=== PATIENT | male | born 1945 | race Caucasian/White ===

== ENCOUNTER → 2016-10-19 | Day surgery (SDC) | payer OTHER ==
[2016-10-10 10:23] VITALS: Ht 180.3 cm; Wt 79.5 kg
[~2016-10-19] VITALS: Ht 180.3 cm; Wt 79.5 kg
[~2016-10-19] MED LIST: AMLO10TA4 PO; ASPEC81 PO; CARV12.52 PO; CHOL1000 PO; FERR1TAB23 PO; FURO20TA PO; GLC/500 PO; HYDR100T12 PO; LACTATED RINGER'S 1000ML 1,000 ML IV ONE; LIDOCAINE HCL 2% 2 ML VIAL (20MG/ML) ONE; PROPOFOL IV EMULSION 10 MG/ML 20 ML VIAL IV ONE; SIMV10TA2 PO; VALA1TAB2 PO
--- NOTE | 2016-10-19 08:53 | Endo History and Physical ---
History & Physical Date of Service: Oct 19, 2016. Chief Complaint: HX OF POLYPS Referring Physician: DR HERNANDEZ History of Present Illness Patient with a history of colonic polyps for surveillance colonoscopy today. He has no specific complaints.. Past Medical History Diabetes, High Cholesterol, Kidney Disease, Depression Past Surgical History Hx Cardiac Surgery: No Hx Internal Defibrillator: No Hx Pacemaker: No Hx Abdominal Surgery: No Hx of Implantable Prosthesis: No Hx Post-Op Nausea and Vomiting: No Hx Cancer Surgery: No Hx Thoracic Surgery: No Hx Orthopedic: No Hx Urinary Tract Surgery: No Family History None Social History Smoking Status: Former Smoker Hx Substance Use: No Hx Alcohol Use: Yes (OCCASIONAL) Allergies Coded Allergies: Sitagliptin (Verified Allergy, Unknown, LIGHTHEADEDNESS AND PAINS IN UPPER STOMACH, 10/19/16) Current Medications Reported Home Medications Medications Dose Route/Sig Max Daily Dose Days Date Category Dose Instructions Iron (Ferrous Sulfate) 325 Mg Tab 2 Tabs PO QAM 10/10/16 Reported Vitamin D3 (Cholecalciferol) 1,000 Unit Tab 1 Tab PO QAM 10/10/16 Reported Norvasc (Amlodipine Besylate) 10 Mg Tab 10 Mg PO QAM 10/10/16 Reported Apresoline (Hydralazine Hcl) 100 Mg Tab 100 Mg PO TID 10/10/16 Reported Glucophage (Metformin Hcl) 500 Mg Tab 2 Tabs PO BID 10/10/16 Reported Lasix (Furosemide) 20 Mg Tab 20 Mg PO QAM 03/24/12 Reported Coreg (Carvedilol) 12.5 Mg Tab 12.5 Mg PO BID 03/24/12 Reported TAKE THIS MEDICATION WITH FOOD. Valtrex (Valacyclovir Hcl) 1 Gm Tab 2,000 Mg PO Q12HR PRN/UD 11/07/11 Reported TAKE THIS MEDICATION NEEDED FOR COLD SORES FOR ONE DAY. Zocor (Simvastatin) 10 Mg Tab 10 Mg PO HS 11/07/11 Reported Ecotrin Or Generic * (Aspirin) 81 Mg Ectab 81 Mg PO QAM 07/15/06 Reported Vital Signs Weight (Kilograms): 79.55 Height (Feet): 5 Height (Inches): 11 Date Time Temp Pulse Resp B/P (MAP) Pulse Ox O2 Delivery O2 Flow Rate FiO2 10/19/16 08:39 36.6 92 20 180/89 (119) 98 Room Air Physical Exam General Appearance: no apparent distress Respiratory/Chest: Auscultation: breath sounds normal Cardiovascular: Heart Auscultation: RRR, murmur Abdomen: Inspection & Palpation: soft Assessment and Plan Colonoscopy for evaluation of colonic polyps. We discussed the risks and benefits to include bleeding, infection, perforation and missed polyps.
--- NOTE | 2016-10-19 09:28 | GI REPORT ---
Procedure Date: 10/19/2016 9:01 AM Procedure: Colonoscopy Indications: High risk colon cancer surveillance: Personal history of colonic polyps Medicines: Monitored Anesthesia Care Complications: No immediate complications. Estimated blood loss: Minimal. Estimated Blood Loss: Estimated blood loss was minimal. Procedure: Pre-Anesthesia Assessment: - Prior to the procedure, a History and Physical was performed, and patient medications, allergies and sensitivities were reviewed. The patient's tolerance of previous anesthesia was reviewed. - The risks and benefits of the procedure and the sedation options and risks were discussed with the patient. All questions were answered and informed consent was obtained. - Patient identification and proposed procedure were verified prior to the procedure by the physician, the nurse and the flight readiness technician. The procedure was verified in the procedure room. - Pre-procedure physical examination revealed no contraindications to sedation. - ASA Grade Assessment: III - A patient with severe systemic disease. - After reviewing the risks and benefits, the patient was deemed in satisfactory condition to undergo the procedure. - The anesthesia plan was to use monitored anesthesia care (MAC). - Immediately prior to administration of medications, the patient was re-assessed for adequacy to receive sedatives. - The heart rate, respiratory rate, oxygen saturations, blood pressure, adequacy of pulmonary ventilation, and response to care were monitored throughout the procedure. - The physical status of the patient was re-assessed after the procedure. After I obtained informed consent, the scope was passed under direct vision. Throughout the procedure, the patient's blood pressure, pulse, and oxygen saturations were monitored continuously. The On-site loaner was introduced through the anus and advanced to the cecum, identified by appendiceal orifice and ileocecal valve. The colonoscopy was performed without difficulty. The patient tolerated the procedure well. The quality of the bowel preparation was good. Findings: The perianal and digital rectal examinations were normal. Pertinent negatives include normal sphincter tone. The terminal ileum appeared normal. A 6 mm polyp was found in the descending colon. The polyp was sessile. The polyp was removed with a cold snare. Resection and retrieval were complete. Estimated blood loss was minimal. Many medium-mouthed diverticula were found in the sigmoid colon, in the descending colon and in the ascending colon. Internal hemorrhoids were found during retroflexion. The hemorrhoids were mild. The exam was otherwise without abnormality. Impression: - The examined portion of the ileum was normal. - One 6 mm polyp in the descending colon, removed with a cold snare. Resected and retrieved. - Mild diverticulosis in the sigmoid colon, in the descending colon and in the ascending colon. - Internal hemorrhoids. - The examination was otherwise normal. Recommendation: - Discharge patient to home (ambulatory). - Advance diet as tolerated today. - Await pathology results. - Repeat colonoscopy in 5 years for surveillance based on pathology results. - Return to GI office PRN. Essence Bagley D.O. Essence Bagley, 10/19/2016 9:27:22 AM This report has been signed electronically. Note Initiated On: 10/19/2016 9:01 AM I attest to the content of the Intraoperative Record and orders documented therein, exceptions below
--- NOTE | 2016-10-19 09:28 | Discharge Instructions ---
Endoscopy Patient Instructions Date / Procedure(s) Performed Oct 19, 2016. Colonoscopy Allergy Information Coded Allergies: Sitagliptin (Verified Allergy, Unknown, LIGHTHEADEDNESS AND PAINS IN UPPER STOMACH, 10/19/16) Discharge Date / Findings Oct 19, 2016. Internal hemorrhoids Diverticulosis 1 colon polyp Medication Instructions Stopped Medication(s): ASA ,FE 1/2 DOSE OF METFORMIN Reported Home Medications Medications Dose Route/Sig Max Daily Dose Days Date Category Dose Instructions Iron (Ferrous Sulfate) 325 Mg Tab 2 Tabs PO QAM 10/10/16 Reported Vitamin D3 (Cholecalciferol) 1,000 Unit Tab 1 Tab PO QAM 10/10/16 Reported Norvasc (Amlodipine Besylate) 10 Mg Tab 10 Mg PO QAM 10/10/16 Reported Apresoline (Hydralazine Hcl) 100 Mg Tab 100 Mg PO TID 10/10/16 Reported Glucophage (Metformin Hcl) 500 Mg Tab 2 Tabs PO BID 10/10/16 Reported Lasix (Furosemide) 20 Mg Tab 20 Mg PO QAM 03/24/12 Reported Coreg (Carvedilol) 12.5 Mg Tab 12.5 Mg PO BID 03/24/12 Reported TAKE THIS MEDICATION WITH FOOD. Valtrex (Valacyclovir Hcl) 1 Gm Tab 2,000 Mg PO Q12HR PRN/UD 11/07/11 Reported TAKE THIS MEDICATION NEEDED FOR COLD SORES FOR ONE DAY. Zocor (Simvastatin) 10 Mg Tab 10 Mg PO HS 11/07/11 Reported Ecotrin Or Generic * (Aspirin) 81 Mg Ectab 81 Mg PO QAM 07/15/06 Reported Provider Instructions Activity Restrictions - No exercising or heavy lifting for 24 hours. - Do not drink alcohol the day of the procedure. - Do not drive a car or operate machinery until the day after the procedure. - Do not make any important decisions or sign important papers in 24 hours after the procedure. Following Day: - Return to full activity which may include returning to work/school. Diet Start your diet with liquids and light foods (jello, soup, juice, toast). Then eat your usual diet if not nauseated. Treatment For Common After Affects For mild abdominal pain, bloating, or excessive gas: - Rest - Eat lightly - Lie on right side Follow-Up Information Follow-up with DR HERNANDEZ as scheduled Await pathology results Repeat colonoscopy in 5 years Consider addition of a fiber supplement Anesthesia Information What You Should Know You have had a procedure that required some medicine to reduce anxiety and discomfort. This treatment is called moderate sedation. After receiving the treatment, you may be sleepy, but you will be able to breathe on your own. The effects of the treatment may last for several hours. Follow these instructions along with Activity/Diet recommendations noted above: * Do NOT do anything where dizziness or clumsiness would be dangerous. * Rest quietly at home today, then you can be up and about tomorrow. * Have a responsible person stay with you the rest of today. * You may have had an I.V. today. If so, you may take the dressing off later today. Recommendations Call your doctor if: * Trouble breathing * Continuous vomiting for more than 24 hours * Temperature above 101 degrees * Severe abdominal pain or bloating * Pain not relieved by pain medicine ordered * There is increased drainage or redness from any incision * A large amount of rectal bleeding greater than 2-3 tablespoons. (If you had a polyp/s removed or have hemorrhoids, a small amount of blood - from the rectum is to be expected.) * You have any unanswered questions or concerns. IN THE EVENT OF A SERIOUS EMERGENCY, GO TO THE NEAREST EMERGENCY ROOM Your discharge instructions were prepared by provider Essence Bagley. Patient Instructions Signature Page Galen Jack Patient (or Guardian) Signature/Date: I have read and understand the instructions given to me by my caregivers. Caregiver/RN/Doctor Signature/Date: The above-named patient and/or guardian has received patient instructions on this date. + Original Patient Signature Page (only) stays with chart. Please make copy for patient.
[2016-10-19 10:00] VITALS: BP 165/69; PULSE 73; O2SAT 98
--- NOTE | 2016-10-19 10:08 | Anesthesiology Progress Note ---
Anesthesia Post Op Note Date & Time Oct 19, 2016 at 10:08 Vital Signs Pain Intensity: 0 Vital Signs Past 12 Hours Date Time Temp Pulse Resp B/P (MAP) Pulse Ox O2 Delivery O2 Flow Rate FiO2 10/19/16 10:00 73 20 165/69 (101) 98 Room Air 10/19/16 09:39 16 170/70 (103) 98 Room Air 10/19/16 09:24 59 16 125/57 (79) 98 Room Air 10/19/16 08:39 36.6 92 20 180/89 (119) 98 Room Air Notes Mental Status: alert / awake / arousable, participated in evaluation Pt Amnestic to Procedure: Yes Nausea / Vomiting: adequately controlled Pain: adequately controlled Airway Patency, RR, SpO2: stable & adequate BP & HR: stable & adequate Hydration State: stable & adequate Anesthetic Complications: no major complications apparent
== END | disposition home or self-care (01) ==
LOC: C.GI 07:41
PROVIDERS: ATTEND Internal Medicine Gastroenterology
DX: Z12.11 Encounter for screening for malignant neoplasm of colon (principal); Z86.010 Personal history of colon polyps; D12.4 Benign neoplasm of descending colon; K64.8 Other hemorrhoids; E11.9 Type 2 diabetes mellitus without complications; K57.30 Diverticulosis of large intestine without perforation or abscess without bleeding; E78.00 Pure hypercholesterolemia, unspecified; F32.9 Major depressive disorder, single episode, unspecified; Z87.891 Personal history of nicotine dependence; Z79.82 Long term (current) use of aspirin

== ENCOUNTER 2018-07-13 08:51 | Inpatient (IN) ==
--- NOTE | 2018-07-13 09:53 | Emergency Department Note ---
Entered by Oli Perez acting as a scribe for History of Present Illness General Chief complaint: Leg Weakness, Bilateral Stated complaint: LOST FEELING IN BOTH LEGS AND HANDS ARE GOING NUMB Time Seen by Provider: 07/13/18 09:29 Source: patient Mode of arrival: ambulatory History of Present Illness Provider complaint: Leg Weakness Onset (ago): day(s) 2 Location: lower extremity Radiation: back (lower back ) Pain Consistency: + constant Quality: + other (Leg Weakness,) Associated symptoms: + headaches; no chest pain and no shortness of breath Patient is a 72 year old male who presents himself to the ER with complaint of leg weakness beginning three days ago. Patient was working on modifying his jeep. He was leaning over the baxter of the vehicle when he tripped over a foot stool which was on the ground. Patient states he did not his head on the impact of the fall. After the incident patient went about his regular day and woke up the next morning and had leg weakness. He rates his pain consistency as constant. Patient states the pain does radiate to his lower back as well. Patent states he is diabetic and takes regular aspirin. He denies chest pain and shortness of breath. Home Medications Home Medications Medication Instructions Recorded Confirmed Type amlodipine [Norvasc] 10 mg PO QAM 11/27/17 07/13/18 History aspirin [Aspirin Low Dose] 81 mg PO QAM 11/27/17 07/13/18 History atorvastatin [Lipitor] 20 mg PO DAILY 11/27/17 07/13/18 History carvedilol [Coreg] 12.5 mg PO BID 11/27/17 07/13/18 History cholecalciferol (vitamin D3) 3,000 unit PO QAM 11/27/17 07/13/18 History [Vitamin D3] ferrous sulfate 325 mg PO BID 11/27/17 07/13/18 History hydralazine 100 mg PO TID 11/27/17 07/13/18 History paroxetine HCl [Paxil] 20 mg PO DAILY 11/27/17 07/13/18 History torsemide 10 mg PO DAILY 07/13/18 07/13/18 History Allergies Allergy/AdvReac Type Severity Reaction Status Date / Time sitagliptin Allergy Unknown LIGHTHEADEDNESS Verified 11/27/17 17:46 AND PAINS IN UPPER STOMACH Past Med/Surg History Medical History Diabetes mellitus, type II (Chronic) Chronic renal failure, stage 4 (severe) (Chronic) HTN (hypertension) (Chronic) Depression (Chronic) Hyperlipidemia (Chronic) ANI (acute kidney injury) (Resolved) Anemia (Chronic) Hgb 6.8 on admission s/p 2 units PRBCs 11/2017 Anxiety (Chronic) Surgical History History of esophagogastroduodenoscopy (EGD) (Chronic) 11/28/2017: esophagitis, +H Pylori. Performed at [facility] History of cataract surgery (Chronic) S/P colonoscopy (Chronic) Social History Preferred Language: Upper Sorbian Communication Ability: Effective [employer] Required: No Beliefs That Will Affect Care: None Current Living Situation: Alone Other Information That Helps Us Care for You: No Feels Safe at Home: Yes Safety Concerns: Feels Safe At This Time Smoking Status: Former smoker Cigarettes Per Day: 2004 Do You Dip or Chew Tobacco: No Second Hand Exposure: No Tobacco Cessation Education Requested by Patient: No Hx Alcohol Use: Yes Alcohol type: beer Alcohol Intake Frequency Comment: 3-4 beers a week Hx Substance Use: No Review of Systems See HPI for pertinent positives & negatives. and A total of 10 systems reviewed and were otherwise negative Physical Exam Vital Signs Vital Signs - 24 hr 07/13/18 08:57 07/13/18 09:14 07/13/18 10:58 Temperature 36.3 C L Temperature Source Oral Sepsis Recent Fever Within 48 Hours No Sepsis Action Taken by Nursing No Action Required Pulse Rate 87 Pulse Rate [Left Finger] 79 Pulse Rate [Right Brachial] Pulse Rhythm [Left Finger] Pulse Strength [Left Finger] Respiratory Rate 20 20 Respiratory Effort / Characteristics Respiratory Depth Respiratory Pattern Blood Pressure 169/73 H Blood Pressure [Left Arm] 173/88 H Blood Pressure [Right Arm] Blood Pressure Mean 105 Blood Pressure Mean [Left Arm] 116 Blood Pressure Mean [Right Arm] Blood Pressure Position Sitting Blood Pressure Position [Left Arm] Blood Pressure Position [Right Arm] Pulse Oximetry 100 100 98 Oxygen Delivery Method Room Air Room Air Room Air 07/13/18 12:40 07/13/18 13:54 07/13/18 14:06 Temperature Temperature Source Sepsis Recent Fever Within 48 Hours Sepsis Action Taken by Nursing Pulse Rate 75 Pulse Rate [Left Finger] 75 75 Pulse Rate [Right Brachial] Pulse Rhythm [Left Finger] Pulse Strength [Left Finger] Respiratory Rate 16 18 18 Respiratory Effort / Characteristics Respiratory Depth Respiratory Pattern Blood Pressure 155/73 H Blood Pressure [Left Arm] 167/82 H 155/73 H Blood Pressure [Right Arm] Blood Pressure Mean Blood Pressure Mean [Left Arm] 110 100 Blood Pressure Mean [Right Arm] Blood Pressure Position Blood Pressure Position [Left Arm] Blood Pressure Position [Right Arm] Pulse Oximetry 99 100 100 Oxygen Delivery Method Room Air Room Air Room Air 07/13/18 14:45 07/13/18 17:17 Temperature 37.4 C 36.3 C L Temperature Source Oral Oral Sepsis Recent Fever Within 48 Hours Sepsis Action Taken by Nursing Pulse Rate Pulse Rate [Left Finger] 74 Pulse Rate [Right Brachial] 77 Pulse Rhythm [Left Finger] Regular Pulse Strength [Left Finger] Normal Respiratory Rate 18 20 Respiratory Effort / Characteristics Non-Labored Spontaneous Respiratory Depth Normal Respiratory Pattern Regular Blood Pressure Blood Pressure [Left Arm] 158/74 H Blood Pressure [Right Arm] 168/67 H Blood Pressure Mean Blood Pressure Mean [Left Arm] 102 Blood Pressure Mean [Right Arm] 100 Blood Pressure Position Blood Pressure Position [Left Arm] Lying Blood Pressure Position [Right Arm] Semi-fowlers Pulse Oximetry 98 96 Oxygen Delivery Method Room Air Room Air General: Non-ill appearing 72 year old male in no acute distress. HEENT: Normal cephalic atraumatic. Pupils are equal round and reactive to light. Extraocular movements are intact. Oropharynx is pink with moist mucous membranes. No swelling of the mouth lips or tongue. Neck: Supple with a midline trachea. No meningeal signs or stiffness, no JVD or bruits. No Stridor. Chest: Clear to auscultation bilaterally. No wheezes or rhonchi. No increased work of breathing. Heart: regular rate and rhythm. Abdomen: Soft nontender, nondistended without rebound guarding or rigidity. Bruise left lower ribs/left upper abdomen Extremities: No cyanosis clubbing or edema. No calf tenderness or asymmetry Spine/Back. Non tender to palpation. No CVA tenderness Skin: Good turgor without rashes. Neurologic exam: Cranial nerves two through 12 are intact. Motor and sensation are intact and symmetrical throughout. 2+ lower extremities reflexes Course 0931: Past medical records reviewed. The patient was evaluated in room B10. A complete history and physical examination was performed. 1045: The patient is feeling better and will do an ambulatory trial. Patient wants to go home. 1135: I spoke with Autumn Chun PA-C regarding the patients case. Dr. Jolly will admit the patient under his care. Patient has verbalized agreement to this treatment plan. Consultations Consultation #1: Autumn Chun PA-C Time: 11:35 Administered Medications Hydralazine HCl (Apresoline) 100 mg PO TID [place] Stop: 08/12/18 14:41 Last Admin: 07/13/18 15:20 Dose: 100 mg Documented by: [id number] Sodium Chloride (Nss 1000ml) 1,000 mls @ 80 mls/hr IV .[id number] [place] Stop: 07/14/18 15:41 Last Admin: 07/13/18 15:21 Dose: 80 mls/hr Documented by: [id number] Lorazepam (Ativan) 0.5 mg PO 1500 [place] Stop: 07/13/18 23:59 Last Admin: 07/13/18 15:20 Dose: 0.5 mg Documented by: [id number] Discontinued Medications Insulin Human Regular 3 units/ (Syringe) 0.03 mls @ 0.0033 mls/min SC NOW STA Stop: 07/13/18 10:56 Last Admin: 07/13/18 11:03 Dose: 0.0033 mls/min Documented by: [id number] Cosigned by: [id number] Insulin Human Regular (Novolin R U-100 Per Unit) Confirm Administered Dose 3 units .ROUTE .STK-MED ONE Stop: 07/13/18 11:01 Last Admin: 07/13/18 11:03 Dose: Not Given Documented by: [id number] Medical Decision Making Differential Diagnosis Traumatic injuries, musculoskeletal, spinal injury, cardiac disease, infection, electrolyte or metabolic abnormality. Medical Records Attestation: I reviewed the patient's medical records. Home Medications Current Medication List: was personally reviewed by me Laboratory Data Attestation: I reviewed the patient's lab results. Result diagrams: 07/13/18 09:13 07/13/18 09:13 Lab Results 07/13/18 07/13/18 07/13/18 Range/Units 09:13 09:13 09:13 WBC 10.24 (4.8-10.8) K/uL RBC 3.76 L (4.7-6.1) M/uL Hgb 11.2 L (14.0-18.0) g/dL Hct 33.0 L (42-52) % MCV 87.8 (80-100) fL MCH 29.8 (25-34) pg MCHC 33.9 (32-36) g/dL RDW Std Deviation 41.6 (36.4-46.3) fL RDW Coeff of Juma 12.8 (11.5-14.5) % Plt Count 208 (130-400) K/uL MPV 10.9 H (7.4-10.4) fL Immature Gran % (Auto) 0.8 % Neut % (Auto) 80.1 % Lymph % (Auto) 11.3 % [place] % (Auto) 7.2 % Eos % (Auto) 0.4 % Baso % (Auto) 0.2 % Immature Gran # (Auto) 0.08 H (0.00-0.02) K/uL Neut # (Auto) 8.20 H (1.4-6.5) K/uL Lymph # (Auto) 1.16 L (1.2-3.4) K/uL [place] # (Auto) 0.74 H (0.11-0.59) K/uL Eos # (Auto) 0.04 (0-0.5) K/uL Baso # (Auto) 0.02 (0-0.2) K/uL Sodium 135 L (136-145) mmol/L Potassium 3.8 (3.5-5.1) mmol/L Chloride 104 (98-107) mmol/L Carbon Dioxide 20 L (21-32) mmol/L Anion Gap 11.0 (3-11) BUN 55 H (7-18) mg/dl Creatinine 2.85 H (0.6-1.4) mg/dl Est Cr Clr Drug Dosing 24.6 ml/min Est GFR ( Amer) 24.3 Est GFR (Non-Af Amer) 21.0 BUN/Creatinine Ratio 19.3 (10-20) Glucose 324 H* (70-99) mg/dl POC Glucose (70-99) Calcium 9.1 (8.5-10.1) mg/dl Total Bilirubin 0.4 (0.2-1) mg/dl AST 20 (15-37) U/L ALT 21 (12-78) U/L Alkaline Phosphatase 164 H (45-117) U/L Troponin I < 0.015 Cancelled (0-0.045) ng/ml Total Protein 8.8 H (6.4-8.2) gm/dl Albumin 3.8 (3.4-5.0) gm/dl Globulin 5.0 H (2.5-4.0) gm/dl Albumin/Globulin Ratio 0.8 L (0.9-2) Beta-Hydroxybutyric Acd 2.22 (0.2-2.81) mg/dl TSH 1.440 (0.300-4.500) uIu/ml Urine Color Urine Appearance (Clear) Urine pH (4.5-7.5) Ur Specific [place] (1.000-1.030) Urine Protein (Negative) Urine Glucose (UA) (Negative) Urine Ketones (Negative) Urine Blood (Negative) Urine Nitrite (Negative) Urine Bilirubin (Negative) Urine Urobilinogen (Negative) Ur Leukocyte Esterase (Negative) Urine WBC (Auto) (0-5) /hpf Urine RBC (Auto) (0-4) /hpf U Hyaline Cast (Auto) (0-5) /lpf U Epithel Cells (Auto) (0-5) /lpf Urine Bacteria (Auto) (Negative) 07/13/18 07/13/18 07/13/18 Range/Units 09:55 13:15 17:02 WBC (4.8-10.8) K/uL RBC (4.7-6.1) M/uL Hgb (14.0-18.0) g/dL Hct (42-52) % MCV (80-100) fL MCH (25-34) pg MCHC (32-36) g/dL RDW Std Deviation (36.4-46.3) fL RDW Coeff of Juma (11.5-14.5) % Plt Count (130-400) K/uL MPV (7.4-10.4) fL Immature Gran % (Auto) % Neut % (Auto) % Lymph % (Auto) % [place] % (Auto) % Eos % (Auto) % Baso % (Auto) % Immature Gran # (Auto) (0.00-0.02) K/uL Neut # (Auto) (1.4-6.5) K/uL Lymph # (Auto) (1.2-3.4) K/uL [place] # (Auto) (0.11-0.59) K/uL Eos # (Auto) (0-0.5) K/uL Baso # (Auto) (0-0.2) K/uL Sodium (136-145) mmol/L Potassium (3.5-5.1) mmol/L Chloride (98-107) mmol/L Carbon Dioxide (21-32) mmol/L Anion Gap (3-11) BUN (7-18) mg/dl Creatinine (0.6-1.4) mg/dl Est Cr Clr Drug Dosing ml/min Est GFR ( Amer) Est GFR (Non-Af Amer) BUN/Creatinine Ratio (10-20) Glucose (70-99) mg/dl POC Glucose 192 H 246 H (70-99) Calcium (8.5-10.1) mg/dl Total Bilirubin (0.2-1) mg/dl AST (15-37) U/L ALT (12-78) U/L Alkaline Phosphatase (45-117) U/L Troponin I (0-0.045) ng/ml Total Protein (6.4-8.2) gm/dl Albumin (3.4-5.0) gm/dl Globulin (2.5-4.0) gm/dl Albumin/Globulin Ratio (0.9-2) Beta-Hydroxybutyric Acd (0.2-2.81) mg/dl TSH (0.300-4.500) uIu/ml Urine Color Yellow Urine Appearance Clear (Clear) Urine pH 6.5 (4.5-7.5) Ur Specific [place] 1.013 (1.000-1.030) Urine Protein 2+ H (Negative) Urine Glucose (UA) 1+ H (Negative) Urine Ketones Negative (Negative) Urine Blood Negative (Negative) Urine Nitrite Negative (Negative) Urine Bilirubin Negative (Negative) Urine Urobilinogen Negative (Negative) Ur Leukocyte Esterase Negative (Negative) Urine WBC (Auto) 0 (0-5) /hpf Urine RBC (Auto) 0-4 (0-4) /hpf U Hyaline Cast (Auto) 0 (0-5) /lpf U Epithel Cells (Auto) 0-5 (0-5) /lpf Urine Bacteria (Auto) Negative (Negative) Imaging Data Attestation: I personally reviewed and interpreted this imaging study as follows: Radiologist's Impression: Radiology results as stated below per my review and the radiologist's interpretation: CT lumbar spine wo con HISTORY: 72 years-old Male eval for trauma, leg weakness acute low back pain status post fall with left leg weakness COMPARISON: CT abdomen and pelvis of same day TECHNIQUE: Multiple axial CT images of the lumbar spine were obtained without the use of IV contrast. A dose lowering technique was used consistent with the principals of ALARA. FINDINGS: Demineralized appearance of the bones. Severe disc space narrowing with posterior disc osteophyte complex formations noted at-L4 and L4-L5. Severe facet arthropathy at these levels is also noted along with posterior annular disc bulging. No acute fracture or subluxation identified. Remote left L5 pars defe ct. No spondylolisthesis. Image sacrum and iliac bones appear intact. Moderate degenerative changes of the SI joints. L1-L2: No significant central canal or foraminal narrowing. L2-L3: Spondylitic spurring with posterior annular disc bulge and moderate facet arthrosis with ligamentum flavum thickening. Mild central canal stenosis without significant foraminal narrowing. L3-L4: Posterior disc osteophyte complex formation with severe facet arthrosis and ligamentum flavum thickening. Findings cause moderate central canal with moderate left and mild to moderate right foraminal narrowing. L4-L5: Posterior disc osteophyte complex formation with severe facet arthrosis and ligamentum flavum thickening. Moderate central canal stenosis with mild to moderate right and moderate left foraminal narrowing. L5-S1: Circumferential annular disc bulge with severe facet arthrosis and ligamentum flavum thickening. No significant central canal or left foraminal narrowing. Mild right foraminal stenosis. No aortic aneurysm or adenopathy. Paraspinal tissues are unremarkable. IMPRESSION: 1. No acute fracture or subluxation of the lumbar spine. 2. Multilevel degenerative changes as above. The above report was generated using voice recognition software. It may contain grammatical, syntax or spelling errors. Electronically signed by: John Vitale M.D. 07/13/2018 10:19 AM Dictated: 07/13/18 1013 Transcribed: 07/13/[address] head/brain wo con CLINICAL HISTORY: 72 years-old Male with weakness. Acute weakness with recent fall TECHNIQUE: Multiple axial CT images of the head were obtained without contrast. A dose lowering technique was utilized adhering to the principles of ALARA. COMPARISON: None available. FINDINGS: No acute intracranial hemorrhage, midline shift, intracranial mass, hydrocephalus, territorial ischemia or abnormal extra-axial collection. Age- related involutional changes with ex vacuo ventriculomegaly. Scattered white matter hypodensities are suggestive of chronic microvascular ischemic changes. Cerebral vascular calcifications noted. The calvarium is intact. The paranasal sinuses, mastoid air cells, and middle ear cavities are clear. IMPRESSION: No acute intracranial abnormality. The above report was generated using voice recognition software. It may contain grammatical, syntax or spelling errors. Electronically signed by: John Vitale M.D. 07/13/2018 10:07 AM Dictated: 07/13/18 1005 Transcribed: 07/13/[address] WITHOUT CONTRAST CT DOSE: 1305.70 mGy.cm HISTORY: Acute left upper quadrant and left rib pain status post recent fall eval for trauma, Hit luq. hx of renal insuf TECHNIQUE: Multiaxial CT images of the abdomen and pelvis were performed without contrast. A dose lowering technique was utilized adhering to the principles of ALARA. COMPARISON STUDY: CT lumbar spine of same day FINDINGS: There is mild subsegmental bibasilar atelectasis. There is no pneumatosis or pneumoperitoneum. Moderate cardiomegaly with coronary arterial calcifications. Scattered calcified granulomata about the liver and spleen. 7 mm cystic focus about the pancreatic neck on image 140 series 5 indeterminate and may reflect a sidebranch IPMN. Mild generalized pancreatic atrophy. No pancreatic ductal dilation. Moderate thickening of the right adrenal gland. 1.7 cm left adrenal adenoma. Mild nonspecific bilateral perinephric stranding. Linear nonobstructing calculus of the interpolar right kidney. There is no ureteral calculi or obstructive uropathy. Mild prostamegaly. Urinary bladder is mildly distended. Small fat filled right inguinal hernia. Now prosthesis with left inferior hemipelvis pump device. Calcifications noted about the abdominal aorta. There is no adenopathy. Mild wall thickening about the distal esophagus. Moderate sized duodenal diverticulum. The study is mildly motion degraded. No bowel obstruction. Extensive colonic diverticulosis. Wall thickening throughout the sigmoid colon is likely secondary to chronic hypertrophy of the muscularis. Normal-appearing appendix. No ascites or mesenteric inflammation. Soft tissues are unremarkable. No retroperitoneal hematoma. Degenerative changes of the spine, pelvis and hips. No acute displaced rib fracture identified. Please IMPRESSION: 1. No acute intra-abdominal or intrapelvic abnormality identified. 2. No acute fracture. 3. Nonobstructing right nephrolithiasis. 4. Prior granulomatous disease. 5. Left adrenal adenoma. 6. Extensive colonic diverticulosis. Wall thickening of the sigmoid colon is likely secondary to hypertrophy of the muscularis propria secondary to chronic diverticular disease. 7. Additional findings as above. Electronically signed by: John Vitale M.D. 07/13/2018 10:31 AM Dictated: 07/13/18 1021 Transcribed: 07/13/18 1021 XR chest 1V portable HISTORY: 72 years-old Male weakness acute weakness COMPARISON: CT abdomen and pelvis of same day, chest radiograph 11/28/2017 TECHNIQUE: Portable AP view of the chest FINDINGS: Cardiomediastinal and hilar silhouettes are within normal limits. Calcification of the thoracic aortic arch. There is no pneumothorax, pleural effusion, focal airspace consolidation or overt pulmonary edema. Degenerative changes of the shoulders and spine. IMPRESSION: No acute process. The above report was generated using voice recognition software. It may contain grammatical, syntax or spelling errors. Electronically signed by: John Vitale M.D. 07/13/2018 10:32 AM Dictated: 07/13/18 1031 Transcribed: 07/13/18 1031 ECG Data Attestation: I personally reviewed and interpreted this ECG as follows: Indication: other (Leg Weakness) Rate (beats per minute): 88 Rhythm: normal sinus Findings: + left axis deviation; no other (No ischemic change ) Comparison ECG Date: from (November) Change: the following changes noted (PVCs are now absent ) Blood Pressure Blood Pressure Findings: Elevated blood pressure Blood Pressure Disposition: further management by hospitalist [facility] Narrative This patient comes in as described above. He is complaining of weakness in both of his legs and may be his arms. On exam, he has a normal neurologic exam. he feels particularly weak and has pain in his left lower back when he moves or tries to get up. He has normal reflexes. He did fall on Saturday and had some minor trauma where he hit his left upper abdomen/lower chest. He has had no chest pain or shortness of breath. He does have a history of diabetes and renal failure. IV access established. EKG was obtained in multiple blood testing was obtained. I also ordered CAT scans without contrast given his severe chronic renal failure. His EKG does not suggest acute coronary syndrome or arrhythmia. His blood sugar was elevated in 300s. He is mildly acidotic but has no ketones. He was given insulin 3 units subcu to bring this down. He has no evidence to suggest DKA at this point. I do not think is likely causing his symptoms. CAT scan of his head as well as back and abdomen were unremarkable for any acute findings. He does have a lot of degenerative changes and some spinal stenosis and spine and it is possible that it is causing these. I did get him up and have him walk. he does have a hard time walking. he can walk with a walker but seems very weak and this is new for him. I am concerned about sending him home from a safety issue and also want to make sure is nothing else going on he may need further work-up including possible MRIs. I have counseled the hospitalist to see him in the ER for these measures. Impression & Plan Weakness, Hyperglycemia, Diabetes mellitus, type II, Contusion of rib on left side, Ambulatory dysfunction Discharge Plan Visit Data *Final* Discharge Date/Time: 07/13/18 14:06 Chief Complaint: Leg Weakness, Bilateral Stated Complaint: LOST FEELING IN BOTH LEGS AND HANDS ARE GOING NUMB ED Provider: José Miguel Miller Discharge Problem: Weakness, Hyperglycemia, Diabetes mellitus, type II, Contusion of rib on left side, Ambulatory dysfunction Patient Disposition: Admitted As Inpatient Discharge Instructions Interventions: ED Discharge Assessment Last Done: 07/13/18 14:06 The vikkiibe's documentation has been prepared under my direction and personally reviewed by me in its entirety. I confirm that the note above accurately reflects all work, treatment, procedures, and medical decision making performed by me.
--- NOTE | 2018-07-13 10:08 | CT Scan Report ---
CT head/brain wo con CLINICAL HISTORY: 72 years-old Male with weakness. Acute weakness with recent fall TECHNIQUE: Multiple axial CT images of the head were obtained without contrast. A dose lowering tech nique was utilized adhering to the principles of ALARA. COMPARISON: None available. FINDINGS: No acute intracranial hemorrhage, midline shift, intracranial mass, hydrocephalus, territorial ischem ia or abnormal extra-axial collection. Age-related involutional changes with ex vacuo ventriculomegal y. Scattered white matter hypodensities are suggestive of chronic microvascular ischemic changes. Cer ebral vascular calcifications noted. The calvarium is intact. The paranasal sinuses, mastoid air cells, and middle ear cavities are clear . IMPRESSION: No acute intracranial abnormality. The above report was generated using voice recognition software. It may contain grammatical, syntax o r spelling errors. Electronically signed by: John Vitale M.D. 07/13/2018 10:07 AM
[2018-07-13 10:09] LABS: Basophils # (auto) 0.02 K/uL (0-0.2); Basophils % (auto) 0.2 %; Eosinophils # (auto) 0.04 K/uL (0-0.5); Eosinophils % (auto) 0.4 %; Hemoglobin 11.2 g/dL (14.0-18.0); Immature Granulocytes # (auto) 0.08 K/uL (0.00-0.02); Immature Granulocytes % (auto) 0.8 %; Lymphocytes # (auto) 1.16 K/uL (1.2-3.4); Lymphocytes % (auto) 11.3 %; Mean Corpuscular Hgb Conc 33.9 g/dL (32-36); Mean Corpuscular Volume 87.8 fL (80-100); Mean Platelet Volume 10.9 fL (7.4-10.4); Monocytes # (auto) 0.74 K/uL (0.11-0.59); Monocytes % (auto) 7.2 %; Neutrophils % (auto) 80.1 %; Platelet Count 208 K/uL (130-400); RDW Coefficient of Variation 12.8 % (11.5-14.5); RDW Standard Deviation 41.6 fL (36.4-46.3); Red Blood Count 3.76 M/uL (4.7-6.1); White Blood Count 10.24 K/uL (4.8-10.8)
[2018-07-13 10:13] LABS: Appearance Urine Clear (Clear); Bacteria Urine Automated Negative (Negative); Bilirubin Urine Negative (Negative); Blood Urine Negative (Negative); Cast Urine Automated 0 /lpf (0-5); Color Urine Yellow; Epithelial Cell Urine Auto 0-5 /lpf (0-5); Glucose Urine UA 1+ (Negative); Ketones Urine Negative (Negative); Leukocyte Esterase Urine Negative (Negative); Nitrite Urine Negative (Negative); Protein Urine 2+ (Negative); RBC Urine Automated 0-4 /hpf (0-4); Specific Gravity Urine 1.013 (1.000-1.030); Urobilinogen Urine Negative (Negative); WBC Urine Automated 0 /hpf (0-5); pH Urine 6.5 (4.5-7.5)
[2018-07-13 10:21] LABS: Alanine Aminotransferase 21 U/L (12-78); Albumin Level 3.8 gm/dl (3.4-5.0); Aspartate Aminotransferase 20 U/L (15-37); BUN Creatinine Ratio 19.3 (10-20); Blood Urea Nitrogen 55 mg/dl (7-18); Calcium 9.1 mg/dl (8.5-10.1); Carbon Dioxide 20 mmol/L (21-32); Chloride 104 mmol/L (98-107); Creatinine Clr Calc Pharmacy 24.6 ml/min; Est GFR (African American) 24.3; Glucose 324 mg/dl (70-99); Potassium 3.8 mmol/L (3.5-5.1); Sodium 135 mmol/L (136-145)
--- NOTE | 2018-07-13 10:21 | CT Scan Report ---
CT lumbar spine wo con HISTORY: 72 years-old Male eval for trauma, leg weakness acute low back pain status post fall with l eft leg weakness COMPARISON: CT abdomen and pelvis of same day TECHNIQUE: Multiple axial CT images of the lumbar spine were obtained without the use of IV contrast. A dose lowering technique was used consistent with the principals of EBER. FINDINGS: Demineralized appearance of the bones. Severe disc space narrowing with posterior disc osteophyte com plex formations noted at-L4 and L4-L5. Severe facet arthropathy at these levels is also noted along w ith posterior annular disc bulging. No acute fracture or subluxation identified. Remote left L5 pars defect. No spondylolisthesis. Image sacrum and iliac bones appear intact. Moderate degenerative rasheed es of the SI joints. L1-L2: No significant central canal or foraminal narrowing. L2-L3: Spondylitic spurring with posterior annular disc bulge and moderate facet arthrosis with ligam entum flavum thickening. Mild central canal stenosis without significant foraminal narrowing. L3-L4: Posterior disc osteophyte complex formation with severe facet arthrosis and ligamentum flavum thickening. Findings cause moderate central canal with moderate left and mild to moderate right vicky inal narrowing. L4-L5: Posterior disc osteophyte complex formation with severe facet arthrosis and ligamentum flavum thickening. Moderate central canal stenosis with mild to moderate right and moderate left foraminal n arrowing. L5-S1: Circumferential annular disc bulge with severe facet arthrosis and ligamentum flavum thickenin g. No significant central canal or left foraminal narrowing. Mild right foraminal stenosis. No aortic aneurysm or adenopathy. Paraspinal tissues are unremarkable. IMPRESSION: 1. No acute fracture or subluxation of the lumbar spine. 2. Multilevel degenerative changes as above. The above report was generated using voice recognition software. It may contain grammatical, syntax o r spelling errors. Electronically signed by: John Vitale M.D. 07/13/2018 10:19 AM
[2018-07-13 10:24] LABS: Albumin Globulin Ratio 0.8 (0.9-2); Alkaline Phosphatase 164 U/L (45-117); Bilirubin,Total 0.4 mg/dl (0.2-1); Total Protein 8.8 gm/dl (6.4-8.2); Troponin I < 0.015 ng/ml (0-0.045)
[2018-07-13 10:31] LABS: Beta-Hydroxybutyrate 2.22 mg/dl (0.2-2.81)
--- NOTE | 2018-07-13 10:32 | CT Scan Report ---
ABDOMEN AND PELVIS CT WITHOUT CONTRAST CT DOSE: 1305.70 mGy.cm HISTORY: Acute left upper quadrant and left rib pain status post recent fall eval for trauma, Hit neena q. hx of renal insuf TECHNIQUE: Multiaxial CT images of the abdomen and pelvis were performed without contrast. A dose lo wering technique was utilized adhering to the principles of ALARA. COMPARISON STUDY: CT lumbar spine of same day FINDINGS: There is mild subsegmental bibasilar atelectasis. There is no pneumatosis or pneumoperitoneum. Modera te cardiomegaly with coronary arterial calcifications. Scattered calcified granulomata about the liver and spleen. 7 mm cystic focus about the pancreatic ne ck on image 140 series 5 indeterminate and may reflect a sidebranch IPMN. Mild generalized pancreatic atrophy. No pancreatic ductal dilation. Moderate thickening of the right adrenal gland. 1.7 cm left adrenal adenoma. Mild nonspecific bilateral perinephric stranding. Linear nonobstructing calculus of the interpolar right kidney. There is no ureteral calculi or obstructive uropathy. Mild prostamegaly. Urinary bladder is mildly distended. Small fat filled right inguinal hernia. Now prosthesis with lef t inferior hemipelvis pump device. Calcifications noted about the abdominal aorta. There is no adenop athy. Mild wall thickening about the distal esophagus. Moderate sized duodenal diverticulum. The study is m ildly motion degraded. No bowel obstruction. Extensive colonic diverticulosis. Wall thickening throug hout the sigmoid colon is likely secondary to chronic hypertrophy of the muscularis. Normal-appearing appendix. No ascites or mesenteric inflammation. Soft tissues are unremarkable. No retroperitoneal h ematoma. Degenerative changes of the spine, pelvis and hips. No acute displaced rib fracture identifi ed. Please IMPRESSION: 1. No acute intra-abdominal or intrapelvic abnormality identified. 2. No acute fracture. 3. Nonobstructing right nephrolithiasis. 4. Prior granulomatous disease. 5. Left adrenal adenoma. 6. Extensive colonic diverticulosis. Wall thickening of the sigmoid colon is likely secondary to hype rtrophy of the muscularis propria secondary to chronic diverticular disease. 7. Additional findings as above. Electronically signed by: John Vitale M.D. 07/13/2018 10:31 AM
--- NOTE | 2018-07-13 10:34 | XRay Report ---
XR chest 1V portable HISTORY: 72 years-old Male weakness acute weakness COMPARISON: CT abdomen and pelvis of same day, chest radiograph 11/28/2017 TECHNIQUE: Portable AP view of the chest FINDINGS: Cardiomediastinal and hilar silhouettes are within normal limits. Calcification of the thoracic aorti c arch. There is no pneumothorax, pleural effusion, focal airspace consolidation or overt pulmonary e demetris. Degenerative changes of the shoulders and spine. IMPRESSION: No acute process. The above report was generated using voice recognition software. It may contain grammatical, syntax o r spelling errors. Electronically signed by: John Vitale M.D. 07/13/2018 10:32 AM
[2018-07-13] MEDS ORDERED: INSULIN HUMAN REGULAR PER UNIT 3 UNITS in SYRINGE 0 ML SC STA (10:55)
[2018-07-13] MEDS ORDERED: NovoLIN-R INSULIN PER UNIT CHARGE ONE (11:00)
--- NOTE | 2018-07-13 12:42 | History & Physical Report ---
Date of Service July 13, 2018 Assessment & Plan (1) Weakness: Pt presented with c/o bilateral leg weakness with walking x 2 days. Had missed a step on step stool 3 days ago and hit anterior left ribs on car and slight "twinge sensation" to left lower back. Denies THAKKAR, dizziness, neck pain, In ER pt afebrile, vitals stable. No leukocytosis, Hgb: 11.2 (baseline 9-10), glucose: 324, Na corrected at 139, no other significant electrolyte abnormality.TSH: 1.4, negative troponin. UA unremarkable for infection CT Head: No acute intracranial abnormality. CT Lumbar spine: No acute fracture or subluxation of the lumbar spine. Multilevel degenerative changes CXR: No acute process. DDX: dehydration, hyperglycemia, lumbar etiology, stroke -gentle IVF -MRI brain to r/o stroke -MRI lumbar spine to r/o spine etiology causing LE weakness -PT/OT eval -CBC, BMP in am (2) Hyperglycemia: (3) Diabetes mellitus, type II: A1c: 6.5 on 05/14/18 Pt not on any diabetes medications Glucose: 324, beta-hydroxybutyric acid: 2.2 -Was given 3 units insulin R in ER -Repeat glucose: 192 -monitor BSGs -Novolog sliding scale (4) HTN (hypertension): Stable -continue amlodipine, carvedilol, hydralazine -will hold torsemide and re-evaluate tomorrow (5) Hyperlipidemia: -continue atorvastatin (6) Chronic renal failure, stage 4 (severe): Cr: 2.85. Baseline Cr 2.8 -monitor renal functions -avoid nephrotoxic agents when possible (7) Depression: -continue paroxetine (8) Anemia: Chronic anemia. Hgb: 11.2. Baseline Hgb: 9-10. Denies melena, hematochezia -monitor H&H -continue ferrous sulfate DVT Prophylaxis -Heparin SQ Full Code as per discussion with pt Follows with Dr Fiona Novoa for routine care Pt was seen with Dr Holley. See addendum History of Present Illness Chief Complaint: weakness Primary Care Provider: Brooklyn Carpenter MD, PhD Pt is 72 y/o M with PMH HTN, HLD, DM II, CKD IV, h/o hyperkalemia with LUCHO/ARB use presented to ER with complaint of weakness x 2 days. Patient states yesterday woke up and try to get out of bed and noticed bilateral leg weakness and difficulty standing and walking secondary to leg weakness. He states this morning when he woke up his bilateral arms felt a little weak however that resolved after getting up out of bed. Patient states 2 days ago was working on his jeep and standing on step stool and stepped off and missed a step patient states hit his left ribs on the car frame. States he has a small bruise to his ribs however not having any rib or chest or abdominal pain. Patient states when he did this he felt like he "tweaked" his left lower back. States throughout the day did not have any back pain, and since his family noticed pulling sensation to left lower back with raising of his left leg however denies significant pain. Patient denies any pain to legs. He reports chronic numbness/tingling sensation to bilateral feet which he thinks might be a little increased. Denies any other leg paresthesias. Denies history of back problems or injury in past. Denies any loss of control of bowel or bladder, saddle p aresthesias. He reports that he has been eating and drinking normally. Has not checked his blood sugars for the past couple of days usually checks couple times a week and reports fasting BSG of 120-130. Patient is not currently on any diabetes medications. States for the past 1 to 2 months has had some postnasal drip and occasional cough. He denies any increased cough, wheezing, SOB. Denies fever/chills, diaphoresis, N/V/D/C, THAKKAR, dizziness, syncope, vision changes, neck pain, CP, SOB, orthopnea, palpitations, sore throat, choking, otalgia, abdominal pain, extremity edema, rashes, urinary symptoms, melena, hematochezia. Denies any other injury or trauma. Allergies Allergy/AdvReac Type Severity Reaction Status Date / Time sitagliptin Allergy Unknown LIGHTHEADEDNESS Verified 11/27/17 17:46 AND PAINS IN UPPER STOMACH Home Medications Home Medications Medication Instructions Recorded Confirmed Type amlodipine [Norvasc] 10 mg PO QAM 11/27/17 07/13/18 History aspirin [Aspirin Low Dose] 81 mg PO QAM 11/27/17 07/13/18 History atorvastatin [Lipitor] 20 mg PO DAILY 11/27/17 07/13/18 History carvedilol [Coreg] 12.5 mg PO BID 11/27/17 07/13/18 History cholecalciferol (vitamin D3) 3,000 unit PO QAM 11/27/17 07/13/18 History [Vitamin D3] ferrous sulfate 325 mg PO BID 11/27/17 07/13/18 History hydralazine 100 mg PO TID 11/27/17 07/13/18 History paroxetine HCl [Paxil] 20 mg PO DAILY 11/27/17 07/13/18 History torsemide 10 mg PO DAILY 07/13/18 07/13/18 History Past Med/Surg History Medical History Diabetes mellitus, type II (Chronic) Chronic renal failure, stage 4 (severe) (Chronic) HTN (hypertension) (Chronic) Depression (Chronic) Hyperlipidemia (Chronic) ANI (acute kidney injury) (Resolved) Anemia (Chronic) Hgb 6.8 on admission s/p 2 units PRBCs 11/2017 Anxiety (Chronic) Surgical History History of esophagogastroduodenoscopy (EGD) (Chronic) 11/28/2017: esophagitis, +H Pylori. Performed at [facility] History of cataract surgery (Chronic) S/P colonoscopy (Chronic) Social History Preferred Language: E[place] Communication Ability: Effective Poultry Breeder Required: No Beliefs That Will Affect Care: None Current Living Situation: Alone Other Information That Helps Us Care for You: No Feels Safe at Home: Yes Safety Concerns: Feels Safe At This Time Smoking Status: Former smoker Cigarettes Per Day: 2004 Do You Dip or Chew Tobacco: No Second Hand Exposure: No Tobacco Cessation Education Requested by Patient: No Hx Alcohol Use: Yes Alcohol type: beer Alcohol Intake Frequency Comment: 3-4 beers a week Hx Substance Use: No Review of Systems Review of Systems: All systems reviewed & are unremarkable except as noted in HPI & below Physical Exam Physical Exam: General: no distress, WDWN Head: normocephalic, atraumatic Eyes: PERRL, EOM's intact, conjunctiva non-injected, anicteric ENT: normal inspection external ears, nose, mucous membranes moist Neck: supple, trachea midline, non-tender Lungs: clear, no respiratory distress, no wheezing/rhonchi/rales CV: RRR, no murmur, no pretibial edema; left anterior lower ribs with ecchymosis without any tenderness to palpation Abd: normal BS, soft, non-tender Back: no spinous process tenderness to palpation, no paraspinous tenderness to palpation, ROM back intact without tenderness. Left straight leg raise to 45 degrees with reported mild tenderness to lower back, Right straight leg raise to 45 degrees negative. Ext: no cyanosis, no calf tenderness, distal pulses intact, brisk capillary refill, sensation to light touch intact. strength 5/5 throughout upper and lower extremities with testing while pt supine in bed Neuro: A&O x 3, no focal deficits noted, normal affect Skin: warm, dry Results & Data Vital Signs (Past 12 Hours) Vital Signs Temp Pulse Pulse Resp BP BP Pulse Ox 07/13/18 10:58 79 20 173/88 H 98 07/13/18 09:14 100 07/13/18 08:57 36.3 C L 87 20 169/73 H 100 Laboratory Results Short CBC 07/13/18 Range/Units 09:13 WBC 10.24 (4.8-10.8) K/uL Hgb 11.2 L (14.0-18.0) g/dL Hct 33.0 L (42-52) % Plt Count 208 (130-400) K/uL BMP 07/13/18 09:13 Sodium 135 L Potassium 3.8 Chloride 104 Carbon Dioxide 20 L BUN 55 H Creatinine 2.85 H Glucose 324 H* Calcium 9.1 Cardiac Enzymes 07/13/18 07/13/18 Range/Units 09:13 09:13 Troponin I < 0.015 Cancelled (0-0.045) ng/ml Liver Function 07/13/18 Range/Units 09:13 Total Bilirubin 0.4 (0.2-1) mg/dl AST 20 (15-37) U/L ALT 21 (12-78) U/L Alkaline Phosphatase 164 H (45-117) U/L Albumin 3.8 (3.4-5.0) gm/dl Urine 07/13/18 Range/Units 09:55 Urine Color Yellow Urine Appearance Clear (Clear) Urine pH 6.5 (4.5-7.5) Ur Specific [place] 1.013 (1.000-1.030) Urine Protein 2+ H (Negative) Urine Glucose (UA) 1+ H (Negative) Diagnostic Findings CXR: IMPRESSION: No acute process. CT HEAD: IMPRESSION: No acute intracranial abnormality. CT LUMBAR SPINE: IMPRESSION: 1. No acute fracture or subluxation of the lumbar spine. 2. Multilevel degenerative changes as above. CT ABD/PELVIS: IMPRESSION: 1. No acute intra-abdominal or intrapelvic abnormality identified. 2. No acute fracture. 3. Nonobstructing right nephrolithiasis. 4. Prior granulomatous disease. 5. Left adrenal adenoma. 6. Extensive colonic diverticulosis. Wall thickening of the sigmoid colon is likely secondary to hypertrophy of the muscularis propria secondary to chronic diverticular disease. 7. Additional findings as above Supervising Physician Co-Signing Physician Notes Patient is a 72-year-old male with history of diabetes, CKD 4 and other problems presents with history of bilateral lower extremity weakness, difficulty ambulation secondary to weakness. Reports chronic numbness and tingling in feet which is slightly worse in since 2 days. Denies any head trauma, loss of consciousness, change in vision, speech problems, dizziness, bowel and bladder incontinence, vertigo. Please review HPI for complete details of presentation. CT head showed no acute abnormality. Lumbar CT showed no acute fracture or subluxation of the lumbar spine. Showed multilevel degenerative changes. He was also noted to have elevated blood sugar levels. Currently he is not on any diabetic medications. Previously on metformin which was discontinued years ago secondary to CKD. TSH is normal. On exam patient is moderately built and nourished, no apparent distress, lungs are clear to auscultation, S1-S2, no murmur, abdomen soft nontender, mild left lower extremity weakness noted. No other gross focal neurological deficits noted. No pedal edema. Patient will need further work-up for lower extremity weakness. Plan to get MRI head, spine. Continue aspirin and statin. Check vitamin B12 levels. PT OT ordered. Consider Neurology/Orthopedics based on MRI findings. Gentle IV fluids. Control blood sugar levels with insulin sliding scale. DD: To rule out stroke, lumbar disc disease/spinal stenosis, neuropathy. Monitor renal function. May need to be started on oral diabetic medications upon discharge. I personally reviewed the record. Patient is interviewed and examined at bedside. Patient's care is coordinated with Autumn Chun PA-C. Please refer to the documentation above for details of patient's presentation and for discussion of other issues.
[2018-07-13] MEDS ORDERED: DEXTROSE 50% 50 ML SYRINGE IV PRN (14:42)
[2018-07-13] MEDS ORDERED: ACETAMINOPHEN 325 MG TAB PO PRN (14:42)
[2018-07-13] MEDS ORDERED: CARBOHYDRATES FOR HYPOGLYCEMIA PO PRN (14:42)
[2018-07-13] MEDS ORDERED: GLUCAGON FOR INJ 1 MG VIAL SQ PRN (14:42)
[2018-07-13] MEDS ORDERED: GLUCOSE 10 TABS/TUBE PO PRN (14:42)
[2018-07-13] MEDS ORDERED: GLUCOSE 40% GEL 15 GM TUBE PO PRN (14:42)
[2018-07-13] MEDS ORDERED: LORazepam 0.5 MG TAB PO SCH (15:00)
[2018-07-13] MEDS: HydrALAZINE TAB 50 MG TAB PO SCH ×2 (15:20→20:02)
[2018-07-13] MEDS: SODIUM CHLORIDE 0.9% 1000ML 1,000 ML IV SCH (15:21)
--- NOTE | 2018-07-13 16:28 | Magnetic Resonance Report ---
MR brain wo con HISTORY: 72 years-old Male bilateral leg weakness acute bilateral leg weakness COMPARISON: CT head of same day TECHNIQUE: Multiplanar multisequence MRI of the brain was obtained without the use of IV contrast. FINDINGS: Large [id number] it disaster recovery manager localizer images demonstrate no gross extracranial abnormality. There is no restricted diffusion to suggest acute or subacute infarction. Midline structures including the corpu s callosum, brainstem, optic chiasm, pituitary and pineal glands appear unremarkable in sagittal T1 s eries. No cerebellar tonsillar herniation. Degenerative changes are noted about the imaged cervical s pine. There is no acute intracranial hemorrhage, midline shift, abnormal extra-axial collections, hydroceph alus or intracranial mass identified. Study is mildly motion degraded. Age-related involutional rasheed es. Mild to moderate patchy white matter T2/FLAIR hyperintensities are noted suggestive of chronic mi crovascular ischemic changes. Major flow voids at the level of the skull base appear patent. Mastoid air cells are clear. Mild mucosal thickening of the paranasal sinuses. Prior bilateral cataract repai r. Skull and soft tissues are within normal limits. IMPRESSION: 1. No acute intracranial abnormality. 2. Age-related involutional changes with mild to moderate chronic microvascular ischemic disease. The above report was generated using voice recognition software. It may contain grammatical, syntax o r spelling errors. Electronically signed by: John Vitale M.D. 07/13/2018 4:26 PM
--- NOTE | 2018-07-13 16:57 | Magnetic Resonance Report ---
MR lumbar spine wo con CLINICAL HISTORY: 72 years-old Male with bilateral leg weakness. Acute bilateral leg weakness COMPARISON: CT lumbar spine of same day TECHNIQUE: Multiplanar, multi sequence MRI of the lumbar spine was performed without intravenous cont rast. FINDINGS: Large [id number] gill tender localizer images demonstrate no gross extraspinal abnormality. No aortic an eurysm or adenopathy. Conus medullaris terminates at T12-L1. Signal within the imaged thoracic spinal cord is unremarkable. Cauda equina also appear to be within normal limits. Study is mildly motion de graded. There is moderate marrow edema at the inferior endplate L1 posteriorly with an acute appearin g Schmorl's node. Bone marrow signal is otherwise unremarkable. Moderate soft tissue edema tracks arteimo ng the left neuroforamen at L1-L2. 4 mm synovial cyst noted on the right posterior to the L5-S1 facet s. No acute fracture or subluxation. Moderate disc space narrowing with spondylitic spurring and posterior annular disc bulge with moderat e facet arthrosis at T10-T11 this results in mild to moderate central canal stenosis with mild left f oraminal narrowing as seen on the sagittal images alone. T12-L1: Moderate disc space narrowing with spondylitic spurring, posterior annular disc bulge with m oderate facet arthrosis. No central canal or foraminal narrowing. L1-L2: Moderate disc space narrowing with spondylitic spurring, circumferential annular disc bulge, ligamentum flavum thickening with severe facet arthrosis. No significant central canal or foraminal n arrowing. L2-L3: Moderate disc space narrowing with posterior annular disc bulge, spondylitic spurring, ligame ntum flavum thickening and severe facet arthrosis with small bilateral facet effusions. Mild central canal stenosis without foraminal narrowing. L3-L4: Severe disc space narrowing with circumferential annular disc bulge, spondylitic spurring, ad vanced facet arthrosis with small right facet effusion and ligamentum flavum thickening. Small automotive center manager ior annular fissure. Moderate central canal stenosis with mild to moderate right and moderate left fo raminal narrowing. L4-L5: Severe disc space narrowing with circumferential annular disc bulge, spondylitic spurring, li gamentum flavum thickening, right greater than left and advanced facet arthrosis. Small posterior savage ular fissure. Severe lateral recess narrowing bilaterally. Findings cause moderate to severe central canal stenosis with moderate to severe right and moderate left foraminal narrowing. L5-S1: Mild disc space narrowing with 2 mm anterolisthesis L5 on S1, likely degenerative. Mild spond ylitic spurring with circumferential annular disc bulge, severe facet arthrosis with ligamentum flavu m thickening. 3 mm synovial cyst is noted adjacent to the right ligamentum flavum. Central canal is p atent. Mild right foraminal stenosis. The left foramen is patent. IMPRESSION: 1. Moderate bone marrow edema about the left posterior lateral aspect of the L1 vertebral body associ ated with acute appearing Schmorl's node. Moderate soft tissue edema tracks along the left neuroforam en. No acute compression deformity. 2. At L3-L4 there is moderate central canal, mild to moderate right and moderate left foraminal narro wing. 3. At L4-L5 there is moderate to severe central canal with moderate to severe right and moderate left foraminal narrowing. 4. Additional findings as above. The above report was generated using voice recognition software. It may contain grammatical, syntax o r spelling errors. Electronically signed by: John Vitale M.D. 07/13/2018 4:56 PM
[2018-07-13] MEDS: INSULIN ASPART 100 UNITS/ML 3 ML PEN SC SCH ×2 (17:13→20:00)
[2018-07-13] MEDS ORDERED: PHARMACY GLYCEMIC MGMT CONSULT PRN (18:12)
[2018-07-13] MEDS: DEXAMETHASONE SOD PHOSPHATE 4 MG in SYRINGE 0 ML IV SCH (18:32)
--- NOTE | 2018-07-13 19:10 | Pharmacy Report ---
Pharmacy Glycemic Short Note 2 - Date of Service July 13, 2018 - Glycemic Short BSG Results (Last 24 hours): 07/13/18 07/13/18 07/13/18 09:13 13:15 17:02 Glucose 324 H* POC Glucose 192 H 246 H OUTPATIENT ANTIDIABETIC REGIMEN: * No diabetic meds ASSESSMENT: * Ordered DXM 4mg IV q8h x 4 doses starting 07/12/18 1800. * Ordered A1c for 07/14 AM PLAN FOR INPATIENT GLYCEMIC CONTROL: * Basal insulin * Lantus 20 units SQ x 1 now, pharmacy glycemic service to reassess 07/14 AM * Bolus insulin * NovoLog per scale ACHS & 0000/0400 * Goal Range: Low 120 mg/dL - High 160 mg/dL * "Tightened" Correction Factor: 20 mg/dL/unit * "Added" Nutritional / Prandial insulin per carb ratio of 1 unit per 8 grams CHO consumed * Please note that the plan above was derived based on current level of insulin resistance and hospital stress. These recommendations are appropriate for inpatient admission only. Plan of care upon discharge will need to be reassessed to avoid potential outpatient hypo/hyperglycemia.
[2018-07-13] MEDS ORDERED: INSULIN GLARGINE SOLOSTAR 100 UNITS/ML 3 ML PEN SC ONE (19:30)
[2018-07-13] MEDS: FERROUS SULFATE 325 MG TAB PO SCH (20:02)
[2018-07-13] MEDS: CARVEDILOL 12.5 MG TAB PO SCH (20:05)
[2018-07-14] MEDS: INSULIN ASPART 100 UNITS/ML 3 ML PEN SC SCH ×6 (00:21→20:52)
[2018-07-14] MEDS: DEXAMETHASONE SOD PHOSPHATE 4 MG in SYRINGE 0 ML IV SCH ×3 (03:10→18:09)
[2018-07-14] MEDS: SODIUM CHLORIDE 0.9% 1000ML 1,000 ML IV SCH (04:50)
[2018-07-14 06:37] LABS: Hematocrit (blood only) 31.4 % (42-52); Hemoglobin 10.8 g/dL (14.0-18.0); Mean Corpuscular Hgb Conc 34.4 g/dL (32-36); Mean Corpuscular Volume 88.2 fL (80-100); Mean Platelet Volume 10.5 fL (7.4-10.4); Platelet Count 197 K/uL (130-400); RDW Coefficient of Variation 12.9 % (11.5-14.5); RDW Standard Deviation 41.7 fL (36.4-46.3); Red Blood Count 3.56 M/uL (4.7-6.1); White Blood Count 11.98 K/uL (4.8-10.8)
[2018-07-14 07:06] LABS: Est GFR (African American) 23.6; Est GFR (Non-African American) 20.3
[2018-07-14 07:10] LABS: Estimated Average Glucose 154 mg/dl
[2018-07-14] MEDS: CHOLECALCIFEROL 1,000 UNITS TAB PO SCH (08:27)
[2018-07-14] MEDS: AMLODIPINE BESYLATE 5 MG TAB PO SCH (08:27)
[2018-07-14] MEDS: CARVEDILOL 12.5 MG TAB PO SCH ×2 (08:27→20:49)
[2018-07-14] MEDS: ATORVASTATIN 20 MG TAB PO SCH (08:27)
[2018-07-14] MEDS: PARoxetine HCl 20 MG TAB PO SCH (08:28)
[2018-07-14] MEDS: ASPIRIN 81 MG ECTAB PO SCH (08:28)
[2018-07-14] MEDS: HydrALAZINE TAB 50 MG TAB PO SCH ×3 (08:28→20:50)
[2018-07-14] MEDS: FERROUS SULFATE 325 MG TAB PO SCH ×2 (08:28→20:49)
[2018-07-14] MEDS ORDERED: NovoLIN-N (NPH) PER UNIT CHARGE SQ STA (09:13)
--- NOTE | 2018-07-14 14:33 | Neurology Consultation ---
Date of Consultation July 14, 2018 Assessment & Plan (1) Ambulatory dysfunction: 1. lower extremities weakness L>R -more proximal weakness bilaterally 2. left >right UE weakness- not related to MRI 3. orthopedic- consulted for input 4. labs- sed rate, CRP, CK, aldolase, spep 5. LP - if labs are unrevealing 6. LE sensory loss bilaterally further recommendations to follow Supervising Physician Co-Signing Physician Notes I have seen and discussed above patient with Dr Vadim Phillips. Patient was seen and examined this afternoon. No family at bedside. Patient provided the histry. He reports acute onset weakness which he noted Saturday morning when he woke. He reports difficulty walking and hard time holding arms above his head. He denies pain or numbness. He denies speech difficulty or diplopia. Denies SOB. He denies any significant trauma. Denies back pain. He reports paresthesias in his feet which are chronic. He has a history of diabetes which he states is controlled with diet. HA1c 7. On examine he is awake and alert. Comprehension intact. He is able to sit up right on bed. EOMI. Face symmetric. tongue midline. Absent ankle and knee jerks. Right biceps reflex is 2+. Absent on the left or attenuated. He is unable to lift both arm above his head and his signficiant shoulder abduction weakness, 3- /5. In both legs he has hip flexion weakness with difficulty against gravity 3/5 right, 3-/5 on the left. He also had bilateral knree extension and ankle dorsiflexion weakness. Position sense is impaired in his feet. He has no sensory neglect in the legs and intact to light touch. CK is Normal which would suggest against an inflammatory myopathy. CRP and ESR mildly elevated. Proximal weakness can bee seen in early stages of GBS and in motor neuropathies for amyloidosis or porphria. Man in a barrel syndrome can be caused by bilateral watershed infracts. MRI brain reviewed and negative for acute ischemic stroke. A central cervical spinal cord lesion can produce similar pattern of weakness but there is usually loss of pain and temperature. Recommend we obtain an MRI of the cervical spine. ordered. Will check for anti-acetylcholine receptor antibody and Lyme. Ordered. Recommend IR consult for LP for evaluation of elevated CSF protein. History of Present Illness Reason for Consultation: b/l lower ext weakness, L>R Requesting Physician: Xander Holley MD Attending Physician: Xander Holley MD History of Present Illness Galen is a 72 year old male with PMH - HTN, HLD, DM II, CKD IV, h/o hyperkalemia with LUCHO/ARB use presented to ER with complaint of weakness x 2 days. He woke up and try to get out of bed and noticed bilateral leg weakness and difficulty standing and walking secondary to leg weakness and then had some arm weakness. 2 days prior he was working on his jeep and standing on step stool and stepped off and missed a step and hit his left ribs on the car frame. he is not having any rib or chest or abdominal pain. He thinks he "tweaked" his left lower back. He had chronic numbness/tingling sensation to bilateral feet which he thinks might be a little increased. He reports that he has been eating and drinking normally no medication changes. He also states he has some chronic neck pain which he thinks is worse than prior to the leg weakness. denies CP, SOB, abdominal pain, vision change, N, V, fever chills night sweats, increase one sided numbness tingling, +left sided weakness, neck pain, lower back pain Allergies Allergy/AdvReac Type Severity Reaction Status Date / Time sitagliptin Allergy Unknown LIGHTHEADEDNESS Verified 11/27/17 17:46 AND PAINS IN UPPER STOMACH Home Medications Home Medications Medication Instructions Recorded Confirmed Type amlodipine [Norvasc] 10 mg PO QAM 11/27/17 07/13/18 History aspirin [Aspirin Low Dose] 81 mg PO QAM 11/27/17 07/13/18 History atorvastatin [Lipitor] 20 mg PO DAILY 11/27/17 07/13/18 History carvedilol [Coreg] 12.5 mg PO BID 11/27/17 07/13/18 History cholecalciferol (vitamin D3) 3,000 unit PO QAM 11/27/17 07/13/18 History [Vitamin D3] ferrous sulfate 325 mg PO BID 11/27/17 07/13/18 History hydralazine 100 mg PO TID 11/27/17 07/13/18 History paroxetine HCl [Paxil] 20 mg PO DAILY 11/27/17 07/13/18 History torsemide 10 mg PO DAILY 07/13/18 07/13/18 History Patient History Medical History Diabetes mellitus, type II (Chronic) Chronic renal failure, stage 4 (severe) (Chronic) HTN (hypertension) (Chronic) Depression (Chronic) Hyperlipidemia (Chronic) ANI (acute kidney injury) (Resolved) Anemia (Chronic) Hgb 6.8 on admission s/p 2 units PRBCs 11/2017 Anxiety (Chronic) Surgical History History of esophagogastroduodenoscopy (EGD) (Chronic) 11/28/2017: esophagitis, +H Pylori. Performed at [facility] History of cataract surgery (Chronic) S/P colonoscopy (Chronic) Social History Preferred Language: Italian Communication Ability: Effective Trial Paralegal Required: No Beliefs That Will Affect Care: None Current Living Situation: Alone Other Information That Helps Us Care for You: No Feels Safe at Home: Yes Safety Concerns: Feels Safe At This Time Smoking Status: Former smoker Cigarettes Per Day: 2004 Do You Dip or Chew Tobacco: No Second Hand Exposure: No Tobacco Cessation Education Requested by Patient: No Hx Alcohol Use: Yes Alcohol type: beer Alcohol Intake Frequency Comment: 3-4 beers a week Hx Substance Use: No Physical Exam Physical Exam: Physical Exam: Constitutional: appearance over nourished, healthy and normal Ears, Nose, Mouth and Throat: mucous membranes moist, no injection and skin normal, eyes normal Cardiovascular: normal S-1 and S-2 and regular rate and rhythm Respiratory: clear to auscultation (CTA) and no rales, rhonchi or wheeze Musculoskeletal: no peripheral edema and good distal pulses Skin: some areas of ecchymosis bilaterally LE Eyes: extraocular muscles intact (EOMI) and pupils equal, round and reactive to light (PERRL) NEUROLOGIC EXAMINATION: Mental status: Alert and interactive Oriented [facility], 2019, lives alone Oriented to person Speech fluent with no evidence of aphasia Cranial Nerves smile eye brow raise tongue midline Reflexes: Deep tendon reflexes were symmetrical decreased bilaterally no up going toes Sensory: decrease sensation to vibration to upper calf bilaterally Coordination: finger to nose bilaterally no bi pass, amezquita to heel dysmetric left Gait/Stance: Posture normal sitting up in bed Motor: Negative for pronator drift of out stretched arms with eyes closed. 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/5, left biceps triceps hand inhalation therapy aides teacher deltoids 3/5, hip flex right 3/5, plantar flex ext 5/5, left hip flex 3/5 plantar flex ext 3/5 Results & Data Vital Signs (Past 12 Hours) Vital Signs Temp Pulse Resp BP Pulse Ox 07/14/18 14:03 84 157/87 H 07/14/18 11:04 99 07/14/18 07:19 36.4 C L 92 H 16 165/83 H 97 Laboratory Results Abnormal lab results 07/13/18 07/13/18 07/14/18 Range/Units 17:02 19:42 00:09 WBC (4.8-10.8) K/uL RBC (4.7-6.1) M/uL Hgb (14.0-18.0) g/dL Hct (42-52) % MPV (7.4-10.4) fL BUN (7-18) mg/dl Creatinine (0.6-1.4) mg/dl Glucose (70-99) mg/dl POC Glucose 246 H 277 H 162 H (70-99) Hemoglobin A1c (4.5-5.6) % Vitamin B12 (211-911) pg/ml 07/14/18 07/14/18 07/14/18 Range/Units 04:24 05:41 05:41 WBC 11.98 H (4.8-10.8) K/uL RBC 3.56 L (4.7-6.1) M/uL Hgb 10.8 L (14.0-18.0) g/dL Hct 31.4 L (42-52) % MPV 10.5 H (7.4-10.4) fL BUN 58 H (7-18) mg/dl Creatinine 2.92 H (0.6-1.4) mg/dl Glucose 194 H (70-99) mg/dl POC Glucose 195 H (70-99) Hemoglobin A1c (4.5-5.6) % Vitamin B12 (211-911) pg/ml 07/14/18 07/14/18 07/14/18 Range/Units 05:41 05:41 07:29 WBC (4.8-10.8) K/uL RBC (4.7-6.1) M/uL Hgb (14.0-18.0) g/dL Hct (42-52) % MPV (7.4-10.4) fL BUN (7-18) mg/dl Creatinine (0.6-1.4) mg/dl Glucose (70-99) mg/dl POC Glucose 199 H (70-99) Hemoglobin A1c 7.0 H (4.5-5.6) % Vitamin B12 1798 H (211-911) pg/ml 07/14/18 Range/Units 11:36 WBC (4.8-10.8) K/uL RBC (4.7-6.1) M/uL Hgb (14.0-18.0) g/dL Hct (42-52) % MPV (7.4-10.4) fL BUN (7-18) mg/dl Creatinine (0.6-1.4) mg/dl Glucose (70-99) mg/dl POC Glucose 179 H (70-99) Hemoglobin A1c (4.5-5.6) % Vitamin B12 (211-911) pg/ml Diagnostic Findings CT head- No acute intracranial abnormality. L spine CT - Demineralized appearance of the bones. Severe disc space narrowing with posterior disc osteophyte complex formations noted at-L4 and L4-L5. Severe facet arthropathy at these levels is also noted along with posterior annular disc bulging. No acute fracture or subluxation identified. Remote left L5 pars defect. No spondylolisthesis. Image sacrum and iliac bones appear intact. Moderate degenerative changes of the SI joints. L1-L2: No significant central canal or foraminal narrowing. L2-L3: Spondylitic spurring with posterior annular disc bulge and moderate facet arthrosis with ligamentum flavum thickening. Mild central canal stenosis without significant foraminal narrowing. L3-L4: Posterior disc osteophyte complex formation with severe facet arthrosis and ligamentum flavum thickening. Findings cause moderate central canal with moderate left and mild to moderate right foraminal narrowing. L4-L5: Posterior disc osteophyte complex formation with severe facet arthrosis and ligamentum flavum thickening. Moderate central canal stenosis with mild to moderate right and moderate left foraminal narrowing. L5-S1: Circumferential annular disc bulge with severe facet arthrosis and ligamentum flavum thickening. No significant central canal or left foraminal narrowing. Mild right foraminal stenosis. No aortic aneurysm or adenopathy. Paraspinal tissues are unremarkable. MRI brain- No acute intracranial abnormality. Age-related involutional changes with mild to moderate chronic microvascular ischemic disease. MRI lumbar spine-Moderate bone marrow edema about the left posterior lateral aspect of the L1 vertebral body associated with acute appearing Schmorl's node. Moderate soft tissue edema tracks along the left neuroforamen. No acute compre ssion deformity. At L3-L4 there is moderate central canal, mild to moderate right and moderate left foraminal narrowing. At L4-L5 there is moderate to severe central canal with moderate to severe right and moderate left foraminal narrowing.
--- NOTE | 2018-07-14 16:37 | Hospitalist Progress Note ---
Date of Service July 14, 2018 Assessment & Plan (1) Weakness: B/L LE weakness Ambulatory Dysfunction TSH: Normal Vitamin B 12:1798 --MRI Brain: No acute intracranial abnormality. --Lumbar MRI:Moderate bone marrow edema about the left posterior lateral aspect of the L1 vertebral body associated with acute appearing Schmorl's node. Moderate soft tissue edema tracks along the left neuroforamen. No acute compression deformity. L3-L4 there is moderate central canal, mild to moderate right and moderate left foraminal narrowing. L4-L5 there is moderate to severe central canal with moderate to severe right and moderate left foraminal narrowing. --ESR, CRP, CK, aldolase, SPEP pending May need L.P if blood work negative as per Neurology Appreciate Orthopedics Input Received IV Decadron for moderate bone marrow edema Appreciate Neurology Input PT/OT Leukocytosis Likely due to Decadron Monitor Dehydration Received IV fluids (2) Hyperglycemia: (3) Diabetes mellitus, type II: A1c: 6.5 on 05/14/18 Pt not on any diabetes medications Glucose: 324, beta-hydroxybutyric acid: 2.2 on presentation Previously on Metformin--DCed due to CKD Monitor BGs BGs elevated due to Decadron Continue Novolog sliding scale (4) HTN (hypertension): Stable continue amlodipine, carvedilol, hydralazine Resume torsemide as able (5) Hyperlipidemia: continue atorvastatin (6) Chronic renal failure, stage 4 (severe): Baseline Cr 2.8 monitor renal functions Avoid nephrotoxic agents when possible (7) Depression: continue paroxetine (8) Anemia: Chronic anemia Baseline Hgb: 9-10. Denies bleeding issues Monitor H&H Continue ferrous sulfate DVT Px: Heparin SQ Code Status: Full Code Disposition: Follows with Dr Fiona Novoa for routine care Subjective Patient is seen and examined at bedside Continues to have B/L LE weakness and balance issues with ambulation Discussed with Ortho PA today Plan to involve Neurology for Input Denies Chest Pain, Sob, Dizziness Offers no other complaints Review of Systems Review of Systems: All systems reviewed & are unremarkable except as noted in HPI & below Physical Exam Physical Exam: Physical Exam: Vitals signs as noted above General Appearance:Moderately built and nourished, no apparent distress Head: normocephalic, Atraumatic Eyes: normal inspection, EOMI Neck: supple, Trachea midline Respiratory/Chest: Normal breath sounds, CTA Cardiovascular: S1, S2, No murmur Abdomen/GI:Soft, Non tender, Bowel sounds present Extremities/Musculoskelatal:normal inspection, B/L LE weakness L> R, decreased sensation Neurologic/Psych:AAOX3, grossly no focal neurological deficits Skin: normal color, warm Results & Data Vital Signs (Past 12 Hours) Vital Signs Temp Pulse Resp BP Pulse Ox 07/14/18 14:03 84 157/87 H 07/14/18 11:04 99 07/14/18 07:19 36.4 C L 92 H 16 165/83 H 97 Laboratory Results Short CBC 07/14/18 Range/Units 05:41 WBC 11.98 H (4.8-10.8) K/uL Hgb 10.8 L (14.0-18.0) g/dL Hct 31.4 L (42-52) % Plt Count 197 (130-400) K/uL BMP 07/14/18 05:41 Sodium 136 Potassium 4.0 Chloride 106 Carbon Dioxide 22 BUN 58 H Creatinine 2.92 H Glucose 194 H Calcium 9.0 (1) Diabetes mellitus, type II Diabetes mellitus complication status: without complication Diabetes mellitus rat exterminator insulin use: unspecified rat exterminator insulin use status Qualified Code(s): E11.9 - Type 2 diabetes mellitus without complications
[2018-07-14 16:54] LABS: C Reactive Protein 0.37 mg/dl (0-0.29)
[2018-07-14 17:42] LABS: INR 1.1 (0.9-1.1); Prothrombin Time 11.2 Seconds (9.0-12.0)
[2018-07-14] MEDS ORDERED: INSULIN HUMAN NPH SC ONE ×2 (18:30)
[2018-07-14] MEDS: HEPARIN SOD 5,000 UNIT/0.5 ML VIAL SQ SCH (20:51)
[2018-07-14 22:26] LABS: Lyme Ab IgG w/WB Rflx Negative (Negative); Lyme Ab IgM w/WB Rflx Negative (Negative)
--- OUTSIDE RECORDS SUMMARY | 2018-07-14 22:42 | External Medical Summary | Continuity of Care Document ---
:1945 Author Name César Campo Address Unavailable Unavailable , Care Team Providers Name Role Phone Kamlesh Pierce M.D. Unavailable [email or web address], [email or web address] Unavailable Unavailable Problems Active medical history not documented Allergies and Adverse Reactions Allergy history not documented Medications Medications not documented Procedures Procedures not documented Immunizations Immunizations not documented Plan of Treatment Planned Observations Planned Goals not documented Results No Known Results Results not documented
[2018-07-15 06:25] LABS: BUN Creatinine Ratio 23.6 (10-20); Calcium 8.9 mg/dl (8.5-10.1); Creatinine Clr Calc Pharmacy 24.7 ml/min; Est GFR (African American) 24.4; Potassium 4.2 mmol/L (3.5-5.1)
--- NOTE | 2018-07-15 06:47 | Magnetic Resonance Report ---
MRI OF THE CERVICAL SPINE WITHOUT CONTRAST CLINICAL HISTORY: proximal upper and lower weakness COMPARISON: None. TECHNIQUE: Utilizing a 1.5 Ira magnet and dedicated coil, multiplanar, multiecho imaging of the ce rvical spine was performed without IV contrast. FINDINGS: There is straightening of the normal cervical lordosis. Vertebral body heights are maintained. Cervic al cord signal and caliber are normal. There is no intracanalicular mass or fluid collection. Paraver tebral soft tissues are unremarkable. There is no marrow replacement. Multilevel disc space narrowing is noted as well as facet arthrosis. C2-C3: The central canal and neural foramen are patent. C3-C4: Posterior disc osteophyte complex contacts the ventral aspect of the cord and effaces the lesa tral thecal sac. There is no cord signal abnormality. There is moderate right and severe left neural foraminal stenosis due to facet arthrosis and uncovertebral hypertrophy. C4-C5: Disc space narrowing is noted with posterior disc osteophyte complex that contacts the ventra l cord. There is severe bilateral neural foraminal stenosis due to facet arthrosis and uncovertebral hypertrophy. C5-C6: There is minimal posterior disc osteophyte complex. This slightly effaces the ventral thecal sac. Moderate to severe bilateral neural foraminal stenosis is noted. C6-C7: Posterior disc osteophyte complex results in minimal central canal narrowing. There is modera te right and severe left neural foraminal stenosis. C7-T1: Central canal and neural foramen are patent. IMPRESSION: 1. Normal cervical cord signal and caliber. 2. Multilevel degenerative disc disease with posterior disc osteophyte complexes that contact the lesa tral aspect of the cord with mild to moderate multilevel central canal stenosis. 3. Severe multilevel neural foraminal stenosis, as detailed above. Electronically signed by: Oumar Gann M.D. 07/15/2018 6:46 AM
[2018-07-15] MEDS: HydrALAZINE TAB 50 MG TAB PO SCH ×3 (07:49→20:54)
[2018-07-15] MEDS: CARVEDILOL 12.5 MG TAB PO SCH ×2 (07:49→20:53)
[2018-07-15] MEDS: FERROUS SULFATE 325 MG TAB PO SCH ×2 (07:49→20:54)
[2018-07-15] MEDS: CHOLECALCIFEROL 1,000 UNITS TAB PO SCH (07:49)
[2018-07-15] MEDS: ASPIRIN 81 MG ECTAB PO SCH (07:49)
[2018-07-15] MEDS: AMLODIPINE BESYLATE 5 MG TAB PO SCH (07:49)
[2018-07-15] MEDS: HEPARIN SOD 5,000 UNIT/0.5 ML VIAL SQ SCH ×2 (07:50→20:53)
[2018-07-15] MEDS: ATORVASTATIN 20 MG TAB PO SCH (07:50)
[2018-07-15] MEDS: PARoxetine HCl 20 MG TAB PO SCH (07:50)
[2018-07-15] MEDS: INSULIN ASPART 100 UNITS/ML 3 ML PEN SC SCH ×4 (08:23→20:55)
[2018-07-15] MEDS ORDERED: INSULIN HUMAN NPH SC ONE ×2 (08:30→17:00)
--- NOTE | 2018-07-15 13:05 | Pharmacy Report ---
Pharmacy Glycemic Short Note 2 - Date of Service July 15, 2018 - Glycemic Short BSG Results (Last 24 hours): 07/14/18 07/14/18 07/15/18 16:33 20:11 05:20 Glucose 116 H POC Glucose 248 H 255 H 07/15/18 07/15/18 07:35 11:37 Glucose POC Glucose 136 H 129 H OUTPATIENT ANTIDIABETIC REGIMEN: * No diabetic meds ASSESSMENT: * BSGs over the previous 24hrs have yielded hyperglycemia at times, likely steroid induced. [phone]/dL. He required 61 units of insulin yesterday. Basal heavy. He is now ordered a diet. PLAN FOR INPATIENT GLYCEMIC CONTROL: * NPH 15 units given this AM, NPH scale for dinner: BSGs <120mg/dL hold NPH, BSGs >/=120mg/dL give 15 units. I anticipate the DXM's metabolic effects on BSGs will start to taper this evening. * Bolus insulin ACHS * Goal Range: Low 120 mg/dL - High 160 mg/dL * Correction Factor: 20 mg/dL/unit * Nutritional / Prandial insulin per carb ratio of 1 unit per 8 grams CHO consumed * Please note that the plan above was derived based on current level of insulin resistance and hospital stress. These recommendations are appropriate for inpatient admission only. Plan of care upon discharge will need to be reassessed to avoid potential outpatient hypo/hyperglycemia.
--- NOTE | 2018-07-15 16:21 | Orthopedic Consultation ---
Date of Consultation July 15, 2018 Assessment & Plan (1) Ambulatory dysfunction: At this time he is obtained for review a cervical thoracic and lumbar MRI. I reviewed the scans personally. While he certainly has spondylosis consistent with a active 72-year-old male I do not appreciate any significant cord compression or lumbar nerve root compression that would account for his symptom complex. Strongly recommend he continue with his neurology work-up. Do not see anything surgical at this time. Present on Admission?: Yes History of Present Illness Reason for Consultation: Bilateral leg pain Attending Physician: Xanedr Holley MD History of Present Illness This is a 72-year-old male who presents the emergency room a few days ago with significant onset of weakness involving his bilateral lower extremities and his upper extremities. He denies any specific trauma fall or event. He has no history of similar complaints. He describes weakness with raising his arms over his head which apparently he was quite comfortable doing several days prior. He has marked complaints with weakness in his quadriceps. He has significant difficulty getting out of the chair. Again he states this is entirely a new finding for the patient. He denies any clear radicular complaints and denies any loss of bowel or bladder function. He does have known peripheral neuropathy but describes no increase in symptoms. Allergies Allergy/AdvReac Type Severity Reaction Status Date / Time sitagliptin Allergy Unknown LIGHTHEADEDNESS Verified 11/27/17 17:46 AND PAINS IN UPPER STOMACH Home Medications Home Medications Medication Instructions Recorded Confirmed Type amlodipine [Norvasc] 10 mg PO QAM 11/27/17 07/13/18 History aspirin [Aspirin Low Dose] 81 mg PO QAM 11/27/17 07/13/18 History atorvastatin [Lipitor] 20 mg PO DAILY 11/27/17 07/13/18 History carvedilol [Coreg] 12.5 mg PO BID 11/27/17 07/13/18 History cholecalciferol (vitamin D3) 3,000 unit PO QAM 11/27/17 07/13/18 History [Vitamin D3] ferrous sulfate 325 mg PO BID 11/27/17 07/13/18 History hydralazine 100 mg PO TID 11/27/17 07/13/18 History paroxetine HCl [Paxil] 20 mg PO DAILY 11/27/17 07/13/18 History torsemide 10 mg PO DAILY 07/13/18 07/13/18 History Patient History Medical History Diabetes mellitus, type II (Chronic) Chronic renal failure, stage 4 (severe) (Chronic) HTN (hypertension) (Chronic) Depression (Chronic) Hyperlipidemia (Chronic) ANI (acute kidney injury) (Resolved) Anemia (Chronic) Hgb 6.8 on admission s/p 2 units PRBCs 11/2017 Anxiety (Chronic) Surgical History History of esophagogastroduodenoscopy (EGD) (Chronic) 11/28/2017: esophagitis, +H Pylori. 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 He does appear comfortable. He is weak wrapper stemmer hand bilateral upper extremities no Emmanuel sign. He is unable to raise his arms above neutral position. He is unable to get out of his chair secondary to significant quadricep weakness. He does have reasonable plantar flexion dorsiflexion bilaterally. Tendon reflexes are within normal limits. Sensory appears to be symmetric and intact. Results & Data Vital Signs (Past 12 Hours) Vital Signs Temp Pulse Resp BP Pulse Ox 07/15/18 07:04 36.5 C 84 20 155/74 H 97
--- NOTE | 2018-07-15 16:23 | Magnetic Resonance Report ---
MR thoracic spine wo con HISTORY: Pain. Weakness. lower extremity weakness TECHNIQUE: Multiplanar multisequence MRI of the thoracic spine was performed without the use of contr ast. COMPARISON: None. FINDINGS: Considerable degenerative disc change throughout the entire thoracic region. Signal characteristics o f the thoracic cord are unremarkable. No evidence for compression deformity. Moderate reactive bone marrow endplate edematous change on a d egenerative basis. Mild broad-based disc bulges T1-T6. No major compromise of the neural foramina or spinal canal. Focal right posterior osteophyte T7-T8. Mild impact anterior thoracic cord. Moderate narrowing right neuro foramina. Mild posterior disc bulges and posterior osteophyte complexes throughout the remainder the thoracic region. No evidence for a significant component of spinal or high-grade foraminal stenosis. IMPRESSION: 1. Severe degenerative disc change throughout the entire thoracic region. 2. Multilevel bulging disc and posterior osteophyte complexes creating only minimal impact upon the a nterior thoracic cord and neural foramina. 3. No evidence for significant component of spinal or foraminal stenotic change. The above report was generated using voice recognition software. It may contain grammatical, syntax or spelling errors. Electronically signed by: Gennaro Lam M.D. 07/15/2018 4:22 PM
--- NOTE | 2018-07-15 17:03 | Neurology Consultation ---
Date of Consultation July 15, 2018 Assessment & Plan (1) Ambulatory dysfunction: 1. lower extremities weakness L>R -more proximal weakness bilaterally 2. left >right UE weakness- not related to MRI 3. orthopedic- consulted for input no orthopedic needs at this time 4. labs- sed rate, CRP, CK, aldolase, spep- pending 5. LP - order for tomorrow am with protein, glucose, gram stain, cell count, culture- opening and closing pressures 6. LE sensory loss bilaterally Supervising Physician Co-Signing Physician Notes I have seen and discussed above patient with Dr Vadim Phillips. Patient seen and examined. Agree with Ana Wilcox As noted below. PAtient son at bedside. Admitted for acute onset upper and lower extremity weakness. This is new. Denies recent illness or diarrhea. MRI cervical spine was negative for cord compression or myelopathy. He has CKD and DM. Denies pain or new numbness or paresthesias. CK normal. He is has significant proximal symmetric weakness on examine. Reflexes absent in lower extremities. Needs LP for evaluation of possible GBS. IR LP ordered for evaluation of CSF protein and cell count. Appreciate help. History of Present Illness Attending Physician: Xander Holley MD Allergies Allergy/AdvReac Type Severity Reaction Status Date / Time sitagliptin Allergy Unknown LIGHTHEADEDNESS Verified 11/27/17 17:46 AND PAINS IN UPPER STOMACH Home Medications Home Medications Medication Instructions Recorded Confirmed Type amlodipine [Norvasc] 10 mg PO QAM 11/27/17 07/13/18 History aspirin [Aspirin Low Dose] 81 mg PO QAM 11/27/17 07/13/18 History atorvastatin [Lipitor] 20 mg PO DAILY 11/27/17 07/13/18 History carvedilol [Coreg] 12.5 mg PO BID 11/27/17 07/13/18 History cholecalciferol (vitamin D3) 3,000 unit PO QAM 11/27/17 07/13/18 History [Vitamin D3] ferrous sulfate 325 mg PO BID 11/27/17 07/13/18 History hydralazine 100 mg PO TID 11/27/17 07/13/18 History paroxetine HCl [Paxil] 20 mg PO DAILY 11/27/17 07/13/18 History torsemide 10 mg PO DAILY 07/13/18 07/13/18 History Patient History Medical History Diabetes mellitus, type II (Chronic) Chronic renal failure, stage 4 (severe) (Chronic) HTN (hypertension) (Chronic) Depression (Chronic) Hyperlipidemia (Chronic) ANI (acute kidney injury) (Resolved) Anemia (Chronic) Hgb 6.8 on admission s/p 2 units PRBCs 11/2017 Anxiety (Chronic) Surgical History History of esophagogastroduodenoscopy (EGD) (Chronic) 11/28/2017: esophagitis, +H Pylori. 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 Beliefs That Will Affect Care: None Current Living Situation: Alone Other Information That Helps Us Care for You: No Feels Safe at Home: Yes Safety Concerns: Feels Safe At This Time Smoking Status: Former smoker Cigarettes Per Day: 2004 Do You Dip or Chew Tobacco: No Second Hand Exposure: No Tobacco Cessation Education Requested by Patient: No Hx Alcohol Use: Yes Alcohol type: beer Alcohol Intake Frequency Comment: 3-4 beers a week Hx Substance Use: No Physical Exam Physical Exam: Gen: alert NAD lungs course breath sounds CV RRR UE biceps triceps deltoids 3/5 bilaterally slightly decreased in HOME, hip flex 3/5, plantar flex ext 5/5 reflexes decreased throughout sensation loss bilaterally LE with GT proprioception absent Results & Data Vital Signs (Past 12 Hours) Vital Signs Temp Pulse Resp BP Pulse Ox 07/15/18 07:04 36.5 C 84 20 155/74 H 97 Laboratory Results Abnormal lab results 07/14/18 07/14/18 07/15/18 Range/Units 05:41 20:11 05:20 ESR 43 H (0-14) mm/hr Carbon Dioxide 20 L (21-32) mmol/L BUN 67 H (7-18) mg/dl Creatinine 2.84 H (0.6-1.4) mg/dl BUN/Creatinine Ratio 23.6 H (10-20) Glucose 116 H (70-99) mg/dl POC Glucose 255 H (70-99) 07/15/18 07/15/18 07/15/18 Range/Units 07:35 11:37 16:45 ESR (0-14) mm/hr Carbon Dioxide (21-32) mmol/L BUN (7-18) mg/dl Creatinine (0.6-1.4) mg/dl BUN/Creatinine Ratio (10-20) Glucose (70-99) mg/dl POC Glucose 136 H 129 H 171 H (70-99) Diagnostic Findings MRI t spine Severe degenerative disc change throughout the entire thoracic region. Multilevel bulging disc and posterior osteophyte complexes creating only minimal impact upon the anterior thoracic cord and neural foramina. MRI c spine- Normal cervical cord signal and caliber. Multilevel degenerative disc disease with posterior disc osteophyte complexes that contact the ventral aspect of the cord with mild to moderate multilevel central canal stenosis. Severe multilevel neural foraminal stenosis, as detailed above.
--- NOTE | 2018-07-15 17:45 | Hospitalist Progress Note ---
Date of Service July 15, 2018 Assessment & Plan (1) Weakness: B/L LE weakness Ambulatory Dysfunction TSH: Normal Vitamin B 12:1798 --MRI Brain: No acute intracranial abnormality. --Lumbar MRI:Moderate bone marrow edema about the left posterior lateral aspect of the L1 vertebral body associated with acute appearing Schmorl's node. Moderate soft tissue edema tracks along the left neuroforamen. No acute compression deformity. L3-L4 there is moderate central canal, mild to moderate right and moderate left foraminal narrowing. L4-L5 there is moderate to severe central canal with moderate to severe right and moderate left foraminal narrowing. --Neck MRI:Normal cervical cord signal and caliber. Multilevel degenerative disc disease with posterior disc osteophyte complexes that contact the ventral aspect of the cord with mild to moderate multilevel central canal stenosis. Severe multilevel neural foraminal stenosis, as detailed above. --Throracic MRI: Severe degenerative disc change throughout the entire thoracic region. Multilevel bulging disc and posterior osteophyte complexes creating only minimal impact upon the anterior thoracic cord and neural foramina. No evidence for significant component of spinal or foraminal stenotic change. --Imaging studies not contributory to symptoms --ESR: 43 CRP:0.37 CK:178 Aldolase:pending SPEP: pending TSH:1.4 Lyme Screen: negative LIA:pending --Lumbar Puncture ordered --Appreciate Neurology/Orthopedics Input Received IV Decadron--No improvement --PT/OT Leukocytosis Likely due to Decadron Monitor Dehydration Received IV fluids (2) Hyperglycemia: (3) Diabetes mellitus, type II: A1c: 6.5 on 05/14/18 Pt not on any diabetes medications Glucose: 324, beta-hydroxybutyric acid: 2.2 on presentation Previously on Metformin--DCed due to CKD Monitor BGs BGs elevated due to Decadron Continue Novolog sliding scale (4) HTN (hypertension): Stable continue amlodipine, carvedilol, hydralazine Resume torsemide as able (5) Hyperlipidemia: continue atorvastatin (6) Chronic renal failure, stage 4 (severe): Baseline Cr 2.8 monitor renal functions Avoid nephrotoxic agents when possible (7) Depression: continue paroxetine (8) Anemia: Chronic anemia Baseline Hgb: 9-10. Denies bleeding issues Monitor H&H Continue ferrous sulfate DVT Px: Heparin SQ Code Status: Full Code Disposition: Follows with Dr Fiona Novoa for routine care Subjective Patient is seen and examined at bedside No change in B/L LE weakness and balance issues with ambulation Appreciate Ortho and Neuro Input Planned for L.P for further eval Offers no other complaints Review of Systems Review of Systems: All systems reviewed & are unremarkable except as noted in HPI & below Physical Exam Physical Exam: Physical Exam: Vitals signs as noted above General Appearance:Moderately built and nourished, no apparent distress Head: normocephalic, Atraumatic Eyes: normal inspection, EOMI Neck: supple, Trachea midline Respiratory/Chest: Normal breath sounds, CTA Cardiovascular: S1, S2, No murmur Abdomen/GI:Soft, Non tender, Bowel sounds present Extremities/Musculoskelatal:normal inspection, B/L LE weakness L> R, decreased sensation Neurologic/Psych:AAOX3, grossly no focal neurological deficits Skin: normal color, warm Results & Data Vital Signs (Past 12 Hours) Vital Signs Temp Pulse Resp BP Pulse Ox 07/15/18 07:04 36.5 C 84 20 155/74 H 97 Laboratory Results [facility] 07/15/18 05:20 Sodium 137 Potassium 4.2 Chloride 107 Carbon Dioxide 20 L BUN 67 H Creatinine 2.84 H Glucose 116 H Calcium 8.9 (1) Diabetes mellitus, type II Diabetes mellitus complication status: without complication Diabetes mellitus snf insulin use: unspecified snf insulin use status Qualified Code(s): E11.9 - Type 2 diabetes mellitus without complications
[2018-07-16 05:47] LABS: Hematocrit (blood only) 32.6 % (42-52); Hemoglobin 11.5 g/dL (14.0-18.0); Mean Corpuscular Hgb Conc 35.3 g/dL (32-36); Mean Corpuscular Volume 86.9 fL (80-100); Mean Platelet Volume 10.1 fL (7.4-10.4); Platelet Count 195 K/uL (130-400); Red Blood Count 3.75 M/uL (4.7-6.1); White Blood Count 22.23 K/uL (4.8-10.8)
[2018-07-16 06:22] LABS: BUN Creatinine Ratio 26.6 (10-20); Calcium 8.3 mg/dl (8.5-10.1); Creatinine Clr Calc Pharmacy 23.5 ml/min; Est GFR (Non-African American) 19.9; Potassium 3.9 mmol/L (3.5-5.1)
[2018-07-16] MEDS: HEPARIN SOD 5,000 UNIT/0.5 ML VIAL SQ SCH (07:46)
[2018-07-16] MEDS ORDERED: POLYETHYLENE (MIRALAX) 17 GM PACK PO SCH (07:50)
[2018-07-16] MEDS: PARoxetine HCl 20 MG TAB PO SCH (08:01)
[2018-07-16] MEDS: CHOLECALCIFEROL 1,000 UNITS TAB PO SCH (08:01)
[2018-07-16] MEDS: AMLODIPINE BESYLATE 5 MG TAB PO SCH (08:01)
[2018-07-16] MEDS: ATORVASTATIN 20 MG TAB PO SCH (08:01)
[2018-07-16] MEDS: FERROUS SULFATE 325 MG TAB PO SCH (08:01)
[2018-07-16] MEDS: CARVEDILOL 12.5 MG TAB PO SCH (08:02)
[2018-07-16] MEDS: HydrALAZINE TAB 50 MG TAB PO SCH ×2 (08:02→14:20)
[2018-07-16] MEDS: INSULIN ASPART 100 UNITS/ML 3 ML PEN SC SCH ×3 (08:03→18:22)
[2018-07-16] MEDS: INSULIN HUMAN NPH SC SCH ×2 (09:21→18:18)
--- NOTE | 2018-07-16 14:08 | Fluoroscopy Report ---
FLUOROSCOPIC GUIDED LUMBAR PUNCTURE CLINICAL HISTORY: New onset extremity weakness. PROCEDURE: The risks, benefits, and alternatives to the procedure is discussed with the patient who v oiced understanding. Written informed consent was obtained. The patient was placed prone on the fluor oscopy table. The lower back was prepped and draped in the usual sterile fashion. 1% lidocaine was us ed for local anesthesia. A 20-gauge spinal needle was inserted into the L2-L3 interlaminar space, and approximately 10 cc of clear colorless cerebrospinal fluid was removed. Opening and closing pressure s were performed. 2 spot images were saved. The patient tolerated the procedure well. There were no i mmediate complications. The patient was then transported to medical floor for further observation. Fluoroscopy time: 1.3 minutes Opening pressures: 10 cm of water Closing pressures: 8 cm of water IMPRESSION: Fluoroscopic guided lumbar puncture with removal of approximately 10 cc of cerebrospinal fluid. There were no immediate complications. Electronically signed by: Jon Noyola M.D. 07/16/2018 2:07 PM
[2018-07-16 14:19] LABS: CSF Chemistry Tube # 1
[2018-07-16 14:23] LABS: Appearance CSF Clear; CSF Count Tube # 3; CSF Xanthrochromic No xanthochromia; Color CSF Colorless; Red Blood Cell CSF (A) 1 /uL (0-); Red Blood Cell CSF (B) 0 /uL (0-); White Blood Cell CSF (A) 1 /uL (0-5); White Blood Cell CSF (B) 1 /uL (0-5)
[2018-07-16 14:27] LABS: CSF Glucose 91 mg/dl (40-70); Total Protein CSF 72.4 mg/dl (15-45)
--- NOTE | 2018-07-16 14:44 | Neurology Progress Note ---
Date of Service July 16, 2018 Assessment & Plan (1) Ambulatory dysfunction: 1. lower extremities weakness L>R -more proximal weakness bilaterally 2. left >right UE weakness- not related to MRI 3. orthopedic- consulted for input no orthopedic needs at this time 4. labs- sed rate, CRP, CK, aldolase, spep- pending 5. LP - order for tomorrow am with protein, glucose, gram stain, cell count, culture- opening and closing pressures 6. LE sensory loss bilaterally 7. flat for 2-4 hours further evaluation tomorrow Supervising Physician Co-Signing Physician Notes I have seen and discussed above patient with Dr Zeus Phillips. Patient was seen and examined. Had LP today. CSF protein elevated at 73. Csf glucose elevated, although he is diabetic and serum glucose has been elevated. 1 WBC. He reports minimal to no improvement in weakness. Remains areflexic in the lower extremities. On examine he has proximal and distal weakness (proximal>distal) in all 4 extremities; L>R. 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 Recommend transfer to [facility] for further evaluation and treatment. Case discuss with Dr. Richards at [facility] in [place], [place]. Patient argeed to plan of care. Godwin Aaron is a 72 year old male with PMH - HTN, HLD, DM II, CKD IV, h/o hyperkalemia with LUCHO/ARB use presented to ER with complaint of weakness x 2 days. He woke up and try to get out of bed and noticed bilateral leg weakness and difficulty standing and walking secondary to leg weakness and then had some arm weakness. 2 days prior he was working on his jeep and standing on step stool and stepped off and missed a step and hit his left ribs on the car frame. he is not having any rib or chest or abdominal pain. He thinks he "tweaked" his left lower back. He had chronic numbness/tingling sensation to bilateral feet which he thinks might be a little increased. He reports that he has been eating and drinking normally no medication changes. He also states he has some chronic neck pain which he thinks is worse than prior to the leg weakness. He had the LP today and is flat. He states he feels good no new complaints. 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 4/5, deltoids 3/5, hip flex 3+/5, plantar flex ext 5/5 neuro smile eye brow raise symmetric reflexes decreased throughout Results & Data Vital Signs (Past 12 Hours) Vital Signs Temp Pulse Resp BP Pulse Ox 07/16/18 07:29 36.5 C 81 16 153/66 H 95 Laboratory Results Abnormal lab results 07/15/18 07/15/18 07/16/18 Range/Units 16:45 19:53 05:17 WBC (4.8-10.8) K/uL RBC (4.7-6.1) M/uL Hgb (14.0-18.0) g/dL Hct (42-52) % Sodium 135 L (136-145) mmol/L BUN 79 H (7-18) mg/dl Creatinine 2.98 H (0.6-1.4) mg/dl BUN/Creatinine Ratio 26.6 H (10-20) Glucose 111 H (70-99) mg/dl POC Glucose 171 H 108 H (70-99) Calcium 8.3 L (8.5-10.1) mg/dl CSF Glucose (40-70) mg/dl CSF Total Protein (15-45) mg/dl 07/16/18 07/16/18 07/16/18 Range/Units 05:17 07:41 11:55 WBC 22.23 H (4.8-10.8) K/uL RBC 3.75 L (4.7-6.1) M/uL Hgb 11.5 L (14.0-18.0) g/dL Hct 32.6 L (42-52) % Sodium (136-145) mmol/L BUN (7-18) mg/dl Creatinine (0.6-1.4) mg/dl BUN/Creatinine Ratio (10-20) Glucose (70-99) mg/dl POC Glucose 136 H 181 H (70-99) Calcium (8.5-10.1) mg/dl CSF Glucose (40-70) mg/dl CSF Total Protein (15-45) mg/dl 07/16/18 Range/Units 13:55 WBC (4.8-10.8) K/uL RBC (4.7-6.1) M/uL Hgb (14.0-18.0) g/dL Hct (42-52) % Sodium (136-145) mmol/L BUN (7-18) mg/dl Creatinine (0.6-1.4) mg/dl BUN/Creatinine Ratio (10-20) Glucose (70-99) mg/dl POC Glucose (70-99) Calcium (8.5-10.1) mg/dl CSF Glucose 91 H (40-70) mg/dl CSF Total Protein 72.4 H (15-45) mg/dl Diagnostic Findings LP-Fluoroscopic guided lumbar puncture with removal of approximately 10 cc of cerebrospinal fluid. There were no immediate complications. opening pressure 10 closing pressure 8
--- NOTE | 2018-07-16 14:54 | Pharmacy Report ---
Pharmacy Glycemic Short Note 2 - Date of Service July 16, 2018 - Glycemic Short BSG Results (Last 24 hours): 07/15/18 07/15/18 07/16/18 16:45 19:53 05:17 Glucose 111 H POC Glucose 171 H 108 H 07/16/18 07/16/18 07:41 11:55 Glucose POC Glucose 136 H 181 H OUTPATIENT ANTIDIABETIC REGIMEN: * No diabetic meds ASSESSMENT: * BSGs over the previous 24hrs were much improved. It appears steroid effect is tapering off, thus I will back off of NPH significantly. He required 43 units of insulin yesterday. He is ordered a diet. Will continue with current novolog coverage, but this may need to be loosened going forward. I did lower goal range. PLAN FOR INPATIENT GLYCEMIC CONTROL: * NPH 5 units SQ BID with meals * Bolus insulin ACHS * Goal Range: Low 110 mg/dL - High 140 mg/dL * Correction Factor: 20 mg/dL/unit * Nutritional / Prandial insulin per carb ratio of 1 unit per 8 grams CHO consumed * Please note that the plan above was derived based on current level of insulin resistance and hospital stress. These recommendations are appropriate for inpatient admission only. Plan of care upon discharge will need to be reassessed to avoid potential outpatient hypo/hyperglycemia.
--- NOTE | 2018-07-16 16:07 | Hospitalist Progress Note ---
Date of Service July 16, 2018 Assessment & Plan (1) Weakness: Presented with sudden onset of B/L LE weakness Leading to fall ambulatory Dysfunction - TSH: Normal Vitamin B 12:1798 --MRI Brain: No acute intracranial abnormality. --Lumbar MRI:Moderate bone marrow edema about the left posterior lateral aspect of the L1 vertebral body associated with acute appearing Schmorl's node. Moderate soft tissue edema tracks along the left neuroforamen. No acute compression deformity. L3-L4 there is moderate central canal, mild to moderate right and moderate left foraminal narrowing. L4-L5 there is moderate to severe central canal with moderate to severe right and moderate left foraminal narrowing. --Neck MRI:Normal cervical cord signal and caliber. Multilevel degenerative disc disease with posterior disc osteophyte complexes that contact the ventral aspect of the cord with mild to moderate multilevel central canal stenosis. Severe multilevel neural foraminal stenosis, as detailed above. --Throracic MRI: Severe degenerative disc change throughout the entire thoracic region. Multilevel bulging disc and posterior osteophyte complexes creating only minimal impact upon the anterior thoracic cord and neural foramina. No evidence for significant component of spinal or foraminal stenotic change. --Imaging studies not contributory to symptoms - Lyme Screen: negative LIA:pending - --Appreciate Neurology/Orthopedics Input -Lumbar puncture shows elevated protein level, elevated glucose, WBC 1 suggestive of Guillain-Patino syndrome Patient will need to be transferred to higher level of care, [facility] called IVIG versus plasmapheresis Patient is accepted to be transferred under neurology service Stable to be transferred via ground BLS (2) Hyperglycemia: Possible steroid-induced, given IV Decadron for possible radiculopathy, showed no improvement of lower extremity neurological symptoms/weakness (3) Diabetes mellitus, type II: A1c: 6.5 on 05/14/18 Pt not on any diabetes medications Glucose: 324, beta-hydroxybutyric acid: 2.2 on presentation Previously on Metformin--DCed due to CKD Monitor BGs BGs elevated due to Decadron Continue Novolog sliding scale (4) HTN (hypertension): Stable continue amlodipine, carvedilol, hydralazine Resume torsemide as able (5) Hyperlipidemia: continue atorvastatin (6) Chronic renal failure, stage 4 (severe): Creatinine at baseline, avoid NSAIDs, contrast studies (7) Depression: continue paroxetine (8) Anemia: Chronic anemia Baseline Hgb: 9-10. Continue ferrous sulfate DVT Px: SCD and teds, and avoid pharmacological anticoagulation, patient had lumbar puncture today 07/16/2018 Code Status: Full Code Disposition: Patient is being transferred to [facility] for further care accepting physician of Dr. Huy Richards neurology 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 Chu, Patient will need to be transferred to tertiary care for IVIG versus plasm apheresis Discussed with patient at bedside both by myself and neurology Dr. Chu, she is willing to be transferred to [facility] Contacted with on-call neurology at [facility] Dr. Richards patient is accepted under neurology service, will be Transferred today via ambulance/ground BLS Patient's son present at bedside, updated Physical Exam Constitutional: WD/WN, vitals as above no acute distress Eyes: PERRL, conjunctivae normal, anicteric sclerae ENMT: external ear and nose normal, oropharynx normal Neck: trachea midline, no thyromegaly Respiratory: normal respiratory effort, lungs clear to auscultation Cardiovascular: RRR, no murmur, no edema Gastrointestinal (Abdomen): normal bowel sounds, soft, nontender, no hepatosplenomegaly Musculoskeletal: Flaccid paralysis of bilateral lower extremity, and no reflex Skin: no rashes, warm and dry Neurologic: Flaccid paralysis of bilateral lower extremity with absence of reflex Psychiatric: A+Ox3, euthymic affect Results & Data Vital Signs (Past 12 Hours) Vital Signs Temp Pulse Resp BP Pulse Ox 07/16/18 15:31 36.3 C L 82 20 160/63 H 97 07/16/18 07:29 36.5 C 81 16 153/66 H 95 (1) Diabetes mellitus, type II Diabetes mellitus complication status: without complication 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
--- NOTE | 2018-07-16 17:04 | Discharge Summary ---
Date of Service July 16, 2018 Admission HPI Per Admitting Provider Pt is 72 y/o M with PMH HTN, HLD, DM II, CKD IV, h/o hyperkalemia with LUCHO/ARB use presented to ER with complaint of weakness x 2 days. Patient states yesterday woke up and try to get out of bed and noticed bilateral leg weakness and difficulty standing and walking secondary to leg weakness. He states this morning when he woke up his bilateral arms felt a little weak however that resolved after getting up out of bed. Patient states 2 days ago was working on his jeep and standing on step stool and stepped off and missed a step patient states hit his left ribs on the car frame. States he has a small bruise to his ribs however not having any rib or chest or abdominal pain. Patient states when he did this he felt like he "tweaked" his left lower back. States throughout the day did not have any back pain, and since his family noticed pulling sensation to left lower back with raising of his left leg however denies significant pain. Patient denies any pain to legs. He reports chronic numbness/tingling sensation to bilateral feet which he thinks might be a little increased. Denies any other leg paresthesias. Denies history of back problems or injury in past. Denies any loss of control of bowel or bladder, saddle paresthesias. He reports that he has been eating and drinking normally. Has not checked his blood sugars for the past couple of days usually checks couple times a week and reports fasting BSG of 120-130. Patient is not currently on any diabetes medications. States for the past 1 to 2 months has had some postnasal drip and occasional cough. He denies any increased cough, wheezing, SOB. Denies fever/chills, diaphoresis, N/V/D/C, THAKKAR, dizziness, syncope, vision changes, neck pain, CP, SOB, orthopnea, palpitations, sore throat, choking, otalgia, abdominal pain, extremity edema, rashes, urinary symptoms, melena, hematochezia. Denies any other injury or trauma. 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 Discharge Exam Constitutional WD/WN, vitals as above no acute distress Eyes PERRL, conjunctivae normal, anicteric sclerae ENMT external ear and nose normal, oropharynx normal Neck trachea midline, no thyromegaly Respiratory normal respiratory effort, lungs clear to auscultation Cardiovascular RRR, no murmur, no edema Gastrointestinal (Abdomen) normal bowel sounds, soft, nontender, no hepatosplenomegaly Skin no rashes, warm and dry Psychiatric A+Ox3, euthymic affect Discharge Data Allergies Allergy/AdvReac Type Severity Reaction Status Date / Time sitagliptin Allergy Unknown LIGHTHEADEDNESS Verified 11/27/17 17:46 AND PAINS IN UPPER STOMACH Consultations 07/13/18 11:37 ED Decision to Admit Stat 07/13/18 14:42 Consult Case Management - Discharge Planning Routine 07/14/18 07:30 Consult Orthopedic Surgery Routine 07/14/18 14:06 Consult Neurology Routine 07/16/18 16:18 Burn CD for patient Stat Ordered Studies 07/13/18 09:45 CT abd pelvis wo con Stat CT head/brain wo con Stat CT lumbar spine wo con Stat 07/13/18 14:42 MR brain wo con Routine MR lumbar spine wo con Routine 07/14/18 21:16 MR cervical spine wo con Routine 07/15/18 10:15 MR thoracic spine wo con Urgent 07/16/18 13:00 FL lumbar puncture diagnostic Routine Hospital Course (1) Weakness: Presented with sudden onset of B/L LE weakness Leading to fall ambulatory Dysfunction - TSH: Normal Vitamin B 12:1798 --MRI Brain: No acute intracranial abnormality. --Lumbar MRI:Moderate bone marrow edema about the left posterior lateral aspect of the L1 vertebral body associated with acute appearing Schmorl's node. Moderate soft tissue edema tracks along the left neuroforamen. No acute compression deformity. L3-L4 there is moderate central canal, mild to moderate right and moderate left foraminal narrowing. L4-L5 there is moderate to severe central canal with moderate to severe right and moderate left foraminal narrowing. --Neck MRI:Normal cervical cord signal and caliber. Multilevel degenerative disc disease with posterior disc osteophyte complexes that contact the ventral aspect of the cord with mild to moderate multilevel central canal stenosis. Severe multilevel neural foraminal stenosis, as detailed above. --Throracic MRI: Severe degenerative disc change throughout the entire thoracic region. Multilevel bulging disc and posterior osteophyte complexes creating only minimal impact upon the anterior thoracic cord and neural foramina. No evidence for significant component of spinal or foraminal stenotic change. --Imaging studies not contributory to symptoms - Lyme Screen: negative LIA:pending - --Appreciate Neurology/Orthopedics Input -Lumbar puncture shows elevated protein level, elevated glucose, WBC 1 suggestive of Guillain-Patino syndrome Patient will need to be transferred to higher level of care, [facility] called IVIG versus plasmapheresis Patient is accepted to be transferred under neurology service Stable to be transferred via ground BLS (2) Hyperglycemia: Possible steroid-induced, given IV Decadron for possible radiculopathy, showed no improvement of lower extremity neurological symptoms/weakness (3) Diabetes mellitus, type II: A1c: 6.5 on 05/14/18 Pt not on any diabetes medications Glucose: 324, beta-hydroxybutyric acid: 2.2 on presentation Previously on Metformin--DCed due to CKD Monitor BGs BGs elevated due to Decadron Continue Novolog sliding scale (4) HTN (hypertension): Stable continue amlodipine, carvedilol, hydralazine Resume torsemide as able (5) Hyperlipidemia: continue atorvastatin (6) Chronic renal failure, stage 4 (severe): Creatinine at baseline, avoid NSAIDs, contrast studies (7) Depression: continue paroxetine (8) Anemia: Chronic anemia Baseline Hgb: 9-10. Continue ferrous sulfate DVT Px: SCD and teds, and avoid pharmacological anticoagulation, patient had lumbar puncture today 07/16/2018 Code Status: Full Code Disposition: Patient is being transferred to [facility] for further care accepting physician of Dr. Melida Richards neurology [facility] Total Time Total Time Spent Total Time Spent (In Minutes): Approximately 45 minutes Total Time Includes: Examination of the Patient, Discharge Planning, Medication Reconciliation and Communication With Other Providers Discharge Plan Discharge Items Patient Disposition: Transfer Acute Care Hospital Reason For Visit: WEAKNESS Discharge Diagnosis: BILATERAL LOWER EXTREMITY WEAKNESS /GULLIAN BERRIE SYNDROME Discharge Goals: Decrease discomfort Activity: Resume your previous activity Non-emergency contact: Primary Care Provider Call non-emergency contact if: you have any medication questions Follow-up/Referrals: Fiona Novoa DO [Primary Care Provider] - Diet: Regular Addtl Provider Instructions: PT IS TRANSFERRED TO [facility] FOR POSSIBLE GBS -WILL REQUIRE IV IG VS PLASMAPHARESIS ACCEPTING PHYSICIAN DR MELIDA DARRYN -NEUROLOGY Prescriptions: Continued carvedilol [Coreg] 12.5 mg Tablet 12.5 mg PO BID RF: 0 amlodipine [Norvasc] 10 mg Tablet 10 mg PO QAM RF: 0 hydralazine 100 mg Tablet 100 mg PO TID RF: 0 ferrous sulfate 325 mg (65 mg iron) Tablet 325 mg PO BID RF: 0 cholecalciferol (vitamin D3) [Vitamin D3] 1,000 unit Tablet 3,000 unit PO QAM RF: 0 atorvastatin [Lipitor] 20 mg Tablet 20 mg PO DAILY RF: 0 paroxetine HCl [Paxil] 20 mg Tablet 20 mg PO DAILY RF: 0 Discontinued aspirin [Aspirin Low Dose] 81 mg Tablet,Delayed Release (Dr/Ec) 81 mg PO QAM RF: 0 torsemide 10 mg Tablet 10 mg PO DAILY RF: 0 Stand-Alone Forms: [facility] Discharge Orders: Discharge Order (Routine); Ordered 07/16/18 Ordered By: Cecilia Coleman Admission Data Admit Date/Time: 07/16/18 14:52 Attending Provider: Cecilia Coleman Admit Provider: Xander Holley Primary Care Provider: Fiona Novoa Other Providers: Xander Holley ; James Siddiqi ; Vadim Phillips Service: Medical
[2018-07-19 02:22] LABS: Anti Nuclear Antibody Screen NEGATIVE (NEGATIVE)
== END 2018-07-16 19:55 | disposition short-term general hospital (02) | DRG 95 ==
LOC: 4E 08:51 → ED 08:51 → SUATTDRO 12:47 → 4E 14:06

== ENCOUNTER 2018-07-24 16:00 | Inpatient (IN) ==
[2018-07-24 16:36] LABS: Hemoglobin 7.3 g/dL (14.0-18.0); Mean Corpuscular Hgb Conc 34.8 g/dL (32-36); Mean Corpuscular Volume 86.4 fL (80-100); Mean Platelet Volume 9.3 fL (7.4-10.4); Platelet Count 189 K/uL (130-400); RDW Coefficient of Variation 13.3 % (11.5-14.5); RDW Standard Deviation 42.7 fL (36.4-46.3); Red Blood Count 2.43 M/uL (4.7-6.1); White Blood Count 11.72 K/uL (4.8-10.8)
[2018-07-24 17:02] LABS: Basophils # (auto) 0.02 K/uL (0-0.2); Basophils % (auto) 0.2 %; Eosinophils # (auto) 0.08 K/uL (0-0.5); Eosinophils % (auto) 0.7 %; Immature Granulocytes # (auto) 0.11 K/uL (0.00-0.02); Immature Granulocytes % (auto) 0.9 %; Lymphocytes # (auto) 1.34 K/uL (1.2-3.4); Lymphocytes % (auto) 11.4 %; Monocytes % (auto) 9.4 %; Neutrophils # (auto) 9.07 K/uL (1.4-6.5); Neutrophils % (auto) 77.4 %; RBC Morphology Unremarkable
[2018-07-24 17:43] LABS: Albumin Globulin Ratio 0.9 (0.9-2); BUN Creatinine Ratio 33.5 (10-20); Bilirubin,Total 0.4 mg/dl (0.2-1); Calcium 8.2 mg/dl (8.5-10.1); Creatinine Clr Calc Pharmacy 20.5 ml/min; Est GFR (African American) 19.7; Globulin 3.4 gm/dl (2.5-4.0); Potassium 3.8 mmol/L (3.5-5.1); Total Protein 6.4 gm/dl (6.4-8.2)
[2018-07-24] MEDS ORDERED: SODIUM CHLORIDE 0.9% 250 ML IV PRN (17:58)
[2018-07-24] MEDS ORDERED: SODIUM CHLORIDE 0.9% 1000ML 1,000 ML IV STA (18:00)
[2018-07-24] MEDS ORDERED: FAMOTIDINE 20MG/5ML IV PUSH IV STA (18:00)
[2018-07-24 18:03] LABS: Beta-Hydroxybutyrate 1.71 mg/dl (0.2-2.81)
[2018-07-24] MEDS ORDERED: SODIUM CHLORIDE 0.9% 500 ML IV ONE (18:05)
[2018-07-24 18:17] LABS: Prothrombin Time 10.2 Seconds (9.0-12.0)
[2018-07-24 18:32] LABS: Magnesium 2.5 mg/dl (1.8-2.4); Phosphorus 4.1 mg/dl (2.5-4.9)
[2018-07-24 18:45] LABS: Appearance Urine Clear (Clear); Bacteria Urine Automated Negative (Negative); Bilirubin Urine Negative (Negative); Blood Urine Negative (Negative); Color Urine Yellow; Epithelial Cell Urine Auto 0-5 /lpf (0-5); Glucose Urine UA 3+ (Negative); Ketones Urine Negative (Negative); Leukocyte Esterase Urine Negative (Negative); Nitrite Urine Negative (Negative); Protein Urine 1+ (Negative); RBC Urine Automated 0-4 /hpf (0-4); Urobilinogen Urine Negative (Negative)
--- NOTE | 2018-07-24 18:54 | Emergency Department Note ---
Entered by Brenda Linder acting as a scribe for History of Present Illness General Chief complaint: Leg Weakness, Bilateral Stated complaint: UNKNOWN Time Seen by Provider: 07/24/18 16:54 Source: patient and family (Son) History of Present Illness Onset (ago): week(s) 1 Location: lower extremity Radiation: extremity (lower) Severity: similar to prior episodes Pain Consistency: + other (Persistent) Maximum Pain Intensity: 0 Quality: + other (Leg weakness) Relieved By: not by medication (Hydrocodone) Exacerbated By: + other (Hydrocodone) Associated symptoms: + weakness; no nausea/vomiting and no shortness of breath Treatments prior to arrival: other (Hydrocodone) The patient is a 73 year old male presenting to the Emergency Department complaining of persistent leg weakness starting 1 week ago. The patient reports that his legs are weak and he cannot walk any more than a few feet without a walker. He states that even with a walker, his legs have become too weak and that he has fallen. He explains that he has joint pain and lower back pain that radiates down to his legs. He notes that he has had trouble sleeping at night because of this pain. 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 The patient reports that while he was at [facility] he received an MRI and CT. He explains that he was supposed to receive a plasma transplant but did not end up receiving this plasma transplant. The patients son reports that the patient was supposed to be discharged to an inpatient rehabilitation center but that the patients insurance wouldnt pay for this so instead the patient had a in home physical therapist see him. He states that the patients in home physical therapist saw the patient and stated that the patient was too weak for physical therapy and needed to come to the hospital. The patients son notes that the patient recently saw his PCP who prescribed the patient Hydrocodone for his joint pain. He adds that the patient took Hydrocodone EMERGENCY DEPARTMENT PHYSICIAN that seemed to make the patient weaker. The patient denies shortness of breath, nausea, vomiting, cough and congestion. Home Medications Home Medications Medication Instructions Recorded Confirmed Type amlodipine [Norvasc] 10 mg PO QAM 11/27/17 07/24/18 History carvedilol [Coreg] 12.5 mg PO BID 11/27/17 07/24/18 History cholecalciferol (vitamin D3) 1,000 unit PO QAM 11/27/17 07/24/18 History [Vitamin D3] ferrous sulfate 325 mg PO BID 11/27/17 07/24/18 History hydralazine 100 mg PO TID 11/27/17 07/24/18 History paroxetine HCl [Paxil] 20 mg PO DAILY 11/27/17 07/24/18 History acetaminophen [Tylenol Extra 1,000 mg PO BID PRN 07/24/18 07/24/18 History Strength] aspirin [Aspir-81] 81 mg PO DAILY 07/24/18 07/24/18 History hydrocodone-acetaminophen [[place]] 1 tab PO Q6H PRN 07/24/18 07/24/18 History ranitidine HCl 150 mg PO BID 07/24/18 07/24/18 History torsemide 10 mg PO DAILY 07/24/18 07/24/18 History Allergies Allergy/AdvReac Type Severity Reaction Status Date / Time sitagliptin Allergy Unknown LIGHTHEADEDNESS Verified 07/24/18 18:43 AND PAINS IN UPPER STOMACH Past Med/Surg History Medical History Diabetes mellitus, type II (Chronic) Chronic renal failure, stage 4 (severe) (Chronic) HTN (hypertension) (Chronic) Depression (Chronic) Hyperlipidemia (Chronic) ANI (acute kidney injury) (Resolved) Anemia (Chronic) Hgb 6.8 on admission s/p 2 units PRBCs 11/2017 Anxiety (Chronic) Surgical History History of esophagogastroduodenoscopy (EGD) (Chronic) 11/28/2017: esophagitis, +H Pylori. Performed at [facility] History of cataract surgery (Chronic) S/P colonoscopy (Chronic) Family History Mother Breast cancer Diabetes Social History Preferred Language: Syriac Communication Ability: Effective Environmental Health Safety Engineer Required: No Beliefs That Will Affect Care: None Current Living Situation: Alone Other Information That Helps Us Care for You: No Feels Safe at Home: Yes Safety Concerns: Feels Safe At This Time Smoking Status: Former smoker Cigarettes Per Day: 2004 Do You Dip or Chew Tobacco: No Second Hand Exposure: No Tobacco Cessation Education Requested by Patient: No Hx Alcohol Use: Yes Alcohol type: beer Alcohol Intake Frequency Comment: 3-4 beers a week Hx Substance Use: No Review of Systems See HPI for pertinent positives & negatives. and A total of 10 systems reviewed and were otherwise negative Physical Exam Vital Signs Vital Signs - 24 hr 07/24/18 16:01 07/24/18 18:13 07/24/18 19:00 Temperature 36.6 C Temperature Source Oral Sepsis Recent Fever Within 48 Hours No Sepsis Action Taken by Nursing No Action Required Pulse Rate 97 H 90 87 Pulse Rate [Finger] Pulse Rate from SpO2 Sensor 87 89 Pulse Rhythm Regular Pulse Rhythm [Finger] Pulse Strength Normal Pulse Strength [Finger] Respiratory Rate 16 20 20 Respiratory Effort / Characteristics Non-Labored Respiratory Depth Normal Respiratory Pattern Regular Blood Pressure 101/55 L 160/69 H 160/73 H Blood Pressure [Left Arm] Blood Pressure [Right Arm] Blood Pressure Mean 70 99 102 Blood Pressure Mean [Left Arm] Blood Pressure Mean [Right Arm] Blood Pressure Position Sitting Blood Pressure Position [Left Arm] Pulse Oximetry 94 97 98 Pulse Oximetry [Left Index Finger] Oxygen Delivery Method Room Air Oxygen Delivery Method [Left Index Finger] 07/24/18 19:54 07/24/18 20:00 07/24/18 20:13 Temperature 36.4 C L 36.5 C 36.5 C Temperature Source Oral Oral Oral Sepsis Recent Fever Within 48 Hours Sepsis Action Taken by Nursing Pulse Rate 90 88 89 Pulse Rate [Finger] Pulse Rate from SpO2 Sensor Pulse Rhythm Regular Regular Regular Pulse Rhythm [Finger] Pulse Strength Normal Normal Normal Pulse Strength [Finger] Respiratory Rate 16 16 16 Respiratory Effort / Characteristics Non-Labored Respiratory Depth Normal Respiratory Pattern Regular Blood Pressure 168/80 H 163/76 H 143/104 H Blood Pressure [Left Arm] Blood Pressure [Right Arm] 161/80 H Blood Pressure Mean 109 105 117 Blood Pressure Mean [Left Arm] Blood Pressure Mean [Right Arm] 107 Blood Pressure Position Lying Lying Lying Blood Pressure Position [Left Arm] Pulse Oximetry 98 98 98 Pulse Oximetry [Left Index Finger] Oxygen Delivery Method Room Air Oxygen Delivery Method [Left Index Finger] 07/24/18 20:28 07/24/18 20:58 07/24/18 21:47 Temperature 36.5 C 36.6 C 36.5 C Temperature Source Oral Oral Oral Sepsis Recent Fever Within 48 Hours Sepsis Action Taken by Nursing Pulse Rate 88 87 Pulse Rate [Finger] 88 Pulse Rate from SpO2 Sensor Pulse Rhythm Pulse Rhythm [Finger] Regular Pulse Strength Pulse Strength [Finger] Normal Respiratory Rate 16 18 18 Respiratory Effort / Characteristics Non-Labored Respiratory Depth Normal Respiratory Pattern Blood Pressure 155/99 H 161/80 H Blood Pressure [Left Arm] 152/70 H Blood Pressure [Right Arm] Blood Pressure Mean 117 107 Blood Pressure Mean [Left Arm] 97 Blood Pressure Mean [Right Arm] Blood Pressure Position Blood Pressure Position [Left Arm] Lying Pulse Oximetry 98 97 100 Pulse Oximetry [Left Index Finger] 98 Oxygen Delivery Method Room Air Oxygen Delivery Method [Left Index Finger] Room Air 07/24/18 21:58 07/24/18 22:43 07/24/18 23:00 Temperature 36.4 C L 36.5 C 36.5 C Temperature Source Oral Oral Oral Sepsis Recent Fever Within 48 Hours Sepsis Action Taken by Nursing Pulse Rate 89 85 76 Pulse Rate [Finger] Pulse Rate from SpO2 Sensor Pulse Rhythm Regular Regular Regular Pulse Rhythm [Finger] Pulse Strength Normal Normal Pulse Strength [Finger] Respiratory Rate 16 18 18 Respiratory Effort / Characteristics Respiratory Depth Respiratory Pattern Blood Pressure 144/51 H 155/70 H 158/70 H Blood Pressure [Left Arm] Blood Pressure [Right Arm] Blood Pressure Mean 82 98 99 Blood Pressure Mean [Left Arm] Blood Pressure Mean [Right Arm] Blood Pressure Position Lying Lying Sitting Blood Pressure Position [Left Arm] Pulse Oximetry 98 100 100 Pulse Oximetry [Left Index Finger] Oxygen Delivery Method Oxygen Delivery Method [Left Index Finger] 07/24/18 23:15 07/24/18 23:30 07/25/18 00:00 Temperature Temperature Source Sepsis Recent Fever Within 48 Hours Sepsis Action Taken by Nursing Pulse Rate 75 78 Pulse Rate [Finger] Pulse Rate from SpO2 Sensor Pulse Rhythm Regular Regular Regular Pulse Rhythm [Finger] Pulse Strength Normal Normal Normal Pulse Strength [Finger] Respiratory Rate 16 18 16 Respiratory Effort / Characteristics Respiratory Depth Respiratory Pattern Blood Pressure 142/68 H 144/64 H 146/64 H Blood Pressure [Left Arm] Blood Pressure [Right Arm] Blood Pressure Mean 92 90 91 Blood Pressure Mean [Left Arm] Blood Pressure Mean [Right Arm] Blood Pressure Position Lying Lying Lying Blood Pressure Position [Left Arm] Pulse Oximetry 100 100 96 Pulse Oximetry [Left Index Finger] Oxygen Delivery Method Oxygen Delivery Method [Left Index Finger] 07/25/18 00:30 07/25/18 00:48 Temperature 36.5 C Temperature Source Oral Sepsis Recent Fever Within 48 Hours Sepsis Action Taken by Nursing Pulse Rate 78 80 Pulse Rate [Finger] Pulse Rate from SpO2 Sensor Pulse Rhythm Regular Regular Pulse Rhythm [Finger] Pulse Strength Normal Normal Pulse Strength [Finger] Respiratory Rate 18 18 Respiratory Effort / Characteristics Respiratory Depth Respiratory Pattern Blood Pressure 137/56 L 134/63 Blood Pressure [Left Arm] Blood Pressure [Right Arm] Blood Pressure Mean 83 86 Blood Pressure Mean [Left Arm] Blood Pressure Mean [Right Arm] Blood Pressure Position Lying Blood Pressure Position [Left Arm] Pulse Oximetry 93 95 Pulse Oximetry [Left Index Finger] Oxygen Delivery Method Oxygen Delivery Method [Left Index Finger] GENERAL: Awake, alert, pale appearing, no distress HENT: Normocephalic, atraumatic. TM's normal. Oropharynx with dry mucous membranes and otherwise unremarkable. EYES: PERRL. EOMI. Normal conjunctiva. Sclera non-icteric. NECK: Supple. No nuchal rigidity. FROM. No JVD or bruit. RESPIRATORY: CTA CARDIAC: RRR. No murmur. ABDOMEN: Soft, non distended. No tenderness to palpation. No rebound or guarding. No masses. RECTAL: Gross melena, guaiac positive. MUSCULOSKELETAL: Unremarkable. No edema. No discoloration NEURO: Cranial nerves 2-12 grossly intact. Normal sensorium. 5/5 strength BUE. No pronator drift. . 4/5 strength bilateral lower extremities. 1+ patellar reflexes. SKIN: No rash or jaundice noted. LYMPH: No adenopathy. Course 1654: EMR reviewed. The patient was admitted on 07/16/18 and discharged to [facility] for lower extremity weakness. The patient had a lumbar puncture at that time with an opening pressure of 10 and closing pressure of 8. The patient was diagnosed with Guillain-[place]erry [place]. 1793: The patient was evaluated in room B2, and a complete history and physical examination were performed. 1835: I discussed the patients case with Krista Garcia PA-C. Dr. Ervin Garcia hospitalist will evaluate the patient for further management. 1925: I discussed the patients case with Dr. Mueller at this time. Consultations Consultation #1: I discussed the patients case with Krista Garcia PA-C. Dr. Ervin Garcia hospitalist will evaluate the patient for further management. Time: 18:36 Administered Medications Acetaminophen (Tylenol) 650 mg PO Q4H PRN PRN Reason: Pain or Fever Stop: 08/23/18 21:46 Last Admin: 07/25/18 02:45 Dose: 650 mg Documented by: [id number] Carvedilol (Coreg) 12.5 mg PO BID [place] Stop: 08/23/18 20:59 Last Admin: 07/24/18 22:50 Dose: 12.5 mg Documented by: [id number] Hydralazine HCl (Apresoline) 100 mg PO TID [place] Stop: 08/23/18 20:59 Last Admin: 07/24/18 22:50 Dose: 100 mg Documented by: [id number] Pantoprazole Sodium 40 mg/ (Dextrose) 100 mls @ 20 mls/hr IV Q5H [place] Stop: 08/23/18 20:29 Last Admin: 07/25/18 02:42 Dose: 20 mls/hr Documented by: [id number] Infusion: 07/25/18 02:23 Dose: 20 mls/hr Documented by: [id number] Admin: 07/24/18 21:23 Dose: 20 mls/hr Documented by: [id number] Ranitidine HCl (Zantac) 150 mg PO BID [place] Stop: 08/23/18 20:59 Last Admin: 07/24/18 22:51 Dose: 150 mg Documented by: [id number] Discontinued Medications Famotidine (Pepcid 20mg Iv Push) 20 mg IV ONE STA Stop: 07/24/18 18:01 Last Admin: 07/24/18 18:14 Dose: 20 mg Documented by: [id number] Sodium Chloride (Nss) 500 mls @ 999 mls/hr IV .Q31M ONE Stop: 07/24/18 18:35 Last Infusion: 07/24/18 21:22 Dose: 0 mls/hr Documented by: [id number] Admin: 07/24/18 20:46 Dose: 999 mls/hr Documented by: [id number] Pantoprazole Sodium 80 mg/ (Dextrose) 120 mls @ 480 mls/hr IV NOW STA Stop: 07/24/18 20:31 Last Infusion: 07/24/18 21:22 Dose: 0 mls/hr Documented by: [id number] Admin: 07/24/18 20:55 Dose: 480 mls/hr Documented by: [id number] Insulin Aspart (Novolog Flexpen) 12 units SC NOW STA Stop: 07/24/18 20:55 Last Admin: 07/24/18 21:06 Dose: 12 units Documented by: [id number] Cosigned by: [id number] Medical Decision Making Differential Diagnosis Differential includes acute coronary syndrome, myocardial infarction, CVA, TIA, anemia, infection, pneumonia, UTI, pyelonephritis, poor nutrition, dehydration, electrolyte disturbance,hypoglycemia. Medical Records Attestation: I reviewed the patient's medical records. Home Medications Current Medication List: was personally reviewed by me Laboratory Data Attestation: I reviewed the patient's lab results. Result diagrams: 07/24/18 16:26 07/24/18 16:26 Lab Results 07/24/18 07/24/18 07/24/18 Range/Units 16:26 16:26 16:26 WBC 11.72 H (4.8-10.8) K/uL RBC 2.43 L (4.7-6.1) M/uL Hgb 7.3 L (14.0-18.0) g/dL Hct 21.0 L (42-52) % MCV 86.4 (80-100) fL MCH 30.0 (25-34) pg MCHC 34.8 (32-36) g/dL RDW Std Deviation 42.7 (36.4-46.3) fL RDW Coeff of Juma 13.3 (11.5-14.5) % Plt Count 189 (130-400) K/uL MPV 9.3 (7.4-10.4) fL Immature Gran % (Auto) 0.9 % Neut % (Auto) 77.4 % Lymph % (Auto) 11.4 % [place] % (Auto) 9.4 % Eos % (Auto) 0.7 % Baso % (Auto) 0.2 % Immature Gran # (Auto) 0.11 H (0.00-0.02) K/uL Neut # (Auto) 9.07 H (1.4-6.5) K/uL Lymph # (Auto) 1.34 (1.2-3.4) K/uL [place] # (Auto) 1.10 H (0.11-0.59) K/uL Eos # (Auto) 0.08 (0-0.5) K/uL Baso # (Auto) 0.02 (0-0.2) K/uL RBC Morphology Unremarkable PT (9.0-12.0) Seconds INR (0.9-1.1) Sodium 132 L (136-145) mmol/L Potassium 3.8 (3.5-5.1) mmol/L Chloride 100 (98-107) mmol/L Carbon Dioxide 20 L (21-32) mmol/L Anion Gap 13.0 H (3-11) BUN 113 H (7-18) mg/dl Creatinine 3.37 H (0.6-1.4) mg/dl Est Cr Clr Drug Dosing 20.5 ml/min Est GFR ( Amer) 19.7 Est GFR (Non-Af Amer) 17.0 BUN/Creatinine Ratio 33.5 H (10-20) Glucose 491 H* (70-99) mg/dl POC Glucose (70-99) Calcium 8.2 L (8.5-10.1) mg/dl Phosphorus (2.5-4.9) mg/dl Magnesium (1.8-2.4) mg/dl Total Bilirubin 0.4 (0.2-1) mg/dl AST 11 L (15-37) U/L ALT 25 (12-78) U/L Alkaline Phosphatase 123 H (45-117) U/L Total Creatine Kinase 92 Cancelled (39-308) U/L Total Protein 6.4 (6.4-8.2) gm/dl Albumin 3.0 L (3.4-5.0) gm/dl Globulin 3.4 (2.5-4.0) gm/dl Albumin/Globulin Ratio 0.9 (0.9-2) Beta-Hydroxybutyric Acd 1.71 (0.2-2.81) mg/dl TSH 1.050 (0.300-4.500) uIu/ml Urine Color Urine Appearance (Clear) Urine pH (4.5-7.5) Ur Specific [place] (1.000-1.030) Urine Protein (Negative) Urine Glucose (UA) (Negative) Urine Ketones (Negative) Urine Blood (Negative) Urine Nitrite (Negative) Urine Bilirubin (Negative) Urine Urobilinogen (Negative) Ur Leukocyte Esterase (Negative) Urine WBC (Auto) (0-5) /hpf Urine RBC (Auto) (0-4) /hpf U Hyaline Cast (Auto) (0-5) /lpf U Epithel Cells (Auto) (0-5) /lpf Urine Bacteria (Auto) (Negative) Blood Type Antibody Screen Crossmatch 07/24/18 07/24/18 07/24/18 Range/Units 16:26 17:51 17:51 WBC (4.8-10.8) K/uL RBC (4.7-6.1) M/uL Hgb (14.0-18.0) g/dL Hct (42-52) % MCV (80-100) fL MCH (25-34) pg MCHC (32-36) g/dL RDW Std Deviation (36.4-46.3) fL RDW Coeff of Juma (11.5-14.5) % Plt Count (130-400) K/uL MPV (7.4-10.4) fL Immature Gran % (Auto) % Neut % (Auto) % Lymph % (Auto) % [place] % (Auto) % Eos % (Auto) % Baso % (Auto) % Immature Gran # (Auto) (0.00-0.02) K/uL Neut # (Auto) (1.4-6.5) K/uL Lymph # (Auto) (1.2-3.4) K/uL [place] # (Auto) (0.11-0.59) K/uL Eos # (Auto) (0-0.5) K/uL Baso # (Auto) (0-0.2) K/uL RBC Morphology PT 10.2 (9.0-12.0) Seconds INR 1.0 (0.9-1.1) Sodium (136-145) mmol/L Potassium (3.5-5.1) mmol/L Chloride (98-107) mmol/L Carbon Dioxide (21-32) mmol/L Anion Gap (3-11) BUN (7-18) mg/dl Creatinine (0.6-1.4) mg/dl Est Cr Clr Drug Dosing ml/min Est GFR ( Amer) Est GFR (Non-Af Amer) BUN/Creatinine Ratio (10-20) Glucose (70-99) mg/dl POC Glucose (70-99) Calcium (8.5-10.1) mg/dl Phosphorus 4.1 (2.5-4.9) mg/dl Magnesium 2.5 H (1.8-2.4) mg/dl Total Bilirubin (0.2-1) mg/dl AST (15-37) U/L ALT (12-78) U/L Alkaline Phosphatase (45-117) U/L Total Creatine Kinase (39-308) U/L Total Protein (6.4-8.2) gm/dl Albumin (3.4-5.0) gm/dl Globulin (2.5-4.0) gm/dl Albumin/Globulin Ratio (0.9-2) Beta-Hydroxybutyric Acd (0.2-2.81) mg/dl TSH (0.300-4.500) uIu/ml Urine Color Urine Appearance (Clear) Urine pH (4.5-7.5) Ur Specific [place] (1.000-1.030) Urine Protein (Negative) Urine Glucose (UA) (Negative) Urine Ketones (Negative) Urine Blood (Negative) Urine Nitrite (Negative) Urine Bilirubin (Negative) Urine Urobilinogen (Negative) Ur Leukocyte Esterase (Negative) Urine WBC (Auto) (0-5) /hpf Urine RBC (Auto) (0-4) /hpf U Hyaline Cast (Auto) (0-5) /lpf U Epithel Cells (Auto) (0-5) /lpf Urine Bacteria (Auto) (Negative) Blood Type O Negative Antibody Screen NEGATIVE Crossmatch See Detail 07/24/18 07/24/18 07/24/18 Range/Units 18:00 20:53 22:42 WBC (4.8-10.8) K/uL RBC (4.7-6.1) M/uL Hgb (14.0-18.0) g/dL Hct (42-52) % MCV (80-100) fL MCH (25-34) pg MCHC (32-36) g/dL RDW Std Deviation (36.4-46.3) fL RDW Coeff of Juma (11.5-14.5) % Plt Count (130-400) K/uL MPV (7.4-10.4) fL Immature Gran % (Auto) % Neut % (Auto) % Lymph % (Auto) % [place] % (Auto) % Eos % (Auto) % Baso % (Auto) % Immature Gran # (Auto) (0.00-0.02) K/uL Neut # (Auto) (1.4-6.5) K/uL Lymph # (Auto) (1.2-3.4) K/uL [place] # (Auto) (0.11-0.59) K/uL Eos # (Auto) (0-0.5) K/uL Baso # (Auto) (0-0.2) K/uL RBC Morphology PT (9.0-12.0) Seconds INR (0.9-1.1) Sodium (136-145) mmol/L Potassium (3.5-5.1) mmol/L Chloride (98-107) mmol/L Carbon Dioxide (21-32) mmol/L Anion Gap (3-11) BUN (7-18) mg/dl Creatinine (0.6-1.4) mg/dl Est Cr Clr Drug Dosing ml/min Est GFR ( Amer) Est GFR (Non-Af Amer) BUN/Creatinine Ratio (10-20) Glucose (70-99) mg/dl POC Glucose 480 H* (70-99) Calcium (8.5-10.1) mg/dl Phosphorus (2.5-4.9) mg/dl Magnesium (1.8-2.4) mg/dl Total Bilirubin (0.2-1) mg/dl AST (15-37) U/L ALT (12-78) U/L Alkaline Phosphatase (45-117) U/L Total Creatine Kinase 100 (39-308) U/L Total Protein (6.4-8.2) gm/dl Albumin (3.4-5.0) gm/dl Globulin (2.5-4.0) gm/dl Albumin/Globulin Ratio (0.9-2) Beta-Hydroxybutyric Acd (0.2-2.81) mg/dl TSH (0.300-4.500) uIu/ml Urine Color Yellow Urine Appearance Clear (Clear) Urine pH 5.0 (4.5-7.5) Ur Specific [place] 1.020 (1.000-1.030) Urine Protein 1+ H (Negative) Urine Glucose (UA) 3+ H (Negative) Urine Ketones Negative (Negative) Urine Blood Negative (Negative) Urine Nitrite Negative (Negative) Urine Bilirubin Negative (Negative) Urine Urobilinogen Negative (Negative) Ur Leukocyte Esterase Negative (Negative) Urine WBC (Auto) 1-5 (0-5) /hpf Urine RBC (Auto) 0-4 (0-4) /hpf U Hyaline Cast (Auto) 1-5 (0-5) /lpf U Epithel Cells (Auto) 0-5 (0-5) /lpf Urine Bacteria (Auto) Negative (Negative) Blood Type Antibody Screen Crossmatch 07/25/18 Range/Units 00:14 WBC (4.8-10.8) K/uL RBC (4.7-6.1) M/uL Hgb (14.0-18.0) g/dL Hct (42-52) % MCV (80-100) fL MCH (25-34) pg MCHC (32-36) g/dL RDW Std Deviation (36.4-46.3) fL RDW Coeff of Juma (11.5-14.5) % Plt Count (130-400) K/uL MPV (7.4-10.4) fL Immature Gran % (Auto) % Neut % (Auto) % Lymph % (Auto) % [place] % (Auto) % Eos % (Auto) % Baso % (Auto) % Immature Gran # (Auto) (0.00-0.02) K/uL Neut # (Auto) (1.4-6.5) K/uL Lymph # (Auto) (1.2-3.4) K/uL [place] # (Auto) (0.11-0.59) K/uL Eos # (Auto) (0-0.5) K/uL Baso # (Auto) (0-0.2) K/uL RBC Morphology PT (9.0-12.0) Seconds INR (0.9-1.1) Sodium (136-145) mmol/L Potassium (3.5-5.1) mmol/L Chloride (98-107) mmol/L Carbon Dioxide (21-32) mmol/L Anion Gap (3-11) BUN (7-18) mg/dl Creatinine (0.6-1.4) mg/dl Est Cr Clr Drug Dosing ml/min Est GFR ( Amer) Est GFR (Non-Af Amer) BUN/Creatinine Ratio (10-20) Glucose (70-99) mg/dl POC Glucose 146 H (70-99) Calcium (8.5-10.1) mg/dl Phosphorus (2.5-4.9) mg/dl Magnesium (1.8-2.4) mg/dl Total Bilirubin (0.2-1) mg/dl AST (15-37) U/L ALT (12-78) U/L Alkaline Phosphatase (45-117) U/L Total Creatine Kinase (39-308) U/L Total Protein (6.4-8.2) gm/dl Albumin (3.4-5.0) gm/dl Globulin (2.5-4.0) gm/dl Albumin/Globulin Ratio (0.9-2) Beta-Hydroxybutyric Acd (0.2-2.81) mg/dl TSH (0.300-4.500) uIu/ml Urine Color Urine Appearance (Clear) Urine pH (4.5-7.5) Ur Specific [place] (1.000-1.030) Urine Protein (Negative) Urine Glucose (UA) (Negative) Urine Ketones (Negative) Urine Blood (Negative) Urine Nitrite (Negative) Urine Bilirubin (Negative) Urine Urobilinogen (Negative) Ur Leukocyte Esterase (Negative) Urine WBC (Auto) (0-5) /hpf Urine RBC (Auto) (0-4) /hpf U Hyaline Cast (Auto) (0-5) /lpf U Epithel Cells (Auto) (0-5) /lpf Urine Bacteria (Auto) (Negative) Blood Type Antibody Screen Crossmatch Imaging Data Radiologist's Impression: Radiology results as stated below per my review and the radiologist's interpretation: CT abd pelvis wo con CT DOSE: 363.54 mGy.cm HISTORY: melena, anemia TECHNIQUE: Multiaxial CT images of the abdomen and pelvis were performed without contrast. A dose lowering technique was utilized adhering to the principles of ALARA. COMPARISON STUDY: 07/13/2018 FINDINGS: Lung bases are grossly clear. Overall morphology of liver spleen and pancreas are unremarkable. Kidneys are negative for hydronephrosis. There is a 2 mm nonobstructing right renal cortical calcification. Bilateral adrenal hyperplastic change versus adenomas. No evidence for hydronephrosis. Nonobstructive bowel pattern. Chronic diverticulosis of the sigmoid. No evidence for acute diverticulitis. Rather significant distention of the bladder raising the possibility of bladder outlet obstruction. A penile infusion pump reservoir is identified in the left lower quadrant and is unchanged from the prior study. IMPRESSION: 1. Marked distention of the bladder raising the possibility of bladder outlet obstruction. 2. Otherwise no acute process of the abdomen or pelvis. 3. Chronic sigmoid diverticulosis. 4. Unchanging adrenal nodular/hypertrophic change. The above report was generated using voice recognition software. It may contain grammatical, syntax or spelling errors. Electronically signed by: Gennaro Lam M.D. 07/24/2018 9:50 PM ECG Data Attestation: I personally reviewed and interpreted this ECG as follows: Indication: weakness Rate (beats per minute): 91 Rhythm: normal sinus Findings: + other (Left anterior vesicular block.); no acute ischemic change Blood Pressure Blood Pressure Findings: Elevated blood pressure Blood Pressure Disposition: further management by hospitalist EMILEE Cheung The patient is a pleasant 73-year-old gentleman with a past medical history of CKD, hypertension who presents emergency department with persistent weakness after being admitted here on 07/16 subsequently transferred [facility] after lumbar puncture showed elevated protein with low WBC suggestive of Guyon Patino per hpi. Patient reports he continues to feel weak and unable to walk and so presents today. He reports he was not given plasmapheresis, the reason he was transferred. He is not quite sure what was done for him. Review of the [facility] medical record shows that neurology recommended 5 days of IVIG but we cannot confirm that this was provided particularly since the patient was only therefore 2-3 days. He does appear to have had EMG studies which showed evidence of peripheral neuropathy at the wrist and and elbow but did not show any evidence of myopathy but interprets that it is possible that may be too early to identify these given only 6 days of symptoms. It seems that it was suggested as well that the patient symptoms may be due to a myopathy from his st at[facility] so this was discontinued. On arrival the patient is fatigued appearing but no acute distress, afebrile with stable vital signs. He has 4/5 strength in bilateral lower extremities with 1+ patellar reflexes. No clonus. Normal tone. EKG unremarkable without evidence of acute ischemia. CXR negative. CBC 11.7, nonspecific. Hemoglobin is 7.3 which is down from 11 on 07/16. BUN is elevated at 113 increased from 70 on prior labs. Rectal exam demonstrates black stool is guaiac positive. Patient does report he takes iron but given his positive guaiac and his H/H decline findings are suggestive of upper GI bleed. Cr. 3.3 on higher end of patient's baseline range. Glucose 400s but without ketosis. Case was d/w Krista Chun, [facility] PAC, and Dr. Mueller, [facility] hospitalist who will evaluate the patient for admission. Of note, Dr. Mueller was further able to clarify patient's recent [place] hospitalization. Initial neurology note was done resident and did not clarify final recommendations of neurology team that they did not think the patient's presentation was c/w Guillian [place] given he has intact reflexes and so IVIg was deferred. Thus, reasonable to admit here for further management of likely upper GI bleed with symptomatic anemia. Patient ordered for 2 units PRBCs. Impression & Plan Upper GI bleed Critical Care Time I have personally spent greater than 75 minutes of critical care time in the direct management of this patient. This includes bedside care, interpretation of diagnostic studies, and testing, discussion with consultants, patient, and family members, and other required patient management activities. This 75 minutes is in excess of all separately billable procedures. Critical Care Time: Yes Total Critical Care Time: 75 Discharge Plan Visit Data *Final* Discharge Date/Time: 07/24/18 21:20 Chief Complaint: Leg Weakness, Bilateral Stated Complaint: UNKNOWN ED Provider: Mike Guerrero Discharge Problem: Upper GI bleed Patient Disposition: Admitted As Inpatient Discharge Instructions Interventions: ED Discharge Assessment Last Done: 07/24/18 21:20 The scribe's documentation has been prepared under my direction and personally reviewed by me in its entirety. I confirm that the note above accurately reflects all work, treatment, procedures, and medical decision making performed by me.
--- NOTE | 2018-07-24 20:04 | Communication Note ---
Date of Service: July 24, 2018 73 yo M presents to the ER with worsening leg weakness and difficulty walking. He was recently hospitalized at 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 A resident saw him and put a note in about a plan for IVIG, however, when the attending physician examined him, that was not the recommendation. 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 He was discharged on 07/18 and was still taking Lipitor until he presented for hospital follow-up to his PCP, who then stopped the lipitor. Although he reported doing well for a couple of days post- discharge, he then became acutely more weak. H/H has dropped 2-3 grams in this time, and clinical picture is consistent with a symptomatic anemia. I discussed the case with Dr. Sosa who is on for Neurology in [facility]. She recommended treating the anemia, and if no improvement, a repeat LP could be considered. If the CSF protein is the same (72) or lower, this would make GBS less likely. DO Ervin
[2018-07-24] MEDS ORDERED: PANTOprazole 80 MG in DEXTROSE 5% 100 ML IV STA (20:17)
--- NOTE | 2018-07-24 20:40 | History & Physical Report ---
Date of Service July 24, 2018 Assessment & Plan (1) Weakness: (2) Anemia: Patient presents with bilateral lower extremity weakness. Patient with history of recent hospitalization secondary to extremity weakness at [facility] on 07/13/[address] [facility] on 07/16 after concern for GBS. IVIG was not recommended during that hospitalization and EMG was not consistent with GBS and was thought secondary to statin-induced myopathy. It appears patient was discharged still on Lipitor, however PCP stopped Lipitor upon hospital follow-up. Today in ER patient afebrile, BP: 97, RR: 16, BP 105/55, 94% on room air. H/H: 7.3/21 (On 07/16/2018 was 11.5/32.6). CK: 92 DDX: Neurology related, symptomatic anemia -Possible GI bleed. Patient with noted dark stools and heme positive stool in ER -Transfuse PRBC -Monitor H&H -NPO -GI consult -Consider neurology consult (3) Hyperglycemia: (4) Diabetes mellitus, type II: Patient not currently on diabetes medications at home Glucose: 491. Beta hydroxybutyric acid: 1.7 in ER patient was given 12 units NovoLog SC A1c 7.0 on 07/14/2018 -NovoLog sliding scale per protocol with additional dose if needed at 00:00 and 04:00 -Monitor BSG's (5) HTN (hypertension): Stable -Hold torsemide and reevaluate tomorrow -Continue amlodipine, carvedilol, hydralazine -Monitor BP (6) Chronic renal failure, stage 4 (severe): Cr: 3.3. Recent baseline ~2.9 -Monitor renal functions -Avoid nephrotoxic agents when possible (7) Depression: -Continue paroxetine DVT Prophylaxis -SCDs with anemia Full Code as per discussion with pt Follows with Dr lucila Novoa for routine care Pt was seen with Dr Mueller. See addendum History of Present Illness Chief Complaint: Leg weakness Primary Care Provider: Lucila Novoa, DO Pt is 73 y/o M with PMH DM II, HTN, HLD, CKD IV, h/o hyperkalemia with LUCHO/ARB use presented to ER with c/o bilateral leg weakness. Patient with history of hospitalization at [facility] 07/13/2018-07/16/2018 for bilateral leg weakness. Had MRI Brain: No acute intracranial abnormality. Lumbar MRI:Moderate bone marrow edema about the left posterior lateral aspect of the L1 vertebral body associated with acute appearing Schmorl's node. Moderate soft tissue edema tracks along the left neuroforamen. No acute compression deformity. L3-L4 there is moderate central canal, mild to moderate right and moderate left foraminal narrowing. L4-L5 there is moderate to severe central canal with moderate to severe right and moderate left foraminal narrowing. Neck MRI:Normal cervical cord signal and caliber. Multilevel degenerative disc disease with posterior disc osteophyte complexes that contact the ventral aspect of the cord with mild to moderate multilevel central canal stenosis. Severe multilevel neural foraminal stenosis Throracic MRI: Severe degenerative disc change throughout the entire thoracic region. Multilevel bulging disc and posterior osteophyte complexes creating only minimal impact upon the anterior thoracic cord and neural foramina. No evidence for significant component of spinal or foraminal stenotic change. Had negative Lyme Screen. 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 During that hospitalization no IVIG was given. 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 Patient statin was placed on hold by PCP 07/22/2018. Patient states his been doing physical therapy at home as he did not qualify for inpatient rehab with his insurance. Patient reports he was doing okay and then over the past 2 days he started with tingling sensation to hip/thigh which radiates down both legs and is followed by leg weakness when he is ambulating. Patient states his been using a walker to ambulate and has had to falls yesterday and 2 falls today. Patient states they have been assisted falls and a family member has been there to help lower him to the ground. Denies hitting head, denies dizziness prior to falls. He reports he continues with numbness sensation to bilateral hands which has been unchanged. Denies any noted upper extremity weakness. Patient has not noticed any significant melena, he reports his stools are always a little dark secondary to iron supplement. Denies any epistaxis, hematuria, hematochezia. Pt states prior to onset of leg weakness on 07/13/18 he had a cough a week or two prior which had resolved. Denies fever/chills, diaphoresis, N/V/D/C, THAKKAR, dizziness, syncope, vision changes, neck pain, CP, SOB, orthopnea, palpitations, current cough, sore throat, choking, otalgia, rhinorrhea, abdominal pain, extremity edema, rashes, urinary symptoms. History EGD 11/2017: Distal esophagitis, mild erythematous mucosa without bleeding gastric antrum 2011 colonoscopy: Internal hemorrhoids, diverticulosis, 5 mm polyp sigmoid colon Allergies Allergy/AdvReac Type Severity Reaction Status Date / Time sitagliptin Allergy Unknown LIGHTHEADEDNESS Verified 07/24/18 18:43 AND PAINS IN UPPER STOMACH Home Medications Home Medications Medication Instructions Recorded Confirmed Type amlodipine [Norvasc] 10 mg PO QAM 11/27/17 07/24/18 History carvedilol [Coreg] 12.5 mg PO BID 11/27/17 07/24/18 History cholecalciferol (vitamin D3) 1,000 unit PO QAM 11/27/17 07/24/18 History [Vitamin D3] ferrous sulfate 325 mg PO BID 11/27/17 07/24/18 History hydralazine 100 mg PO TID 11/27/17 07/24/18 History paroxetine HCl [Paxil] 20 mg PO DAILY 11/27/17 07/24/18 History acetaminophen [Tylenol Extra 1,000 mg PO BID PRN 07/24/18 07/24/18 History Strength] aspirin [Aspir-81] 81 mg PO DAILY 07/24/18 07/24/18 History hydrocodone-acetaminophen [[place]one] 1 tab PO Q6H PRN 07/24/18 07/24/18 History ranitidine HCl 150 mg PO BID 07/24/18 07/24/18 History torsemide 10 mg PO DAILY 07/24/18 07/24/18 History Past Med/Surg History Medical History Diabetes mellitus, type II (Chronic) Chronic renal failure, stage 4 (severe) (Chronic) HTN (hypertension) (Chronic) Depression (Chronic) Hyperlipidemia (Chronic) ANI (acute kidney injury) (Resolved) Anemia (Chronic) Hgb 6.8 on admission s/p 2 units PRBCs 11/2017 Anxiety (Chronic) Surgical History History of esophagogastroduodenoscopy (EGD) (Chronic) 11/28/2017: esophagitis, +H Pylori. Performed at [facility] History of cataract surgery (Chronic) S/P colonoscopy (Chronic) Family History Mother Breast cancer Diabetes Social History Preferred Language: Pashto Communication Ability: Effective Side Panel Hanger Required: No Beliefs That Will Affect Care: None marital status: / Current Living Situation: Alone Other Information That Helps Us Care for You: No Feels Safe at Home: Yes Safety Concerns: Feels Safe At This Time Smoking Status: Former smoker Cigarettes Per Day: 2004 Do You Dip or Chew Tobacco: No Second Hand Exposure: No Tobacco Cessation Education Requested by Patient: No Hx Alcohol Use: Yes Alcohol type: beer Alcohol Intake Frequency Comment: 3-4 beers a week Hx Substance Use: No Review of Systems Review of Systems: All systems reviewed & are unremarkable except as noted in HPI & below Physical Exam Physical Exam: General: no distress, WDWN Head: normocephalic, atraumatic Eyes: PERRL, EOM's intact, conjunctiva non-injected, anicteric ENT: normal inspection external ears, nose, mucous membranes moist Neck: supple, trachea midline Lungs: clear, no respiratory distress, no wheezing/rhonchi/rales CV: RRR, no murmur, no JVD, no pretibial edema Chest: Left lower anterior ribs with green color ecchymosis without any tenderness to palpation Back: No tenderness to palpation Abd: normal BS, soft, non-tender Ext: no cyanosis, no calf tenderness; upper extremities with equal strength bilaterally; strength testing of lower extremities while patient supine in bed does not elicit one-sided weakness, hyporeflexic patellar reflex Neuro: A&O x 3, no other focal deficits noted, normal affect Skin: warm, dry, multiple ecchymosis noted to bilateral arms and legs Results & Data Vital Signs (Past 12 Hours) Vital Signs Temp Pulse Resp BP Pulse Ox 07/24/18 20:13 36.5 C 89 16 143/104 H 98 07/24/18 20:00 36.4 C L 88 14 163/76 H 97 07/24/18 19:54 36.4 C L 90 16 168/80 H 98 07/24/18 19:00 87 20 160/73 H 98 07/24/18 18:13 90 20 160/69 H 97 07/24/18 16:01 36.6 C 97 H 16 101/55 L 94 Laboratory Results Short CBC 07/24/18 07/24/18 07/24/18 Range/Units 16:26 16:26 16:26 WBC 11.72 H (4.8-10.8) K/uL Hgb 7.3 L (14.0-18.0) g/dL Hct 21.0 L (42-52) % Plt Count 189 (130-400) K/uL Glucose 491 H* (70-99) mg/dl POC Glucose (70-99) Alkaline Phosphatase 123 H (45-117) U/L Total Creatine Kinase 92 Cancelled (39-308) U/L 07/24/18 Range/Units 20:53 WBC (4.8-10.8) K/uL Hgb (14.0-18.0) g/dL Hct (42-52) % Plt Count (130-400) K/uL Glucose (70-99) mg/dl POC Glucose 480 H* (70-99) Alkaline Phosphatase (45-117) U/L Total Creatine Kinase (39-308) U/L BMP 07/24/18 16:26 Sodium 132 L Potassium 3.8 Chloride 100 Carbon Dioxide 20 L BUN 113 H Creatinine 3.37 H Glucose 491 H* Calcium 8.2 L Cardiac Enzymes 07/24/18 07/24/18 Range/Units 16:26 16:26 Total Creatine Kinase 92 Cancelled (39-308) U/L Liver Function 07/24/18 Range/Units 16:26 Total Bilirubin 0.4 (0.2-1) mg/dl AST 11 L (15-37) U/L ALT 25 (12-78) U/L Alkaline Phosphatase 123 H (45-117) U/L Albumin 3.0 L (3.4-5.0) gm/dl Urine 07/24/18 Range/Units 18:00 Urine Color Yellow Urine Appearance Clear (Clear) Urine pH 5.0 (4.5-7.5) Ur Specific [place] 1.020 (1.000-1.030) Urine Protein 1+ H (Negative) Urine Glucose (UA) 3+ H (Negative) Supervising Physician Co-Signing Physician Notes I have seen and examined the patient and have discussed the case with the provider above. I agree with the assessment and plan as stated. DO Ervin (1) Diabetes mellitus, type II Diabetes mellitus complication status: without complication Diabetes mellitus emt intermediate insulin use: unspecified emt intermediate insulin use status Qualified Code(s): E11.9 - Type 2 diabetes mellitus without complications
[2018-07-24] MEDS ORDERED: INSULIN ASPART 100 UNITS/ML 3 ML PEN SC STA (20:54)
[2018-07-24] MEDS: PANTOprazole 40 MG in DEXTROSE 5% 100 ML IV SCH (21:23)
[2018-07-24] MEDS ORDERED: GLUCOSE 10 TABS/TUBE PO PRN (21:47)
[2018-07-24] MEDS ORDERED: SODIUM CHLORIDE 0.9% 1000ML 1,000 ML IV SCH (21:47)
[2018-07-24] MEDS ORDERED: DEXTROSE 50% 50 ML SYRINGE IV PRN (21:47)
[2018-07-24] MEDS ORDERED: GLUCOSE 40% GEL 15 GM TUBE PO PRN (21:47)
[2018-07-24] MEDS ORDERED: GLUCAGON FOR INJ 1 MG VIAL SQ PRN (21:47)
[2018-07-24] MEDS ORDERED: CARBOHYDRATES FOR HYPOGLYCEMIA PO PRN (21:47)
[2018-07-24] MEDS ORDERED: ACETAMINOPHEN 325 MG TAB PO PRN (21:47)
--- NOTE | 2018-07-24 21:52 | CT Scan Report ---
CT abd pelvis wo con CT DOSE: 363.54 mGy.cm HISTORY: melena, anemia TECHNIQUE: Multiaxial CT images of the abdomen and pelvis were performed without contrast. A dose lo wering technique was utilized adhering to the principles of ALARA. COMPARISON STUDY: 07/13/2018 FINDINGS: Lung bases are grossly clear. Overall morphology of liver spleen and pancreas are unremarka ble. Kidneys are negative for hydronephrosis. There is a 2 mm nonobstructing right renal cortical calcific ation. Bilateral adrenal hyperplastic change versus adenomas. No evidence for hydronephrosis. Nonobstructive bowel pattern. Chronic diverticulosis of the sigmoid. No evidence for acute diverticul itis. Rather significant distention of the bladder raising the possibility of bladder outlet obstruction. A penile infusion pump reservoir is identified in the left lower quadrant and is unchanged from the pr ior study. IMPRESSION: 1. Marked distention of the bladder raising the possibility of bladder outlet obstruction. 2. Otherwise no acute process of the abdomen or pelvis. 3. Chronic sigmoid diverticulosis. 4. Unchanging adrenal nodular/hypertrophic change. The above report was generated using voice recognition software. It may contain grammatical, syntax or spelling errors. Electronically signed by: Gennaro Lam M.D. 07/24/2018 9:50 PM
[2018-07-24] MEDS: HydrALAZINE TAB 50 MG TAB PO SCH (22:50)
[2018-07-24] MEDS: CARVEDILOL 12.5 MG TAB PO SCH (22:50)
[2018-07-25] MEDS: PANTOprazole 40 MG in DEXTROSE 5% 100 ML IV SCH ×2 (02:42→07:42)
[2018-07-25 06:04] LABS: Hemoglobin 9.8 g/dL (14.0-18.0); Mean Corpuscular Hgb Conc 36.3 g/dL (32-36); Mean Corpuscular Volume 82.8 fL (80-100); Platelet Count 183 K/uL (130-400); RDW Coefficient of Variation 13.1 % (11.5-14.5); RDW Standard Deviation 39.8 fL (36.4-46.3); Red Blood Count 3.26 M/uL (4.7-6.1); White Blood Count 13.37 K/uL (4.8-10.8)
[2018-07-25 06:41] LABS: Calcium 8.4 mg/dl (8.5-10.1); Est GFR (African American) 25.1; Est GFR (Non-African American) 21.6; Potassium 3.5 mmol/L (3.5-5.1)
[2018-07-25] MEDS: INSULIN ASPART 100 UNITS/ML 3 ML PEN SC SCH ×4 (07:43→20:39)
[2018-07-25] MEDS: AMLODIPINE BESYLATE 5 MG TAB PO SCH (08:01)
[2018-07-25] MEDS: CARVEDILOL 12.5 MG TAB PO SCH ×2 (08:01→20:40)
[2018-07-25] MEDS: PARoxetine HCl 20 MG TAB PO SCH (08:02)
[2018-07-25] MEDS: HydrALAZINE TAB 50 MG TAB PO SCH ×3 (08:02→20:40)
[2018-07-25] MEDS: CHOLECALCIFEROL 1,000 UNITS TAB PO SCH (08:02)
[2018-07-25] MEDS: FERROUS SULFATE 325 MG TAB PO SCH ×2 (08:02→16:59)
[2018-07-25] MEDS ORDERED: HYDROCODONE/ACETAMOPHEN 5/325MG TAB PO ONE (11:04)
--- NOTE | 2018-07-25 12:30 | Gastrointestinal Consultation ---
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 Upon eval noted to have acute drop in his blood ct. He does have CKD, no other signs of gross bleeding, hematuria. Noted he did have worsening anemia, coffee ground emesis last November, and had EGD eval w findings of esophagitis and Hpylori infection that's treated. ED notes mentioned findings of melena and fecal occult positive study on rectal exam but RN and pt noted stools have been dark brown and hard, pellet like. He hasn't had any n/v, hematemesis or coffee ground emesis either. - Will defer repeat EGD - DC PPI gtt, continue Protonix 40mg IV BID - OK to start [place] diet, advance as tolerated - Will discuss w Dr. Rubio to consider repeat colonoscopy to r/o occult malignancy or source of LGIB since pt's last colonoscopy was done in 2016 (tubular adenoma polyp, diverticulosis). - Monitor H/H and transfuse prn - Consider obtaining repeat iron studies, FA, B12 levels for further anemia workup. Supervising Physician Co-Signing Physician Notes I have personally seen and examined the patient with BROOK Darden. Her note reflects my exam and findings. I agree with her impression and plan. No indication for repeat EGD at this time. Will arrange colonoscopy. Jose E Rubio M.D. History of Present Illness Reason for Consultation: Acute drop in Hgb Requesting Physician: Dr. Katie Hinson Attending Physician: Dr. Jose E Rubio. History of Present Illness Pt is a 73 y/o male w PMHx as noted below who presented to ED yesterday w progressive weakness. 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 Pt's son noted that pt was initially improving with home PT, but then within last few weeks, have been having progressive leg weakness and difficulty ambulating. Upon evaluation, labs notable for acute drop in his Hgb from baseline around 10 to 7. He was given 2U PRBC transfusion last night and Hgb up to 9.8 now. Pt has known CKD. He denies being on any anticoagulants at home. He also denies any open, bleeding wounds, RN notes no signs of hematomas. No hematuria. He has known hemorrhoids and has occasional hematochezia but none recently. Upon chart review pt did have have similar drop in Hgb back Nov 2017 and was having coffee ground emesis. At that time underwent EGD eval by Dr. Adams, found to have esophagitis and Hpylori infection. He was prescribed Hpylori treatment with PPI, Flagyl, Tetracycline and Bismuth and remembers completing them. He denies having any more coffee ground emesis symptoms. Stool have been hard to pass, "pellet like", dark brown. He's on narcotics and ferrous sulfate. Hi last colonoscopy was in 2017 - tubular adenoma polyps and diverticulosis. Allergies Allergy/AdvReac Type Severity Reaction Status Date / Time sitagliptin Allergy Unknown LIGHTHEADEDNESS Verified 07/24/18 18:43 AND PAINS IN UPPER STOMACH Home Medications Home Medications Medication Instructions Recorded Confirmed Type amlodipine [Norvasc] 10 mg PO QAM 11/27/17 07/24/18 History carvedilol [Coreg] 12.5 mg PO BID 11/27/17 07/24/18 History cholecalciferol (vitamin D3) 1,000 unit PO QAM 11/27/17 07/24/18 History [Vitamin D3] ferrous sulfate 325 mg PO BID 11/27/17 07/24/18 History hydralazine 100 mg PO TID 11/27/17 07/24/18 History paroxetine HCl [Paxil] 20 mg PO DAILY 11/27/17 07/24/18 History acetaminophen [Tylenol Extra 1,000 mg PO BID PRN 07/24/18 07/24/18 History Strength] aspirin [Aspir-81] 81 mg PO DAILY 07/24/18 07/24/18 History hydrocodone-acetaminophen [[place]] 1 tab PO Q6H PRN 07/24/18 07/24/18 History ranitidine HCl 150 mg PO BID 07/24/18 07/24/18 History torsemide 10 mg PO DAILY 07/24/18 07/24/18 History Patient History Medical History Diabetes mellitus, type II (Chronic) Chronic renal failure, stage 4 (severe) (Chronic) HTN (hypertension) (Chronic) Depression (Chronic) Hyperlipidemia (Chronic) ANI (acute kidney injury) (Resolved) Anemia (Chronic) Hgb 6.8 on admission s/p 2 units PRBCs 11/2017 Anxiety (Chronic) Surgical History History of esophagogastroduodenoscopy (EGD) (Chronic) 11/28/2017: esophagitis, +H Pylori. 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 Beliefs That Will Affect Care: None Current Living Situation: Alone Other Information That Helps Us Care for You: No Feels Safe at Home: Yes Safety Concerns: Feels Safe At This Time Smoking Status: Former smoker Cigarettes Per Day: 2004 Do You Dip or Chew Tobacco: No Second Hand Exposure: No Tobacco Cessation Education Requested by Patient: No Hx Alcohol Use: Yes Alcohol type: beer Alcohol Intake Frequency Comment: 3-4 beers a week Hx Substance Use: No Review of Systems Review of Systems: All systems reviewed & are unremarkable except as noted in HPI & below Physical Exam Constitutional: WD/WN, vitals as above well groomed, cooperative and comfortable Eyes: PERRL, conjunctivae normal, anicteric sclerae ENMT: external ear and nose normal, oropharynx normal Respiratory: normal respiratory effort, lungs clear to auscultation Cardiovascular: RRR, no murmur, no edema Gastrointestinal (Abdomen): normal bowel sounds, soft, nontender, no hepatosplenomegaly Skin: no rashes, warm and dry no jaundice Neurologic: Motor/Sensory: no asterixis Psychiatric: A+Ox3, euthymic affect Lymphatic: no lymphedema Results & Data Vital Signs (Past 12 Hours) Vital Signs Temp Pulse Pulse Resp BP BP Pulse Ox 07/25/18 11:11 36.5 C 88 20 136/67 99 07/25/18 07:37 36.5 C 95 H 20 155/79 H 98 07/25/18 06:20 87 07/25/18 02:39 36.4 C L 84 20 151/74 H 99 07/25/18 01:08 36.4 C L 80 20 134/63 99 07/25/18 00:48 36.5 C 80 18 134/63 95 07/25/18 00:30 78 18 137/56 L 93 Laboratory Results Laboratory Results - last 72 hr 07/24/18 07/24/18 07/24/18 16:26 16:26 16:26 WBC 11.72 H RBC 2.43 L Hgb 7.3 L Hct 21.0 L MCV 86.4 MCH 30.0 MCHC 34.8 RDW Std Deviation 42.7 RDW Coeff of Juma 13.3 Plt Count 189 MPV 9.3 Immature Gran % (Auto) 0.9 Neut % (Auto) 77.4 Lymph % (Auto) 11.4 [place] % (Auto) 9.4 Eos % (Auto) 0.7 Baso % (Auto) 0.2 Immature Gran # (Auto) 0.11 H Neut # (Auto) 9.07 H Lymph # (Auto) 1.34 [place] # (Auto) 1.10 H Eos # (Auto) 0.08 Baso # (Auto) 0.02 RBC Morphology Unremarkable PT INR Sodium 132 L Potassium 3.8 Chloride 100 Carbon Dioxide 20 L Anion Gap 13.0 H BUN 113 H Creatinine 3.37 H Est Cr Clr Drug Dosing 20.5 Est GFR ( Amer) 19.7 Est GFR (Non-Af Amer) 17.0 BUN/Creatinine Ratio 33.5 H Glucose 491 H* POC Glucose Calcium 8.2 L Phosphorus Magnesium Total Bilirubin 0.4 AST 11 L ALT 25 Alkaline Phosphatase 123 H Total Creatine Kinase 92 Cancelled Total Protein 6.4 Albumin 3.0 L Globulin 3.4 Albumin/Globulin Ratio 0.9 Beta-Hydroxybutyric Acd 1.71 TSH 1.050 Urine Color Urine Appearance Urine pH Ur Specific [place] Urine Protein Urine Glucose (UA) Urine Ketones Urine Blood Urine Nitrite Urine Bilirubin Urine Urobilinogen Ur Leukocyte Esterase Urine WBC (Auto) Urine RBC (Auto) U Hyaline Cast (Auto) U Epithel Cells (Auto) Urine Bacteria (Auto) Blood Type Antibody Screen Crossmatch 07/24/18 07/24/18 07/24/18 16:26 17:51 17:51 WBC RBC Hgb Hct MCV MCH MCHC RDW Std Deviation RDW Coeff of Juma Plt Count MPV Immature Gran % (Auto) Neut % (Auto) Lymph % (Auto) [place] % (Auto) Eos % (Auto) Baso % (Auto) Immature Gran # (Auto) Neut # (Auto) Lymph # (Auto) [place] # (Auto) Eos # (Auto) Baso # (Auto) RBC Morphology PT 10.2 INR 1.0 Sodium Potassium Chloride Carbon Dioxide Anion Gap BUN Creatinine Est Cr Clr Drug Dosing Est GFR ( Amer) Est GFR (Non-Af Amer) BUN/Creatinine Ratio Glucose POC Glucose Calcium Phosphorus 4.1 Magnesium 2.5 H Total Bilirubin AST ALT Alkaline Phosphatase Total Creatine Kinase Total Protein Albumin Globulin Albumin/Globulin Ratio Beta-Hydroxybutyric Acd TSH Urine Color Urine Appearance Urine pH Ur Specific [place] Urine Protein Urine Glucose (UA) Urine Ketones Urine Blood Urine Nitrite Urine Bilirubin Urine Urobilinogen Ur Leukocyte Esterase Urine WBC (Auto) Urine RBC (Auto) U Hyaline Cast (Auto) U Epithel Cells (Auto) Urine Bacteria (Auto) Blood Type O Negative Antibody Screen NEGATIVE Crossmatch See Detail 07/24/18 07/24/18 07/24/18 18:00 20:53 22:42 WBC RBC Hgb Hct MCV MCH MCHC RDW Std Deviation RDW Coeff of Juma Plt Count MPV Immature Gran % (Auto) Neut % (Auto) Lymph % (Auto) [place] % (Auto) Eos % (Auto) Baso % (Auto) Immature Gran # (Auto) Neut # (Auto) Lymph # (Auto) [place] # (Auto) Eos # (Auto) Baso # (Auto) RBC Morphology PT INR Sodium Potassium Chloride Carbon Dioxide Anion Gap BUN Creatinine Est Cr Clr Drug Dosing Est GFR ( Amer) Est GFR (Non-Af Amer) BUN/Creatinine Ratio Glucose POC Glucose 480 H* Calcium Phosphorus Magnesium Total Bilirubin AST ALT Alkaline Phosphatase Total Creatine Kinase 100 Total Protein Albumin Globulin Albumin/Globulin Ratio Beta-Hydroxybutyric Acd TSH Urine Color Yellow Urine Appearance Clear Urine pH 5.[address] [place] 1.020 Urine Protein 1+ H Urine Glucose (UA) 3+ H Urine Ketones Negative Urine Blood Negative Urine Nitrite Negative Urine Bilirubin Negative Urine Urobilinogen Negative Ur Leukocyte Esterase Negative Urine WBC (Auto) 1-5 Urine RBC (Auto) 0-4 U Hyaline Cast (Auto) 1-5 U Epithel Cells (Auto) 0-5 Urine Bacteria (Auto) Negative Blood Type Antibody Screen Crossmatch 07/25/18 07/25/18 07/25/18 00:14 05:41 05:41 WBC 13.37 H RBC 3.26 L Hgb 9.8 L Hct 27.0 L MCV 82.8 MCH 30.1 MCHC 36.3 H RDW Std Deviation 39.8 RDW Coeff of Juma 13.1 Plt Count 183 MPV 10.0 Immature Gran % (Auto) Neut % (Auto) Lymph % (Auto) [place] % (Auto) Eos % (Auto) Baso % (Auto) Immature Gran # (Auto) Neut # (Auto) Lymph # (Auto) [place] # (Auto) Eos # (Auto) Baso # (Auto) RBC Morphology PT INR Sodium 135 L Potassium 3.5 Chloride 105 Carbon Dioxide 21 Anion Gap 9.0 BUN 97 H Creatinine 2.76 H D Est Cr Clr Drug Dosing 25.0 Est GFR ( Amer) 25.1 Est GFR (Non-Af Amer) 21.6 BUN/Creatinine Ratio 35.0 H Glucose 226 H POC Glucose 146 H Calcium 8.4 L Phosphorus Magnesium Total Bilirubin AST ALT Alkaline Phosphatase Total Creatine Kinase Total Protein Albumin Globulin Albumin/Globulin Ratio Beta-Hydroxybutyric Acd TSH Urine Color Urine Appearance Urine pH Ur Specific [place] Urine Protein Urine Glucose (UA) Urine Ketones Urine Blood Urine Nitrite Urine Bilirubin Urine Urobilinogen Ur Leukocyte Esterase Urine WBC (Auto) Urine RBC (Auto) U Hyaline Cast (Auto) U Epithel Cells (Auto) Urine Bacteria (Auto) Blood Type Antibody Screen Crossmatch 07/25/18 07/25/18 07/25/18 06:18 07:16 11:08 WBC RBC Hgb Hct MCV MCH MCHC RDW Std Deviation RDW Coeff of Juma Plt Count MPV Immature Gran % (Auto) Neut % (Auto) Lymph % (Auto) [place] % (Auto) Eos % (Auto) Baso % (Auto) Immature Gran # (Auto) Neut # (Auto) Lymph # (Auto) [place] # (Auto) Eos # (Auto) Baso # (Auto) RBC Morphology PT INR Sodium Potassium Chloride Carbon Dioxide Anion Gap BUN Creatinine Est Cr Clr Drug Dosing Est GFR ( Amer) Est GFR (Non-Af Amer) BUN/Creatinine Ratio Glucose POC Glucose 250 H 249 H 271 H Calcium Phosphorus Magnesium Total Bilirubin AST ALT Alkaline Phosphatase Total Creatine Kinase Total Protein Albumin Globulin Albumin/Globulin Ratio Beta-Hydroxybutyric Acd TSH Urine Color Urine Appearance Urine pH Ur Specific [place] Urine Protein Urine Glucose (UA) Urine Ketones Urine Blood Urine Nitrite Urine Bilirubin Urine Urobilinogen Ur Leukocyte Esterase Urine WBC (Auto) Urine RBC (Auto) U Hyaline Cast (Auto) U Epithel Cells (Auto) Urine Bacteria (Auto) Blood Type Antibody Screen Crossmatch Diagnostic Findings CT abd/pelvis w/o contrast: 1. Marked distention of the bladder raising the possibility of bladder outlet obstruction. 2. Otherwise no acute process of the abdomen or pelvis. 3. Chronic sigmoid diverticulosis. 4. Unchanging adrenal nodular/hypertrophic change.
--- NOTE | 2018-07-25 15:09 | Hospitalist Progress Note ---
Date of Service July 25, 2018 Assessment & Plan (1) Weakness: BILATERAL LOWER EXTREMITY WEAKNESS Patient with history of recent hospitalization secondary to extremity weakness at [facility] on 07/13/[address] [facility] on 07/16 after concern for GBS. IVIG was not recommended during that hospitalization and EMG was not consistent with GBS and was thought secondary to possible statin-induced myopathy ?. It appears patient was discharged still on Lipitor, however PCP stopped Lipitor upon hospital follow-up. C/O Bilateral lower extremity weakness/arm weaknessepisodic as during last hospitalization -Continues to have bilateral lower extremity weakness especially when he tries to walk. No focal neurological deficits on exam. No associated symptoms/signs -Last admission few weeks ago-MRI brain, cervical spine MRI, lumbar spine MRI, CT head, CT abdomen/pelvis, renal ultrasound, chest x-ray was done. Did not reveal any acute abnormalities -Requiring assistance from 3 RNs to walk -Consulted neurology- discussed case with them. Will evaluate tomorrow. Will hold off on further testing (2) Anemia: ACUTE BLOOD LOSS ANEMIA Possibly generalized weakness. No focal deficits on neurological exam. Symptomatic anemia- S/P 2 units PRBCs for HB 7.3 on admission, now up to 9s with no overt signs of bleeding -Patient with noted dark stools and heme positive stool in ER -Discussed with GI---> Considering colonoscopy in AM (EGD in 12/04- Esophagitis, H pylori-rxed) -Monitor H & H -Full liquid per GI -S/P IV Protonix drip---> IV Protonix BID now - (3) Hyperglycemia: (4) Diabetes mellitus, type II: Patient not currently on diabetes medications at home Glucose: 491. Beta hydroxybutyric acid: 1.7 in ER patient was given 12 units NovoLog SC A1c 7.0 on 07/14/2018 -NovoLog sliding scale per protocol -Will start lantus 6 units daily and cover for blood sugar in 300s now -Monitor BSG's (5) HTN (hypertension): Stable -Held torsemide on admission- creatinine improved a bit. Continue to hold -Continue amlodipine, carvedilol, hydralazine -Monitor BP (6) Chronic renal failure, stage 4 (severe): Cr: 3.3. Recent baseline ~2.9 -Monitor renal functions -Avoid nephrotoxic agents when possible (7) Depression: -Continue paroxetine DVT Prophylaxis -SCDs with anemia Full Code as per discussion with pt DISPOSITION Medical mx in progress PT/OT ordered Follows with Dr lucila Novoa for routine care Subjective Patient is complaining of bilateral lower extremity weakness especially when he tries to walk. Does feel like his legs are numb and similarly with his arms as well. Denies any headaches, nausea, vomiting, fever, chill, shoulder, neck pain Required assistance from 3 nurses to walk to the bathroom Physical Exam Physical Exam: Constitutional WD/WN, vitals as above well groomed, cooperative and comfortable Eyes PERRL, conjunctivae normal, anicteric sclerae ENMT external ear and nose normal, oropharynx normal Respiratory normal respiratory effort, lungs clear to auscultation Cardiovascular RRR, no murmur, no edema Gastrointestinal (Abdomen) normal bowel sounds, soft, nontender, no hepatosplenomegaly Skin no rashes, warm and dry no jaundice Neurologic Cranial nerves intact, power5/5 all extremities, sensory normal Psychiatric AAOx3, euthymic affect Lymphatic no lymphedema Results & Data Vital Signs (Past 12 Hours) Vital Signs Temp Pulse Pulse Resp BP Pulse Ox 07/25/18 11:11 36.5 C 88 20 136/67 99 07/25/18 07:37 36.5 C 95 H 20 155/79 H 98 07/25/18 06:20 87 (1) Diabetes mellitus, type II Diabetes mellitus complication status: without complication Diabetes mellitus care home insulin use: unspecified long chain beamer insulin use status Qualified Code(s): E11.9 - Type 2 diabetes mellitus without complications
[2018-07-25] MEDS ORDERED: LANTUS PER UNIT CHARGE SQ STA (16:34)
[2018-07-25] MEDS ORDERED: INSULIN ASPART 100 UNITS/ML 3 ML PEN SC ONE (16:39)
[2018-07-25] MEDS: PANTOprazole 40 MG in SYRINGE 0 ML IV SCH (20:39)
[2018-07-26] MEDS: HYDROCODONE/ACETAMOPHEN 5/325MG TAB PO PRN ×2 (05:34→21:19)
[2018-07-26 06:49] LABS: Basophils # (auto) 0.02 K/uL (0-0.2); Basophils % (auto) 0.1 %; Eosinophils # (auto) 0.24 K/uL (0-0.5); Eosinophils % (auto) 1.8 %; Hematocrit (blood only) 28.4 % (42-52); Immature Granulocytes # (auto) 0.14 K/uL (0.00-0.02); Lymphocytes # (auto) 1.27 K/uL (1.2-3.4); Lymphocytes % (auto) 9.3 %; Mean Corpuscular Hgb Conc 35.2 g/dL (32-36); Monocytes # (auto) 1.18 K/uL (0.11-0.59); Monocytes % (auto) 8.6 %; Neutrophils # (auto) 10.84 K/uL (1.4-6.5); Neutrophils % (auto) 79.2 %; Platelet Count 196 K/uL (130-400); RDW Coefficient of Variation 13.5 % (11.5-14.5); RDW Standard Deviation 41.8 fL (36.4-46.3); Red Blood Count 3.34 M/uL (4.7-6.1); White Blood Count 13.69 K/uL (4.8-10.8)
[2018-07-26 07:21] LABS: BUN Creatinine Ratio 31.6 (10-20); Calcium 8.2 mg/dl (8.5-10.1); Creatinine Clr Calc Pharmacy 25.4 ml/min; Est GFR (African American) 26.6; Est GFR (Non-African American) 22.9; Potassium 3.5 mmol/L (3.5-5.1)
[2018-07-26 07:23] LABS: C Reactive Protein 0.36 mg/dl (0-0.29)
[2018-07-26] MEDS: FERROUS SULFATE 325 MG TAB PO SCH ×2 (08:06→17:06)
[2018-07-26] MEDS: AMLODIPINE BESYLATE 5 MG TAB PO SCH (08:07)
[2018-07-26] MEDS: CHOLECALCIFEROL 1,000 UNITS TAB PO SCH (08:07)
[2018-07-26] MEDS: HydrALAZINE TAB 50 MG TAB PO SCH ×3 (08:07→20:37)
[2018-07-26] MEDS: PARoxetine HCl 20 MG TAB PO SCH (08:07)
[2018-07-26] MEDS: CARVEDILOL 12.5 MG TAB PO SCH ×2 (08:08→20:36)
[2018-07-26] MEDS: PANTOprazole 40 MG in SYRINGE 0 ML IV SCH ×2 (08:08→20:37)
[2018-07-26] MEDS: INSULIN ASPART 100 UNITS/ML 3 ML PEN SC SCH ×4 (08:27→21:16)
[2018-07-26] MEDS ORDERED: INSULIN GLARGINE SOLOSTAR 100 UNITS/ML 3 ML PEN SC ONE (09:00)
--- NOTE | 2018-07-26 11:08 | Communication Note ---
Date of Service: July 26, 2018 I seen Mr. Jack today, discussed his case with Dr. Sheldon, reviewed his chart, his [place] stay and his prior [facility] assessment in ad dition to his laboratory studies on the current admission. 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 Statins were stopped during his [place] hospitalization he began to improve but upon return home did not stop his atorvastatin and then began to decline. His primary care physician appropriately stopped the medication but he continued to decline and presented to the emergency room with global weakness and a significant anemia of new onset likely due to GI blood loss On the day of admission he required 3 person assist for walking but is now back to using only a walker feels significantly better and in my opinion this probably reflects the effects of his transfusion At this point he needs GI to assist the source of his blood loss, ongoing physical therapy assessment and perhaps stay at [facility] for a week or so following his acute hospitalization. He obviously needs to stay off the statins and could be seen in our office by Ana Wilcox myself or Ana Wilcox and Dr. Phillips in about 6 weeks time Full consultation has been dictated and I will see him back tomorrow but will likely sign off his case if he continues to improve. Galen Brown MD
--- NOTE | 2018-07-26 11:18 | Hospitalist Progress Note ---
Date of Service July 26, 2018 Assessment & Plan (1) Weakness: Recent hospitalization for weakness of extremities, lower > upper. GBS considered. Transferred to [facility] for further evaluation. EMG did not suggest GBS. [place] to have statin myopathy. Apparently patient continued to take atorvastatin after DC from [facility]. Atorvastatin stopped several days ago. Anemia possible contributing factor. Motor strength continues to improve. (2) Ambulatory dysfunction: Apparent statin myopathy as discussed above. PT / OT. (3) HTN (hypertension): Diuretic held. Continue carvedilol, hydralazine, amlodipine. (4) Chronic renal failure, stage 4 (severe): CKD IV with baseline creatinine around 3 and estimated GFR in high teens - 20's. Creatinine today = 2.63. Follow. (5) Diabetes mellitus, type II: FBS today = 219. Continue insulin coverage. (6) Anemia: Hgb 7.3 day of admission. Reported dark stools; stool heme + in ED. Transfused with 2 units pRBC's. Hgb today = 10.0. GI consulted. No need for EGD at this time; empiric PPI recommended. Outpatient colonoscopy recommended. (7) DVT prophylaxis: No anticoagulants due to heme + stools. SCD's. Anticoagulate. (8) Discharge planning issues: May need skilled care or rehab. Family Medicine follow-up with Dr. Fiona Novoa. Subjective Recheck for weakness and other problems. Patient seen in their room around 1020. Feels better. Lower extremity weakness improved. Ambulating with walker, albeit with some difficulty. Review of Systems: Constitutional- no fever. Cardiac- no chest pain. Pulmonary- no cough or SOB. GI- no nausea, vomiting, diarrhea, melena, hematochezia. - no urinary symptoms. Otherwise, as noted above. Physical Exam Constitutional: no acute distress Respiratory: no respiratory distress Auscultation: lungs clear to auscultation bilaterally Cardiovascular: Rate/Rhythm: regular rate and regular rhythm Vessels: no JVD Extremities: no calf tenderness and no edema Gastrointestinal (Abdomen): normal bowel sounds, soft, nontender, no hepatosplenomegaly Skin: no rashes, warm and dry Neurologic: upper extremity strength 5/5 proximally and distally hip flexion 4/5 bilat plantar reflexes upgoing bilat Psychiatric: Orientation: alert and oriented x 3 Results & Data Vital Signs (Past 12 Hours) Vital Signs Temp Pulse Pulse Resp BP Pulse Ox 07/26/18 08:20 88 07/26/18 07:34 36.5 C 95 H 20 155/80 H 96 07/26/18 03:45 36.5 C 86 18 164/65 H 97 07/25/18 23:23 74 Laboratory Results Laboratory Results - last 24 hr 07/26/18 07/26/18 07/26/18 01:59 06:24 06:24 WBC 13.69 H RBC 3.34 L Hgb 10.0 L Hct 28.4 L MCV 85.0 MCH 29.9 MCHC 35.2 RDW Std Deviation 41.8 RDW Coeff of Juma 13.5 Plt Count 196 MPV 10.0 Immature Gran % (Auto) 1.0 Neut % (Auto) 79.2 Lymph % (Auto) 9.3 [place] % (Auto) 8.6 Eos % (Auto) 1.8 Baso % (Auto) 0.1 Immature Gran # (Auto) 0.14 H Neut # (Auto) 10.84 H Lymph # (Auto) 1.27 [place] # (Auto) 1.18 H Eos # (Auto) 0.24 Baso # (Auto) 0.02 ESR 26 H Sodium Potassium Chloride Carbon Dioxide Anion Gap BUN Creatinine Est Cr Clr Drug Dosing Est GFR ( Amer) Est GFR (Non-Af Amer) BUN/Creatinine Ratio Glucose POC Glucose 165 H Calcium C-Reactive Protein 07/26/18 07/26/18 07/26/18 06:24 07:19 11:30 WBC RBC Hgb Hct MCV MCH MCHC RDW Std Deviation RDW Coeff of Juma Plt Count MPV Immature Gran % (Auto) Neut % (Auto) Lymph % (Auto) [place] % (Auto) Eos % (Auto) Baso % (Auto) Immature Gran # (Auto) Neut # (Auto) Lymph # (Auto) [place] # (Auto) Eos # (Auto) Baso # (Auto) ESR Sodium 136 Potassium 3.5 Chloride 105 Carbon Dioxide 22 Anion Gap 9.0 BUN 83 H Creatinine 2.63 H Est Cr Clr Drug Dosing 25.4 Est GFR ( Amer) 26.6 Est GFR (Non-Af Amer) 22.9 BUN/Creatinine Ratio 31.6 H Glucose 203 H POC Glucose 219 H 216 H Calcium 8.2 L C-Reactive Protein 0.36 H 07/26/18 07/26/18 16:27 20:50 WBC RBC Hgb Hct MCV MCH MCHC RDW Std Deviation RDW Coeff of Juma Plt Count MPV Immature Gran % (Auto) Neut % (Auto) Lymph % (Auto) [place] % (Auto) Eos % (Auto) Baso % (Auto) Immature Gran # (Auto) Neut # (Auto) Lymph # (Auto) [place] # (Auto) Eos # (Auto) Baso # (Auto) ESR Sodium Potassium Chloride Carbon Dioxide Anion Gap BUN Creatinine Est Cr Clr Drug Dosing Est GFR ( Amer) Est GFR (Non-Af Amer) BUN/Creatinine Ratio Glucose POC Glucose 169 H 187 H Calcium C-Reactive Protein (1) Diabetes mellitus, type II Diabetes mellitus complication status: without complication Diabetes mellitus terminal block assembler insulin use: unspecified terminal block assembler insulin use status Qualified Code(s): E11.9 - Type 2 diabetes mellitus without complications
--- NOTE | 2018-07-26 14:35 | Consultation Report ---
DATE OF CONSULTATION: 07/26/[address] Katie Hinson and Dr. Galen Sheldon. HISTORY OF PRESENT ILLNESS: Mr. Jack is a 73-year-old patient of Dr. Fiona Novoa and presented to the hospital with recurrent episodes of weakness involving both lower extremities. The patient has been recently hospitalized in [facility] on 07/13 after a week's worth of weakness and primarily involving his legs and was assessed by Dr. Vadim Phillips and Ana Wilcox PA-C. It was felt that he possibly had an acute infectious polyradiculopathy superimposed upon his diabetic neuropathy and unfortunately an EMG could not be done here. 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 No clear cut myopathy, but an elevated CPK, which had not been present there on the laboratory studies. 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 After resuming the medication, he continued to decline and Dr. Novoa upon review of his story promptly stopped the medication several days ago, but he continued to get worse. He was brought to the Emergency Room for weakness and his anemia and noted some dark stools and heme-positive stools in the ER and was found to have a significant low hemoglobin and hematocrit. He is now feeling better. He has had a transfusion. His strength is returning. His CPK remains normal. Neurology is asked to take a look at him to see if we have any other suggestions. PAST MEDICAL HISTORY: Reveals some hypertension, diabetes type 2. His glucose on admission was somewhat elevated at 491. He has chronic stage IV renal disease. He has depression. He is currently on DVT prophylaxis. His medical history is pretty much as outlined above. MEDICATIONS AT HOME: Include amlodipine, carvedilol, cholecalciferol, ferrous sulfate, hydralazine, paroxetine, acetaminophen, aspirin, hydrocodone/acetaminophen for pain, ranitidine and torsemide and did include up until Dr. Novoa stopped the medication p.r.n. 20 mg of Lipitor. ALLERGIES: HE HAS ALLERGIES TO SITAGLIPTIN WHICH PRODUCED LIGHTHEADEDNESS AND PAINS IN HIS UPPER STOMACH. SOCIAL HISTORY: Reveals him to be , nonsmoker, minimal consumer of ethanol. PAST SURGICAL HISTORY: Reveals a history of an EGD, cataract surgery and colonoscopy. FAMILY HISTORY: Noncontributory other than his mother had diabetes. REVIEW OF SYSTEMS: Pretty unremarkable with the exception of the issues surrounding his current recent illness of lower extremity weakness involving also some proximal muscles of his upper arms, sparing his distal upper extremities, his diabetic neuropathy and is otherwise unremarkable in terms of revealing no significant new issues referable to head, eyes, ears, nose and throat, cardiovascular, pulmonary, gastrointestinal, genitourinary, musculoskeletal, dermatologic, or hematologic systems. PHYSICAL EXAMINATION: GENERAL: On exam yesterday, his general physical examination was pretty unremarkable. He looks a little pale. Indeed, his hemoglobin was down to 7.3 with a hematocrit of 21. Basic electrolytes, etc. were normal. HEENT: His cranial nerves were intact. Speech was clear. There are no other issues referable to his head, eyes, ears, nose and throat. There are no audible carotid bruits. LUNGS: Clear. HEART: Had a regular rhythm. ABDOMEN: Soft, nontender. There is no peripheral edema. Pulses were intact. NEUROLOGIC: Today, neurologically, again he is awake, alert, oriented in 3 spheres, a reasonable historian. I do not see any cranial neuropathy. He does not have any neck flexor weakness. There may be a little bit of proximal weakness in his arm. This is minimal. Distally, he has excellent strength and he really has good strength in the lower extremities as well even proximally involving the quads and the flexures. I did not test the gluteus, I did not stand him up, having no assistance in the room to do so. He claims, however, there was up walking with a walker, which is a significant improvement from yesterday. Reflexes are absent throughout. Toes are downgoing. No Emmanuel signs are seen and there is some pretty dense loss of sensation up to his knees to vibration, light touch, and temperature. ASSESSMENT AND PLAN: At this point, the diagnosis remains unclear, but certainly would not be inconsistent with a statin-induced myopathy. Antibodies to statins are pending at [facility], have not been back on the chart yet, but even if they were negative, but we would not exclude the diagnosis as these antibodies are often present in only 25% of people and in those cases are usually in those with severe acute necrotizing myopathy, which this man did not have clinically or by laboratory studies. His anemia certainly was playing a role in his recurrent weakness and may have been playing a role to some degree all along and this needs to be assessed. For now, however, neurology is recommending no further evaluation. Obviously, he needs to have his Lipitor held indefinitely and probably needs to be seen by GI to see if there is a source for the presumptive GI bleeding. I will drop by and look at him again tomorrow, but if he continues to improve neurologically, I do not think we need to see him on a regular basis and may not even need to see him in the office in followup other than perhaps in a 6-week interval. EDINSON
[2018-07-27 06:47] LABS: Hematocrit (blood only) 26.3 % (42-52); Hemoglobin 9.3 g/dL (14.0-18.0)
[2018-07-27 07:17] LABS: BUN Creatinine Ratio 28.6 (10-20); Calcium 8.4 mg/dl (8.5-10.1); Creatinine Clr Calc Pharmacy 26.8 ml/min; Est GFR (African American) 28.1; Est GFR (Non-African American) 24.3; Potassium 3.6 mmol/L (3.5-5.1)
[2018-07-27] MEDS: HYDROCODONE/ACETAMOPHEN 5/325MG TAB PO PRN (07:59)
[2018-07-27] MEDS: AMLODIPINE BESYLATE 5 MG TAB PO SCH (08:00)
[2018-07-27] MEDS: PARoxetine HCl 20 MG TAB PO SCH (08:00)
[2018-07-27] MEDS: CARVEDILOL 12.5 MG TAB PO SCH ×2 (08:00→20:42)
[2018-07-27] MEDS: CHOLECALCIFEROL 1,000 UNITS TAB PO SCH (08:00)
[2018-07-27] MEDS: HydrALAZINE TAB 50 MG TAB PO SCH ×3 (08:01→20:43)
[2018-07-27] MEDS: INSULIN ASPART 100 UNITS/ML 3 ML PEN SC SCH ×4 (08:01→20:45)
[2018-07-27] MEDS: FERROUS SULFATE 325 MG TAB PO SCH ×2 (08:01→17:01)
[2018-07-27] MEDS: PANTOprazole 40 MG in SYRINGE 0 ML IV SCH ×2 (09:26→20:42)
--- NOTE | 2018-07-27 10:40 | Communication Note ---
Date of Service: Kevin saw Mr. Jack today with his son and grandson at the bedside again reviewed his history, performing examination and agree that this man's improving in terms of his proximal and to some degree distal lower greater than upper extremity weakness he is able to stand with a little bit of push off from the chair but requires a walker for ambulation and much of this is due to residual proximal weakness in his gluteal group and to some degree of the thigh abductors and quadriceps He tells me that the onset of this illness was characterized by numbness in his fingers as well as his feet and that the weakness emerged over period of several days prior to his admission here back in June and then his transfer to [facility] the numbness persists but his strength in the upper extremities is nearly back to baseline and he had a lot of pre-existing paresthesias in his distal lower extremities due to his diabetic polyneuropathy. 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 He is improving. 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 Vadim Phillips MD who saw him initially during his acute illness prior to his transfer to [facility] in early July Ana Wilcox and I will take a look at him tomorrow and make further recommendations if necessary. Galen Brown MD
[2018-07-27] MEDS ORDERED: LAVAGE SOLUTION 4000ML PO SCH ×3 (17:00)
--- NOTE | 2018-07-27 19:45 | Hospitalist Progress Note ---
Date of Service July 27, 2018 Assessment & Plan (1) Anemia: Chronic anemia, requiring transfusions on 2 occasions in past. Hgb 7.3 day of admission. Reported dark stools at home; stool heme + in ED. Anemia could be due to combination of CKD + chronic GI blood loss. Transfused with 2 units pRBC's. Hgb today = 9.3. GI consulted. No need for EGD at this time; receiving PPI. Colonoscopy recommended. (2) Weakness: Recent hospitalization for weakness of extremities, lower > upper. GBS considered. MR imaging of brain and entire spine unrevealing (had extensive degenerative disease of spine, but no significant cord compromise). Transferred to [facility] for further evaluation. EMG did not suggest GBS. 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 Apparently patient continued to take atorvastatin after DC from [facility]. Atorvastatin stopped several days ago. Anemia possible contributing factor. Motor strength continues to improve. (3) Ambulatory dysfunction: Apparent statin myopathy as discussed above. PT / OT. (4) HTN (hypertension): Diuretic held. Continue carvedilol, hydralazine, amlodipine. (5) Chronic renal failure, stage 4 (severe): CKD IV with baseline creatinine around 3 and estimated GFR in high teens - 20's. Creatinine today = 2.51. Follow. (6) Diabetes mellitus, type II: FBS today = 167. Continue insulin coverage. (7) DVT prophylaxis: No anticoagulants due to heme + stools. SCD's. Anticoagulate. (8) Discharge planning issues: May need skilled care or rehab. Family Medicine follow-up with Dr. Fiona Novoa. Subjective Recheck for multiple problems. Patient seen in their room around 0950. Lower extremity weakness improved. Has not yet ambulated today. Review of Systems: Constitutional- no fever. Cardiac- no chest pain. Pulmonary- no cough or SOB. GI- no nausea, vomiting, diarrhea, melena, hematochezia. - no urinary symptoms. Otherwise, as noted above. Physical Exam Constitutional: no acute distress Respiratory: no respiratory distress Auscultation: lungs clear to auscultation bilaterally Cardiovascular: Rate/Rhythm: regular rate and regular rhythm Vessels: no JVD Extremities: no calf tenderness and no edema Gastrointestinal (Abdomen): normal bowel sounds, soft, nontender, no hepatosplenomegaly Musculoskeletal: Extremities: + abnormal strength (mild weakness of hip flexion bilat) Skin: no rashes, warm and dry Psychiatric: Orientation: alert and oriented x 3 Results & Data Vital Signs (Past 12 Hours) Vital Signs Temp Pulse Pulse Resp BP BP Pulse Ox 07/27/18 19:27 36.5 C 74 18 166/70 H 98 07/27/18 15:19 36.5 C 83 19 142/64 H 98 07/27/18 15:15 75 07/27/18 13:51 74 113/58 L 07/27/18 11:07 36.6 C 72 18 127/58 L 99 07/27/18 08:00 85 Laboratory Results Laboratory Results - last 24 hr 07/26/18 07/27/18 07/27/18 20:50 06:19 06:19 Hgb 9.3 L Hct 26.3 L Sodium 134 L Potassium 3.6 Chloride 102 Carbon Dioxide 20 L Anion Gap 12.0 H BUN 72 H Creatinine 2.51 H Est Cr Clr Drug Dosing 26.8 Est GFR ( Amer) 28.1 Est GFR (Non-Af Amer) 24.3 BUN/Creatinine Ratio 28.6 H Glucose 157 H POC Glucose 187 H Calcium 8.4 L 07/27/18 07/27/18 07/27/18 07:19 11:40 16:15 Hgb Hct Sodium Potassium Chloride Carbon Dioxide Anion Gap BUN Creatinine Est Cr Clr Drug Dosing Est GFR ( Amer) Est GFR (Non-Af Amer) BUN/Creatinine Ratio Glucose POC Glucose 167 H 200 H 222 H Calcium (1) Diabetes mellitus, type II Diabetes mellitus complication status: without complication 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
[2018-07-27] MEDS ORDERED: INSULIN GLARGINE SOLOSTAR 100 UNITS/ML 3 ML PEN SC SCH (21:00)
[2018-07-28] MEDS: HYDROCODONE/ACETAMOPHEN 5/325MG TAB PO PRN (04:38)
[2018-07-28 07:29] LABS: Hemoglobin 9.4 g/dL (14.0-18.0)
[2018-07-28] MEDS: HydrALAZINE TAB 50 MG TAB PO SCH ×3 (07:57→20:35)
[2018-07-28] MEDS: CARVEDILOL 12.5 MG TAB PO SCH ×2 (07:57→20:35)
[2018-07-28] MEDS: FERROUS SULFATE 325 MG TAB PO SCH ×2 (07:58→17:15)
[2018-07-28] MEDS: AMLODIPINE BESYLATE 5 MG TAB PO SCH (07:58)
[2018-07-28] MEDS: PANTOprazole 40 MG in SYRINGE 0 ML IV SCH ×2 (07:58→20:35)
[2018-07-28] MEDS: CHOLECALCIFEROL 1,000 UNITS TAB PO SCH (07:58)
[2018-07-28] MEDS: PARoxetine HCl 20 MG TAB PO SCH (07:58)
[2018-07-28 08:12] LABS: BUN Creatinine Ratio 22.9 (10-20); Calcium 8.6 mg/dl (8.5-10.1); Creatinine Clr Calc Pharmacy 26.8 ml/min; Est GFR (African American) 28.3; Est GFR (Non-African American) 24.4
[2018-07-28] MEDS: INSULIN ASPART 100 UNITS/ML 3 ML PEN SC SCH ×4 (08:30→20:32)
[2018-07-28] MEDS ORDERED: D5W AND 1/2NSS + 20MEQ KCL 20 MEQ/1,000 ML BAG IV SCH (08:30)
[2018-07-28 08:32] LABS: Folate (Folic Acid) 20.16 ng/ml (>5.38); Vitamin B12 > 2000 pg/ml (211-911)
[2018-07-28] MEDS: POTASSIUM CHLORIDE / WTR 10 MEQ/100 ML PLCT IV SCH ×2 (09:21→12:10)
[2018-07-28] MEDS ORDERED: PROPOFOL IV EMULSION 10 MG/ML 20 ML VIAL IV ONE ×2 (10:34→11:17)
[2018-07-28] MEDS ORDERED: LIDOCAINE HCL 2% 2 ML VIAL/AMP(20MG/ML) INFIL ONE (10:34)
--- NOTE | 2018-07-28 10:39 | Anesthesiology Consultation ---
Date of Service July 28, 2018 Assessment & Plan (1) Encounter for pre-operative examination: Chart Review Chart Review: Acceptable Risk for Surgery and Patient NOT seen in Pre Admission Testing Consults Requested none History Surgery Operation Date: 07/28/18 08:30 Proposed Procedures p Colonoscopy Dr Jordan Ortega Height/Weight Height: 5 ft 11 in Weight: 73.1 kg Allergies Allergy/AdvReac Type Severity Reaction Status Date / Time sitagliptin Allergy Unknown LIGHTHEADEDNESS Verified 07/28/18 10:29 AND PAINS IN UPPER STOMACH Medications Home Medications Medication Instructions Recorded Confirmed Last Taken amlodipine [Norvasc] 10 mg PO QAM 11/27/17 07/24/18 07/24/18 07:00 carvedilol [Coreg] 12.5 mg PO BID 11/27/17 07/24/18 07/24/18 07:00 cholecalciferol (vitamin D3) 1,000 unit PO QAM 11/27/17 07/24/18 07/24/18 07:00 [Vitamin D3] ferrous sulfate 325 mg PO BID 11/27/17 07/24/18 07/24/18 07:00 hydralazine 100 mg PO TID 11/27/17 07/24/18 07/24/18 12:00 paroxetine HCl [Paxil] 20 mg PO DAILY 11/27/17 07/24/18 07/24/18 07:00 acetaminophen [Tylenol Extra 1,000 mg PO BID PRN 07/24/18 07/24/18 Unknown Strength] aspirin [Aspir-81] 81 mg PO DAILY 07/24/18 07/24/18 07/24/18 07:00 hydrocodone-acetaminophen [[place]] 1 tab PO Q6H PRN 07/24/18 07/24/18 07/24/18 16:00 ranitidine HCl 150 mg PO BID 07/24/18 07/24/18 Unknown torsemide 10 mg PO DAILY 07/24/18 07/24/18 07/24/18 07:00 Active Medications Generic Name Dose Route Start Last Admin Trade Name Freq PRN Reason Stop Dose Admin Acetaminophen 650 mg 07/24/18 21:47 07/25/18 02:45 Tylenol PO 08/23/18 21:46 650 mg Q4H PRN Administration Pain or Fever Hydrocodone Bitart/Acetaminophen 1 tab 07/25/18 17:18 07/28/18 04:38 [place] 5/325 PO 08/08/18 17:17 1 tab Q6 PRN Administration moderate to severe Amlodipine Besylate 10 mg 07/25/18 09:00 07/28/18 07:58 Norvasc PO 08/24/18 08:59 10 mg QAM [place] Administration Carvedilol 12.5 mg 07/24/18 21:00 07/28/18 07:57 Coreg PO 08/23/18 20:59 12.5 mg BID [place] Administration Ferrous Sulfate 325 mg 07/25/18 08:00 07/28/18 07:58 Feosol PO 08/24/18 07:59 325 mg BIDM [place] Administration Hydralazine HCl 100 mg 07/24/18 21:00 07/28/18 07:57 Apresoline PO 08/23/18 20:59 100 mg TID [place] Administration Pantoprazole Sodium 40 mg/ 10 mls @ 5 mls/min 07/25/18 21:00 07/28/18 07:58 Syringe IV 08/24/18 20:59 5 mls/min BID@0900,2100 [place] Administration Potassium Chloride/Dextrose/Sod Cl 20 meq in 1,000 mls @ 125 mls/hr 07/28/18 08:30 07/28/18 10:02 D5w And 1/2nss + 20meq Kcl IV 08/27/18 08:29 0 mls/hr .Q8H PARIS Infusion Insulin Aspart 0 units 07/25/18 07:30 07/28/18 08:30 Novolog Flexpen SC 08/24/18 07:29 Not Given ACHS PAR[place] Insulin Glargine 0 - 12 units 07/27/18 21:00 07/27/18 20:45 Lantus Solostar Pen SC 08/26/18 20:59 8 units BID [place] Administration Paroxetine HCl 20 mg 07/25/18 09:00 07/28/18 07:58 Paxil PO 08/24/18 08:59 20 mg DAILY [place] Administration Polyethylene Glycol/Electrolytes 16 dose 07/27/18 17:00 07/27/18 18:08 Golytely PO 08/26/18 16:59 16 dose TODAY@1700 PAR[place] Administration Ranitidine HCl 150 mg 07/24/18 21:00 07/28/18 07:58 Zantac PO 08/23/18 20:59 150 mg BID [place] Administration Vitamin D 1,000 units 07/25/18 09:00 07/28/18 07:58 Vitamin D3 PO 08/24/18 08:59 1,000 units QAM [place] Administration NPO Date Last Intake of Fluids: 07/28/18 Time Last Intake of Fluids: 08:00 Last Intake of Fluids Comment: small sip with meds Date Last Intake of Solids: 07/27/18 Past Medical History Medical History Diabetes mellitus, type II (Chronic) Chronic renal failure, stage 4 (severe) (Chronic) HTN (hypertension) (Chronic) Depression (Chronic) Hyperlipidemia (Chronic) ANI (acute kidney injury) (Resolved) Anemia (Chronic) Hgb 6.8 on admission s/p 2 units PRBCs 11/2017 Hypokalemia Anxiety (Chronic) Past Family History Family History Mother Breast cancer Diabetes Past Surgical History Surgical History History of esophagogastroduodenoscopy (EGD) (Chronic) 11/28/2017: esophagitis, +H Pylori. Performed at [facility] History of cataract surgery (Chronic) S/P colonoscopy (Chronic) Social History Smoking Status: Former smoker Smoking cigarettes per day: 2004 Do You Dip or Chew Tobacco: No Hx Alcohol Use: Yes Alcohol type: beer alcohol intake frequency: a few times a month Hx Substance Use: No substance use type: does not use Physical Exam Vital Signs Last Vital Signs Temp 36.1 C L 07/28/18 10:27 Pulse 90 07/28/18 10:27 Resp 16 07/28/18 10:27 BP 168/76 H 07/28/18 10:27 Pulse Ox 99 07/28/18 10:27 Testing Laboratory Results 07/28/18 07:03 07/28/18 07:03 Blood Type O Negative 07/24/18 17:51 Antibody Screen NEGATIVE 07/24/18 17:51 PT 10.2 Seconds (9.0-12.0) 07/24/18 17:51 INR 1.0 (0.9-1.1) 07/24/18 17:51 Urine Color Yellow 07/24/18 18:00 Urine Appearance Clear (Clear) 07/24/18 18:00 Urine pH 5.0 (4.5-7.5) 07/24/18 18:00 Ur Specific [place] 1.020 (1.000-1.030) 07/24/18 18:00 Urine Protein 1+ (Negative) H 07/24/18 18:00 Urine Glucose (UA) 3+ (Negative) H 07/24/18 18:00 Urine Ketones Negative (Negative) 07/24/18 18:00 Urine Nitrite Negative (Negative) 07/24/18 18:00 Ur Leukocyte Esterase Negative (Negative) 07/24/18 18:00 Urine WBC (Auto) 1-5 /hpf (0-5) 07/24/18 18:00 Urine RBC (Auto) 0-4 /hpf (0-4) 07/24/18 18:00 U Hyaline Cast (Auto) 1-5 /lpf (0-5) 07/24/18 18:00 U Epithel Cells (Auto) 0-5 /lpf (0-5) 07/24/18 18:00 Urine Bacteria (Auto) Negative (Negative) 07/24/18 18:00 07/28/18 06:22 POC Glucose 147 H
--- NOTE | 2018-07-28 10:46 | Gastroenterology Progress Note ---
Date of Service July 28, 2018 Assessment & Plan (1) Anemia: No signs of GI bleeding presented with symptomatic anemia Plan for EGD given last one being performed in November, as well as colonoscopy today to evaluate possible source of occult bleeding. Subjective No complaints today, took prep without signs of bleeding. Physical Exam Physical Exam: Awake alert oriented x3 Heart is regular Lungs are clear Normal active soft nontender No peripheral edema Results & Data Vital Signs (Past 12 Hours) Vital Signs Temp Pulse Pulse Resp BP BP Pulse Ox 07/28/18 10:27 36.1 C L 90 16 168/76 H 99 07/28/18 07:34 91 H 07/28/18 07:25 37.2 C 90 20 138/63 99 07/28/18 03:58 36.5 C 89 20 143/63 H 99 07/27/18 23:50 36.4 C L 77 16 126/66 99
--- NOTE | 2018-07-28 11:27 | GI REPORT ---
Patient Name: Galen Jack Procedure Date: 07/28/2018 10:49 AM Date of : 1945 Admit Type: Inpatient Age: 73 Gender: Male Attending MD: Jose Ortega MD Procedure: Upper GI endoscopy Providers: Jose Ortega MD Referring MD: Fiona Novoa Indications: Iron deficiency anemia Medicines: Monitored Anesthesia Care Complications: No immediate complications. Estimated blood loss: None. Estimated Blood Loss: Estimated blood loss: none. Procedure: Pre-Anesthesia Assessment: - Pre-Anesthesia Assessment: - Prior to the procedure, a History and Physical was performed, and patient medications, allergies and sensitivities were reviewed. The patient's tolerance of previous anesthesia was reviewed. Please see [facility] for complete details. - The risks and benefits of the procedure and the sedation options and risks were discussed with the patient. All questions were answered and informed consent was obtained. - Patient identification and proposed procedure were verified prior to the procedure by the physician and the nurse. The procedure was verified in the pre-procedure area in the procedure room. After obtaining informed consent, the endoscope was passed carefully and meticuously under direct vision and only advanced when the lumen was clearly identified, C02 insuflation was utilized throughout the entirity of the procedure. Throughout the procedure, the patient's blood pressure, pulse, and oxygen saturations were monitored continuously. After obtaining informed consent, the endoscope was passed under direct vision. Throughout the procedure, the patient's blood pressure, pulse, and oxygen saturations were monitored continuously. The Endoscope was introduced through the mouth, and advanced to the second part of duodenum. The upper GI endoscopy was accomplished without difficulty. The patient tolerated the procedure well. Findings: The examined esophagus was normal. Localized moderate inflammation with hemorrhage characterized by adherent blood was found on the lesser curvature of the stomach. Biopsies were taken with a cold forceps for Helicobacter pylori testing. A single localized erosion without bleeding was found in the duodenal bulb. Impression: - Normal esophagus. - Chronic gastritis with hemorrhage. Biopsied. - Duodenal erosion without bleeding. Recommendation: - Await pathology results. - Return patient to [facility] for [facility] care. - Advance diet as tolerated. - Use Protonix (pantoprazole) 40 mg PO BID for 2 months. - Repeat upper endoscopy in 2 months to check healing. - Return to referring physician as previously scheduled. Jose Ortega MD 07/28/2018 11:26:30 AM This report has been signed electronically. Note Initiated On: 07/28/2018 10:49 AM Number of Addenda: 0 I attest to the content of the Intraoperative Record and orders documented therein, exceptions below {[id number]}
--- NOTE | 2018-07-28 11:30 | GI REPORT ---
Patient Name: Galen Jack Procedure Date: 07/28/2018 10:50 AM Date of : 1945 Admit Type: Inpatient Age: 73 Gender: Male Attending MD: Jose Ortega MD Procedure: Colonoscopy Providers: Jose Ortega MD Referring MD: Fiona Novoa Indications: Iron deficiency anemia Medicines: Monitored Anesthesia Care Complications: No immediate complications. Estimated blood loss: Minimal. Estimated Blood Loss: Estimated blood loss: none. Procedure: Pre-Anesthesia Assessment: - Pre-Anesthesia Assessment: - Prior to the procedure, a History and Physical was performed, and patient medications, allergies and sensitivities were reviewed. The patient's tolerance of previous anesthesia was reviewed. Please see [facility] for complete details. - The risks and benefits of the procedure and the sedation options and risks were discussed with the patient. All questions were answered and informed consent was obtained. - Patient identification and proposed procedure were verified prior to the procedure by the physician and the nurse. The procedure was verified in the pre-procedure area in the procedure room. After obtaining informed consent, the endoscope was passed carefully and meticuously under direct vision and only advanced when the lumen was clearly identified, C02 insuflation was utilized throughout the entirity of the procedure. Throughout the procedure, the patient's blood pressure, pulse, and oxygen saturations were monitored continuously. After I obtained informed consent, the scope was passed under direct vision. Throughout the procedure, the patient's blood pressure, pulse, and oxygen saturations were monitored continuously. The Colonoscope was introduced through the anus and advanced to the terminal ileum, with identification of the appendiceal orifice and IC valve. The colonoscopy was performed without difficulty. The patient tolerated the procedure well. The quality of the bowel preparation was fair. Findings: Multiple small-mouthed diverticula were found in the sigmoid colon. The terminal ileum appeared normal. Internal hemorrhoids were found during retroflexion. A 2 mm polyp was found in the ascending colon. The polyp was sessile. The polyp was removed with a jumbo cold forceps. Resection and retrieval were complete. A 5 mm polyp was found in the transverse colon. The polyp was sessile. The polyp was removed with a cold snare. Resection and retrieval were complete. Impression: - Preparation of the colon was fair. - Diverticulosis in the sigmoid colon. - The examined portion of the ileum was normal. - Internal hemorrhoids. - One 2 mm polyp in the ascending colon, removed with a jumbo cold forceps. Resected and retrieved. - One 5 mm polyp in the transverse colon, removed with a cold snare. Resected and retrieved. Recommendation: - Await pathology results. - [facility]. - Repeat colonoscopy in 1 year for surveillance and given prep - Return to referring physician as previously scheduled. - No signs of bleeding Jose Ortega MD 07/28/2018 11:29:26 AM This report has been signed electronically. Note Initiated On: 07/28/2018 10:50 AM Number of Addenda: 0 I attest to the content of the Intraoperative Record and orders documented therein, exceptions below {[id number]}
--- NOTE | 2018-07-28 12:00 | Anesthesiology Progress Note ---
Date of Service July 28, 2018 Anesthesia Post Procedure Vital Signs Vital Signs: Temp Pulse Pulse Resp BP BP Pulse Ox 07/28/18 11:50 78 18 155/73 H 95 07/28/18 11:35 79 18 143/77 H 94 07/28/18 11:20 69 16 106/52 L 99 07/28/18 10:27 36.1 C L 90 16 168/76 H 99 07/28/18 07:34 91 H 07/28/18 07:25 37.2 C 90 20 138/63 99 07/28/18 03:58 36.5 C 89 20 143/63 H 99 07/27/18 23:50 36.4 C L 77 16 126/66 99 07/27/18 19:27 36.5 C 74 18 166/70 H 98 07/27/18 15:19 36.5 C 83 19 142/64 H 98 07/27/18 15:15 75 07/27/18 13:51 74 113/58 L Pain Intensity Bilateral Leg: Pain Intensity: 2 Transfer of Care Handoff Completed per policy Notes Mental Status: alert / awake / arousable Patient Amnestic to Procedure: Yes Nausea / Vomiting: adequately controlled Pain: adequately controlled Airway Patency, RR, SpO2: stable & adequate BP & HR: stable & adequate Hydration State: stable & adequate Anesthetic Complications: no major complications apparent and Pt Satisfied with anesthetic care
--- NOTE | 2018-07-28 14:25 | Neurology Progress Note ---
Date of Service July 28, 2018 Assessment & Plan (1) Ambulatory dysfunction: 1. glucose control to help with further neuropathy changes 2. statin was stopped would not restart 3. needs PT/OT prior to return home 4. nursing visit to assess safety issues 5. GI intervention for hemaglobin issues neurology in 4-6 weeks for further evaluation of neuropathy/myopathy issues Ana Wilcox PAC schedule Supervising Physician Co-Signing Physician Notes I have seen and discussed above patient with Dr Galen Brown, neurology I saw Mr. 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 If this were [place] Patino syndrome he is on the road to improvement is beginning to ambulate with only the use of a walker, probably could get by with in-home rehabilitation although in my opinion an inpatient stay would be more appropriate and I would not use IVIG unless he would demonstrate a sudden relapse which is probably unlikely now at the 3-week interval following onset of symptoms We will check back with him tomorrow and will arrange for follow-up in an outpatient setting in about 4 to [address] Astudillo in the neuromuscular clinic depending on the schedule or with Ana Wilcox and Dr. Phillips or myself in the regular neurology clinic in [facility] Galen Brown MD Godwin Aaron is a 73 year old male with PMH DM II, HTN, HLD, CKD IV, h/o hyperkalemia with LUCHO/ARB use presented to ER with c/o bilateral leg weakness. He was seen at [facility] 07/13/2018-07/16/2018 for bilateral leg weakness. and was order MRI brain, C/T spine and L spine which showed some arthritic changes but no cause of the weakness. He was seen by neurology and was sent to [place] for possible GB. He had an EMG which was inconclusive due to his severe DM neuropathy. he has had 2 falls over which resulted in coming back to the hospital and was found to have decrease hemaglobin which required transfusion. He had an upper and lower GI today which found some polyps and diverticular in the colon and some areas of hemorrhage in the stomach. He states he thinks he is doing better. denies CP, SOB, abdominal pain, one sided weakness,numbness tingling, N, V. +numbness and tingling UE/LE, weakness with ambulation Physical Exam Physical Exam: Gen: alert NAD lungs CTA CV RRR UE- biceps/triceps hand director pharmacovigilance 4+/5, bilaterally, hip flex right 4/5, left 4+/5, patellar, plantar flex ext 4+/5 sensation decreased bilaterally to [place]quita vibration sensation loss bilaterally LE with GT proprioception absent Results & Data Vital Signs (Past 12 Hours) Vital Signs Temp Pulse Pulse Resp BP BP Pulse Ox 07/28/18 11:50 78 18 155/73 H 95 07/28/18 11:35 79 18 143/77 H 94 07/28/18 11:20 69 16 106/52 L 99 07/28/18 10:27 36.1 C L 90 16 168/76 H 99 07/28/18 07:34 91 H 07/28/18 07:25 37.2 C 90 20 138/63 99 07/28/18 03:58 36.5 C 89 20 143/63 H 99 Laboratory Results Abnormal lab results 07/27/18 07/27/18 07/28/18 Range/Units 16:15 20:40 06:22 Hgb (14.0-18.0) g/dL Hct (42-52) % Potassium (3.5-5.1) mmol/L Anion Gap (3-11) BUN (7-18) mg/dl Creatinine (0.6-1.4) mg/dl BUN/Creatinine Ratio (10-20) Glucose (70-99) mg/dl POC Glucose 222 H 173 H 147 H (70-99) Vitamin B12 (211-911) pg/ml 07/28/18 07/28/18 07/28/18 Range/Units 07:03 07:03 07:03 Hgb 9.4 L (14.0-18.0) g/dL Hct 26.0 L (42-52) % Potassium 3.0 L D (3.5-5.1) mmol/L Anion Gap 14.0 H (3-11) BUN 57 H (7-18) mg/dl Creatinine 2.50 H (0.6-1.4) mg/dl BUN/Creatinine Ratio 22.9 H (10-20) Glucose 133 H (70-99) mg/dl POC Glucose (70-99) Vitamin B12 > 2000 H (211-911) pg/ml 07/28/18 Range/Units 12:23 Hgb (14.0-18.0) g/dL Hct (42-52) % Potassium (3.5-5.1) mmol/L Anion Gap (3-11) BUN (7-18) mg/dl Creatinine (0.6-1.4) mg/dl BUN/Creatinine Ratio (10-20) Glucose (70-99) mg/dl POC Glucose 211 H (70-99) Vitamin B12 (211-911) pg/ml Diagnostic Findings no new imaging
--- NOTE | 2018-07-28 16:06 | Hospitalist Progress Note ---
Date of Service July 28, 2018 Assessment & Plan (1) Anemia: Chronic anemia, requiring transfusions on 2 occasions in past. Hgb 7.3 day of admission. Reported dark stools at home; stool heme + in ED. Anemia could be due to combination of CKD + chronic GI blood loss. Transfused with 2 units pRBC's. Hgb today = 9.4. GI consulted. EGD today- gastritis with hemorrhage, duodenal erosion. Colonoscopy today- diverticulosis, internal hemorrhoids, no active bleeding. B12, folate OK. Fe studies pending. (2) Gastritis and duodenitis: EGD today- gastritis with hemorrhage, duodenal erosion. Bx for H pylori pending. Hold ASA. Need to review use of other possible gastric irritants. PPI BID x 2 months. F/U per GI. (3) Weakness: Recent hospitalization for weakness of extremities, lower > upper. GBS considered. MR imaging of brain and entire spine unrevealing (had extensive degenerative disease of spine, but no significant cord compromise). Transferred to [facility] for further evaluation. EMG did not suggest GBS. [place] to possibly have statin myopathy (CPK in 700's). Apparently patient continued to take atorvastatin after DC from [facility]. Atorvastatin stopped several days ago. Anemia possible contributing factor. Motor strength continues to improve. (4) Ambulatory dysfunction: Apparent statin myopathy as discussed above. PT / OT. (5) HTN (hypertension): Diuretic held. Continue carvedilol, hydralazine, amlodipine. (6) Chronic renal failure, stage 4 (severe): CKD IV with baseline creatinine around 3 and estimated GFR in high teens - 20's. Creatinine today = 2.50. Follow. (7) Hypokalemia: Serum K today 3.0. Replace. Follow. (8) Diabetes mellitus, type II: FBS today = 167. Continue insulin coverage. (9) DVT prophylaxis: No anticoagulants due to heme + stools. SCD's. Anticoagulate. (10) Discharge planning issues: PT recommends skilled care or rehab, but patient prefers DC to home. Case Management assisting with discharge planning. Family Medicine follow-up with Dr. Fiona Novoa. Subjective Recheck for multiple problems. Patient seen in their room around 0840. Lower extremity weakness improved. No new complaints or concerns. Review of Systems: Constitutional- no fever. Cardiac- no chest pain. Pulmonary- no cough or SOB. GI- no nausea, vomiting, diarrhea, melena, hematochezia. - no urinary symptoms. Otherwise, as noted above. Physical Exam Constitutional: no acute distress Respiratory: no respiratory distress Auscultation: lungs clear to auscul tation bilaterally Cardiovascular: Rate/Rhythm: regular rate and regular rhythm Vessels: no JVD Extremities: no calf tenderness and no edema Gastrointestinal (Abdomen): normal bowel sounds, soft, nontender, no hepa tosplenomegaly Skin: no rashes, warm and dry Psychiatric: Orientation: alert and oriented x 3 Results & Data Vital Signs (Past 12 Hours) Vital Signs Temp Pulse Pulse Resp BP BP Pulse Ox 07/28/18 15:06 80 07/28/18 14:35 36.6 C 65 16 137/53 L 97 07/28/18 11:50 78 18 155/73 H 95 07/28/18 11:35 79 18 143/77 H 94 07/28/18 11:20 69 16 106/52 L 99 07/28/18 10:27 36.1 C L 90 16 168/76 H 99 07/28/18 07:34 91 H 07/28/18 07:25 37.2 C 90 20 138/63 99 Laboratory Results Laboratory Results - last 24 hr 07/27/18 07/27/18 07/28/18 16:15 20:40 06:22 Hgb Hct Sodium Potassium Chloride Carbon Dioxide Anion Gap BUN Creatinine Est Cr Clr Drug Dosing Est GFR ( Amer) Est GFR (Non-Af Amer) BUN/Creatinine Ratio Glucose POC Glucose 222 H 173 H 147 H Calcium Vitamin B12 Folate 07/28/18 07/28/18 07/28/18 07:03 07:03 07:03 Hgb 9.4 L Hct 26.0 L Sodium 137 Potassium 3.0 L D Chloride 101 Carbon Dioxide 22 Anion Gap 14.0 H BUN 57 H Creatinine 2.50 H Est Cr Clr Drug Dosing 26.8 Est GFR ( Amer) 28.3 Est GFR (Non-Af Amer) 24.4 BUN/Creatinine Ratio 22.9 H Glucose 133 H POC Glucose Calcium 8.6 Vitamin B12 > 2000 H Folate 20.16 07/28/18 12:23 Hgb Hct Sodium Potassium Chloride Carbon Dioxide Anion Gap BUN Creatinine Est Cr Clr Drug Dosing Est GFR ( Amer) Est GFR (Non-Af Amer) BUN/Creatinine Ratio Glucose POC Glucose 211 H Calcium Vitamin B12 Folate (1) Diabetes mellitus, type II Diabetes mellitus complication status: without complication Diabetes mellitus terminal operator insulin use: unspecified terminal operator insulin use status Qualified Code(s): E11.9 - Type 2 diabetes mellitus without complications
[2018-07-29] MEDS: HYDROCODONE/ACETAMOPHEN 5/325MG TAB PO PRN ×2 (02:59→18:18)
[2018-07-29 07:24] LABS: Hematocrit (blood only) 25.7 % (42-52); Hemoglobin 9.1 g/dL (14.0-18.0); Mean Corpuscular Hgb Conc 35.4 g/dL (32-36); Platelet Count 160 K/uL (130-400); RDW Coefficient of Variation 13.8 % (11.5-14.5); RDW Standard Deviation 42.3 fL (36.4-46.3); Red Blood Count 2.99 M/uL (4.7-6.1); White Blood Count 9.89 K/uL (4.8-10.8)
[2018-07-29] MEDS: CARVEDILOL 12.5 MG TAB PO SCH ×2 (07:38→20:34)
[2018-07-29] MEDS: HydrALAZINE TAB 50 MG TAB PO SCH ×3 (07:38→20:34)
[2018-07-29] MEDS: CHOLECALCIFEROL 1,000 UNITS TAB PO SCH (07:38)
[2018-07-29] MEDS: PARoxetine HCl 20 MG TAB PO SCH (07:39)
[2018-07-29] MEDS: FERROUS SULFATE 325 MG TAB PO SCH ×2 (07:39→18:13)
[2018-07-29] MEDS: AMLODIPINE BESYLATE 5 MG TAB PO SCH (07:39)
[2018-07-29] MEDS: INSULIN ASPART 100 UNITS/ML 3 ML PEN SC SCH ×4 (07:44→20:32)
[2018-07-29] MEDS: PANTOprazole 40 MG in SYRINGE 0 ML IV SCH ×2 (07:45→20:32)
[2018-07-29 07:57] LABS: BUN Creatinine Ratio 19.9 (10-20); Calcium 8.1 mg/dl (8.5-10.1); Creatinine Clr Calc Pharmacy 23.8 ml/min; Est GFR (African American) 24.7; Est GFR (Non-African American) 21.4; Potassium 3.4 mmol/L (3.5-5.1)
[2018-07-29 08:02] LABS: Ferritin 157.3 ng/ml (8-388)
[2018-07-29] MEDS: POTASSIUM CHLORIDE / WTR 10 MEQ/100 ML PLCT IV SCH ×2 (08:50→11:07)
[2018-07-29] MEDS ORDERED: IRON SUCROSE 100 MG in 0.9 % SODIUM CHLORIDE 100 ML IV SCH (09:00)
--- NOTE | 2018-07-29 15:36 | Neurology Progress Note ---
Date of Service July 29, 2018 Assessment & Plan (1) Ambulatory dysfunction: 1. glucose control to help with further neuropathy changes 2. statin was stopped would not restart 3. needs PT/OT prior to return home 4. nursing visit to assess safety issues 5. GI intervention for hemaglobin issues 6. H/H needs to be followed by PCP/hematology for further treatment 7. need to use walker at all time, optimal plan would be inpatient rehab but he does not want to go to rehab. will sign off for now will be available if needed. neurology in 4-6 weeks for further evaluation of neuropathy/myopathy issues Vadim Phillips, scheduled. Supervising Physician Co-Signing Physician Notes I have seen and discussed above patient with Dr Galen Brown, neurology I saw Mr. 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 He is improving. We will see him in the office For now we are going to sign off Galen Brown MD Godwin Aaron is a 73 year old male with PMH DM II, HTN, HLD, CKD IV, h/o hyperkalemia with LUCHO/ARB use presented to ER with c/o bilateral leg weakness. He was seen at [facility] 07/13/2018-07/16/2018 for bilateral leg weakness. and was order MRI brain, C/T spine and L spine which showed some arthritic changes but no cause of the weakness. He was seen by neurology and was sent to [facility] for possible GB. He had an EMG which was inconclusive due to his severe DM neuropathy. he has had 2 falls over which resulted in coming back to the hospital and was found to have decrease hemaglobin which required transfusion. He had an upper and lower GI today which found some polyps and diverticular in the colon and some areas of hemorrhage in the stomach. He states he thinks he is doing better. He plans to go home with physical therapy at home. denies CP, SOB, abdominal pain, one sided weakness,numbness tingling, N, V. +numbness and tingling UE/LE, weakness with ambulation Physical Exam Physical Exam: Gen: alert NAD lungs CTA CV RRR hand exercise rider, biceps triceps deltoids 4+/5 bilaterally hip flex 4+/5 left 4/5 right plantar flex ext 5/5 bilaterally Results & Data Vital Signs (Past 12 Hours) Vital Signs Temp Pulse Resp BP BP Pulse Ox 07/29/18 12:07 36.8 C 77 18 136/56 L 98 07/29/18 07:58 36.8 C 88 18 139/74 96 07/29/18 03:35 36.7 C 79 19 166/65 H 98
--- NOTE | 2018-07-29 20:33 | Hospitalist Progress Note ---
Date of Service July 29, 2018 Assessment & Plan (1) Anemia: Chronic anemia, requiring transfusions on 2 occasions in past. Hgb 7.3 day of admission. Reported dark stools at home; stool heme + in ED. Anemia could be due to combination of CKD + chronic GI blood loss. Transfused with 2 units pRBC's. Hgb today = 9.1. GI consulted. EGD 07/28- gastritis with hemorrhage, duodenal erosion. Colonoscopy 07/28- diverticulosis, polyps, internal hemorrhoids, no active bleeding. B12, folate OK. Fe and transferrin sat low. No oral iron because of gastritis / duodenal erosion. IV Fe sucrose today. (2) Gastritis and duodenitis: EGD today- gastritis with hemorrhage, duodenal erosion. Bx for H pylori negative. Hold ASA. Need to review use of other possible gastric irritants. PPI BID x 2 months. F/U per GI. (3) Colonic polyp: Colonoscopy 07/28/18. Found to have polyps in transverse and ascending colon. Path = tubular adenoma. F/U per GI. (4) Weakness: Recent hospitalization for weakness of extremities, lower > upper. GBS considered. MR imaging of brain and entire spine unrevealing (had extensive degenerative disease of spine, but no significant cord compromise). Transferred to [facility] for further evaluation. EMG did not suggest GBS. [place] to possibly have statin myopathy (CPK in 700's). Apparently patient continued to take atorvastatin after DC from [facility]. Atorvastatin stopped several days prior to admission. Anemia possible contributing factor. Motor strength continues to improve. (5) Ambulatory dysfunction: Apparent statin myopathy as discussed above. PT / OT. (6) HTN (hypertension): Diuretic held. Continue carvedilol, hydralazine, amlodipine. (7) Chronic renal failure, stage 4 (severe): CKD IV with baseline creatinine around 3 and estimated GFR in high teens - 20's. Creatinine today = 2.79. Follow. (8) Hypokalemia: Serum K as low as 3.0. K today = 3.4. Replace. Follow. (9) Diabetes mellitus, type II: FBS today = 182. Continue insulin coverage. (10) DVT prophylaxis: No anticoagulants due to heme + stools. SCD's. Anticoagulate. (11) Discharge planning issues: PT recommends skilled care or rehab, but patient prefers DC to home. Case Management assisting with discharge planning. Family Medicine follow-up with Dr. Fiona Novoa. Nephrology follow-up with Dr. Carpenter. Son SADE given update this morning by phone. Subjective Recheck for multiple problems. Patient seen in their room around 0950. No new problems during the night. No bowel movements yet today. Still weak and needs assistance. Has not yet ambulated today. Review of Systems: Constitutional- no fever. Cardiac- no chest pain. Pulmonary- no cough or SOB. GI- no nausea, vomiting, diarrhea, melena, hematochezia. - no urinary symptoms. Otherwise, as noted above. Physical Exam Constitutional: no acute distress Respiratory: no respiratory distress Auscultation: lungs clear to auscultation bilaterally Cardiovascular: Rate/Rhythm: regular rate and regular rhythm Vessels: no JVD Extremities: no calf tenderness and no edema Gastrointestinal (Abdomen): normal bowel sounds, soft, nontender, no hepatosplenomegaly Musculoskeletal: Extremities: + abnormal strength (mild weakness of hip flexion bilat) Skin: no rashes, warm and dry Psychiatric: Orientation: alert and oriented x 3 Results & Data Vital Signs (Past 12 Hours) Vital Signs Temp Pulse Pulse Resp BP BP Pulse Ox 07/29/18 19:16 36.7 C 79 18 142/60 H 99 07/29/18 15:42 36.5 C 78 21 148/63 H 98 07/29/18 15:28 75 07/29/18 12:07 36.8 C 77 18 136/56 L 98 Laboratory Results Laboratory Results - last 24 hr 07/28/18 07/29/18 07/29/18 20:30 07:12 07:12 WBC 9.89 RBC 2.99 L Hgb 9.1 L Hct 25.7 L MCV 86.0 MCH 30.4 MCHC 35.4 RDW Std Deviation 42.3 RDW Coeff of Juma 13.8 Plt Count 160 MPV 9.0 Sodium 139 Potassium 3.4 L Chloride 106 Carbon Dioxide 24 Anion Gap 9.0 BUN 56 H Creatinine 2.79 H Est Cr Clr Drug Dosing 23.8 Est GFR ( Amer) 24.7 Est GFR (Non-Af Amer) 21.4 BUN/Creatinine Ratio 19.9 Glucose 158 H POC Glucose 118 H Calcium 8.1 L Iron 29 L Transferrin 147 L Transferrin % Sat 14 L Ferritin 157.3 07/29/18 07/29/18 07/29/18 07:32 11:22 16:37 WBC RBC Hgb Hct MCV MCH MCHC RDW Std Deviation RDW Coeff of Juma Plt Count MPV Sodium Potassium Chloride Carbon Dioxide Anion Gap BUN Creatinine Est Cr Clr Drug Dosing Est GFR ( Amer) Est GFR (Non-Af Amer) BUN/Creatinine Ratio Glucose POC Glucose 182 H 278 H 130 H Calcium Iron Transferrin Transferrin % Sat Ferritin (1) Diabetes mellitus, type II Diabetes mellitus complication status: without complication Diabetes mellitus intermodal customer service insulin use: unspecified detention insulin use status Qualified Code(s): E11.9 - Type 2 diabetes mellitus without complications
[2018-07-30 07:15] LABS: Hematocrit (blood only) 26.2 % (42-52); Hemoglobin 9.1 g/dL (14.0-18.0); Mean Corpuscular Hgb Conc 34.7 g/dL (32-36); Mean Corpuscular Volume 86.8 fL (80-100); Mean Platelet Volume 9.3 fL (7.4-10.4); Platelet Count 173 K/uL (130-400); RDW Coefficient of Variation 13.9 % (11.5-14.5); RDW Standard Deviation 43.2 fL (36.4-46.3); Red Blood Count 3.02 M/uL (4.7-6.1); White Blood Count 9.96 K/uL (4.8-10.8)
[2018-07-30] MEDS: INSULIN ASPART 100 UNITS/ML 3 ML PEN SC SCH ×3 (07:48→16:49)
[2018-07-30] MEDS: HydrALAZINE TAB 50 MG TAB PO SCH ×2 (07:50→13:25)
[2018-07-30] MEDS: CARVEDILOL 12.5 MG TAB PO SCH (07:50)
[2018-07-30] MEDS: CHOLECALCIFEROL 1,000 UNITS TAB PO SCH (07:50)
[2018-07-30 07:51] LABS: BUN Creatinine Ratio 19.7 (10-20); Calcium 8.1 mg/dl (8.5-10.1); Creatinine Clr Calc Pharmacy 22.7 ml/min; Est GFR (African American) 24.7; Est GFR (Non-African American) 21.4; Potassium 3.3 mmol/L (3.5-5.1)
[2018-07-30] MEDS: PARoxetine HCl 20 MG TAB PO SCH (07:51)
[2018-07-30] MEDS: FERROUS SULFATE 325 MG TAB PO SCH ×2 (07:51→16:50)
[2018-07-30] MEDS: AMLODIPINE BESYLATE 5 MG TAB PO SCH (07:51)
[2018-07-30] MEDS: PANTOprazole 40 MG in SYRINGE 0 ML IV SCH (08:09)
[2018-07-30] MEDS ORDERED: IRON SUCROSE 200 MG in 0.9 % SODIUM CHLORIDE 100 ML IV SCH (09:00)
[2018-07-30] MEDS: POTASSIUM CHLORIDE / WTR 10 MEQ/100 ML PLCT IV SCH ×2 (10:02→12:08)
[2018-07-30] MEDS: HYDROCODONE/ACETAMOPHEN 5/325MG TAB PO PRN (10:04)
--- NOTE | 2018-07-30 16:35 | Hospitalist Progress Note ---
Date of Service July 30, 2018 Assessment & Plan (1) Anemia: Chronic anemia, requiring transfusions on 2 occasions in past. Hgb 7.3 day of admission. Reported dark stools at home; stool heme + in ED. Anemia could be due to combination of CKD + chronic GI blood loss. Transfused with 2 units pRBC's. Hgb today stable at 9.1. GI consulted. EGD 07/28- gastritis with hemorrhage, duodenal erosion. Colonoscopy 07/28- diverticulosis, polyps, internal hemorrhoids, no active bleeding. B12, folate OK. Fe and transferrin sat low. No oral iron at this time because of gastritis / duodenal erosion. Received IV Fe sucrose x 2 doses for total dose of 300 mg. Recheck H/H and Fe levels in clinic. (2) Gastritis and duodenitis: EGD today- gastritis with hemorrhage, duodenal erosion. Bx for H pylori negative. Hold ASA. Need to review use of other possible gastric irritants. PPI BID x 2 months. F/U per GI. (3) Colonic polyp: Colonoscopy 07/28/18. Found to have polyps in transverse and ascending colon. Path = tubular adenoma. F/U per GI. (4) Weakness: Recent hospitalization for weakness of extremities, lower > upper. GBS considered. MR imaging of brain and entire spine unrevealing (had extensive degenerative disease of spine, but no significant cord compromise). Transferred to [facility] for further evaluation. EMG did not suggest GBS. [place] to possibly have statin myopathy (CPK in 700's). Apparently patient continued to take atorvastatin after DC from [facility]. Atorvastatin stopped several days prior to admission. Anemia possible contributing factor. Motor strength continues to improve. (5) Ambulatory dysfunction: Apparent statin myopathy as discussed above. PT / OT. (6) HTN (hypertension): Diuretic held. Continue carvedilol, hydralazine, amlodipine. (7) Chronic renal failure, stage 4 (severe): CKD IV with baseline creatinine around 3 and estimated GFR in high teens - 20's. Creatinine today = 2.79. Follow. (8) Hypokalemia: Serum K as low as 3.0. K today = 3.3. Received 2 more doses of KCl this morning. Has history of CKD with hyperkalemia, so will not discharge on supplementation. Follow. (9) Diabetes mellitus, type II: DM type 2, managed with diet. Hgb A1C = 6.5 on 05/14/18. FBS today = 157. Received insulin coverage. Patient reluctant to start medications at this time, but may be warranted. Ongoing management as outpatient. (10) DVT prophylaxis: No anticoagulants due to heme + stools. SCD's. Anticoagulate. (11) Discharge planning issues: PT recommends skilled care or rehab, but patient prefers DC to home. Case Management assisting with discharge planning. Family Medicine follow-up with Dr. Fiona Novoa. Nephrology follow-up with Dr. Carpenter. Son SADE given update this afternoon by phone. Subjective Recheck for multiple problems. Patient seen in their room around 1430. Doing well. Ambulating with walker and assistance. Anxious to go home. Review of Systems: Constitutional- no fever. Cardiac- no chest pain. Pulmonary- no cough or SOB. GI- no nausea, vomiting, diarrhea, melena, hematochezia. - no urinary symptoms. Otherwise, as noted above. Physical Exam Constitutional: no acute distress Respiratory: no respiratory distress Auscultation: lungs clear to auscultation bilaterally Cardiovascular: Rate/Rhythm: regular rate and regular rhythm Vessels: no JVD Extremities: no calf tenderness and no edema Gastrointestinal (Abdomen): normal bowel sounds, soft, nontender, no hepatosplenomegaly Musculoskeletal: Extremities: + abnormal strength (mild weakness of hip flexion bilat) Skin: no rashes, warm and dry Psychiatric: Orientation: alert and oriented x 3 Results & Data Vital Signs (Past 12 Hours) Vital Signs Temp Pulse Resp BP BP Pulse Ox 07/30/18 14:55 36.4 C L 71 115/62 99 07/30/18 12:00 36.6 C 77 18 110/64 99 07/30/18 07:00 36.6 C 83 22 170/69 H 99 Laboratory Results Laboratory Results - last 24 hr 07/29/18 07/29/18 07/30/18 16:37 20:27 07:06 WBC 9.96 RBC 3.02 L Hgb 9.1 L Hct 26.2 L MCV 86.8 MCH 30.1 MCHC 34.7 RDW Std Deviation 43.2 RDW Coeff of Juma 13.9 Plt Count 173 MPV 9.3 Sodium Potassium Chloride Carbon Dioxide Anion Gap BUN Creatinine Est Cr Clr Drug Dosing Est GFR ( Amer) Est GFR (Non-Af Amer) BUN/Creatinine Ratio Glucose POC Glucose 130 H 164 H Calcium 07/30/18 07/30/18 07/30/18 07:06 07:26 11:25 WBC RBC Hgb Hct MCV MCH MCHC RDW Std Deviation RDW Coeff of Juma Plt Count MPV Sodium 136 Potassium 3.3 L Chloride 104 Carbon Dioxide 23 Anion Gap 9.0 BUN 55 H Creatinine 2.79 H Est Cr Clr Drug Dosing 22.7 Est GFR ( Amer) 24.7 Est GFR (Non-Af Amer) 21.4 BUN/Creatinine Ratio 19.7 Glucose 140 H POC Glucose 157 H 275 H Calcium 8.1 L 07/30/18 16:20 WBC RBC Hgb Hct MCV MCH MCHC RDW Std Deviation RDW Coeff of Juma Plt Count MPV Sodium Potassium Chloride Carbon Dioxide Anion Gap BUN Creatinine Est Cr Clr Drug Dosing Est GFR ( Amer) Est GFR (Non-Af Amer) BUN/Creatinine Ratio Glucose POC Glucose 154 H Calcium (1) Diabetes mellitus, type II Diabetes mellitus complication status: without complication Diabetes mellitus [facility] insulin use: unspecified [facility] insulin use status Qualified Code(s): E11.9 - Type 2 diabetes mellitus without complications
--- NOTE | 2018-07-30 17:17 | Discharge Summary ---
Date of Service Date of Admission: 07/24/18 Date of Discharge: 07/30/18 Admission HPI Per Admitting Provider Pt is 73 y/o M with PMH DM II, HTN, HLD, CKD IV, h/o hyperkalemia with LUCHO/ARB use presented to ER with c/o bilateral leg weakness. Patient with history of hospitalization at [facility] 07/13/2018-07/16/2018 for bilateral leg weakness. Had MRI Brain: No acute intracranial abnormality. Lumbar MRI:Moderate bone marrow edema about the left posterior lateral aspect of the L1 vertebral body associated with acute appearing Schmorl's node. Moderate soft tissue edema tracks along the left neuroforamen. No acute compression deformity. L3-L4 there is moderate central canal, mild to moderate right and moderate left foraminal narrowing. L4-L5 there is moderate to severe central canal with moderate to severe right and moderate left foraminal narrowing. Neck MRI:Normal cervical cord signal and caliber. Multilevel degenerative disc disease with posterior disc osteophyte complexes that contact the ventral aspect of the cord with mild to moderate multilevel central canal stenosis. Severe multilevel neural foraminal stenosis Throracic MRI: Severe degenerative disc change throughout the entire thoracic region. Multilevel bulging disc and posterior osteophyte complexes creating only minimal impact upon the anterior thoracic cord and neural foramina. No evidence for significant component of spinal or foraminal stenotic change. Had negative Lyme Screen. Patient was seen by neurology and on 07/16/2018 [place] [facility] [place]ill[place] syndrome and was discharged home on 07/18/2018. During that hospitalization no IVIG was given. 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 Patient statin was placed on hold by PCP 07/22/2018. Patient states his been doing physical therapy at home as he did not qualify for inpatient rehab with his insurance. Patient reports he was doing okay and then over the past 2 days he started with tingling sensation to hip/thigh which radiates down both legs and is followed by leg weakness when he is ambulating. Patient states his been using a walker to ambulate and has had to falls yesterday and 2 falls today. Patient states they have been assisted falls and a family member has been there to help lower him to the ground. Denies hitting head, denies dizziness prior to falls. He reports he continues with numbness sensation to bilateral hands which has been unchanged. Denies any noted upper extremity weakness. Patient has not noticed any significant melena, he reports his stools are always a little dark secondary to iron supplement. Denies any epistaxis, hematuria, hematochezia. Pt states prior to onset of leg weakness on 07/13/18 he had a cough a week or two prior which had resolved. Denies fever/chills, diaphoresis, N/V/D/C, THAKKAR, dizziness, syncope, vision changes, neck pain, CP, SOB, orthopnea, palpitations, current cough, sore throat, choking, otalgia, rhinorrhea, abdominal pain, extremity edema, rashes, urinary symptoms. History EGD 11/2017: Distal esophagitis, mild erythematous mucosa without bleeding gastric antrum 2011 colonoscopy: Internal hemorrhoids, diverticulosis, 5 mm polyp sigmoid colon Admission Exam Per Admitting Provider General: no distress, WDWN Head: normocephalic, atraumatic Eyes: PERRL, EOM's intact, conjunctiva non-injected, anicteric ENT: normal inspection external ears, nose, mucous membranes moist Neck: supple, trachea midline Lungs: clear, no respiratory distress, no wheezing/rhonchi/rales CV: RRR, no murmur, no JVD, no pretibial edema Chest: Left lower anterior ribs with green color ecchymosis without any tenderness to palpation Back: No tenderness to palpation Abd: normal BS, soft, non-tender Ext: no cyanosis, no calf tenderness; upper extremities with equal strength bilaterally; strength testing of lower extremities while patient supine in bed does not elicit one-sided weakness, hyporeflexic patellar reflex Neuro: A&O x 3, no other focal deficits noted, normal affect Skin: warm, dry, multiple ecchymosis noted to bilateral arms and legs Principal Diagnosis anemia- acute blood loss + chronic anemia secondary to CKD hemorrhagic gastritis + duodenitis colonic polyps- tubular adenomas lower extremity weakness / ambulatory dysfunction CKD IV DM type 2 with neuropathy Discharge Exam Constitutional no acute distress Respiratory no respiratory distress Auscultation: lungs clear to auscultation bilaterally Cardiovascular Rate/Rhythm: regular rate and regular rhythm Vessels: no JVD Extremities: no calf tenderness and no edema Gastrointestinal (Abdomen) normal bowel sounds, soft, nontender, no hepatosplenomegaly Musculoskeletal Extremities: + abnormal strength (mild weakness of hip flexion bilat) Skin no rashes, warm and dry Psychiatric Orientation: alert and oriented x 3 Discharge Data Allergies Allergy/AdvReac Type Severity Reaction Status Date / Time sitagliptin Allergy Unknown LIGHTHEADEDNESS Verified 07/28/18 10:29 AND PAINS IN UPPER STOMACH Consultations 07/24/18 18:03 ED Decision to Admit Stat 07/24/18 21:47 Consult Case Management - Discharge Planning Routine Consult Gastroenterology Routine 07/25/18 17:12 Consult Neurology Routine Procedures Performed Operation Date: 07/28/18 08:30 Actual Procedures p EGD Biopsy Cytology - Jose Ortega s Colonoscopy Polypectomy - Jose Ortega Ordered Studies 07/24/18 20:16 CT abd pelvis wo con Stat Hospital Course (1) Anemia: Chronic anemia, requiring transfusions on 2 occasions in past. Hgb 7.3 day of admission. Reported dark stools at home; stool heme + in ED. Anemia could be due to combination of CKD + chronic GI blood loss. Transfused with 2 units pRBC's. GI consulted. EGD 07/28- gastritis with hemorrhage, duodenal erosion. Colonoscopy 07/28- diverticulosis, polyps, internal hemorrhoids, no active bleeding. B12, folate OK. Fe and transferrin sat low. No oral iron at this time because of gastritis / duodenal erosion. Received IV Fe sucrose x 2 doses for total dose of 300 mg. Hgb day of discharge stable at 9.1. Recheck H/H and Fe levels in clinic. (2) Gastritis and duodenitis: EGD today- gastritis with hemorrhage, duodenal erosion. Bx for H pylori negative. Hold ASA. Need to review use of other possible gastric irritants. PPI BID x 2 months. F/U per GI. (3) Colonic polyp: Colonoscopy 07/28/18. Found to have polyps in transverse and ascending colon. Path = tubular adenoma. F/U per GI. (4) Weakness: Recent hospitalization for weakness of extremities, lower > upper. GBS considered. MR imaging of brain and entire spine unrevealing (had extensive degenerative disease of spine, but no significant cord compromise). Transferred to [facility] for further evaluation. EMG did not suggest GBS. [place] to possibly have statin myopathy (CPK in 700's). Apparently patient continued to take atorvastatin after DC from [facility]. Atorvastatin stopped several days prior to admission. Anemia possible contributing factor. Motor strength continues to improve. (5) Ambulatory dysfunction: Apparent statin myopathy as discussed above. PT / OT. (6) HTN (hypertension): Diuretic held. Continue carvedilol, hydralazine, amlodipine. (7) Chronic renal failure, stage 4 (severe): CKD IV with baseline creatinine around 3 and estimated GFR in high teens - 20's. Creatinine day of discharge was 2.79. Follow. (8) Hypokalemia: Serum K as low as 3.0. K day of discharge was 3.3. Received 2 more doses of KCl this morning. Has history of CKD with hyperkalemia, so will not discharge on supplementation. Follow. (9) Diabetes mellitus, type II: DM type 2, managed with diet. Hgb A1C = 6.5 on 05/14/18. Blood sugars fluctuated. Received insulin coverage. FBS day of discharge was 157. Patient reluctant to start medications at this time, but may be warranted. Ongoing management as outpatient. (10) DVT prophylaxis: No anticoagulants due to heme + stools. SCD's. Anticoagulate. (11) Discharge planning issues: PT recommends skilled care or rehab, but patient prefers DC to home. Case Management assisting with discharge planning. Family Medicine follow-up with Dr. Fiona Novoa. Nephrology follow-up with Dr. Carpenter. Total Time Total Time Spent Total Time Spent (In Minutes): 40 Discharge Plan Discharge Items Patient Disposition: Home - Home Health Services Reason For Visit: weakness Discharge Diagnosis: severe anemia gastritis (inflammation of stomach) Condition: Good Discharge Goals: Decrease discomfort and Improve function Activity: As commented below Activity Comment: be careful not to fall; use walker and assistance Non-emergency contact: Primary Care Provider and Hospitalist Call non-emergency contact if: you have any medication questions and your symptoms worsen Follow-up/Referrals: Brooklyn Carpenter MD, PhD [Physician] - Fiona Novoa DO [Primary Care Provider] - (08/05/2018 10:30 AM Fiona Novoa DO) Vadim Phillips DO [Physician] - (08/19/2018 2:20 PM Vadim Phillips DO) Diet: Carb Consistent or DM2 and Heart Healthy Addtl Provider Instructions: Be careful not to fall. Use walker and have someone help you when walking. You had bad inflammation in your stomach called gastritis. That is where you were losing the blood from. Gastroenterology Department will notify you about a repeat endoscopy. Take pantoprazole (Protonix) to control your stomach acid for 2 months, then resume ranitidine (Zantac). Hold aspirin for 3 more days, then resume. Do not take ferrous sulfate (iron pills) for 2 weeks. They can irritate your stomach. Do not use anti-inflammatory medications like ibuprofen (Advil or Motrin) or naproxen (Aleve). They can cause gastritis or ulcers. You had some polyps in your colon. Gastroenterology Department will notify you about a repeat colonoscopy. Watch your blood sugars and share results with Dr. Novoa. Seek medical attention if you have: * temperature above 101 * chest pain or trouble breathing * abdominal pain, nausea, vomiting * diarrhea, dark stools or bloody stools * any unanswered questions or concerns Call [phone] if symptoms are severe. Call if you have any questions or problems. My cell # is [phone]. You can also reach a [facility] hospitalist on duty at [facility] 24 hours a day by calling [phone]. Prescriptions: New pantoprazole 40 mg tablet,delayed release (DR/EC) 40 mg PO BID Qty: 60 RF: 1 Continued carvedilol [Coreg] 12.5 mg Tablet 12.5 mg PO BID RF: 0 amlodipine [Norvasc] 10 mg Tablet 10 mg PO QAM RF: 0 hydralazine 100 mg Tablet 100 mg PO TID RF: 0 ferrous sulfate 325 mg (65 mg iron) Tablet 325 mg PO BID RF: 0 cholecalciferol (vitamin D3) [Vitamin D3] 1,000 unit Tablet 1,000 unit PO QAM RF: 0 paroxetine HCl [Paxil] 20 mg Tablet 20 mg PO DAILY RF: 0 aspirin [Aspir-81] 81 mg Tablet,Delayed Release (Dr/Ec) 81 mg PO DAILY RF: 0 hydrocodone-acetaminophen [[place]] 5-325 mg Tablet 1 tab PO Q6H PRN (Reason: Pain) RF: 0 torsemide 10 mg Tablet 10 mg PO DAILY RF: 0 acetaminophen [Tylenol Extra Strength] 500 mg Tablet 1,000 mg PO BID PRN (Reason: Pain) RF: 0 Discontinued ranitidine HCl 150 mg Tablet 150 mg PO BID RF: 0 Stand-Alone Forms: [facility] Discharge Orders: Discharge Order (Routine); Ordered 07/30/18 Ordered By: Galen Sheldon Admission Data Admit Date/Time: 07/24/18 20:10 Attending Provider: Galen Sheldon Admit Provider: Heidi Mueller Primary Care Provider: Fiona Novoa Other Providers: Heidi Mueller ; Agnes Shaffer ; Marc Bernal ; Cassi Romano ; Jose Ortega ; Essence Bagley ; Araceli Rios ; Anna Marie Osullivan ; Rodrigo Orta ; Jose E Rubio ; Katherin Bansal ; Karma Castaneda ; Yana Lopes ; Svetlana Adams ; Keon Miller ; Ana Gonzales ; Katie Hinson Service: Telemetry Other Interventions: Discharge Summary Assessment (RN) Last Done: 07/30/18 17:13 DC Date/Time DO NOT enter until pt leaves facility: 07/30/18 17:33
== END 2018-07-30 17:33 | disposition home health service (06) | DRG 378 ==
LOC: ED 16:00 → SUATTDRO 20:10 → 2S 20:10

== ENCOUNTER 2020-09-12 15:20 | Inpatient (IN) ==
[2020-09-12 16:03] LABS: Basophils # (auto) 0.01 K/uL (0-0.2); Basophils % (auto) 0.1 %; Eosinophils # (auto) 0.02 K/uL (0-0.5); Eosinophils % (auto) 0.2 %; Hematocrit (blood only) 30.3 % (42-52); Hemoglobin 10.6 g/dL (14.0-18.0); Immature Granulocytes # (auto) 0.07 K/uL (0.00-0.02); Immature Granulocytes % (auto) 0.8 %; Lymphocytes # (auto) 1.04 K/uL (1.2-3.4); Lymphocytes % (auto) 11.4 %; Mean Corpuscular Hemoglobin 30.8 pg (25-34); Mean Corpuscular Volume 88.1 fL (80-100); Mean Platelet Volume 10.4 fL (7.4-10.4); Monocytes # (auto) 1.51 K/uL (0.11-0.59); Monocytes % (auto) 16.6 %; Neutrophils # (auto) 6.46 K/uL (1.4-6.5); Neutrophils % (auto) 70.9 %; Platelet Count 205 K/uL (130-400); RDW Coefficient of Variation 12.9 % (11.5-14.5); RDW Standard Deviation 41.4 fL (36.4-46.3); Red Blood Count 3.44 M/uL (4.7-6.1); White Blood Count 9.11 K/uL (4.8-10.8)
[2020-09-12 16:19] LABS: Albumin Level 3.9 gm/dl (3.4-5.0); BUN Creatinine Ratio 19.2 (10-20); Calcium 8.7 mg/dl (8.5-10.1); Creatinine Clr Calc Pharmacy 17.8 ml/min; Est GFR (African American) 17.1 ml/min; Est GFR (Non-African American) 14.8 ml/min; Magnesium 2.3 mg/dl (1.8-2.4); Potassium 4.1 mmol/L (3.5-5.1)
[2020-09-12 16:31] LABS: Bilirubin,Total 0.5 mg/dl (0.2-1); Phosphorus 4.4 mg/dl (2.5-4.9); Thyroid Stimulating Hormone 0.915 uIu/ml (0.300-4.500); Total Protein 7.9 gm/dl (6.4-8.2)
[2020-09-12] MEDS ORDERED: SODIUM CHLORIDE 0.9% 250 ML IV ONE (17:07)
--- NOTE | 2020-09-12 17:36 | CT Scan Report ---
ABDOMEN AND PELVIS CT WITHOUT CONTRAST CT DOSE: 324.20 mGy.cm HISTORY: elevated lipase, chronic kidney disease, recent n/v TECHNIQUE: Multiaxial CT images of the abdomen and pelvis were performed without contrast. A dose lo wering technique was utilized adhering to the principles of ALARA. COMPARISON STUDY: Abdomen and pelvis CT 07/24/2018. FINDINGS: Trace bilateral pleural effusions. No pneumoperitoneum. No pneumatosis. A few punctate calc ifications within the liver and spleen. Bilateral adrenal gland thickening, unchanged. This is likely chronic. The unenhanced pancreas and gallbladder are unremarkable. There are few punctate bilateral renal calculi. Chronic mild bilateral perinephric edema is again noted. No ureteral stones. No hydron ephrosis. The bladder is unremarkable. A penile implant is noted. No retroperitoneal lymphadenopathy. Moderate calcified plaque within the normal caliber abdominal aorta. No pelvic free fluid. Small fat -containing right inguinal hernia. No pelvic lymphadenopathy. There is suboptimal evaluation for mario l pathology due to the lack of intravenous and oral contrast. However, there is no definite bowel wal l thickening or obstruction. Colonic diverticulosis. No evidence for acute diverticulitis. Normal nicanor endix. There is a 3 cm diverticulum at the second portion of the duodenum. Questionable thickening at the sigmoid colon is likely due to muscular hypertrophy from the diverticulosis. IMPRESSION: 1. No definite bowel wall thickening or obstruction. 2. Colonic diverticulosis. No evidence for acute diverticulitis. 3. Normal appendix. 4. Bilateral nephrolithiasis. No ureteral stones. No hydronephrosis. 5. Additional stable findings as described above. ACT 112: Negative or not required by law. Electronically signed by: Pablo Brown M.D. 09/12/2020 5:35 PM
[2020-09-12] MEDS ORDERED: ACETAMINOPHEN 325 MG TAB PO PRN (17:46)
[2020-09-12] MEDS ORDERED: POLYETHYLENE (MIRALAX) 17 GM PACK PO PRN (17:46)
--- NOTE | 2020-09-12 17:58 | History & Physical Report ---
Date of Service September 12, 2020 Assessment & Plan (1) CKD (chronic kidney disease) stage 5, GFR less than 15 ml/min: (2) Hyponatremia: Pt presents with Na level 122 Sent in by nephrology for close monitoring and work-up urine sodium, urine osm - pending received 250 NS cc in ED follow BMP stat Nephrology consulted ?ANI, CKD stage V - plan for peritoneal dialysis, and on transplant list Follows w/ Dr. Carpenter (nephrology) current Cr 3.8 Cont. to monitor renal function Nausea/vomiting - now resolved - no abd. pain, no diarrhea - lipase 1100 - CT abdomen/ pelvis unremarkable - not likely pancreatitis as no abd. pain HTN - cont. home medications DM type 2 - currently on no medications - diet controlled Anemia - chronic anemia in setting of CKD - baseline Hgb ~10, now unchanged - Hgb earlier in August 9.9 per outpt - cont. to monitor DVT ppx: SCDs History of Present Illness Chief Complaint: Hyponatremia, ANI Primary Care Provider: Fiona Novoa DO Mr. Jack is a 75-year-old male with a history of hypertension, diabetes mellitus, diet-controlled, CKD stage V, who now presents with hyponatremia, possible ANI. Patient reports feeling nauseous and vomiting yesterday and day before yest erday. However no abdominal pain, diarrhea, fevers or chills. Says he often has nausea when he drinks a lot of water all at once. Reports that is what he was doing at home - that he drank a lot of water at once, and then became nauseated and vomited. He got his blood work done today, and was found to have low sodium of 124. 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 Carpenter sent him to the ED for further evaluation and close monitoring. Currently patient is sitting up in bed, and denies any concerning symptoms. Still denies any fevers, chills, chest pain, abdominal pain, nausea or vomiting, diarrhea. No headache or dizziness. Says that he overall feels well. In ED sodium was found to be 122, and also lipase elevated at 1100. CT scan of the abdomen pelvis obtained. Patient received 250 cc of normal saline. Allergies Allergy/AdvReac Type Severity Reaction Status Date / Time sitagliptin Allergy Intermediate LIGHTHEADEDNESS Verified 09/12/20 18:32 AND PAINS IN UPPER STOMACH Home Medications Medication Instructions Recorded Confirmed Type amlodipine [Norvasc] 10 mg PO QAM 11/27/17 09/12/20 History ferrous sulfate 325 mg PO UD 11/27/17 09/12/20 History hydralazine 100 mg PO TID 11/27/17 09/12/20 History aspirin [Aspir-81] 81 mg PO QAM 07/24/18 09/12/20 History cholecalciferol (vitamin D3) 1,000 unit PO BID 10/27/18 09/12/20 History [Vitamin D3] cyanocobalamin (vitamin B-12) 1,000 mcg PO QDL 10/27/18 09/12/20 History [Vitamin B-12] carvedilol [Coreg] 25 mg PO BID 06/01/20 09/12/20 History famotidine 20 mg PO Q OTHER DAY 06/01/20 09/12/20 History furosemide 40 mg PO DAILY 09/12/20 09/12/20 History Past Med/Surg History Medical History Anemia Anxiety Chronic kidney disease (CKD), stage V pt states he has not started dialysis yet but is starting to set things up for dialysis in the near future--follows with Dr. Brooklyn Redman with [facility] Colonic polyp Depression Diabetes mellitus, type II diet controlled--per pt taken off meds d/t severe kidney disease Gastric ulcer History of GI bleed History of Helicobacter pylori infection HTN (hypertension) Hyperlipidemia Hypokalemia Surgical History History of cataract surgery bilt History of esophagogastroduodenoscopy (EGD) (~11/03/18) S/P colonoscopy (~07/28/18) with polypectomy Family History Mother Diabetes Breast cancer Family history of diabetes mellitus Father Family history of diabetes mellitus Other No family history of adverse response to anesthesia Social History Smoking Status: Former smoker Tobacco Type: Cigarettes Cigarettes Per Day: 2004; Second Hand Exposure: No; Hx Alcohol Use: Yes Alcohol type: beer Alcohol Intake Frequency Comment: 3-4 beers a week Hx Substance Use: No Preferred Language: [place] Communication Ability: Effective Visual Impairment: No Limitations Newspaper Photographer Required: No Beliefs That Will Affect Care: None marital status: / Current Living Situation: Alone Feels Safe at Home: Yes Assistive Devices: Denture - Upper and Glasses Review of Systems Review of Systems: All systems reviewed & are unremarkable except as noted in HPI & below Constitutional: no fever and no chills Eyes: no problem reported Ear, Nose, Mouth, Throat: no problem reported Respiratory: no cough, no dyspnea and no problem reported Cardiovascular: no chest pain and no palpitations Gastrointestinal: no abdominal pain, no nausea and no vomiting Genitourinary: no problem reported Musculoskeletal: no problem reported Integumentary: no problem reported Neurologic: no problem reported Psychiatric: no problem reported Endocrine: no problem reported Hematologic / Lymphatic: no problem reported Allergy / Immunological: no problem reported Physical Exam Constitutional: WD/WN, vitals as above Eyes: PERRL, conjunctivae normal, anicteric sclerae ENMT: external ear and nose normal, oropharynx normal Neck: normal visual inspection Respiratory: normal respiratory effort, lungs clear to auscultation Cardiovascular: RRR, no murmur, no edema Chest (Breasts): Chest: normal inspection of chest Gastrointestinal (Abdomen): Inspection/Auscultation: abdomen normal to ins pection and normal bowel sounds; abdomen not distended Percussion/Palpation: abdomen soft; abdomen nontender, no guarding and abdomen not rigid Musculoskeletal: no cyanosis or clubbing, extremities motor strength 5/5 Head/Neck/Chest: normocephalic and head atraumatic Skin: no rashes, warm and dry Neurologic: PERRL, EOMI, accommodation nl, no face palsy, no dysarthria Psychiatric: A+Ox3, euthymic affect Genitourinary: no CVA tenderness Lymphatic: no lymphadenopathy Results & Data Results & Data ([facility]) Vital Signs (Past 12 Hours) Vital Signs Temp Pulse Resp BP Pulse Ox 09/12/20 16:30 25 H 09/12/20 16:29 68 21 142/77 H 97 09/12/20 16:02 60 16 09/12/20 15:39 36.7 C 66 20 141/62 H 96 Laboratory Results 09/12/20 09/12/20 09/12/20 Range/Units 16:17 15:50 15:50 WBC 9.11 (4.8-10.8) K/uL RBC 3.44 L (4.7-6.1) M/uL Hgb 10.6 L (14.0-18.0) g/dL Hct 30.3 L (42-52) % MCV 88.1 (80-100) fL MCH 30.8 (25-34) pg MCHC 35.0 (32-36) g/dL RDW Std Deviation 41.4 (36.4-46.3) fL RDW Coeff of Juma 12.9 (11.5-14.5) % Plt Count 205 (130-400) K/uL MPV 10.4 (7.4-10.4) fL Immature Gran % (Auto) 0.8 % Neut % (Auto) 70.9 % Lymph % (Auto) 11.4 % Price % (Auto) 16.6 % Eos % (Auto) 0.2 % Baso % (Auto) 0.1 % Neut # (Auto) 6.46 (1.4-6.5) K/uL Lymph # (Auto) 1.04 L (1.2-3.4) K/uL Price # (Auto) 1.51 H (0.11-0.59) K/uL Eos # (Auto) 0.02 (0-0.5) K/uL Baso # (Auto) 0.01 (0-0.2) K/uL Immature Gran # (Auto) 0.07 H (0.00-0.02) K/uL Sodium 122 L (136-145) mmol/L Potassium 4.1 (3.5-5.1) mmol/L Chloride 88 L (98-107) mmol/L Carbon Dioxide 24 (21-32) mmol/L Anion Gap 10.0 (3-11) BUN 72 H (7-18) mg/dl Creatinine 3.74 H (0.6-1.4) mg/dl Est Cr Clr Drug Dosing 17.8 ml/min Est GFR ( Amer) 17.1 ml/min Est GFR (Non-Af Amer) 14.8 ml/min BUN/Creatinine Ratio 19.2 (10-20) Glucose 152 H (70-99) mg/dl Osmolality 290 (280-300) mOsm/kg Calcium 8.7 (8.5-10.1) mg/dl Phosphorus 4.4 (2.5-4.9) mg/dl Magnesium 2.3 (1.8-2.4) mg/dl Total Bilirubin 0.5 (0.2-1) mg/dl AST 12 L (15-37) U/L ALT 20 (12-78) U/L Alkaline Phosphatase 115 (45-117) U/L Total Protein 7.9 (6.4-8.2) gm/dl Albumin 3.9 (3.4-5.0) gm/dl Globulin 4.0 (2.5-4.0) gm/dl Albumin/Globulin Ratio 1.0 (0.9-2) Lipase 1140 H (73-393) U/L TSH 0.915 (0.300-4.500) uIu/ml Diagnostic Findings CT Abdomen / pelvis w/o contrast IMPRESSION: 1. No definite bowel wall thickening or obstruction. 2. Colonic diverticulosis. No evidence for acute diverticulitis. 3. Normal appendix. 4. Bilateral nephrolithiasis. No ureteral stones. No hydronephrosis. 5. Additional stable findings as described above.
[2020-09-12 18:25] LABS: Appearance Urine Clear (Clear); Bacteria Urine Automated Negative (Negative); Bilirubin Urine Negative (Negative); Blood Urine Negative (Negative); Cast Urine Automated 0 /lpf (0-5); Color Urine Yellow; Epithelial Cell Urine Auto 0-5 /lpf (0-5); Glucose Urine UA Negative (Negative); Ketones Urine Negative (Negative); Leukocyte Esterase Urine Negative (Negative); Nitrite Urine Negative (Negative); Protein Urine 2+ (Negative); RBC Urine Automated 0-4 /hpf (0-4); Specific Gravity Urine 1.009 (1.000-1.030); Urobilinogen Urine Negative (Negative); WBC Urine Automated 0 /hpf (0-5)
[2020-09-12 19:13] LABS: BUN Creatinine Ratio 19.5 (10-20); Calcium 8.8 mg/dl (8.5-10.1); Creatinine Clr Calc Pharmacy 17.9 ml/min; Est GFR (African American) 17.2 ml/min; Est GFR (Non-African American) 14.8 ml/min; Potassium 3.9 mmol/L (3.5-5.1)
[2020-09-12] MEDS ORDERED: SODIUM BICARBONATE 650 MG TAB PO SCH (21:00)
[2020-09-12] MEDS: carvediloL 25 MG TAB PO SCH (21:06)
[2020-09-12] MEDS: CHOLECALCIFEROL 1,000 UNITS 25 MCG TAB PO SCH (21:06)
[2020-09-12] MEDS: hydrALAZINE TAB 50 MG TAB PO SCH (21:07)
[2020-09-12] MEDS: FAMOTIDINE 20 MG TAB PO SCH (21:08)
[2020-09-12] MEDS ORDERED: SODIUM CHLORIDE 0.9% 1000ML 500 ML IV SCH (21:30)
--- NOTE | 2020-09-12 21:30 | Emergency Department Note ---
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 Patient states for the past 2 days has been experiencing some nausea and vomiting. Denies significant abdominal pain. Stat es today the symptoms are resolved and he is feeling better. Patient denies any fatigue, memory issues, confusion, unsteadiness, or other issues. Patient states he is urinating well and did eat okay today. Patient states was called by his doctor after he discussed with him his symptoms and had blood work this morning and told to come in at his sodium was off. REVIEW OF SYSTEMS: A total of 10 review of systems was obtained and negative except as stated above in the HPI. PAST MEDICAL HISTORY: As noted above MEDICATIONS: Reviewed home medication list SOCIAL HISTORY: Former smoker, , occasional alcohol PHYSICAL EXAM: GENERAL: alert and oriented in no acute distress on stretcher Head: normocephalic and atraumatic EYES: No injection, discharge or icterus. NECK: Trachea midline. LUNGS: Airway patent. No retractions. Breath sounds clear with good air entry bilaterally. HEART: Regular rate and rhythm. No chest wall tenderness ABDOMEN: Soft and non-tender, without guarding or rebound. No hepatosplenomegaly or masses SKIN: Acyanotic, warm, dry, without rashes EXTREMITIES: Without swelling, tenderness or deformity NEUROLOGICAL: No focal deficits. No aphasia. No facial droop or slurred speech. Sensation to gross touch normal. Patient's laboratory studies and imaging reviewed. Differential includes Infection, dehydration, metabolic abnormality, hypo/hyperglycemia, electrolyte disturbance, anemia, hypoxia, cardiac sources, intracerebral event, toxicologic, neurologic, as well as other pathologies. IMPRESSION/MEDICAL DECISION MAKING: Patient presents with outside laboratory abnormalities 2 days of some nausea vomiting but now resolved today. Denies any abdominal pain. Denies any fever. History of CKD. Blood work repeated here does confirm actually slightly worsened hyponatremia of 122. Does not seem that significantly symptomatic however is a significant drop for him. Does have evidence of an acute kidney injury on top of his chronic kidney disease as well. Given a very small fluid bolus. Lipase is slightly elevated and did complete a CT abdomen pelvis without significant acute findings. Given his lack of pain in the CT less likely pancreatitis. Given the lab abnormalities however, discussed with the patient he was amenable to being admitted for further evaluation. The hospitalist was contacted. DIAGNOSIS: Hyponatremia, elevated lipase, ANI on CKD DISPOSITION: Hospitalist will evaluate Patient was agreeable with this plan. Past Med/Surg History Medical History Anemia Anxiety Chronic kidney disease (CKD), stage V pt states he has not started dialysis yet but is starting to set things up for dialysis in the near future--follows with Dr. Brooklyn Redman with [facility] Colonic polyp Depression Diabetes mellitus, type II diet controlled--per pt taken off meds d/t severe kidney disease Gastric ulcer History of GI bleed History of Helicobacter pylori infection HTN (hypertension) Hyperlipidemia Hypokalemia Surgical History History of cataract surgery bilt History of esophagogastroduodenoscopy (EGD) (~11/03/18) S/P colonoscopy (~07/28/18) with polypectomy Family History Mother Diabetes Breast cancer Family history of diabetes mellitus Father Family history of diabetes mellitus Other No family history of adverse response to anesthesia Social History Smoking Status: Former smoker Tobacco Type: Cigarettes Cigarettes Per Day: 2004; Second Hand Exposure: No; Hx Alcohol Use: Yes Alcohol type: beer Alcohol Intake Frequency Comment: 3-4 beers a week Hx Substance Use: No Preferred Language: Mongolian Communication Ability: Effective Visual Impairment: No Limitations Med Dir Required: No Beliefs That Will Affect Care: None marital status: / Current Living Situation: Alone Feels Safe at Home: Yes Assistive Devices: Denture - Upper and Glasses Allergies Allergies Allergy/AdvReac Type Severity Reaction Status Date / Time sitagliptin Allergy Intermediate LIGHTHEADEDNESS Verified 09/12/20 18:32 AND PAINS IN UPPER STOMACH Home Meds Home Medications Medication Instructions Recorded Confirmed amlodipine [Norvasc] 10 mg PO QAM 11/27/17 09/12/20 ferrous sulfate 325 mg PO DAILY 11/27/17 09/12/20 hydralazine 100 mg PO TID 11/27/17 09/12/20 aspirin [Aspir-81] 81 mg PO QAM 07/24/18 09/12/20 cholecalciferol (vitamin D3) 1,000 unit PO BID 10/27/18 09/12/20 [Vitamin D3] cyanocobalamin (vitamin B-12) 1,000 mcg PO QDL 10/27/18 09/12/20 [Vitamin B-12] carvedilol [Coreg] 25 mg PO BID 06/01/20 09/12/20 famotidine 20 mg PO Q OTHER DAY 06/01/20 09/12/20 furosemide 40 mg PO DAILY 09/12/20 09/12/20 sodium bicarbonate 1,300 mg PO BID 09/12/20 09/12/20 Results & Data (ED) Vital Signs Vital Signs - 24 hr 09/12/20 15:39 09/12/20 16:02 09/12/20 16:29 Temperature 36.7 C Temperature Source Oral Pulse Rate 66 60 68 Pulse Rate from SpO2 Sensor 67 Respiratory Rate 20 16 21 Respiratory Effort / Characteristics Non-Labored Spontaneous Respiratory Depth Normal Respiratory Pattern Regular Blood Pressure 141/62 H 142/77 H Blood Pressure Mean 88 98 Pulse Oximetry 96 97 Oxygen Delivery Method Room Air Sepsis Recent Fever Within 48 Hours No Sepsis New/Unexplained Change in Mental Status N/A Sepsis Action Taken by Nursing No Action Required 09/12/20 16:30 09/12/20 17:00 09/12/20 17:01 Temperature Temperature Source Pulse Rate 76 65 Pulse Rate from SpO2 Sensor 75 68 Respiratory Rate 25 H 21 19 Respiratory Effort / Characteristics Respiratory Depth Respiratory Pattern Blood Pressure 156/93 H Blood Pressure Mean 114 Pulse Oximetry 98 98 Oxygen Delivery Method Sepsis Recent Fever Within 48 Hours Sepsis New/Unexplained Change in Mental Status Sepsis Action Taken by Nursing 09/12/20 17:30 09/12/20 17:31 Temperature Temperature Source Pulse Rate 73 74 Pulse Rate from SpO2 Sensor 76 73 Respiratory Rate 16 18 Respiratory Effort / Characteristics Respiratory Depth Respiratory Pattern Blood Pressure 162/83 H Blood Pressure Mean 109 Pulse Oximetry 98 98 Oxygen Delivery Method Sepsis Recent Fever Within 48 Hours Sepsis New/Unexplained Change in Mental Status Sepsis Action Taken by Nursing Laboratory Data Result diagrams: 09/12/20 15:50 09/12/20 18:32 Lab Results 09/12/20 09/12/20 09/12/20 Range/Units 15:50 15:50 16:17 WBC 9.11 (4.8-10.8) K/uL RBC 3.44 L (4.7-6.1) M/uL Hgb 10.6 L (14.0-18.0) g/dL Hct 30.3 L (42-52) % MCV 88.1 (80-100) fL MCH 30.8 (25-34) pg MCHC 35.0 (32-36) g/dL RDW Std Deviation 41.4 (36.4-46.3) fL RDW Coeff of Juma 12.9 (11.5-14.5) % Plt Count 205 (130-400) K/uL MPV 10.4 (7.4-10.4) fL Immature Gran % (Auto) 0.8 % Neut % (Auto) 70.9 % Lymph % (Auto) 11.4 % [place] % (Auto) 16.6 % Eos % (Auto) 0.2 % Baso % (Auto) 0.1 % Neut # (Auto) 6.46 (1.4-6.5) K/uL Lymph # (Auto) 1.04 L (1.2-3.4) K/uL [place] # (Auto) 1.51 H (0.11-0.59) K/uL Eos # (Auto) 0.02 (0-0.5) K/uL Baso # (Auto) 0.01 (0-0.2) K/uL Immature Gran # (Auto) 0.07 H (0.00-0.02) K/uL Sodium 122 L (136-145) mmol/L Potassium 4.1 (3.5-5.1) mmol/L Chloride 88 L (98-107) mmol/L Carbon Dioxide 24 (21-32) mmol/L Anion Gap 10.0 (3-11) BUN 72 H (7-18) mg/dl Creatinine 3.74 H (0.6-1.4) mg/dl Est Cr Clr Drug Dosing 17.8 ml/min Est GFR ( Amer) 17.1 ml/min Est GFR (Non-Af Amer) 14.8 ml/min BUN/Creatinine Ratio 19.2 (10-20) Glucose 152 H (70-99) mg/dl Osmolality 290 (280-300) mOsm/kg Calcium 8.7 (8.5-10.1) mg/dl Phosphorus 4.4 (2.5-4.9) mg/dl Magnesium 2.3 (1.8-2.4) mg/dl Total Bilirubin 0.5 (0.2-1) mg/dl AST 12 L (15-37) U/L ALT 20 (12-78) U/L Alkaline Phosphatase 115 (45-117) U/L Total Protein 7.9 (6.4-8.2) gm/dl Albumin 3.9 (3.4-5.0) gm/dl Globulin 4.0 (2.5-4.0) gm/dl Albumin/Globulin Ratio 1.0 (0.9-2) Lipase 1140 H (73-393) U/L TSH 0.915 (0.300-4.500) uIu/ml COVID-19 Eval Order SARS-CoV-2 (PCR) (Negative) 09/12/20 09/12/20 Range/Units 17:37 17:37 WBC (4.8-10.8) K/uL RBC (4.7-6.1) M/uL Hgb (14.0-18.0) g/dL Hct (42-52) % MCV (80-100) fL MCH (25-34) pg MCHC (32-36) g/dL RDW Std Deviation (36.4-46.3) fL RDW Coeff of Juma (11.5-14.5) % Plt Count (130-400) K/uL MPV (7.4-10.4) fL Immature Gran % (Auto) % Neut % (Auto) % Lymph % (Auto) % [place] % (Auto) % Eos % (Auto) % Baso % (Auto) % Neut # (Auto) (1.4-6.5) K/uL Lymph # (Auto) (1.2-3.4) K/uL [place] # (Auto) (0.11-0.59) K/uL Eos # (Auto) (0-0.5) K/uL Baso # (Auto) (0-0.2) K/uL Immature Gran # (Auto) (0.00-0.02) K/uL Sodium (136-145) mmol/L Potassium (3.5-5.1) mmol/L Chloride (98-107) mmol/L Carbon Dioxide (21-32) mmol/L Anion Gap (3-11) BUN (7-18) mg/dl Creatinine (0.6-1.4) mg/dl Est Cr Clr Drug Dosing ml/min Est GFR ( Amer) ml/min Est GFR (Non-Af Amer) ml/min BUN/Creatinine Ratio (10-20) Glucose (70-99) mg/dl Osmolality (280-300) mOsm/kg Calcium (8.5-10.1) mg/dl Phosphorus (2.5-4.9) mg/dl Magnesium (1.8-2.4) mg/dl Total Bilirubin (0.2-1) mg/dl AST (15-37) U/L ALT (12-78) U/L Alkaline Phosphatase (45-117) U/L Total Protein (6.4-8.2) gm/dl Albumin (3.4-5.0) gm/dl Globulin (2.5-4.0) gm/dl Albumin/Globulin Ratio (0.9-2) Lipase (73-393) U/L TSH (0.300-4.500) uIu/ml COVID-19 Eval Order Covid19 at [facility] SARS-CoV-2 (PCR) NEGATIVE (Negative) Administered Medications Carvedilol (Carvedilol 25 Mg Tab) 25 mg PO BID [place] Stop: 10/12/20 20:59 Last Admin: 09/12/20 21:06 Dose: 25 mg Documented by: [id number] Famotidine (Famotidine 20 Mg Tab) 20 mg PO Q48H [place] Stop: 10/12/20 20:59 Last Admin: 09/12/20 21:08 Dose: 20 mg Documented by: [id number] Hydralazine HCl (Hydralazine Tab 50 Mg Tab) 100 mg PO TID [place] Stop: 10/12/20 20:59 Last Admin: 09/12/20 21:07 Dose: 100 mg Documented by: [id number] Sodium Bicarbonate (Sodium Bicarbonate 650 Mg Tab) 1,300 mg PO BID [place] Stop: 10/12/20 20:59 Last Admin: 09/12/20 21:08 Dose: 1,300 mg Documented by: [id number] Vitamin D (Cholecalciferol 1,000 Units 25 Mcg Tab) 1,000 units PO BID [place] Stop: 10/12/20 20:59 Last Admin: 09/12/20 21:06 Dose: 1,000 units Documented by: [id number] Discontinued Medications Sodium Chloride (Nss) 250 mls @ 999 mls/hr IV .Q16M ONE Stop: 09/12/20 17:22 Last Infusion: 09/12/20 17:47 Dose: 0 mls/hr Documented by: [id number] Admin: 09/12/20 17:28 Dose: 999 mls/hr Documented by: [id number] Imaging Data Radiologist's Impression: Abdomen/Pelvis CT 09/12/20 16:[address] WITHOUT CONTRAST CT DOSE: 324.20 mGy.cm HISTORY: elevated lipase, chronic kidney disease, recent n/v TECHNIQUE: Multiaxial CT images of the abdomen and pelvis were performed without contrast. A dose lowering technique was utilized adhering to the principles of ALARA. COMPARISON STUDY: Abdomen and pelvis CT 07/24/2018. FINDINGS: Trace bilateral pleural effusions. No pneumoperitoneum. No pneumatosis. A few punctate calcifications within the liver and spleen. Bilateral adrenal gland thickening, unchanged. This is likely chronic. The unenhanced pancreas and gallbladder are unremarkable. There are few punctate bilateral renal calculi. Chronic mild bilateral perinephric edema is again noted. No ureteral stones. No hydronephrosis. The bladder is unremarkable. A penile implant is noted. No retroperitoneal lymphadenopathy. Moderate calcified plaque within the normal caliber abdominal aorta. No pelvic free fluid. Small fat-containing right inguinal hernia. No pelvic lymphadenopathy. There is suboptimal evaluation for bowel pathology due to the lack of intravenous and oral contrast. However, there is no definite bowel wall thickening or obstruction. Colonic diverticulosis. No evidence for acute diverticulitis. Normal appendix. There is a 3 cm diverticulum at the second portion of the duodenum. Questionable thickening at the sigmoid colon is likely due to muscular hypertrophy from the diverticulosis. IMPRESSION: 1. No definite bowel wall thickening or obstruction. 2. Colonic diverticulosis. No evidence for acute diverticulitis. 3. Normal appendix. 4. Bilateral nephrolithiasis. No ureteral stones. No hydronephrosis. 5. Additional stable findings as described above. ACT 112: Negative or not required by law. Electronically signed by: Pablo Brown M.D. 09/12/2020 5:35 PM Discharge Plan Visit Data Chief Complaint: Abnormal Labs/Diagnostic Testing Stated Complaint: LOW SODIUM ED Provider: Mark Long Discharge Problem: Hyponatremia, Elevated lipase, Acute kidney injury superimposed on CKD Patient Disposition: Admitted As Inpatient Discharge Instructions Interventions: ED Discharge Assessment Last Done: 09/12/20 19:28
[2020-09-12] MEDS: ZOLPIDEM TARTRATE 5 MG TAB PO PRN (21:35)
[2020-09-13 04:49] LABS: Hematocrit (blood only) 27.4 % (42-52); Hemoglobin 9.6 g/dL (14.0-18.0); Mean Corpuscular Hemoglobin 30.2 pg (25-34); Mean Corpuscular Volume 86.2 fL (80-100); Mean Platelet Volume 10.7 fL (7.4-10.4); Platelet Count 181 K/uL (130-400); Red Blood Count 3.18 M/uL (4.7-6.1); White Blood Count 9.97 K/uL (4.8-10.8)
[2020-09-13 05:08] LABS: Calcium 8.1 mg/dl (8.5-10.1); Creatinine Clr Calc Pharmacy 18.6 ml/min; Est GFR (African American) 18.4 ml/min; Est GFR (Non-African American) 15.8 ml/min; Magnesium 2.2 mg/dl (1.8-2.4); Phosphorus 4.1 mg/dl (2.5-4.9); Potassium 3.5 mmol/L (3.5-5.1)
[2020-09-13] MEDS ORDERED: SODIUM CHLORIDE 0.9% 500 ML IV SCH (06:45)
[2020-09-13] MEDS: ASPIRIN 81 MG ECTAB PO SCH (07:35)
[2020-09-13] MEDS: FERROUS SULFATE 325 MG TAB PO SCH (07:35)
[2020-09-13] MEDS: amLODIPine BESYLATE 5 MG TAB PO SCH (07:35)
[2020-09-13] MEDS: carvediloL 25 MG TAB PO SCH ×2 (07:36→20:32)
[2020-09-13] MEDS: CHOLECALCIFEROL 1,000 UNITS 25 MCG TAB PO SCH ×2 (07:36→20:31)
[2020-09-13] MEDS: hydrALAZINE TAB 50 MG TAB PO SCH ×3 (07:36→20:32)
--- NOTE | 2020-09-13 07:40 | Hospitalist Progress Note ---
Date of Service September 13, 2020 Assessment & Plan (1) CKD (chronic kidney disease) stage 5, GFR less than 15 ml/min: (2) Hyponatremia: Pt presents with Na level 122 Sent in by nephrology for close monitoring and work-up urine sodium 39 , urine osm 285 received 250 NS cc in ED follow BMP stat na 122 Nephrology consulted Today (09/13) Na slightly improved 124 500cc of NS ordered by nephrology this AM Follow BMP Clinically pt continues to feel well ?ANI, CKD stage V - plan for peritoneal dialysis, and on transplant list Follows w/ Dr. Carpenter (nephrology) On admission Cr 3.7, now slightly improved 3.5/ BUN 70 Cont. to monitor renal function Nausea/vomiting - now resolved - no abd. pain, no diarrhea - lipase 1100 - CT abdomen/ pelvis unremarkable - not likely pancreatitis as no abd. pain HTN - cont. home medications DM type 2 - currently on no medications - diet controlled Anemia - chronic anemia in setting of CKD - baseline Hgb ~10, now unchanged - Hgb earlier in August 9.9 per outpt - cont. to monitor DVT ppx: SCDs Admission and Anticipated Discharge Date Admission Date: September 12, 2020 Subjective Patient seen in follow-up of hyponatremia Sodium somewhat improved today 124 500 cc of normal saline ordered by nephrology No acute events overnight Patient is lying in bed, no acute distress Denies any fevers, chills, chest pain, shortness of breath, abdominal pain, nausea, vomiting, dizziness, lightheadedness Reports eating good breakfast No abdominal pain after eating reported Review of Systems Review of Systems: All systems reviewed & are unremarkable except as noted in HPI & below Constitutional: no fever and no chills Respiratory: no cough and no dyspnea Cardiovascular: no chest pain and no palpitations Gastrointestinal: no abdominal pain, no nausea and no vomiting Physical Exam Constitutional: WD/WN, vitals as above Eyes: PERRL, conjunctivae normal, anicteric sclerae ENMT: external ear and nose normal, oropharynx normal Neck: normal visual inspection Respiratory: normal respiratory effort, lungs clear to auscultation Cardiovascular: RRR, no murmur, no edema Chest (Breasts): Chest: normal inspection of chest Gastrointestinal (Abdomen): Inspection/Auscultation: abdomen normal to inspection and normal bowel sounds; abdomen not distended Percussion/Palpation: abdomen soft; abdomen nontender, no guarding and abdomen not rigid Musculoskeletal: no cyanosis or clubbing, extremities motor strength 5/5 Head/Neck/Chest: normocephalic and head atraumatic Skin: no rashes, warm and dry Neurologic: PERRL, EOMI, accommodation nl, no face palsy, no dysarthria Psychiatric: A+Ox3, euthymic affect Genitourinary: no CVA tenderness Lymphatic: no lymphadenopathy Results & Data Results & Data ([facility]) Vital Signs (Past 12 Hours) Vital Signs Temp Pulse Pulse Pulse Resp BP Pulse Ox 09/13/20 07:01 36.7 C 67 19 164/69 H 97 09/13/20 03:09 36.5 C 59 L 18 152/63 H 98 09/13/20 02:23 72 09/12/20 22:51 36.6 C 69 18 159/62 H 96 09/12/20 20:04 75 09/12/20 19:49 36.3 C L 75 16 174/77 H 97 Laboratory Results 09/13/20 09/13/20 09/12/20 Range/Units 03:58 03:58 19:57 WBC 9.97 (4.8-10.8) K/uL RBC 3.18 L (4.7-6.1) M/uL Hgb 9.6 L (14.0-18.0) g/dL Hct 27.4 L (42-52) % MCV 86.2 (80-100) fL MCH 30.2 (25-34) pg MCHC 35.0 (32-36) g/dL RDW Std Deviation 41.0 (36.4-46.3) fL RDW Coeff of Juma 13.0 (11.5-14.5) % Plt Count 181 (130-400) K/uL MPV 10.7 H (7.4-10.4) fL Immature Gran % (Auto) % Neut % (Auto) % Lymph % (Auto) % Tripp % (Auto) % Eos % (Auto) % Baso % (Auto) % Neut # (Auto) (1.4-6.5) K/uL Lymph # (Auto) (1.2-3.4) K/uL Tripp # (Auto) (0.11-0.59) K/uL Eos # (Auto) (0-0.5) K/uL Baso # (Auto) (0-0.2) K/uL Immature Gran # (Auto) (0.00-0.02) K/uL Sodium 124 L (136-145) mmol/L Potassium 3.5 (3.5-5.1) mmol/L Chloride 93 L (98-107) mmol/L Carbon Dioxide 24 (21-32) mmol/L Anion Gap 7.0 (3-11) BUN 70 H (7-18) mg/dl Creatinine 3.53 H (0.6-1.4) mg/dl Est Cr Clr Drug Dosing 18.6 ml/min Est GFR ( Amer) 18.4 ml/min Est GFR (Non-Af Amer) 15.8 ml/min BUN/Creatinine Ratio 20.0 (10-20) Glucose 114 H (70-99) mg/dl POC Glucose 177 H (70-99) mg/dl Osmolality (280-300) mOsm/kg Calcium 8.1 L (8.5-10.1) mg/dl Phosphorus 4.1 (2.5-4.9) mg/dl Magnesium 2.2 (1.8-2.4) mg/dl Total Bilirubin (0.2-1) mg/dl AST (15-37) U/L ALT (12-78) U/L Alkaline Phosphatase (45-117) U/L Total Protein (6.4-8.2) gm/dl Albumin (3.4-5.0) gm/dl Globulin (2.5-4.0) gm/dl Albumin/Globulin Ratio (0.9-2) Lipase (73-393) U/L TSH (0.300-4.500) uIu/ml Urine Color Urine Appearance (Clear) Urine pH (4.5-7.5) Ur Specific Monroe (1.000-1.030) Urine Protein (Negative) Urine Glucose (UA) (Negative) Urine Ketones (Negative) Urine Blood (Negative) Urine Nitrite (Negative) Urine Bilirubin (Negative) Urine Urobilinogen (Negative) Ur Leukocyte Esterase (Negative) Urine WBC (Auto) (0-5) /hpf Urine RBC (Auto) (0-4) /hpf U Hyaline Cast (Auto) (0-5) /lpf U Epithel Cells (Auto) (0-5) /lpf Urine Bacteria (Auto) (Negative) Urine Osmolality (500-800) mOsm/kg Ur Random Sodium mmol/L COVID-19 Eval Order SARS-CoV-2 (PCR) (Negative) 09/12/20 09/12/20 09/12/20 Range/Units 18:32 18:15 18:15 WBC (4.8-10.8) K/uL RBC (4.7-6.1) M/uL Hgb (14.0-18.0) g/dL Hct (42-52) % MCV (80-100) fL MCH (25-34) pg MCHC (32-36) g/dL RDW Std Deviation (36.4-46.3) fL RDW Coeff of Juma (11.5-14.5) % Plt Count (130-400) K/uL MPV (7.4-10.4) fL Immature Gran % (Auto) % Neut % (Auto) % Lymph % (Auto) % Tripp % (Auto) % Eos % (Auto) % Baso % (Auto) % Neut # (Auto) (1.4-6.5) K/uL Lymph # (Auto) (1.2-3.4) K/uL Tripp # (Auto) (0.11-0.59) K/uL Eos # (Auto) (0-0.5) K/uL Baso # (Auto) (0-0.2) K/uL Immature Gran # (Auto) (0.00-0.02) K/uL Sodium 122 L (136-145) mmol/L Potassium 3.9 (3.5-5.1) mmol/L Chloride 89 L (98-107) mmol/L Carbon Dioxide 22 (21-32) mmol/L Anion Gap 11.0 (3-11) BUN 73 H (7-18) mg/dl Creatinine 3.73 H (0.6-1.4) mg/dl Est Cr Clr Drug Dosing 17.9 ml/min Est GFR ( Amer) 17.2 ml/min Est GFR (Non-Af Amer) 14.8 ml/min BUN/Creatinine Ratio 19.5 (10-20) Glucose 166 H (70-99) mg/dl POC Glucose (70-99) mg/dl Osmolality (280-300) mOsm/kg Calcium 8.8 (8.5-10.1) mg/dl Phosphorus (2.5-4.9) mg/dl Magnesium (1.8-2.4) mg/dl Total Bilirubin (0.2-1) mg/dl AST (15-37) U/L ALT (12-78) U/L Alkaline Phosphatase (45-117) U/L Total Protein (6.4-8.2) gm/dl Albumin (3.4-5.0) gm/dl Globulin (2.5-4.0) gm/dl Albumin/Globulin Ratio (0.9-2) Lipase (73-393) U/L TSH (0.300-4.500) uIu/ml Urine Color Urine Appearance (Clear) Urine pH (4.5-7.5) Ur Specific Monroe (1.000-1.030) Urine Protein (Negative) Urine Glucose (UA) (Negative) Urine Ketones (Negative) Urine Blood (Negative) Urine Nitrite (Negative) Urine Bilirubin (Negative) Urine Urobilinogen (Negative) Ur Leukocyte Esterase (Negative) Urine WBC (Auto) (0-5) /hpf Urine RBC (Auto) (0-4) /hpf U Hyaline Cast (Auto) (0-5) /lpf U Epithel Cells (Auto) (0-5) /lpf Urine Bacteria (Auto) (Negative) Urine Osmolality 285 L (500-800) mOsm/kg Ur Random Sodium 39 mmol/L COVID-19 Eval Order SARS-CoV-2 (PCR) (Negative) 09/12/20 09/12/20 09/12/20 Range/Units 18:15 17:37 17:37 WBC (4.8-10.8) K/uL RBC (4.7-6.1) M/uL Hgb (14.0-18.0) g/dL Hct (42-52) % MCV (80-100) fL MCH (25-34) pg MCHC (32-36) g/dL RDW Std Deviation (36.4-46.3) fL RDW Coeff of Juma (11.5-14.5) % Plt Count (130-400) K/uL MPV (7.4-10.4) fL Immature Gran % (Auto) % Neut % (Auto) % Lymph % (Auto) % Tripp % (Auto) % Eos % (Auto) % Baso % (Auto) % Neut # (Auto) (1.4-6.5) K/uL Lymph # (Auto) (1.2-3.4) K/uL Tripp # (Auto) (0.11-0.59) K/uL Eos # (Auto) (0-0.5) K/uL Baso # (Auto) (0-0.2) K/uL Immature Gran # (Auto) (0.00-0.02) K/uL Sodium (136-145) mmol/L Potassium (3.5-5.1) mmol/L Chloride (98-107) mmol/L Carbon Dioxide (21-32) mmol/L Anion Gap (3-11) BUN (7-18) mg/dl Creatinine (0.6-1.4) mg/dl Est Cr Clr Drug Dosing ml/min Est GFR ( Amer) ml/min Est GFR (Non-Af Amer) ml/min BUN/Creatinine Ratio (10-20) Glucose (70-99) mg/dl POC Glucose (70-99) mg/dl Osmolality (280-300) mOsm/kg Calcium (8.5-10.1) mg/dl Phosphorus (2.5-4.9) mg/dl Magnesium (1.8-2.4) mg/dl Total Bilirubin (0.2-1) mg/dl AST (15-37) U/L ALT (12-78) U/L Alkaline Phosphatase (45-117) U/L Total Protein (6.4-8.2) gm/dl Albumin (3.4-5.0) gm/dl Globulin (2.5-4.0) gm/dl Albumin/Globulin Ratio (0.9-2) Lipase (73-393) U/L TSH (0.300-4.500) uIu/ml Urine Color Yellow Urine Appearance Clear (Clear) Urine pH 5.0 (4.5-7.5) Ur Specific Monroe 1.009 (1.000-1.030) Urine Protein 2+ H (Negative) Urine Glucose (UA) Negative (Negative) Urine Ketones Negative (Negative) Urine Blood Negative (Negative) Urine Nitrite Negative (Negative) Urine Bilirubin Negative (Negative) Urine Urobilinogen Negative (Negative) Ur Leukocyte Esterase Negative (Negative) Urine WBC (Auto) 0 (0-5) /hpf Urine RBC (Auto) 0-4 (0-4) /hpf U Hyaline Cast (Auto) 0 (0-5) /lpf U Epithel Cells (Auto) 0-5 (0-5) /lpf Urine Bacteria (Auto) Negative (Negative) Urine Osmolality (500-800) mOsm/kg Ur Random Sodium mmol/L COVID-19 Eval Order Covid19 at [facility] SARS-CoV-2 (PCR) NEGATIVE (Negative) 09/12/20 09/12/20 09/12/20 Range/Units 16:17 15:50 15:50 WBC 9.11 (4.8-10.8) K/uL RBC 3.44 L (4.7-6.1) M/uL Hgb 10.6 L (14.0-18.0) g/dL Hct 30.3 L (42-52) % MCV 88.1 (80-100) fL MCH 30.8 (25-34) pg MCHC 35.0 (32-36) g/dL RDW Std Deviation 41.4 (36.4-46.3) fL RDW Coeff of Juma 12.9 (11.5-14.5) % Plt Count 205 (130-400) K/uL MPV 10.4 (7.4-10.4) fL Immature Gran % (Auto) 0.8 % Neut % (Auto) 70.9 % Lymph % (Auto) 11.4 % Tripp % (Auto) 16.6 % Eos % (Auto) 0.2 % Baso % (Auto) 0.1 % Neut # (Auto) 6.46 (1.4-6.5) K/uL Lymph # (Auto) 1.04 L (1.2-3.4) K/uL Tripp # (Auto) 1.51 H (0.11-0.59) K/uL Eos # (Auto) 0.02 (0-0.5) K/uL Baso # (Auto) 0.01 (0-0.2) K/uL Immature Gran # (Auto) 0.07 H (0.00-0.02) K/uL Sodium 122 L (136-145) mmol/L Potassium 4.1 (3.5-5.1) mmol/L Chloride 88 L (98-107) mmol/L Carbon Dioxide 24 (21-32) mmol/L Anion Gap 10.0 (3-11) BUN 72 H (7-18) mg/dl Creatinine 3.74 H (0.6-1.4) mg/dl Est Cr Clr Drug Dosing 17.8 ml/min Est GFR ( Amer) 17.1 ml/min Est GFR (Non-Af Amer) 14.8 ml/min BUN/Creatinine Ratio 19.2 (10-20) Glucose 152 H (70-99) mg/dl POC Glucose (70-99) mg/dl Osmolality 290 (280-300) mOsm/kg Calcium 8.7 (8.5-10.1) mg/dl Phosphorus 4.4 (2.5-4.9) mg/dl Magnesium 2.3 (1.8-2.4) mg/dl Total Bilirubin 0.5 (0.2-1) mg/dl AST 12 L (15-37) U/L ALT 20 (12-78) U/L Alkaline Phosphatase 115 (45-117) U/L Total Protein 7.9 (6.4-8.2) gm/dl Albumin 3.9 (3.4-5.0) gm/dl Globulin 4.0 (2.5-4.0) gm/dl Albumin/Globulin Ratio 1.0 (0.9-2) Lipase 1140 H (73-393) U/L TSH 0.915 (0.300-4.500) uIu/ml Urine Color Urine Appearance (Clear) Urine pH (4.5-7.5) Ur Specific Monroe (1.000-1.030) Urine Protein (Negative) Urine Glucose (UA) (Negative) Urine Ketones (Negative) Urine Blood (Negative) Urine Nitrite (Negative) Urine Bilirubin (Negative) Urine Urobilinogen (Negative) Ur Leukocyte Esterase (Negative) Urine WBC (Auto) (0-5) /hpf Urine RBC (Auto) (0-4) /hpf U Hyaline Cast (Auto) (0-5) /lpf U Epithel Cells (Auto) (0-5) /lpf Urine Bacteria (Auto) (Negative) Urine Osmolality (500-800) mOsm/kg Ur Random Sodium mmol/L COVID-19 Eval Order SARS-CoV-2 (PCR) (Negative) Medications Administered Current Inpatient Medications Acetaminophen (Acetaminophen 325 Mg Tab) 650 mg PO Q4H PRN PRN Reason: Pain or Fever Stop: 10/12/20 17:45 Amlodipine Besylate (Amlodipine Besylate 5 Mg Tab) 10 mg PO QAM PARIS Stop: 10/13/20 08:59 Last Admin: 09/13/20 07:35 Dose: 10 mg Documented by: Aspirin (Aspirin 81 Mg Ectab) 81 mg PO QAM PARIS Stop: 10/13/20 08:59 Last Admin: 09/13/20 07:35 Dose: 81 mg Documented by: Carvedilol (Carvedilol 25 Mg Tab) 25 mg PO BID PARIS Stop: 10/12/20 20:59 Last Admin: 09/13/20 07:36 Dose: 25 mg Documented by: Cyanocobalamin (Cyanocobalamin 500 Mcg Tablet (Vitamin B-12)) 1,000 mcg PO QDL PARIS Stop: 10/13/20 11:29 Famotidine (Famotidine 20 Mg Tab) 20 mg PO Q48H PARIS Stop: 10/12/20 20:59 Last Admin: 09/12/20 21:08 Dose: 20 mg Documented by: Ferrous Sulfate (Ferrous Sulfate 325 Mg Tab) 325 mg PO DAILY PARIS Stop: 10/13/20 08:59 Last Admin: 09/13/20 07:35 Dose: 325 mg Documented by: Hydralazine HCl (Hydralazine Tab 50 Mg Tab) 100 mg PO TID PARIS Stop: 10/12/20 20:59 Last Admin: 09/13/20 07:36 Dose: 100 mg Documented by: Sodium Chloride (Nss) 500 mls @ 125 mls/hr IV .Q4H PARIS Stop: 09/13/20 10:44 Last Admin: 09/13/20 07:33 Dose: 125 mls/hr Documented by: Polyethylene Glycol (Polyethylene (Miralax) 17 Gm Pack) 17 gm PO DAILY PRN PRN Reason: Constipation Stop: 10/12/20 17:45 Vitamin D (Cholecalciferol 1,000 Units 25 Mcg Tab) 1,000 units PO BID PARIS Stop: 10/12/20 20:59 Last Admin: 09/13/20 07:36 Dose: 1,000 units Documented by: Zolpidem Tartrate (Zolpidem Tartrate 5 Mg Tab) 5 mg PO HS PRN PRN Reason: Sleep Stop: 10/12/20 21:20 Last Admin: 09/12/20 21:35 Dose: 5 mg Documented by:
--- NOTE | 2020-09-13 10:50 | Nephrology Consultation ---
Date of Consultation September 13, 2020 Assessment & Plan (1) Hyponatremia: chronic isotonic hyponatremia, suspect serum osms elevated /inflated by CKD/uremia. no acute symptoms. his volume status is harder to assess that it looks > euvolemic v. hypovolemic, w/ response initially to small amount of saline; worsening as OP after I held lasix. pt denies dehydration sx/hx; denies recent uptick in fluid intake. -bmp at noon after 500 mL NS today -goal sNa is 128 this evening -maintain eukalemia - may be tricky to do in this advanced CKD pt Present on Admission?: Yes (2) CKD (chronic kidney disease) stage 5, GFR less than 15 ml/min: at OP baseline of high 3's to mid 4's; w/ acceptable volume status and mostly acceptable chemistries, no indication for urgent dialysis. he has a hx of hyperkalemia, metabolic acidosis, both OK for now. -daily bmp -avoid nephrotoxins such as nsaids, (unless life/limb saving) IV contrast -no kwesi/arb d/t hyperkalemia/metabolic acidosis ->agree w/ renal diet as he has trend to hyperkalemia and metabolic acidosis -added 1.5L FR so we have control of I/O -he took just a small sodium bicarb dose and labs normalized/ were near normal on presentation after recent OP labs with bic 17 > 24 w/ taking bicarb; likely to need to resume this Present on Admission?: Yes (3) Elevated lipase: asymptomatic so far; per primary service Present on Admission?: Yes (4) Anemia: acceptable for now; monitor daily; multifactorial from CKD, chronic disease Present on Admission?: Yes History of Present Illness Reason for Consultation: hyponatremia Requesting Physician: Dr Martell Attending Physician: Julián Martell MD History of Present Illness 75 y/o M whom I'm asked to see for hyponatremia after I sent him to ER yesterday for admission to manage same. His presenting sodium was 122 (up to 124 today), creatinine 3.7 > 3.5 today. PMH includesCKD 5not on dialysis from hypertension/DM/age with 700 mg of proteinuria, diabetes since his 40s with no retinopathy and currently diet controlled, longstanding htn since his 40-50's; hx of statin myopathy. His baseline creatinine is high 3's to mid 4's since September 2019. He plans to do peritoneal dialysis when need arises; has met Dr Sheriff in prelim. Has had a few admissions for GI issues, none recent: Admitted [facility] 11/27-11/30/18for hgb 6.8 w/ diarrheal illness, coffee ground emesis, melena.Also had ANI w/ peak creatinine 3.4 on presentation and 3.0 by 11/30 d/c. No obvious bleeding source found; advised d/t this to cont asa.Had tx w/H pylori abtx.Spring 2018 admitted 2X to [facility]: 17 June 2027 to July 16, 2018, second time July 24 to July 30, both times for bilateral leg weakness. Transferred to [facility] first admission with concern for statin induced myopathy. Patient inadvertently continued statin after discharge. Concern also that anemia contributed to leg weakness. Noted to have gastritis with hemorrhage in duodenal erosion on EGD. F/u EGD negative. Creatinine bumped to low 3's during admission; back to mind - high 2's by late August. He had 250 cc NS in ER yesterday w/ some improvement in serum sodium to 124. He had transient n/v over the weekend; no diarrhea or abd pain, no falls, no balance concerns or light headedness; denies working or extended time outside in summer heat, no edema, no sob or cough; no new/worrisome voiding issues, no decr eased po or worsening thirst. Allergies Allergy/AdvReac Type Severity Reaction Status Date / Time sitagliptin Allergy Intermediate LIGHTHEADEDNESS Verified 09/12/20 18:32 AND PAINS IN UPPER STOMACH Home Medications Medication Instructions Recorded Confirmed Type amlodipine [Norvasc] 10 mg PO QAM 11/27/17 09/12/20 History ferrous sulfate 325 mg PO DAILY 11/27/17 09/12/20 History hydralazine 100 mg PO TID 11/27/17 09/12/20 History aspirin [Aspir-81] 81 mg PO QAM 07/24/18 09/12/20 History cholecalciferol (vitamin D3) 1,000 unit PO BID 10/27/18 09/12/20 History [Vitamin D3] cyanocobalamin (vitamin B-12) 1,000 mcg PO QDL 10/27/18 09/12/20 History [Vitamin B-12] carvedilol [Coreg] 25 mg PO BID 06/01/20 09/12/20 History famotidine 20 mg PO Q OTHER DAY 06/01/20 09/12/20 History furosemide 40 mg PO DAILY 09/12/20 09/12/20 History sodium bicarbonate 1,300 mg PO BID 09/12/20 09/12/20 History Patient History Medical History Anemia Anxiety Chronic kidney disease (CKD), stage V peritoneal dialysis is planned; not on dialysis -- follows with Dr. Brooklyn Carpenter with [facility] Colonic polyp Depression Diabetes mellitus, type II diet controlled--per pt taken off meds d/t severe kidney disease Gastric ulcer History of GI bleed History of Helicobacter pylori infection HTN (hypertension) Hyperlipidemia Hypokalemia Surgical History History of cataract surgery bilt History of esophagogastroduodenoscopy (EGD) (~11/03/18) S/P colonoscopy (~07/28/18) with polypectomy Family History Mother Diabetes Breast cancer Family history of diabetes mellitus Father Family history of diabetes mellitus Other No family history of adverse response to anesthesia Social History Smoking Status: Former smoker Tobacco Type: Cigarettes Cigarettes Per Day: 2004; Second Hand Exposure: No; Do You Dip or Chew Tobacco: No; Hx Alcohol Use: No Hx Substance Use: No Preferred Language: Salvadorean Communication Ability: Effective Visual Impairment: No 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 How many Children do You have: 2 Other Information That Helps Us Care for You: No Feels Safe at Home: Yes Safety Concerns: Feels Safe At This Time Assistive Devices: Denture - Upper, Glasses and Hearing Aid - Left Review of Systems Review of Systems: All systems reviewed & are unremarkable except as noted in HPI & below Physical Exam Constitutional: well developed, well nourished, average body habitus and cooperative; no acute distress Eyes: EOM intact bilaterally ENMT: Ears: no external ear abnormality Nose: no external nose abnormality Mouth: + dry oral mucous membranes Neck: no nuchal rigidity Respiratory: normal respiratory effort Auscultation: lungs clear to au scultation bilaterally and + diminished lung sounds Cardiovascular: Rate/Rhythm: regular rate and regular rhythm Extremities: no edema Gastrointestinal (Abdomen): Inspection/Auscultation: normal bowel sounds Percussion/Palpation: abdomen soft; abdomen nontender and no guarding Musculoskeletal: Extremities: strength 5/5 throughout Skin: no rashes, warm and dry Neurologic: quintero, fluent speech, no tremor Psychiatric: A+Ox3, euthymic affect Speech: normal rate/rhythm/volume of speech Genitourinary: no alonzo Results & Data ([facility]) Vital Signs (Past 12 Hours) Vital Signs Temp Pulse Pulse Pulse Resp BP Pulse Ox 09/13/20 09:08 66 09/13/20 07:01 36.7 C 67 19 164/69 H 97 09/13/20 03:09 36.5 C 59 L 18 152/63 H 98 09/13/20 02:23 72 09/12/20 22:51 36.6 C 69 18 159/62 H 96 Laboratory Results 09/13/20 03:58 09/13/20 03:58 uOsm 285, Liz 39, sOsm 290 lipase 1140 TSH wnl clear yellow urine 2+ protein 1009, pH 5.[address] abd/pelvis non con FINDINGS: Trace bilateral pleural effusions. No pneumoperitoneum. No pneumatosis. A few punctate calcifications within the liver and spleen. Bi lateral adrenal gland thickening, unchanged. This is likely chronic. The unenhanced pancreas and gallbladder are unremarkable. There are few punctate bilateral renal calculi. Chronic mild bilateral perinephric edema is again noted. No ureteral stones. No hydronephrosis. The bladder is unremarkable. A penile implant is noted. No retroperitoneal lymphadenopathy. Moderate calcified plaque within the normal caliber abdominal aorta. No pelvic free fluid. Small fat-containing right inguinal hernia. No pelvic lymphadenopathy. There is suboptimal evaluation for bowel pathology due to the lack of intravenous and oral contrast. However, there is no definite bowel wall thickening or obstruction. Colonic diverticulosis. No evidence for acute diverticulitis. Normal appendix. There is a 3 cm diverticulum at the second portion of the duodenum. Questionable thickening at the sigmoid colon is likely due to muscular hypertrophy from the diverticulosis. IMPRESSION: 1. No definite bowel wall thickening or obstruction. 2. Colonic diverticulosis. No evidence for acute diverticulitis. 3. Normal appendix. 4. Bilateral nephrolithiasis. No ureteral stones. No hydronephrosis. 5. Additional stable findings as described above.
[2020-09-13] MEDS: CYANOCOBALAMIN 500 MCG TABLET (VITAMIN B-12) PO SCH (12:14)
[2020-09-13] MEDS: ZOLPIDEM TARTRATE 5 MG TAB PO PRN (20:33)
[2020-09-14 06:28] LABS: Hematocrit (blood only) 30.1 % (42-52); Hemoglobin 10.4 g/dL (14.0-18.0); Mean Corpuscular Hemoglobin 30.9 pg (25-34); Mean Corpuscular Hgb Conc 34.6 g/dL (32-36); Mean Corpuscular Volume 89.3 fL (80-100); Mean Platelet Volume 10.2 fL (7.4-10.4); Platelet Count 192 K/uL (130-400); RDW Coefficient of Variation 13.1 % (11.5-14.5); RDW Standard Deviation 42.9 fL (36.4-46.3); Red Blood Count 3.37 M/uL (4.7-6.1); White Blood Count 11.81 K/uL (4.8-10.8)
[2020-09-14 07:12] LABS: BUN Creatinine Ratio 18.8 (10-20); Calcium 8.6 mg/dl (8.5-10.1); Creatinine Clr Calc Pharmacy 16.6 ml/min; Est GFR (African American) 16.2 ml/min; Magnesium 2.3 mg/dl (1.8-2.4); Phosphorus 4.1 mg/dl (2.5-4.9); Potassium 4.3 mmol/L (3.5-5.1)
[2020-09-14] MEDS: FERROUS SULFATE 325 MG TAB PO SCH (08:38)
[2020-09-14] MEDS: CHOLECALCIFEROL 1,000 UNITS 25 MCG TAB PO SCH ×2 (08:38→20:50)
[2020-09-14] MEDS: amLODIPine BESYLATE 5 MG TAB PO SCH (08:39)
[2020-09-14] MEDS: ASPIRIN 81 MG ECTAB PO SCH (08:39)
[2020-09-14] MEDS: hydrALAZINE TAB 50 MG TAB PO SCH ×3 (08:39→21:58)
[2020-09-14] MEDS: carvediloL 25 MG TAB PO SCH ×2 (08:39→20:49)
--- NOTE | 2020-09-14 11:35 | Hospitalist Progress Note ---
Date of Service September 14, 2020 Assessment & Plan (1) CKD (chronic kidney disease) stage 5, GFR less than 15 ml/min: (2) Hyponatremia: Pt presents on admission with Na level 122 urine sodium 39 , urine osm 285 Sodium improved to 129 today Nephrology on board recommend fluid restriction to 1.5 L daily Continue monitor BMP Clinically improved CKD stage V Creatinine on admission 3.7, then worsening to 4.3 this afternoon Nephrology on board Plan to start on peritoneal dialysis soon Currently on transplant list Case discussed with nephrology will arrange follow-up with Dr. Sheriff for PD catheter placement d Continue monitor BMP Nausea/vomiting Possible related to low sodium CT abdomen/pelvis was unremarkable Denies any abdominal pain Resolved HTN - cont. home medications DM type 2 - currently on no medications - diet controlled Anemia Chronic anemia in worsening of CKD Baseline Hgb ~10, now unchanged -Stable DVT ppx: SCDs Admission and Anticipated Discharge Date Admission Date: September 12, 2020 Subjective Patient was seen and examined for follow-up of hyponatremia Lying in bed with no distress watching TV Patient said that he feels much better Denies any fevers, chills, chest pain, shortness of breath, abdominal pain, nausea, vomiting, dizziness, lightheadedness Review of Systems Review of Systems: All systems reviewed & are unremarkable except as noted in Subjective Physical Exam Physical Exam: General- No acute distress Head- atraumatic Eyes- PERRL, EOMI, ENT- oropharynx clear Neck- supple, no JVD Lungs- clear to auscultation Heart- regular rhythm; no murmur Abdomen- normal bowel sounds, soft, nontender Extremities- no calf tenderness Neuro- alert, oriented x 3; PERRL, EOMI; no facial palsy; no dysarthria Skin- warm & dry Results & Data Results & Data ([facility]) Vital Signs (Past 12 Hours) Vital Signs Temp Pulse Pulse Resp BP Pulse Ox 09/14/20 11:12 36.4 C L 60 19 152/56 H 99 09/14/20 08:00 64 09/14/20 07:54 36.5 C 64 18 164/71 H 96 09/14/20 03:05 36.6 C 69 18 160/65 H 95 09/14/20 00:16 59 L
[2020-09-14] MEDS: CYANOCOBALAMIN 500 MCG TABLET (VITAMIN B-12) PO SCH (12:37)
--- NOTE | 2020-09-14 17:46 | Nephrology Progress Note ---
Date of Service September 14, 2020 Assessment & Plan (1) Hyponatremia: chronic isotonic hyponatremia, suspect serum osms elevated /inflated by CKD/uremia. no acute symptoms. his volume status is harder to assess that it looks > euvolemic v. hypovolemic, w/ response initially to small amount of sa line; worsening as OP after I held lasix. pt denies dehydration sx/hx; denies recent uptick in fluid intake. -bmp recheck for 1800 ordered -goal sNa is 134 tomorrow am -maintain eukalemia - may be tricky to do in this advanced CKD pt but ok for now (2) CKD (chronic kidney disease) stage 5, GFR less than 15 ml/min: at OP baseline of high 3's to mid 4's; w/ acceptable volume status and mostly acceptable chemistries, no indication for urgent dialysis. he has a hx of hyperkalemia, metabolic acidosis, both OK for now. -daily bmp -avoid nephrotoxins such as nsaids, (unless life/limb saving) IV contrast -no kwesi/arb d/t hyperkalemia/metabolic acidosis ->agree w/ renal diet as he has trend to hyperkalemia and metabolic acidosis -added 1.5L FR so we have control of I/O -he took just a small sodium bicarb dose and labs normalized/ were near normal on presentation after recent OP labs with bic 17 > 24 w/ taking bicarb; likely to need to resume this at some point >>will need at d/c to get appt w/ dr aguilera to move along w/ PD cath placement (3) Elevated lipase: asymptomatic so far; per primary service (4) Anemia: acceptable for now; monitor daily; multifactorial from CKD, chronic disease Admission and Anticipated Discharge Date Admission Date: September 12, 2020 Subjective continues to feel well> no sob, no edema, no furthe rn/v, no reported balance is sues Review of Systems Review of Systems: All systems reviewed & are unremarkable except as noted in Subjective Physical Exam Constitutional: well developed, well nourished, average body habitus and cooperative; no acute distress Eyes: EOM intact bilaterally ENMT: Ears: no external ear abnormality Nose: no external nose abnormality Mouth: + dry oral mucous membranes Neck: no nuchal rigidity Respiratory: normal respiratory effort Auscultation: lungs clear to auscultation bilaterally and + diminished lung sounds Cardiovascular: Rate/Rhythm: regular rate and regular rhythm Extremities: no edema Gastrointestinal (Abdomen): Inspection/Auscultation: normal bowel sounds Percussion/Palpation: abdomen soft; abdomen nontender and no guarding Musculoskeletal: Extremities: strength 5/5 throughout Skin: no rashes, warm and dry Neurologic: quintero, fluent speech, no tremor Psychiatric: A+Ox3, euthymic affect Speech: normal rate/rhythm/volume of speech Results & Data ([facility]) Vital Signs (Past 12 Hours) Vital Signs Temp Pulse Pulse Resp BP Pulse Ox 09/14/20 15:13 36.4 C L 62 18 158/62 H 98 09/14/20 15:00 60 09/14/20 11:12 36.4 C L 60 19 152/56 H 99 09/14/20 08:00 64 09/14/20 07:54 36.5 C 64 18 164/71 H 96 Laboratory Results 09/14/20 06:11 09/14/20 06:11
[2020-09-14 19:09] LABS: BUN Creatinine Ratio 17.7 (10-20); Calcium 8.5 mg/dl (8.5-10.1); Creatinine Clr Calc Pharmacy 15.1 ml/min; Est GFR (African American) 14.5 ml/min; Est GFR (Non-African American) 12.5 ml/min
[2020-09-14] MEDS: FAMOTIDINE 20 MG TAB PO SCH (20:49)
[2020-09-14] MEDS: ZOLPIDEM TARTRATE 5 MG TAB PO PRN (20:52)
[2020-09-15 06:49] LABS: BUN Creatinine Ratio 20.3 (10-20); Calcium 8.4 mg/dl (8.5-10.1); Creatinine Clr Calc Pharmacy 17.2 ml/min; Est GFR (Non-African American) 14.6 ml/min; Potassium 3.8 mmol/L (3.5-5.1)
[2020-09-15] MEDS: amLODIPine BESYLATE 5 MG TAB PO SCH (08:42)
[2020-09-15] MEDS: hydrALAZINE TAB 50 MG TAB PO SCH ×2 (08:42→15:00)
[2020-09-15] MEDS: ASPIRIN 81 MG ECTAB PO SCH (08:42)
[2020-09-15] MEDS: FERROUS SULFATE 325 MG TAB PO SCH (08:42)
[2020-09-15] MEDS: carvediloL 25 MG TAB PO SCH (08:43)
[2020-09-15] MEDS: CHOLECALCIFEROL 1,000 UNITS 25 MCG TAB PO SCH (08:43)
--- NOTE | 2020-09-15 11:55 | Nephrology Progress Note ---
Date of Service September 15, 2020 Assessment & Plan (1) Hyponatremia: chronic isotonic hyponatremia, suspect serum osms elevated /inflated by CKD/uremia. no acute symptoms. his volume status is harder to assess that it looks > euvolemic v. hypovolemic, w/ response initially to small amount of cammy ine; worsening as OP after I held lasix. pt denies dehydration sx/hx; denies recent uptick in fluid intake. -sNa correcting appropriately but a bit slow >> recheck later today ordered; if lower /stable, may need some lasix -maintain eukalemia - may be tricky to do in this advanced CKD pt but ok for now (2) CKD (chronic kidney disease) stage 5, GFR less than 15 ml/min: at OP baseline of high 3's to mid 4's; w/ acceptable volume status and mostly acceptable chemistries, no indication for urgent dialysis but he is very close to needing it and will likely need to start next 4-6 wks. he has a hx of hyperkalemia, metabolic acidosis, both OK for now. -daily bmp -avoid nephrotoxins such as nsaids, (unless life/limb saving) IV contrast -no kwesi/arb d/t hyperkalemia/metabolic acidosis ->cont renal diet as he has trend to hyperkalemia and metabolic acidosis -added 1.5L FR so we have control of I/O -he took just a small sodium bicarb dose and labs normalized/ were near normal on presentation after recent OP labs with bic 17 > 24 w/ taking bicarb; likely to need to resume this at some point but not currently needed >>did discuss w/ Dr Sheriff who will be placing PD catheter >> will have Dr Sheriff evaluate pt today or tomorrow in house so we can hopefully have OR date before d/c for safe d/c; PD nurse aware as well Care coordinated w/ Maricarmen Krause (3) Elevated lipase: asymptomatic so far; per primary service (4) Anemia: acceptable for now; monitor daily; multifactorial from CKD, chronic disease Admission and Anticipated Discharge Date Admission Date: September 12, 2020 Subjective seen on rounds at 0750; feeling well; eating well; no edema or voiding concerns; no sob, no abd or musculoskeletal pain Review of Systems Review of Systems: All systems reviewed & are unremarkable except as noted in Subjective Physical Exam Constitutional: well developed, well nourished, average body habitus and cooperative; no acute distress Eyes: EOM intact bilaterally ENMT: Ears: no external ear abnormality Nose: no external nose abnormality Mouth: + dry oral mucous membranes Neck: no nuchal rigidity Respiratory: normal respiratory effort Auscultation: lungs clear to auscultation bilaterally and + diminished lung sounds Cardiovascular: Rate/Rhythm: regular rate and regular rhythm Extremities: no edema Gastrointestinal (Abdomen): Inspection/Auscultation: normal bowel sounds Percussion/Palpation: abdomen soft; abdomen nontender and no guarding Musculoskeletal: Extremities: strength 5/5 throughout Skin: no rashes, warm and dry Neurologic: quintero, no tremor Psychiatric: A+Ox3, euthymic affect Speech: normal rate/rhythm/volume of speech Results & Data ([facility]) Vital Signs (Past 12 Hours) Vital Signs Temp Pulse Pulse Resp BP Pulse Ox 09/15/20 11:45 37.0 C 62 20 135/58 L 93 09/15/20 10:32 62 09/15/20 07:33 37.1 C 66 18 152/65 H 96 09/15/20 03:24 37.0 C 82 18 130/70 98 09/15/20 01:33 63 Laboratory Results 09/14/20 06:11 09/15/20 05:48
[2020-09-15] MEDS: CYANOCOBALAMIN 500 MCG TABLET (VITAMIN B-12) PO SCH (12:08)
--- NOTE | 2020-09-15 15:10 | Consultation ---
Date of Consultation September 15, 2020 Assessment & Plan (1) Chronic renal failure, stage 4 (severe): Pt with worsening renal fxn and heading for dialysis in near future. [facility] has had some training for home peritoneal dialysis at the outpt HD unit in preparation for this. Will schedule pt for outpt CAPD catheter insertion in 1-2 weeks. Pt agreeable. Please call if needed. History of Present Illness Reason for Consultation: ESRD, need PD catheter Attending Physician: Rochelle Hernadez MD History of Present Illness 75 yo m with hx of CKD, DMII, HTN, hyperlipidemia, GI bleed, admitted with ANI superimposed on CKD, seen in consultation today for CAPD catheter insertion in order to start home PD in near future. Pt states feeling ok. Denies THAKKAR, fever, chest pain, SOB, abd pain, N/V, rest pain, claudication, other complaints. No hx of prior abd surgeries. Allergies Allergy/AdvReac Type Severity Reaction Status Date / Time sitagliptin Allergy Intermediate LIGHTHEADEDNESS Verified 09/12/20 18:32 AND PAINS IN UPPER STOMACH Home Medications Medication Instructions Recorded Confirmed Type amlodipine [Norvasc] 10 mg PO QAM 11/27/17 09/12/20 History ferrous sulfate 325 mg PO DAILY 11/27/17 09/12/20 History hydralazine 100 mg PO TID 11/27/17 09/12/20 History aspirin [Aspir-81] 81 mg PO QAM 07/24/18 09/12/20 History cholecalciferol (vitamin D3) 1,000 unit PO BID 10/27/18 09/12/20 History [Vitamin D3] cyanocobalamin (vitamin B-12) 1,000 mcg PO QDL 10/27/18 09/12/20 History [Vitamin B-12] carvedilol [Coreg] 25 mg PO BID 06/01/20 09/12/20 History famotidine 20 mg PO Q OTHER DAY 06/01/20 09/12/20 History furosemide 40 mg PO DAILY 09/12/20 09/12/20 History sodium bicarbonate 1,300 mg PO BID 09/12/20 09/12/20 History Patient History Medical History Anemia Anxiety Chronic kidney disease (CKD), stage V peritoneal dialysis is planned; not on dialysis -- follows with Dr. Brooklyn Carpenter with [facility] Nephrology Colonic polyp Depression Diabetes mellitus, type II diet controlled--per pt taken off meds d/t severe kidney disease Gastric ulcer History of GI bleed History of Helicobacter pylori infection HTN (hypertension) Hyperlipidemia Hypokalemia Surgical History History of cataract surgery bilt History of esophagogastroduodenoscopy (EGD) (~11/03/18) S/P colonoscopy (~07/28/18) with polypectomy Family History Mother Diabetes Breast cancer Family history of diabetes mellitus Father Family history of diabetes mellitus Other No family history of adverse response to anesthesia Social History Smoking Status: Former smoker Tobacco Type: Cigarettes Cigarettes Per Day: 2004; Second Hand Exposure: No; Do You Dip or Chew Tobacco: No; Hx Alcohol Use: No Hx Substance Use: No Preferred Language: Irish Communication Ability: Effective Visual Impairment: No Limitations Application Security Engineer Required: No Beliefs That Will Affect Care: None marital status: / Current Living Situation: Alone Current Living Situation Comment: Son Galen Corral lives next door. How many Children do You have: 2 Other Information That Helps Us Care for You: No Feels Safe at Home: Yes Safety Concerns: Feels Safe At This Time Assistive Devices: None Review of Systems Review of Systems: All systems reviewed & are unremarkable except as noted in HPI & below Physical Exam Constitutional: WD/WN, vitals as above healthy appearing, cooperative and comfortable; not in distress ENMT: Ears: no hearing impairment Neck: trachea midline Respiratory: normal respiratory effort, lungs clear to auscultation Auscultation: + diminished lung sounds Cardiovascular: Rate/Rhythm: regular rate and regular rhythm Vessels: femoral pulses present, posterior tibial pulses present, dorsalis pedis pulses present and radial pulses present; + abnormal peripheral pulses Extremities: normal capillary refill; no edema Gastrointestinal (Abdomen): normal bowel sounds, soft, nontender, no hepatosplenomegaly Inspection/Auscultation: no visible herniation and no abdominal surgical scar Musculoskeletal: no cyanosis or clubbing, extremities motor strength 5/5 Skin: no rashes, warm and dry Neurologic: moves all extremities and awake; no focal motor deficits and not confused Psychiatric: A+Ox3, euthymic affect Results & Data ([facility]) Vital Signs (Past 12 Hours) Vital Signs Temp Pulse Pulse Resp BP Pulse Ox 09/15/20 11:45 37.0 C 62 20 135/58 L 93 09/15/20 10:32 62 09/15/20 07:33 37.1 C 66 18 152/65 H 96 09/15/20 03:24 37.0 C 82 18 130/70 98
--- NOTE | 2020-09-15 15:40 | Hospitalist Progress Note ---
Date of Service September 15, 2020 Assessment & Plan (1) CKD (chronic kidney disease) stage 5, GFR less than 15 ml/min: (2) Hyponatremia: Pt presents on admission with Na level 122 urine sodium 39 , urine osm 285 Sodium improved to 131 today Nephrology on board and recommended fluid restriction to 1.5 L daily Will continue Lasix 40mg 3xweekly Check BMP on September 20 outpatient Follow up with nephrology CKD stage V Creatinine on admission 3.7, then worsening to 4.3 this afternoon Nephrology on board Plan to start on peritoneal dialysis soon Currently on transplant list Case discussed with nephrology will arrange follow-up with Dr. Sheriff for PD catheter placement vascular surgery saw pt today and will schedule outpatient for CAPD catheter insertion in 1-2 weeks. Nephrology recommended to continue Lasix on Sat/Sat/Saturday Nephrology was notify and agreed with the plan Continue monitor BMP outpatient Nausea/vomiting Possible related to low sodium CT abdomen/pelvis was unremarkable Denies any abdominal pain Resolved HTN Continue home medications DM type 2 - currently on no medications - diet controlled Anemia Chronic anemia in worsening of CKD Baseline Hgb ~10, now unchanged -Stable DVT ppx: SCDs Disposition Discharge home today Follow up with vascular surgery Admission and Anticipated Discharge Date Admission Date: September 12, 2020 Subjective Pt was see and examined for follow up of low sodium Lying in bed with no distress Pt said that she feels fine He is very anxious to go home today Denies ay chest pain, palpitation, dizziness and SOB Review of Systems Review of Systems: All systems reviewed & are unremarkable except as noted in Subjective Physical Exam Physical Exam: General- No acute distress Head- atraumatic Eyes- PERRL, EOMI, ENT- oropharynx clear Neck- supple, no JVD Lungs- clear to auscultation Heart- regular rhythm; no murmur Abdomen- normal bowel sounds, soft, nontender Extremities- no calf tenderness Neuro- alert, oriented x 3; PERRL, EOMI; no facial palsy; no dysarthria Skin- warm & dry Results & Data Results & Data ([facility]) Vital Signs (Past 12 Hours) Vital Signs Temp Pulse Pulse Resp BP Pulse Ox 09/15/20 11:45 37.0 C 62 20 135/58 L 93 09/15/20 10:32 62 09/15/20 07:33 37.1 C 66 18 152/65 H 96
--- NOTE | 2020-09-20 00:55 | Discharge Summary ---
Date of Service September 15, 2020 Admission HPI Per Admitting Provider Mr. Jack is a 75-year-old male with a history of hypertension, diabetes mellitus, diet-controlled, CKD stage V, who now presents with hyponatremia, possible ANI. Patient reports feeling nauseous and vomiting yesterday and day before yesterday. However no abdominal pain, diarrhea, fevers or chills. Says he often has nausea when he drinks a lot of water all at once. Reports that is what he was doing at home - that he drank a lot of water at once, and then became nauseated and vomited. He got his blood work done today, and was found to have low sodium of 124. 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 Carpenter sent him to the ED for further evaluation and close monitoring. Currently patient is sitting up in bed, and denies any concerning symptoms. Still denies any fevers, chills, chest pain, abdominal pain, nausea or vomiting, diarrhea. No headache or dizziness. Says that he overall feels well. In ED sodium was found to be 122, and also lipase elevated at 1100. CT scan of the abdomen pelvis obtained. Patient received 250 cc of normal saline. Admission Exam Per Admitting Provider Constitutional: WD/WN, vitals as above Eyes: PERRL, conjunctivae normal, anicteric sclerae ENMT: external ear and nose normal, oropharynx normal Neck: normal visual inspection Respiratory: normal respiratory effort, lungs clear to auscultation Cardiovascular: RRR, no murmur, no edema Chest (Breasts): normal inspection of chest Gastrointestinal: abdomen normal to inspection and normal bowel sounds; abdomen not distended, soft, nontender, no guarding and abdomen not rigid Musculoskeletal: no cyanosis or clubbing, extremities motor strength 5/5 Head/Neck/Chest: normocephalic and head atraumatic Skin: no rashes, warm and dry Neurologic: PERRL, EOMI, accommodation nl, no face palsy, no dysarthria Psychiatric: A+Ox3, euthymic affect Genitourinary: no CVA tenderness Lymphatic: no lymphadenopathy Principal Diagnosis CKD (chronic kidney disease) stage 5, GFR less than 15 ml/min: Hyponatremia Nausea/vomiting Hypertension Diabetes Anemia Discharge Exam General- No acute distress Head- atraumatic Eyes- PERRL, EOMI, ENT- oropharynx clear Neck- supple, no JVD Lungs- clear to auscultation Heart- regular rhythm; no murmur Abdomen- normal bowel sounds, soft, nontender Extremities- no calf tenderness Neuro- alert, oriented x 3; PERRL, EOMI; no facial palsy; no dysarthria Skin- warm & dry Discharge Data Allergies Allergy/AdvReac Type Severity Reaction Status Date / Time sitagliptin Allergy Intermediate LIGHTHEADEDNESS Verified 09/19/20 09:25 AND PAINS IN UPPER STOMACH Consultations 09/12/20 17:29 ED Decision to Admit Stat 09/12/20 17:46 Consult Nephrology Routine 09/15/20 12:40 Consult Vascular Surgery Routine Ordered Studies 09/12/20 16:36 CT abd pelvis wo con Stat ABDOMEN AND PELVIS CT WITHOUT CONTRAST CT DOSE: 324.20 mGy.cm HISTORY: elevated lipase, chronic kidney disease, recent n/v TECHNIQUE: Multiaxial CT images of the abdomen and pelvis were performed without contrast. A dose lowering technique was utilized adhering to the principles of ALARA. COMPARISON STUDY: Abdomen and pelvis CT 07/24/2018. FINDINGS: Trace bilateral pleural effusions. No pneumoperitoneum. No pneumatosis. A few punctate calcifications within the liver and spleen. Bilateral adrenal gland thickening, unchanged. This is likely chronic. The unenhanced pancreas and gallbladder are unremarkable. There are few punctate bilateral renal calculi. Chronic mild bilateral perinephric edema is again noted. No ureteral stones. No hydronephrosis. The bladder is unremarkable. A penile implant is noted. No retroperitoneal lymphadenopathy. Moderate calcified plaque within the normal caliber abdominal aorta. No pelvic free fluid. Small fat-containing right inguinal hernia. No pelvic lymphadenopathy. There is subo ptimal evaluation for bowel pathology due to the lack of intravenous and oral contrast. However, there is no definite bowel wall thickening or obstruction. Colonic diverticulosis. No evidence for acute diverticulitis. Normal appendix. There is a 3 cm diverticulum at the second portion of the duodenum. Questionable thickening at the sigmoid colon is likely due to muscular hypertrophy from the diverticulosis. IMPRESSION: 1. No definite bowel wall thickening or obstruction. 2. Colonic diverticulosis. No evidence for acute diverticulitis. 3. Normal appendix. 4. Bilateral nephrolithiasis. No ureteral stones. No hydronephrosis. 5. Additional stable findings as described above. ACT 112: Negative or not required by law. Electronically signed by: Pablo Brown M.D. 09/12/2020 5:35 PM Dictated: 09/12/201729Transcribed: 09/12/201729 Hospital Course (1) CKD (chronic kidney disease) stage 5, GFR less than 15 ml/min: (2) Hyponatremia: Pt presents on admission with Na level 122 urine sodium 39 , urine osm 285 Sodium improved to 131 today Nephrology on board and recommended fluid restriction to 1.5 L daily Will continue Lasix 40mg 3xweekly Check BMP on September 20 outpatient Follow up with nephrology CKD stage V Creatinine on admission 3.7, then worsening to 4.3 this afternoon Nephrology on board Plan to start on peritoneal dialysis soon Currently on transplant list Case discussed with nephrology will arrange follow-up with Dr. Sheriff for PD catheter placement vascular surgery saw pt today and will schedule outpatient for CAPD catheter insertion in 1-2 weeks. Nephrology recommended to continue Lasix on Sat/Sat/Saturday Nephrology was notify and agreed with the plan Continue monitor BMP outpatient Nausea/vomiting Possible related to low sodium CT abdomen/pelvis was unremarkable Denies any abdominal pain Resolved HTN Continue home medications DM type 2 - currently on no medications - diet controlled Anemia Chronic anemia in worsening of CKD Baseline Hgb ~10, now unchanged -Stable DVT ppx: SCDs Disposition Discharge home today Follow up with vascular surgery Total Time Total Time Spent Total Time Spent (In Minutes): 35 minutes Discharge Plan Discharge Items Patient Disposition: Home - Self-Care Reason For Visit: HYPONATREMIA Discharge Diagnosis: CKD (chronic kidney disease) stage 5, GFR less than 15 ml/min: Hyponatremia Nausea/vomiting Hypertension Diabetes Anemia Activity: Resume your previous activity Non-emergency contact: Primary Care Provider, Surgeon and Drywall Contractor Call non-emergency contact if: you have any medication questions Follow-up/Referrals: Fiona Novoa DO [Primary Care Provider] - Diet: Carb Consistent or DM2 and Dialysis Renal Addtl Attending Provider Instructions: Follow up up with your primary care provider Dr. Novoa within 1 week ( office will call for the appointment) Follow up with your nephrology Follow up with vascular surgery Dr. Sheriff for the dialysis catheter placement Check BMP on 09/20/20 to monitor your electrolytes Continue 1.5 Liter fluid restriction daily Continue to avoid agents that can damage your kidney Continue Lasix 40mg on Saturday/Saturday and Saturday only Pending Studies at Discharge: No Stand-Alone Forms: My [facility], Smoking Cessation Medications and DC Order Prescriptions: Continued cyanocobalamin (vitamin B-12) [Vitamin B-12] 1,000 mcg Tablet 1,000 mcg PO QDL RF: 0 cholecalciferol (vitamin D3) [Vitamin D3] 1,000 unit Capsule 1,000 unit PO BID RF: 0 amlodipine [Norvasc] 10 mg Tablet 10 mg PO QAM RF: 0 hydralazine 100 mg Tablet 100 mg PO TID RF: 0 ferrous sulfate 325 mg (65 mg iron) Tablet 325 mg PO DAILY RF: 0 aspirin [Aspir-81] 81 mg Tablet,Delayed Release (Dr/Ec) 81 mg PO QAM RF: 0 carvedilol [Coreg] 25 mg Tablet 25 mg PO BID RF: 0 famotidine 20 mg Tablet 20 mg PO Q OTHER DAY RF: 0 sodium bicarbonate 650 mg Tablet 1,300 mg PO BID RF: 0 Changed furosemide 40 mg tablet 40 mg PO 3XWK Qty: 0 RF: 0 Discharge Orders: Discharge Order (Routine); Ordered 09/15/20 Ordered By: Rochelle Sahu/Other Patient Handouts: Kidney Problems, Kidney Failure: Your Healthcare Team, Peritoneal Dialysis (PD) Admission Data Admit Date/Time: 09/12/20 17:46 Attending Provider: Rochelle Hernadez Admit Provider: Julián Martell Primary Care Provider: Fiona Novoa Other Providers: Julián Martell ; Brooklyn Carpenter ; Ky Sheriff Other Interventions: Discharge Summary Assessment (RN) Last Done: 09/15/20 16:02
== END 2020-09-15 16:38 | disposition home or self-care (01) | DRG 641 ==
LOC: ED 15:20 → 2S 17:46 → SUATTDRO 17:46 → 2S 19:28

== ENCOUNTER 2021-01-04 12:53 | Inpatient (IN) ==
[2021-01-04 14:30] LABS: Mean Corpuscular Hgb Conc 34.5 g/dL (32-36); Nucleated RBC # (auto) 0.05 K/uL (0-0); Nucleated RBC % (auto) 0.8 %
[2021-01-04 14:39] LABS: Alanine Aminotransferase 39 U/L (12-78); Albumin Level 1.9 gm/dl (3.4-5.0); Aspartate Aminotransferase 58 U/L (15-37); BUN Creatinine Ratio 13.2 (10-20); Blood Urea Nitrogen 58 mg/dl (7-18); Calcium 8.2 mg/dl (8.5-10.1); Carbon Dioxide 27 mmol/L (21-32); Chloride 93 mmol/L (98-107); Est GFR (African American) 14.1 ml/min; Est GFR (Non-African American) 12.2 ml/min; Glucose 266 mg/dl (70-99); Magnesium 2.3 mg/dl (1.8-2.4); Potassium 3.4 mmol/L (3.5-5.1); Sodium 130 mmol/L (136-145)
[2021-01-04 14:41] LABS: INR 1.1 (0.9-1.1); Partial Thromboplastin Ratio 1.1; Partial Thromboplastin Time 28.1 Seconds (21.0-31.0); Prothrombin Time 10.9 Seconds (9.0-12.0)
[2021-01-04 14:45] LABS: Hematocrit (blood only) 32.5 % (42-52); Hemoglobin 11.2 g/dL (14.0-18.0); Mean Corpuscular Hemoglobin 30.7 pg (25-34); RDW Standard Deviation 48.9 fL (36.4-46.3); Red Blood Count 3.65 M/uL (4.7-6.1); White Blood Count 7.15 K/uL (4.8-10.8)
[2021-01-04 15:07] LABS: Albumin Globulin Ratio 0.4 (0.9-2); Alkaline Phosphatase 260 U/L (45-117); Total Protein 6.9 gm/dl (6.4-8.2); Troponin I 0.094 ng/ml (0-0.045)
--- NOTE | 2021-01-04 15:20 | Emergency Department Note ---
History of Present Illness General Chief complaint: Confusion Stated complaint: Confusion Time Seen by Provider: 01/04/21 15:02 Source: patient and family (Son) History of Present Illness Provider complaint: Confusion Onset (ago): unknown Location: head Associated symptoms: + confusion; no chest pain, no cough, no headaches, no nausea/vomiting or no shortness of breath History is limited due to altered mental status. This patient was sent here for evaluation of altered mental status. He was reported to have frequent falls. He denies any complaints currently. He denies any headache, neck pain, chest pain, shortness of breath, vomiting, abdominal pain or cough. He does not know why he is here. No further history is obtainable from the patient and no family is currently available. I did leave a message with his son. His son later came to the emergency department. He stated that the patient has had mental decline since the summer of this year. He has been intermittently co nfused. Today he was going to dialysis and he fell to the ground but did not hit his head. He finished dialysis but afterwards he was found to be very confused and sent here from dialysis. He has had no fevers or injury to his head as far as his son notes. Home Medications Medication Instructions Recorded Confirmed Type cholecalciferol (vitamin D3) 25 2,000 unit PO QAM 10/27/18 01/04/21 History mcg (1,000 unit) capsule (Vitamin D3) cyanocobalamin (vitamin B-12) 1,000 mcg PO QAM 10/27/18 01/04/21 History 1,000 mcg tablet (Vitamin B-12) famotidine 20 mg tablet 20 mg PO Q2D 06/01/20 01/04/21 History aspirin 81 mg tablet,delayed 81 mg PO QAM 10/24/20 01/04/21 History release lorazepam 0.5 mg tablet (Ativan) 0.5 mg PO TID PRN #30 tab 11/10/20 01/04/21 Rx doxycycline hyclate 100 mg tablet 100 mg PO BID 10 Days #20 tab 01/03/21 01/04/21 Rx carvedilol 6.25 mg tablet 6.25 mg PO BID 01/04/21 01/04/21 History furosemide 40 mg tablet 40 mg PO Q2D 01/04/21 01/04/21 History Allergies Allergy/AdvReac Type Severity Reaction Status Date / Time [id number] Reductase Allergy Severe myopathy Verified 01/02/21 22:12 Inhibitor [Qrmhgdv-[id number]-Bpa Reductase Inhibitor] LUCHO Inhibitors Allergy Unknown as per Verified 01/02/21 22:12 [facility] sitagliptin AdvReac Intermediate Lightheadedness, Verified 01/02/21 22:12 upper abdominal pain Past Med/Surg History Medical History Anemia Chronic, Hgb baseline 9-10 range per chart review Anxiety Chronic kidney disease (CKD), stage V Depression Diabetes mellitus, type II Diet controlled, Hgba1c 6.2% on 09/21/20 Dialysis patient [facility] in [place]> goes approximately 4 days per week (days of week differ) Gastric ulcer hx HTN (hypertension) Hyperlipidemia Surgical History History of cataract surgery R/L History of esophagogastroduodenoscopy (EGD) History of peritoneal dialysis Insertion of CAPD catheter (09/23/20): Grade view 2, MAC #3, ETT 7.5 at [facility] History of tooth extraction S/P colonoscopy with polypectomy S/P dialysis catheter insertion Family History Mother Diabetes Breast cancer Family history of diabetes mellitus Father Family history of diabetes mellitus Other No family history of adverse response to anesthesia Social History Smoking Status: Never smoker Tobacco Type: Cigarettes Cigarettes Per Day: 2004; Second Hand Exposure: No; Hx Alcohol Use: No Hx Substance Use: No Preferred Language: Mongolian Communication Ability: Effective Visual Impairment: No Limitations 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 How many Children do You have: 2 Feels Safe at Home: Yes Assistive Devices: Glasses Review of Systems See HPI for pertinent positives & negatives. Unobtainable due to cognitive status Physical Exam Vital Signs Vital Signs - 24 hr 01/04/21 13:08 01/04/21 13:10 01/04/21 13:20 Temperature 36.6 C Temperature Source Oral Pulse Rate 74 76 77 Pulse Rate [Apical] 80 Pulse Rate from SpO2 Sensor 79 79 76 Pulse Rhythm Respiratory Rate 16 16 14 Blood Pressure 153/69 H Blood Pressure [Right Arm] Blood Pressure Mean 97 Blood Pressure Mean [Right Arm] Pulse Oximetry 99 99 98 Oxygen Delivery Method Sepsis Recent Fever Within 48 Hours No Sepsis New/Unexplained Change in Mental Status Yes Sepsis Action Taken by Nursing No Action Required 01/04/21 13:30 01/04/21 13:40 01/04/21 13:50 Temperature Temperature Source Pulse Rate 79 76 78 Pulse Rate [Apical] Pulse Rate from SpO2 Sensor 78 73 78 Pulse Rhythm Respiratory Rate 14 14 14 Blood Pressure 151/76 H Blood Pressure [Right Arm] Blood Pressure Mean 101 Blood Pressure Mean [Right Arm] Pulse Oximetry 98 97 98 Oxygen Delivery Method Room Air Sepsis Recent Fever Within 48 Hours Sepsis New/Unexplained Change in Mental Status Sepsis Action Taken by Nursing 01/04/21 14:00 01/04/21 14:10 01/04/21 14:20 Temperature Temperature Source Pulse Rate 74 79 83 Pulse Rate [Apical] Pulse Rate from SpO2 Sensor 74 80 79 Pulse Rhythm Respiratory Rate 14 14 16 Blood Pressure Blood Pressure [Right Arm] Blood Pressure Mean Blood Pressure Mean [Right Arm] Pulse Oximetry 97 97 98 Oxygen Delivery Method Sepsis Recent Fever Within 48 Hours Sepsis New/Unexplained Change in Mental Status Sepsis Action Taken by Nursing 01/04/21 14:30 01/04/21 15:19 01/04/21 17:00 Temperature 36.8 C Temperature Source Oral Pulse Rate 72 Pulse Rate [Apical] 77 74 Pulse Rate from SpO2 Sensor 76 Pulse Rhythm Irregular Respiratory Rate 14 18 18 Blood Pressure Blood Pressure [Right Arm] 143/64 H 147/95 H Blood Pressure Mean Blood Pressure Mean [Right Arm] 90 112 Pulse Oximetry 99 99 99 Oxygen Delivery Method Room Air Room Air Sepsis Recent Fever Within 48 Hours Sepsis New/Unexplained Change in Mental Status Sepsis Action Taken by Nursing Constitutional: Vital signs reviewed. Eyes: Pupils are equal round reactive to light. Conjunctiva are noninjected. ENT: Will not open his mouth. Neck supple without meningeal signs. Respiratory: Clear to auscultation bilaterally. Breath sounds are equal bilaterally. Cardiovascular: Regular rate and rhythm. No rubs or gallops. GI: Soft, nondistended and nontender. Bowel sounds are present. Musculoskeletal: No peripheral edema. No lower extremity tenderness. Integumentary: No cyanosis. or jaundice. Neurologic: The patient is awake and alert. He is oriented to place only. He knows he is in [facility]. He answers 1996 to all subsequent questions including name and date. Extraocular movements are intact. No facial droop. Motor is 5 out of 5 all extremities. Sensation is intact to light touch all extremities. Normal speech. No pronator drift. Psychiatric: Normal affect. Not anxious appearing. Course Administered Medications Carvedilol (Carvedilol 6.25 Mg Tab) 6.25 mg PO BID [place] Stop: 02/03/21 20:59 Last Admin: 01/04/21 21:34 Dose: 6.25 mg Documented by: [id number] Doxycycline Hyclate 100 mg/ (Dextrose) 110 mls @ 50 mls/hr IV Q12H [place] Stop: 01/18/21 20:01 Last Admin: 01/04/21 21:34 Dose: 50 mls/hr Documented by: [id number] Insulin Aspart (Insulin Aspart 100 Units/Ml 3 Ml Pen) 0 units SC ACHS [place] Stop: 02/03/21 20:59 Last Admin: 01/04/21 21:40 Dose: 4 units Documented by: [id number] Cosigned by: [id number] Insulin Glargine (Insulin Glargine Solostar 100 Units/Ml 3 Ml Pen) 0 - 10 units SC BID [place] Stop: 02/03/21 20:59 Last Admin: 01/04/21 21:41 Dose: 10 units Documented by: [id number] Cosigned by: [id number] Medical Decision Making Differential Diagnosis CVA, TIA, intracranial bleed, intracranial mass, metabolic derangement, encephalopathy, meningitis Medical Records Attestation: I reviewed the patient's medical records. I did perform a limited focused review of portions of the patient's old chart on the electronic medical record. The patient was seen here 2 days ago for 2- week history of flulike symptoms. He was diagnosed with anaplasmosis with a positive smear. He had transaminitis as well as thrombocytopenia due to the anaplasmosis. He is on doxycycline. Home Medications Current Medication List: was personally reviewed by me Laboratory Data Attestation: I reviewed the patient's lab results. Result diagrams: 01/04/21 21:25 01/04/21 14:24 Lab Results 01/04/21 01/04/21 01/04/21 Range/Units 14:24 14:24 14:24 WBC 7.15 (4.8-10.8) K/uL RBC 3.65 L (4.7-6.1) M/uL Hgb 11.2 L (14.0-18.0) g/dL Hct 32.5 L (42-52) % MCV 89.0 (80-100) fL MCH 30.7 (25-34) pg MCHC 34.5 (32-36) g/dL RDW Std Deviation 48.9 H (36.4-46.3) fL RDW Coeff of Juma 15.0 H (11.5-14.5) % Plt Count 86 L (130-400) K/uL Absolute Nucleated RBC 0.05 H (0-0) K/uL Nucleated RBC % (auto) 0.8 % Neutrophils % (Manual) 55.9 % Lymphocytes % (Manual) 7.2 % Reactive Lymphs % (Man) 32.4 % Monocytes % (Manual) 4.5 % Neutrophils # (Manual) 4.00 (1.4-6.5) K/uL Total Absolute Neuts 4.00 (1.4-6.5) K/uL Lymphocytes # (Manual) 0.51 L (1.2-3.4) K/uL Reactive Lymphs # 2.32 K/uL Total Abs Lymphocytes 2.83 (1.2-3.4) K/uL Monocytes # (Manual) 0.32 (0.11-0.59) K/uL Target Cells 1+ Tear Drop Cells 1+ PT 10.9 (9.0-12.0) Seconds INR 1.1 (0.9-1.1) APTT 28.1 (21.0-31.0) Seconds PTT Ratio 1.1 Sodium 130 L (136-145) mmol/L Potassium 3.4 L (3.5-5.1) mmol/L Chloride 93 L (98-107) mmol/L Carbon Dioxide 27 (21-32) mmol/L Anion Gap 10.0 (3-11) BUN 58 H (7-18) mg/dl Creatinine 4.39 H (0.6-1.4) mg/dl Est Cr Clr Drug Dosing Not Reportable Est GFR ( Amer) 14.1 ml/min Est GFR (Non-Af Amer) 12.2 ml/min BUN/Creatinine Ratio 13.2 (10-20) Glucose 266 H (70-99) mg/dl Calcium 8.2 L (8.5-10.1) mg/dl Magnesium 2.3 (1.8-2.4) mg/dl Total Bilirubin 1.0 D (0.2-1) mg/dl AST 58 H (15-37) U/L ALT 39 (12-78) U/L Alkaline Phosphatase 260 H (45-117) U/L Troponin I 0.094 H* (0-0.045) ng/ml Total Protein 6.9 (6.4-8.2) gm/dl Albumin 1.9 L (3.4-5.0) gm/dl Globulin 5.0 H (2.5-4.0) gm/dl Albumin/Globulin Ratio 0.4 L (0.9-2) TSH 1.230 (0.300-4.500) uIu/ml Lyme Disease IgG Ab (Negative) Lyme Disease IgM Ab (Negative) COVID-19 Eval Order SARS-CoV-2 (PCR) (Negative) 01/04/21 01/04/21 01/04/21 Range/Units 14:24 15:18 15:18 WBC (4.8-10.8) K/uL RBC (4.7-6.1) M/uL Hgb (14.0-18.0) g/dL Hct (42-52) % MCV (80-100) fL MCH (25-34) pg MCHC (32-36) g/dL RDW Std Deviation (36.4-46.3) fL RDW Coeff of Juma (11.5-14.5) % Plt Count (130-400) K/uL Absolute Nucleated RBC (0-0) K/uL Nucleated RBC % (auto) % Neutrophils % (Manual) % Lymphocytes % (Manual) % Reactive Lymphs % (Man) % Monocytes % (Manual) % Neutrophils # (Manual) (1.4-6.5) K/uL Total Absolute Neuts (1.4-6.5) K/uL Lymphocytes # (Manual) (1.2-3.4) K/uL Reactive Lymphs # K/uL Total Abs Lymphocytes (1.2-3.4) K/uL Monocytes # (Manual) (0.11-0.59) K/uL Target Cells Tear Drop Cells PT (9.0-12.0) Seconds INR (0.9-1.1) APTT (21.0-31.0) Seconds PTT Ratio Sodium (136-145) mmol/L Potassium (3.5-5.1) mmol/L Chloride (98-107) mmol/L Carbon Dioxide (21-32) mmol/L Anion Gap (3-11) BUN (7-18) mg/dl Creatinine (0.6-1.4) mg/dl Est Cr Clr Drug Dosing Est GFR ( Amer) ml/min Est GFR (Non-Af Amer) ml/min BUN/Creatinine Ratio (10-20) Glucose (70-99) mg/dl Calcium (8.5-10.1) mg/dl Magnesium (1.8-2.4) mg/dl Total Bilirubin (0.2-1) mg/dl AST (15-37) U/L ALT (12-78) U/L Alkaline Phosphatase (45-117) U/L Troponin I (0-0.045) ng/ml Total Protein (6.4-8.2) gm/dl Albumin (3.4-5.0) gm/dl Globulin (2.5-4.0) gm/dl Albumin/Globulin Ratio (0.9-2) TSH (0.300-4.500) uIu/ml Lyme Disease IgG Ab Negative (Negative) Lyme Disease IgM Ab Negative (Negative) COVID-19 Eval Order Covid19 at [facility] SARS-CoV-2 (PCR) NEGATIVE (Negative) Imaging Data Radiologist's Impression: Chest X-Ray 01/04/21 14:18 XR chest 1V portable CLINICAL HISTORY: confusion COMPARISON STUDY: Chest radiograph January 02, 2021. FINDINGS: Dual lumen right internal jugular catheter is in place. There is no pneumothorax. Interstitial thickening is noted. This was shown on prior exam. There is mild cardiomegaly. Suspected trace bilateral pleural effusions. IMPRESSION: Findings suggestive of mild pulmonary edema with trace bilateral pleural effusions. ACT 112: Negative or not required by law. Electronically signed by: Oumar Gann M.D. 01/04/2021 3:[address] 01/04/21 15:18 CT SCAN OF THE BRAIN WITHOUT IV CONTRAST CLINICAL HISTORY: Change in mental status. COMPARISON STUDY: CT of the brain dated 11/10/2020. TECHNIQUE: Unenhanced axial CT scan of the brain is performed from the vertex to the skull base. A dose lowering technique was utilized adhering to the principles of ALARA. CT DOSE: 823.94 mGycm FINDINGS: Brain parenchyma: There are age-related involutional changes noting mild subcortical and periventricular microangiopathic change. There is no hemorrhage, mass effect, or evidence of acute territorial ischemia by CT criteria. Eddy- white matter differentiation is preserved. No extra-axial fluid collection is seen. Ventricles, sulci, cisterns: Prominent secondary to involutional change. Intracranial vasculature: There is atherosclerotic calcification of the cavernous carotid and vertebral arteries. Calvarium: Unremarkable. Sinuses and mastoids: The visualized paranasal sinuses are clear. The mastoid air cells are well pneumatized. Orbits: The bony orbits are grossly intact. There are bilateral ocular lens implants. IMPRESSION: There is no hemorrhage, mass effect, or evidence of acute territorial ischemia by CT criteria. ACT 112: Negative or not required by law. Electronically signed by: Jon Noyola M.D. 01/04/2021 3:56 PM ECG Data Attestation: I personally reviewed and interpreted this ECG as follows: Indication: + altered mental status Rate (beats per minute): 76 Rhythm: + atrial fibrillation ECG Intervals/blocks: + Prolonged QT ECG Camas: + Left axis deviation ECG ST segments: no ST elevation Comparison ECG Date: from (January 02, 2021) Change: no significant change MDM Narrative I did evaluate the patient as noted above. I did obtain history from the patient who states that he has no complaints or pain. I also obtain history from his son who brought him in as he has had weakness and confusion. IV access was established. I did place an order for continuous cardiac monitoring. The monitor showed normal atrial fibrillation at a rate of 73 bpm. I did order and personally review the patient's 12-lead EKG as described above. He has atrial fibrillation without acute ischemia. I did order and personally reviewed the images of the patient's chest x-ray as described above. He has trace effusions and mild pulmonary edema. I did order a urine analysis. He does appear to have a UTI. I did order and review the patient's blood work as noted in the electronic medical record. CBC does not demonstrate leukocytosis. He is anemic with a hemoglobin of 11.2. Platelet count is low at 86. He was just diagnosed with anaplasmosis and is on doxycycline. Chemistries demonstrate a sodium of 130, potassium of 3.4 and chloride of 93. Creatinine is elevated at 4.39 consistent with end-stage renal disease. Glucose is 266. Troponin is slightly elevated 0.089. Covid testing is negative. I did order a CT of the head. I did review the images myself as well as the radiology report as described above. There is no evidence of acute intracranial findings. I did reassess the patient. He remains confused but with no complaints. He denies having any chest discomfort or shortness of breath. He will be hospitalized for further care and evaluation. I did discuss case with the hospitalist and case resolution specialist. Impression & Plan Acute alteration in mental status, Weakness, Anemia, Hyperglycemia, Anaplasmosis, Acute UTI Discharge Plan Visit Data Chief Complaint: Confusion Stated Complaint: Confusion ED Provider: Edmund Geller Discharge Problem: Acute alteration in mental status, Weakness, Anemia, Hyperglycemia, Anaplasmosis, Acute UTI Patient Disposition: Admitted As Inpatient Discharge Instructions Interventions: ED Discharge Assessment Last Done: 01/04/21 19:21
--- NOTE | 2021-01-04 15:35 | XRay Report ---
XR chest 1V portable CLINICAL HISTORY: confusion COMPARISON STUDY: Chest radiograph January 02, 2021. FINDINGS: Dual lumen right internal jugular catheter is in place. There is no pneumothorax. Interstit ial thickening is noted. This was shown on prior exam. There is mild cardiomegaly. Suspected trace bi lateral pleural effusions. IMPRESSION: Findings suggestive of mild pulmonary edema with trace bilateral pleural effusions. ACT 112: Negative or not required by law. Electronically signed by: Oumar Gann M.D. 01/04/2021 3:33 PM
[2021-01-04 15:36] LABS: Platelet Count 86 K/uL (130-400)
[2021-01-04 15:37] LABS: ALC (manual) 2.83 K/uL (1.2-3.4); Lymphocytes # (manual) 0.51 K/uL (1.2-3.4); Lymphocytes % (manual) 7.2 %; Monocytes # (manual) 0.32 K/uL (0.11-0.59); Monocytes % (manual) 4.5 %; Neutrophils % (manual) 55.9 %; Reactive Lymphocytes # (manual) 2.32 K/uL; Reactive Lymphocytes % (manual) 32.4 %; Target Cells 1+; Tear Drop Cells 1+
--- NOTE | 2021-01-04 15:57 | CT Scan Report ---
CT SCAN OF THE BRAIN WITHOUT IV CONTRAST CLINICAL HISTORY: Change in mental status. COMPARISON STUDY: CT of the brain dated 11/10/2020. TECHNIQUE: Unenhanced axial CT scan of the brain is performed from the vertex to the skull base. A do se lowering technique was utilized adhering to the principles of ALARA. CT DOSE: 823.94 mGycm FINDINGS: Brain parenchyma: There are age-related involutional changes noting mild subcortical and periventric ular microangiopathic change. There is no hemorrhage, mass effect, or evidence of acute territorial i schemia by CT criteria. Eddy-white matter differentiation is preserved. No extra-axial fluid collecti on is seen. Ventricles, sulci, cisterns: Prominent secondary to involutional change. Intracranial vasculature: There is atherosclerotic calcification of the cavernous carotid and vertebr al arteries. Calvarium: Unremarkable. Sinuses and mastoids: The visualized paranasal sinuses are clear. The mastoid air cells are well pneu matized. Orbits: The bony orbits are grossly intact. There are bilateral ocular lens implants. IMPRESSION: There is no hemorrhage, mass effect, or evidence of acute territorial ischemia by CT crit erkash. ACT 112: Negative or not required by law. Electronically signed by: Jon Noyola M.D. 01/04/2021 3:56 PM
[2021-01-04 16:01] LABS: Lyme Ab IgG w/WB Rflx Negative (Negative); Lyme Ab IgM w/WB Rflx Negative (Negative)
--- NOTE | 2021-01-04 18:08 | History & Physical Report ---
Date of Service January 04, 2021 Assessment & Plan (1) Anaplasmosis: Plan: Patient is 75-year-old male with PMH HTN, HLD, ESRD on HD on mon, sat, sat, diet-controlled DM II, depression, anxiety presented to ER with complaint of confusion, generalized weakness, chills, sweats Patient seen in ER 01/02/2021 and peripheral smear: Rare intracytoplasmic inclusions are seen which are consistent with anaplasmosis infection. There is no evidence of myelodysplasia. Patient was started on doxycycline Today in ER patient afebrile, vitals stable. H/H: (baseline Hgb ~10), PLT: 86 (was 192 on 11/10/2020), corrected sodium of 133 for glucose of 266, AST: 58, ALT: 39, alk phos: 260 (liver functions previously WNL), troponin: 0.09,Cr: 4.3. Negative COVID-19 PCR. CXR: Mild pulmonary edema, trace bilateral pleural effusions CT head: No acute intracranial abnormality Hold home oral doxycycline and change to IV doxycycline If no improvement consider ID consult (2) Metabolic encephalopathy: Plan: Increased confusion past several days. Likely secondary to underlying illness- anaplasmosis CT head: No acute intracranial abnormality No significant electrolyte abnormality Treat as above and monitor (3) Weakness: (4) Fall: Plan: Generalized weakness, likely secondary to underlying illness Fall precautions PT/OT Skin tear right elbow Right elbow x-ray: 1. No definite acute fracture or joint effusion of the right elbow. 2. 6 mm calcification which projects posterior to the olecranon. This is ind eterminate although could be related to the triceps and could be correlated with clinical evidence for triceps injury. Patient with full active range of motion currently Monitor, may need to consider Ortho consult if no improvement (5) Atrial fibrillation: Plan: EKG: Atrial fibrillation. HR in 70s-80s in ER. EKG from 01/02/2021 also noted atrial fibrillation, prior EKGs no atrial fibrillation [id number]: 4 Start IV heparin Lopressor as needed Echo Trend troponin Cardiology consult (6) Elevated troponin: Plan: Troponin: 0.09. Denies CP. EKG +afib Possible elevated secondary to atrial fibrillation Trend troponin Echo (7) Hyponatremia: Plan: corrected sodium of 133 for glucose of 266. Baseline sodium~132 Monitor BMP (8) CKD (chronic kidney disease) stage 5, GFR less than 15 ml/min: Plan: HD on Saturday schedule Had dialysis 01/04/2021 Nephrology consult (9) Diabetes mellitus, type II: Plan: A1c: 6.2 in 09/2020 Diet controlled at home Random glucose:266 Basal bolus insulin per protocol A1c in a.m. (10) HTN (hypertension): Plan: Reports patient had low BP and dizziness at dialysis and was tapered off hydralazine. Son reports his carvedilol was decreased from 25 mg to 6.25 mg twice daily. Continue carvedilol DVT Prophylaxis -On IV Heparin Full Code as per discussion with pt and pt's son, SADE Follows with Dr Fiona Novoa for routine care Pt was seen and care coordinated with Dr Hernadez. See addendum History of Present Illness Chief Complaint: confusion Primary Care Provider: Fiona Novoa DO Patient is 75-year-old male with PMH HTN, HLD, ESRD on HD on sat, sat, sat, diet-controlled DM II, depression, anxiety presented to ER with complaint of confusion. History obtained from chart review and patient's son, limited history obtained from patient secondary to confusion. Patient son reports for the past 2 weeks patient has had generalized weakness and fatigue. Had vomiting and diarrhea last week that has since resolved. Patient has needed to use an old walker recently as he has been unable to ambulate without assistance. Reports has been having dizziness with standing and has had several falls. No known tick bite. Reports patient had low BP and dizziness at dialysis and was tapered off hydralazine. Son reports his carvedilol was decreased from 25 mg to 6.25 mg twice daily. 4 to 5 days ago patient with chills and sweats. Patient seen in ER 01/02/2021 for weakness and fatigue. 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 There is no evidence of myelodysplasia. Patient son reports the past 2 days patient with increased weakness and lethargy. Patient son reports patient has been increasingly confused. today fell while going to dialysis and reports skin tear to right elbow. Patient denies headache, current dizziness, chest pain, shortness of breath, cough. He currently reports some tenderness to right elbow when he moves it or when it is touched. Patient is oriented to self and knows he is at hospital, otherwise is unable to tell why he is at hospital. Today in ER patient afebrile, vitals stable. H/H: (baseline Hgb ~10), PLT: 86 (was 192 on 11/10/2020), corrected sodium of 133 for glucose of 266, AST: 58, ALT: 39, alk phos: 260 (liver functions previously WNL), troponin: 0.09,Cr: 4.3. Negative COVID-19 PCR. CXR: Mild pulmonary edema, trace bilateral pleural effusions CT head: No acute intracranial abnormality Patient being admitted for further treatment and evaluation Allergies Allergy/AdvReac Type Severity Reaction Status Date / Time Yioeydu-ZBY-QvO Reductase Allergy Severe myopathy Verified 01/11/21 11:09 Inhibitor [Cdhtyns-Qgt-Jqt Reductase Inhibitor] LUCHO Inhibitors Allergy Unknown as per Verified 01/11/21 11:09 [facility] sitagliptin AdvReac Intermediate Lightheadedness, Verified 01/11/21 11:09 upper abdominal pain Home Medications Medication Instructions Recorded Confirmed Type cholecalciferol (vitamin D3) 25 2,000 unit PO QAM 10/27/18 01/04/21 History mcg (1,000 unit) capsule (Vitamin D3) cyanocobalamin (vitamin B-12) 1,000 mcg PO QAM 10/27/18 01/04/21 History 1,000 mcg tablet (Vitamin B-12) famotidine 20 mg tablet 20 mg PO Q2D 06/01/20 01/04/21 History lorazepam 0.5 mg tablet (Ativan) 0.5 mg PO TID PRN #30 tab 11/10/20 01/04/21 Rx carvedilol 6.25 mg tablet 6.25 mg PO BID 01/04/21 01/04/21 History furosemide 40 mg tablet 40 mg PO Q2D 01/04/21 01/04/21 History cephalexin 500 mg capsule 500 mg PO UD 4 Days #4 cap 01/15/21 Rx Past Med/Surg History Medical History (Updated 01/18/21 @ 00:09 by Background Amanda) Anemia Chronic, Hgb baseline 9-10 range per chart review Anxiety Chronic kidney disease (CKD), stage V Depression Diabetes mellitus, type II Diet controlled, Hgba1c 6.2% on 09/21/20 Dialysis patient [facility] in [place]> goes approximately 4 days per week (days of week differ) Gastric ulcer hx HTN (hypertension) Hyperlipidemia Retroperitoneal hematoma Surgical History History of cataract surgery R/L History of esophagogastroduodenoscopy (EGD) History of peritoneal dialysis Insertion of CAPD catheter (09/23/20): Grade view 2, MAC #3, ETT 7.5 at [facility] History of tooth extraction S/P colonoscopy with polypectomy S/P dialysis catheter insertion Family History Mother Diabetes Breast cancer Family history of diabetes mellitus Father Family history of diabetes mellitus Other No family history of adverse response to anesthesia Social History Smoking Status: Never smoker Tobacco Type: Cigarettes Cigarettes Per Day: 2004; Second Hand Exposure: No; Hx Alcohol Use: No Hx Substance Use: No Preferred Language: Khmer Communication Ability: Effective Visual Impairment: No Limitations Special Assemblies Supervisor Required: No Beliefs That Will Affect Care: None marital status: / Current Living Situation: Alone Current Living Situation Comment: Son Galen Corral lives next door. How many Children do You have: 2 Feels Safe at Home: Yes Assistive Devices: Hearing Aid - Left Review of Systems Review of Systems: Unobtainable due to cognitive status Physical Exam Physical Exam: General: no distress, WDWN Head: normocephalic, atraumatic Eyes: PERRL, EOM's intact, conjunctiva non-injected, anicteric ENT: normal inspection external ears, nose, mucous membranes moist Neck: supple, trachea midline Lungs: clear, no respiratory distress, no wheezing/rhonchi/rales CV: irregularly irregular, rate 76, trace pretibial edema Abd: normal BS, soft, non-tender Ext: no cyanosis, no calf tenderness; RUE: +right elbow with ecchymosis, non- tender to palpation, active flexion and extension and pronation supination intact, +skin tear posterior elbow/forearm, distal pulses intact; strong and equal resident care manager rn strength, Active ROM of bilateral upper extremities. Active flexion, extension of bilateral hips, knees, ankles. Neuro: A&O x 3, no focal deficits noted, normal affect Skin: warm, dry, +scattered ecchymosis Results & Data Results & Data ([facility]) Vital Signs (Past 12 Hours) Vital Signs Temp Pulse Pulse Resp BP BP Pulse Ox 01/04/21 17:00 74 18 147/95 H 99 01/04/21 15:19 36.8 C 77 18 143/64 H 99 01/04/21 14:30 72 14 99 01/04/21 14:20 83 16 98 01/04/21 14:10 79 14 97 01/04/21 14:00 74 14 97 01/04/21 13:50 78 14 98 01/04/21 13:40 76 14 97 01/04/21 13:30 79 14 151/76 H 98 01/04/21 13:20 36.6 C 77 80 14 153/69 H 98 01/04/21 13:10 76 16 99 01/04/21 13:08 74 16 99 Laboratory Results Short CBC 01/04/21 Range/Units 14:24 WBC 7.15 (4.8-10.8) K/uL Hgb 11.2 L (14.0-18.0) g/dL Hct 32.5 L (42-52) % Plt Count 86 L (130-400) K/uL BMP 01/04/21 14:24 Sodium 130 L Potassium 3.4 L Chloride 93 L Carbon Dioxide 27 BUN 58 H Creatinine 4.39 H Glucose 266 H Calcium 8.2 L Cardiac Enzymes 01/04/21 Range/Units 14:24 Troponin I 0.094 H* (0-0.045) ng/ml Liver Function 01/04/21 Range/Units 14:24 Total Bilirubin 1.0 D (0.2-1) mg/dl AST 58 H (15-37) U/L ALT 39 (12-78) U/L Alkaline Phosphatase 260 H (45-117) U/L Albumin 1.9 L (3.4-5.0) gm/dl Urine 01/04/21 Range/Units 18:54 Urine Color Yellow Urine Appearance Cloudy A (Clear) Urine pH 5.0 (4.5-7.5) Ur Specific Purchase 1.011 (1.000-1.030) Urine Protein Trace H (Negative) Urine Glucose (UA) 1+ H (Negative) Diagnostic Findings Chest X-Ray 01/04/21 14:18 XR chest 1V portable CLINICAL HISTORY: confusion COMPARISON STUDY: Chest radiograph January 02, 2021. FINDINGS: Dual lumen right internal jugular catheter is in place. There is no pneumothorax. Interstitial thickening is noted. This was shown on prior exam. There is mild cardiomegaly. Suspected trace bilateral pleural effusions. IMPRESSION: Findings suggestive of mild pulmonary edema with trace bilateral pleural effusions. ACT 112: Negative or not required by law. Electronically signed by: Oumar Gann M.D. 01/04/2021 3:[address] 01/04/21 15:18 CT SCAN OF THE BRAIN WITHOUT IV CONTRAST CLINICAL HISTORY: Change in mental status. COMPARISON STUDY: CT of the brain dated 11/10/2020. TECHNIQUE: Unenhanced axial CT scan of the brain is performed from the vertex to the skull base. A dose lowering technique was utilized adhering to the principles of ALARA. CT DOSE: 823.94 mGycm FINDINGS: Brain parenchyma: There are age-related involutional changes noting mild subcortical and periventricular microangiopathic change. There is no hemorrhage, mass effect, or evidence of acute territorial ischemia by CT criteria. Eddy- white matter differentiation is preserved. No extra-axial fluid collection is seen. Ventricles, sulci, cisterns: Prominent secondary to involutional change. Intracranial vasculature: There is atherosclerotic calcification of the cavernous carotid and vertebral arteries. Calvarium: Unremarkable. Sinuses and mastoids: The visualized paranasal sinuses are clear. The mastoid air cells are well pneumatized. Orbits: The bony orbits are grossly intact. There are bilateral ocular lens implants. IMPRESSION: There is no hemorrhage, mass effect, or evidence of acute territorial ischemia by CT criteria. ACT 112: Negative or not required by law. Electronically signed by: Jon Noyola M.D. 01/04/2021 3:56 PM Elbow X-Ray 01/04/21 18:06 XR elbow RT min 3V routine CLINICAL HISTORY: fall, right elbow pain COMPARISON: None FINDINGS: Alignment of the right elbow is anatomic. There is no acute fracture. There is no evidence for a right elbow joint effusion. 6 mm calcific density projects posterior to the olecranon. There is extensive vascular calcification. IMPRESSION: 1. No definite acute fracture or joint effusion of the right elbow. 2. 6 mm calcification which projects posterior to the olecranon. This is indete rminate although could be related to the triceps and could be correlated with clinical evidence for triceps injury. ACT 112: Negative or not required by law. Electronically signed by: Oumar Gann M.D. 01/04/2021 6:35 PM Code Status & VTE Plan VTE Prophylaxis Plan VTE Prophylaxis will be ordered: Yes Supervising Physician Co-Signing Physician Notes Pt was seen and examined. Agreed with Autumn VILLEGAS exam, assessment and plan. 75-year-old male with PMH HTN, HLD, ESRD on HD on mon, sat, sat, diet-controlled DM II, depression, anxiety presented to ER with complaint of confusion. History obtained from chart review and patient's son due to pt confusion. As per son, Pt has been feeling generalized weakness and fatigue. Patient seen in ER 01/02/2021 for weakness and fatigue. At that time had noted platelets of 73, had positive Anaplasma smear and was discharged on doxycycline. 01/02/21 peripheral smear: Rare intracytoplasmic inclusions are seen which are consistent with anaplasmosis infection. There is no evidence of myelodysplasia.Today in ER patient afebrile, vitals stable. H/H: 11/32 (baseline Hgb ~10), PLT: 86 (was 192 on 11/10/2020), corrected sodium of 133 for glucose of 266, AST: 58, ALT: 39, alk phos: 260 (l iver functions previously WNL), troponin: 0.09,Cr: 4.3. Negative COVID-19 PCR. CXR showed mild pulmonary edema, trace bilateral pleural effusions. CT head showed no acute intracranial abnormality. UA is abnormal, will start on Rocephin IV. Follow up blood cx and urine cx. PT/OT eval. Will consult nephrology for HD. Fall precaution. Will monitor closely. 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
--- NOTE | 2021-01-04 18:36 | XRay Report ---
XR elbow RT min 3V routine CLINICAL HISTORY: fall, right elbow pain COMPARISON: None FINDINGS: Alignment of the right elbow is anatomic. There is no acute fracture. There is no evidence for a right elbow joint effusion. 6 mm calcific density projects posterior to the olecranon. There i s extensive vascular calcification. IMPRESSION: 1. No definite acute fracture or joint effusion of the right elbow. 2. 6 mm calcification which projects posterior to the olecranon. This is indeterminate although could be related to the triceps and could be correlated with clinical evidence for triceps injury. ACT 112: Negative or not required by law. Electronically signed by: Oumar Gann M.D. 01/04/2021 6:35 PM
[2021-01-04 19:01] LABS: Appearance Urine Cloudy (Clear); Bacteria Urine Automated 4+ (Negative); Bilirubin Urine Negative (Negative); Blood Urine Negative (Negative); Color Urine Yellow; Glucose Urine UA 1+ (Negative); Ketones Urine Trace (Negative); Leukocyte Esterase Urine 1+ (Negative); Nitrite Urine Negative (Negative); Protein Urine Trace (Negative); Specific Gravity Urine 1.011 (1.000-1.030); Urobilinogen Urine Negative (Negative); WBC Urine Automated >30 /hpf (0-5)
[2021-01-04] MEDS ORDERED: POLYETHYLENE (MIRALAX) 17 GM PACK PO PRN (20:02)
[2021-01-04] MEDS ORDERED: CARBOHYDRATES FOR HYPOGLYCEMIA PO PRN (20:02)
[2021-01-04] MEDS ORDERED: GLUCOSE 10 TABS/TUBE PO PRN (20:02)
[2021-01-04] MEDS ORDERED: Heparin IV Adult Wt-Based Standard *NO* Bolus Protocol IV SCH (20:02)
[2021-01-04] MEDS ORDERED: GLUCAGON FOR INJ 1 MG VIAL SQ PRN (20:02)
[2021-01-04] MEDS ORDERED: METOPROLOL TARTRATE 1 MG/ML VIAL IV PRN (20:02)
[2021-01-04] MEDS ORDERED: ACETAMINOPHEN 325 MG TAB PO PRN (20:02)
[2021-01-04] MEDS ORDERED: GLUCOSE 40% GEL 15 GM TUBE PO PRN (20:02)
[2021-01-04] MEDS ORDERED: DEXTROSE 50% 50 ML SYRINGE IV PRN (20:02)
[2021-01-04] MEDS: carvediloL 6.25 MG TAB PO SCH (21:34)
[2021-01-04] MEDS: DOXYCYCLINE HYCLATE 100 MG in DEXTROSE 5% 100 ML IV SCH (21:34)
[2021-01-04 21:36] LABS: Basophils # (auto) 0.03 K/uL (0-0.2); Basophils % (auto) 0.4 %; Eosinophils # (auto) 0.03 K/uL (0-0.5); Eosinophils % (auto) 0.4 %; Hematocrit (blood only) 27.8 % (42-52); Hemoglobin 9.5 g/dL (14.0-18.0); Immature Granulocytes # (auto) 0.02 K/uL (0.00-0.02); Immature Granulocytes % (auto) 0.3 %; Lymphocytes # (auto) 3.19 K/uL (1.2-3.4); Lymphocytes % (auto) 46.6 %; Mean Corpuscular Hemoglobin 30.5 pg (25-34); Mean Corpuscular Volume 89.4 fL (80-100); Mean Platelet Volume 11.3 fL (7.4-10.4); Monocytes % (auto) 7.3 %; Neutrophils # (auto) 3.07 K/uL (1.4-6.5); Platelet Count 117 K/uL (130-400); RDW Coefficient of Variation 15.1 % (11.5-14.5); Red Blood Count 3.11 M/uL (4.7-6.1); White Blood Count 6.84 K/uL (4.8-10.8)
[2021-01-04] MEDS: INSULIN ASPART 100 UNITS/ML 3 ML PEN SC SCH (21:40)
[2021-01-04] MEDS: INSULIN GLARGINE SOLOSTAR 100 UNITS/ML 3 ML PEN SC SCH (21:41)
[2021-01-04 21:53] LABS: INR 1.2 (0.9-1.1); Partial Thromboplastin Ratio 1.2; Partial Thromboplastin Time 30.7 Seconds (21.0-31.0); Prothrombin Time 11.6 Seconds (9.0-12.0)
[2021-01-04 21:58] LABS: Mean Corpuscular Hgb Conc 34.2 g/dL (32-36)
[2021-01-04] MEDS: HEPARIN SODIUM/DEXTROSE 25,000 UNITS/500 ML BAG IV SCH (22:14)
[2021-01-04] MEDS: cefTRIAXone SODIUM 1,000 MG in DEXTROSE 5% 50 ML IV SCH (23:11)
[2021-01-05 06:35] LABS: Hematocrit (blood only) 28.2 % (42-52); Hemoglobin 9.9 g/dL (14.0-18.0); Mean Corpuscular Hemoglobin 30.8 pg (25-34); Mean Corpuscular Hgb Conc 35.1 g/dL (32-36); Mean Corpuscular Volume 87.9 fL (80-100); Mean Platelet Volume 11.4 fL (7.4-10.4); Platelet Count 136 K/uL (130-400); RDW Coefficient of Variation 14.9 % (11.5-14.5); RDW Standard Deviation 48.5 fL (36.4-46.3); Red Blood Count 3.21 M/uL (4.7-6.1); White Blood Count 8.01 K/uL (4.8-10.8)
[2021-01-05 06:54] LABS: Partial Thromboplastin Ratio 3.3
[2021-01-05 07:11] LABS: Estimated Average Glucose 197 mg/dl; Hemoglobin A1C 8.5 % (4.5-5.6)
[2021-01-05 07:24] LABS: Partial Thromboplastin Time 87.7 Seconds (21.0-31.0)
[2021-01-05 07:25] LABS: Albumin Globulin Ratio 0.4 (0.9-2); Albumin Level 1.7 gm/dl (3.4-5.0); Bilirubin,Total 0.7 mg/dl (0.2-1); Calcium 7.9 mg/dl (8.5-10.1); Creatinine Clr Calc Pharmacy 10.6 ml/min; Est GFR (African American) 11.7 ml/min; Est GFR (Non-African American) 10.1 ml/min; Globulin 4.3 gm/dl (2.5-4.0); Potassium 2.7 mmol/L (3.5-5.1)
[2021-01-05] MEDS: carvediloL 6.25 MG TAB PO SCH ×2 (07:39→20:29)
[2021-01-05] MEDS: FAMOTIDINE 20 MG TAB PO SCH (07:40)
[2021-01-05] MEDS: CHOLECALCIFEROL 1,000 UNITS 25 MCG TAB PO SCH (07:40)
[2021-01-05] MEDS: FUROSEMIDE 40 MG TAB PO SCH (07:40)
[2021-01-05] MEDS: CYANOCOBALAMIN 500 MCG TABLET (VITAMIN B-12) PO SCH (07:40)
[2021-01-05] MEDS: ASPIRIN 81 MG ECTAB PO SCH (07:40)
[2021-01-05] MEDS: DOXYCYCLINE HYCLATE 100 MG in DEXTROSE 5% 100 ML IV SCH ×2 (07:42→21:17)
[2021-01-05] MEDS ORDERED: INFLUENZA VACCINE HIGH DOSE PF 65+ 0.7 ML SYR IM ONE (08:00)
[2021-01-05] MEDS ORDERED: PNEUMOCOCCAL POLYSACCHARIDES 25 MCG/0.5 ML VIAL/SYR IM ONE (08:00)
[2021-01-05] MEDS: INSULIN GLARGINE SOLOSTAR 100 UNITS/ML 3 ML PEN SC SCH ×2 (08:41→20:32)
[2021-01-05] MEDS: INSULIN ASPART 100 UNITS/ML 3 ML PEN SC SCH ×4 (08:48→20:32)
[2021-01-05] MEDS ORDERED: POTASSIUM CHLORIDE CRTAB 20 MEQ TABCR PO STA (11:24)
--- NOTE | 2021-01-05 11:44 | Cardiology Consultation ---
Date of Consultation January 05, 2021 Assessment & Plan (1) Atrial fibrillation: (2) Acute alteration in mental status: (3) Acute UTI: (4) Elevated troponin: (5) Fall: (6) Thrombocytopenia: (7) Upper GI bleed: (8) Ambulatory dysfunction: (9) Diabetes mellitus, type II: (10) HTN (hypertension): (11) Hyperlipidemia: (12) Anemia: The patient is currently in rate controlled atrial fibrillation and is started on a heparin drip. At this point I am not quite sure what to make of long-term anticoagulation candidacy given his confusion. Rates are currently controlled and should be continued on his current dose of carvedilol. Decision on long-term anticoagulation will be made once the patient's mental status returns to baseline. Not a DOAC candidate given renal failure. History of Present Illness Reason for Consultation: new onset afib Requesting Physician: EDUARDO Attending Physician: Rochelle Hernadez MD History of Present Illness It was my pleasure to see Mr. Jack in cardiac consultation today January 05, 2021. He is currently very confused and unable to respond to my questions appropriately, history obtained through review of medical records. He was previously seen in our cardiology clinic by Dr. Beasley for prerenal transplant only. The patient presented to [facility] with reports of 2 weeks of generalized weakness and fatigue. He started developing vomiting and diarrhea. He is recently been having low blood pressures and dizziness on dialysis and his medications have been adjusted. Patient came into the ER on the for weakness and fatigue and was diagnosed with anaplasmosis and discharged home on antibiotics. There are no reports of any cardiac complaints of chest pain, shortness of breath, palpitations, lightheadedness, dizziness or syncope. Past medical history: 1. Class 4 chronic kidney disease, diabetic/hypertensive 2. Hypertension with moderately labile blood pressure 3. Hyperlipidemia with past statin induced myopathy 4. Type 2 diabetes mellitus since age 39 Allergies Allergy/AdvReac Type Severity Reaction Status Date / Time Wevdvko-CGA-PfL Reductase Allergy Severe myopathy Verified 01/02/21 22:12 Inhibitor [Zesstcg-Gzq-Uih Reductase Inhibitor] LUCHO Inhibitors Allergy Unknown as per Verified 01/02/21 22:12 [facility] sitagliptin AdvReac Intermediate Lightheadedness, Verified 01/02/21 22:12 upper abdominal pain Home Medications Medication Instructions Recorded Confirmed Type cholecalciferol (vitamin D3) 25 2,000 unit PO QAM 10/27/18 01/04/21 History mcg (1,000 unit) capsule (Vitamin D3) cyanocobalamin (vitamin B-12) 1,000 mcg PO QAM 10/27/18 01/04/21 History 1,000 mcg tablet (Vitamin B-12) famotidine 20 mg tablet 20 mg PO Q2D 06/01/20 01/04/21 History aspirin 81 mg tablet,delayed 81 mg PO QAM 10/24/20 01/04/21 History release lorazepam 0.5 mg tablet (Ativan) 0.5 mg PO TID PRN #30 tab 11/10/20 01/04/21 Rx doxycycline hyclate 100 mg tablet 100 mg PO BID 10 Days #20 tab 01/03/21 01/04/21 Rx carvedilol 6.25 mg tablet 6.25 mg PO BID 01/04/21 01/04/21 History furosemide 40 mg tablet 40 mg PO Q2D 01/04/21 01/04/21 History Patient History Medical History Anemia Chronic, Hgb baseline 9-10 range per chart review Anxiety Chronic kidney disease (CKD), stage V Depression Diabetes mellitus, type II Diet controlled, Hgba1c 6.2% on 09/21/20 Dialysis patient [facility] in [place]> goes approximately 4 days per week (days of week differ) Gastric ulcer hx HTN (hypertension) Hyperlipidemia Surgical History History of cataract surgery R/L History of esophagogastroduodenoscopy (EGD) History of peritoneal dialysis Insertion of CAPD catheter (09/23/20): Grade view 2, MAC #3, ETT 7.5 at [facility] History of tooth extraction S/P colonoscopy with polypectomy S/P dialysis catheter insertion Family History Mother Diabetes Breast cancer Family history of diabetes mellitus Father Family history of diabetes mellitus Other No family history of adverse response to anesthesia Social History Smoking Status: Never smoker Tobacco Type: Cigarettes Cigarettes Per Day: 2003; Second Hand Exposure: No; Hx Alcohol Use: No Hx Substance Use: No Preferred Language: Indian Communication Ability: Effective Visual Impairment: No Limitations 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 How many Children do You have: 2 Feels Safe at Home: Yes Assistive Devices: Glasses Physical Exam Physical Exam: General: Awake, alert but very confused.. No acute distress. HEENT: Normocephalic, atraumatic. Pupils equal, round and reactive to light and accommodation. Extraocular muscles are intact. Anicteric sclera. Moist mucous membranes. Neck: No JVD. No bruit. Cardiovascular: irregularly irregular, unable to appreciate murmur, rub or gallop. Pulmonary: Clear to auscultation bilaterally. No rales, rhonchi, or wheezing. Abdomen: Bowel sounds x 4, soft. No rebound, guarding or tenderness. No organomegaly. Extremities: No clubbing, cyanosis or edema. +2 pedal pulses bilaterally. Skin: Warm and dry. Results & Data ([facility]) Vital Signs (Past 12 Hours) Vital Signs Temp Pulse Pulse Resp BP BP Pulse Ox 01/05/21 11:07 36.5 C 88 16 150/63 H 97 01/05/21 07:14 36.6 C 72 18 151/73 H 95 01/05/21 04:08 36.3 C L 67 18 154/63 H 95 01/05/21 04:07 70 01/05/21 01:13 65 (1) Diabetes mellitus, type II Diabetes mellitus complication status: without complication Diabetes mellitus mcfp insulin use: unspecified mcfp insulin use status Qualified Code(s): E11.9 - Type 2 diabetes mellitus without complications (2) Anemia Anemia type: unspecified type Qualified Code(s): D64.9 - Anemia, unspecified
--- NOTE | 2021-01-05 13:18 | Electrocardiogram Report ---
Test Reason : Blood Pressure : / mmHG Vent. Rate : 076 BPM Atrial Rate : 394 BPM P-R Int : 000 ms QRS Dur : 106 ms QT Int : 400 ms P-R-T Axes : 000 -38 035 degrees QTc Int : 450 ms Atrial fibrillation Left axis deviation Septal infarct , age undetermined Abnormal ECG When compared with ECG of 02-JAN-2021 18:37, No significant change was found Confirmed by Jn Beckham ([id number]) on 01/05/2021 1:18:17 PM Referred By: Confirmed By:Jn Beckham
[2021-01-05 14:57] LABS: Partial Thromboplastin Ratio 1.6; Partial Thromboplastin Time 41.2 Seconds (21.0-31.0)
--- NOTE | 2021-01-05 15:08 | Electrocardiogram Report ---
Test Reason : Blood Pressure : / mmHG Vent. Rate : 069 BPM Atrial Rate : 089 BPM P-R Int : 000 ms QRS Dur : 106 ms QT Int : 478 ms P-R-T Axes : 000 -12 020 degrees QTc Int : 512 ms Atrial fibrillation Incomplete left bundle block Abnormal ECG When compared with ECG of 04-JAN-2021 14:26, (unconfirmed) No significant change was found Confirmed by Jn Beckham ([id number]) on 01/05/2021 3:08:06 PM Referred By: REFERRED SELF Confirmed By:Jn Beckham
--- NOTE | 2021-01-05 19:18 | Hospitalist Progress Note ---
Date of Service January 05, 2021 Assessment & Plan (1) Acute UTI: (2) Weakness: (3) Fall: Plan: Patient is 75-year-old male with PMH HTN, HLD, ESRD on HD on sat, sat, sat, diet-controlled DM II, depression, anxiety presented to ER with complaint of confusion, generalized weakness, chills, sweats Patient seen in ER 01/02/2021 and peripheral smear: Rare intracytoplasmic inclusions are seen which are consistent with anaplasmosis infection. There is no evidence of myelodysplasia. Patient was started on doxycycline Generalized weakness possible related to acute illness (UTI and Anaplasmosis) Urine cx grew gram negative bacilli Continue IV rocephin Blood cx pending Will follow urine sensitivity Continue PT/OT and fall precaution Skin tear right elbow Right elbow x-ray: 1. No definite acute fracture or joint effusion of the right elbow. 2. 6 mm calcification which projects posterior to the olecranon. This is indeterminate although could be related to the triceps and could be correlated with clinical evidence for triceps injury. No decrease range of motion currently Will add triple abx (4) Anaplasmosis: Plan: CXR: Mild pulmonary edema, trace bilateral pleural effusions CT head: No acute intracranial abnormality Continue doxycycline (5) Metabolic encephalopathy: Plan: Mostly due to acute illness (anaplasmosis and UTI) CT head showed no acute intracranial abnormality Urine cx positive for gram negative bacilli Continue monitor closely (6) Atrial fibrillation: Plan: EKG showed Atrial fibrillation on admission with rate control [id number]: 4 Continue IV heparin during hospital course Cardiology on board Does not seem to be good candidate for ferry terminal agent anticoagulant due to fall risks and confusion Will defer anticoagulant decision to Cardilogy Continue carvedilol 6.25mg BID (7) Elevated troponin: Plan: Troponin: 0.09. Denies CP. EKG +afib Possible elevated secondary to atrial fibrillation Trop trending down Echo showed no LV wall motion abnormality with EF 55-60% (8) Hyponatremia: Plan: corrected sodium of 133 for glucose of 266. Baseline sodium~132 Monitor BMP (9) CKD (chronic kidney disease) stage 5, GFR less than 15 ml/min: Plan: HD on Saturday schedule Had dialysis 01/04/2021 Nephrology consult (10) Diabetes mellitus, type II: Plan: Most recent Hba1c 8.5 Diet controlled at home Random glucose:266 Basal bolus insulin per protocol Continue monitor BS (11) HTN (hypertension): Plan: Reports patient had low BP and dizziness at dialysis and was tapered off hydralazine. Son reports his carvedilol was decreased from 25 mg to 6.25 mg twice daily. Continue carvedilol DVT Prophylaxis -On IV Heparin Full Code as per discussion with pt and pt's son, SADE Follows with Dr Fiona Novoa for routine care Admission and Anticipated Discharge Date Admission Date: January 04, 2021 Subjective Pt was seen and examined for follow up of confusion and weakness Sitting in chair with no acute distress Pt seems to be confused and very hard to hear He denies any complaint Review of Systems Review of Systems: All systems reviewed & are unremarkable except as noted in Subjective Physical Exam Physical Exam: General- No acute distress Head- atraumatic Eyes- PERRL, EOMI, ENT- oropharynx clear Neck- supple, no JVD Lungs- +decrease hearing function Heart- irregular rhythm; no murmur Abdomen- normal bowel sounds, soft, nontender Extremities- no calf tenderness Neuro- alert, PERRL, EOMI; no facial palsy; no dysarthria Skin- warm & dry, right elbow skin tear Results & Data Results & Data ([facility]) Vital Signs (Past 12 Hours) Vital Signs Temp Pulse Resp BP BP Pulse Ox 01/05/21 19:00 36.7 C 81 20 168/93 H 97 01/05/21 15:02 36.6 C 94 H 16 144/71 H 94 01/05/21 11:07 36.5 C 88 16 150/63 H 97 (1) Diabetes mellitus, type II Diabetes mellitus complication status: without complication Diabetes mellitus longterm insulin use: unspecified ferry terminal agent insulin use status Qualified Code(s): E11.9 - Type 2 diabetes mellitus without complications
[2021-01-05 21:51] LABS: Partial Thromboplastin Ratio 2.2
[2021-01-05] MEDS: cefTRIAXone SODIUM 1,000 MG in DEXTROSE 5% 50 ML IV SCH (22:03)
[2021-01-05 22:09] LABS: Partial Thromboplastin Time 56.8 Seconds (21.0-31.0)
[2021-01-05] MEDS: HEPARIN SODIUM/DEXTROSE 25,000 UNITS/500 ML BAG IV SCH (22:23)
[2021-01-06 06:46] LABS: Basophils # (auto) 0.02 K/uL (0-0.2); Basophils % (auto) 0.2 %; Eosinophils # (auto) 0.07 K/uL (0-0.5); Eosinophils % (auto) 0.7 %; Hematocrit (blood only) 28.5 % (42-52); Hemoglobin 9.9 g/dL (14.0-18.0); Immature Granulocytes # (auto) 0.03 K/uL (0.00-0.02); Immature Granulocytes % (auto) 0.3 %; Lymphocytes # (auto) 2.86 K/uL (1.2-3.4); Lymphocytes % (auto) 27.2 %; Mean Corpuscular Hemoglobin 30.6 pg (25-34); Mean Corpuscular Hgb Conc 34.7 g/dL (32-36); Mean Platelet Volume 11.8 fL (7.4-10.4); Monocytes # (auto) 0.74 K/uL (0.11-0.59); Neutrophils # (auto) 6.79 K/uL (1.4-6.5); Neutrophils % (auto) 64.6 %; Platelet Count 155 K/uL (130-400); RDW Standard Deviation 48.6 fL (36.4-46.3); Red Blood Count 3.24 M/uL (4.7-6.1); White Blood Count 10.51 K/uL (4.8-10.8)
[2021-01-06 07:00] LABS: Partial Thromboplastin Ratio 2.7
[2021-01-06 07:12] LABS: Partial Thromboplastin Time 70.3 Seconds (21.0-31.0)
[2021-01-06] MEDS: ASPIRIN 81 MG ECTAB PO SCH (08:05)
[2021-01-06] MEDS: INSULIN ASPART 100 UNITS/ML 3 ML PEN SC SCH ×4 (08:05→20:49)
[2021-01-06] MEDS: CYANOCOBALAMIN 500 MCG TABLET (VITAMIN B-12) PO SCH (08:06)
[2021-01-06] MEDS: CHOLECALCIFEROL 1,000 UNITS 25 MCG TAB PO SCH (08:06)
[2021-01-06] MEDS: DOXYCYCLINE HYCLATE 100 MG in DEXTROSE 5% 100 ML IV SCH ×2 (08:07→20:44)
[2021-01-06] MEDS: INSULIN GLARGINE SOLOSTAR 100 UNITS/ML 3 ML PEN SC SCH ×2 (08:07→20:49)
[2021-01-06 10:16] LABS: Albumin Globulin Ratio 0.4 (0.9-2); Albumin Level 1.8 gm/dl (3.4-5.0); BUN Creatinine Ratio 13.8 (10-20); Bilirubin,Total 0.8 mg/dl (0.2-1); Calcium 8.4 mg/dl (8.5-10.1); Creatinine Clr Calc Pharmacy 9.3 ml/min; Est GFR (African American) 9.9 ml/min; Est GFR (Non-African American) 8.5 ml/min; Globulin 4.6 gm/dl (2.5-4.0); Potassium 3.4 mmol/L (3.5-5.1); Total Protein 6.4 gm/dl (6.4-8.2)
[2021-01-06] MEDS: carvediloL 6.25 MG TAB PO SCH ×2 (11:01→20:40)
[2021-01-06] MEDS ORDERED: SODIUM CHLORIDE 0.9% 1000ML 1,000 ML IV PRN (11:05)
[2021-01-06] MEDS ORDERED: EPOETIN ALFA 10,000 UNITS/ML VIAL IV ONE (11:05)
--- NOTE | 2021-01-06 12:41 | Cardiology Progress Note ---
Date of Service January 06, 2021 Assessment & Plan (1) Atrial fibrillation: (2) Acute alteration in mental status: (3) Acute UTI: (4) Elevated troponin: (5) Fall: (6) Thrombocytopenia: (7) Upper GI bleed: (8) Ambulatory dysfunction: (9) Diabetes mellitus, type II: (10) HTN (hypertension): (11) Hyperlipidemia: (12) Anemia: Plan: The patient is currently in rate controlled atrial fibrillation and is started on a heparin drip. At this point I am not quite sure what to make of long-term anticoagulation candidacy given his confusion. Rates are currently controlled and should be continued on his current dose of carvedilol. Decision on long-term anticoagulation will be made once the patient's mental status returns to baseline. Not a DOAC candidate given renal failure. Admission and Anticipated Discharge Date Admission Date: January 04, 2021 Subjective Patient seen and examined, chart reviewed. Remains significantly confused. Telemetry reviewed: Rate controlled atrial fibrillation. Review of Systems Review of Systems: Unobtainable due to cognitive status Physical Exam Physical Exam: General: Awake, alert but very confused.. No acute distress. HEENT: Normocephalic, atraumatic. Pupils equal, round and reactive to light and accommodation. Extraocular muscles are intact. Anicteric sclera. Moist mucous membranes. Neck: No JVD. No bruit. Cardiovascular: irregularly irregular, unable to appreciate murmur, rub or gallop. Pulmonary: Clear to auscultation bilaterally. No rales, rhonchi, or wheezing. Abdomen: Bowel sounds x 4, soft. No rebound, guarding or tenderness. No organomegaly. Extremities: No clubbing, cyanosis or edema. +2 pedal pulses bilaterally. Skin: Warm and dry. Results & Data ([facility]) Vital Signs (Past 12 Hours) Vital Signs Temp Pulse Pulse Pulse Resp BP BP 01/06/21 12:00 84 153/70 H 01/06/21 11:47 75 152/76 H 01/06/21 11:40 36.5 C 71 01/06/21 11:24 36.5 C 75 18 148/69 H 01/06/21 07:32 75 01/06/21 07:18 36.8 C 72 18 125/95 01/06/21 03:00 36.4 C L 51 L 22 170/69 H 01/06/21 02:17 70 Pulse Ox 01/06/21 12:00 01/06/21 11:47 01/06/21 11:40 01/06/21 11:24 94 01/06/21 07:32 01/06/21 07:18 90 01/06/21 03:00 96 01/06/21 02:17 (1) Diabetes mellitus, type II Diabetes mellitus complication status: without complication Diabetes mellitus computer terminal operator insulin use: unspecified computer terminal operator insulin use status Qualified Code(s): E11.9 - Type 2 diabetes mellitus without complications (2) Anemia Anemia type: unspecified type Qualified Code(s): D64.9 - Anemia, unspecified
--- NOTE | 2021-01-06 13:10 | Consultation Report ---
NEPHROLOGY CONSULTATION NOTE DATE OF SERVICE: 01/06/2021 REASON FOR CONSULTATION: Dialysis patient admitted to the hospital. HISTORY OF PRESENT ILLNESS: The patient is a 75-year-old male with extensive medical problems includ ing end-stage renal disease, on hemodialysis Saturday, Saturday, Saturday, who presented to the hospital yesterday with complaints of confusion. It is worth noting that the patient is already confused at baseline. The patient's son reported that for the last few weeks, patient has had progressive weakne ss and fatigue as well as some vomiting and diarrhea last week that has since resolved. His last allyson lysis was on Saturday and had some low blood pressure. The patient was also seen in the [facility] on 01/02 for weakness and fatigue. At that time, he was noted to have a low platelet count and positive Anaplasma smear and was discharged on doxycycline. He is due for dialysis today. The patient is pleasantly confused and really unable to tell me any meaningful history. In fact, he was not even able to tell where he gets dialysis and who his kidney doctor is. ALLERGIES: LIST WAS REVIEWED IN DETAIL AND IS PER THE RECONCILIATION LIST. MEDICATIONS: Home medication list was reviewed and is as per the reconciliation list. PAST MEDICAL AND SURGICAL HISTORY: Anemia of chronic kidney disease stage V, ESRD, on dialysis , Saturday, Saturday through a dialysis catheter, type 2 diabetes, history of gastric ulcer, hyperten cony, hyperlipidemia, cataract surgery, peritoneal dialysis catheter placement and removal, colonosco py, dialysis catheter insertion. FAMILY HISTORY: Negative for renal disease or dialysis. SOCIAL HISTORY: Never smoked. No major alcohol. He is a . He lives alone. His son lives [facility] and he frequently checks on his father. REVIEW OF SYSTEMS: Unable to obtain due to his cognitive status. PHYSICAL EXAMINATION: GENERAL: Elderly white male who appears to be awake and alert, but is quite confused and was not abl e to give me any meaningful history of the patient. He did not even know where he gets his dialysis. VITAL SIGNS: Blood pressure is 153/70, pulse rate 84, temperature 36.5 degrees Celsius, 94% on room air. HEENT: Mucous membranes are moist. NECK: Supple. No jugular venous distention. CHEST: Bilaterally clear to auscultation. CARDIOVASCULAR: S1 and S2, regular. ABDOMEN: Soft, nontender. EXTREMITIES: Show no edema. SKIN: Shows no rashes. LABORATORY TEST: Shows anaplasmosis noted on the peripheral smear, which is new. BUN is 81, creatin ine is 5.89, potassium was quite low at 2.7 yesterday and 3.4 this morning, sodium 133. Albumin is v danita low at 1.8. WBC count 10.5, hemoglobin 9.9, platelet count 155, which is higher than a few days ago. ASSESSMENT AND PLAN: A 75-year-old male with end-stage renal disease, on hemodialysis Saturday, , Saturday as well as multiple other medical problems, admitted with worsening confusion. At this t dylan, he has diagnosis of atrial fibrillation and is currently followed by cardiology, also has anapla smosis, which is a new diagnosis and is getting doxycycline. I have been consulted for dialysis vinh hartman. End-stage renal disease: He will get dialysis today 3.5 hours. We will try to take about 2 kilos of f. His potassium has been low because of diarrhea and poor appetite for the last few days. We will d o him on a 3K bath. He is already on a heparin drip for atrial fibrillation, so we will not be givin g him any heparin with dialysis. Thank you very much for the consult. Job ID: [id number]
[2021-01-06 15:07] LABS: Partial Thromboplastin Ratio 2.9
[2021-01-06 15:18] LABS: Partial Thromboplastin Time 77.4 Seconds (21.0-31.0)
--- NOTE | 2021-01-06 20:54 | Hospitalist Progress Note ---
Date of Service January 06, 2021 Assessment & Plan (1) Acute UTI: (2) Weakness: (3) Fall: Plan: Patient is 75-year-old male with PMH HTN, HLD, ESRD on HD on sat, sat, sat, diet-controlled DM II, depression, anxiety presented to ER with complaint of confusion, generalized weakness, chills, sweats Patient seen in ER 01/02/2021 and peripheral smear: Rare intracytoplasmic inclusions are seen which are consistent with anaplasmosis infection. There is no evidence of myelodysplasia. Patient was started on doxycycline Generalized weakness possible related to acute illness (UTI and Anaplasmosis) Urine cx grew gram negative bacilli-Klebsiella pneumonia On IV rocephin, will transition to p.o. antibiotics once mental status improved Blood cx no growth Will follow urine sensitivity Continue PT/OT and fall precaution Skin tear right elbow Right elbow x-ray: 1. No definite acute fracture or joint effusion of the right elbow. 2. 6 mm calcification which projects posterior to the olecranon. This is indeterminate although could be related to the triceps and could be correlated with clinical evidence for triceps injury. No decrease range of motion currently Consult wound care nurse Will add triple abx (4) Anaplasmosis: Plan: CXR: Mild pulmonary edema, trace bilateral pleural effusions CT head: No acute intracranial abnormality Continue doxycycline (5) Metabolic encephalopathy: Plan: Mostly due to acute illness (anaplasmosis and UTI) CT head showed no acute intracranial abnormality Urine cx grew Klebsiella pneumonia Continue monitor closely (6) Atrial fibrillation: Plan: EKG showed Atrial fibrillation on admission with rate control [id number]: 4 Continue IV heparin during hospital course Cardiology on board Does not seem to be good candidate for intermediate designer anticoagulant due to fall risks and confusion Will defer anticoagulant decision to Cardilogy Continue carvedilol 6.25mg BID (7) Elevated troponin: Plan: Troponin: 0.09. Denies CP. EKG +afib Possible elevated secondary to atrial fibrillation Trop trending down Echo showed no LV wall motion abnormality with EF 55-60% (8) Hyponatremia: Plan: corrected sodium of 133 for glucose of 266. Baseline sodium~132 Monitor BMP (9) CKD (chronic kidney disease) stage 5, GFR less than 15 ml/min: Plan: HD on Saturday schedule Nephrology on board He had HD done today (10) Diabetes mellitus, type II: Plan: Most recent Hba1c 8.5 Diet controlled at home Random glucose:266 Basal bolus insulin per protocol Continue monitor BS (11) HTN (hypertension): Plan: Reports patient had low BP and dizziness at dialysis and was tapered off hydralazine. Son reports his carvedilol was decreased from 25 mg to 6.25 mg twice daily. Continue carvedilol DVT Prophylaxis -On IV Heparin Full Code as per discussion with pt and pt's son, SADE Follows with Dr Fiona Novoa for routine care Admission and Anticipated Discharge Date Admission Date: January 04, 2021 Subjective Pt was seen and examined for follow up of confusion and weakness Lying in bed confused with no acute distress He was playing with his block putting them together He denies any complaint Review of Systems Review of Systems: All systems reviewed & are unremarkable except as noted in Subjective Physical Exam Physical Exam: General- No acute distress, confused Head- atraumatic Eyes- PERRL, EOMI, ENT- oropharynx clear Neck- supple, no JVD Lungs- +decrease hearing function Heart- irregular rhythm; no murmur Abdomen- normal bowel sounds, soft, nontender Extremities- no calf tenderness Neuro- alert, PERRL, EOMI; no facial palsy; no dysarthria Skin- warm & dry, right elbow skin tear Results & Data Results & Data ([facility]) Vital Signs (Past 12 Hours) Vital Signs Temp Pulse Pulse Pulse Resp BP BP 01/06/21 19:00 36.9 C 78 19 165/78 H 01/06/21 15:59 36.8 C 93 H 16 171/64 H 01/06/21 15:25 36.3 C L 76 144/72 H 01/06/21 15:00 74 120/94 01/06/21 14:40 81 129/77 01/06/21 14:20 83 159/58 H 01/06/21 14:00 77 146/78 H 01/06/21 13:40 78 139/64 01/06/21 13:20 60 127/70 01/06/21 13:00 89 144/66 H 01/06/21 12:40 71 132/54 L 01/06/21 12:20 84 157/75 H 01/06/21 12:00 84 153/70 H 01/06/21 11:47 75 152/76 H 01/06/21 11:40 36.5 C 71 01/06/21 11:24 36.5 C 75 18 148/69 H Pulse Ox 01/06/21 19:00 92 01/06/21 15:59 92 01/06/21 15:25 01/06/21 15:00 01/06/21 14:40 01/06/21 14:20 01/06/21 14:00 01/06/21 13:40 01/06/21 13:20 01/06/21 13:00 01/06/21 12:40 01/06/21 12:20 01/06/21 12:00 01/06/21 11:47 01/06/21 11:40 01/06/21 11:24 94 (1) Diabetes mellitus, type II Diabetes mellitus complication status: without complication Diabetes mellitus correction insulin use: unspecified correction insulin use status Qualified Code(s): E11.9 - Type 2 diabetes mellitus without complications
[2021-01-06 21:43] LABS: Partial Thromboplastin Ratio 2.9
[2021-01-06 22:00] LABS: Partial Thromboplastin Time 77.1 Seconds (21.0-31.0)
[2021-01-06] MEDS: HEPARIN SODIUM/DEXTROSE 25,000 UNITS/500 ML BAG IV SCH (22:03)
[2021-01-06] MEDS: cefTRIAXone SODIUM 1,000 MG in DEXTROSE 5% 50 ML IV SCH (22:48)
[2021-01-06] MEDS ORDERED: NEOMYCIN/POLYMYX/BACITR OINT 15 GM TUBE EXT PRN (22:53)
[2021-01-07 04:59] LABS: Partial Thromboplastin Ratio 2.8
[2021-01-07 05:07] LABS: BUN Creatinine Ratio 9.4 (10-20); Calcium 7.8 mg/dl (8.5-10.1); Creatinine Clr Calc Pharmacy 14.4 ml/min; Est GFR (African American) 16.8 ml/min; Est GFR (Non-African American) 14.5 ml/min; Potassium 3.3 mmol/L (3.5-5.1)
[2021-01-07 05:08] LABS: Partial Thromboplastin Time 73.3 Seconds (21.0-31.0)
[2021-01-07] MEDS: INSULIN GLARGINE SOLOSTAR 100 UNITS/ML 3 ML PEN SC SCH ×2 (10:48→20:52)
[2021-01-07] MEDS: INSULIN ASPART 100 UNITS/ML 3 ML PEN SC SCH ×4 (10:49→20:51)
[2021-01-07] MEDS: HEPARIN SODIUM/DEXTROSE 25,000 UNITS/500 ML BAG IV SCH ×2 (10:50→20:00)
[2021-01-07] MEDS: CYANOCOBALAMIN 500 MCG TABLET (VITAMIN B-12) PO SCH (11:00)
[2021-01-07] MEDS: carvediloL 6.25 MG TAB PO SCH ×2 (11:00→20:03)
[2021-01-07] MEDS: CHOLECALCIFEROL 1,000 UNITS 25 MCG TAB PO SCH (11:01)
[2021-01-07] MEDS: ASPIRIN 81 MG ECTAB PO SCH (11:01)
[2021-01-07] MEDS: FAMOTIDINE 20 MG TAB PO SCH (11:02)
[2021-01-07] MEDS: FUROSEMIDE 40 MG TAB PO SCH (11:02)
[2021-01-07] MEDS: DOXYCYCLINE HYCLATE 100 MG in DEXTROSE 5% 100 ML IV SCH ×2 (11:36→20:50)
[2021-01-07 12:07] LABS: Partial Thromboplastin Ratio 1.9
[2021-01-07 12:17] LABS: Partial Thromboplastin Time 50.1 Seconds (21.0-31.0)
--- NOTE | 2021-01-07 13:32 | Cardiology Progress Note ---
Date of Service January 07, 2021 Assessment & Plan (1) Atrial fibrillation: (2) Acute alteration in mental status: (3) Acute UTI: (4) Elevated troponin: (5) Fall: (6) Thrombocytopenia: (7) Upper GI bleed: (8) Ambulatory dysfunction: (9) Diabetes mellitus, type II: (10) HTN (hypertension): (11) Hyperlipidemia: (12) Anemia: Plan: The patient is currently in rate controlled atrial fibrillation and is started on a heparin drip. At this point I am not quite sure what to make of long-term anticoagulation candidacy given his confusion. Rates are currently controlled and should be continued on his current dose of carvedilol. Decision on long-term anticoagulation will be made once the patient's mental status returns to baseline. The primary team will discuss anticoagulation candidacy with the patient's family today. Can be started on p.o. warfarin wit hout bridging with subcutaneous Lovenox. Not a DOAC candidate given renal failure. Admission and Anticipated Discharge Date Admission Date: January 04, 2021 Subjective Patient seen and examined, chart reviewed and case discussed with primary team. Patient remains significantly confused but no complaints reported. Telemetry reviewed: Atrial fibrillation rate controlled Review of Systems Review of Systems: Unobtainable due to cognitive status Physical Exam Physical Exam: General: Awake, alert but very confused.. No acute distress. HEENT: Normocephalic, atraumatic. Pupils equal, round and reactive to light and accommodation. Extraocular muscles are intact. Anicteric sclera. Moist mucous membranes. Neck: No JVD. No bruit. Cardiovascular: irregularly irregular, unable to appreciate murmur, rub or gallop. Pulmonary: Clear to auscultation bilaterally. No rales, rhonchi, or wheezing. Abdomen: Bowel sounds x 4, soft. No rebound, guarding or tenderness. No organomegaly. Extremities: No clubbing, cyanosis or edema. +2 pedal pulses bilaterally. Skin: Warm and dry. Results & Data ([facility]) Vital Signs (Past 12 Hours) Vital Signs Temp Pulse Pulse Resp BP Pulse Ox 01/07/21 11:48 36.0 C L 79 18 152/72 H 97 01/07/21 08:04 37.0 C 79 18 148/78 H 91 01/07/21 04:00 36.3 C L 65 18 164/61 H 95 (1) Diabetes mellitus, type II Diabetes mellitus complication status: without complication Diabetes mellitus long term care administrator insulin use: unspecified long term care administrator insulin use status Qualified Code(s): E11.9 - Type 2 diabetes mellitus without complications (2) Anemia Anemia type: unspecified type Qualified Code(s): D64.9 - Anemia, unspecified
--- NOTE | 2021-01-07 17:26 | Hospitalist Progress Note ---
Date of Service January 07, 2021 Assessment & Plan (1) Acute UTI: (2) Weakness: (3) Fall: Plan: Patient is 75-year-old male with PMH HTN, HLD, ESRD on HD on sat, sat, sat, diet-controlled DM II, depression, anxiety presented to ER with complaint of confusion, generalized weakness, chills, sweats Patient seen in ER 01/02/2021 and peripheral smear: Rare intracytoplasmic inclusions are seen which are consistent with anaplasmosis infection. There is no evidence of myelodysplasia. Patient was started on doxycycline Generalized weakness possible related to acute illness (UTI and Anaplasmosis) Urine cx grew gram negative bacilli-Klebsiella pneumonia On IV rocephin, will transition to p.o. antibiotics once mental status improved Blood cx no growth Continue PT/OT and fall precaution PT recommended 24hr supervision, SNF or rehab Daughter said that she just moved in with dad to live with him She said that someone will be with dad to watch over him case management will arrange for home health services Skin tear right elbow Right elbow x-ray: 1. No definite acute fracture or joint effusion of the right elbow. 2. 6 mm calcification which projects posterior to the olecranon. This is indeterminate although could be related to the triceps and could be correlated with clinical evidence for triceps injury. No decrease range of motion currently Consult wound care nurse Continue tripple ointment abx (4) Anaplasmosis: Plan: CXR: Mild pulmonary edema, trace bilateral pleural effusions CT head: No acute intracranial abnormality Continue doxycycline (5) Metabolic encephalopathy: Plan: Mostly due to acute illness (anaplasmosis and UTI) CT head showed no acute intracranial abnormality Urine cx grew Klebsiella pneumonia Continue monitor closely (6) Atrial fibrillation: Plan: EKG showed Atrial fibrillation on admission with rate control [id number]: 4 Continue IV heparin during hospital course Cardiology on board Does not seem to be good candidate for nursing home anticoagulant due to fall risks and confusion Continue carvedilol 6.25mg BID Case discussed with cardiology that recommended anticoagulant with Coumadin 5mg Can be started on p.o. warfarin without bridging with subcutaneous Lovenox on discharge Anticoagulant therapy discussed with daughter and agreed to continue anticoagulant at discharge Not a DOAC candidate given renal failure. She understands the complication by starting on Coumadin such as bleeding (Intracranial hemorrhage, hematuria, GI bleed and even ) Will need to follow up with the coumadin clinic (7) Elevated troponin: Plan: Troponin: 0.09. Denies CP. EKG +afib Possible elevated secondary to atrial fibrillation Trop trending down Echo showed no LV wall motion abnormality with EF 55-60% (8) Hyponatremia: Plan: corrected sodium of 133 for glucose of 266. Baseline sodium~132 Monitor BMP (9) CKD (chronic kidney disease) stage 5, GFR less than 15 ml/min: Plan: HD on Saturday schedule Nephrology on board Next HD schedule on Saturday (10) Diabetes mellitus, type II: Plan: Most recent Hba1c 8.5 Diet controlled at home Random glucose:266 Basal bolus insulin per protocol Continue monitor BS (11) HTN (hypertension): Plan: Reports patient had low BP and dizziness at dialysis and was tapered off hy dralazine. Son reports his carvedilol was decreased from 25 mg to 6.25 mg twice daily. 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 Review of Systems Review of Systems: All systems reviewed & are unremarkable except as noted in Subjective Physical Exam Physical Exam: General- No acute distress, confused Head- atraumatic Eyes- PERRL, EOMI, ENT- oropharynx clear Neck- supple, no JVD Lungs- +decrease hearing function Heart- irregular rhythm; no murmur Abdomen- normal bowel sounds, soft, nontender Extremities- no calf tenderness Neuro- alert, PERRL, EOMI; no facial palsy; no dysarthria Skin- warm & dry, right elbow skin tear Results & Data Results & Data ([facility]) Vital Signs (Past 12 Hours) Vital Signs Temp Pulse Resp BP Pulse Ox 01/07/21 15:37 36.8 C 73 18 149/69 H 96 01/07/21 11:48 36.0 C L 79 18 152/72 H 97 01/07/21 08:04 37.0 C 79 18 148/78 H 91 (1) Diabetes mellitus, type II Diabetes mellitus complication status: without complication Diabetes mellitus technician terminal and repeater insulin use: unspecified nursing home insulin use status Qualified Code(s): E11.9 - Type 2 diabetes mellitus without complications
[2021-01-07 18:40] LABS: INR 1.2 (0.9-1.1); Prothrombin Time 11.6 Seconds (9.0-12.0)
[2021-01-07] MEDS ORDERED: WARFARIN SOD 5 MG TAB PO ONE (19:00)
[2021-01-07] MEDS: cefTRIAXone SODIUM 1,000 MG in DEXTROSE 5% 50 ML IV SCH (20:02)
[2021-01-08 06:34] LABS: Basophils # (auto) 0.01 K/uL (0-0.2); Basophils % (auto) 0.2 %; Eosinophils # (auto) 0.11 K/uL (0-0.5); Eosinophils % (auto) 1.7 %; Hematocrit (blood only) 25.5 % (42-52); Hemoglobin 8.5 g/dL (14.0-18.0); Immature Granulocytes % (auto) 1.6 %; Lymphocytes # (auto) 1.93 K/uL (1.2-3.4); Mean Corpuscular Hemoglobin 30.1 pg (25-34); Mean Corpuscular Hgb Conc 33.3 g/dL (32-36); Mean Corpuscular Volume 90.4 fL (80-100); Mean Platelet Volume 11.2 fL (7.4-10.4); Monocytes # (auto) 0.98 K/uL (0.11-0.59); Monocytes % (auto) 15.2 %; Neutrophils # (auto) 3.31 K/uL (1.4-6.5); Neutrophils % (auto) 51.3 %; Platelet Count 205 K/uL (130-400); RDW Coefficient of Variation 15.6 % (11.5-14.5); RDW Standard Deviation 51.5 fL (36.4-46.3); Red Blood Count 2.82 M/uL (4.7-6.1); White Blood Count 6.44 K/uL (4.8-10.8)
[2021-01-08 06:55] LABS: INR 1.1 (0.9-1.1); Partial Thromboplastin Ratio 2.2; Prothrombin Time 11.5 Seconds (9.0-12.0)
[2021-01-08 07:07] LABS: Partial Thromboplastin Time 57.9 Seconds (21.0-31.0)
[2021-01-08] MEDS: carvediloL 6.25 MG TAB PO SCH ×2 (08:29→20:30)
[2021-01-08] MEDS: CHOLECALCIFEROL 1,000 UNITS 25 MCG TAB PO SCH (08:30)
[2021-01-08] MEDS: ASPIRIN 81 MG ECTAB PO SCH (08:30)
[2021-01-08] MEDS: CYANOCOBALAMIN 500 MCG TABLET (VITAMIN B-12) PO SCH (08:30)
[2021-01-08] MEDS: INSULIN ASPART 100 UNITS/ML 3 ML PEN SC SCH ×4 (08:33→20:31)
[2021-01-08] MEDS: INSULIN GLARGINE SOLOSTAR 100 UNITS/ML 3 ML PEN SC SCH ×2 (08:33→20:30)
[2021-01-08] MEDS: DOXYCYCLINE HYCLATE 100 MG in DEXTROSE 5% 100 ML IV SCH ×2 (09:06→20:29)
--- NOTE | 2021-01-08 11:19 | Cardiology Progress Note ---
Date of Service January 08, 2021 Assessment & Plan (1) Atrial fibrillation: (2) Acute alteration in mental status: (3) Acute UTI: (4) Elevated troponin: (5) Fall: (6) Thrombocytopenia: (7) Upper GI bleed: (8) Ambulatory dysfunction: (9) Diabetes mellitus, type II: (10) HTN (hypertension): (11) Hyperlipidemia: (12) Anemia: Plan: The patient is currently in rate controlled atrial fibrillation and is started on a heparin drip. At this point I am not quite sure what to make of long-term anticoagulation candidacy given his confusion. Rates are currently controlled and should be continued on his current dose of carvedilol. Dr. More discussed anticoagulation with the patient's sister and she would like to be started on Coumadin. Can be started on p.o. warfarin without bridging with subcutaneous Lovenox. Not a DOAC candidate given renal failure. Okay to discharge to home or off telemetry from a cardiac standpoint. Admission and Anticipated Discharge Date Admission Date: January 04, 2021 Subjective Patient seen and examined, chart reviewed. Less confused today and denies any cardiac complaints of chest pain, shortness of breath, palpitations, lightheadedness, dizziness or syncope. Telemetry reviewed: Atrial fibrillation, rate controlled with underlying left bundle branch block pattern Review of Systems Review of Systems: All systems reviewed & are unremarkable except as noted in HPI & below Physical Exam Physical Exam: General: Awake, alert but very confused.. No acute distress. HEENT: Normocephalic, atraumatic. Pupils equal, round and reactive to light and accommodation. Extraocular muscles are intact. Anicteric sclera. Moist mucous membranes. Neck: No JVD. No bruit. Cardiovascular: irregularly irregular, unable to appreciate murmur, rub or gallop. Pulmonary: Clear to auscultation bilaterally. No rales, rhonchi, or wheezing. Abdomen: Bowel sounds x 4, soft. No rebound, guarding or tenderness. No organomegaly. Extremities: No clubbing, cyanosis or edema. +2 pedal pulses bilaterally. Skin: Warm and dry. Results & Data ([facility]) Vital Signs (Past 12 Hours) Vital Signs Temp Pulse Pulse Resp BP Pulse Ox 01/08/21 06:42 36.7 C 67 18 155/62 H 10/24/21 04:00 36.6 C 68 18 164/82 H 95 (1) Diabetes mellitus, type II Diabetes mellitus complication status: without complication Diabetes mellitus usp insulin use: unspecified usp insulin use status Qualified Code(s): E11.9 - Type 2 diabetes mellitus without complications (2) Anemia Anemia type: unspecified type Qualified Code(s): D64.9 - Anemia, unspecified
[2021-01-08] MEDS: WARFARIN SOD 5 MG TAB PO SCH (17:40)
[2021-01-08] MEDS: HEPARIN SODIUM/DEXTROSE 25,000 UNITS/500 ML BAG IV SCH (19:42)
[2021-01-08 20:14] LABS: Hematocrit (blood only) 25.4 % (42-52); Hemoglobin 8.4 g/dL (14.0-18.0)
[2021-01-08] MEDS: cefTRIAXone SODIUM 1,000 MG in DEXTROSE 5% 50 ML IV SCH (20:29)
--- NOTE | 2021-01-08 23:25 | Hospitalist Progress Note ---
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 There is no evidence of myelodysplasia. Patient was started on doxycycline Generalized weakness possible related to acute illness (UTI and Anaplasmosis) Urine cx grew gram negative bacilli-Klebsiella pneumonia On IV rocephin, will transition to p.o. antibiotics once mental status improved Blood cx no growth Continue PT/OT and fall precaution PT recommended 24hr supervision, SNF or rehab Daughter said that she just moved in with dad to live with him She said that someone will be with dad to watch over him case management will arrange for home health services Skin tear right elbow Right elbow x-ray: 1. No definite acute fracture or joint effusion of the right elbow. 2. 6 mm calcification which projects posterior to the olecranon. This is indeterminate although could be related to the triceps and could be correlated with clinical evidence for triceps injury. No decrease range of motion currently Consult wound care nurse Continue tripple ointment abx (4) Anaplasmosis: Plan: CXR: Mild pulmonary edema, trace bilateral pleural effusions CT head: No acute intracranial abnormality Continue doxycycline (5) Metabolic encephalopathy: Plan: Mostly due to acute illness (anaplasmosis and UTI) CT head showed no acute intracranial abnormality Urine cx grew Klebsiella pneumonia Continue monitor closely (6) Atrial fibrillation: Plan: EKG showed Atrial fibrillation on admission with rate control [id number]: 4 Continue IV heparin during hospital course Cardiology on board Does not seem to be good candidate for snf anticoagulant due to fall risks and confusion Continue carvedilol 6.25mg BID Case discussed with cardiology that recommended anticoagulant with Coumadin 5mg Can be started on p.o. warfarin without bridging with subcutaneous Lovenox on discharge Anticoagulant therapy discussed with daughter and agreed to continue anticoagulant at discharge Not a DOAC candidate given renal failure. She understands the complication by starting on Coumadin such as bleeding (Intracranial hemorrhage, hematuria, GI bleed and even ) Will need to follow up with the coumadin clinic (7) Elevated troponin: Plan: Troponin: 0.09. Denies CP. EKG +afib Possible elevated secondary to atrial fibrillation Trop trending down Echo showed no LV wall motion abnormality with EF 55-60% (8) Hyponatremia: Plan: corrected sodium of 133 for glucose of 266. Baseline sodium~132 Monitor BMP (9) CKD (chronic kidney disease) stage 5, GFR less than 15 ml/min: Plan: HD on Saturday schedule Nephrology on board Next HD schedule on Saturday (10) Diabetes mellitus, type II: Plan: Most recent Hba1c 8.5 Diet controlled at home Random glucose:266 Basal bolus insulin per protocol Continue monitor BS (11) HTN (hypertension): Plan: Reports patient had low BP and dizziness at dialysis and was tapered off hy dralazine. Son reports his carvedilol was decreased from 25 mg to 6.25 mg twice daily. Continue carvedilol DVT Prophylaxis -On IV Heparin Full Code Disposition Follows with Dr Fiona Novoa for routine care Possible discharge with home health services in a.m. Admission and Anticipated Discharge Date Admission Date: January 04, 2021 Subjective Pt was seen and examined for follow up of confusion and weakness Lying in bed with no acute distress Patient is more awake and alert today His mental status is back to his baseline He was able to have normal conversation Spoke to daughter yesterday and she agreed to start on Coumadin Patient denies any chest pain, palpitation, dizziness, and shortness of breath. Review of Systems Review of Systems: All systems reviewed & are unremarkable except as noted in Subjective Physical Exam Physical Exam: General- No acute distress, confused Head- atraumatic Eyes- PERRL, EOMI, ENT- oropharynx clear Neck- supple, no JVD Lungs- +decrease hearing function Heart- irregular rhythm; no murmur Abdomen- normal bowel sounds, soft, nontender Extremities- no calf tenderness Neuro- alert, PERRL, EOMI; no facial palsy; no dysarthria Skin- warm & dry, right elbow skin tear Results & Data Results & Data ([facility]) Vital Signs (Past 12 Hours) Vital Signs Temp Pulse Resp BP Pulse Ox 01/08/21 23:04 36.8 C 70 18 173/67 H 96 01/08/21 19:05 36.6 C 62 18 165/64 H 96 01/08/21 16:26 36.4 C L 72 18 158/77 H 95 (1) Diabetes mellitus, type II Diabetes mellitus complication status: without complication Diabetes mellitus intermodal customer service insulin use: unspecified intermodal customer service insulin use status Qualified Code(s): E11.9 - Type 2 diabetes mellitus without complications
[2021-01-09 06:11] LABS: Hematocrit (blood only) 24.5 % (42-52); Hemoglobin 8.5 g/dL (14.0-18.0); Mean Corpuscular Hgb Conc 34.7 g/dL (32-36); Mean Corpuscular Volume 89.4 fL (80-100); Mean Platelet Volume 9.9 fL (7.4-10.4); Platelet Count 214 K/uL (130-400); RDW Coefficient of Variation 15.8 % (11.5-14.5); RDW Standard Deviation 50.3 fL (36.4-46.3); Red Blood Count 2.74 M/uL (4.7-6.1); White Blood Count 5.63 K/uL (4.8-10.8)
[2021-01-09 06:30] LABS: INR 1.2 (0.9-1.1); Partial Thromboplastin Ratio 2.2
[2021-01-09 06:39] LABS: Partial Thromboplastin Time 58.4 Seconds (21.0-31.0)
[2021-01-09 07:04] LABS: Calcium 8.1 mg/dl (8.5-10.1); Est GFR (African American) 9.5 ml/min; Est GFR (Non-African American) 8.2 ml/min; Potassium 3.5 mmol/L (3.5-5.1)
[2021-01-09] MEDS: CHOLECALCIFEROL 1,000 UNITS 25 MCG TAB PO SCH (09:04)
[2021-01-09] MEDS: ASPIRIN 81 MG ECTAB PO SCH (09:04)
[2021-01-09] MEDS: CYANOCOBALAMIN 500 MCG TABLET (VITAMIN B-12) PO SCH (09:05)
[2021-01-09] MEDS: FUROSEMIDE 40 MG TAB PO SCH (09:05)
[2021-01-09] MEDS: DOXYCYCLINE HYCLATE 100 MG in DEXTROSE 5% 100 ML IV SCH ×2 (09:05→21:41)
[2021-01-09] MEDS: carvediloL 6.25 MG TAB PO SCH ×2 (09:05→21:44)
[2021-01-09] MEDS: FAMOTIDINE 20 MG TAB PO SCH (09:06)
[2021-01-09] MEDS: INSULIN GLARGINE SOLOSTAR 100 UNITS/ML 3 ML PEN SC SCH ×2 (09:07→21:47)
[2021-01-09] MEDS: INSULIN ASPART 100 UNITS/ML 3 ML PEN SC SCH ×4 (09:10→21:39)
--- NOTE | 2021-01-09 09:50 | Cardiology Progress Note ---
Date of Service January 09, 2021 Assessment & Plan (1) Atrial fibrillation: (2) Acute alteration in mental status: (3) Acute UTI: (4) Elevated troponin: (5) Fall: (6) Thrombocytopenia: (7) Upper GI bleed: (8) Ambulatory dysfunction: (9) Diabetes mellitus, type II: (10) HTN (hypertension): (11) Hyperlipidemia: (12) Anemia: Plan: The patient continues to be in a rate controlled atrial fibrillation. Currently on IV heparin. To receive dialysis today. Otherwise stable and would continue current medications. Admission and Anticipated Discharge Date Admission Date: January 04, 2021 Subjective The patient is alert today and answering questions. No acute distress. Review of Systems Review of Systems: Review of Systems: See HPI for pertinent positives. All other 10 point review of systems are negative. Physical Exam Physical Exam: General: no acute distress and stated age Head: normocephalic, no masses, lesions, tenderness or abnormalities Eyes: conjunctiva are pink and non-injected, sclera clear Neck: supple, no adenopathy, no bruits, normal jugular venous pulse, no hepatojugular reflux Chest: normal shape and normal respiratory effort Lungs: clear to auscultation and percussion Cardiac Exam: - regular rate & rhythm, no murmurs gallops or rubs - normal S1, normal S2 Pulses: 2(+) throughout Abdomen: abdomen soft, non-tender, no abnormal masses and no hepatosplenomegaly Musculoskeletal: no gait disturbance, no joint inflammation, no deforming arthritis Extremities: no edema and no cyanosis Neuro: grossly normal exam Results & Data ([facility]) Vital Signs (Past 12 Hours) Vital Signs Temp Pulse Resp BP Pulse Ox 01/09/21 07:11 36.5 C 71 18 152/59 H 94 01/09/21 02:52 36.6 C 70 16 153/63 H 96 01/08/21 23:04 36.8 C 70 18 173/67 H 96 Laboratory Results Laboratory Results - last 24 hr 01/08/21 01/08/21 01/08/21 11:53 16:41 19:20 WBC RBC Hgb 8.4 L Hct 25.4 L MCV MCH MCHC RDW Std Deviation RDW Coeff of Juma Plt Count MPV PT INR APTT PTT Ratio Sodium Potassium Chloride Carbon Dioxide Anion Gap BUN Creatinine Est Cr Clr Drug Dosing Est GFR ( Amer) Est GFR (Non-Af Amer) BUN/Creatinine Ratio Glucose POC Glucose 132 H 201 H Calcium 01/08/21 01/09/21 01/09/21 19:58 05:54 05:54 WBC 5.63 RBC 2.74 L Hgb 8.5 L Hct 24.5 L MCV 89.4 MCH 31.0 MCHC 34.7 RDW Std Deviation 50.3 H RDW Coeff of Juma 15.8 H Plt Count 214 MPV 9.9 PT 12.0 INR 1.2 H APTT 58.4 H* PTT Ratio 2.2 Sodium Potassium Chloride Carbon Dioxide Anion Gap BUN Creatinine Est Cr Clr Drug Dosing Est GFR ( Amer) Est GFR (Non-Af Amer) BUN/Creatinine Ratio Glucose POC Glucose 85 Calcium 01/09/21 01/09/21 05:54 07:34 WBC RBC Hgb Hct MCV MCH MCHC RDW Std Deviation RDW Coeff of Juma Plt Count MPV PT INR APTT PTT Ratio Sodium 135 L Potassium 3.5 Chloride 97 L Carbon Dioxide 26 Anion Gap 12.0 H BUN 67 H Creatinine 6.09 H* Est Cr Clr Drug Dosing 9.0 Est GFR ( Amer) 9.5 Est GFR (Non-Af Amer) 8.2 BUN/Creatinine Ratio 11.0 Glucose 104 H POC Glucose 107 H Calcium 8.1 L Medications Administered Current Inpatient Medications Acetaminophen (Acetaminophen 325 Mg Tab) 650 mg PO Q4H PRN PRN Reason: Pain or Fever Stop: 02/03/21 20:01 Aspirin (Aspirin 81 Mg Ectab) [facility] [place] Stop: 02/04/21 08:59 Last Admin: 01/09/21 09:04 Dose: 81 mg Documented by: Carvedilol (Carvedilol 6.25 Mg Tab) 6.25 mg PO BID [facility] Stop: 02/03/21 20:59 Last Admin: 01/09/21 09:05 Dose: 6.25 mg Documented by: Cyanocobalamin (Cyanocobalamin 500 Mcg Tablet (Vitamin B-12)) 1,000 mcg PO QAM [facility] Stop: 02/04/21 08:59 Last Admin: 01/09/21 09:05 Dose: 1,000 mcg Documented by: Dextrose (Dextrose 50% 50 Ml Syringe) 25 - 50 ml IV UD PRN; Protocol PRN Reason: Hypoglycemia Protocol Stop: 02/03/21 20:01 Famotidine (Famotidine 20 Mg Tab) 20 mg PO Q48H [facility] Stop: 02/04/21 08:59 Last Admin: 01/09/21 09:06 Dose: 20 mg Documented by: Furosemide (Furosemide 40 Mg Tab) 40 mg PO Q48H [facility] Stop: 02/04/21 08:59 Last Admin: 01/09/21 09:05 Dose: 40 mg Documented by: Glucagon (Glucagon For Inj 1 Mg Vial) 1 mg SQ UD PRN; Protocol PRN Reason: Hypoglycemia Protocol Stop: 02/03/21 20:01 Glucose (Glucose 10 Tabs/Tube) 4 - 8 tabs PO UD PRN; Protocol PRN Reason: Hypoglycemia Protocol Stop: 02/03/21 20:01 Glucose (Glucose 40% Gel 15 Gm Tube) 15 - 30 gm PO UD PRN; Protocol PRN Reason: Hypoglycemia Protocol Stop: 02/03/21 20:01 Doxycycline Hyclate 100 mg/ (Dextrose) 110 mls @ 50 mls/hr IV Q12H [facility] Stop: 01/18/21 20:01 Last Admin: 01/09/21 09:05 Dose: 50 mls/hr Documented by: Heparin Sodium/Dextrose (Heparin Sodium/Dextrose) 25,000 units in 500 mls @ 17 mls/hr IV .Q24H [facility]; Protocol Stop: 02/03/21 20:01 Last Admin: 01/08/21 19:42 Dose: 850 units/hr, 17 mls/hr Documented by: Ceftriaxone Sodium 1,000 mg/ (Dextrose) 50 mls @ 100 mls/hr IV Q24H [facility]; Protocol Stop: 01/09/21 21:59 Last Infusion: 01/08/21 21:05 Dose: Infused Documented by: Insulin Aspart (Insulin Aspart 100 Units/Ml 3 Ml Pen) 0 units SC ACHS [facility] Stop: 02/03/21 20:59 Last Admin: 01/09/21 09:10 Dose: 3 units Documented by: Insulin Glargine (Insulin Glargine Solostar 100 Units/Ml 3 Ml Pen) 0 - 10 units SC BID [facility] Stop: 02/03/21 20:59 Last Admin: 01/09/21 09:07 Dose: Not Given Documented by: Metoprolol Tartrate (Metoprolol Tartrate 1 Mg/Ml Vial) 5 mg IV Q6 PRN PRN Reason: Tachycardia Stop: 02/03/21 20:01 Miscellaneous (Carbohydrates For Hypoglycemia ) 15 - 30 gm PO UD PRN PRN Reason: Hypoglycemia Protocol Stop: 02/03/21 20:01 Neomycin/Polymyxin/Bacitracin (Neomycin/Polymyx/Bacitr Oint 15 Gm Tube) 1 appln EXT BID PRN PRN Reason: right elbow skin tear Stop: 02/05/21 22:52 Polyethylene Glycol (Polyethylene (Miralax) 17 Gm Pack) 17 gm PO DAILY PRN PRN Reason: Constipation Stop: 02/03/21 20:01 Vitamin D (Cholecalciferol 1,000 Units 25 Mcg Tab) 2,000 units PO QAM [facility] Stop: 02/04/21 08:59 Last Admin: 01/09/21 09:04 Dose: 2,000 units Documented by: Warfarin Sodium (Warfarin Sod 5 Mg Tab) 5 mg PO DAILY@1600 [facility] Stop: 02/07/21 15:59 Last Admin: 01/08/21 17:40 Dose: 5 mg Documented by: (1) Diabetes mellitus, type II Diabetes mellitus complication status: without complication Diabetes mellitus senior care insulin use: unspecified terminal clerk insulin use status Qualified Code(s): E11.9 - Type 2 diabetes mellitus without complications (2) Anemia Anemia type: unspecified type Qualified Code(s): D64.9 - Anemia, unspecified
[2021-01-09] MEDS ORDERED: SODIUM CHLORIDE 0.9% 1000ML 1,000 ML IV PRN (10:51)
[2021-01-09] MEDS ORDERED: IRON SUCROSE 100 MG in SYRINGE 0 ML IV SCH (11:30)
[2021-01-09] MEDS ORDERED: EPOETIN ALFA 10,000 UNITS/ML VIAL IV SCH (11:30)
--- NOTE | 2021-01-09 12:34 | Hospitalist Progress Note ---
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 There is no evidence of myelodysplasia. Patient was started on doxycycline Generalized weakness possible related to acute illness (UTI and Anaplasmosis) Urine cx grew gram negative bacilli-Klebsiella pneumonia On IV rocephin, will transition to p.o. antibiotics once mental status improved Blood cx no growth Continue PT/OT and fall precaution PT recommended 24hr supervision, SNF or rehab Daughter said that she just moved in with dad to live with him She said that someone will be with dad to watch over him case management will arrange for home health services back to his baseline. Clinically stable Skin tear right elbow Right elbow x-ray: 1. No definite acute fracture or joint effusion of the right elbow. 2. 6 mm calcification which projects posterior to the olecranon. This is indeterminate although could be related to the triceps and could be correlated with clinical evidence for triceps injury. No decrease range of motion currently Consult wound care nurse Continue tripple ointment abx (4) Anaplasmosis: Plan: CXR: Mild pulmonary edema, trace bilateral pleural effusions CT head: No acute intracranial abnormality Continue doxycycline (5) Metabolic encephalopathy: Plan: Mostly due to acute illness (anaplasmosis and UTI) CT head showed no acute intracranial abnormality Urine cx grew Klebsiella pneumonia Continue monitor closely resolved (6) Atrial fibrillation: Plan: EKG showed Atrial fibrillation on admission with rate control [id number]: 4 Continue IV heparin during hospital course Cardiology on board Does not seem to be good candidate for prison anticoagulant due to fall risks and confusion Continue carvedilol 6.25mg BID Case discussed with cardiology that recommended anticoagulant with Coumadin 5mg Can be started on p.o. warfarin without bridging with subcutaneous Lovenox on discharge Anticoagulant therapy discussed with daughter and agreed to continue anticoagulant at discharge Not a DOAC candidate given renal failure. She understands the complication by starting on Coumadin such as bleeding (Intracranial hemorrhage, hematuria, GI bleed and even ) Will need to follow up with the coumadin clinic (7) Elevated troponin: Plan: Troponin: 0.09. Denies CP. EKG +afib Possible elevated secondary to atrial fibrillation Trop trending down Echo showed no LV wall motion abnormality with EF 55-60% (8) Hyponatremia: Plan: corrected sodium of 133 for glucose of 266. Baseline sodium~132 Monitor BMP (9) CKD (chronic kidney disease) stage 5, GFR less than 15 ml/min: Plan: HD on Saturday schedule Nephrology on board Next HD schedule for today (10) Diabetes mellitus, type II: Plan: Most recent Hba1c 8.5 Diet controlled at home Random glucose:266 Basal bolus insulin per protocol Continue monitor BS (11) HTN (hypertension): Plan: Reports patient had low BP and dizziness at dialysis and was tapered off hydralazine. Son reports his carvedilol was decreased from 25 mg to 6.25 mg twice daily. Continue carvedilol DVT Prophylaxis On IV Heparin Full Code Disposition Follows with Dr Fiona Novao for routine care Possible discharge with home health services today after HD Admission and Anticipated Discharge Date Admission Date: January 04, 2021 Subjective Pt was seen and examined for follow up of confusion and weakness Sitting in chair with no acute distress His mental status is back to his baseline He was able to have normal conversation He walked in the hallway with therapy and did well Spoke to son ED at bed side and provided with update Patient denies any chest pain, palpitation, dizziness, and shortness of breath. Review of Systems Review of Systems: All systems reviewed & are unremarkable except as noted in Subjective Physical Exam Physical Exam: General- No acute distress, confused Head- atraumatic Eyes- PERRL, EOMI, ENT- oropharynx clear Neck- supple, no JVD Lungs- +decrease hearing function Heart- irregular rhythm; no murmur Abdomen- normal bowel sounds, soft, nontender Extremities- no calf tenderness Neuro- alert, PERRL, EOMI; no facial palsy; no dysarthria Skin- warm & dry, right elbow skin tear Results & Data Results & Data ([facility]) Vital Signs (Past 12 Hours) Vital Signs Temp Pulse Resp BP Pulse Ox 01/09/21 11:53 36.3 C L 67 18 141/68 H 98 01/09/21 07:11 36.5 C 71 18 152/59 H 94 01/09/21 02:52 36.6 C 70 16 153/63 H 96 (1) Diabetes mellitus, type II Diabetes mellitus complication status: without complication Diabetes mellitus rat exterminator insulin use: unspecified prison insulin use status Qualified Code(s): E11.9 - Type 2 diabetes mellitus without complications
--- NOTE | 2021-01-09 16:44 | Dialysis Progress Note ---
Date of Service January 09, 2021 Assessment & Plan (1) ESRD (end stage renal disease) on dialysis: Plan: MWF in center HD as OP >> tolerating HD today with SBP maintained and goal UF up to 1.5L. 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 setting were discussed and plan to move ahead w/ coumadin Admission and Anticipated Discharge Date Admission Date: January 04, 2021 Subjective seen on dialysis; no c/o sob, uncontrolled pain in chest muscckel or abdomen, no bleeding, no edema or confusion; ambulated today w/ hospitalist Review of Systems Review of Systems: All systems reviewed & are unremarkable except as noted in Subjective Physical Exam Constitutional: well developed and well nourished Eyes: EOM intact bilaterally ENMT: Ears: no external ear abnormality Nose: no external nose abnormality Mouth: + dry oral mucous membranes Neck: no nuchal rigidity Respiratory: normal respiratory effort Auscultation: + diminished lung sounds Gastrointestinal (Abdomen): Inspection/Auscultation: normal bowel sounds Percussion/Palpation: abdomen soft; abdomen nontender Musculoskeletal: Extremities: strength 5/5 throughout Skin: no rashes, warm and dry Neurologic: quintero, fluent speech, no tremor Psychiatric: Orientation: alert and oriented x 3 Insight: + limited insight Judgement: + limited judgement Results & Data ([facility]) Vital Signs (Past 12 Hours) Vital Signs Temp Pulse Pulse Pulse Resp BP BP 01/09/21 15:20 66 148/79 H 01/09/21 15:00 59 L 115/64 01/09/21 14:40 77 127/71 01/09/21 14:20 64 138/65 01/09/21 14:00 66 140/69 01/09/21 13:40 71 144/71 H 01/09/21 13:20 54 L 137/71 01/09/21 13:00 60 152/59 H 01/09/21 12:40 71 164/69 H 01/09/21 12:35 36.5 C 61 71 01/09/21 11:53 36.3 C L 67 18 141/68 H 01/09/21 07:11 36.5 C 71 18 152/59 H Pulse Ox 01/09/21 15:20 01/09/21 15:00 01/09/21 14:40 01/09/21 14:20 01/09/21 14:00 01/09/21 13:40 01/09/21 13:20 01/09/21 13:00 01/09/21 12:40 01/09/21 12:35 01/09/21 11:53 98 01/09/21 07:11 94 Laboratory Results 01/09/21 05:54 01/09/21 05:54 (1) Anemia Anemia type: unspecified type Qualified Code(s): D64.9 - Anemia, unspecified
[2021-01-09] MEDS: WARFARIN SOD 5 MG TAB PO SCH (17:21)
[2021-01-10] MEDS: HEPARIN SODIUM/DEXTROSE 25,000 UNITS/500 ML BAG IV SCH (01:14)
[2021-01-10 05:55] LABS: Basophils # (auto) 0.02 K/uL (0-0.2); Basophils % (auto) 0.4 %; Eosinophils # (auto) 0.11 K/uL (0-0.5); Eosinophils % (auto) 2.1 %; Hematocrit (blood only) 27.7 % (42-52); Hemoglobin 9.2 g/dL (14.0-18.0); Immature Granulocytes # (auto) 0.24 K/uL (0.00-0.02); Immature Granulocytes % (auto) 4.5 %; Lymphocytes % (auto) 32.2 %; Mean Corpuscular Hemoglobin 30.6 pg (25-34); Mean Corpuscular Hgb Conc 33.2 g/dL (32-36); Mean Platelet Volume 9.5 fL (7.4-10.4); Monocytes # (auto) 1.09 K/uL (0.11-0.59); Monocytes % (auto) 20.6 %; Neutrophils # (auto) 2.12 K/uL (1.4-6.5); Neutrophils % (auto) 40.2 %; Platelet Count 239 K/uL (130-400); RDW Coefficient of Variation 16.3 % (11.5-14.5); RDW Standard Deviation 52.1 fL (36.4-46.3); Red Blood Count 3.01 M/uL (4.7-6.1); White Blood Count 5.28 K/uL (4.8-10.8)
[2021-01-10 06:17] LABS: INR 1.4 (0.9-1.1); Partial Thromboplastin Ratio 2.5; Prothrombin Time 14.2 Seconds (9.0-12.0)
[2021-01-10 06:24] LABS: Calcium 8.4 mg/dl (8.5-10.1); Creatinine Clr Calc Pharmacy 14.9 ml/min; Est GFR (African American) 17.5 ml/min; Est GFR (Non-African American) 15.1 ml/min; Potassium 3.8 mmol/L (3.5-5.1)
[2021-01-10 06:25] LABS: Partial Thromboplastin Time 65.1 Seconds (21.0-31.0)
[2021-01-10] MEDS: carvediloL 6.25 MG TAB PO SCH ×2 (09:04→22:13)
[2021-01-10] MEDS: CYANOCOBALAMIN 500 MCG TABLET (VITAMIN B-12) PO SCH (09:04)
[2021-01-10] MEDS: ASPIRIN 81 MG ECTAB PO SCH (09:04)
[2021-01-10] MEDS: INSULIN ASPART 100 UNITS/ML 3 ML PEN SC SCH ×4 (09:04→22:16)
[2021-01-10] MEDS: INSULIN GLARGINE SOLOSTAR 100 UNITS/ML 3 ML PEN SC SCH ×2 (09:05→22:16)
[2021-01-10] MEDS: CHOLECALCIFEROL 1,000 UNITS 25 MCG TAB PO SCH (09:06)
--- NOTE | 2021-01-10 09:27 | Hospitalist Progress Note ---
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 There is no evidence of myelodysplasia. Patient was started on doxycycline Generalized weakness possible related to acute illness (UTI and Anaplasmosis) Urine cx grew gram negative bacilli-Klebsiella pneumonia On IV rocephin, will transition to p.o. antibiotics once mental status improved Blood cx no growth Continue PT/OT and fall precaution Daughter said that she just moved in with dad to live with him She said that someone will be with dad to watch over him case management will arrange for home health services Ambulating around the hallway with therapy back to his baseline Clinically stable Plan to discharge home today Skin tear right elbow Right elbow x-ray: 1. No definite acute fracture or joint effusion of the right elbow. 2. 6 mm calcification which projects posterior to the olecranon. This is indeterminate although could be related to the triceps and could be correlated with clinical evidence for triceps injury. No decrease range of motion currently Consult wound care nurse Received triple ointment abx (4) Anaplasmosis: Plan: CXR: Mild pulmonary edema, trace bilateral pleural effusions CT head: No acute intracranial abnormality Continue doxycycline (5) Metabolic encephalopathy: Plan: Mostly due to acute illness (anaplasmosis and UTI) CT head showed no acute intracranial abnormality Urine cx grew Klebsiella pneumonia Continue monitor closely resolved (6) Atrial fibrillation: Plan: EKG showed Atrial fibrillation on admission with rate control [id number]: 4 Continue IV heparin during hospital course Cardiology on board Does not seem to be good candidate for [facility] anticoagulant due to fall risks and confusion Continue carvedilol 6.25mg BID Case discussed with cardiology that recommended anticoagulant with Coumadin 5mg Can be started on p.o. warfarin without bridging with subcutaneous Lovenox on discharge Anticoagulant therapy discussed with daughter and agreed to continue anticoagulant at discharge Not a DOAC candidate given renal failure. She understands the complication by starting on Coumadin such as bleeding (Intracranial hemorrhage, hematuria, GI bleed and even ) Will need to follow up with the coumadin clinic Case discussed again with Cardio today about discontinued Aspirin while taking Coumadin Dr. Shukla would like pt to stay in the hospital until his INR at goal or near therapeutic Called son over the phone to let him know that pt will stay in the hospital until INR at goal Aspirin will be discontinued on discharge (7) Elevated troponin: Plan: Troponin: 0.09. Denies CP. EKG +afib Possible elevated secondary to atrial fibrillation Trop trending down Echo showed no LV wall motion abnormality with EF 55-60% (8) Hyponatremia: Plan: corrected sodium of 133 for glucose of 266. Baseline sodium~132 Monitor BMP (9) CKD (chronic kidney disease) stage 5, GFR less than 15 ml/min: Plan: HD on Saturday schedule Nephrology on board Next HD schedule for tomorrow (10) Diabetes mellitus, type II: Plan: Most recent Hba1c 8.5 Pt was not on any diabetes med before admission Will continue lifestyles changes for now and check BS daily Lantus and Novolog sliding scale during the hospital course Continue monitor BS closely and bring your BS log at your next appointment with your provider Will defer to PCP to start on diabetes medication if BS log not at goal (11) HTN (hypertension): Plan: Reports patient had low BP and dizziness at dialysis and was tapered off hydralazine. Son reports his carvedilol was decreased from 25 mg to 6.25 mg twice daily. Continue carvedilol DVT Prophylaxis On IV Heparin Full Code Disposition Follows with Dr Fiona Novoa for routine care Possible discharge with home health services Follow up with the coag clinic Admission and Anticipated Discharge Date Admission Date: January 04, 2021 Subjective Pt was seen and examined for follow up of confusion and weakness Lying in bed with no acute distress He said that he feels fine Patient denies any chest pain, palpitation, dizziness, and shortness of breath. Review of Systems Review of Systems: All systems reviewed & are unremarkable except as noted in Subjective Physical Exam Physical Exam: General- No acute distress, confused Head- atraumatic Eyes- PERRL, EOMI, ENT- oropharynx clear Neck- supple, no JVD Lungs- +decrease hearing function Heart- irregular rhythm; no murmur Abdomen- normal bowel sounds, soft, nontender Extremities- no calf tenderness Neuro- alert, PERRL, EOMI; no facial palsy; no dysarthria Skin- warm & dry, right elbow skin tear Results & Data Results & Data ([facility]) Vital Signs (Past 12 Hours) Vital Signs Temp Pulse Pulse Resp BP Pulse Ox 01/10/21 07:00 36.5 C 62 20 174/64 H 97 01/10/21 03:25 36.8 C 73 20 172/74 H 97 01/10/21 00:00 69 01/09/21 23:07 36.8 C 71 20 161/76 H 93 (1) Diabetes mellitus, type II Diabetes mellitus complication status: without complication 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
--- NOTE | 2021-01-10 09:56 | Cardiology Progress Note ---
Date of Service January 10, 2021 Assessment & Plan (1) Atrial fibrillation: (2) Acute alteration in mental status: (3) Acute UTI: (4) Elevated troponin: (5) Fall: (6) Thrombocytopenia: (7) Upper GI bleed: (8) Ambulatory dysfunction: (9) Diabetes mellitus, type II: (10) HTN (hypertension): (11) Hyperlipidemia: (12) Anemia: Plan: The patient continues in a rate controlled atrial fibrillation. I would continue current treatment. Need to consider before transitioning him home whether or not long-term anticoagulation would be in his interest. Admission and Anticipated Discharge Date Admission Date: January 04, 2021 Subjective The patient is resting comfortably. Review of Systems Review of Systems: Not obtainable Physical Exam Physical Exam: General: no acute distress and stated age Head: normocephalic, no masses, lesions, tenderness or abnormalities Eyes: conjunctiva are pink and non-injected, sclera clear Neck: supple, no adenopathy, no bruits, normal jugular venous pulse, no hepatojugular reflux Chest: normal shape and normal respiratory effort Lungs: clear to auscultation and percussion Cardiac Exam: - regular rate & rhythm, no murmurs gallops or rubs - normal S1, normal S2 Pulses: 2(+) throughout Abdomen: abdomen soft, non-tender, no abnormal masses and no hepatosplenomegaly Musculoskeletal: no gait disturbance, no joint inflammation, no deforming arthritis Extremities: no edema and no cyanosis Neuro: grossly normal exam Results & Data ([facility]) Vital Signs (Past 12 Hours) Vital Signs Temp Pulse Pulse Resp BP Pulse Ox 01/10/21 07:00 36.5 C 65 62 20 174/64 H 97 01/10/21 03:25 36.8 C 73 20 172/74 H 97 01/10/21 00:00 69 01/09/21 23:07 36.8 C 71 20 161/76 H 93 Laboratory Results Laboratory Results - last 24 hr 01/09/21 01/09/21 01/09/21 11:41 16:53 20:20 WBC RBC Hgb Hct MCV MCH MCHC RDW Std Deviation RDW Coeff of Juma Plt Count MPV Immature Gran % (Auto) Neut % (Auto) Lymph % (Auto) [place] % (Auto) Eos % (Auto) Baso % (Auto) Neut # (Auto) Lymph # (Auto) [place] # (Auto) Eos # (Auto) Baso # (Auto) Immature Gran # (Auto) PT INR APTT PTT Ratio Sodium Potassium Chloride Carbon Dioxide Anion Gap BUN Creatinine Est Cr Clr Drug Dosing Est GFR ( Amer) Est GFR (Non-Af Amer) BUN/Creatinine Ratio Glucose POC Glucose 237 H 108 H 111 H Calcium 01/10/21 01/10/21 01/10/21 05:46 05:46 05:46 WBC 5.28 RBC 3.01 L Hgb 9.2 L Hct 27.7 L MCV 92.0 MCH 30.6 MCHC 33.2 RDW Std Deviation 52.1 H RDW Coeff of Juma 16.3 H Plt Count 239 MPV 9.5 Immature Gran % (Auto) 4.5 Neut % (Auto) 40.2 Lymph % (Auto) 32.2 [place] % (Auto) 20.6 Eos % (Auto) 2.1 Baso % (Auto) 0.4 Neut # (Auto) 2.12 Lymph # (Auto) 1.70 [place] # (Auto) 1.09 H Eos # (Auto) 0.11 Baso # (Auto) 0.02 Immature Gran # (Auto) 0.24 H PT 14.2 H INR 1.4 H APTT 65.1 H* PTT Ratio 2.5 Sodium 136 Potassium 3.8 Chloride 101 Carbon Dioxide 27 Anion Gap 9.0 BUN 33 H D Creatinine 3.68 H D Est Cr Clr Drug Dosing 14.9 Est GFR ( Amer) 17.5 Est GFR (Non-Af Amer) 15.1 BUN/Creatinine Ratio 9.0 L Glucose 101 H POC Glucose Calcium 8.4 L 01/10/21 07:14 WBC RBC Hgb Hct MCV MCH MCHC RDW Std Deviation RDW Coeff of Juma Plt Count MPV Immature Gran % (Auto) Neut % (Auto) Lymph % (Auto) [place] % (Auto) Eos % (Auto) Baso % (Auto) Neut # (Auto) Lymph # (Auto) [place] # (Auto) Eos # (Auto) Baso # (Auto) Immature Gran # (Auto) PT INR APTT PTT Ratio Sodium Potassium Chloride Carbon Dioxide Anion Gap BUN Creatinine Est Cr Clr Drug Dosing Est GFR ( Amer) Est GFR (Non-Af Amer) BUN/Creatinine Ratio Glucose POC Glucose 108 H Calcium Medications Administered Current Inpatient Medications Acetaminophen (Acetaminophen 325 Mg Tab) 650 mg PO Q4H PRN PRN Reason: Pain or Fever Stop: 02/03/21 20:01 Aspirin (Aspirin 81 Mg Ectab) 81 mg PO QAM [facility] Stop: 02/04/21 08:59 Last Admin: 01/10/21 09:04 Dose: 81 mg Documented by: Carvedilol (Carvedilol 6.25 Mg Tab) 6.25 mg PO BID [facility] Stop: 02/03/21 20:59 Last Admin: 01/10/21 09:04 Dose: 6.25 mg Documented by: Cyanocobalamin (Cyanocobalamin 500 Mcg Tablet (Vitamin B-12)) 1,000 mcg PO QAM [facility] Stop: 02/04/21 08:59 Last Admin: 01/10/21 09:04 Dose: 1,000 mcg Documented by: Dextrose (Dextrose 50% 50 Ml Syringe) 25 - 50 ml IV UD PRN; Protocol PRN Reason: Hypoglycemia Protocol Stop: 02/03/21 20:01 Famotidine (Famotidine 20 Mg Tab) 20 mg PO Q48H [facility] Stop: 02/04/21 08:59 Last Admin: 01/09/21 09:06 Dose: 20 mg Documented by: Furosemide (Furosemide 40 Mg Tab) 40 mg PO Q48H [place] Stop: 02/04/21 08:59 Last Admin: 01/09/21 09:05 Dose: 40 mg Documented by: Glucagon (Glucagon For Inj 1 Mg Vial) 1 mg SQ UD PRN; Protocol PRN Reason: Hypoglycemia Protocol Stop: 02/03/21 20:01 Glucose (Glucose 10 Tabs/Tube) 4 - 8 tabs PO UD PRN; Protocol PRN Reason: Hypoglycemia Protocol Stop: 02/03/21 20:01 Glucose (Glucose 40% Gel 15 Gm Tube) 15 - 30 gm PO UD PRN; Protocol PRN Reason: Hypoglycemia Protocol Stop: 02/03/21 20:01 Doxycycline Hyclate 100 mg/ (Dextrose) 110 mls @ 50 mls/hr IV Q12H [facility] Stop: 01/18/21 20:01 Last Infusion: 01/10/21 00:05 Dose: Infused Documented by: Heparin Sodium/Dextrose (Heparin Sodium/Dextrose) 25,000 units in 500 mls @ 17 mls/hr IV .Q24H [place]; Protocol Stop: 02/03/21 20:01 Last Titration: 01/10/21 06:26 Dose: 850 units/hr, 17 mls/hr Documented by: Insulin Aspart (Insulin Aspart 100 Units/Ml 3 Ml Pen) 0 units SC ACHS [facility] Stop: 02/03/21 20:59 Last Admin: 01/10/21 09:04 Dose: 3 units Documented by: Insulin Glargine (Insulin Glargine Solostar 100 Units/Ml 3 Ml Pen) 0 - 10 units SC BID [facility] Stop: 02/03/21 20:59 Last Admin: 01/10/21 09:05 Dose: Not Given Documented by: Metoprolol Tartrate (Metoprolol Tartrate 1 Mg/Ml Vial) 5 mg IV Q6 PRN PRN Reason: Tachycardia Stop: 02/03/21 20:01 Miscellaneous (Carbohydrates For Hypoglycemia ) 15 - 30 gm PO UD PRN PRN Reason: Hypoglycemia Protocol Stop: 02/03/21 20:01 Neomycin/Polymyxin/Bacitracin (Neomycin/Polymyx/Bacitr Oint 15 Gm Tube) 1 appln EXT BID PRN PRN Reason: right elbow skin tear Stop: 02/05/21 22:52 Polyethylene Glycol (Polyethylene (Miralax) 17 Gm Pack) 17 gm PO DAILY PRN PRN Reason: Constipation Stop: 02/03/21 20:01 Vitamin D (Cholecalciferol 1,000 Units 25 Mcg Tab) 2,000 units PO QAM [facility] Stop: 02/04/21 08:59 Last Admin: 01/10/21 09:06 Dose: 2,000 units Documented by: Warfarin Sodium (Warfarin Sod 5 Mg Tab) 5 mg PO DAILY@1600 [facility] Stop: 02/07/21 15:59 Last Admin: 01/09/21 17:21 Dose: 5 mg Documented by: (1) Diabetes mellitus, type II Diabetes mellitus complication status: without complication Diabetes mellitus manager intermediate insulin use: unspecified residential insulin use status Qualified Code(s): E11.9 - Type 2 diabetes mellitus without complications (2) Anemia Anemia type: unspecified type Qualified Code(s): D64.9 - Anemia, unspecified
[2021-01-10] MEDS: DOXYCYCLINE HYCLATE 100 MG in DEXTROSE 5% 100 ML IV SCH ×2 (12:05→22:13)
[2021-01-10] MEDS ORDERED: WARFARIN SOD 7.5 MG TAB PO SCH (17:15)
[2021-01-10] MEDS: WARFARIN SOD 5 MG TAB PO SCH (17:35)
[2021-01-10] MEDS ORDERED: traMADol HCL 50 MG TABLET PO STA (23:49)
--- NOTE | 2021-01-11 03:13 | Communication Note ---
Date of Service: January 11, 2021 Overnight developments 01/10/21 1150 PM Made aware by RN of patient back pain complaints not relieved by Tylenol. On and off back pain from sitting on dialysis chair for some time now as per patient account according to RN. Tramadol given for pain. 01/11/21 312 AM Notified by nurse charge rn of patient SBP 70s with dark brown emesis. IV Heparin stopped. Patient denies chest pain, S OB, abdominal pain. Back pain okay as per patient PPE SBP 90s Lethargic Pale Irregular No abdominal tenderness Gastric occult blood noted to be positive AP Hypotension secondary to UGI B IV Heparin anticoagulation for A. fib Encephalopathy secondary to above PCU transfer for closer monitoring Albumin (given congestion on last CXR, ESRD) Hold antihypertensives, IV heparin, Coumadin, aspirin IV PPI Stat CBC, Chem, coags, lactic acid Follow H&H, transfuse PRBC to maintain hemoglobin greater than 8 May need vitamin K to reverse coagulopathy CT head, CT abdomen pelvis once BP stable Re: AMS, GI bleed GI consult Re: UGI B Patient son (Galen Jack .) updated over the phone of developments. ADDENDUM : Hemoglobin noted to be 7.2 from 9.2 (01/10) INR noted to be 2 Notified by HISTORICAL SOCIETY DIRECTOR of lactic acid of 4.5 Transfuse PRBC to maintain hemoglobin greater than 8, vitamin K 1 dose now ICU transfer for closer monitoring and possible pressor Rx. Actively bleeding left retroperitoneal bleed measuring 25 cm as per [facility]. Case discussed with Dr. Radford ([facility] transfusion specialist) who recommends Kcentra to further reverse coagulopathy causing life-threatening bleed.
[2021-01-11] MEDS ORDERED: PROMETHAZINE HCL 12.5 MG in SODIUM CHLORIDE 0.9% 50 ML IV STA (03:23)
[2021-01-11] MEDS: ALBUMIN 25% 12.5 GM/50 ML VIAL IV SCH ×2 (03:35→04:09)
[2021-01-11] MEDS ORDERED: PANTOPRAZOLE BOLUS/DRIP 1 EA IV STA (03:37)
[2021-01-11] MEDS ORDERED: PROMETHAZINE HCL 6.25 MG in SODIUM CHLORIDE 0.9% 50 ML IV PRN (03:49)
[2021-01-11] MEDS: PANTOprazole 80 MG in DEXTROSE 5% 100 ML IV STA ×2 (04:14→04:44)
[2021-01-11 04:24] LABS: Basophils # (auto) 0.01 K/uL (0-0.2); Basophils % (auto) 0.1 %; Hematocrit (blood only) 21.5 % (42-52); Hemoglobin 7.2 g/dL (14.0-18.0); Immature Granulocytes # (auto) 0.39 K/uL (0.00-0.02); Immature Granulocytes % (auto) 3.9 %; Lymphocytes # (auto) 1.78 K/uL (1.2-3.4); Lymphocytes % (auto) 17.8 %; Mean Corpuscular Hemoglobin 31.6 pg (25-34); Mean Corpuscular Hgb Conc 33.5 g/dL (32-36); Mean Corpuscular Volume 94.3 fL (80-100); Mean Platelet Volume 10.1 fL (7.4-10.4); Monocytes # (auto) 0.77 K/uL (0.11-0.59); Monocytes % (auto) 7.7 %; Neutrophils # (auto) 7.05 K/uL (1.4-6.5); Neutrophils % (auto) 70.5 %; Platelet Count 240 K/uL (130-400); RDW Standard Deviation 56.4 fL (36.4-46.3); Red Blood Count 2.28 M/uL (4.7-6.1)
[2021-01-11] MEDS ORDERED: SODIUM CHLORIDE 0.9% 250 ML IV PRN ×2 (04:29→10:57)
[2021-01-11 04:47] LABS: Prothrombin Time 19.3 Seconds (9.0-12.0)
[2021-01-11] MEDS ORDERED: PHYTONADIONE 5 MG in SODIUM CHLORIDE 0.9% 50 ML IV ONE (04:52)
[2021-01-11 05:03] LABS: Albumin Globulin Ratio 0.5 (0.9-2); Albumin Level 2.1 gm/dl (3.4-5.0); BUN Creatinine Ratio 9.2 (10-20); Bilirubin,Total 0.7 mg/dl (0.2-1); Calcium 8.4 mg/dl (8.5-10.1); Creatinine Clr Calc Pharmacy 10.4 ml/min; Est GFR (African American) 11.4 ml/min; Est GFR (Non-African American) 9.8 ml/min; Globulin 4.6 gm/dl (2.5-4.0); Magnesium 1.9 mg/dl (1.8-2.4); Potassium 5.1 mmol/L (3.5-5.1); Total Protein 6.7 gm/dl (6.4-8.2)
[2021-01-11 05:19] LABS: Beta-Hydroxybutyrate 11.14 mg/dl (0.2-2.81)
[2021-01-11 05:25] LABS: Partial Thromboplastin Ratio 1.9; Partial Thromboplastin Time 49.3 Seconds (21.0-31.0)
[2021-01-11 05:27] LABS: RBC Morphology Unremarkable
[2021-01-11] MEDS ORDERED: GLUCAGON FOR INJ 1 MG VIAL SQ PRN (05:40)
[2021-01-11] MEDS ORDERED: DEXTROSE 50% 50 ML SYRINGE IV PRN (05:40)
[2021-01-11] MEDS ORDERED: GLUCOSE 10 TABS/TUBE PO PRN (05:40)
[2021-01-11] MEDS ORDERED: CARBOHYDRATES FOR HYPOGLYCEMIA PO PRN (05:40)
[2021-01-11] MEDS ORDERED: GLUCOSE 40% GEL 15 GM TUBE PO PRN (05:40)
[2021-01-11] MEDS ORDERED: ICU PROTOCOL FOR HYPERGLYCEMIA PRN (05:40)
[2021-01-11] MEDS: PANTOprazole 40 MG in DEXTROSE 5% 100 ML IV SCH ×4 (05:41→20:27)
[2021-01-11] MEDS ORDERED: PROTHROMBIN COMP CONC- KCENTRA 2,000 UNITS in SYRINGE 0 ML IV SCH (06:15)
[2021-01-11] MEDS ORDERED: ACETAMINOPHEN 1000 MG/100 ML IV IV ONE (06:27)
[2021-01-11] MEDS ORDERED: traMADol HCL 50 MG TABLET PO PRN (06:29)
[2021-01-11] MEDS ORDERED: fentaNYL citrate 100 MCG/2 ML VIAL IV PRN (06:29)
[2021-01-11] MEDS ORDERED: ACETAMINOPHEN 1000 MG/100 ML IV IV PRN (06:30)
--- NOTE | 2021-01-11 06:40 | XRay Report ---
XR chest 1V portable HISTORY: 75 years-old Male emesis acute nausea with vomiting COMPARISON: CT abdomen and pelvis of same day, Chest radiograph 01/04/2021 TECHNIQUE: Portable AP view of the chest FINDINGS: The cardiac silhouette is upper limits of normal in size. Right IJ dual-lumen hemodialysis catheter d istal tip projects over the expected location of the upper SVC. Atherosclerotic plaque of the thoraci c aorta. Pulmonary vascular congestion with small pleural effusions and minimal bibasilar atelectasis . No pneumothorax. Degenerative changes of the shoulders and spine. IMPRESSION: Pulmonary vascular congestion with small pleural effusions. ACT 112: Negative or not required by law. The above report was generated using voice recognition software. It may contain grammatical, syntax o r spelling errors. Electronically signed by: Billy Vitale M.D. 01/11/2021 6:39 AM
[2021-01-11] MEDS: INSULIN ASPART 100 UNITS/ML 3 ML PEN SC SCH ×5 (06:41→23:57)
--- NOTE | 2021-01-11 06:43 | CT Scan Report ---
CT OF THE HEAD WITHOUT CONTRAST CLINICAL HISTORY: Altered mental status. COMPARISON STUDY: Head CT January 04, 2021. MRI of the brain November 10, 2020. TECHNIQUE: Helical axial images of the head were obtained without IV contrast. Automated exposure con trol was utilized for the study. A dose lowering technique was utilized adhering to the principles o f ALARA. FINDINGS: No acute intracranial hemorrhage, midline shift or mass effect is present. The ventricular system is stable. The basal cisterns are patent. White matter hypodensity suggests small vessel disea se. No extra-axial collections are present. There are no findings to suggest acute dural sinus thromb osis or acute territorial infarct. No significant calvarial abnormalities are present. Visualized por tions of the sinuses and mastoid air cells are clear. IMPRESSION: No acute intracranial findings. ACT 112: Negative or not required by law. Electronically signed by: Oumar Gann M.D. 01/11/2021 6:42 AM
[2021-01-11] MEDS: LIDOCAINE 5% 1 PATCH TD SCH (07:12)
[2021-01-11] MEDS ORDERED: PHARMACY GLYCEMIC MGMT CONSULT PRN (07:54)
--- NOTE | 2021-01-11 08:04 | Gastrointestinal Consultation ---
Date of Consultation January 11, 2021 Assessment & Plan (1) Upper GI bleed: This is a 75 y/o male with multiple co-morbidities, admitted w/ UTI, anaplasmosis and metabolic encephalopathy, now h/o a-fib on IV heparin, and GI consulted for dark emesis and drop in HGB concerning for UGIB in the setting of large retroperitoneal hematoma on CT. HGB 9->7. He has ESRD at baseline, Na 131 and has hyperglycemia. He has gotten vit K and Kcentra and is also getting 1 unit pRBC now. HD stable. On exam he is pale, abd is soft. - We will plan for EGD today to assess for UGI source of dark emesis - Keep NPO - IV PPI - Trend H&H, pRBC transfusion as per primary team - IVF - Appreciate pullman conductor/primary mgmt of his co-morbidities including retroperitoneal hematoma - Please correct Na as able - Monitor and document GI output Thank you for allowing us to participate in the care of this patient. Please call with any acute changes, questions or concerns. Please see addendum below with additional recommendation from my supervising physician. Supervising Physician Co-Signing Physician Notes I saw and evaluated the patient. We are consulted for a question of coffee- ground emesis in the setting of worsening anemia. Of note the patient does have renal failure and was found to have a large retroperitoneal hematoma on CT scan. The patient reports having nausea vomiting fevers or chills today. Physical examination Elderly male, no obvious distress systolic ejection murmur heard No abdominal tenderness Impression: Patient with coffee-ground emesis, this is likely related to underlying gastritis, we are certainly happy to provide endoscopic evaluation for this. I suspect that the patient's worsening anemia is likely related to the retroperitoneal hematoma as opposed to a gastrointestinal bleed. History of Present Illness Reason for Consultation: UGIB Requesting Physician: Dr. Hernández Attending Physician: Zach Ruiz MD History of Present Illness This is a 75 y/o male with PMHx ESRD on dialysis, HTN, HLD, DM and others, admitted 01/02 w/ confusion, generalized weakness, chills, sweats, found to have UTI and anaplasmosis, metabolic encephalopathy. Has had a-fib and started on IV heparin. Overnight had back pain and dark brown emesis that was heme + CT w/ large retroperitoneal hematoma; was given Vit K and Kcentra. INR 2.0, PT 19.3. GI consulted for UGIB. Currently is getting 1 unit pRBC in the ICU; is awake and alert without complaints. HD stable not requiring pressors. HGB 9.2->7.2 overnight. He had formed brown stool yesterday; no melena, hematochezia. History of GIB in 2018 - coffee ground emesis and dark stool. EGD showed esophagitis with gastric biopsies positive for H pylori. He was treated with PPI plus antibiotics. F/u stool for H pylori antigen neg. In 2019 had acute anemia, subsequent EGD showed gastritis with adherent blood without H pylori and duodenal erosions, and colonoscopy with small adenomas. Repeat EGD 2019 unremarkable. Colonoscopy in 05/2020 w/ tics. Denies abd pain, n/v, abd cramping, CP, SOB, cough, fever, leg edema, syncope. He is oriented to person place and time; not clear on the details of his medical history. Allergies Allergy/AdvReac Type Severity Reaction Status Date / Time [id number] Reductase Allergy Severe myopathy Verified 01/11/21 11:09 Inhibitor [Hzasbcs-San-Brc Reductase Inhibitor] LUCHO Inhibitors Allergy Unknown as per Verified 01/11/21 11:09 [facility] sitagliptin AdvReac Intermediate Lightheadedness, Verified 01/11/21 11:09 upper abdominal pain Home Medications Medication Instructions Recorded Confirmed Type cholecalciferol (vitamin D3) 25 2,000 unit PO QAM 10/27/18 01/04/21 History mcg (1,000 unit) capsule (Vitamin D3) cyanocobalamin (vitamin B-12) 1,000 mcg PO QAM 10/27/18 01/04/21 History 1,000 mcg tablet (Vitamin B-12) famotidine 20 mg tablet 20 mg PO Q2D 06/01/20 01/04/21 History aspirin 81 mg tablet,delayed 81 mg PO QAM 10/24/20 01/04/21 History release lorazepam 0.5 mg tablet (Ativan) 0.5 mg PO TID PRN #30 tab 11/10/20 01/04/21 Rx doxycycline hyclate 100 mg tablet 100 mg PO BID 10 Days #20 tab 01/03/21 01/04/21 Rx carvedilol 6.25 mg tablet 6.25 mg PO BID 01/04/21 01/04/21 History furosemide 40 mg tablet 40 mg PO Q2D 01/04/21 01/04/21 History Patient History Medical History (Updated 01/11/21 @ 09:07 by Lizbeth Hernandez DO) Anemia Chronic, Hgb baseline 9-10 range per chart review Anxiety Chronic kidney disease (CKD), stage V Depression Diabetes mellitus, type II Diet controlled, Hgba1c 6.2% on 09/21/20 Dialysis patient [facility] in [place]> goes approximately 4 days per week (days of week differ) Gastric ulcer hx HTN (hypertension) Hyperlipidemia Retroperitoneal hematoma Surgical History History of cataract surgery R/L History of esophagogastroduodenoscopy (EGD) History of peritoneal dialysis Insertion of CAPD catheter (09/23/20): Grade view 2, MAC #3, ETT 7.5 at [facility] History of tooth extraction S/P colonoscopy with polypectomy S/P dialysis catheter insertion Family History Mother Diabetes Breast cancer Family history of diabetes mellitus Father Family history of diabetes mellitus Other No family history of adverse response to anesthesia Social History Smoking Status: Never smoker Tobacco Type: Cigarettes Cigarettes Per Day: 2004; Second Hand Exposure: No; Hx Alcohol Use: No Hx Substance Use: No Preferred Language: Estonian Communication Ability: Effective Visual Impairment: No Limitations Credit Or Loans Officer Required: No Beliefs That Will Affect Care: None marital status: / Current Living Situation: Alone Current Living Situation Comment: Marco Corral lives next door. How many Children do You have: 2 Feels Safe at Home: Yes Assistive Devices: Walker Review of Systems Review of Systems: All systems reviewed & are unremarkable except as noted in Subjective Physical Exam Constitutional: WD/WN, vitals as above pale Eyes: conjunctival pallor Respiratory: normal respiratory effort, lungs clear to auscultation Cardiovascular: RRR, no murmur, no edema Gastrointestinal (Abdomen): normal bowel sounds, soft, nontender, no hepatosplenomegaly Skin: no rashes, warm and dry Psychiatric: A+Ox3, euthymic affect Results & Data ([facility]) Vital Signs (Past 12 Hours) Vital Signs Temp Pulse Pulse Pulse Resp BP BP 01/11/21 07:05 35.6 C L 01/11/21 06:50 35.5 C L 71 17 133/66 01/11/21 06:48 35.5 C L 78 17 150/72 H 01/11/21 06:36 35.5 C L 85 17 124/63 01/11/21 06:31 36.4 C L 71 16 89/56 L 01/11/21 05:35 74 114/70 01/11/21 05:20 79 17 99/50 L 01/11/21 04:51 68 18 96/54 L 01/11/21 04:46 66 18 101/53 L 01/11/21 04:40 74 18 74/46 L 01/11/21 03:48 75 16 72/36 L 01/11/21 03:41 71 16 84/36 L 01/11/21 03:40 82/38 L 01/11/21 03:35 76 76/32 L 01/11/21 03:11 86/51 L 01/11/21 03:05 80 16 76/40 L 01/10/21 23:52 78 01/10/21 23:00 36.5 C 65 20 182/72 H Pulse Ox 01/11/21 07:05 01/11/21 06:50 100 01/11/21 06:48 96 01/11/21 06:36 100 01/11/21 06:31 100 01/11/21 05:35 100 01/11/21 05:20 100 01/11/21 04:51 100 01/11/21 04:46 98 01/11/21 04:40 98 01/11/21 03:48 97 01/11/21 03:41 99 01/11/21 03:40 01/11/21 03:35 01/11/21 03:11 01/11/21 03:05 98 01/10/21 23:52 01/10/21 23:00 98 Laboratory Results 01/11/21 01/11/21 01/11/21 Range/Units 06:39 06:36 05:40 WBC (4.8-10.8) K/uL RBC (4.7-6.1) M/uL Hgb (14.0-18.0) g/dL Hct (42-52) % MCV (80-100) fL MCH (25-34) pg MCHC (32-36) g/dL RDW Std Deviation (36.4-46.3) fL RDW Coeff of Juma (11.5-14.5) % Plt Count (130-400) K/uL MPV (7.4-10.4) fL Immature Gran % (Auto) % Neut % (Auto) % Lymph % (Auto) % Barry % (Auto) % Eos % (Auto) % Baso % (Auto) % Neut # (Auto) (1.4-6.5) K/uL Lymph # (Auto) (1.2-3.4) K/uL Barry # (Auto) (0.11-0.59) K/uL Eos # (Auto) (0-0.5) K/uL Baso # (Auto) (0-0.2) K/uL Immature Gran # (Auto) (0.00-0.02) K/uL RBC Morphology PT (9.0-12.0) Seconds INR (0.9-1.1) APTT PTT Ratio Sodium (136-145) mmol/L Potassium (3.5-5.1) mmol/L Chloride (98-107) mmol/L Carbon Dioxide (21-32) mmol/L Anion Gap (3-11) BUN (7-18) mg/dl Creatinine (0.6-1.4) mg/dl Est Cr Clr Drug Dosing ml/min Est GFR ( Amer) ml/min Est GFR (Non-Af Amer) ml/min BUN/Creatinine Ratio (10-20) Glucose (70-99) mg/dl POC Glucose 329 H* 333 H* (70-99) mg/dl Lactate (0.4-2.0) mmol/L Calcium (8.5-10.1) mg/dl Magnesium (1.8-2.4) mg/dl Total Bilirubin (0.2-1) mg/dl AST (15-37) U/L ALT (12-78) U/L Alkaline Phosphatase (45-117) U/L Total Protein (6.4-8.2) gm/dl Albumin (3.4-5.0) gm/dl Globulin (2.5-4.0) gm/dl Albumin/Globulin Ratio (0.9-2) Lipase (73-393) U/L Beta-Hydroxybutyric Acd (0.2-2.81) mg/dl Specimen Hemolysis Nasal Screen MRSA (PCR) Pending Blood Type Antibody Screen Crossmatch 01/11/21 01/11/21 01/11/21 Range/Units 04:03 04:03 04:03 WBC (4.8-10.8) K/uL RBC (4.7-6.1) M/uL Hgb (14.0-18.0) g/dL Hct (42-52) % MCV (80-100) fL MCH (25-34) pg MCHC (32-36) g/dL RDW Std Deviation (36.4-46.3) fL RDW Coeff of Juma (11.5-14.5) % Plt Count (130-400) K/uL MPV (7.4-10.4) fL Immature Gran % (Auto) % Neut % (Auto) % Lymph % (Auto) % Barry % (Auto) % Eos % (Auto) % Baso % (Auto) % Neut # (Auto) (1.4-6.5) K/uL Lymph # (Auto) (1.2-3.4) K/uL Barry # (Auto) (0.11-0.59) K/uL Eos # (Auto) (0-0.5) K/uL Baso # (Auto) (0-0.2) K/uL Immature Gran # (Auto) (0.00-0.02) K/uL RBC Morphology PT 19.3 H (9.0-12.0) Seconds INR 2.0 H (0.9-1.1) APTT 49.3 H* Cancelled PTT Ratio 1.9 Cancelled Sodium 131 L (136-145) mmol/L Potassium 5.1 D (3.5-5.1) mmol/L Chloride 94 L (98-107) mmol/L Carbon Dioxide 23 (21-32) mmol/L Anion Gap 14.0 H (3-11) BUN 48 H (7-18) mg/dl Creatinine 5.24 H* D (0.6-1.4) mg/dl Est Cr Clr Drug Dosing 10.4 ml/min Est GFR ( Amer) 11.4 ml/min Est GFR (Non-Af Amer) 9.8 ml/min BUN/Creatinine Ratio 9.2 L (10-20) Glucose 322 H* (70-99) mg/dl POC Glucose (70-99) mg/dl Lactate (0.4-2.0) mmol/L Calcium 8.4 L (8.5-10.1) mg/dl Magnesium 1.9 (1.8-2.4) mg/dl Total Bilirubin 0.7 (0.2-1) mg/dl AST 27 (15-37) U/L ALT 26 (12-78) U/L Alkaline Phosphatase 108 (45-117) U/L Total Protein 6.7 (6.4-8.2) gm/dl Albumin 2.1 L (3.4-5.0) gm/dl Globulin 4.6 H (2.5-4.0) gm/dl Albumin/Globulin Ratio 0.5 L (0.9-2) Lipase 235 (73-393) U/L Beta-Hydroxybutyric Acd 11.14 H (0.2-2.81) mg/dl Specimen Hemolysis Cancelled Nasal Screen MRSA (PCR) Blood Type Antibody Screen Crossmatch 01/11/21 01/11/21 01/11/21 Range/Units 04:03 04:03 04:00 WBC 10.00 (4.8-10.8) K/uL RBC 2.28 L (4.7-6.1) M/uL Hgb 7.2 L (14.0-18.0) g/dL Hct 21.5 L (42-52) % MCV 94.3 (80-100) fL MCH 31.6 (25-34) pg MCHC 33.5 (32-36) g/dL RDW Std Deviation 56.4 H (36.4-46.3) fL RDW Coeff of Juma 17.0 H (11.5-14.5) % Plt Count 240 (130-400) K/uL MPV 10.1 (7.4-10.4) fL Immature Gran % (Auto) 3.9 % Neut % (Auto) 70.5 % Lymph % (Auto) 17.8 % Barry % (Auto) 7.7 % Eos % (Auto) 0.0 % Baso % (Auto) 0.1 % Neut # (Auto) 7.05 H (1.4-6.5) K/uL Lymph # (Auto) 1.78 (1.2-3.4) K/uL Barry # (Auto) 0.77 H (0.11-0.59) K/uL Eos # (Auto) 0.00 (0-0.5) K/uL Baso # (Auto) 0.01 (0-0.2) K/uL Immature Gran # (Auto) 0.39 H (0.00-0.02) K/uL RBC Morphology Unremarkable PT (9.0-12.0) Seconds INR (0.9-1.1) APTT PTT Ratio Sodium (136-145) mmol/L Potassium (3.5-5.1) mmol/L Chloride (98-107) mmol/L Carbon Dioxide (21-32) mmol/L Anion Gap (3-11) BUN (7-18) mg/dl Creatinine (0.6-1.4) mg/dl Est Cr Clr Drug Dosing ml/min Est GFR ( Amer) ml/min Est GFR (Non-Af Amer) ml/min BUN/Creatinine Ratio (10-20) Glucose (70-99) mg/dl POC Glucose (70-99) mg/dl Lactate 4.5 H* (0.4-2.0) mmol/L Calcium (8.5-10.1) mg/dl Magnesium (1.8-2.4) mg/dl Total Bilirubin (0.2-1) mg/dl AST (15-37) U/L ALT (12-78) U/L Alkaline Phosphatase (45-117) U/L Total Protein (6.4-8.2) gm/dl Albumin (3.4-5.0) gm/dl Globulin (2.5-4.0) gm/dl Albumin/Globulin Ratio (0.9-2) Lipase (73-393) U/L Beta-Hydroxybutyric Acd (0.2-2.81) mg/dl Specimen Hemolysis Nasal Screen MRSA (PCR) Blood Type O Negative Antibody Screen NEGATIVE Crossmatch See Detail 01/11/21 01/11/21 01/10/21 Range/Units 03:40 03:39 20:04 WBC (4.8-10.8) K/uL RBC (4.7-6.1) M/uL Hgb (14.0-18.0) g/dL Hct (42-52) % MCV (80-100) fL MCH (25-34) pg MCHC (32-36) g/dL RDW Std Deviation (36.4-46.3) fL RDW Coeff of Juma (11.5-14.5) % Plt Count (130-400) K/uL MPV (7.4-10.4) fL Immature Gran % (Auto) % Neut % (Auto) % Lymph % (Auto) % Barry % (Auto) % Eos % (Auto) % Baso % (Auto) % Neut # (Auto) (1.4-6.5) K/uL Lymph # (Auto) (1.2-3.4) K/uL Barry # (Auto) (0.11-0.59) K/uL Eos # (Auto) (0-0.5) K/uL Baso # (Auto) (0-0.2) K/uL Immature Gran # (Auto) (0.00-0.02) K/uL RBC Morphology PT (9.0-12.0) Seconds INR (0.9-1.1) APTT PTT Ratio Sodium (136-145) mmol/L Potassium (3.5-5.1) mmol/L Chloride (98-107) mmol/L Carbon Dioxide (21-32) mmol/L Anion Gap (3-11) BUN (7-18) mg/dl Creatinine (0.6-1.4) mg/dl Est Cr Clr Drug Dosing ml/min Est GFR ( Amer) ml/min Est GFR (Non-Af Amer) ml/min BUN/Creatinine Ratio (10-20) Glucose (70-99) mg/dl POC Glucose 366 H* 328 H* 134 H (70-99) mg/dl Lactate (0.4-2.0) mmol/L Calcium (8.5-10.1) mg/dl Magnesium (1.8-2.4) mg/dl Total Bilirubin (0.2-1) mg/dl AST (15-37) U/L ALT (12-78) U/L Alkaline Phosphatase (45-117) U/L Total Protein (6.4-8.2) gm/dl Albumin (3.4-5.0) gm/dl Globulin (2.5-4.0) gm/dl Albumin/Globulin Ratio (0.9-2) Lipase (73-393) U/L Beta-Hydroxybutyric Acd (0.2-2.81) mg/dl Specimen Hemolysis Nasal Screen MRSA (PCR) Blood Type Antibody Screen Crossmatch 01/10/21 01/10/21 Range/Units 16:34 11:37 WBC (4.8-10.8) K/uL RBC (4.7-6.1) M/uL Hgb (14.0-18.0) g/dL Hct (42-52) % MCV (80-100) fL MCH (25-34) pg MCHC (32-36) g/dL RDW Std Deviation (36.4-46.3) fL RDW Coeff of Juma (11.5-14.5) % Plt Count (130-400) K/uL MPV (7.4-10.4) fL Immature Gran % (Auto) % Neut % (Auto) % Lymph % (Auto) % Barry % (Auto) % Eos % (Auto) % Baso % (Auto) % Neut # (Auto) (1.4-6.5) K/uL Lymph # (Auto) (1.2-3.4) K/uL Barry # (Auto) (0.11-0.59) K/uL Eos # (Auto) (0-0.5) K/uL Baso # (Auto) (0-0.2) K/uL Immature Gran # (Auto) (0.00-0.02) K/uL RBC Morphology PT (9.0-12.0) Seconds INR (0.9-1.1) APTT PTT Ratio Sodium (136-145) mmol/L Potassium (3.5-5.1) mmol/L Chloride (98-107) mmol/L Carbon Dioxide (21-32) mmol/L Anion Gap (3-11) BUN (7-18) mg/dl Creatinine (0.6-1.4) mg/dl Est Cr Clr Drug Dosing ml/min Est GFR ( Amer) ml/min Est GFR (Non-Af Amer) ml/min BUN/Creatinine Ratio (10-20) Glucose (70-99) mg/dl POC Glucose 138 H 138 H (70-99) mg/dl Lactate (0.4-2.0) mmol/L Calcium (8.5-10.1) mg/dl Magnesium (1.8-2.4) mg/dl Total Bilirubin (0.2-1) mg/dl AST (15-37) U/L ALT (12-78) U/L Alkaline Phosphatase (45-117) U/L Total Protein (6.4-8.2) gm/dl Albumin (3.4-5.0) gm/dl Globulin (2.5-4.0) gm/dl Albumin/Globulin Ratio (0.9-2) Lipase (73-393) U/L Beta-Hydroxybutyric Acd (0.2-2.81) mg/dl Specimen Hemolysis Nasal Screen MRSA (PCR) Blood Type Antibody Screen Crossmatch Diagnostic Findings CTAP: Small pleural effusions with dependent bibasilar groundglass and consolidative opacities suggestive of atelectasis. Study is limited secondary to upper extremity positioning and lack of contrast. No pneumatosis or pneumoperitoneum. Moderate cardiomegaly with small pericardial effusion. The unenhanced spleen, moderately atrophic pancreas, gallbladder and liver appear unremarkable. Scattered calcifications of the liver and spleen. Bilateral adrenal gland thickening suggestive of hyperplasia is unchanged. 3 mm calculus of the interpolar right kidney is unchanged. No ureteral calculi or hydronephrosis. Unremarkable left kidney. Mild urinary bladder wall thickening with penis pump. Mild prostamegaly. Small fat filled inguinal hernias. Atherosclerosis of the aorta without aneurysm. No adenopathy. Duodenal diverticulum. No bowel obstruction or bowel wall thickening. Moderate fecal retention of the rectum. Colonic diverticulosis without acute diverticulitis. Large acute retroperitoneal hematoma measures up to 8.0 x 11.8 x 25 cm in AP, transverse and cranial caudal dimensions extending from the level of L1 involving the psoas musculature and posterior pararenal space extending into the pelvis, iliacus and iliopsoas musculature. This displaces the adjacent descending colon. Hemorrhage tracks along the left pericolic gutter. No acute fracture. Degenerative changes of the spine, pelvis and hips. IMPRESSION: 1. Large acute left-sided retroperitoneal hematoma measures up to 25 cm in length and extends into the left hemipelvis, new from 01/02/2021. 2. No bowel obstruction or bowel wall thickening. 3. Colonic diverticulosis. 4. Urinary bladder wall thickening with perivesicular stranding. Correlate with urinalysis to exclude cystitis. 5. Nonobstructing right nephrolithiasis. 6. Small pleural effusions. 7. Additional findings as above. CXR: FINDINGS: The cardiac silhouette is upper limits of normal in size. Right IJ dual-lumen hemodialysis catheter distal tip projects over the expected location of the upper SVC. Atherosclerotic plaque of the thoracic aorta. Pulmonary vascular congestion with small pleural effusions and minimal bibasilar atelectasis. No pneumothorax. Degenerative changes of the shoulders and spine. IMPRESSION: Pulmonary vascular congestion with small pleural effusions.
--- NOTE | 2021-01-11 08:10 | CT Scan Report ---
ABDOMEN AND PELVIS CT WITHOUT CONTRAST CT DOSE: 1449.58 mGy.cm HISTORY: Acute back pain with nausea and vomiting. back pain, nv, gi bleed TECHNIQUE: Multiaxial CT images of the abdomen and pelvis were performed without contrast. A dose lo wering technique was utilized adhering to the principles of ALARA. COMPARISON STUDY: CT abdomen and pelvis 01/02/2021 FINDINGS: Small pleural effusions with dependent bibasilar groundglass and consolidative opacities suggestive o f atelectasis. Study is limited secondary to upper extremity positioning and lack of contrast. No pne umatosis or pneumoperitoneum. Moderate cardiomegaly with small pericardial effusion. The unenhanced spleen, moderately atrophic pancreas, gallbladder and liver appear unremarkable. Scatt ered calcifications of the liver and spleen. Bilateral adrenal gland thickening suggestive of hyperpl yasmany is unchanged. 3 mm calculus of the interpolar right kidney is unchanged. No ureteral calculi or hydronephrosis. Unremarkable left kidney. Mild urinary bladder wall thickening with penis pump. Mild prostamegaly. Small fat filled inguinal hernias. Atherosclerosis of the aorta without aneurysm. No ad enopathy. Duodenal diverticulum. No bowel obstruction or bowel wall thickening. Moderate fecal retention of the rectum. Colonic diverticulosis without acute diverticulitis. Large acute retroperitoneal hematoma me asures up to 8.0 x 11.8 x 25 cm in AP, transverse and cranial caudal dimensions extending from the le gerardo of L1 involving the psoas musculature and posterior pararenal space extending into the pelvis, il iacus and iliopsoas musculature. This displaces the adjacent descending colon. Hemorrhage tracks brent g the left pericolic gutter. No acute fracture. Degenerative changes of the spine, pelvis and hips. IMPRESSION: 1. Large acute left-sided retroperitoneal hematoma measures up to 25 cm in length and extends into th e left hemipelvis, new from 01/02/2021. 2. No bowel obstruction or bowel wall thickening. 3. Colonic diverticulosis. 4. Urinary bladder wall thickening with perivesicular stranding. Correlate with urinalysis to exclude cystitis. 5. Nonobstructing right nephrolithiasis. 6. Small pleural effusions. 7. Additional findings as above. ACT 112: Negative or not required by law. The above report was generated using voice recognition software. It may contain grammatical, syntax o r spelling errors. Electronically signed by: Billy Vitale M.D. 01/11/2021 8:09 AM
--- NOTE | 2021-01-11 08:49 | Critical Care Consultation ---
Date of Consultation January 11, 2021 Assessment & Plan (1) Retroperitoneal hematoma: Reason critically ill: 75yo male transferred to ICU 01/11/21 due to large left retroperitoneal hematoma and upper GI bleed requiring close hemodynamic monitoring. NEURO: CAM-ICU negative. CARDIAC/VASCULAR: Afib - Continue carvedilol for rate control. IV heparin discontinued. Anticoagulation stopped. Patient remains hemodynamically stable. Cardiology is also consulted; patient not a candidate for long-term anticoagulation at this point. Maintain MAPs > 65 mmHg. Fortunately, he has not required pressor support. RESPIRATORY: Small bilateral pleural effusions on imaging. No acute concerns or respiratory distress. Will continue to monitor. GI/NUTRITION: Retroperitoneal hematoma -- acute anemia secondary to retroperitoneal bleed/hematoma. Hgb dropped from 9.2 to 7.2. Received 1 unit PRBCs and Hgb now 7.0. Second unit of PRBCs ordered. Will also obtain CTA abd/pelvis to evaluate bleed. May need to consider transfer to tertiary care for IR. Upper GI bleed -- GI also consulted. Is taking patient for EGD; NPO in preparation for this procedure. Pantoprazole IV. RENAL/LYTES: CKD on HD Saturday, Saturday, Saturday -- plan for HD today. Nephrology on board. Cr elevated at 5.24 Electrolyte replacement per ICU protocol. GENITOURINARY: No acute concerns. Monitor Is/Os. ENDO: Hx of DM, not on any medication at home, most recent HgbA1c 8.5% (on 01/05/21). Currently in DKA -- BG 322, beta-hydroxybutyric acid 11.14. Will start insulin drip. ICU hyperglycemic protocol. HEME: Acute anemia (see GI/retroperitoneal hematoma above). Continue hemodynamic monitoring. ID: Anaplasmosis and UTI tx per primary team. Urine cx + for klebsiella pneumoniae. Continue doxycycline. Lines/IV Access: PIV DVT Prophylaxis: SCDs -- not a candidate for anticoagulation given bleed (2) Acute UTI: (3) Anaplasmosis: (4) Metabolic encephalopathy: (5) Weakness: (6) CKD (chronic kidney disease) stage 5, GFR less than 15 ml/min: Supervising Physician Co-Signing Physician Notes Patient seen and examined with resident physician. I agree with physical exam. I agree with her assessment and plan aside for any additions/exceptions noted: Patient with a retroperitoneal hematoma likely secondary to a spontaneous bleed. Patient was on heparin and Coumadin. Received Kcentra with reversal of INR. Hemodynamically stable. We will continue to trend hemoglobin. No bleeding noted on EGD. Discussed with the hospitalist. I recommended abdominal CTA. No active extravasation noted on the abdominal CT. Imaging of the retroperitoneal hematoma stable. Patient is rate controlled from an atrial fibrillation standpoint. We will hold on further anticoagulation at this time. SCDs for DVT prophylaxis. Insulin drip initiated due to hyperglycemia. Patient chronically on hemodialysis due to end-stage renal disease. Patient can likely transfer to the floor under PCU status in the next 12 to 24 hours. History of Present Illness Attending Physician: Zach Ruiz MD History of Present Illness Mr. Jack is 75-year-old male with PMH HTN, HLD, ESRD (on HD M/W/), diet- controlled DM II, depression, and anxiety who was admitted to [facility] on 01/04/21 for acute weakness and confusion secondary to acute illnesses including anaplasmosis and UTI. Was treated with IV doxycycline. Was also found to have a- fib for which he was started on IV Heparin-Coumadin bridge. According to record review, it appears that patient was doing well and was back to baseline with potential plans for discharge. However, last night, patient noted acute worsening of left low back pain. SBPs dropped to the 70s-90s and he also developed dark brown emesis that was heme positive. Stat abd CT revealed an acute 25cm retroperitoneal hematoma. Hgb dropped from 9.2 to 7.2. IV heparin discontinued around 0300. Was given Vitamin K and Kcentra. He was transferred to the ICU for close hemodynamic monitoring. Since arrival to the ICU, he has done well. Has been HD stable and has not required pressor support. Is currently receiving 1 unit PRBCs. Case discussed with surgery who recommends conservative management at this time and continued monitoring. GI consulted and plans to take patient for EGD today. Patient tells me today that he has had progressively worsening low back pain for "a while" which he has attributed to sitting in the dialysis chairs while receiving dialysis. The pain last night felt the same as this progressive pain but was much worse. Patient does report melena for the past 1-2 weeks but he is unable to report how many abnormal stools he has had while in the hospital. States that low back pain is currently much better than last night, but there is some residual pain. He denies chills, SOB, cough, CP, abdominal pain, nausea, headache, lightheadedness, or dizziness. Allergies Allergy/AdvReac Type Severity Reaction Status Date / Time Mlyukrz-PEW-NwZ Reductase Allergy Severe myopathy Verified 01/11/21 11:09 Inhibitor [Xwggvvs-Oaf-Qkt Reductase Inhibitor] LUCHO Inhibitors Allergy Unknown as per Verified 01/11/21 11:09 [facility] sitagliptin AdvReac Intermediate Lightheadedness, Verified 01/11/21 11:09 upper abdominal pain Home Medications Medication Instructions Recorded Confirmed Type cholecalciferol (vitamin D3) 25 2,000 unit PO QAM 10/27/18 01/04/21 History mcg (1,000 unit) capsule (Vitamin D3) cyanocobalamin (vitamin B-12) 1,000 mcg PO QAM 10/27/18 01/04/21 History 1,000 mcg tablet (Vitamin B-12) famotidine 20 mg tablet 20 mg PO Q2D 06/01/20 01/04/21 History aspirin 81 mg tablet,delayed 81 mg PO QAM 10/24/20 01/04/21 History release lorazepam 0.5 mg tablet (Ativan) 0.5 mg PO TID PRN #30 tab 11/10/20 01/04/21 Rx doxycycline hyclate 100 mg tablet 100 mg PO BID 10 Days #20 tab 01/03/21 01/04/21 Rx carvedilol 6.25 mg tablet 6.25 mg PO BID 01/04/21 01/04/21 History furosemide 40 mg tablet 40 mg PO Q2D 01/04/21 01/04/21 History Patient History Medical History (Updated 01/11/21 @ 09:07 by Lizbeth Hernandez DO) Anemia Chronic, Hgb baseline 9-10 range per chart review Anxiety Chronic kidney disease (CKD), stage V Depression Diabetes mellitus, type II Diet controlled, Hgba1c 6.2% on 09/21/20 Dialysis patient [facility] in [place]> goes approximately 4 days per week (days of week differ) Gastric ulcer hx HTN (hypertension) Hyperlipidemia Retroperitoneal hematoma Surgical History History of cataract surgery R/L History of esophagogastroduodenoscopy (EGD) History of peritoneal dialysis Insertion of CAPD catheter (09/23/20): Grade view 2, MAC #3, ETT 7.5 at [facility] History of tooth extraction S/P colonoscopy with polypectomy S/P dialysis catheter insertion Family History Mother Diabetes Breast cancer Family history of diabetes mellitus Father Family history of diabetes mellitus Other No family history of adverse response to anesthesia Social History Smoking Status: Never smoker Tobacco Type: Cigarettes Cigarettes Per Day: 2004; Second Hand Exposure: No; Hx Alcohol Use: No Hx Substance Use: No Preferred Language: Nepalese Communication Ability: Effective Visual Impairment: No Limitations 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 How many Children do You have: 2 Feels Safe at Home: Yes Assistive Devices: Walker Review of Systems Review of Systems: All systems reviewed & are unremarkable except as noted in HPI & below Physical Exam Physical Exam: GENERAL: Pleasant elderly gentleman in no acute distress. Vital signs reviewed as above. Alert. Responds to verbal stimuli. EYES: EOMI. Anicteric sclerae. HENT: Moist mucous membranes. NECK: No JVD. RESPIRATORY: Clear to auscultation bilaterally. No wheezing, rales, or rhonchi. CARDIOVASCULAR: Regular rate. Irregularly irregular rhythm. No murmurs. ABDOMEN: Soft, non-tender and non-distended. No palpable masses. Normal bowel sounds. EXTREMITIES: No edema. Non-tender. SKIN: Warm, dry. + pallor. NEUROLOGIC: A/O x3. No focal neurological deficits. PSYCHIATRIC: Cooperative. Appropriate mood and affect. Results & Data Results & Data ([facility]) Vital Signs (Past 12 Hours) Vital Signs Temp Pulse Pulse Pulse Resp BP BP 01/11/21 07:05 35.6 C L 01/11/21 06:50 35.5 C L 71 17 133/66 01/11/21 06:48 35.5 C L 78 17 150/72 H 01/11/21 06:36 35.5 C L 85 17 124/63 01/11/21 06:31 36.4 C L 71 16 89/56 L 01/11/21 05:35 74 114/70 01/11/21 05:20 79 17 99/50 L 01/11/21 04:51 68 18 96/54 L 01/11/21 04:46 66 18 101/53 L 01/11/21 04:40 74 18 74/46 L 01/11/21 03:48 75 16 72/36 L 01/11/21 03:41 71 16 84/36 L 01/11/21 03:40 82/38 L 01/11/21 03:35 76 76/32 L 01/11/21 03:11 86/51 L 01/11/21 03:05 80 16 76/40 L 01/10/21 23:52 78 01/10/21 23:00 36.5 C 65 20 182/72 H Pulse Ox 01/11/21 07:05 01/11/21 06:50 100 01/11/21 06:48 96 01/11/21 06:36 100 01/11/21 06:31 100 01/11/21 05:35 100 01/11/21 05:20 100 01/11/21 04:51 100 01/11/21 04:46 98 01/11/21 04:40 98 01/11/21 03:48 97 01/11/21 03:41 99 01/11/21 03:40 01/11/21 03:35 01/11/21 03:11 01/11/21 03:05 98 01/10/21 23:52 01/10/21 23:00 98 Laboratory Results 01/11/21 01/11/21 01/11/21 Range/Units 06:39 06:36 05:40 WBC (4.8-10.8) K/uL RBC (4.7-6.1) M/uL Hgb (14.0-18.0) g/dL Hct (42-52) % MCV (80-100) fL MCH (25-34) pg MCHC (32-36) g/dL RDW Std Deviation (36.4-46.3) fL RDW Coeff of Juma (11.5-14.5) % Plt Count (130-400) K/uL MPV (7.4-10.4) fL Immature Gran % (Auto) % Neut % (Auto) % Lymph % (Auto) % Conway % (Auto) % Eos % (Auto) % Baso % (Auto) % Neut # (Auto) (1.4-6.5) K/uL Lymph # (Auto) (1.2-3.4) K/uL Conway # (Auto) (0.11-0.59) K/uL Eos # (Auto) (0-0.5) K/uL Baso # (Auto) (0-0.2) K/uL Immature Gran # (Auto) (0.00-0.02) K/uL RBC Morphology PT (9.0-12.0) Seconds INR (0.9-1.1) APTT PTT Ratio Sodium (136-145) mmol/L Potassium (3.5-5.1) mmol/L Chloride (98-107) mmol/L Carbon Dioxide (21-32) mmol/L Anion Gap (3-11) BUN (7-18) mg/dl Creatinine (0.6-1.4) mg/dl Est Cr Clr Drug Dosing ml/min Est GFR ( Amer) ml/min Est GFR (Non-Af Amer) ml/min BUN/Creatinine Ratio (10-20) Glucose (70-99) mg/dl POC Glucose 329 H* 333 H* (70-99) mg/dl Lactate (0.4-2.0) mmol/L Calcium (8.5-10.1) mg/dl Magnesium (1.8-2.4) mg/dl Total Bilirubin (0.2-1) mg/dl AST (15-37) U/L ALT (12-78) U/L Alkaline Phosphatase (45-117) U/L Total Protein (6.4-8.2) gm/dl Albumin (3.4-5.0) gm/dl Globulin (2.5-4.0) gm/dl Albumin/Globulin Ratio (0.9-2) Lipase (73-393) U/L Beta-Hydroxybutyric Acd (0.2-2.81) mg/dl Specimen Hemolysis Nasal Screen MRSA (PCR) Negative (Negative) Blood Type Antibody Screen Crossmatch 01/11/21 01/11/21 01/11/21 Range/Units 04:03 04:03 04:03 WBC (4.8-10.8) K/uL RBC (4.7-6.1) M/uL Hgb (14.0-18.0) g/dL Hct (42-52) % MCV (80-100) fL MCH (25-34) pg MCHC (32-36) g/dL RDW Std Deviation (36.4-46.3) fL RDW Coeff of Juma (11.5-14.5) % Plt Count (130-400) K/uL MPV (7.4-10.4) fL Immature Gran % (Auto) % Neut % (Auto) % Lymph % (Auto) % Conway % (Auto) % Eos % (Auto) % Baso % (Auto) % Neut # (Auto) (1.4-6.5) K/uL Lymph # (Auto) (1.2-3.4) K/uL Conway # (Auto) (0.11-0.59) K/uL Eos # (Auto) (0-0.5) K/uL Baso # (Auto) (0-0.2) K/uL Immature Gran # (Auto) (0.00-0.02) K/uL RBC Morphology PT 19.3 H (9.0-12.0) Seconds INR 2.0 H (0.9-1.1) APTT 49.3 H* Cancelled PTT Ratio 1.9 Cancelled Sodium 131 L (136-145) mmol/L Potassium 5.1 D (3.5-5.1) mmol/L Chloride 94 L (98-107) mmol/L Carbon Dioxide 23 (21-32) mmol/L Anion Gap 14.0 H (3-11) BUN 48 H (7-18) mg/dl Creatinine 5.24 H* D (0.6-1.4) mg/dl Est Cr Clr Drug Dosing 10.4 ml/min Est GFR ( Amer) 11.4 ml/min Est GFR (Non-Af Amer) 9.8 ml/min BUN/Creatinine Ratio 9.2 L (10-20) Glucose 322 H* (70-99) mg/dl POC Glucose (70-99) mg/dl Lactate (0.4-2.0) mmol/L Calcium 8.4 L (8.5-10.1) mg/dl Magnesium 1.9 (1.8-2.4) mg/dl Total Bilirubin 0.7 (0.2-1) mg/dl AST 27 (15-37) U/L ALT 26 (12-78) U/L Alkaline Phosphatase 108 (45-117) U/L Total Protein 6.7 (6.4-8.2) gm/dl Albumin 2.1 L (3.4-5.0) gm/dl Globulin 4.6 H (2.5-4.0) gm/dl Albumin/Globulin Ratio 0.5 L (0.9-2) Lipase 235 (73-393) U/L Beta-Hydroxybutyric Acd 11.14 H (0.2-2.81) mg/dl Specimen Hemolysis Cancelled Nasal Screen MRSA (PCR) (Negative) Blood Type Antibody Screen Crossmatch 01/11/21 01/11/21 01/11/21 Range/Units 04:03 04:03 04:00 WBC 10.00 (4.8-10.8) K/uL RBC 2.28 L (4.7-6.1) M/uL Hgb 7.2 L (14.0-18.0) g/dL Hct 21.5 L (42-52) % MCV 94.3 (80-100) fL MCH 31.6 (25-34) pg MCHC 33.5 (32-36) g/dL RDW Std Deviation 56.4 H (36.4-46.3) fL RDW Coeff of Juma 17.0 H (11.5-14.5) % Plt Count 240 (130-400) K/uL MPV 10.1 (7.4-10.4) fL Immature Gran % (Auto) 3.9 % Neut % (Auto) 70.5 % Lymph % (Auto) 17.8 % Conway % (Auto) 7.7 % Eos % (Auto) 0.0 % Baso % (Auto) 0.1 % Neut # (Auto) 7.05 H (1.4-6.5) K/uL Lymph # (Auto) 1.78 (1.2-3.4) K/uL Conway # (Auto) 0.77 H (0.11-0.59) K/uL Eos # (Auto) 0.00 (0-0.5) K/uL Baso # (Auto) 0.01 (0-0.2) K/uL Immature Gran # (Auto) 0.39 H (0.00-0.02) K/uL RBC Morphology Unremarkable PT (9.0-12.0) Seconds INR (0.9-1.1) APTT PTT Ratio Sodium (136-145) mmol/L Potassium (3.5-5.1) mmol/L Chloride (98-107) mmol/L Carbon Dioxide (21-32) mmol/L Anion Gap (3-11) BUN (7-18) mg/dl Creatinine (0.6-1.4) mg/dl Est Cr Clr Drug Dosing ml/min Est GFR ( Amer) ml/min Est GFR (Non-Af Amer) ml/min BUN/Creatinine Ratio (10-20) Glucose (70-99) mg/dl POC Glucose (70-99) mg/dl Lactate 4.5 H* (0.4-2.0) mmol/L Calcium (8.5-10.1) mg/dl Magnesium (1.8-2.4) mg/dl Total Bilirubin (0.2-1) mg/dl AST (15-37) U/L ALT (12-78) U/L Alkaline Phosphatase (45-117) U/L Total Protein (6.4-8.2) gm/dl Albumin (3.4-5.0) gm/dl Globulin (2.5-4.0) gm/dl Albumin/Globulin Ratio (0.9-2) Lipase (73-393) U/L Beta-Hydroxybutyric Acd (0.2-2.81) mg/dl Specimen Hemolysis Nasal Screen MRSA (PCR) (Negative) Blood Type O Negative Antibody Screen NEGATIVE Crossmatch See Detail 01/11/21 01/11/21 01/10/21 Range/Units 03:40 03:39 20:04 WBC (4.8-10.8) K/uL RBC (4.7-6.1) M/uL Hgb (14.0-18.0) g/dL Hct (42-52) % MCV (80-100) fL MCH (25-34) pg MCHC (32-36) g/dL RDW Std Deviation (36.4-46.3) fL RDW Coeff of Juma (11.5-14.5) % Plt Count (130-400) K/uL MPV (7.4-10.4) fL Immature Gran % (Auto) % Neut % (Auto) % Lymph % (Auto) % Conway % (Auto) % Eos % (Auto) % Baso % (Auto) % Neut # (Auto) (1.4-6.5) K/uL Lymph # (Auto) (1.2-3.4) K/uL Conway # (Auto) (0.11-0.59) K/uL Eos # (Auto) (0-0.5) K/uL Baso # (Auto) (0-0.2) K/uL Immature Gran # (Auto) (0.00-0.02) K/uL RBC Morphology PT (9.0-12.0) Seconds INR (0.9-1.1) APTT PTT Ratio Sodium (136-145) mmol/L Potassium (3.5-5.1) mmol/L Chloride (98-107) mmol/L Carbon Dioxide (21-32) mmol/L Anion Gap (3-11) BUN (7-18) mg/dl Creatinine (0.6-1.4) mg/dl Est Cr Clr Drug Dosing ml/min Est GFR ( Amer) ml/min Est GFR (Non-Af Amer) ml/min BUN/Creatinine Ratio (10-20) Glucose (70-99) mg/dl POC Glucose 366 H* 328 H* 134 H (70-99) mg/dl Lactate (0.4-2.0) mmol/L Calcium (8.5-10.1) mg/dl Magnesium (1.8-2.4) mg/dl Total Bilirubin (0.2-1) mg/dl AST (15-37) U/L ALT (12-78) U/L Alkaline Phosphatase (45-117) U/L Total Protein (6.4-8.2) gm/dl Albumin (3.4-5.0) gm/dl Globulin (2.5-4.0) gm/dl Albumin/Globulin Ratio (0.9-2) Lipase (73-393) U/L Beta-Hydroxybutyric Acd (0.2-2.81) mg/dl Specimen Hemolysis Nasal Screen MRSA (PCR) (Negative) Blood Type Antibody Screen Crossmatch 01/10/21 01/10/21 Range/Units 16:34 11:37 WBC (4.8-10.8) K/uL RBC (4.7-6.1) M/uL Hgb (14.0-18.0) g/dL Hct (42-52) % MCV (80-100) fL MCH (25-34) pg MCHC (32-36) g/dL RDW Std Deviation (36.4-46.3) fL RDW Coeff of Juma (11.5-14.5) % Plt Count (130-400) K/uL MPV (7.4-10.4) fL Immature Gran % (Auto) % Neut % (Auto) % Lymph % (Auto) % Conway % (Auto) % Eos % (Auto) % Baso % (Auto) % Neut # (Auto) (1.4-6.5) K/uL Lymph # (Auto) (1.2-3.4) K/uL Conway # (Auto) (0.11-0.59) K/uL Eos # (Auto) (0-0.5) K/uL Baso # (Auto) (0-0.2) K/uL Immature Gran # (Auto) (0.00-0.02) K/uL RBC Morphology PT (9.0-12.0) Seconds INR (0.9-1.1) APTT PTT Ratio Sodium (136-145) mmol/L Potassium (3.5-5.1) mmol/L Chloride (98-107) mmol/L Carbon Dioxide (21-32) mmol/L Anion Gap (3-11) BUN (7-18) mg/dl Creatinine (0.6-1.4) mg/dl Est Cr Clr Drug Dosing ml/min Est GFR ( Amer) ml/min Est GFR (Non-Af Amer) ml/min BUN/Creatinine Ratio (10-20) Glucose (70-99) mg/dl POC Glucose 138 H 138 H (70-99) mg/dl Lactate (0.4-2.0) mmol/L Calcium (8.5-10.1) mg/dl Magnesium (1.8-2.4) mg/dl Total Bilirubin (0.2-1) mg/dl AST (15-37) U/L ALT (12-78) U/L Alkaline Phosphatase (45-117) U/L Total Protein (6.4-8.2) gm/dl Albumin (3.4-5.0) gm/dl Globulin (2.5-4.0) gm/dl Albumin/Globulin Ratio (0.9-2) Lipase (73-393) U/L Beta-Hydroxybutyric Acd (0.2-2.81) mg/dl Specimen Hemolysis Nasal Screen MRSA (PCR) (Negative) Blood Type Antibody Screen Crossmatch Diagnostic Findings ABDOMEN AND PELVIS CT WITHOUT CONTRAST 01/11/2021 CT DOSE: 1449.58 mGy.cm HISTORY: Acute back pain with nausea and vomiting. back pain, nv, gi bleed TECHNIQUE: Multiaxial CT images of the abdomen and pelvis were performed without contrast. A dose lowering technique was utilized adhering to the principles of ALARA. COMPARISON STUDY: CT abdomen and pelvis 01/02/2021 FINDINGS: Small pleural effusions with dependent bibasilar groundglass and consolidative opacities suggestive of atelectasis. Study is limited secondary to upper extremity positioning and lack of contrast. No pneumatosis or pneumoperitoneum. Moderate cardiomegaly with small pericardial effusion. The unenhanced spleen, moderately atrophic pancreas, gallbladder and liver appear unremarkable. Scattered calcifications of the liver and spleen. Bilateral adrenal gland thickening suggestive of hyperplasia is unchanged. 3 mm calculus of the interpolar right kidney is unchanged. No ureteral calculi or hydronephrosis. Unremarkable left kidney. Mild urinary bladder wall thickening with penis pump. Mild prostamegaly. Small fat filled inguinal hernias. Atherosclerosis of the aorta without aneurysm. No adenopathy. Duodenal diverticulum. No bowel obstruction or bowel wall thickening. Moderate fecal retention of the rectum. Colonic diverticulosis without acute diverticulitis. Large acute retroperitoneal hematoma measures up to 8.0 x 11.8 x 25 cm in AP, transverse and cranial caudal dimensions extending from the level of L1 involving the psoas musculature and posterior pararenal space extending into the pelvis, iliacus and iliopsoas musculature. This displaces the adjacent descending colon. Hemorrhage tracks along the left pericolic gutter. No acute fracture. Degenerative changes of the spine, pelvis and hips. IMPRESSION: 1. Large acute left-sided retroperitoneal hematoma measures up to 25 cm in length and extends into the left hemipelvis, new from 01/02/2021. 2. No bowel obstruction or bowel wall thickening. 3. Colonic diverticulosis. 4. Urinary bladder wall thickening with perivesicular stranding. Correlate with urinalysis to exclude cystitis. 5. Nonobstructing right nephrolithiasis. 6. Small pleural effusions. 7. Additional findings as above. CT OF THE HEAD WITHOUT CONTRAST 01/11/2021 CLINICAL HISTORY: Altered mental status. COMPARISON STUDY: Head CT January 04, 2021. MRI of the brain November 10, 2020. TECHNIQUE: Helical axial images of the head were obtained without IV contrast. Automated exposure control was utilized for the study. A dose lowering tech nique was utilized adhering to the principles of ALARA. FINDINGS: No acute intracranial hemorrhage, midline shift or mass effect is present. The ventricular system is stable. The basal cisterns are patent. White matter hypodensity suggests small vessel disease. No extra-axial collections are present. There are no findings to suggest acute dural sinus thrombosis or acute territorial infarct. No significant calvarial abnormalities are present. Visualized portions of the sinuses and mastoid air cells are clear. IMPRESSION: No acute intracranial findings. XR chest 1V portable HISTORY: 75 years-old Male emesis acute nausea with vomiting COMPARISON: CT abdomen and pelvis of same day, Chest radiograph 01/04/2021 TECHNIQUE: Portable AP view of the chest FINDINGS: The cardiac silhouette is upper limits of normal in size. Right IJ dual-lumen hemodialysis catheter distal tip projects over the expected location of the upper SVC. Atherosclerotic plaque of the thoracic aorta. Pulmonary vascular congestion with small pleural effusions and minimal bibasilar atelectasis. No pneumothorax. Degenerative changes of the shoulders and spine. IMPRESSION: Pulmonary vascular congestion with small pleural effusions. Resident Activity Tracking Resident Involvement: Resident Care Provided Care Provided: Adult Hospital Medicine
[2021-01-11] MEDS ORDERED: INSULIN GLARGINE SOLOSTAR 100 UNITS/ML 3 ML PEN SC SCH (09:00)
--- NOTE | 2021-01-11 09:06 | Cardiology Progress Note ---
Date of Service January 11, 2021 Assessment & Plan (1) Atrial fibrillation: (2) Acute alteration in mental status: (3) Acute UTI: (4) Elevated troponin: (5) Fall: (6) Thrombocytopenia: (7) Upper GI bleed: (8) Ambulatory dysfunction: (9) Diabetes mellitus, type II: (10) HTN (hypertension): (11) Hyperlipidemia: (12) Anemia: Plan: Last night the patient was transferred to the ICU due to hypotension from a retroperitoneal bleed. Patient received 1 unit of packed red blood cells. Anticoagulation has been stopped. The patient is currently hemodynamically stable. The patient is definitely not a candidate for long-term anticoagulation at this point. Admission and Anticipated Discharge Date Admission Date: January 04, 2021 Subjective The patient is resting comfortably. Transferred to the ICU due to hypotension from a retro-peritoneal bleed Review of Systems Review of Systems: Not obtainable Physical Exam Physical Exam: General: no acute distress and stated age Head: normocephalic, no masses, lesions, tenderness or abnormalities Eyes: conjunctiva are pink and non-injected, sclera clear Neck: supple, no adenopathy, no bruits, normal jugular venous pulse, no hepatojugular reflux Chest: normal shape and normal respiratory effort Lungs: clear to auscultation and percussion Cardiac Exam: - regular rate & rhythm, no murmurs gallops or rubs - normal S1, normal S2 Pulses: 2(+) throughout Abdomen: abdomen soft, non-tender, no abnormal masses and no hepatosplenomegaly Musculoskeletal: no gait disturbance, no joint inflammation, no deforming arthritis Extremities: no edema and no cyanosis Neuro: grossly normal exam Results & Data ([facility]) Vital Signs (Past 12 Hours) Vital Signs Temp Pulse Pulse Pulse Resp BP BP 01/11/21 07:05 35.6 C L 01/11/21 07:00 73 01/11/21 06:50 35.5 C L 71 17 133/66 01/11/21 06:48 35.5 C L 78 17 150/72 H 01/11/21 06:36 35.5 C L 85 17 124/63 01/11/21 06:31 36.4 C L 71 16 89/56 L 01/11/21 05:35 74 114/70 01/11/21 05:20 79 17 99/50 L 01/11/21 04:51 68 18 96/54 L 01/11/21 04:46 66 18 101/53 L 01/11/21 04:40 74 18 74/46 L 01/11/21 03:48 75 16 72/36 L 01/11/21 03:41 71 16 84/36 L 01/11/21 03:40 82/38 L 01/11/21 03:35 76 76/32 L 01/11/21 03:11 86/51 L 01/11/21 03:05 80 16 76/40 L 01/10/21 23:52 78 01/10/21 23:00 36.5 C 65 20 182/72 H Pulse Ox 01/11/21 07:05 01/11/21 07:00 01/11/21 06:50 100 01/11/21 06:48 96 01/11/21 06:36 100 01/11/21 06:31 100 01/11/21 05:35 100 01/11/21 05:20 100 01/11/21 04:51 100 01/11/21 04:46 98 01/11/21 04:40 98 01/11/21 03:48 97 01/11/21 03:41 99 01/11/21 03:40 01/11/21 03:35 01/11/21 03:11 01/11/21 03:05 98 01/10/21 23:52 01/10/21 23:00 98 (1) Diabetes mellitus, type II Diabetes mellitus complication status: without complication 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
[2021-01-11] MEDS: DOXYCYCLINE HYCLATE 100 MG in DEXTROSE 5% 100 ML IV SCH ×2 (09:37→22:00)
[2021-01-11 10:02] LABS: INR 1.3 (0.9-1.1)
[2021-01-11] MEDS ORDERED: INSULIN PROTOCOL GOAL RANGE ONE (10:17)
[2021-01-11] MEDS ORDERED: STAT IV Infusion **Titration per Protocol STA (10:17)
[2021-01-11] MEDS ORDERED: INSULIN REGULAR 250 UNITS in SODIUM CHLORIDE 0.9% 247.5 ML IV SCH (10:45)
[2021-01-11 10:46] LABS: Hematocrit (blood only) 20.7 % (42-52)
--- NOTE | 2021-01-11 11:14 | Anesthesiology Consultation ---
Date of Service January 11, 2021 Assessment & Plan Chart Review Chart Review: Acceptable Risk for Surgery Consults Requested none History Surgery Operation Date: 01/11/21 16:15 Proposed Procedures p Esophagogastroduodenoscopy Dr Kevyn Bagley, Height/Weight Height: 5 ft 5 in Weight: 68.4 kg Allergies Allergy/AdvReac Type Severity Reaction Status Date / Time Sovkjcp-RBA-FpD Reductase Allergy Severe myopathy Verified 01/11/21 11:09 Inhibitor [Oxezjxr-Ysw-Xbz Reductase Inhibitor] LUCHO Inhibitors Allergy Unknown as per Verified 01/11/21 11:09 [facility] sitagliptin AdvReac Intermediate Lightheadedness, Verified 01/11/21 11:09 upper abdominal pain Medications Home Medications Medication Instructions Recorded Confirmed Last Taken cholecalciferol (vitamin D3) 25 2,000 unit PO QAM 10/27/18 01/04/21 11/21/20 06:30 mcg (1,000 unit) capsule (Vitamin D3) cyanocobalamin (vitamin B-12) 1,000 mcg PO QAM 10/27/18 01/04/21 11/21/20 06:30 1,000 mcg tablet (Vitamin B-12) famotidine 20 mg tablet 20 mg PO Q2D 06/01/20 01/04/21 11/21/20 06:30 aspirin 81 mg tablet,delayed 81 mg PO QAM 10/24/20 01/04/21 11/21/20 06:30 release lorazepam 0.5 mg tablet (Ativan) 0.5 mg PO TID PRN #30 tab 11/10/20 01/04/21 Unknown doxycycline hyclate 100 mg tablet 100 mg PO BID 10 Days #20 tab 01/03/21 01/04/21 Unknown carvedilol 6.25 mg tablet 6.25 mg PO BID 01/04/21 01/04/21 Unknown furosemide 40 mg tablet 40 mg PO Q2D 01/04/21 01/04/21 Unknown Active Medications Generic Name Dose Route Start Last Admin Trade Name Freq PRN Reason Stop Dose Admin Acetaminophen 650 mg 01/04/21 20:02 01/10/21 22:12 Acetaminophen 325 Mg Tab PO 02/03/21 20:01 650 mg Q4H PRN Administration Pain or Fever Aspirin 81 mg 01/05/21 09:00 01/10/21 09:04 Aspirin 81 Mg Ectab PO 02/04/21 08:59 81 mg QAM [place] Administration Carvedilol 6.25 mg 01/04/21 21:00 01/10/21 22:13 Carvedilol 6.25 Mg Tab PO 02/03/21 20:59 6.25 mg BID PAR[place] Administration Cyanocobalamin 1,000 mcg 01/05/21 09:00 01/10/21 09:04 Cyanocobalamin 500 Mcg Tablet (Vitamin B-12) PO 02/04/21 08:59 1,000 mcg QAM [place] Administration Fentanyl Citrate 12.5 mcg 01/11/21 06:29 01/11/21 06:37 Fentanyl Citrate 100 Mcg/2 Ml Vial IV 01/25/21 06:28 12.5 mcg Q1H PRN Administration pain not relieved by po meds Furosemide 40 mg 01/05/21 09:00 01/09/21 09:05 Furosemide 40 Mg Tab PO 02/04/21 08:59 40 mg Q48H PARIS Administration Doxycycline Hyclate 100 mg/ 110 mls @ 50 mls/hr 01/04/21 21:00 01/11/21 09:37 Dextrose IV 01/18/21 20:01 50 mls/hr Q12H [place] Administration Pantoprazole Sodium 40 mg/ 100 mls @ 20 mls/hr 01/11/21 04:30 01/11/21 09:28 Dextrose IV 02/10/21 04:29 8 mg/hr Q5H PARIS 20 mls/hr Administration 8 MG/HR Insulin Human Regular 250 250 mls @ 2.6 mls/hr 01/11/21 10:45 01/11/21 10:41 units/ Sodium Chloride IV 02/10/21 10:44 2.6 units/hr .Q24H PARIS 2.6 mls/hr Administration Protocol 2.6 UNITS/HR Insulin Aspart 0 units 01/11/21 06:00 01/11/21 06:41 Insulin Aspart 100 Units/Ml 3 Ml Pen SC 02/10/21 05:59 6 units Q6 PARIS Administration Insulin Aspart 0 units 01/11/21 11:30 01/11/21 10:42 Insulin Aspart 100 Units/Ml 3 Ml Pen SC 02/10/21 11:29 Not Given ACHS PARIS Lidocaine 1 patch 01/11/21 06:30 01/11/21 07:12 Lidocaine 5% 1 Patch TD 02/10/21 06:29 1 patch QAM [place] Administration Vitamin D 2,000 units 01/05/21 09:00 01/10/21 09:06 Cholecalciferol 1,000 Units 25 Mcg Tab PO 02/04/21 08:59 2,000 units QAM [place] Administration NPO Date Last Intake of Fluids: 01/11/21 Time Last Intake of Fluids: 04:00 Date Last Intake of Solids: 01/10/21 Time Last Intake of Solids: 18:00 Past Medical History Medical History (Updated 01/11/21 @ 09:07 by Lizbeth Hernandez DO) Anemia Chronic, Hgb baseline 9-10 range per chart review Anxiety Chronic kidney disease (CKD), stage V Depression Diabetes mellitus, type II Diet controlled, Hgba1c 6.2% on 09/21/20 Dialysis patient [facility] in [facility]> goes approximately 4 days per week (days of week differ) Gastric ulcer hx HTN (hypertension) Hyperlipidemia Retroperitoneal hematoma Past Family History Family History Mother Diabetes Breast cancer Family history of diabetes mellitus Father Family history of diabetes mellitus Other No family history of adverse response to anesthesia Past Surgical History Surgical History History of cataract surgery R/L History of esophagogastroduodenoscopy (EGD) History of peritoneal dialysis Insertion of CAPD catheter (09/23/20): Grade view 2, MAC #3, ETT 7.5 at [facility] History of tooth extraction S/P colonoscopy with polypectomy S/P dialysis catheter insertion Social History Smoking Status: Never smoker tobacco type: cigarettes Smoking cigarettes per day: 2003 Hx Alcohol Use: No Alcohol type: beer alcohol intake frequency: holidays/special occasions only Hx Substance Use: No substance use type: does not use Last Used Substance: Days (ago) Physical Exam Vital Signs Last Vital Signs Temp 36.3 C L 01/11/21 11:10 Pulse 78 01/11/21 11:10 Resp 18 01/11/21 11:10 BP 143/65 H 01/11/21 11:10 Pulse Ox 100 01/11/21 11:10 Testing Laboratory Results 01/11/21 09:37 01/11/21 04:03 PT 13.0 Seconds (9.0-12.0) H 01/11/21 09:37 INR 1.3 (0.9-1.1) H 01/11/21 09:37 APTT 49.3 Seconds (21.0-31.0) H* 01/11/21 04:03 APTT Cancelled 01/11/21 04:03 Hemoglobin A1c 8.5 % (4.5-5.6) H 01/05/21 06:24 Urine Color Yellow 01/04/21 18:54 Urine Appearance Cloudy (Clear) A 01/04/21 18:54 Urine pH 5.0 (4.5-7.5) 01/04/21 18:54 Ur Specific [place] 1.011 (1.000-1.030) 01/04/21 18:54 Urine Protein Trace (Negative) H 01/04/21 18:54 Urine Glucose (UA) 1+ (Negative) H 01/04/21 18:54 Urine Ketones Trace (Negative) H 01/04/21 18:54 Urine Nitrite Negative (Negative) 01/04/21 18:54 Ur Leukocyte Esterase 1+ (Negative) H 01/04/21 18:54 Urine WBC (Auto) >30 /hpf (0-5) H 01/04/21 18:54 Urine RBC (Auto) 5-10 /hpf (0-4) H 01/04/21 18:54 U Hyaline Cast (Auto) 1-5 /lpf (0-5) 01/04/21 18:54 U Epithel Cells (Auto) 5-10 /lpf (0-5) H 01/04/21 18:54 Urine Bacteria (Auto) 4+ (Negative) H 01/04/21 18:54 Blood Type O Negative 01/11/21 04:03 Antibody Screen NEGATIVE 01/11/21 04:03 01/04/21 18:46 Aerobic Blood Culture - Final Blood No growth in Aerobic bottle after 5 days. Anaerobic Blood Culture - Final No growth in Anaerobic bottle after 5 days. 01/04/21 18:46 Aerobic Blood Culture - Final Blood No growth in Aerobic bottle after 5 days. Anaerobic Blood Culture - Final No growth in Anaerobic bottle after 5 days. 01/04/21 18:54 Urine Culture - Final Urine,Clean Catch Klebsiella pneumoniae 01/11/21 01/11/2121 10:37 06:39 06:36 POC Glucose 253 H 329 H* 333 H* 01/11/21 01/11/21 03:40 03:39 POC Glucose 366 H* 328 H*
[2021-01-11] MEDS ORDERED: LIDOCAINE 2% 2 ML VIAL/AMP(20MG/ML) INFIL ONE (11:26)
[2021-01-11] MEDS ORDERED: PHENYLEPHRINE 100MCG/ML 5ML SYR ONE (11:26)
[2021-01-11] MEDS ORDERED: PROPOFOL IV EMULSION 10 MG/ML 20 ML VIAL IV ONE (11:26)
--- NOTE | 2021-01-11 11:30 | Communication Note ---
Date of Service: January 11, 2021 Patient underwent upper endoscopy for evaluation of coffee-ground emesis witnessed this morning. The examination was notable for a small hiatal hernia and an otherwise normal upper endoscopy. Given the patient's CT scan the most likely source of the anemia is related to the large retroperitoneal hemorrhage. Please call with any questions or concerns GI to sign off
--- NOTE | 2021-01-11 11:30 | GI REPORT ---
Patient Name: Galen Jack Procedure Date: 01/11/2021 11:08 AM Date of : 1945 Admit Type: Inpatient Age: 75 Gender: Male Attending MD: Essence Bagley DO Procedure: Upper GI endoscopy Providers: Essence Bagley DO Referring MD: Zach Ruiz Indications: Coffee-ground emesis Medicines: Monitored Anesthesia Care Complications: No immediate complications. Estimated blood loss: Minimal. Estimated Blood Loss: Estimated blood loss was minimal. Procedure: Pre-Anesthesia Assessment: - Prior to the procedure, a History and Physical was performed, and patient medications, allergies and sensitivities were reviewed. The patient's tolerance of previous anesthesia was reviewed. - The risks and benefits of the procedure and the sedation options and risks were discussed with the patient. All questions were answered and informed consent was obtained. - Patient identification and proposed procedure were verified prior to the procedure by the physician, the nurse and the investor relations associate. The procedure was verified in the procedure room. - Pre-procedure physical examination revealed no contraindications to sedation. - ASA Grade Assessment: IV - A patient with severe systemic disease that is a constant threat to life. - After reviewing the risks and benefits, the patient was deemed in satisfactory condition to undergo the procedure. - The anesthesia plan was to use monitored anesthesia care (MAC). - Immediately prior to administration of medications, the patient was re-assessed for adequacy to receive sedatives. - The heart rate, respiratory rate, oxygen saturations, blood pressure, adequacy of pulmonary ventilation, and response to care were monitored throughout the procedure. - The physical status of the patient was re-assessed after the procedure. After obtaining informed consent, the endoscope was passed under direct vision. Throughout the procedure, the patient's blood pressure, pulse, and oxygen saturations were monitored continuously. The Endoscope was introduced through the mouth, and advanced to the third part of duodenum. The upper GI endoscopy was accomplished without difficulty. The patient tolerated the procedure well. Findings: The examined esophagus was normal. A small hiatal hernia was found. The proximal extent of the gastric folds (end of tubular esophagus) was 38 cm from the incisors. The hiatal narrowing was 40 cm from the incisors. The Z-line was 38 cm from the incisors. A small amount of food (residue) was found in the gastric body. The examined duodenum was normal. There is no endoscopic evidence of bleeding in the entire examined stomach. Impression: - Normal esophagus. - Small hiatal hernia. - A small amount of food (residue) in the stomach. - Normal examined duodenum. - No specimens collected. Recommendation: - [facility]. - No evidence of bleeding in the upper digestive tract seen today. - Anemia likely related to the patient's retroperitoneal hemorrhage - Please call with any questions or concerns, gastroenterology to sign off Essence Bagley D.O. Essence Bagley, 01/11/2021 11:29:47 AM This report has been signed electronically. Note Initiated On: 01/11/2021 11:08 AM Number of Addenda: 0 I attest to the content of the Intraoperative Record and orders documented therein, exceptions below {[id number]}
--- NOTE | 2021-01-11 11:38 | Anesthesiology Progress Note ---
Date of Service January 11, 2021 Anesthesia Post Procedure Vital Signs Vital Signs: Temp Pulse Pulse Pulse Resp BP BP 01/11/21 11:29 78 16 102/66 01/11/21 11:10 36.3 C L 78 78 18 143/65 H 01/11/21 10:50 36.6 C 76 13 01/11/21 09:22 36.2 C L 84 16 156/72 H 01/11/21 07:33 36.5 C 71 14 147/58 H 01/11/21 07:05 35.6 C L 01/11/21 07:03 35.5 C L 80 16 147/65 H 01/11/21 07:00 73 01/11/21 06:50 35.5 C L 71 17 133/66 01/11/21 06:48 35.5 C L 78 17 150/72 H 01/11/21 06:36 35.5 C L 85 17 124/63 01/11/21 06:31 36.4 C L 71 16 89/56 L 01/11/21 05:35 74 114/70 01/11/21 05:20 79 17 99/50 L 01/11/21 04:51 68 18 96/54 L 01/11/21 04:46 66 18 101/53 L 01/11/21 04:40 74 18 74/46 L 01/11/21 03:48 75 16 72/36 L 01/11/21 03:41 71 16 84/36 L 01/11/21 03:40 82/38 L 01/11/21 03:35 76 76/32 L 01/11/21 03:11 86/51 L 01/11/21 03:05 80 16 76/40 L 01/10/21 23:52 78 01/10/21 23:00 36.5 C 65 20 182/72 H 01/10/21 18:42 36.4 C L 72 20 178/74 H 01/10/21 16:40 166/62 H 01/10/21 16:06 36.4 C L 64 18 181/65 H 01/10/21 12:04 36.6 C 70 20 165/73 H BP Pulse Ox 01/11/21 11:29 97 01/11/21 11:10 100 01/11/21 10:50 121/64 99 01/11/21 09:22 95 01/11/21 07:33 100 01/11/21 07:05 01/11/21 07:03 100 01/11/21 07:00 01/11/21 06:50 100 01/11/21 06:48 96 01/11/21 06:36 100 01/11/21 06:31 100 01/11/21 05:35 100 01/11/21 05:20 100 01/11/21 04:51 100 01/11/21 04:46 98 01/11/21 04:40 98 01/11/21 03:48 97 01/11/21 03:41 99 01/11/21 03:40 01/11/21 03:35 01/11/21 03:11 01/11/21 03:05 98 01/10/21 23:52 01/10/21 23:00 98 01/10/21 18:42 98 01/10/21 16:40 01/10/21 16:06 98 01/10/21 12:04 99 Transfer of Care Handoff Completed per policy Notes Mental Status: alert / awake / arousable and participated in evaluation Patient Amnestic to Procedure: Yes Nausea / Vomiting: adequately controlled Pain: adequately controlled Airway Patency, RR, SpO2: stable & adequate BP & HR: stable & adequate Hydration State: stable & adequate Anesthetic Complications: no major complications apparent
[2021-01-11] MEDS ORDERED: OPTIRAY 320 125ml IV ONE (12:27)
--- NOTE | 2021-01-11 12:51 | CT Scan Report ---
CT angio abd pelvis wo/w con HISTORY: 75 years-old Male retroperitoneal hematoma follow-up study in a patient with large retroper itoneal hematoma COMPARISON: CT abdomen and pelvis obtained same day at 5:06 AM TECHNIQUE: CTA of the abdomen and pelvis was obtained both with and without the use of 120 mL Optiray 320. All measurements were obtained according to NASCET criteria. 3-D coronal and sagittal MIPS were obtained from the axial data set and were submitted for review. A dose lowering technique was used c onsistent with the principals billy VELÁZQUEZ. FINDINGS: CT ABDOMEN/PELVIS: Small pleural effusions with dependent bibasilar groundglass and consolidative opacities suggestive o f atelectasis. No pneumatosis or pneumoperitoneum. Moderate cardiomegaly with small pericardial effus ion. The spleen, moderately atrophic pancreas, gallbladder and liver appear unremarkable. Scattered calcif ications of the liver and spleen. Bilateral adrenal gland thickening suggestive of hyperplasia is unc hanged. 3 mm calculus of the interpolar right kidney is unchanged. No ureteral calculi or hydronephro sis. Unremarkable left kidney. Mild urinary bladder wall thickening with penis pump. Mild prostamegal y. Small fat filled inguinal hernias. Atherosclerosis of the aorta without aneurysm. No adenopathy. Duodenal diverticulum. No bowel obstruction or bowel wall thickening. Moderate fecal retention of the rectum. A rectal lead has been placed in the interval. Colonic diverticulosis without acute divertic ulitis. Large acute retroperitoneal hematoma measures approximately 8.0 x 12 x 25 cm in AP, transvers e and cranial caudal dimensions extending from the level of L1 involving the psoas musculature and po sterior pararenal space extending into the pelvis, iliacus and iliopsoas musculature. This displaces the adjacent descending colon. Hemorrhage tracks along the left pericolic gutter. There is no appreci able change from comparison. No evidence of active extravasation. No acute fracture. Degenerative gabi nges of the spine, pelvis and hips. CTA: Moderate atherosclerotic plaque of the abdominal aorta and branch vessels. No abdominal aortic aneury sm or dissection. There is approximately 50% luminal narrowing at the proximal celiac trunk and super ior mesenteric artery secondary to atherosclerotic plaque. The renal arteries are patent bilaterally. Duplicated right renal arteries. Patent inferior mesenteric artery. The iliac arteries are patent. IMPRESSION: 1. Stable large acute left-sided retroperitoneal hematoma measuring up to approximately 25 cm extendi ng into the left hemipelvis redemonstrated. No evidence of active extravasation. 2. Cardiomegaly with moderate atherosclerotic vascular disease. There is multifocal luminal narrowing involving aortic branch vessels measuring up to approximately 50%. No high-grade stenosis, arterial occlusion, dissection or aneurysm. 3. Colonic diverticulosis. 4. Urinary bladder wall thickening with perivesicular stranding. Correlate with urinalysis to exclude cystitis. 5. Nonobstructing right nephrolithiasis. 6. Small pleural effusions. 7. Additional findings as above. ACT 112: Negative or not required by law. The above report was generated using voice recognition software. It may contain grammatical, syntax o r spelling errors. Electronically signed by: Billy Vitale M.D. 01/11/2021 12:49 PM
--- NOTE | 2021-01-11 13:20 | Billing Data ---
Date of Service January 11, 2021 Coding Level of Care Code 21815 Inpt Consult Level 5
[2021-01-11] MEDS: CHOLECALCIFEROL 1,000 UNITS 25 MCG TAB PO SCH (13:53)
[2021-01-11] MEDS: CYANOCOBALAMIN 500 MCG TABLET (VITAMIN B-12) PO SCH (13:53)
--- NOTE | 2021-01-11 14:44 | Pharmacy Report ---
Pharmacy Glycemic Short Note 2 - Date of Service January 11, 2021 - Glycemic Short BSG Results (Last 24 hours): 01/10/21 01/10/21 01/11/21 16:34 20:04 03:39 Glucose POC Glucose 138 H 134 H 328 H* 01/11/21 01/11/21 01/11/21 03:40 04:03 06:36 Glucose 322 H* POC Glucose 366 H* 333 H* 01/11/21 01/11/21 01/11/21 06:39 10:37 11:47 Glucose POC Glucose 329 H* 253 H 220 H 01/11/21 01/11/21 12:47 13:44 Glucose POC Glucose 195 H 173 H OUTPATIENT ANTIDIABETIC REGIMEN: * N/A * A1c: 8.5% ASSESSMENT: * Patient transferred to the ICU overnight with retroperitoneal bleed, developing severe hyperglycemia likely due to acute stress. Previous to this patient was fairly well maintained on 5-10 units of lantus and a moderate stress novolog scale. Pt was started on an insulin infusion this morning. * AM labs show slight AG and elevated BHA. Repeat labs ordered for this afternoon. Discussed with provider, If acidosis has not progressed will attempt insulin infusion transition. * Pt is NPO. PLAN FOR INPATIENT GLYCEMIC CONTROL: * Hold outpatient oral diabetes medications * Basal insulin * Insulin infusion (avg 2.6 units/hr) continues pending repeat labs-> goal 140-180 * Lantus 15 units SQ X1 (if able to transition) * Bolus insulin * NovoLog per scale ACHS or Q6hrs while NPO * Per insulin infusion calculator PLAN FOR DISCHARGE: * TBD
[2021-01-11 16:21] LABS: Hematocrit (blood only) 23.1 % (42-52); Hemoglobin 7.8 g/dL (14.0-18.0); Mean Corpuscular Hemoglobin 29.7 pg (25-34); Mean Corpuscular Volume 87.8 fL (80-100); Mean Platelet Volume 9.4 fL (7.4-10.4); Platelet Count 189 K/uL (130-400); RDW Standard Deviation 55.1 fL (36.4-46.3); Red Blood Count 2.63 M/uL (4.7-6.1); White Blood Count 9.87 K/uL (4.8-10.8)
[2021-01-11 16:31] LABS: Mean Corpuscular Hgb Conc 33.8 g/dL (32-36)
[2021-01-11 16:49] LABS: BUN Creatinine Ratio 9.9 (10-20); Calcium 8.3 mg/dl (8.5-10.1); Creatinine Clr Calc Pharmacy 10.4 ml/min; Est GFR (African American) 11.3 ml/min; Est GFR (Non-African American) 9.8 ml/min; Potassium 4.3 mmol/L (3.5-5.1)
[2021-01-11] MEDS ORDERED: INSULIN GLARGINE SOLOSTAR 100 UNITS/ML 3 ML PEN SC ONE (17:00)
--- NOTE | 2021-01-11 17:15 | Hospitalist Progress Note ---
Date of Service January 11, 2021 delayed entry date of service noted above Assessment & Plan (1) Acute UTI: (2) Weakness: (3) Fall: Plan: per Dr. 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 There is no evidence of myelodysplasia. Patient was started on doxycycline Generalized weakness possible related to acute illness (UTI and Anaplasmosis) Urine cx grew gram negative bacilli-Klebsiella pneumonia On IV rocephin, will transition to p.o. antibiotics once mental status improved Blood cx no growth continue Doxycycline will have PT/ OT re-eval patient Skin tear right elbow Right elbow x-ray: 1. No definite acute fracture or joint effusion of the right elbow. 2. 6 mm calcification which projects posterior to the olecranon. This is indeterminate although could be related to the triceps and could be correlated with clinical evidence for triceps injury. No decrease range of motion currently Consult wound care nurse Received triple ointment abx (4) Anaplasmosis: Plan: CXR: Mild pulmonary edema, trace bilateral pleural effusions CT head: No acute intracranial abnormality Continue doxycycline (5) Metabolic encephalopathy: Plan: Mostly due to acute illness (anaplasmosis and UTI) CT head showed no acute intracranial abnormality Urine cx grew Klebsiella pneumonia Continue monitor closely resolved (6) Atrial fibrillation: Plan: EKG showed Atrial fibrillation on admission with rate control [id number]: 4 Continue IV heparin during hospital course Cardiology on board Does not seem to be good candidate for assisted anticoagulant due to fall risks and confusion Continue carvedilol 6.25mg BID Case discussed with cardiology that recommended anticoagulant with Coumadin 5mg Can be started on p.o. warfarin without bridging with subcutaneous Lovenox on discharge Anticoagulant therapy discussed with daughter and agreed to continue anticoagulant at discharge Not a DOAC candidate given renal failure. She understands the complication by starting on Coumadin such as bleeding (Intracranial hemorrhage, hematuria, GI bleed and even ) Will need to follow up with the coumadin clinic Case discussed again with Cardio today about discontinued Aspirin while taking Coumadin Dr. Shukla would like pt to stay in the hospital until his INR at goal or near therapeutic Called son over the phone to let him know that pt will stay in the hospital until INR at goal Aspirin will be discontinued on discharge 01/11 Retroperitoneal Hemorrhage Hematemesis episode -- sp EGD 01/11: unrevealing -- CT angio abd/pelv: stable rp hemorrhage -- received 2 units pRBC continue to monitor closely heparin, coumadin , ASAdiscontinued (7) Elevated troponin: Plan: Troponin: 0.09. Denies CP. EKG +afib Possible elevated secondary to atrial fibrillation Trop trending down Echo showed no LV wall motion abnormality with EF 55-60% (8) Hyponatremia: Plan: corrected sodium of 133 for glucose of 266. Baseline sodium~132 Monitor BMP (9) CKD (chronic kidney disease) stage 5, GFR less than 15 ml/min: Plan: HD on Saturday schedule (10) Diabetes mellitus, type II: Plan: Most recent Hba1c 8.5 Pt was not on any diabetes med before admission Will continue lifestyles changes for now and check BS daily Lantus and Novolog sliding scale during the hospital course -- BSGs stable (11) HTN (hypertension): Plan: Reports patient had low BP and dizziness at dialysis and was tapered off hydralazine. Son reports his carvedilol was decreased from 25 mg to 6.25 mg twice daily. Continue carvedilol DVT Prophylaxis SCDs Full Code Disposition pendingn Admission and Anticipated Discharge Date Admission Date: January 04, 2021 Subjective ff up for a fib etc events overnight noted transferred to ICU s/p EGD unrevealing CT angio abd/pelvis: stable rp hematoma seen resting in bed, comfortable, in good spirits states he feels ok overall no chest pain, dyspnea, palpitations, dizziness no abdominal pain, nausea/vomiting, melena/hematochezia no fever/chills no other symptoms Review of Systems Review of Systems: all noted and negative except for above Physical Exam Physical Exam: General- oriented x 2, not in distress, speaks in sentences with no effort or accessory muscle use Head- atraumatic Eyes- PERRL, EOMI, anicteric ENT- oropharynx clear Neck- supple, no JVD, no adenopathy, no thyromegaly; carotids +2/2, no bruits appreciated Lungs- clear to auscultation bilaterally, no rales/wheezes Heart- normal rate, irregularly irregular rhythm; no murmur, no gallop, no rub appreciated Abdomen- normal bowel sounds, nondistended, soft, nontender, no masses or hepatosplenomegaly Extremities- no pretibial edema, no calf tenderness; peripheral pulses intact Neuro- alert, oriented x 3; CN 2-12 grossly intact; motor 5/5 bilaterally;sensation 100% on all extremities; no other gross focal neurologic deficits Skin- warm & dry Results & Data Results & Data ([facility]) Vital Signs (Past 12 Hours) Vital Signs Temp Pulse Pulse Pulse Resp BP BP 01/11/21 16:41 60 01/11/21 16:00 36.5 C 65 19 148/66 H 01/11/21 15:00 36.4 C L 72 17 152/63 H 01/11/21 14:30 36.4 C L 01/11/21 14:29 36.4 C L 80 16 138/66 01/11/21 13:30 36.4 C L 75 15 128/61 01/11/21 13:00 36.6 C 68 9 L 122/95 01/11/21 12:44 36.5 C 73 16 140/67 01/11/21 12:02 71 16 107/52 L 01/11/21 11:45 73 16 107/50 L 01/11/21 11:29 78 16 102/66 01/11/21 11:10 36.3 C L 78 78 18 143/65 H 01/11/21 10:50 36.6 C 76 13 01/11/21 09:22 36.2 C L 84 16 156/72 H 01/11/21 07:33 36.5 C 71 14 147/58 H 01/11/21 07:05 35.6 C L 01/11/21 07:03 35.5 C L 80 16 147/65 H 01/11/21 07:00 73 01/11/21 06:50 35.5 C L 71 17 133/66 01/11/21 06:48 35.5 C L 78 17 150/72 H 01/11/21 06:36 35.5 C L 85 17 124/63 01/11/21 06:31 36.4 C L 71 16 89/56 L 01/11/21 05:35 74 114/70 01/11/21 05:20 79 17 99/50 L BP Pulse Ox 01/11/21 16:41 01/11/21 16:00 100 01/11/21 15:00 99 01/11/21 14:30 01/11/21 14:29 100 01/11/21 13:30 94 01/11/21 13:00 97 01/11/21 12:44 99 01/11/21 12:02 98 01/11/21 11:45 99 01/11/21 11:29 97 01/11/21 11:10 100 01/11/21 10:50 121/64 99 01/11/21 09:22 95 01/11/21 07:33 100 01/11/21 07:05 01/11/21 07:03 100 01/11/21 07:00 01/11/21 06:50 100 01/11/21 06:48 96 01/11/21 06:36 100 01/11/21 06:31 100 01/11/21 05:35 100 all noted and reviewed including below 01/11/21 05:20 100 all noted and reviewed including below (1) Diabetes mellitus, type II Diabetes mellitus complication status: without complication Diabetes mellitus assisted insulin use: unspecified assisted insulin use status Qualified Code(s): E11.9 - Type 2 diabetes mellitus without complications
--- NOTE | 2021-01-11 18:12 | Nephrology Progress Note ---
Date of Service January 11, 2021 Assessment & Plan (1) ESRD (end stage renal disease) on dialysis: Plan: MWF in center HD as OP >> last HD 01/09 with SBP maintained and UF to 1.5L. chemistries and volume status acceptable despite pRBC and events overnight. given active clinical events, will observe today -next HD 01/12 (2) Anemia: Plan: multifactorial anemia, including of ESRD and now w/ retroperitoneal bleed> getting iron load and will intensify epo on HD -pt also with frequent falls prior to admission > LT AC no longer planned given recent events Admission and Anticipated Discharge Date Admission Date: January 04, 2021 Subjective Had coffee-ground emesis with systolic blood pressures in the 70s overnight along with intermittent acutely worsening back pain; hemoglobin dropped two- points: Found to have active retroperitoneal bleed. Moved to ICU transfused 2 units PRBC anticoagulation reversed. EGD unremarkable. On 1.5 L oxygen with maintained blood pressures systolic later in the day and hemoglobin at 7.8 late this afternoon. Denies back pain or shortness of breath. Remains n.p.o. Review of Systems Review of Systems: All systems reviewed & are unremarkable except as noted in Subjective Physical Exam Constitutional: well developed and well nourished Eyes: EOM intact bilaterally ENMT: Ears: no external ear abnormality Nose: no external nose abnormality Mouth: + dry oral mucous membranes Neck: no nuchal rigidity Respiratory: normal respiratory effort Auscultation: + diminished lung sounds Cardiovascular: Rate/Rhythm: regular rate and regular rhythm Extremities: no edema Gastrointestinal (Abdomen): Inspection/Auscultation: normal bowel sounds Percussion/Palpation: abdomen soft; abdomen nontender Musculoskeletal: Extremities: + abnormal strength (Generalized weakness) Skin: no rashes, warm and dry Psychiatric: Orientation: alert and oriented x 3 Insight: + limited insight Judgement: + limited judgement Results & Data ([facility]) Vital Signs (Past 12 Hours) Vital Signs Temp Pulse Pulse Pulse Resp BP BP 01/11/21 16:41 60 01/11/21 16:00 36.5 C 65 19 148/66 H 01/11/21 15:00 36.4 C L 72 17 152/63 H 01/11/21 14:30 36.4 C L 01/11/21 14:29 36.4 C L 80 16 138/66 01/11/21 13:30 36.4 C L 75 15 128/61 01/11/21 13:00 36.6 C 68 9 L 122/95 01/11/21 12:44 36.5 C 73 16 140/67 01/11/21 12:02 71 16 107/52 L 01/11/21 11:45 73 16 107/50 L 01/11/21 11:29 78 16 102/66 01/11/21 11:10 36.3 C L 78 78 18 143/65 H 01/11/21 10:50 36.6 C 76 13 01/11/21 09:22 36.2 C L 84 16 156/72 H 01/11/21 07:33 36.5 C 71 14 147/58 H 01/11/21 07:05 35.6 C L 01/11/21 07:03 35.5 C L 80 16 147/65 H 01/11/21 07:00 73 01/11/21 06:50 35.5 C L 71 17 133/66 01/11/21 06:48 35.5 C L 78 17 150/72 H 01/11/21 06:36 35.5 C L 85 17 124/63 01/11/21 06:31 36.4 C L 71 16 89/56 L BP Pulse Ox 01/11/21 16:41 01/11/21 16:00 100 01/11/21 15:00 99 01/11/21 14:30 01/11/21 14:29 100 01/11/21 13:30 94 01/11/21 13:00 97 01/11/21 12:44 99 01/11/21 12:02 98 01/11/21 11:45 99 01/11/21 11:29 97 01/11/21 11:10 100 01/11/21 10:50 121/64 99 01/11/21 09:22 95 01/11/21 07:33 100 01/11/21 07:05 01/11/21 07:03 100 01/11/21 07:00 01/11/21 06:50 100 01/11/21 06:48 96 01/11/21 06:36 100 01/11/21 06:31 100 Laboratory Results 01/11/21 16:11 01/11/21 16:[address] angio abdomen pelvis 11:30 AM compared to 0300 Small pleural effusions with dependent bibasilar groundglass and consolidative opacities suggestive of atelectasis. No pneumatosis or pneumoperitoneum. Moderate cardiomegaly with small pericardial effusion. The spleen, moderately atrophic pancreas, gallbladder and liver appear unremarkable. Scattered calcifications of the liver and spleen. Bilateral adrenal gland thickening suggestive of hyperplasia is unchanged. 3 mm calculus of the interpolar right kidney is unchanged. No ureteral calculi or hydronephrosis. Unremarkable left kidney. Mild urinary bladder wall thickening with penis pump. Mild prostamegaly. Small fat filled inguinal hernias. Atherosclerosis of the aorta without aneurysm. No adenopathy. Duodenal diverticulum. No bowel obstruction or bowel wall thickening. Moderate fecal retention of the rectum. A rectal lead has been placed in the interval. Colonic diverticulosis without acute diverticulitis. Large acute retroperitoneal hematoma measures approximately 8.0 x 12 x 25 cm in AP, transverse and cranial caudal dimensions extending from the level of L1 involving the psoas musculature and posterior pararenal space extending into the pelvis, iliacus and iliopsoas musculature. This displaces the adjacent descending colon. Hemorrhage tracks along the left pericolic gutter. There is no appreciable change from comparison. No evidence of active extravasation. No acute fracture. Degenerative changes of the spine, pelvis and hips. CTA: Moderate atherosclerotic plaque of the abdominal aorta and branch vessels. No abdominal aortic aneurysm or dissection. There is approximately 50% luminal narrowing at the proximal celiac trunk and superior mesenteric artery secondary to atherosclerotic plaque. The renal arteries are patent bilaterally. Duplicated right renal arteries. Patent inferior mesenteric artery. The iliac arteries are patent. IMPRESSION: 1. Stable large acute left-sided retroperitoneal hematoma measuring up to a pproximately 25 cm extending into the left hemipelvis redemonstrated. No evidence of active extravasation. 2. Cardiomegaly with moderate atherosclerotic vascular disease. There is multifocal luminal narrowing involving aortic branch vessels measuring up to approximately 50%. No high-grade stenosis, arterial occlusion, dissection or aneurysm. 3. Colonic diverticulosis. 4. Urinary bladder wall thickening with perivesicular stranding. Correlate with urinalysis to exclude cystitis. 5. Nonobstructing right nephrolithiasis. 6. Small pleural effusions. 7. Additional findings as above. (1) Anemia Anemia type: unspecified type Qualified Code(s): D64.9 - Anemia, unspecified
[2021-01-11 22:43] LABS: Hematocrit (blood only) 21.3 % (42-52); Hemoglobin 7.3 g/dL (14.0-18.0)
[2021-01-12] MEDS: PANTOprazole 40 MG in DEXTROSE 5% 100 ML IV SCH ×2 (01:32→06:12)
[2021-01-12] MEDS: INSULIN ASPART 100 UNITS/ML 3 ML PEN SC SCH ×2 (06:13→18:43)
[2021-01-12 09:24] LABS: Basophils # (auto) 0.04 K/uL (0-0.2); Basophils % (auto) 0.4 %; Eosinophils # (auto) 0.06 K/uL (0-0.5); Eosinophils % (auto) 0.7 %; Hematocrit (blood only) 23.5 % (42-52); Hemoglobin 7.9 g/dL (14.0-18.0); Immature Granulocytes # (auto) 0.15 K/uL (0.00-0.02); Immature Granulocytes % (auto) 1.6 %; Lymphocytes # (auto) 1.97 K/uL (1.2-3.4); Lymphocytes % (auto) 21.6 %; Mean Corpuscular Hemoglobin 29.9 pg (25-34); Mean Corpuscular Hgb Conc 33.6 g/dL (32-36); Monocytes # (auto) 1.26 K/uL (0.11-0.59); Monocytes % (auto) 13.8 %; Neutrophils # (auto) 5.63 K/uL (1.4-6.5); Neutrophils % (auto) 61.9 %; Platelet Count 211 K/uL (130-400); RDW Coefficient of Variation 19.1 % (11.5-14.5); RDW Standard Deviation 57.6 fL (36.4-46.3); Red Blood Count 2.64 M/uL (4.7-6.1); White Blood Count 9.11 K/uL (4.8-10.8)
[2021-01-12 09:48] LABS: Anisocytosis Present
[2021-01-12 10:07] LABS: Albumin Globulin Ratio 0.5 (0.9-2); Albumin Level 2.1 gm/dl (3.4-5.0); BUN Creatinine Ratio 9.3 (10-20); Bilirubin,Total 0.6 mg/dl (0.2-1); Calcium 8.4 mg/dl (8.5-10.1); Creatinine Clr Calc Pharmacy 9.1 ml/min; Est GFR (African American) 9.6 ml/min; Est GFR (Non-African American) 8.3 ml/min; Globulin 3.9 gm/dl (2.5-4.0); Potassium 4.1 mmol/L (3.5-5.1)
[2021-01-12] MEDS: LIDOCAINE 5% 1 PATCH TD SCH (11:11)
[2021-01-12] MEDS: CYANOCOBALAMIN 500 MCG TABLET (VITAMIN B-12) PO SCH (11:11)
[2021-01-12] MEDS: CHOLECALCIFEROL 1,000 UNITS 25 MCG TAB PO SCH (11:11)
[2021-01-12] MEDS: DOXYCYCLINE HYCLATE 100 MG in DEXTROSE 5% 100 ML IV SCH ×2 (11:12→20:58)
[2021-01-12] MEDS ORDERED: IRON SUCROSE 100 MG in SYRINGE 0 ML IV ONE (14:40)
[2021-01-12] MEDS ORDERED: SODIUM CHLORIDE 0.9% 1000ML 1,000 ML IV PRN (14:40)
[2021-01-12] MEDS ORDERED: EPOETIN ALFA 20,000 UNITS/ML VIAL IV ONE (14:40)
[2021-01-12] MEDS ORDERED: EPOETIN ALFA 24,000 UNITS in SYRINGE 0 ML IV SCH (14:40)
--- NOTE | 2021-01-12 14:44 | Nephrology Progress Note ---
Date of Service January 12, 2021 Assessment & Plan (1) ESRD (end stage renal disease) on dialysis: Plan: MWF in center HD as OP >> last HD 01/09 with SBP maintained and UF to 1.5L. chemistries and volume status acceptable despite pRBC and events with retroperitoneal bleed. -for gentle dialysis today > no heparin, up to 500 mL off as tolerated -d/w Dr Ruiz and reasonable to run upstairs in dialysis unit -next HD 01/14 or as clinical needs dictate (2) Anemia: Plan: multifactorial anemia, including of ESRD and now w/ retroperitoneal bleed> getting iron load and will intensify epo on HD -pt also with frequent falls prior to admission > LT AC no longer planned given recent events Admission and Anticipated Discharge Date Admission Date: January 04, 2021 Subjective Denies shortness of breath or back pain. Denies voiding concerns and w/ 1.1L UOP. Remains n.p.o. no overnight issues clinically EGD yesterday w/o bleeding evidence. Review of Systems Review of Systems: All systems reviewed & are unremarkable except as noted in Subjective Physical Exam Constitutional: well developed, + thin and cooperative Eyes: EOM intact bilaterally ENMT: Ears: no external ear abnormality Nose: no external nose abnormality Mouth: + dry oral mucous membranes Neck: no nuchal rigidity Respiratory: normal respiratory effort Auscultation: + diminished lung sounds Cardiovascular: Rate/Rhythm: regular rate and regular rhythm Extremities: no edema Gastrointestinal (Abdomen): Inspection/Auscultation: normal bowel sounds Percussion/Palpation: abdomen soft; abdomen nontender Musculoskeletal: Extremities: + abnormal strength (Generalized weakness) Skin: no rashes, warm and dry Psychiatric: Orientation: alert and oriented x 3 Insight: + limited insight Judgement: + limited judgement Results & Data ([facility]) Vital Signs (Past 12 Hours) Vital Signs Temp Pulse Pulse Resp BP BP Pulse Ox 01/12/21 11:00 36.8 C 67 14 141/61 H 98 01/12/21 09:00 36.7 C 72 27 H 96 01/12/21 08:30 36.8 C 72 21 96 01/12/21 08:00 36.7 C 74 17 143/62 H 93 01/12/21 07:30 36.6 C 65 16 93 01/12/21 07:00 36.6 C 73 20 99 01/12/21 04:22 36.6 C 74 16 159/67 H 100 Laboratory Results 01/12/21 09:13 01/12/21 09:13 (1) Anemia Anemia type: unspecified type Qualified Code(s): D64.9 - Anemia, unspecified
--- NOTE | 2021-01-12 19:45 | Hospitalist Progress Note ---
Date of Service January 12, 2021 Assessment & Plan (1) Acute UTI: (2) Weakness: (3) Fall: Plan: per Dr. 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 There is no evidence of myelodysplasia. Patient was started on doxycycline Generalized weakness possible related to acute illness (UTI and Anaplasmosis) Urine cx grew gram negative bacilli-Klebsiella pneumonia On IV rocephin, will transition to p.o. antibiotics once mental status improved Blood cx no growth continue Doxycycline will have PT/ OT re-eval patient Skin tear right elbow Right elbow x-ray: 1. No definite acute fracture or joint effusion of the right elbow. 2. 6 mm calcification which projects posterior to the olecranon. This is indeterminate although could be related to the triceps and could be correlated with clinical evidence for triceps injury. No decrease range of motion currently Consult wound care nurse Received triple ointment abx (4) Anaplasmosis: Plan: CXR: Mild pulmonary edema, trace bilateral pleural effusions CT head: No acute intracranial abnormality Continue doxycycline (5) Metabolic encephalopathy: Plan: Mostly due to acute illness (anaplasmosis and UTI) CT head showed no acute intracranial abnormality Urine cx grew Klebsiella pneumonia Continue monitor closely resolved (6) Atrial fibrillation: Plan: EKG showed Atrial fibrillation on admission with rate control [id number]: 4 Continue IV heparin during hospital course Cardiology on board Does not seem to be good candidate for continuous churn buttermaker anticoagulant due to fall risks and confusion Continue carvedilol 6.25mg BID Case discussed with cardiology that recommended anticoagulant with Coumadin 5mg Can be started on p.o. warfarin without bridging with subcutaneous Lovenox on discharge Anticoagulant therapy discussed with daughter and agreed to continue anticoagulant at discharge Not a DOAC candidate given renal failure. She understands the complication by starting on Coumadin such as bleeding (Intracranial hemorrhage, hematuria, GI bleed and even ) Will need to follow up with the coumadin clinic Case discussed again with Cardio today about discontinued Aspirin while taking Coumadin Dr. Shukla would like pt to stay in the hospital until his INR at goal or near therapeutic Called son over the phone to let him know that pt will stay in the hospital until INR at goal Aspirin will be discontinued on discharge 01/12 Retroperitoneal Hemorrhage Hematemesis episode -- sp EGD 01/11: unrevealing -- CT angio abd/pelv: stable rp hemorrhage -- received 2 units pRBC -- Hg stable at 7.9 denies abdominal or back pain -- continue to monitor closely heparin, coumadin , ASAdiscontinued (7) Retroperitoneal bleeding: (8) Elevated troponin: Plan: Troponin: 0.09. Denies CP. EKG +afib Possible elevated secondary to atrial fibrillation Trop trending down Echo showed no LV wall motion abnormality with EF 55-60% (9) Hyponatremia: Plan: corrected sodium of 133 for glucose of 266. Baseline sodium~132 Monitor BMP (10) CKD (chronic kidney disease) stage 5, GFR less than 15 ml/min: Plan: HD on Saturday schedule (11) Diabetes mellitus, type II: Plan: Most recent Hba1c 8.5 Pt was not on any diabetes med before admission Will continue lifestyles changes for now and check BS daily Lantus and Novolog sliding scale during the hospital course -- BSGs stable (12) HTN (hypertension): Plan: Reports patient had low BP and dizziness at dialysis and was tapered off hydralazine. Son reports his carvedilol was decreased from 25 mg to 6.25 mg twice daily. Continue carvedilol DVT Prophylaxis SCDs Full Code Disposition pendingn Admission and Anticipated Discharge Date Admission Date: January 04, 2021 Subjective ff up for a fib, retroperitoneal hematoma, etc seen resting in bed, HD in progress alert, oriented, answers questions appropriately in good spirits states he feels fine overall denies abdominal pain, flank pain, back pain no chest pain, dyspnea, palpitations, dizziness no other symptoms Review of Systems Review of Systems: all noted and negative except for above Physical Exam Physical Exam: General- oriented x 2, not in distress, speaks in sentences with no effort or accessory muscle use Eyes- anicteric Neck- no JVD Lungs- clear breath sounds bilaterally, no rales/wheezes Heart- normal rate, regular rhythm; no murmurs Abdomen- normal bowel sounds, nondistended, soft, nontender Extremities- no pretibial edema, no calf tenderness Neuro- alert, oriented x 2; no gross focal neurologic deficits Skin- warm & dry Results & Data Results & Data ([facility]) Vital Signs (Past 12 Hours) Vital Signs Temp Pulse Resp BP Pulse Ox 01/12/21 19:20 77 18 155/88 H 93 01/12/21 14:45 36.8 C 66 15 96 01/12/21 14:24 36.8 C 66 18 165/72 H 96 01/12/21 11:00 36.8 C 67 14 141/61 H 98 01/12/21 09:00 36.7 C 72 27 H 96 01/12/21 08:30 36.8 C 72 21 96 01/12/21 08:00 36.7 C 74 17 143/62 H 93 all noted and reviewed including below (1) Diabetes mellitus, type II Diabetes mellitus complication status: without complication Diabetes mellitus fci insulin use: unspecified continuous churn buttermaker insulin use status Qualified Code(s): E11.9 - Type 2 diabetes mellitus without complications
[2021-01-12] MEDS ORDERED: INSULIN GLARGINE SOLOSTAR 100 UNITS/ML 3 ML PEN SC SCH (21:00)
[2021-01-13] MEDS ORDERED: DEXTROSE 50% 50 ML SYRINGE IV PRN (04:30)
[2021-01-13] MEDS ORDERED: GLUCOSE 10 TABS/TUBE PO PRN (04:30)
[2021-01-13] MEDS ORDERED: GLUCOSE 40% GEL 15 GM TUBE PO PRN (04:30)
[2021-01-13] MEDS ORDERED: GLUCAGON FOR INJ 1 MG VIAL IM PRN (04:30)
[2021-01-13] MEDS ORDERED: CARBOHYDRATES FOR HYPOGLYCEMIA PO PRN (04:30)
[2021-01-13 04:55] LABS: Basophils # (auto) 0.03 K/uL (0-0.2); Basophils % (auto) 0.4 %; Eosinophils # (auto) 0.03 K/uL (0-0.5); Eosinophils % (auto) 0.4 %; Hematocrit (blood only) 21.8 % (42-52); Hemoglobin 7.1 g/dL (14.0-18.0); Immature Granulocytes # (auto) 0.25 K/uL (0.00-0.02); Immature Granulocytes % (auto) 3.6 %; Lymphocytes # (auto) 1.64 K/uL (1.2-3.4); Lymphocytes % (auto) 23.9 %; Mean Corpuscular Hemoglobin 29.8 pg (25-34); Mean Corpuscular Hgb Conc 32.6 g/dL (32-36); Mean Corpuscular Volume 91.6 fL (80-100); Mean Platelet Volume 8.7 fL (7.4-10.4); Monocytes # (auto) 1.12 K/uL (0.11-0.59); Monocytes % (auto) 16.3 %; Neutrophils % (auto) 55.4 %; Platelet Count 197 K/uL (130-400); RDW Coefficient of Variation 19.7 % (11.5-14.5); RDW Standard Deviation 60.5 fL (36.4-46.3); Red Blood Count 2.38 M/uL (4.7-6.1); White Blood Count 6.87 K/uL (4.8-10.8)
[2021-01-13 05:21] LABS: Albumin Globulin Ratio 0.5 (0.9-2); BUN Creatinine Ratio 6.4 (10-20); Bilirubin,Total 0.6 mg/dl (0.2-1); Calcium 7.9 mg/dl (8.5-10.1); Creatinine Clr Calc Pharmacy 16.3 ml/min; Est GFR (African American) 19.5 ml/min; Est GFR (Non-African American) 16.8 ml/min; Globulin 3.7 gm/dl (2.5-4.0); Potassium 3.8 mmol/L (3.5-5.1); Total Protein 5.7 gm/dl (6.4-8.2)
[2021-01-13 06:00] LABS: Anisocytosis Present
[2021-01-13] MEDS ORDERED: INSULIN ASPART 100 UNITS/ML 3 ML PEN SC SCH (07:30)
[2021-01-13] MEDS: INSULIN ASPART 100 UNITS/ML 3 ML PEN SC SCH ×5 (08:06→21:03)
[2021-01-13] MEDS: CYANOCOBALAMIN 500 MCG TABLET (VITAMIN B-12) PO SCH (08:06)
[2021-01-13] MEDS: CHOLECALCIFEROL 1,000 UNITS 25 MCG TAB PO SCH (08:06)
[2021-01-13] MEDS: DOXYCYCLINE HYCLATE 100 MG in DEXTROSE 5% 100 ML IV SCH (08:07)
[2021-01-13] MEDS: LIDOCAINE 5% 1 PATCH TD SCH (08:12)
[2021-01-13] MEDS ORDERED: SODIUM CHLORIDE 0.9% 250 ML IV PRN (08:50)
--- NOTE | 2021-01-13 09:48 | CT Scan Report ---
ABDOMEN AND PELVIS CT WITHOUT CONTRAST CT DOSE: 393.40 mGy.cm HISTORY: Anemia with acute retroperitoneal hematoma. ANEMIA, FF UP RETROPERITONEAL HEMORRHAGE TECHNIQUE: Multiaxial CT images of the abdomen and pelvis were performed without contrast. A dose lo wering technique was utilized adhering to the principles of ALARA. COMPARISON STUDY: None. FINDINGS: Unchanged small pleural effusions with dependent bibasilar opacities, progressed from left lung base suggestive of probable atelectasis. No pneumatosis or pneumoperitoneum. Moderate cardiomegaly with sm all pericardial effusion. The unenhanced spleen, moderately atrophic pancreas, and liver appear unrem arkable. Vicarious excretion of contrast within the gallbladder. Scattered calcifications of the live r and spleen. Bilateral adrenal gland thickening suggestive of hyperplasia is unchanged. 3 mm calculu s of the interpolar right kidney is unchanged. No ureteral calculi or hydronephrosis. Unremarkable le ft kidney. Mild urinary bladder wall thickening with penis pump. Mild prostamegaly. Small fat filled inguinal hernias. Atherosclerosis of the aorta without aneurysm. No adenopathy. Duodenal diverticulum. No bowel obstruction or bowel wall thickening. Moderate fecal retention of the rectum. Colonic diverticulosis without acute diverticulitis. Large acute retroperitoneal hematoma me asures approximately 12.0 x 7.0 x 22 cm in transverse, AP and cranial caudal dimensions, previously m easured at 12 x 8 x 25 cm is again noted extending from the level of L1 involving the psoas musculatu re and posterior pararenal space extending into the pelvis, iliacus and iliopsoas musculature. This d isplaces the adjacent descending colon. Hemorrhage tracks along the left pericolic gutter. No acute f racture. Degenerative changes of the spine, pelvis and hips. IMPRESSION: 1. Stable to mildly decreased size of the large acute left-sided retroperitoneal hematoma measures up to 22 cm in length extending into the left hemipelvis. 2. No bowel obstruction or bowel wall thickening. 3. Colonic diverticulosis. 4. Nonobstructing right nephrolithiasis. 5. Small pleural effusions with left greater than right bibasilar consolidation suggestive of probabl e atelectasis. 6. Additional findings as above. ACT 112: Negative or not required by law. The above report was generated using voice recognition software. It may contain grammatical, syntax o r spelling errors. Electronically signed by: Billy Vitale M.D. 01/13/2021 9:47 AM
--- NOTE | 2021-01-13 09:48 | Cardiology Progress Note ---
Date of Service January 13, 2021 Assessment & Plan (1) Atrial fibrillation: (2) Acute UTI: (3) Elevated troponin: (4) Fall: (5) Upper GI bleed: (6) Ambulatory dysfunction: (7) Diabetes mellitus, type II: (8) HTN (hypertension): (9) Hyperlipidemia: (10) Retroperitoneal bleed: Plan: The patient is requiring another blood transfusion today due to low hemoglobin. He is going to have a follow-up CT today for his retroperitoneal bleed. He is off of all anticoagulation. He remained stable in a rate controlled atrial fibrillation. Admission and Anticipated Discharge Date Admission Date: January 04, 2021 Subjective The patient is resting comfortably. No new cardiac problems overnight. Review of Systems Review of Systems: Not obtainable Physical Exam Physical Exam: General: no acute distress and stated age Head: normocephalic, no masses, lesions, tenderness or abnormalities Eyes: conjunctiva are pink and non-injected, sclera clear Neck: supple, no adenopathy, no bruits, normal jugular venous pulse, no hepatojugular reflux Chest: normal shape and normal respiratory effort Lungs: clear to auscultation and percussion Cardiac Exam: - irregular rate & rhythm, no murmurs gallops or rubs - normal S1, normal S2 Pulses: 2(+) throughout Abdomen: abdomen soft, non-tender, no abnormal masses and no hepatosplenomegaly Musculoskeletal: no gait disturbance, no joint inflammation, no deforming arthritis Extremities: no edema and no cyanosis Neuro: grossly normal exam Results & Data ([facility]) Vital Signs (Past 12 Hours) Vital Signs Temp Pulse Pulse Resp BP BP Pulse Ox 01/13/21 09:34 36.9 C 70 20 139/95 95 01/13/21 08:00 72 01/13/21 07:00 36.9 C 74 18 144/58 H 94 01/13/21 06:24 70 16 144/58 H 94 01/13/21 05:30 75 18 127/53 L 93 01/13/21 04:27 36.4 C L 77 12 149/60 H 95 01/13/21 03:49 76 15 129/54 L 94 01/13/21 02:00 78 15 130/57 L 96 01/13/21 01:00 73 17 145/60 H 96 01/13/21 00:00 74 23 135/53 L 96 01/12/21 23:38 36.4 C L 75 18 131/68 93 01/12/21 22:00 73 15 143/58 H 93 Laboratory Results Laboratory Results - last 24 hr 01/11/21 01/12/21 01/12/21 04:03 09:13 09:13 WBC RBC Hgb Hct MCV MCH MCHC RDW Std Deviation RDW Coeff of Juma Plt Count MPV Immature Gran % (Auto) Neut % (Auto) Lymph % (Auto) Frio % (Auto) Eos % (Auto) Baso % (Auto) Neut # (Auto) Lymph # (Auto) Frio # (Auto) Eos # (Auto) Baso # (Auto) Immature Gran # (Auto) Anisocytosis Present Sodium 133 L Potassium 4.1 Chloride 98 Carbon Dioxide 24 Anion Gap 11.0 BUN 56 H Creatinine 6.03 H* D Est Cr Clr Drug Dosing 9.1 Est GFR ( Amer) 9.6 Est GFR (Non-Af Amer) 8.3 BUN/Creatinine Ratio 9.3 L Glucose 92 POC Glucose Calcium 8.4 L Total Bilirubin 0.6 AST 17 ALT 17 Alkaline Phosphatase 83 Total Protein 6.0 L Albumin 2.1 L Globulin 3.9 Albumin/Globulin Ratio 0.5 L Blood Type O Negative Antibody Screen NEGATIVE Crossmatch See Detail 01/12/21 01/12/21 01/12/21 12:55 20:21 23:08 WBC RBC Hgb Hct MCV MCH MCHC RDW Std Deviation RDW Coeff of Juma Plt Count MPV Immature Gran % (Auto) Neut % (Auto) Lymph % (Auto) Frio % (Auto) Eos % (Auto) Baso % (Auto) Neut # (Auto) Lymph # (Auto) Frio # (Auto) Eos # (Auto) Baso # (Auto) Immature Gran # (Auto) Anisocytosis Sodium Potassium Chloride Carbon Dioxide Anion Gap BUN Creatinine Est Cr Clr Drug Dosing Est GFR ( Amer) Est GFR (Non-Af Amer) BUN/Creatinine Ratio Glucose POC Glucose 118 H 81 97 Calcium Total Bilirubin AST ALT Alkaline Phosphatase Total Protein Albumin Globulin Albumin/Globulin Ratio Blood Type Antibody Screen Crossmatch 01/13/21 01/13/21 01/13/21 04:43 04:43 07:09 WBC 6.87 RBC 2.38 L Hgb 7.1 L Hct 21.8 L MCV 91.6 MCH 29.8 MCHC 32.6 RDW Std Deviation 60.5 H RDW Coeff of Juma 19.7 H Plt Count 197 MPV 8.7 Immature Gran % (Auto) 3.6 Neut % (Auto) 55.4 Lymph % (Auto) 23.9 Frio % (Auto) 16.3 Eos % (Auto) 0.4 Baso % (Auto) 0.4 Neut # (Auto) 3.80 Lymph # (Auto) 1.64 Frio # (Auto) 1.12 H Eos # (Auto) 0.03 Baso # (Auto) 0.03 Immature Gran # (Auto) 0.25 H Anisocytosis Present Sodium 137 Potassium 3.8 Chloride 102 Carbon Dioxide 29 Anion Gap 6.0 BUN 22 H D Creatinine 3.36 H D Est Cr Clr Drug Dosing 16.3 Est GFR ( Amer) 19.5 Est GFR (Non-Af Amer) 16.8 BUN/Creatinine Ratio 6.4 L Glucose 75 POC Glucose 89 Calcium 7.9 L Total Bilirubin 0.6 AST 21 ALT 18 Alkaline Phosphatase 80 Total Protein 5.7 L Albumin 2.0 L Globulin 3.7 Albumin/Globulin Ratio 0.5 L Blood Type Antibody Screen Crossmatch Medications Administered Current Inpatient Medications Acetaminophen (Acetaminophen 325 Mg Tab) 650 mg PO Q4H PRN PRN Reason: Pain or Fever Stop: 02/03/21 20:01 Last Admin: 01/10/21 22:12 Dose: 650 mg Documented by: Acetaminophen (Acetaminophen 1000 Mg/100 Ml Iv) 1,000 mg IV Q8H PRN PRN Reason: pain not relieved by po meds Stop: 01/14/21 06:29 Aspirin (Aspirin 81 Mg Ectab) [facility] [place] Stop: 02/04/21 08:59 Last Admin: 01/10/21 09:04 Dose: 81 mg Documented by: Carvedilol (Carvedilol 6.25 Mg Tab) 6.25 mg PO BID [facility] Stop: 02/03/21 20:59 Last Admin: 01/10/21 22:13 Dose: 6.25 mg Documented by: Cyanocobalamin (Cyanocobalamin 500 Mcg Tablet (Vitamin B-12)) 1,000 mcg PO QAM [facility] Stop: 02/04/21 08:59 Last Admin: 01/13/21 08:06 Dose: 1,000 mcg Documented by: Dextrose (Dextrose 50% 50 Ml Syringe) 25 - 50 ml IV UD PRN; Protocol PRN Reason: Hypoglycemia Protocol Stop: 02/12/21 04:29 Doxycycline Hyclate (Doxycycline Hyclate 100 Mg Cap) 100 mg PO BID [facility] Stop: 01/27/21 20:59 Furosemide (Furosemide 40 Mg Tab) 40 mg PO Q48H [place] Stop: 02/04/21 08:59 Last Admin: 01/09/21 09:05 Dose: 40 mg Documented by: Glucagon (Glucagon For Inj 1 Mg Vial) 1 mg IM UD PRN; Protocol PRN Reason: Hypoglycemia Protocol Stop: 02/12/21 04:29 Glucose (Glucose 40% Gel 15 Gm Tube) 15 - 30 gm PO UD PRN; Protocol PRN Reason: Hypoglycemia Protocol Stop: 02/12/21 04:29 Glucose (Glucose 10 Tabs/Tube) 4 - 8 tabs PO UD PRN; Protocol PRN Reason: Hypoglycemia Protocol Stop: 02/12/21 04:29 Promethazine HCl 6.25 mg/ (Sodium Chloride) 50.25 mls @ 201 mls/hr IV Q6H PRN PRN Reason: Nausea And Vomiting Stop: 02/10/21 03:48 Sodium Chloride (Nss) 250 mls @ 15 mls/hr IV .[id number] PRN PRN Reason: For Transfusion Stop: 01/13/21 18:50 Insulin Aspart (Insulin Aspart 100 Units/Ml 3 Ml Pen) 0 units SC ACHS [facility] Stop: 02/12/21 07:29 Last Admin: 01/13/21 08:06 Dose: Not Given Documented by: Insulin Glargine (Insulin Glargine Solostar 100 Units/Ml 3 Ml Pen) 5 units SC HS [facility] Stop: 02/11/21 20:59 Last Admin: 01/12/21 20:59 Dose: 5 units Documented by: Lidocaine (Lidocaine 5% 1 Patch) 1 patch TD QAM [facility] Stop: 02/10/21 06:29 Last Admin: 01/13/21 08:12 Dose: Not Given Documented by: Miscellaneous (Remove Lidoderm Patch) 1 ea N/A DAILY@2100 [facility] Stop: 02/10/21 20:59 Last Admin: 01/12/21 21:00 Dose: 1 ea Documented by: Miscellaneous (Carbohydrates For Hypoglycemia ) 15 - 30 gm PO UD PRN PRN Reason: Hypoglycemia Treatment Stop: 02/12/21 04:29 Miscellaneous Information (Pharmacy Glycemic Mgmt Consult) 1 ea N/A UD PRN PRN Reason: Consult Stop: 02/10/21 07:53 Polyethylene Glycol (Polyethylene (Miralax) 17 Gm Pack) 17 gm PO DAILY PRN PRN Reason: Constipation Stop: 02/03/21 20:01 Tramadol HCl (Tramadol Hcl 50 Mg Tablet) 25 mg PO Q4H PRN PRN Reason: Pain Stop: 02/10/21 06:28 Vitamin D (Cholecalciferol 1,000 Units 25 Mcg Tab) [facility] [place] Stop: 02/04/21 08:59 Last Admin: 01/13/21 08:06 Dose: 2,000 units Documented by: (1) Diabetes mellitus, type II Diabetes mellitus complication status: without complication Diabetes mellitus intermediate manager insulin use: unspecified intermediate manager insulin use status Qualified Code(s): E11.9 - Type 2 diabetes mellitus without complications
--- NOTE | 2021-01-13 11:37 | Pharmacy Report ---
Pharmacy Glycemic Short Note 2 - Date of Service January 13, 2021 - Glycemic Short BSG Results (Last 24 hours): 01/12/21 01/12/21 01/12/21 12:55 20:21 23:08 Glucose POC Glucose 118 H 81 97 01/13/21 01/13/21 01/13/21 04:43 07:09 10:54 Glucose 75 POC Glucose 89 98 OUTPATIENT ANTIDIABETIC REGIMEN: * N/A * A1c: 8.5% ASSESSMENT: 01/13 * BSGs well controlled over last 24 hours * Only 5 units of insulin given over last 24 hours and most BSGs have been less than 100 * Will dc basal insulin at this time * Will continue Novolog correction and prandial insulin, however lessen the prandial doses. 01/11 * Patient transferred to the ICU overnight with retroperitoneal bleed, developing severe hyperglycemia likely due to acute stress. Previous to this patient was fairly well maintained on 5-10 units of lantus and a moderate stress novolog scale. Pt was started on an insulin infusion this morning. * AM labs show slight AG and elevated BHA. Repeat labs ordered for this afternoon. Discussed with provider, If acidosis has not progressed will attempt insulin infusion transition. * Pt is NPO. PLAN FOR INPATIENT GLYCEMIC CONTROL: * Hold outpatient oral diabetes medications * Basal insulin * None at this time * Bolus insulin * NovoLog per scale ACHS or Q6hrs while NPO * Goal range 120 - 150 mg/dL * Correction factor 30 mg/dL/unit * Carb ratio: 1 unit per 15 gm CHO consumed with meals PLAN FOR DISCHARGE: * TBD
[2021-01-13 14:15] LABS: Hematocrit (blood only) 27.6 % (42-52); Hemoglobin 8.9 g/dL (14.0-18.0)
--- NOTE | 2021-01-13 16:33 | Hospitalist Progress Note ---
Date of Service January 13, 2021 Assessment & Plan (1) Acute UTI: (2) Weakness: (3) Fall: Plan: per Dr. 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 There is no evidence of myelodysplasia. Patient was started on doxycycline Generalized weakness possible related to acute illness (UTI and Anaplasmosis) Urine cx grew gram negative bacilli-Klebsiella pneumonia On IV rocephin, will transition to p.o. antibiotics once mental status improved Blood cx no growth continue Doxycycline will have PT/ OT re-eval patient Skin tear right elbow Right elbow x-ray: 1. No definite acute fracture or joint effusion of the right elbow. 2. 6 mm calcification which projects posterior to the olecranon. This is indeterminate although could be related to the triceps and could be correlated with clinical evidence for triceps injury. No decrease range of motion currently Consult wound care nurse Received triple ointment abx (4) Anaplasmosis: Plan: CXR: Mild pulmonary edema, trace bilateral pleural effusions CT head: No acute intracranial abnormality Continue doxycycline (5) Metabolic encephalopathy: Plan: Mostly due to acute illness (anaplasmosis and UTI) CT head showed no acute intracranial abnormality Urine cx grew Klebsiella pneumonia Continue monitor closely resolved (6) Atrial fibrillation: Plan: EKG showed Atrial fibrillation on admission with rate control [id number]: 4 Continue IV heparin during hospital course Cardiology on board Does not seem to be good candidate for manager intermediate anticoagulant due to fall risks and confusion Continue carvedilol 6.25mg BID Case discussed with cardiology that recommended anticoagulant with Coumadin 5mg Can be started on p.o. warfarin without bridging with subcutaneous Lovenox on discharge Anticoagulant therapy discussed with daughter and agreed to continue anticoagulant at discharge Not a DOAC candidate given renal failure. She understands the complication by starting on Coumadin such as bleeding (Intracranial hemorrhage, hematuria, GI bleed and even ) Will need to follow up with the coumadin clinic Case discussed again with Cardio today about discontinued Aspirin while taking Coumadin Dr. Shukla would like pt to stay in the hospital until his INR at goal or near therapeutic Called son over the phone to let him know that pt will stay in the hospital until INR at goal Aspirin will be discontinued on discharge 01/13 Retroperitoneal Hemorrhage Hematemesis episode -- sp EGD 01/11: unrevealing -- CT angio abd/pelv: stable rp hemorrhage -- received 2 units pRBC -- Hg stable at 7.1 additional 1 unit PRBC ordered Hg improved to 8.9 denies abdominal or back pain repeat CT Abd/pelvis: Stable to mildly decreased size of the large acute left-sided retroperitoneal hematoma measures up to 22 cm in length extending into the left hemipelvis. -- continue to monitor closely heparin, coumadin , ASA discontinued (7) Retroperitoneal bleeding: (8) Elevated troponin: Plan: Troponin: 0.09. Denies CP. EKG +afib Possible elevated secondary to atrial fibrillation Trop trending down Echo showed no LV wall motion abnormality with EF 55-60% (9) Hyponatremia: Plan: corrected sodium of 133 for glucose of 266. Baseline sodium~132 Monitor BMP (10) CKD (chronic kidney disease) stage 5, GFR less than 15 ml/min: Plan: HD on Saturday schedule (11) Diabetes mellitus, type II: Plan: Most recent Hba1c 8.5 Pt was not on any diabetes med before admission Will continue lifestyles changes for now and check BS daily Lantus and Novolog sliding scale during the hospital course -- BSGs stable (12) HTN (hypertension): Plan: Reports patient had low BP and dizziness at dialysis and was tapered off hydralazine. Son reports his carvedilol was decreased from 25 mg to 6.25 mg twice daily. Continue carvedilol DVT Prophylaxis SCDs Full Code Disposition pending PT/OT eval pending Admission and Anticipated Discharge Date Admission Date: January 04, 2021 Subjective ff up for a fib, anemia, etc seen resting in bed, comfortable in good spirits no abdominal, flank, back pain no BMs today no melena/hematochezia overnight tolerating soft diet well no chest pain, dyspnea, palpitations, dizziness no other symptoms Review of Systems Review of Systems: all noted and negative except for above Physical Exam Physical Exam: General- oriented x 1-2, not in distress, speaks in sentences with no effort or accessory muscle use Eyes- anicteric Neck- no JVD Lungs- clear BS BL Heart- normal rate, regular rhythm; no murmurs Abdomen- normal bowel sounds, nondistended, soft, nontender Extremities- no pretibial edema, no calf tenderness Neuro- alert, oriented x 1-2; no new gross focal neurologic deficits Skin- warm & dry Results & Data Results & Data ([facility]) Vital Signs (Past 12 Hours) Vital Signs Temp Pulse Pulse Pulse Resp BP BP 01/13/21 15:51 36.5 C 68 18 01/13/21 12:20 37.2 C 72 20 147/58 H 01/13/21 12:00 36.7 C 69 16 160/60 H 01/13/21 11:36 37.0 C 74 20 150/64 H 01/13/21 11:29 37.0 C 70 20 150/63 H 01/13/21 10:36 37.2 C 72 20 157/58 H 01/13/21 10:30 37.3 C 69 20 157/58 H 01/13/21 10:06 37.2 C 73 20 148/61 H 01/13/21 09:51 37.1 C 72 20 131/70 01/13/21 09:34 36.9 C 70 20 139/95 01/13/21 08:00 72 01/13/21 07:00 36.9 C 74 18 144/58 H 01/13/21 06:24 70 16 144/58 H 01/13/21 05:30 75 18 127/53 L BP Pulse Ox 01/13/21 15:51 168/58 H 95 01/13/21 12:20 96 01/13/21 12:00 98 01/13/21 11:36 96 01/13/21 11:29 97 01/13/21 10:36 98 01/13/21 10:30 98 01/13/21 10:06 98 01/13/21 09:51 98 01/13/21 09:34 95 01/13/21 08:00 01/13/21 07:00 94 01/13/21 06:24 94 01/13/21 05:30 93 all noted and reviewed including below (1) Diabetes mellitus, type II Diabetes mellitus complication status: without complication Diabetes mellitus chcf insulin use: unspecified chcf insulin use status Qualified Code(s): E11.9 - Type 2 diabetes mellitus without complications
--- NOTE | 2021-01-13 18:04 | Nephrology Progress Note ---
Date of Service January 13, 2021 Assessment & Plan (1) ESRD (end stage renal disease) on dialysis: Plan: MWF in center HD as OP >> last HD 01/12 with SBP maintained and UF 600mL. chemistries and volume status acceptable despite pRBC and events with retroperitoneal bleed. -for gentle dialysis tomorrow; no need for urgent HD today >>he should tolerate another unit pRBC w/o issues today > no heparin, up to 2500 mL off tomorrow as tolerated -he is getting max dose IV iron and procrit with HD to help w/ Fe deficiency anemia -ordered t stn for am -next HD 01/14 or as clinical needs dictate -note not on binder currently and none indicated -will start renavite hs (2) Anemia: Plan: multifactorial anemia, including of ESRD and now w/ retroperitoneal bleed> getting iron load and will intensify epo on HD -pt also with frequent falls prior to admission > LT AC no longer planned given recent events Admission and Anticipated Discharge Date Admission Date: January 04, 2021 Subjective seen on rounds this at approx 0845; no c/o further back pain, worse sob or weakness. hgb had dropped again and pt for repeat CT scan - showed stable large retroperitoneal hematoma Review of Systems Review of Systems: All systems reviewed & are unremarkable except as noted in Subjective Physical Exam Constitutional: well developed, + thin and cooperative Eyes: EOM intact bilaterally ENMT: Ears: no external ear abnormality Nose: no external nose abnormality Mouth: + dry oral mucous membranes Neck: no nuchal rigidity Respiratory: normal respiratory effort Auscultation: + diminished lung sounds Cardiovascular: Rate/Rhythm: regular rate and regular rhythm Extremities: no edema Gastrointestinal (Abdomen): Inspection/Auscultation: normal bowel sounds Percussion/Palpation: abdomen soft; abdomen nontender Musculoskeletal: Extremities: + abnormal strength (Generalized weakness) Skin: no rashes, warm and dry Neurologic: quintero, fluent speech, no tremor Psychiatric: Orientation: alert and oriented x 3 Insight: + limited insight Judgement: + limited judgement Results & Data ([facility]) Vital Signs (Past 12 Hours) Vital Signs Temp Pulse Pulse Pulse Resp BP BP 01/13/21 15:51 36.5 C 68 18 01/13/21 12:20 37.2 C 72 20 147/58 H 01/13/21 12:00 36.7 C 69 16 160/60 H 01/13/21 11:36 37.0 C 74 20 150/64 H 01/13/21 11:29 37.0 C 70 20 150/63 H 01/13/21 10:36 37.2 C 72 20 157/58 H 01/13/21 10:30 37.3 C 69 20 157/58 H 01/13/21 10:06 37.2 C 73 20 148/61 H 01/13/21 09:51 37.1 C 72 20 131/70 01/13/21 09:34 36.9 C 70 20 139/95 01/13/21 08:00 72 01/13/21 07:00 36.9 C 74 18 144/58 H 01/13/21 06:24 70 16 144/58 H BP Pulse Ox 01/13/21 15:51 168/58 H 95 01/13/21 12:20 96 01/13/21 12:00 98 01/13/21 11:36 96 01/13/21 11:29 97 01/13/21 10:36 98 01/13/21 10:30 98 01/13/21 10:06 98 01/13/21 09:51 98 01/13/21 09:34 95 01/13/21 08:00 01/13/21 07:00 94 01/13/21 06:24 94 Laboratory Results 01/13/21 13:58 01/13/21 04:[address] today reviewed (1) Anemia Anemia type: unspecified type Qualified Code(s): D64.9 - Anemia, unspecified
[2021-01-13] MEDS: DOXYCYCLINE HYCLATE 100 MG CAP PO SCH (21:02)
[2021-01-13] MEDS: NEPHROCAPS PO SCH (21:02)
[2021-01-13] MEDS: carvediloL 6.25 MG TAB PO SCH (21:55)
[2021-01-14] MEDS ORDERED: EPOETIN ALFA 24,000 UNITS in SYRINGE 0 ML IV SCH (07:00)
[2021-01-14] MEDS ORDERED: SODIUM CHLORIDE 0.9% 1000ML 1,000 ML IV PRN (07:00)
[2021-01-14] MEDS ORDERED: EPOETIN ALFA 4,000 UNIT/ML VIAL IV ONE (07:00)
[2021-01-14 07:08] LABS: Basophils # (auto) 0.04 K/uL (0-0.2); Basophils % (auto) 0.5 %; Eosinophils # (auto) 0.06 K/uL (0-0.5); Eosinophils % (auto) 0.7 %; Hematocrit (blood only) 28.8 % (42-52); Hemoglobin 9.4 g/dL (14.0-18.0); Immature Granulocytes # (auto) 0.29 K/uL (0.00-0.02); Immature Granulocytes % (auto) 3.6 %; Lymphocytes # (auto) 1.66 K/uL (1.2-3.4); Lymphocytes % (auto) 20.5 %; Mean Corpuscular Hemoglobin 30.3 pg (25-34); Mean Corpuscular Hgb Conc 32.6 g/dL (32-36); Mean Corpuscular Volume 92.9 fL (80-100); Mean Platelet Volume 9.2 fL (7.4-10.4); Monocytes # (auto) 1.42 K/uL (0.11-0.59); Monocytes % (auto) 17.6 %; Neutrophils # (auto) 4.62 K/uL (1.4-6.5); Neutrophils % (auto) 57.1 %; Platelet Count 219 K/uL (130-400); RDW Coefficient of Variation 19.4 % (11.5-14.5); White Blood Count 8.09 K/uL (4.8-10.8)
[2021-01-14 07:46] LABS: Albumin Globulin Ratio 0.6 (0.9-2); Albumin Level 2.3 gm/dl (3.4-5.0); BUN Creatinine Ratio 7.7 (10-20); Bilirubin,Total 0.7 mg/dl (0.2-1); Calcium 8.5 mg/dl (8.5-10.1); Creatinine Clr Calc Pharmacy 11.2 ml/min; Est GFR (African American) 12.4 ml/min; Est GFR (Non-African American) 10.7 ml/min; Globulin 4.1 gm/dl (2.5-4.0); Potassium 3.8 mmol/L (3.5-5.1); Total Protein 6.4 gm/dl (6.4-8.2)
[2021-01-14] MEDS: INSULIN ASPART 100 UNITS/ML 3 ML PEN SC SCH ×4 (08:00→21:46)
[2021-01-14] MEDS: CYANOCOBALAMIN 500 MCG TABLET (VITAMIN B-12) PO SCH (08:08)
[2021-01-14] MEDS: CHOLECALCIFEROL 1,000 UNITS 25 MCG TAB PO SCH (08:09)
[2021-01-14] MEDS: carvediloL 6.25 MG TAB PO SCH ×2 (08:09→21:29)
[2021-01-14] MEDS: DOXYCYCLINE HYCLATE 100 MG CAP PO SCH ×2 (08:09→21:29)
[2021-01-14] MEDS: LIDOCAINE 5% 1 PATCH TD SCH (08:10)
--- NOTE | 2021-01-14 13:15 | Hospitalist Progress Note ---
Date of Service January 14, 2021 Assessment & Plan (1) Acute UTI: (2) Weakness: (3) Fall: Plan: per Dr. 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 There is no evidence of myelodysplasia. Patient was started on doxycycline Generalized weakness possible related to acute illness (UTI and Anaplasmosis) Urine cx grew gram negative bacilli-Klebsiella pneumonia On IV rocephin, will transition to p.o. antibiotics once mental status improved Blood cx no growth continue Doxycycline will have PT/ OT re-eval patient Skin tear right elbow Right elbow x-ray: 1. No definite acute fracture or joint effusion of the right elbow. 2. 6 mm calcification which projects posterior to the olecranon. This is indeterminate although could be related to the triceps and could be correlated with clinical evidence for triceps injury. No decrease range of motion currently Consult wound care nurse Received triple ointment abx (4) Anaplasmosis: Plan: CXR: Mild pulmonary edema, trace bilateral pleural effusions CT head: No acute intracranial abnormality Continue doxycycline (5) Metabolic encephalopathy: Plan: Mostly due to acute illness (anaplasmosis and UTI) CT head showed no acute intracranial abnormality Urine cx grew Klebsiella pneumonia Continue monitor closely resolved (6) Atrial fibrillation: Plan: EKG showed Atrial fibrillation on admission with rate control [id number]: 4 Continue IV heparin during hospital course Cardiology on board Does not seem to be good candidate for intermediate frame tender anticoagulant due to fall risks and confusion Continue carvedilol 6.25mg BID Case discussed with cardiology that recommended anticoagulant with Coumadin 5mg Can be started on p.o. warfarin without bridging with subcutaneous Lovenox on discharge Anticoagulant therapy discussed with daughter and agreed to continue anticoagulant at discharge Not a DOAC candidate given renal failure. She understands the complication by starting on Coumadin such as bleeding (Intracranial hemorrhage, hematuria, GI bleed and even ) Will need to follow up with the coumadin clinic Case discussed again with Cardio today about discontinued Aspirin while taking Coumadin Dr. Shukla would like pt to stay in the hospital until his INR at goal or near therapeutic Called son over the phone to let him know that pt will stay in the hospital until INR at goal Aspirin will be discontinued on discharge 01/14 Retroperitoneal Hemorrhage Hematemesis episode -- sp EGD 01/11: unrevealing -- CT angio abd/pelv: stable rp hemorrhage -- received 3 units pRBC -- Hg now at 9.4 denies abdominal or back pain repeat CT Abd/pelvis: Stable to mildly decreased size of the large acute left-sided retroperitoneal hematoma measures up to 22 cm in length extending into the left hemipelvis. -- continue to monitor closely heparin, coumadin , ASA discontinued (7) Retroperitoneal bleeding: (8) Elevated troponin: Plan: Troponin: 0.09. Denies CP. EKG +afib Possible elevated secondary to atrial fibrillation Trop trending down Echo showed no LV wall motion abnormality with EF 55-60% (9) Hyponatremia: Plan: corrected sodium of 133 for glucose of 266. Baseline sodium~132 Monitor BMP (10) CKD (chronic kidney disease) stage 5, GFR less than 15 ml/min: Plan: HD on Saturday schedule (11) Diabetes mellitus, type II: Plan: Most recent Hba1c 8.5 Pt was not on any diabetes med before admission Will continue lifestyles changes for now and check BS daily Lantus and Novolog sliding scale during the hospital course -- BSGs stable (12) HTN (hypertension): Plan: Reports patient had low BP and dizziness at dialysis and was tapered off hydralazine. Son reports his carvedilol was decreased from 25 mg to 6.25 mg twice daily. Continue carvedilol, lasix monitor for now DVT Prophylaxis SCDs Full Code Disposition pending PT/OT eval pending Admission and Anticipated Discharge Date Admission Date: January 04, 2021 Subjective ff up for atrial fibrillation, anaplasmosis, retroperitoneal hemorrhage, etc seen resting in bed, comfortable HD in progress in good spirits states he feels fine overall no abdominal pain or back pain no melena/hematochezia no chest pain, dyspnea, palpitations, dizziness tolerating diet well no other symptoms Review of Systems Review of Systems: all noted and negative except for above Physical Exam Physical Exam: General- oriented x 3, not in distress, speaks in sentences with no effort or accessory muscle use Eyes- anicteric Neck- no JVD Lungs- clear BS, no rales/wheezing BL Heart- normal rate, regular rhythm; no murmurs Abdomen- normal bowel sounds, nondistended, soft, nontender Extremities- no pretibial edema, no calf tenderness Neuro- alert, oriented x 3; no gross focal neurologic deficits Skin- warm & dry Results & Data Results & Data ([facility]) Vital Signs (Past 12 Hours) Vital Signs Temp Pulse Pulse Pulse Resp BP BP 01/14/21 12:55 36.6 C 73 18 162/75 H 01/14/21 12:25 36.8 C 78 01/14/21 12:24 78 156/87 H 01/14/21 12:01 78 155/84 H 01/14/21 11:40 78 160/79 H 01/14/21 11:20 78 151/79 H 01/14/21 11:00 77 169/76 H 01/14/21 10:44 79 163/77 H 01/14/21 10:20 78 156/77 H 01/14/21 10:00 72 143/71 H 01/14/21 09:40 71 144/76 H 01/14/21 09:20 67 149/76 H 01/14/21 09:00 76 143/69 H 01/14/21 08:53 77 152/73 H 01/14/21 08:50 36.3 C L 79 01/14/21 08:01 36.4 C L 72 18 175/80 H 01/14/21 08:00 62 01/14/21 03:49 36.6 C 87 19 151/90 H BP Pulse Ox 01/14/21 12:55 98 01/14/21 12:25 158/80 H 01/14/21 12:24 01/14/21 12:01 01/14/21 11:40 01/14/21 11:20 01/14/21 11:00 01/14/21 10:44 01/14/21 10:20 01/14/21 10:00 01/14/21 09:40 01/14/21 09:20 01/14/21 09:00 01/14/21 08:53 01/14/21 08:50 01/14/21 08:01 96 01/14/21 08:00 01/14/21 03:49 90 all noted and reviewed including below (1) Diabetes mellitus, type II Diabetes mellitus complication status: without complication Diabetes mellitus jail insulin use: unspecified intermediate frame tender insulin use status Qualified Code(s): E11.9 - Type 2 diabetes mellitus without complications
--- NOTE | 2021-01-14 17:06 | Nephrology Progress Note ---
Date of Service January 14, 2021 Assessment & Plan (1) ESRD (end stage renal disease) on dialysis: Plan: MWF in center HD as OP >> last HD 01/14 with SBP maintained and UF 2.5L. chemistries and volume status acceptable despite pRBC and events with retroperitoneal bleed. -next HD on 01/16 as IP or OP -he is getting max dose IV iron and procrit with HD to help w/ Fe deficiency anemia -ordered t stn for am -note not on binder currently and none indicated -at d/c continue renavite hs >>>I called dialysis unit to alert them to run him heparin free as OP until we c an reevaluate (2) Anemia: Plan: multifactorial anemia, including of ESRD and now w/ retroperitoneal bleed> getting iron load and will intensify epo on HD -pt also with frequent falls prior to admission > LT AC no longer planned given recent events Admission and Anticipated Discharge Date Admission Date: January 04, 2021 Subjective tolerated HD well today: Tolerated 2.5 L fluid removal. No heparin in dialysis. Hungry. Eager for discharge. Denies shortness of breath or back pain or nausea vomiting. No edema Review of Systems Review of Systems: All systems reviewed & are unremarkable except as noted in Subjective Physical Exam Constitutional: well developed, + thin and cooperative Eyes: EOM intact bilaterally ENMT: Ears: no external ear abnormality Nose: no external nose abnormality Mouth: + dry oral mucous membranes Neck: no nuchal rigidity Respiratory: normal respiratory effort Auscultation: + diminished lung s ounds Cardiovascular: Rate/Rhythm: regular rate and regular rhythm Extremities: no edema Gastrointestinal (Abdomen): Inspection/Auscultation: normal bowel sounds Percussion/Palpation: abdomen soft; abdomen nontender Musculoskeletal: Extremities: + abnormal strength (Generalized weakness) Skin: no rashes, warm and dry Psychiatric: Orientation: alert and oriented x 3 Insight: + limited insight Judgement: + limited judgement Results & Data ([place]) Vital Signs (Past 12 Hours) Vital Signs Temp Pulse Pulse Pulse Resp BP BP 01/14/21 15:43 36.5 C 73 17 166/73 H 01/14/21 12:55 36.6 C 73 18 162/75 H 01/14/21 12:25 36.8 C 78 01/14/21 12:24 78 156/87 H 01/14/21 12:01 78 155/84 H 01/14/21 11:40 78 160/79 H 01/14/21 11:20 78 151/79 H 01/14/21 11:00 77 169/76 H 01/14/21 10:44 79 163/77 H 01/14/21 10:20 78 156/77 H 01/14/21 10:00 72 143/71 H 01/14/21 09:40 71 144/76 H 01/14/21 09:20 67 149/76 H 01/14/21 09:00 76 143/69 H 01/14/21 08:53 77 152/73 H 01/14/21 08:50 36.3 C L 79 01/14/21 08:01 36.4 C L 72 18 175/80 H 01/14/21 08:00 62 BP Pulse Ox 01/14/21 15:43 100 01/14/21 12:55 98 01/14/21 12:25 158/80 H 01/14/21 12:24 01/14/21 12:01 01/14/21 11:40 01/14/21 11:20 01/14/21 11:00 01/14/21 10:44 01/14/21 10:20 01/14/21 10:00 01/14/21 09:40 01/14/21 09:20 01/14/21 09:00 01/14/21 08:53 01/14/21 08:50 01/14/21 08:01 96 01/14/21 08:00 Laboratory Results 01/14/21 06:27 01/14/21 06:27 (1) Anemia Anemia type: unspecified type Qualified Code(s): D64.9 - Anemia, unspecified
[2021-01-14] MEDS: HEPARIN SODIUM/DEXTROSE 25,000 UNITS/500 ML BAG IV SCH (18:23)
[2021-01-14] MEDS: NEPHROCAPS PO SCH (21:29)
[2021-01-15 07:35] VITALS: TEMP 97.5; O2SAT 97
[2021-01-15] MEDS: INSULIN ASPART 100 UNITS/ML 3 ML PEN SC SCH (07:44)
[2021-01-15 08:02] LABS: Basophils # (auto) 0.06 K/uL (0-0.2); Basophils % (auto) 0.8 %; Eosinophils # (auto) 0.07 K/uL (0-0.5); Eosinophils % (auto) 0.9 %; Hematocrit (blood only) 31.3 % (42-52); Hemoglobin 10.3 g/dL (14.0-18.0); Immature Granulocytes # (auto) 0.31 K/uL (0.00-0.02); Immature Granulocytes % (auto) 3.9 %; Lymphocytes # (auto) 1.94 K/uL (1.2-3.4); Lymphocytes % (auto) 24.6 %; Mean Corpuscular Hemoglobin 31.3 pg (25-34); Mean Corpuscular Hgb Conc 32.9 g/dL (32-36); Mean Corpuscular Volume 95.1 fL (80-100); Mean Platelet Volume 9.9 fL (7.4-10.4); Monocytes # (auto) 1.21 K/uL (0.11-0.59); Monocytes % (auto) 15.3 %; Neutrophils # (auto) 4.31 K/uL (1.4-6.5); Neutrophils % (auto) 54.5 %; Platelet Count 224 K/uL (130-400); RDW Coefficient of Variation 20.2 % (11.5-14.5); RDW Standard Deviation 62.8 fL (36.4-46.3); Red Blood Count 3.29 M/uL (4.7-6.1)
[2021-01-15 08:23] LABS: Anisocytosis Present; Hypochromasia Present; Polychromasia 1+
[2021-01-15 08:42] LABS: Albumin Globulin Ratio 0.5 (0.9-2); Albumin Level 2.4 gm/dl (3.4-5.0); BUN Creatinine Ratio 7.9 (10-20); Bilirubin,Total 0.7 mg/dl (0.2-1); Calcium 8.8 mg/dl (8.5-10.1); Creatinine Clr Calc Pharmacy 12.1 ml/min; Est GFR (African American) 13.7 ml/min; Est GFR (Non-African American) 11.8 ml/min; Globulin 4.5 gm/dl (2.5-4.0); Potassium 3.9 mmol/L (3.5-5.1); Total Protein 6.9 gm/dl (6.4-8.2)
[2021-01-15] MEDS: carvediloL 6.25 MG TAB PO SCH (08:43)
[2021-01-15] MEDS: FUROSEMIDE 40 MG TAB PO SCH (08:44)
[2021-01-15] MEDS: CYANOCOBALAMIN 500 MCG TABLET (VITAMIN B-12) PO SCH (08:44)
[2021-01-15] MEDS: CHOLECALCIFEROL 1,000 UNITS 25 MCG TAB PO SCH (08:45)
[2021-01-15] MEDS: DOXYCYCLINE HYCLATE 100 MG CAP PO SCH (08:45)
[2021-01-15] MEDS: LIDOCAINE 5% 1 PATCH TD SCH (08:48)
--- NOTE | 2021-01-15 10:40 | Hospitalist Progress Note ---
Date of Service January 15, 2021 delayed entry date of service noted above Assessment & Plan (1) Acute UTI: (2) Weakness: (3) Fall: Plan: per Dr. 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 There is no evidence of myelodysplasia. Patient was started on doxycycline Generalized weakness possible related to acute illness (UTI and Anaplasmosis) Urine cx grew gram negative bacilli-Klebsiella pneumonia given IV rocephin Blood cx no growth continue Doxycycline Skin tear right elbow Right elbow x-ray: 1. No definite acute fracture or joint effusion of the right elbow. 2. 6 mm calcification which projects posterior to the olecranon. This is indeterminate although could be related to the triceps and could be correlated with clinical evidence for triceps injury. healing well Received triple ointment abx (4) Anaplasmosis: Plan: CXR: Mild pulmonary edema, trace bilateral pleural effusions CT head: No acute intracranial abnormality Continue doxycycline (5) Metabolic encephalopathy: Plan: Mostly due to acute illness (anaplasmosis and UTI) CT head showed no acute intracranial abnormality Urine cx grew Klebsiella pneumonia resolved (6) Atrial fibrillation: Plan: EKG showed Atrial fibrillation on admission with rate control [id number]: 4 given IV heparin during hospital course Cardiology on board Continue carvedilol 6.25mg BID Case discussed with cardiology that recommended anticoagulant with Coumadin 5mg given coumadin with heparin drip Retroperitoneal Hemorrhage Hematemesis episode -- patient developed back pain and melena -- sp EGD 01/11: unrevealing -- CT angio abd/pelv: (+) retroperitoneal hemorrhage -- received 3 units pRBC -- Hg now at 9.4 denies abdominal or back pain repeat CT Abd/pelvis: Stable to mildly decreased size of the large acute left-sided retroperitoneal hematoma measures up to 22 cm in length extending into the left hemipelvis. -- continue to monitor closely heparin, coumadin , ASA discontinued -- continue Carvedilol not a candidate for anticoagulation as per Paper Finisher ff up with Paper Finisher -- repeat CBC as outpatient on ff up with PCP (7) Retroperitoneal bleeding: (8) Elevated troponin: Plan: Troponin: 0.09. Denies CP. EKG +afib Possible elevated secondary to atrial fibrillation Trop trending down Echo showed no LV wall motion abnormality with EF 55-60% (9) Hyponatremia: Plan: resolved (10) CKD (chronic kidney disease) stage 5, GFR less than 15 ml/min: Plan: HD on Saturday schedule (11) Diabetes mellitus, type II: Plan: Most recent Hba1c 8.5 Pt was not on any diabetes med before admission Will continue lifestyles changes for now and check BS daily Lantus and Novolog sliding scale during the hospital course -- BSGs stable (12) HTN (hypertension): Plan: Reports patient had low BP and dizziness at dialysis and was tapered off hydralazine. Son reports his carvedilol was decreased from 25 mg to 6.25 mg twice daily. Continue carvedilol, lasix monitor for now DVT Prophylaxis SCDs Full Code Disposition dc home ff up with PCP in 1 week ff up with Paper Finisher Admission and Anticipated Discharge Date Admission Date: January 04, 2021 Subjective ff up for weakness, uti, anaplasmosis, a fib etc. seen resting in chair, comfortable in good spirits oriented, answers all questions appropriately states he feels fine overall denies chest pain, palpitations, dizziness no abdominal pain ,nausea/vomiting no back pain, flank pain no other symptoms states he is ready and would like to be discharged Review of Systems Review of Systems: all noted and negative except for above Physical Exam Physical Exam: General- oriented x 3, not in distress, speaks in sentences with no effort or accessory muscle use Eyes- anicteric Neck- no JVD Lungs- clear BS bilaterally, no rales/wheezes Heart- normal rate, regular rhythm; no murmurs Abdomen- normal bowel sounds, nondistended, soft, nontender Extremities- no pretibial edema, no calf tenderness Neuro- alert, oriented x 3; no gross focal neurologic deficits Skin- warm & dry Results & Data Results & Data ([facility]) Vital Signs (Past 12 Hours) Vital Signs Temp Pulse Resp BP Pulse Ox 01/15/21 07:34 36.4 C L 77 18 171/74 H 97 01/15/21 03:50 36.8 C 72 18 160/72 H 94 01/15/21 00:00 36.6 C 74 18 149/66 H 97 all noted and reviewed including below (1) Diabetes mellitus, type II Diabetes mellitus complication status: without complication Diabetes mellitus terminal block assembler insulin use: unspecified terminal block assembler insulin use status Qualified Code(s): E11.9 - Type 2 diabetes mellitus without complications
[2021-01-15 10:51] VITALS: PULSE 81
[2021-01-15 11:05] VITALS: BP 158/75
--- NOTE | 2021-01-20 11:38 | Discharge Summary ---
Date of Service January 20, 2021 Admission HPI Per Admitting Provider Patient is 75-year-old male with PMH HTN, HLD, ESRD on HD on sat, sat, sat, diet-controlled DM II, depression, anxiety presented to ER with complaint of confusion. History obtained from chart review and patient's son, limited history obtained from patient secondary to confusion. Patient son reports for the past 2 weeks patient has had generalized weakness and fatigue. Had vomiting and diarrhea last week that has since resolved. Patient has needed to use an old walker recently as he has been unable to ambulate without assistance. Reports has been having dizziness with standing and has had several falls. No known tick bite. Reports patient had low BP and dizziness at dialysis and was tapered off hydralazine. Son reports his carvedilol was decreased from 25 mg to 6.25 mg twice daily. 4 to 5 days ago patient with chills and sweats. Patient seen in ER 01/02/2021 for weakness and fatigue. 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 There is no evidence of myelodysplasia. Patient son reports the past 2 days patient with increased weakness and lethargy. Patient son reports patient has been increasingly confused. today fell while going to dialysis and reports skin tear to right elbow. Patient denies headache, current dizziness, chest pain, shortness of breath, cough. He currently reports some tenderness to right elbow when he moves it or when it is touched. Patient is oriented to self and knows he is at hospital, otherwise is unable to tell why he is at hospital. Today in ER patient afebrile, vitals stable. H/H: 11/32 (baseline Hgb ~10), PLT: 86 (was 192 on 11/10/2020), corrected sodium of 133 for glucose of 266, AST: 58, ALT: 39, alk phos: 260 (liver functions previously WNL), troponin: 0.09,Cr: 4.3. Negative COVID-19 PCR. CXR: Mild pulmonary edema, trace bilateral pleural effusions CT head: No acute intracranial abnormality Patient being admitted for further treatment and evaluation Admission Exam (Per Admitting) Constitutional General: no distress, WDWN Head: normocephalic, atraumatic Eyes: PERRL, EOM's intact, conjunctiva non-injected, anicteric ENT: normal inspection external ears, nose, mucous membranes moist Neck: supple, trachea midline Lungs: clear, no respiratory distress, no wheezing/rhonchi/rales CV: irregularly irregular, rate 76, trace pretibial edema Abd: normal BS, soft, non-tender Ext: no cyanosis, no calf tenderness; RUE: +right elbow with ecchymosis, non- tender to palpation, active flexion and extension and pronation supination intact, +skin tear posterior elbow/forearm, distal pulses intact; strong and equal machinist outside strength, Active ROM of bilateral upper extremities. Active flexion, extension of bilateral hips, knees, ankles. Neuro: A&O x 3, no focal deficits noted, normal affect Skin: warm, dry, +scattered ecchymosis Discharge Data Consultations 01/04/21 17:08 ED Decision to Admit Stat 01/04/21 18:11 Consult Nephrology Routine 01/05/21 08:00 Consult Cardiology Routine 01/11/21 04:30 Consult Gastroenterology Routine 01/11/21 05:40 Consult Book Editor Routine Procedures Performed Operation Date: 01/11/21 16:15 Actual Procedures p Esophagogastroduodenoscopy - Essence Bagley DO ABDOMEN AND PELVIS CT WITHOUT CONTRAST CT DOSE: 1449.58 mGy.cm HISTORY: Acute back pain with nausea and vomiting. back pain, nv, gi bleed TECHNIQUE: Multiaxial CT images of the abdomen and pelvis were performed without contrast. A dose lowering technique was utilized adhering to the principles of ALARA. COMPARISON STUDY: CT abdomen and pelvis 01/02/2021 FINDINGS: Small pleural effusions with dependent bibasilar groundglass and consolidative opacities suggestive of atelectasis. Study is limited secondary to upper extremity positioning and lack of contrast. No pneumatosis or pneumoperitoneum. Moderate cardiomegaly with small pericardial effusion. The unenhanced spleen, moderately atrophic pancreas, gallbladder and liver appear unremarkable. Scattered calcifications of the liver and spleen. Bilateral adrenal gland thickening suggestive of hyperplasia is unchanged. 3 mm calculus of the interpolar right kidney is unchanged. No ureteral calculi or hydronephrosis. Unremarkable left kidney. Mild urinary bladder wall thickening with penis pump. Mild prostamegaly. Small fat filled inguinal hernias. Atherosclerosis of the aorta without aneurysm. No adenopathy. Duodenal diverticulum. No bowel obstruction or bowel wall thickening. Moderate fecal retention of the rectum. Colonic diverticulosis without acute diverticulitis. Large acute retroperitoneal hematoma measures up to 8.0 x 11.8 x 25 cm in AP, transverse and cranial caudal dimensions extending from the level of L1 involving the psoas musculature and posterior pararenal space extending into the pelvis, iliacus and iliopsoas musculature. This displaces the adjacent descending colon. Hemorrhage tracks along the left pericolic gutter. No acute fracture. Degenerative changes of the spine, pelvis and hips. IMPRESSION: 1. Large acute left-sided retroperitoneal hematoma measures up to 25 cm in length and extends into the left hemipelvis, new from 01/02/2021. 2. No bowel obstruction or bowel wall thickening. 3. Colonic diverticulosis. 4. Urinary bladder wall thickening with perivesicular stranding. Correlate with urinalysis to exclude cystitis. 5. Nonobstructing right nephrolithiasis. 6. Small pleural effusions. 7. Additional findings as above. ACT 112: Negative or not required by law. Hospital Course (1) Acute UTI: (2) Weakness: (3) Fall: per Dr. 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 There is no evidence of myelodysplasia. Patient was started on doxycycline Generalized weakness possible related to acute illness (UTI and Anaplasmosis) Urine cx grew gram negative bacilli-Klebsiella pneumonia given IV rocephin--> change to PO Cephalexin x 4 more day Blood cx no growth completed 10 days of Doxycycline Skin tear right elbow Right elbow x-ray: 1. No definite acute fracture or joint effusion of the right elbow. 2. 6 mm calcification which projects posterior to the olecranon. This is indeterminate although could be related to the triceps and could be correlated with clinical evidence for triceps injury. healing well Received triple ointment abx (4) Anaplasmosis: CXR: Mild pulmonary edema, trace bilateral pleural effusions CT head: No acute intracranial abnormality Continue doxycycline (5) Metabolic encephalopathy: Mostly due to acute illness (anaplasmosis and UTI) CT head showed no acute intracranial abnormality Urine cx grew Klebsiella pneumonia resolved (6) Atrial fibrillation: EKG showed Atrial fibrillation on admission with rate control [id number]: 4 given IV heparin during hospital course Cardiology on board Continue carvedilol 6.25mg BID Case discussed with cardiology that recommended anticoagulant with Coumadin 5mg given coumadin with heparin drip Retroperitoneal Hemorrhage Hematemesis episode -- patient developed back pain and melena -- sp EGD 01/11: unrevealing -- CT angio abd/pelv: (+) retroperitoneal hemorrhage -- received 3 units pRBC -- Hg now at 9.4 denies abdominal or back pain repeat CT Abd/pelvis: Stable to mildly decreased size of the large acute left-sided retroperitoneal hematoma measures up to 22 cm in length extending into the left hemipelvis. -- continue to monitor closely heparin, coumadin , ASA discontinued -- continue Carvedilol not a candidate for anticoagulation as per Wallpaperer Helper ff up with Wallpaperer Helper -- repeat CBC as outpatient on ff up with PCP (7) Retroperitoneal bleeding: (8) Elevated troponin: Troponin: 0.09. Denies CP. EKG +afib Possible elevated secondary to atrial fibrillation Trop trending down Echo showed no LV wall motion abnormality with EF 55-60% (9) Hyponatremia: resolved (10) CKD (chronic kidney disease) stage 5, GFR less than 15 ml/min: HD on Saturday schedule (11) Diabetes mellitus, type II: Most recent Hba1c 8.5 Pt was not on any diabetes med before admission Will continue lifestyles changes for now and check BS daily Lantus and Novolog sliding scale during the hospital course -- BSGs stable (12) HTN (hypertension): Reports patient had low BP and dizziness at dialysis and was tapered off hydralazine. Son reports his carvedilol was decreased from 25 mg to 6.25 mg twice daily. Continue carvedilol, lasix monitor for now DVT Prophylaxis SCDs Full Code Disposition dc home ff up with PCP in 1 week ff up with Wallpaperer Helper
== END 2021-01-15 11:36 | disposition home health service (06) | DRG 867 ==
LOC: ED 12:53 → 2N 17:19 → SUATTDRO 17:19 → 2N 19:21 → 2S 01-11 04:14 → 1E 01-11 05:33 → UNDODISIN 01-11 12:11 → 2S 01-13 10:09

== ENCOUNTER 2021-08-16 14:30 | Inpatient (IN) ==
[2021-08-16] MEDS ORDERED: ACETAMINOPHEN 500 MG TAB PO STA (15:02)
[2021-08-16 15:10] LABS: Basophils # (auto) 0.02 K/uL (0-0.2); Basophils % (auto) 0.1 %; Hematocrit (blood only) 43.1 % (42-52); Hemoglobin 14.2 g/dL (14.0-18.0); Immature Granulocytes # (auto) 0.21 K/uL (0.00-0.02); Immature Granulocytes % (auto) 1.2 %; Lymphocytes # (auto) 0.89 K/uL (1.2-3.4); Lymphocytes % (auto) 5.2 %; Mean Corpuscular Hemoglobin 31.7 pg (25-34); Mean Corpuscular Hgb Conc 32.9 g/dL (32-36); Mean Corpuscular Volume 96.2 fL (80-100); Mean Platelet Volume 10.9 fL (7.4-10.4); Monocytes # (auto) 1.39 K/uL (0.11-0.59); Monocytes % (auto) 8.1 %; Neutrophils # (auto) 14.57 K/uL (1.4-6.5); Neutrophils % (auto) 85.4 %; Platelet Count 154 K/uL (130-400); RDW Coefficient of Variation 14.7 % (11.5-14.5); RDW Standard Deviation 51.6 fL (36.4-46.3); Red Blood Count 4.48 M/uL (4.7-6.1); White Blood Count 17.08 K/uL (4.8-10.8)
[2021-08-16] MEDS ORDERED: AMPICILLIN/SULBACTAM SOD 3,000 MG in 0.9 % SODIUM CHLORIDE 100 ML IV STA (15:11)
--- NOTE | 2021-08-16 15:11 | XRay Report ---
XR chest 1V portable HISTORY: 76 years-old Male SEPSIS acute sepsis COMPARISON: Chest radiographs 01/26/2021 TECHNIQUE: Portable AP view of the chest FINDINGS: The cardiac silhouette is enlarged with findings suggestive of pulmonary arterial hypertension. Ather osclerosis of the thoracic aorta. Dual lumen right IJ hemodialysis catheter appears unchanged. No pne umothorax, pleural effusion or overt pulmonary edema. Mild retrocardiac left basilar opacities. 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 IMPRESSION: 1. Cardiomegaly without pulmonary edema. 2. Mild retrocardiac left basilar opacities suggestive of atelectasis versus pneumonitis. ACT 112: Negative or not required by law. The above report was generated using voice recognition software. It may contain grammatical, syntax o r spelling errors. Electronically signed by: Billy Vitale M.D. 08/16/2021 3:09 PM
--- NOTE | 2021-08-16 15:22 | Emergency Department Note ---
Impression & Plan Fever, Pneumonia, Hypoxia ED Provider Note INFORMANT: Patient ED PROVIDER(S): Galen Vasques MD CHIEF COMPLAINT: Weakness PLAN: Disposition: Admitted Condition: Good Outpatient prescription management: none Referral: None MEDICAL DECISION MAKING: Patient presented because of fever and vomiting. He had a work-up initiated as the patient did have a fever and was mildly hypoxic. He responded to supplemental oxygen, however this had to be increased nasal cannula to anoxia mask Chest x-ray was concerning for pneumonia. He did have an episode of vomiting today as well as Saturday. There was concerns for aspiration. Patient was started on IV Unasyn after cultures. He was found to have a significant leukocytosis. A bio fire was performed and he was found to have enterovirus and rhinovirus. Family noted that there was a cold last week in the house. Patient was monitored closely. Fluid resuscitation was held secondary to his dialysis status. The patient's ECG did show a RVR A. fib but this improved with fever control. Further management in the hospital will be necessary. Consultation was made with the hospitalist service. Patient was evaluated in ER admitted for further management. Triage Nursing notes reviewed and agree them. Vital Signs: reviewed and remarkable for hypoxia and fever Differential diagnosis: Infection, dehydration, metabolic abnormality, hypo/hyperglycemia, electrolyte disturbance, anemia, hypoxia, cardiac sources, intracerebral event, toxicologic, neurologic, as well as other pathologies. Diagnostics interpreted by me: ECG: Twelve-lead ECG reveals atrial fibrillation with rapid ventricular response at 114 bpm. Left axis deviation. Septal Q wave. No ST elevation. Cardiac Monitoring: Cardiac monitoring ordered by me: The patient was placed on continuous cardiac monitoring and observed. It revealed fibrillation at 115 bpm. Imaging studies: Chest x-ray concerning for a left retrocardiac infiltrate. HPI: The patient is a 76 year old male who presents to the Emergency Room with complaints of weakness. This started today and Was noted in dialysis. He seemed to be very weak. He had 1 episode of vomiting. Mild tremors noted as we ll. EMS was summoned. His oxygen saturation was noted to be 84% on room air. Patient states he does not normally wear oxygen. He was placed on nasal cannula which helped. Current pain is rated as 0/10. Patient states that he was feeling well today at home before dialysis. Denies any sick contacts that he is aware of. Lives with his daughter who is not sick by his account. Pt denies LOC, headache, visual changes, neck pain, chest pain, breathing difficulties, abdominal pain, back pain, diarrhea, urinary symptoms, numbness, focal weakness, rash, or other complaints. ROS: See above HPI for pertinent positives & negatives. A complete review of systems was difficult to obtain secondary to patient's illness. PAST MEDICAL HISTORY:See Below , stage renal disease on dialysis PAST SURGICAL HISTORY:See Below,dialysis catheter FAMILY HISTORY:See Below SOCIAL HISTORY:See Below, lives with daughter HOME MEDICATIONS:See Below ALLERGIES:See Below VITALS:See Below PHYSICAL EXAMINATION: GENERAL: Sleeping but easily arousable. Nods off quickly. Mildly ill appearing, in no distress HENT: Normocephalic, atraumatic. Oropharynx unremarkable. EYES: Normal conjunctiva. Sclera non-icteric. NECK: Inspection normal. Non-tender. Supple. No nuchal rigidity. FROM. No masses. RESPIRATORY: Scattered rhonchi, worse on the left no wheezes. No rales. Mildly increased respiratory effort. CARDIAC: Tachycardic rate. Normal rhythm. No murmurs. No rubs. Extremities warm and well perfused. Pulses equal. No JVD. GI: Soft, non-distended. No tenderness to palpation. No rebound or guarding. No masses. RECTAL: Deferred. MUSCULOSKELETAL: Atraumatic. Chest examination reveals no tenderness. Dialysis catheter in the right upper chest. No joint edema. LOWER EXTREMITIES: Calves are equal size bilaterally and non-tender. No edema. No discoloration. NEURO: Mildly altered sensorium. No sensory or motor deficits noted. SKIN: No rash or jaundice noted. CRITICAL CARE: I have personally spent greater than 32 minutes of critical care time in the direct management of this patient. This includes bedside care, interpretation of diagnostic studies, and testing, discussion with consultants, patient, and family members, and other required patient management activities. These minutes are in excess of all separately billable procedures. 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 Noted during 12/2020 [facility] admission for anaplasmosis/retroperitoneal bleed. Evaluated by cardiology who felt patient is "definitely not a candidate for long-term anticoagulation at this point" after development of significant anemia in setting of large retroperitoneal bleed. Recommended continued beta yohan. RECENT ZIOPATCH - NO RESULTS YET Chronic kidney disease (CKD), stage V Currently on transplant list Depression Diabetes mellitus, type II Previous oral meds since discontinued- per patient, they are attempting diet/exercise changes RECENTLY BLOOD SUGARS HAVE BEEN ELEVATED - MORNINGS START OUT 230-250/ APPOINTMENT UPCOMING TO ADDRESS - NOT SCHEDULED AT PRESENT TIME (DAVID AND DR CRYSTAL) Dialysis patient MWF > [facility] in [place] (via port) Gastric ulcer hx HTN (hypertension) Hyperlipidemia Retroperitoneal hematoma Found during 12/2020 [facility] admission > Surgical History History of cataract surgery R/L History of esophagogastroduodenoscopy (EGD) EGD (01/11/21): MAC at [facility] History of peritoneal dialysis Insertion of CAPD catheter (09/23/20): Grade view 2, MAC #3, ETT 7.5 at [facility] Reposition of dialysis catheter, perm cath placement (10/28/20): Grade view 2, Tian #2, ETT 7.5 at [facility] Peritoneal dialysis catheter removal (11/22/20): MAC at [facility] History of tooth extraction Hx of abdominal surgery removal of Peritoneal Diaylsis cath (11/2020) S/P colonoscopy with polypectomy S/P dialysis catheter insertion Family History Mother Diabetes Breast cancer Family history of diabetes mellitus Father Family history of diabetes mellitus Other No family history of adverse response to anesthesia Social History Smoking Status: Never smoker Tobacco Type: Cigarettes Second Hand Exposure: Yes (hx); Hx Alcohol Use: Yes Alcohol type: beer and hard liquor Alcohol Intake Frequency Comment: 3-4 beers a week Hx Substance Use: No Preferred Language: Belgian Communication Ability: Effective Visual Impairment: No Limitations Cephalometric Tracer Required: No Beliefs That Will Affect Care: None marital status: / Current Living Situation: Alone Current Living Situation Comment: Son Galen Corral lives next door. How many Children do You have: 2 Feels Safe at Home: Yes Assistive Devices: Hearing Aid - Left Allergies Allergies Allergy/AdvReac Type Severity Reaction Status Date / Time LUCHO Inhibitors Allergy Unknown Unknown Verified 08/16/21 15:24 reaction (Per S records) sitagliptin AdvReac Unknown Lightheadedness, Verified 08/16/21 15:24 upper abdominal pain Qjfiigw-QHT-KvU Reductase AdvReac Unknown Myopathy Verified 08/16/21 15:24 Inhibitor [Bsfutlk-Zbj-Mjq Reductase Inhibitor] Home Meds Home Medications Medication Instructions Recorded Confirmed cholecalciferol (vitamin D3) 25 2,000 unit PO QAM 10/27/18 08/16/21 mcg (1,000 unit) capsule (Vitamin D3) cyanocobalamin (vitamin B-12) 1,000 mcg PO QAM 10/27/18 08/16/21 1,000 mcg tablet (Vitamin B-12) famotidine 20 mg tablet 20 mg PO [id number] 06/01/20 08/16/21 carvedilol 6.25 mg tablet 6.25 mg PO BID 01/04/21 08/16/21 calcium acetate 667 mg tablet 667 mg PO TIDWMEAL 05/04/21 08/16/21 ferrous sulfate 325 mg (65 mg 325 mg PO QAM 05/04/21 08/16/21 iron) tablet (iron) furosemide 40 mg tablet 40 mg PO UD 05/04/21 08/16/21 ezetimibe 10 mg tablet 10 mg PO DAILY 08/16/21 08/16/21 insulin glargine 100 unit/mL (3 10 unit SUBCUT QPM 08/16/21 08/16/21 mL) subcutaneous pen (Lantus Solostar U-100 Insulin) Results & Data (ED) Vital Signs Vital Signs - 24 hr 08/16/21 14:38 08/16/21 14:41 08/16/21 14:58 Temperature 38.5 C H Temperature Source Oral Pulse Rate 109 H 115 H Pulse Rate from SpO2 Sensor 106 H Pulse Rhythm Regular Pulse Strength Normal Respiratory Rate 40 H 22 Respiratory Effort / Characteristics Non-Labored Respiratory Depth Normal Respiratory Pattern Regular Blood Pressure 193/88 H Blood Pressure Mean 123 Blood Pressure Position Lying Pulse Oximetry 91 86 L 84 L Oxygen Delivery Method Nasal Cannula Room Air Oxygen Flow Rate 4 Sepsis Recent Fever Within 48 Hours Yes Sepsis New/Unexplained Change in Mental Status No Sepsis Action Taken by Nursing Physician Notified 08/16/21 15:00 08/16/21 15:30 08/16/21 16:00 Temperature Temperature Source Pulse Rate 100 H 103 H 103 H Pulse Rate from SpO2 Sensor 100 H 96 H 112 H Pulse Rhythm Pulse Strength Respiratory Rate 39 H 38 H 38 H Respiratory Effort / Characteristics Respiratory Depth Respiratory Pattern Blood Pressure 159/62 H 154/79 H Blood Pressure Mean 94 104 Blood Pressure Position Pulse Oximetry 90 90 87 L Oxygen Delivery Method Room Air Oxygen Flow Rate Sepsis Recent Fever Within 48 Hours Sepsis New/Unexplained Change in Mental Status Sepsis Action Taken by Nursing 08/16/21 16:10 08/16/21 16:11 08/16/21 16:20 Temperature Temperature Source Pulse Rate 98 H 95 H Pulse Rate from SpO2 Sensor 89 Pulse Rhythm Pulse Strength Respiratory Rate 20 20 Respiratory Effort / Characteristics Respiratory Depth Respiratory Pattern Blood Pressure Blood Pressure Mean Blood Pressure Position Pulse Oximetry 92 94 92 Oxygen Delivery Method Nasal Cannula Oxygen Flow Rate 5 2 5 Sepsis Recent Fever Within 48 Hours Sepsis New/Unexplained Change in Mental Status Sepsis Action Taken by Nursing 08/16/21 16:30 08/16/21 16:40 08/16/21 16:50 Temperature Temperature Source Pulse Rate 93 H 100 H 89 Pulse Rate from SpO2 Sensor 85 89 94 H Pulse Rhythm Pulse Strength Respiratory Rate 20 20 20 Respiratory Effort / Characteristics Respiratory Depth Respiratory Pattern Blood Pressure 166/61 H Blood Pressure Mean 96 Blood Pressure Position Pulse Oximetry 91 92 92 Oxygen Delivery Method Oxygen Flow Rate 5 Sepsis Recent Fever Within 48 Hours Sepsis New/Unexplained Change in Mental Status Sepsis Action Taken by Nursing 08/16/21 17:00 08/16/21 17:10 08/16/21 17:20 Temperature Temperature Source Pulse Rate 105 H 100 H 90 Pulse Rate from SpO2 Sensor 104 H 101 H 98 H Pulse Rhythm Pulse Strength Respiratory Rate 20 41 H 31 H Respiratory Effort / Characteristics Respiratory Depth Respiratory Pattern Blood Pressure 134/69 Blood Pressure Mean 90 Blood Pressure Position Pulse Oximetry 92 87 L 91 Oxygen Delivery Method Oxygen Flow Rate Sepsis Recent Fever Within 48 Hours Sepsis New/Unexplained Change in Mental Status Sepsis Action Taken by Nursing 08/16/21 17:50 08/16/21 18:00 Temperature 36.9 C Temperature Source Pulse Rate 96 H 93 H Pulse Rate from SpO2 Sensor 96 H 93 H Pulse Rhythm Pulse Strength Respiratory Rate 37 H 34 H Respiratory Effort / Characteristics Respiratory Depth Respiratory Pattern Blood Pressure Blood Pressure Mean Blood Pressure Position Pulse Oximetry 87 L 89 L Oxygen Delivery Method Oxygen Flow Rate Sepsis Recent Fever Within 48 Hours Sepsis New/Unexplained Change in Mental Status Sepsis Action Taken by Nursing Laboratory Data Result diagrams: 08/17/21 05:08 08/17/21 05:08 Lab Results 08/16/21 08/16/21 08/16/21 Range/Units 14:40 14:55 14:55 WBC 17.08 H (4.8-10.8) K/uL RBC 4.48 L (4.7-6.1) M/uL Hgb 14.2 (14.0-18.0) g/dL Hct 43.1 (42-52) % MCV 96.2 (80-100) fL MCH 31.7 (25-34) pg MCHC 32.9 (32-36) g/dL RDW Std Deviation 51.6 H (36.4-46.3) fL RDW Coeff of Juma 14.7 H (11.5-14.5) % Plt Count 154 (130-400) K/uL MPV 10.9 H (7.4-10.4) fL Immature Gran % (Auto) 1.2 % Neut % (Auto) 85.4 % Lymph % (Auto) 5.2 % [place] % (Auto) 8.1 % Eos % (Auto) 0.0 % Baso % (Auto) 0.1 % Neut # (Auto) 14.57 H (1.4-6.5) K/uL Lymph # (Auto) 0.89 L (1.2-3.4) K/uL [place] # (Auto) 1.39 H (0.11-0.59) K/uL Eos # (Auto) 0.00 (0-0.5) K/uL Baso # (Auto) 0.02 (0-0.2) K/uL Immature Gran # (Auto) 0.21 H (0.00-0.02) K/uL PT 11.2 (9.0-12.0) Seconds INR 1.1 (0.9-1.1) APTT 28.5 (21.0-31.0) Seconds PTT Ratio 1.0 Sodium (136-145) mmol/L Potassium (3.5-5.1) mmol/L Chloride (98-107) mmol/L Carbon Dioxide (21-32) mmol/L Anion Gap (3-11) BUN (6-23) mg/dl Creatinine (0.6-1.4) mg/dl Est Cr Clr Drug Dosing ml/min Est GFR ( Amer) ml/min Est GFR (Non-Af Amer) ml/min BUN/Creatinine Ratio (10-20) Glucose (70-99(Fasting)) mg/dl Lactate (0.4-2.0) mmol/L Calcium (8.5-10.1) mg/dl Magnesium (1.7-2.4) mg/dl Total Bilirubin (0.2-1.0) mg/dl AST (13-39) U/L ALT (7-52) U/L Alkaline Phosphatase (34-104) U/L Total Protein (6.0-8.3) gm/dl Albumin (3.4-5.0) gm/dl Globulin (2.5-4.0) gm/dl Albumin/Globulin Ratio (0.9-2) Procalcitonin (0-0.5) ng/ml Urine Color Urine Appearance (Clear) Urine pH (4.5-7.5) Ur Specific Gordon (1.000-1.030) Urine Protein (Negative) Urine Glucose (UA) (Negative) Urine Ketones (Negative) Urine Blood (Negative) Urine Nitrite (Negative) Urine Bilirubin (Negative) Urine Urobilinogen (Negative) Ur Leukocyte Esterase (Negative) Urine WBC (Auto) (0-5) /hpf Urine RBC (Auto) (0-4) /hpf U Hyaline Cast (Auto) (0-5) /lpf U Epithel Cells (Auto) (0-5) /lpf Urine Bacteria (Auto) (Negative) Ur Renal Epithelial Cell (0-5) /lpf Adenovirus (PCR) Not Detected (NotDetected) B. pertussis DNA (PCR) Not Detected (NotDetected) B.parapertussis DNA PCR Not Detected (NotDetected) C. pneumoniae DNA (PCR) Not Detected (NotDetected) Coronavirus OC43 (PCR) Not Detected (NotDetected) Coronavirus HKU1 (PCR) Not Detected (NotDetected) Coronavirus 229E (PCR) Not Detected (NotDetected) SARS-CoV-2 (PCR) Not Detected (NotDetected) Coronavirus NL63 (PCR) Not Detected (NotDetected) Human Metapneumovir PCR Not Detected (NotDetected) Influenza Type A (PCR) Not Detected (NotDetected) Influenza Type B (PCR) Not Detected (NotDetected) M. pneumoniae (PCR) Not Detected (NotDetected) Parainfluenza 1 (PCR) Not Detected (NotDetected) Parainfluenza 2 (PCR) Not Detected (NotDetected) Parainfluenza 3 (PCR) Not Detected (NotDetected) Parainfluenza 4 (PCR) Not Detected (NotDetected) RSV (PCR) Not Detected (NotDetected) Entero/Rhino (PCR) DETECTED A* (NotDetected) 08/16/21 08/16/21 08/16/21 Range/Units 14:55 14:55 14:55 WBC (4.8-10.8) K/uL RBC (4.7-6.1) M/uL Hgb (14.0-18.0) g/dL Hct (42-52) % MCV (80-100) fL MCH (25-34) pg MCHC (32-36) g/dL RDW Std Deviation (36.4-46.3) fL RDW Coeff of Juma (11.5-14.5) % Plt Count (130-400) K/uL MPV (7.4-10.4) fL Immature Gran % (Auto) % Neut % (Auto) % Lymph % (Auto) % [place] % (Auto) % Eos % (Auto) % Baso % (Auto) % Neut # (Auto) (1.4-6.5) K/uL Lymph # (Auto) (1.2-3.4) K/uL [place] # (Auto) (0.11-0.59) K/uL Eos # (Auto) (0-0.5) K/uL Baso # (Auto) (0-0.2) K/uL Immature Gran # (Auto) (0.00-0.02) K/uL PT (9.0-12.0) Seconds INR (0.9-1.1) APTT (21.0-31.0) Seconds PTT Ratio Sodium 135 L (136-145) mmol/L Potassium 3.4 L (3.5-5.1) mmol/L Chloride 91 L (98-107) mmol/L Carbon Dioxide 30 (21-32) mmol/L Anion Gap 14 H (3-11) BUN 24 H (6-23) mg/dl Creatinine 3.59 H (0.6-1.4) mg/dl Est Cr Clr Drug Dosing 18.4 ml/min Est GFR ( Amer) 17.9 ml/min Est GFR (Non-Af Amer) 15.4 ml/min BUN/Creatinine Ratio 6.7 L (10-20) Glucose 184 H (70-99(Fasting)) mg/dl Lactate 1.9 (0.4-2.0) mmol/L Calcium 9.9 (8.5-10.1) mg/dl Magnesium 1.9 (1.7-2.4) mg/dl Total Bilirubin 1.7 H (0.2-1.0) mg/dl AST 22 (13-39) U/L ALT 17 (7-52) U/L Alkaline Phosphatase 109 H (34-104) U/L Total Protein 8.7 H (6.0-8.3) gm/dl Albumin 4.5 (3.4-5.0) gm/dl Globulin 4.2 H (2.5-4.0) gm/dl Albumin/Globulin Ratio 1.1 (0.9-2) Procalcitonin 1.16 H (0-0.5) ng/ml Urine Color Urine Appearance (Clear) Urine pH (4.5-7.5) Ur Specific Gordon (1.000-1.030) Urine Protein (Negative) Urine Glucose (UA) (Negative) Urine Ketones (Negative) Urine Blood (Negative) Urine Nitrite (Negative) Urine Bilirubin (Negative) Urine Urobilinogen (Negative) Ur Leukocyte Esterase (Negative) Urine WBC (Auto) (0-5) /hpf Urine RBC (Auto) (0-4) /hpf U Hyaline Cast (Auto) (0-5) /lpf U Epithel Cells (Auto) (0-5) /lpf Urine Bacteria (Auto) (Negative) Ur Renal Epithelial Cell (0-5) /lpf Adenovirus (PCR) (NotDetected) B. pertussis DNA (PCR) (NotDetected) B.parapertussis DNA PCR (NotDetected) C. pneumoniae DNA (PCR) (NotDetected) Coronavirus OC43 (PCR) (NotDetected) Coronavirus HKU1 (PCR) (NotDetected) Coronavirus 229E (PCR) (NotDetected) SARS-CoV-2 (PCR) (NotDetected) Coronavirus NL63 (PCR) (NotDetected) Human Metapneumovir PCR (NotDetected) Influenza Type A (PCR) (NotDetected) Influenza Type B (PCR) (NotDetected) M. pneumoniae (PCR) (NotDetected) Parainfluenza 1 (PCR) (NotDetected) Parainfluenza 2 (PCR) (NotDetected) Parainfluenza 3 (PCR) (NotDetected) Parainfluenza 4 (PCR) (NotDetected) RSV (PCR) (NotDetected) Entero/Rhino (PCR) (NotDetected) 08/16/21 Range/Units 17:44 WBC (4.8-10.8) K/uL RBC (4.7-6.1) M/uL Hgb (14.0-18.0) g/dL Hct (42-52) % MCV (80-100) fL MCH (25-34) pg MCHC (32-36) g/dL RDW Std Deviation (36.4-46.3) fL RDW Coeff of Juma (11.5-14.5) % Plt Count (130-400) K/uL MPV (7.4-10.4) fL Immature Gran % (Auto) % Neut % (Auto) % Lymph % (Auto) % [place] % (Auto) % Eos % (Auto) % Baso % (Auto) % Neut # (Auto) (1.4-6.5) K/uL Lymph # (Auto) (1.2-3.4) K/uL [place] # (Auto) (0.11-0.59) K/uL Eos # (Auto) (0-0.5) K/uL Baso # (Auto) (0-0.2) K/uL Immature Gran # (Auto) (0.00-0.02) K/uL PT (9.0-12.0) Seconds INR (0.9-1.1) APTT (21.0-31.0) Seconds PTT Ratio Sodium (136-145) mmol/L Potassium (3.5-5.1) mmol/L Chloride (98-107) mmol/L Carbon Dioxide (21-32) mmol/L Anion Gap (3-11) BUN (6-23) mg/dl Creatinine (0.6-1.4) mg/dl Est Cr Clr Drug Dosing ml/min Est GFR ( Amer) ml/min Est GFR (Non-Af Amer) ml/min BUN/Creatinine Ratio (10-20) Glucose (70-99(Fasting)) mg/dl Lactate (0.4-2.0) mmol/L Calcium (8.5-10.1) mg/dl Magnesium (1.7-2.4) mg/dl Total Bilirubin (0.2-1.0) mg/dl AST (13-39) U/L ALT (7-52) U/L Alkaline Phosphatase (34-104) U/L Total Protein (6.0-8.3) gm/dl Albumin (3.4-5.0) gm/dl Globulin (2.5-4.0) gm/dl Albumin/Globulin Ratio (0.9-2) Procalcitonin (0-0.5) ng/ml Urine Color Yellow Urine Appearance Cloudy A (Clear) Urine pH 7.0 (4.5-7.5) Ur Specific Gordon 1.012 (1.000-1.030) Urine Protein 3+ H (Negative) Urine Glucose (UA) Negative (Negative) Urine Ketones Trace H (Negative) Urine Blood 1+ H (Negative) Urine Nitrite Negative (Negative) Urine Bilirubin Negative (Negative) Urine Urobilinogen Negative (Negative) Ur Leukocyte Esterase 1+ H (Negative) Urine WBC (Auto) 5-10 H (0-5) /hpf Urine RBC (Auto) 0-4 (0-4) /hpf U Hyaline Cast (Auto) 10-30 H (0-5) /lpf U Epithel Cells (Auto) >30 H (0-5) /lpf Urine Bacteria (Auto) 4+ H (Negative) Ur Renal Epithelial Cell 0-5 (0-5) /lpf Adenovirus (PCR) (NotDetected) B. pertussis DNA (PCR) (NotDetected) B.parapertussis DNA PCR (NotDetected) C. pneumoniae DNA (PCR) (NotDetected) Coronavirus OC43 (PCR) (NotDetected) Coronavirus HKU1 (PCR) (NotDetected) Coronavirus 229E (PCR) (NotDetected) SARS-CoV-2 (PCR) (NotDetected) Coronavirus NL63 (PCR) (NotDetected) Human Metapneumovir PCR (NotDetected) Influenza Type A (PCR) (NotDetected) Influenza Type B (PCR) (NotDetected) M. pneumoniae (PCR) (NotDetected) Parainfluenza 1 (PCR) (NotDetected) Parainfluenza 2 (PCR) (NotDetected) Parainfluenza 3 (PCR) (NotDetected) Parainfluenza 4 (PCR) (NotDetected) RSV (PCR) (NotDetected) Entero/Rhino (PCR) (NotDetected) Administered Medications Calcium Acetate (Calcium Acetate 667 Mg Cap/Tab) 667 mg PO AC [facility] Stop: 09/16/21 07:29 Last Admin: 08/17/21 11:36 Dose: 667 mg Documented by: [id number] Admin: 08/17/21 08:37 Dose: 667 mg Documented by: [id number] Carvedilol (Carvedilol 6.25 Mg Tab) 6.25 mg PO BIDM [facility] Stop: 09/15/21 20:59 Last Admin: 08/17/21 08:34 Dose: 6.25 mg Documented by: [id number] Admin: 08/16/21 22:26 Dose: 6.25 mg Documented by: [id number] Cyanocobalamin (Cyanocobalamin (B-12) 500 Mcg Tablet) 1,000 mcg PO QAM [facility] Stop: 09/16/21 08:59 Last Admin: 08/17/21 08:37 Dose: 1,000 mcg Documented by: [id number] Ezetimibe (Ezetimibe 10 Mg Tablet) 10 mg PO DAILY [facility] Stop: 09/16/21 08:59 Last Admin: 08/17/21 08:34 Dose: 10 mg Documented by: [id number] Ferrous Sulfate (Ferrous Sulfate 325 Mg Tab) 325 mg PO QAM [facility] Stop: 09/16/21 08:59 Last Admin: 08/17/21 08:38 Dose: 325 mg Documented by: [id number] Heparin Sodium (Porcine) (Heparin Sod 5,000 Unit/0.5 Ml Vial) 5,000 units SQ Q12 [facility] Stop: 09/15/21 20:59 Last Admin: 08/17/21 08:35 Dose: 5,000 units Documented by: [id number] Admin: 08/16/21 22:26 Dose: Not Given Documented by: [id number] Piperacillin Sod/Tazobactam (Sod 3.375 gm/ Dextrose) 115 mls @ 28.75 mls/hr IV Q12H [facility]; Protocol Stop: 08/19/21 05:59 Last Infusion: 08/17/21 11:46 Dose: 0 mls/hr Documented by: [id number] Admin: 08/17/21 06:32 Dose: 28.8 mls/hr Documented by: [id number] Insulin Aspart (Insulin Aspart Per Unit) 0 units SC ACHS [facility] Stop: 09/15/21 20:59 Last Admin: 08/17/21 11:32 Dose: Not Given Documented by: [id number] Cosigned by: [id number] Admin: 08/17/21 08:05 Dose: Not Given Documented by: [id number] Cosigned by: [id number] Admin: 08/16/21 21:24 Dose: Not Given Documented by: [id number] Insulin Glargine (Insulin Glargine Solostar 100 Units/Ml 3 Ml Pen) 10 units SC PM [facility] Stop: 09/15/21 20:59 Last Admin: 08/16/21 22:26 Dose: 10 units Documented by: [id number] Cosigned by: [id number] Ipratropium [place] (Ipratropium [place] Neb Soln 0.02% 2.5 Ml Vial) 0.5 mg INH Q6R [facility] Stop: 09/15/21 20:29 Last Admin: 08/17/21 07:32 Dose: 0.5 mg Documented by: [id number] Admin: 08/17/21 01:25 Dose: 0.5 mg Documented by: [id number] Admin: 08/16/21 20:52 Dose: 0.5 mg Documented by: [id number] Levalbuterol HCl (Levalbuterol 1.25mg/0.5ml Neb) 1.25 mg INH Q6R [place] Stop: 09/15/21 20:29 Last Admin: 08/17/21 07:32 Dose: 1.25 mg Documented by: [id number] Admin: 08/17/21 01:25 Dose: 1.25 mg Documented by: [id number] Admin: 08/16/21 20:50 Dose: 1.25 mg Documented by: [id number] Vitamin D (Cholecalciferol 1,000 Units 25 Mcg Tab) 2,000 units PO QAM [place] Stop: 09/16/21 08:59 Last Admin: 08/17/21 08:37 Dose: 2,000 units Documented by: [id number] Discontinued Medications Acetaminophen (Acetaminophen 500 Mg Tab) 1,000 mg PO NOW STA Stop: 08/16/21 15:03 Last Admin: 08/16/21 16:17 Dose: 1,000 mg Documented by: [id number] Ampicillin Sodium/Sulbactam Sodium 3,000 mg/ Sodium Chloride 108 mls @ 216 mls/hr IV NOW STA Stop: 08/16/21 15:40 Last Infusion: 08/16/21 16:34 Dose: 0 mls/hr Documented by: [id number] Admin: 08/16/21 15:53 Dose: 216 mls/hr Documented by: [id number] Vancomycin HCl 1,500 mg/ (Sodium Chloride) 530 mls @ 200 mls/hr IV NOW ONE Stop: 08/16/21 23:38 Last Infusion: 08/17/21 00:01 Dose: 0 mls/hr Documented by: [id number] Admin: 08/16/21 21:22 Dose: 200 mls/hr Documented by: [id number] Piperacillin Sod/Tazobactam (Sod 3.375 gm/ Dextrose) 115 mls @ 230 mls/hr IV NOW ONE; Protocol Stop: 08/16/21 21:14 Last Infusion: 08/16/21 22:46 Dose: 0 mls/hr Documented by: [id number] Admin: 08/16/21 21:21 Dose: 230 mls/hr Documented by: [id number] Imaging Data Radiologist's Impression: Chest X-Ray 08/16/21 14:54 XR chest 1V portable HISTORY: 76 years-old Male SEPSIS acute sepsis COMPARISON: Chest radiographs 01/26/2021 TECHNIQUE: Portable AP view of the chest FINDINGS: The cardiac silhouette is enlarged with findings suggestive of pulmonary arterial hypertension. Atherosclerosis of the thoracic aorta. Dual lumen right IJ hemodialysis catheter appears unchanged. No pneumothorax, pleural effusion or overt pulmonary edema. Mild retrocardiac left basilar opacities. 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 IMPRESSION: 1. Cardiomegaly without pulmonary edema. 2. Mild retrocardiac left basilar opacities suggestive of atelectasis versus pneumonitis. ACT 112: Negative or not required by law. The above report was generated using voice recognition software. It may contain grammatical, syntax or spelling errors. Electronically signed by: Billy Vitale M.D. 08/16/2021 3:09 PM Discharge Plan Visit Data Chief Complaint: Weakness ED Provider: Galen Vasques Discharge Problem: Fever, Pneumonia, Hypoxia Discharge Instructions Interventions: ED Discharge Assessment Last Done: 08/16/21 20:00
[2021-08-16 15:23] LABS: INR 1.1 (0.9-1.1); Partial Thromboplastin Time 28.5 Seconds (21.0-31.0); Prothrombin Time 11.2 Seconds (9.0-12.0)
[2021-08-16 15:36] LABS: Albumin Globulin Ratio 1.1 (0.9-2); Albumin Level 4.5 gm/dl (3.4-5.0); BUN Creatinine Ratio 6.7 (10-20); Bilirubin,Total 1.7 mg/dl (0.2-1.0); Calcium 9.9 mg/dl (8.5-10.1); Creatinine Clr Calc Pharmacy 18.4 ml/min; Est GFR (African American) 17.9 ml/min; Est GFR (Non-African American) 15.4 ml/min; Globulin 4.2 gm/dl (2.5-4.0); Magnesium 1.9 mg/dl (1.7-2.4); Potassium 3.4 mmol/L (3.5-5.1); Total Protein 8.7 gm/dl (6.0-8.3)
[2021-08-16 16:25] LABS: Adenovirus PCR Not Detected (NotDetected); Bordetella parapertussis PCR Not Detected (NotDetected); Bordetella pertussis PCR Not Detected (NotDetected); Chlamydia pneumoniae PCR Not Detected (NotDetected); Coronavirus 229E PCR Not Detected (NotDetected); Coronavirus CoV-2 (COVID19)PCR Not Detected (NotDetected); Coronavirus HKU1 PCR Not Detected (NotDetected); Coronavirus NL63 PCR Not Detected (NotDetected); Coronavirus OC43PCR Not Detected (NotDetected); Human Metapneumovirus PCR Not Detected (NotDetected); Influenza A PCR Not Detected (NotDetected); Influenza B PCR Not Detected (NotDetected); Mycoplasma pneumoniae PCR Not Detected (NotDetected); Parainfluenza Virus 1 PCR Not Detected (NotDetected); Parainfluenza Virus 2 PCR Not Detected (NotDetected); Parainfluenza Virus 3 PCR Not Detected (NotDetected); Parainfluenza Virus 4 PCR Not Detected (NotDetected); Respiratory Syncytial VirusPCR Not Detected (NotDetected)
[2021-08-16 16:35] LABS: Rhinovirus/Enterovirus PCR DETECTED (NotDetected)
[2021-08-16 17:57] LABS: Appearance Urine Cloudy (Clear); Bacteria Urine Automated 4+ (Negative); Bilirubin Urine Negative (Negative); Blood Urine 1+ (Negative); Color Urine Yellow; Epithelial Cell Urine Auto >30 /lpf (0-5); Glucose Urine UA Negative (Negative); Ketones Urine Trace (Negative); Leukocyte Esterase Urine 1+ (Negative); Nitrite Urine Negative (Negative); Protein Urine 3+ (Negative); RBC Urine Automated 0-4 /hpf (0-4); Specific Gravity Urine 1.012 (1.000-1.030); Urobilinogen Urine Negative (Negative)
[2021-08-16 18:17] LABS: Renal Epithelial Cells Urine 0-5 /lpf (0-5)
--- NOTE | 2021-08-16 18:45 | History & Physical Report ---
Date of Service August 16, 2021 Assessment & Plan (1) Pneumonia: (2) Acute respiratory failure with hypoxia: (3) Sepsis: Plan: Patient is 76-year-old male with PMH ESRD on HD, atrial fibrillation not on anticoagulation secondary to retroperitoneal bleed while on Coumadin in 01/2021, DM II, HTN, dyslipidemia presented to ER from dialysis for noted shortness of breath and episode of vomiting today. Pt reports productive cough x several days. Today in ER patient febrile at 38.5C, P: 115, R: 22, 193/88, 84% on room air up to 94% on nasal cannula. WBC: 17, lactate: 1.9, procalcitonin: 1.2, negative COVID-19 PCR. Bio fire + entero/rhino. CXR: Mild retrocardiac left basilar opacity suggestive of atelectasis versus pneumonitis In ER given Unasyn, Tylenol Blood cultures pending MRSA swab pending Sputum culture pending Urine culture pending Zosyn, vancomycin Xopenex/Atrovent nebs Incentive spirometer, flutter valve CBC, BMP in a.m. (4) ESRD (end stage renal disease) on dialysis: Plan: HD on Saturday schedule HD today 08/16/2021. Patient reports did not finish dialysis Continue renal meds Nephrology consult for assistance with dialysis (5) Atrial fibrillation: Plan: Chronic atrial fibrillation not on anticoagulation secondary to retroperitoneal bleed on IV heparin/Coumadin ER initially tachycardic 114 down to 90s Continue carvedilol IV Lopressor as needed (6) Diabetes mellitus, type II: Plan: A1c: 8.6 on 06/29/2021 Continue Lantus Novolog sliding scale per protocol (7) HTN (hypertension): Plan: Continue carvedilol Hold Lasix and reassess tomorrow (8) Hyperlipidemia: Plan: Continue Zetia DVT Prophylaxis Heparin SQ Full code as per discussion with pt Follows with Dr Fiona Novoa for routine care Pt was seen and care coordinated with Dr Galdamez. See addendum History of Present Illness Chief Complaint: SOB Primary Care Provider: Fiona Novoa DO Patient is 76-year-old male with PMH ESRD on HD, atrial fibrillation not on anticoagulation secondary to retroperitoneal bleed while on Coumadin in 01/2021, DM II, HTN, dyslipidemia presented to ER from dialysis for noted shortness of breath and episode of vomiting. Patient reports past several days has been having cough productive of green/yellow sputum. He reports he has been having chills, has not been taking his temperature at home. Reports some mild nasal congestion. Reports decreased appetite the past 1 to 2 days. Patient reports his son who he has been around also has cough. Patient denies any noted shortness of breath. He reports while at dialysis staff members noted that patient seemed more short of breath. Patient also reports 1 episode of vomiting while at dialysis today. Denies diaphoresis, hematemesis, diarrhea, melena, hematochezia THAKKAR, dizziness, syncope, vision changes, neck pain, CP, palpitations, mopped assist, sore throat, choking, otalgia, abdominal pain, paresthesias, weakness, extremity weakness, extremity edema, rashes, urinary symptoms. Today in ER patient febrile at 38.5C, P: 115, R: 22, 193/88, 84% on room air up to 94% on nasal cannula. WBC: 17, lactate: 1.9, procalcitonin: 1.2, negative COVID-19 PCR. Bio fire + entero/rhino. In ER given Unasyn, Tylenol. Allergies Allergy/AdvReac Type Severity Reaction Status Date / Time LUCHO Inhibitors Allergy Unknown Unknown Verified 08/16/21 15:24 reaction (Per S records) sitagliptin AdvReac Unknown Lightheadedness, Verified 08/16/21 15:24 upper abdominal pain Luhokbf-SCI-TdO Reductase AdvReac Unknown Myopathy Verified 08/16/21 15:24 Inhibitor [Yemqzhp-Vva-Ahm Reductase Inhibitor] Home Medications Medication Instructions Recorded Confirmed Type cholecalciferol (vitamin D3) 25 2,000 unit PO QAM 10/27/18 08/16/21 History mcg (1,000 unit) capsule (Vitamin D3) cyanocobalamin (vitamin B-12) 1,000 mcg PO QAM 10/27/18 08/16/21 History 1,000 mcg tablet (Vitamin B-12) famotidine 20 mg tablet 20 mg PO 3XWK 06/01/20 08/16/21 History carvedilol 6.25 mg tablet 6.25 mg PO BID 01/04/21 08/16/21 History calcium acetate 667 mg tablet 667 mg PO TIDWMEAL 05/04/21 08/16/21 History ferrous sulfate 325 mg (65 mg 325 mg PO QAM 05/04/21 08/16/21 History iron) tablet (iron) furosemide 40 mg tablet 40 mg PO UD 05/04/21 08/16/21 History ezetimibe 10 mg tablet 10 mg PO DAILY 08/16/21 08/16/21 History insulin glargine 100 unit/mL (3 10 unit SUBCUT QPM 08/16/21 08/16/21 History mL) subcutaneous pen (Lantus Solostar U-100 Insulin) Past Med/Surg History Medical History (Updated 08/16/21 @ 20:49 by Autumn Chun PA-C) 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 Noted during 12/2020 [facility] admission for anaplasmosis/retroperitoneal bleed. Evaluated by cardiology who felt patient is "definitely not a candidate for long-term anticoagulation at this point" after development of significant anemia in setting of large retroperitoneal bleed. Recommended continued beta yohan. RECENT ZIOPATCH - NO RESULTS YET Chronic kidney disease (CKD), stage V Currently on transplant list Depression Diabetes mellitus, type II Previous oral meds since discontinued- per patient, they are attempting diet/exercise changes RECENTLY BLOOD SUGARS HAVE BEEN ELEVATED - MORNINGS START OUT 230-250/ APPOINTMENT UPCOMING TO ADDRESS - NOT SCHEDULED AT PRESENT TIME (DAVID AND DR CRYSTAL) Dialysis patient MWF > [facility] in [place] (via port) Gastric ulcer hx HTN (hypertension) Hyperlipidemia Retroperitoneal hematoma Found during 12/2020 [facility] admission > Surgical History History of cataract surgery R/L History of esophagogastroduodenoscopy (EGD) EGD (01/11/21): MAC at [facility] History of peritoneal dialysis Insertion of CAPD catheter (09/23/20): Grade view 2, MAC #3, ETT 7.5 at [facility] Reposition of dialysis catheter, perm cath placement (10/28/20): Grade view 2, Tian #2, ETT 7.5 at [facility] Peritoneal dialysis catheter removal (11/22/20): MAC at [facility] History of tooth extraction Hx of abdominal surgery removal of Peritoneal Diaylsis cath (11/2020) S/P colonoscopy with polypectomy S/P dialysis catheter insertion Family History Mother Diabetes Breast cancer Family history of diabetes mellitus Father Family history of diabetes mellitus Other No family history of adverse response to anesthesia Social History Smoking Status: Never smoker Tobacco Type: Cigarettes Second Hand Exposure: Yes (hx); Hx Alcohol Use: Yes Alcohol type: beer and hard liquor Alcohol Intake Frequency Comment: 3-4 beers a week Hx Substance Use: No Preferred Language: Pashto Communication Ability: Effective Visual Impairment: No Limitations Oil Expert Required: No Beliefs That Will Affect Care: None marital status: / Current Living Situation: Alone Current Living Situation Comment: Son Galen Corral lives next door. How many Children do You have: 2 Feels Safe at Home: Yes Assistive Devices: Hearing Aid - Left Review of Systems Review of Systems: All systems reviewed & are unremarkable except as noted in HPI & below Physical Exam Physical Exam: General: no acute distress, WDWN Head: normocephalic, atraumatic Eyes: PERRL, EOM's intact, conjunctiva non-injected, anicteric ENT: normal inspection external ears, nose, mucous membranes moist Neck: supple, trachea midline Lungs: Currently on oxymask sats 96%, RR: 22, able to speak in sentences, +diffuse rhonchi CV: irregularly irregular, rate 94, no pretibial edema Abd: normal BS, soft, non-tender Ext: no cyanosis, no calf tenderness Neuro: A&O x 3, no focal deficits noted, normal affect Skin: warm, dry Results & Data Results & Data ([facility]) Vital Signs (Past 12 Hours) Vital Signs Temp Pulse Resp BP Pulse Ox 08/16/21 18:00 36.9 C 93 H 34 H 89 L 08/16/21 17:50 96 H 37 H 87 L 08/16/21 17:20 90 31 H 91 08/16/21 17:10 100 H 41 H 87 L 08/16/21 17:00 105 H 20 134/69 92 08/16/21 16:50 89 20 92 08/16/21 16:40 100 H 20 92 08/16/21 16:30 93 H 20 166/61 H 91 08/16/21 16:20 95 H 20 92 08/16/21 16:11 94 08/16/21 16:10 98 H 20 92 08/16/21 16:00 103 H 38 H 154/79 H 87 L 08/16/21 15:30 103 H 38 H 159/62 H 90 08/16/21 15:00 100 H 39 H 90 08/16/21 14:58 38.5 C H 115 H 22 193/88 H 84 L 08/16/21 14:41 109 H 40 H 86 L 08/16/21 14:38 91 Laboratory Results Short CBC 08/16/21 08/16/21 Range/Units 14:40 14:55 WBC 17.08 H (4.8-10.8) K/uL Hgb 14.2 (14.0-18.0) g/dL Hct 43.1 (42-52) % Plt Count 154 (130-400) K/uL Entero/Rhino (PCR) DETECTED A* (NotDetected) BMP 08/16/21 14:55 Sodium 135 L Potassium 3.4 L Chloride 91 L Carbon Dioxide 30 BUN 24 H Creatinine 3.59 H Glucose 184 H Calcium 9.9 Liver Function 08/16/21 Range/Units 14:55 Total Bilirubin 1.7 H (0.2-1.0) mg/dl AST 22 (13-39) U/L ALT 17 (7-52) U/L Alkaline Phosphatase 109 H (34-104) U/L Albumin 4.5 (3.4-5.0) gm/dl Urine 08/16/21 Range/Units 17:44 Urine Color Yellow Urine Appearance Cloudy A (Clear) Urine pH 7.0 (4.5-7.5) Ur Specific [place] 1.012 (1.000-1.030) Urine Protein 3+ H (Negative) Urine Glucose (UA) Negative (Negative) Diagnostic Findings Chest X-Ray 08/16/21 14:54 XR chest 1V portable HISTORY: 76 years-old Male SEPSIS acute sepsis COMPARISON: Chest radiographs 01/26/2021 TECHNIQUE: Portable AP view of the chest FINDINGS: The cardiac silhouette is enlarged with findings suggestive of pulmonary arterial hypertension. Atherosclerosis of the thoracic aorta. Dual lumen right IJ hemodialysis catheter appears unchanged. No pneumothorax, pleural effusion or overt pulmonary edema. Mild retrocardiac left basilar opacities. 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 IMPRESSION: 1. Cardiomegaly without pulmonary edema. 2. Mild retrocardiac left basilar opacities suggestive of atelectasis versus pneumonitis. ACT 112: Negative or not required by law. The above report was generated using voice recognition software. It may contain grammatical, syntax or spelling errors. Electronically signed by: Billy Vitale M.D. 08/16/2021 3:09 PM ECG Rate (beats per minute): 114 Rhythm: atrial fibrillation Code Status & VTE Plan VTE Prophylaxis Plan VTE Prophylaxis will be ordered: Yes Supervising Physician Co-Signing Physician Notes Patient interviewed and examined independently. Chart reviewed. Case discussed with Autumn VILLEGAS and agree with the documentation above. In summary, this is a 76 year old male with ESRD on dialysis MWF through permacath, and other medical problems as above presented to the ED from dialysis for chills and weakness. States ongoing cough with green yellow sputum expectoration for the past 2 days. Had chills and weakness today at dialysis and could not get much dialysis and was sent here. Noted to be hypoxic and put on NC by EMS. Also noted to have fever of 38.5 in ED. Denies chest pain, nausea, vomiting. Makes little urine but denies dysuria. Hemodynamically stable. CXR with possible PNA. UA abnormal. Given unasyn in ED. Patient not toxic looking during my encounter. AAOx3, chest with coarse breath sounds bilaterally, mild tachycardia, abd benign, Permacath site clear. No LE edema or rash. Will admit with sepsis, likely due to PNA vs UTI. R/o bacteremia given Permacath in place. Continue empiric antibiotics pending blood, sputum and urine culture. Consult nephro for dialysis. Rest per the note above. 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
[2021-08-16] MEDS ORDERED: VANCOMYCIN CONSULT ACTIVE PRN (19:56)
[2021-08-16] MEDS ORDERED: GLUCOSE 10 TABS/TUBE PO PRN (19:56)
[2021-08-16] MEDS ORDERED: METOPROLOL TARTRATE 1 MG/ML VIAL IV PRN (19:56)
[2021-08-16] MEDS ORDERED: DEXTROSE 50% 50 ML SYRINGE IV PRN (19:56)
[2021-08-16] MEDS ORDERED: PIPERACILLIN/TAZOBACTAM 2.25 GM in DEXTROSE 5% 100 ML IV SCH (19:56)
[2021-08-16] MEDS ORDERED: GLUCOSE 40% GEL 15 GM TUBE PO PRN (19:56)
[2021-08-16] MEDS ORDERED: ONDANSETRON INJ 2 MG/ML 2 ML VIAL IV PRN (19:56)
[2021-08-16] MEDS ORDERED: POLYETHYLENE (MIRALAX) 17 GM PACK PO PRN (19:56)
[2021-08-16] MEDS ORDERED: GLUCAGON FOR INJ 1 MG VIAL SQ PRN (19:56)
[2021-08-16] MEDS ORDERED: ACETAMINOPHEN 325 MG TAB PO PRN (19:56)
[2021-08-16] MEDS ORDERED: CARBOHYDRATES FOR HYPOGLYCEMIA PO PRN (19:56)
[2021-08-16] MEDS ORDERED: XOPENEX/ATROVENT 1.25mg/0.5MG NEB COMBO NEB SCH (19:56)
[2021-08-16] MEDS ORDERED: PIPERACILLIN/TAZOBACTAM 3.375 GM in DEXTROSE 5% 100 ML IV ONE (20:45)
[2021-08-16] MEDS: LEVALBUTEROL 1.25MG/0.5ML NEB INH SCH (20:50)
[2021-08-16] MEDS: IPRATROPIUM BROMIDE NEB SOLN 0.02% 2.5 ML VIAL INH SCH (20:52)
[2021-08-16] MEDS ORDERED: VANCOMYCIN HCL 1,500 MG in SODIUM CHLORIDE 0.9% 500 ML IV ONE (21:00)
[2021-08-16] MEDS: INSULIN ASPART PER UNIT SC SCH (21:24)
[2021-08-16] MEDS: carvediloL 6.25 MG TAB PO SCH (22:26)
[2021-08-16] MEDS: INSULIN GLARGINE SOLOSTAR 100 UNITS/ML 3 ML PEN SC SCH (22:26)
[2021-08-16] MEDS: HEPARIN SOD 5,000 UNIT/0.5 ML VIAL SQ SCH (22:26)
[2021-08-17] MEDS: IPRATROPIUM BROMIDE NEB SOLN 0.02% 2.5 ML VIAL INH SCH ×4 (01:25→20:26)
[2021-08-17] MEDS: LEVALBUTEROL 1.25MG/0.5ML NEB INH SCH ×4 (01:25→20:26)
[2021-08-17 05:20] LABS: Basophils # (auto) 0.02 K/uL (0-0.2); Basophils % (auto) 0.2 %; Hematocrit (blood only) 39.7 % (42-52); Immature Granulocytes # (auto) 0.06 K/uL (0.00-0.02); Immature Granulocytes % (auto) 0.5 %; Lymphocytes # (auto) 0.74 K/uL (1.2-3.4); Mean Corpuscular Hemoglobin 32.1 pg (25-34); Mean Corpuscular Hgb Conc 32.7 g/dL (32-36); Monocytes # (auto) 1.36 K/uL (0.11-0.59); Monocytes % (auto) 11.1 %; Neutrophils # (auto) 10.07 K/uL (1.4-6.5); Neutrophils % (auto) 82.2 %; Platelet Count 122 K/uL (130-400); RDW Coefficient of Variation 14.7 % (11.5-14.5); RDW Standard Deviation 53.1 fL (36.4-46.3); Red Blood Count 4.05 M/uL (4.7-6.1); White Blood Count 12.25 K/uL (4.8-10.8)
[2021-08-17 05:47] LABS: BUN Creatinine Ratio 8.1 (10-20); Calcium 8.8 mg/dl (8.5-10.1); Creatinine Clr Calc Pharmacy 13.8 ml/min; Est GFR (African American) 12.6 ml/min; Est GFR (Non-African American) 10.9 ml/min; Potassium 3.8 mmol/L (3.5-5.1)
[2021-08-17] MEDS: PIPERACILLIN/TAZOBACTAM 3.375 GM in DEXTROSE 5% 100 ML IV SCH ×2 (06:32→19:52)
[2021-08-17] MEDS: INSULIN ASPART PER UNIT SC SCH ×4 (08:05→21:10)
[2021-08-17] MEDS: EZETIMIBE 10 MG TABLET PO SCH (08:34)
[2021-08-17] MEDS: carvediloL 6.25 MG TAB PO SCH ×2 (08:34→17:49)
[2021-08-17] MEDS: HEPARIN SOD 5,000 UNIT/0.5 ML VIAL SQ SCH ×2 (08:35→21:19)
[2021-08-17] MEDS: CALCIUM ACETATE 667 MG CAP/TAB PO SCH ×3 (08:37→17:48)
[2021-08-17] MEDS: CYANOCOBALAMIN (B-12) 500 MCG TABLET PO SCH (08:37)
[2021-08-17] MEDS: CHOLECALCIFEROL 1,000 UNITS 25 MCG TAB PO SCH (08:37)
[2021-08-17] MEDS: FERROUS SULFATE 325 MG TAB PO SCH (08:38)
--- NOTE | 2021-08-17 11:13 | Pharmacy Report ---
Pharmacy PK ABX Note - Date of Service August 17, 2021 - Assessment and Plan Assessment * 76 year old M receiving VANCOMYCIN + ZOSYN for empiric 48 hr abx coverage of sepsis. Pt reported to have c/o cough for several days, presented to ED with c/o weakness following HD along w/ episode NV. * Pertinent microbiologic data includes: + enterovirus/rhinovirus on resp BioFire. Nasal MRSA swab ordered yesterday however still not collected to date. Blood, urine and sputum cx's pending. * CXR read as atelectasis vs pneumonitis * Procal 1.16 however this is not reliable in setting of HD Plan Vancomycin * Loading dose: 1500 mg IV x 1 given in ED yesterday evening * Patient is not a candidate for AUC dosing methods due to ESRD on 3x weekly HD * Random vanco level this AM = 19.3. Will not redose vanco this AM as pt is reported to be anuric. Rather will obtain random level in AM tomorrow as he is likely to be dialyzed. * Plan to redose vanco when random level </= 15-20 or anticipated to be so following HD. Zosyn * eCrCl < 20, BMI < 35, continue 3.375gm EI Q 12 hrs Pharmacy will continue to follow and will adjust dose/frequency as necessary. Thank you. Pharmacy has transitioned to AUC monitoring for vancomycin. AUC/CHAZ is the preferred PK/PD target and is associated with decreased risk of nephrotoxicity compared to traditional trough targets.
--- NOTE | 2021-08-17 14:58 | Consultation Report ---
NEPHROLOGY CONSULTATION NOTE DATE OF SERVICE: 08/17/2021 REASON FOR CONSULT: Dialysis patient admitted with shortness of breath related with COVID pneumonia. HISTORY OF PRESENT ILLNESS: The patient is a 76-year-old male with ESRD, on chronic hemodialysis Sat, Saturday, Saturday as well as multiple other medical problems including atrial fibrillation, not on anticoagulation, longstanding diabetes, hypertension. He presented to the Emergency Department ye sterday from the dialysis unit where he was noted to be increasingly short of breath with an episode of vomiting. He was also complaining of productive cough for many days prior to hospitalization. In the Emergency Department, the patient was febrile at 38.5 degrees Celsius and was hypoxic with 84% o n room air and was 94% on oxygen. He was negative for COVID-19, but was positive for enterovirus and has been admitted for further management and treatment. His last dialysis was yesterday, but it nicanor ears it was not the full session. His electrolytes are normal. He does not have any evidence of ove rt pulmonary edema. He was also positive for gram-negative bacteria in the urine culture. PAST MEDICAL HISTORY: Already detailed in HPI. PAST SURGICAL HISTORY: Cataract, EGD, PD catheter insertion and removal, tooth extraction, colonosco py, dialysis catheter insertion. ALLERGY LIST: LUCHO INHIBITOR, SITAGLIPTIN, STATINS. MEDICATIONS: Home medication list was reviewed in detail and is as per the reconciliation list. FAMILY HISTORY: Negative for renal disease or dialysis. SOCIAL HISTORY: Never smoked. Frequent alcohol intake, almost daily. He is a . He currentl y lives alone. His son lives next door. No oxygen at home. REVIEW OF SYSTEMS: Positive for productive cough, increasing shortness of breath for the last few da ys. PHYSICAL EXAMINATION: GENERAL: Elderly white male who is not in major respiratory distress, but he does appear somewhat un comfortable. He is on 4 liters of oxygen and saturating 99%. VITAL SIGNS: Blood pressure 118/55, pulse rate 78, temperature 36.9, and 99% on 6 liters of oxygen. HEENT: Mucous membrane is moist. NECK: Supple. No jugular venous distention. CHEST: Bilateral decreased breath sounds, occasional crackles. CARDIOVASCULAR: S1 and S2 regular. Soft systolic murmur heard. ABDOMEN: Soft, nontender. EXTREMITIES: Show trace edema. LABORATORY TEST: Infection panel was positive for rhinovirus, otherwise everything was negative. Ch est x-ray shows cardiomegaly, but no overt pulmonary edema. Blood work from this morning shows WBC count of 12,000, but it was 17,000 yesterday, hemoglobin 13, c reatinine 4.79, BUN 39. Sodium 136, potassium 3.8. Procalcitonin 1.16. Urine culture was positive for gram-negative bacilli. ASSESSMENT AND PLAN: A 76-year-old male with end-stage renal disease, on chronic hemodialysis Saturday , Saturday, Saturday, admitted with few days history of respiratory symptoms. He was positive for rhi novirus, but also had urine culture which was positive. He is currently admitted with a diagnosis of respiratory failure and sepsis. I have been consulted for dialysis management. 1. End-stage renal disease: His dialysis days are Saturday, Saturday, Saturday. He will be getting di alysis tomorrow. Does not have any electrolyte problem at this time and does not have overt pulmonar y edema. He does have respiratory failure that appears to be more pulmonary in etiology. We will do dialysis for 3 hours 30 minutes tomorrow and we will try to take 2-3 kilos of fluid off. Hemoglobin is quite high and does not need erythropoietin stimulating agent. 2. Respiratory failure with rhinovirus: This is as per primary team. Continue broad-spectrum antib iotics as he is getting right now. Job ID: [id number]
--- NOTE | 2021-08-17 16:01 | Electrocardiogram Report ---
Test Reason : Blood Pressure : / mmHG Vent. Rate : 114 BPM Atrial Rate : 111 BPM P-R Int : 000 ms QRS Dur : 086 ms QT Int : 290 ms P-R-T Axes : 000 -59 082 degrees QTc Int : 399 ms Atrial fibrillation with rapid ventricular response Left anterior fascicular block Abnormal ECG When compared with ECG of 05-JAN-2021 05:32, No significant change Confirmed by Huy Villanueva ([id number]) on 08/17/2021 4:01:14 PM Referred By: Confirmed By:Huy Villanueva
--- NOTE | 2021-08-17 16:59 | Hospitalist Progress Note ---
Date of Service August 17, 2021 Assessment & Plan (1) Pneumonia: (2) Acute respiratory failure with hypoxia: (3) Sepsis: Plan: Patient is a 76 yr male with H/O ESRD on HD, atrial fibrillation not on anticoagulation secondary to retroperitoneal bleed while on Coumadin in 01/2021, DM II, HTN, dyslipidemia presented to ER from dialysis for noted shortness of breath and episode of vomiting and productive cough x several days. Acute respiratory failure with hypoxia Sepsis Pneumonia Entero/Rhino Virus Infection --CXR:Cardiomegaly without pulmonary edema. Mild retrocardiac left basilar opacities suggestive of atelectasis versus pneumonitis. Elevated procalcitonin Negative COVID screen Could have secondary bacterial infection Sputum culture pending Blood cultures negative to date Continue vancomycin, Zosyn Continue supplemental oxygen as needed Continue Nebs Incentive spirometer, flutter valve Urinary tract infection-POA Urine culture growing gram-negative bacilli On antibiotics as above Follow-up final cultures (4) ESRD (end stage renal disease) on dialysis: Plan: HD on Saturday schedule HD today 08/16/2021. Patient reports did not finish dialysis Continue renal meds Appreciate Nephrology Input (5) Atrial fibrillation: Plan: Chronic atrial fibrillation not on anticoagulation secondary to retroperitoneal bleed Continue carvedilol IV Lopressor as needed (6) Diabetes mellitus, type II: Plan: A1c: 8.6 on 06/29/2021 Continue Lantus Novolog sliding scale per protocol (7) HTN (hypertension): Plan: Continue carvedilol Plan to resume lasix tomorrow (8) Hyperlipidemia: Plan: Continue Zetia DVT Px Heparin SQ Code Status Full code Disposition PT/OT prior to discharge Admission and Anticipated Discharge Date Admission Date: August 16, 2021 Subjective Patient is seen and examined at bedside States feeling better today Denies any dyspnea Reports having cough with brownish expectoration Denies any chest pain, nausea, vomiting, abdominal pain Offers no other complaints Review of Systems Review of Systems: All systems reviewed & are unremarkable except as noted in Subjective Physical Exam Physical Exam: Physical Exam: Vitals signs as noted above General Appearance:Thin, frail, elderly, no apparent distress Head: normocephalic, Atraumatic,+Hearing aids Eyes: normal inspection, EOMI Neck: supple, Trachea midline Respiratory/Chest: Normal breath sounds, B/L Rhonchi, No accessory muscle use Cardiovascular: Irregularly irregular, No murmur Abdomen/GI:Soft, Non tender, Bowel sounds present Extremities/Musculoskeletal:normal inspection, no edema Neurologic/Psych:AAOX3, grossly no focal neurological deficits Skin: normal color, warm Results & Data Results & Data ([facility]) Vital Signs (Past 12 Hours) Vital Signs Pulse Pulse Resp BP Pulse Ox 08/17/21 15:00 96 08/17/21 14:50 97 08/17/21 14:40 96 08/17/21 14:30 101 H 90 08/17/21 14:20 94 H 15 74 L 08/17/21 14:10 90 16 98 08/17/21 14:01 90 14 111/60 78 L 08/17/21 14:00 86 19 96 08/17/21 13:50 82 15 89 L 08/17/21 13:43 78 16 99 08/17/21 13:40 75 18 98 08/17/21 13:30 79 20 118/55 L 100 08/17/21 13:20 80 20 99 08/17/21 13:10 80 21 96 08/17/21 13:00 81 20 98/48 L 98 08/17/21 12:50 83 21 99 08/17/21 12:40 78 20 99 08/17/21 12:30 83 22 103/49 L 99 08/17/21 12:20 80 22 99 08/17/21 12:10 86 14 98 08/17/21 12:01 87 24 68 L 08/17/21 12:00 84 14 88 L 08/17/21 11:50 78 17 96 08/17/21 11:40 88 24 94 08/17/21 11:30 80 24 102/50 L 95 08/17/21 11:20 88 14 95 08/17/21 11:10 83 22 95 08/17/21 11:00 84 26 H 97/51 L 98 08/17/21 10:50 83 14 97 08/17/21 10:40 86 26 H 96 08/17/21 10:32 96 H 23 103/54 L 94 08/17/21 10:30 101 H 17 87 L 08/17/21 10:27 23 108/44 L 84 L 08/17/21 10:20 98 H 18 66 L 08/17/21 10:10 90 23 95 08/17/21 10:00 87 25 H 90 08/17/21 09:50 89 28 H 86 L 08/17/21 09:40 82 16 97 08/17/21 09:30 95 H 22 109/52 L 98 08/17/21 09:20 87 21 99 08/17/21 09:10 87 0 L 98 08/17/21 09:00 88 2 L 99/50 L 96 08/17/21 08:50 88 94 08/17/21 08:40 87 15 97 08/17/21 08:30 87 29 H 131/70 94 08/17/21 08:20 87 22 98 08/17/21 08:10 83 23 96 08/17/21 08:00 89 25 H 120/53 L 97 08/17/21 07:50 90 18 96 08/17/21 07:40 93 H 7 L 96 08/17/21 07:35 96 H 20 95 08/17/21 07:30 90 16 109/55 L 95 08/17/21 07:20 89 24 88 L 08/17/21 07:10 90 23 93 08/17/21 07:00 89 17 118/59 L 98 08/17/21 06:50 93 H 13 98 08/17/21 06:40 91 H 24 85 L 08/17/21 06:30 84 26 H 126/49 L 92 08/17/21 06:20 87 29 H 92 08/17/21 06:10 95 H 15 91 08/17/21 06:02 97 H 27 H 110/77 90 08/17/21 06:00 87 19 90 08/17/21 05:30 90 23 142/55 H 91 08/17/21 05:00 93 H 21 149/81 H 91 Laboratory Results Short CBC 08/17/21 Range/Units 05:08 WBC 12.25 H (4.8-10.8) K/uL Hgb 13.0 L (14.0-18.0) g/dL Hct 39.7 L (42-52) % Plt Count 122 L (130-400) K/uL BMP 08/17/21 05:08 Sodium 136 Potassium 3.8 Chloride 95 L Carbon Dioxide 25 BUN 39 H Creatinine 4.79 H* D Glucose 96 Calcium 8.8 Urine 06/01/22 Range/Units 17:44 Urine Color Yellow Urine Appearance Cloudy A (Clear) Urine pH 7.0 (4.5-7.5) Ur Specific [place] 1.012 (1.000-1.030) Urine Protein 3+ H (Negative) Urine Glucose (UA) Negative (Negative) (1) Diabetes mellitus, type II Diabetes mellitus complication status: without complication 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
[2021-08-17] MEDS: INSULIN GLARGINE SOLOSTAR 100 UNITS/ML 3 ML PEN SC SCH (21:19)
[2021-08-18] MEDS: IPRATROPIUM BROMIDE NEB SOLN 0.02% 2.5 ML VIAL INH SCH (00:27)
[2021-08-18] MEDS: LEVALBUTEROL 1.25MG/0.5ML NEB INH SCH (00:27)
[2021-08-18] MEDS ORDERED: XOPENEX/ATROVENT 1.25mg/0.5MG NEB COMBO NEB PRN (01:30)
[2021-08-18] MEDS ORDERED: IPRATROPIUM BROMIDE NEB SOLN 0.02% 2.5 ML VIAL INH PRN (01:30)
[2021-08-18] MEDS ORDERED: LEVALBUTEROL 1.25MG/0.5ML NEB INH PRN (01:30)
[2021-08-18] MEDS: PIPERACILLIN/TAZOBACTAM 3.375 GM in DEXTROSE 5% 100 ML IV SCH ×2 (05:31→18:14)
[2021-08-18] MEDS ORDERED: SODIUM CHLORIDE 0.9% 1000ML 1,000 ML IV PRN (07:00)
[2021-08-18] MEDS ORDERED: HEPARIN SOD (PORCINE) 1000 UNIT/ML IV ONE (07:00)
[2021-08-18 07:31] LABS: Hemoglobin 12.3 g/dL (14.0-18.0); Mean Corpuscular Hemoglobin 31.8 pg (25-34); Mean Corpuscular Hgb Conc 33.2 g/dL (32-36); Mean Corpuscular Volume 95.6 fL (80-100); Mean Platelet Volume 10.7 fL (7.4-10.4); Platelet Count 143 K/uL (130-400); RDW Coefficient of Variation 14.7 % (11.5-14.5); RDW Standard Deviation 51.4 fL (36.4-46.3); Red Blood Count 3.87 M/uL (4.7-6.1); White Blood Count 6.47 K/uL (4.8-10.8)
[2021-08-18] MEDS: CHOLECALCIFEROL 1,000 UNITS 25 MCG TAB PO SCH (07:42)
[2021-08-18] MEDS: EZETIMIBE 10 MG TABLET PO SCH (07:42)
[2021-08-18] MEDS: CALCIUM ACETATE 667 MG CAP/TAB PO SCH ×3 (07:42→17:34)
[2021-08-18] MEDS: CYANOCOBALAMIN (B-12) 500 MCG TABLET PO SCH (07:42)
[2021-08-18] MEDS: FERROUS SULFATE 325 MG TAB PO SCH (07:43)
[2021-08-18 08:00] LABS: Calcium 8.5 mg/dl (8.5-10.1); Creatinine Clr Calc Pharmacy 9.2 ml/min; Est GFR (African American) 8.4 ml/min; Est GFR (Non-African American) 7.3 ml/min; Potassium 3.4 mmol/L (3.5-5.1)
[2021-08-18] MEDS: INSULIN ASPART PER UNIT SC SCH ×4 (08:10→20:31)
[2021-08-18] MEDS ORDERED: FAMOTIDINE 20 MG TAB PO SCH (09:00)
[2021-08-18] MEDS: HEPARIN SOD (PORCINE) 1000 UNIT/ML IV SCH (09:21)
--- NOTE | 2021-08-18 10:45 | Dialysis Progress Note ---
Date of Service August 18, 2021 Assessment & Plan Admission and Anticipated Discharge Date Admission Date: August 16, 2021 Subjective Subjective S--Seen during dialysis. BP is lowish as usual. CVC fine. No SOB. No o2 now. PHYSICAL EXAMINATION: GENERAL: Elderly white male who is not in major respiratory distress, but he does appear somewhat uncomfortable. He is on 4 liters of oxygen and saturating 99%. VITAL SIGNS: Blood pressure 118/55, pulse rate 78, temperature 36.9, and 99% on 6 liters of oxygen. HEENT: Mucous membrane is moist. NECK: Supple. No jugular venous distention. CHEST: Bilateral decreased breath sounds, occasional crackles. CARDIOVASCULAR: S1 and S2 regular. Soft systolic murmur heard. ABDOMEN: Soft, nontender. EXTREMITIES: Show trace edema. LABORATORY TEST: Infection panel was positive for rhinovirus, otherwise everything was negative. Chest x-ray shows cardiomegaly, but no overt pulmonary edema. ASSESSMENT AND PLAN: A 76-year-old male with end-stage renal disease, on chronic hemodialysis Saturday, Saturday, Saturday, admitted with few days history of respiratory symptoms. He was positive for rhinovirus, but also had urine culture which was positive. He is currently admitted with a diagnosis of respiratory failure and sepsis. I have been consulted for dialysis management. 1. End-stage renal disease: His dialysis days are Saturday, Saturday, Saturday. Will do dialyis as ordered for 3.5 hrs on 2 k bath Does not have any electrolyte problem at this time and does not have overt pulmonary edema. He does have respiratory failure that appears to be more pulmonary in etiology. We will do dialysis for 3 hours 30 minutes tomorrow and we will try to take 2-3 kilos of fluid off. Hemoglobin is quite high and does not need erythropoietin stimulating agent. 2. Respiratory failure with rhinovirus: This is as per primary team. Continue broad-spectrum antibiotics as he is getting right now. Results & Data ([facility]) Vital Signs (Past 12 Hours) Vital Signs Temp Pulse Pulse Resp BP BP Pulse Ox 08/18/21 10:00 86 100/62 08/18/21 09:30 85 113/61 08/18/21 08:58 36.8 C 92 H 08/18/21 08:01 95 08/18/21 07:53 36.3 C L 82 20 142/68 H 97 06/03/22 03:28 16 97 08/18/21 03:17 36.7 C 79 18 127/71 97 08/18/21 00:50 83 15 96 08/17/21 23:36 81 08/17/21 22:45 36.5 C 84 20 131/66 95
[2021-08-18] MEDS: carvediloL 6.25 MG TAB PO SCH ×2 (12:36→17:34)
[2021-08-18] MEDS: HEPARIN SOD 5,000 UNIT/0.5 ML VIAL SQ SCH ×2 (12:36→20:09)
--- NOTE | 2021-08-18 18:08 | Hospitalist Progress Note ---
Date of Service August 18, 2021 Assessment & Plan (1) Pneumonia: (2) Acute respiratory failure with hypoxia: (3) Sepsis: Plan: Patient is a 76 yr male with H/O ESRD on HD, atrial fibrillation not on anticoagulation secondary to retroperitoneal bleed while on Coumadin in 01/2021, DM II, HTN, dyslipidemia presented to ER from dialysis for noted shortness of breath and episode of vomiting and productive cough x several days. Acute respiratory failure with hypoxia Sepsis Pneumonia Entero/Rhino Virus Infection --CXR:Cardiomegaly without pulmonary edema. Mild retrocardiac left basilar opacities suggestive of atelectasis versus pneumonitis. Elevated procalcitonin Negative COVID screen Could have secondary bacterial infection Sputum culture: Moderate normal pema Blood cultures negative to date Continue vancomycin, Zosyn>> Zosyn Continue Nebs Incentive spirometer, flutter valve Weaned off of supplemental oxygen Urinary tract infection-POA Urine culture growing Klebsiella On antibiotics as above (4) ESRD (end stage renal disease) on dialysis: Plan: HD on Saturday schedule Continue renal meds Appreciate Nephrology Input Dialysis as per nephrology (5) Atrial fibrillation: Plan: Chronic atrial fibrillation not on anticoagulation secondary to retroperitoneal bleed Continue carvedilol IV Lopressor as needed (6) Diabetes mellitus, type II: Plan: A1c: 8.6 on 06/29/2021 Continue Lantus Novolog sliding scale per protocol (7) HTN (hypertension): Plan: Continue carvedilol Also on Lasix (8) Hyperlipidemia: Plan: Continue Zetia DVT Px Heparin SQ Code Status Full code Disposition PT/OT: Recommends Home Admission and Anticipated Discharge Date Admission Date: August 16, 2021 Subjective Patient is seen and examined at bedside Had hemodialysis today Sitting in chair during my encounter Doing well today Off supplemental oxygen Less cough today Denies any chest pain, dyspnea, nausea, vomiting, abdominal pain Review of Systems Review of Systems: All systems reviewed & are unremarkable except as noted in Subjective Physical Exam Physical Exam: Physical Exam: Vitals signs as noted above General Appearance:Thin, frail, elderly, no apparent distress Head: normocephalic, Atraumatic,+Hearing aids Eyes: normal inspection, EOMI Neck: supple, Trachea midline Respiratory/Chest: Normal breath sounds, B/L Rhonchi, No accessory muscle use Cardiovascular: Irregularly irregular, No murmur Abdomen/GI:Soft, Non tender, Bowel sounds present Extremities/Musculoskeletal:normal inspection, no edema Neurologic/Psych:AAOX3, grossly no focal neurological deficits Skin: normal color, warm Results & Data Results & Data ([facility]) Vital Signs (Past 12 Hours) Vital Signs Temp Pulse Pulse Resp BP BP Pulse Ox 08/18/21 17:32 36.6 C 08/18/21 15:04 89 08/18/21 14:00 97 H 20 148/69 H 97 08/18/21 12:30 36.8 C 90 111/64 08/18/21 12:00 81 92/52 L 08/18/21 11:30 94 H 101/64 08/18/21 11:00 91 H 99/55 L 08/18/21 10:30 86 100/55 L 08/18/21 10:00 86 100/62 08/18/21 09:30 85 113/61 08/18/21 08:58 36.8 C 92 H 08/18/21 08:01 95 08/18/21 08:00 79 08/18/21 07:53 36.3 C L 82 20 142/68 H 97 Laboratory Results Short CBC 08/18/21 Range/Units 06:42 WBC 6.47 (4.8-10.8) K/uL Hgb 12.3 L (14.0-18.0) g/dL Hct 37.0 L (42-52) % Plt Count 143 (130-400) K/uL BMP 08/18/21 06:42 Sodium 135 L Potassium 3.4 L Chloride 94 L Carbon Dioxide 26 BUN 67 H D Creatinine 6.68 H* D Glucose 85 Calcium 8.5 (1) Diabetes mellitus, type II Diabetes mellitus complication status: without complication 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
[2021-08-18] MEDS ORDERED: FUROSEMIDE 40 MG TAB PO SCH (18:45)
[2021-08-18] MEDS: INSULIN GLARGINE SOLOSTAR 100 UNITS/ML 3 ML PEN SC SCH (20:31)
[2021-08-19] MEDS: PIPERACILLIN/TAZOBACTAM 3.375 GM in DEXTROSE 5% 100 ML IV SCH (05:18)
[2021-08-19 07:02] LABS: HBSAG NON-REACTIVE (NON-REACTIVE); Hepatitis B Surface Ab, Quant 323 mIU/mL (> OR = 10)
[2021-08-19 07:12] LABS: Hematocrit (blood only) 39.9 % (42-52); Hemoglobin 13.2 g/dL (14.0-18.0); Mean Corpuscular Hemoglobin 31.7 pg (25-34); Mean Corpuscular Hgb Conc 33.1 g/dL (32-36); Mean Corpuscular Volume 95.9 fL (80-100); Mean Platelet Volume 10.8 fL (7.4-10.4); Platelet Count 163 K/uL (130-400); RDW Coefficient of Variation 14.5 % (11.5-14.5); RDW Standard Deviation 51.6 fL (36.4-46.3); Red Blood Count 4.16 M/uL (4.7-6.1); White Blood Count 6.23 K/uL (4.8-10.8)
[2021-08-19] MEDS: CALCIUM ACETATE 667 MG CAP/TAB PO SCH ×2 (08:15→12:48)
[2021-08-19] MEDS: INSULIN ASPART PER UNIT SC SCH ×2 (08:16→12:48)
[2021-08-19] MEDS: CYANOCOBALAMIN (B-12) 500 MCG TABLET PO SCH (08:16)
[2021-08-19] MEDS: CHOLECALCIFEROL 1,000 UNITS 25 MCG TAB PO SCH (08:16)
[2021-08-19] MEDS: FERROUS SULFATE 325 MG TAB PO SCH (08:17)
[2021-08-19] MEDS: carvediloL 6.25 MG TAB PO SCH (08:17)
[2021-08-19] MEDS: HEPARIN SOD 5,000 UNIT/0.5 ML VIAL SQ SCH (08:17)
[2021-08-19 08:25] LABS: Calcium 8.7 mg/dl (8.5-10.1); Potassium 3.5 mmol/L (3.5-5.1)
[2021-08-19 09:11] LABS: BUN Creatinine Ratio 9.9 (10-20); Creatinine Clr Calc Pharmacy 10.4 ml/min; Est GFR (African American) 9.9 ml/min; Est GFR (Non-African American) 8.5 ml/min
[2021-08-19] MEDS: EZETIMIBE 10 MG TABLET PO SCH (09:40)
--- NOTE | 2021-08-19 12:48 | Hospitalist Progress Note ---
Date of Service August 19, 2021 Assessment & Plan (1) Pneumonia: (2) Acute respiratory failure with hypoxia: (3) Sepsis: Plan: Patient is a 76 yr male with H/O ESRD on HD, atrial fibrillation not on anticoagulation secondary to retroperitoneal bleed while on Coumadin in 01/2021, DM II, HTN, dyslipidemia presented to ER from dialysis for noted shortness of breath and episode of vomiting and productive cough x several days. Acute respiratory failure with hypoxia Sepsis Pneumonia Entero/Rhino Virus Infection --CXR:Cardiomegaly without pulmonary edema. Mild retrocardiac left basilar opacities suggestive of atelectasis versus pneumonitis. Elevated procalcitonin Negative COVID screen Could have secondary bacterial infection Sputum culture: Moderate normal pema Blood cultures negative to date Continue vancomycin, Zosyn>> Zosyn Continue Nebs Incentive spirometer, flutter valve Weaned off of supplemental oxygen 2 STEP: Did not qualify for Oxygen Urinary tract infection-POA Urine culture growing Klebsiella On antibiotics as above (4) ESRD (end stage renal disease) on dialysis: Plan: HD on Saturday schedule Continue renal meds Appreciate Nephrology Input Dialysis as per nephrology (5) Atrial fibrillation: Plan: Chronic atrial fibrillation not on anticoagulation secondary to retroperitoneal bleed Continue carvedilol IV Lopressor as needed (6) Diabetes mellitus, type II: Plan: A1c: 8.6 on 06/29/2021 Continue Lantus Novolog sliding scale per protocol (7) HTN (hypertension): Plan: Continue carvedilol Also on Lasix (8) Hyperlipidemia: Plan: Continue Zetia DVT Px Heparin SQ Code Status Full code Disposition PT/OT: Recommends Home Admission and Anticipated Discharge Date Admission Date: August 16, 2021 Subjective Patient is seen and examined at bedside Doing well today No new complaints Had 2 step earlier today Denies any chest pain, dyspnea, nausea, vomiting, abdominal pain Review of Systems Review of Systems: All systems reviewed & are unremarkable except as noted in Subjective Physical Exam Physical Exam: Physical Exam: Vitals signs as noted above General Appearance:Thin, frail, elderly, no apparent distress Head: normocephalic, Atraumatic,+Hearing aids Eyes: normal inspection, EOMI Neck: supple, Trachea midline Respiratory/Chest: Normal breath sounds, B/L mild basal Rhonchi, No accessory muscle use Cardiovascular: Irregularly irregular, No murmur Abdomen/GI:Soft, Non tender, Bowel sounds present Extremities/Musculoskeletal:normal inspection, no edema Neurologic/Psych:AAOX3, grossly no focal neurological deficits Skin: normal color, warm Results & Data Results & Data ([facility]) Vital Signs (Past 12 Hours) Vital Signs Temp Pulse Pulse Pulse Pulse Pulse Resp 08/19/21 11:29 80 73 82 08/19/21 09:28 77 08/19/21 08:22 36.5 C 79 18 08/19/21 04:00 36.5 C 83 18 Resp Resp Resp BP Pulse Ox Pulse Ox Pulse Ox 08/19/21 11:29 20 18 18 97 96 08/19/21 09:28 08/19/21 08:22 125/70 95 08/19/21 04:00 112/69 95 Pulse Ox 08/19/21 11:29 96 08/19/21 09:28 08/19/21 08:22 08/19/21 04:00 Laboratory Results Short CBC 08/19/21 Range/Units 06:38 WBC 6.23 (4.8-10.8) K/uL Hgb 13.2 L (14.0-18.0) g/dL Hct 39.9 L (42-52) % Plt Count 163 (130-400) K/uL BMP 08/19/21 06:38 Sodium 134 L Potassium 3.5 Chloride 95 L Carbon Dioxide 24 BUN 58 H Creatinine 5.86 H* D Glucose 86 Calcium 8.7 (1) Diabetes mellitus, type II Diabetes mellitus complication status: without complication 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
--- NOTE | 2021-08-19 14:02 | Discharge Summary ---
Date of Service August 19, 2021 Admission HPI Per Admitting Provider Patient is 76-year-old male with PMH ESRD on HD, atrial fibrillation not on anticoagulation secondary to retroperitoneal bleed while on Coumadin in 01/2021, DM II, HTN, dyslipidemia presented to ER from dialysis for noted shortness of breath and episode of vomiting. Patient reports past several days has been having cough productive of green/yellow sputum. He reports he has been having chills, has not been taking his temperature at home. Reports some mild nasal congestion. Reports decreased appetite the past 1 to 2 days. Patient reports his son who he has been around also has cough. Patient denies any noted sh ortness of breath. He reports while at dialysis staff members noted that patient seemed more short of breath. Patient also reports 1 episode of vomiting while at dialysis today. Denies diaphoresis, hematemesis, diarrhea, melena, hematochezia THAKKAR, dizziness, syncope, vision changes, neck pain, CP, palpitations, mopped assist, sore throat, choking, otalgia, abdominal pain, paresthesias, weakness, extremity weakness, extremity edema, rashes, urinary symptoms. Today in ER patient febrile at 38.5C, P: 115, R: 22, 193/88, 84% on room air up to 94% on nasal cannula. WBC: 17, lactate: 1.9, procalcitonin: 1.2, negative COVID-19 PCR. Bio fire + entero/rhino. In ER given Unasyn, Tylenol. Admission Exam Per Admitting Provider Physical Exam Physical Exam: General: no acute distress, WDWN Head: normocephalic, atraumatic Eyes: PERRL, EOM's intact, conjunctiva non-injected, anicteric ENT: normal inspection external ears, nose, mucous membranes moist Neck: supple, trachea midline Lungs: Currently on oxymask sats 96%, RR: 22, able to speak in sentences, +diffuse rhonchi CV: irregularly irregular, rate 94, no pretibial edema Abd: normal BS, soft, non-tender Ext: no cyanosis, no calf tenderness Neuro: A&O x 3, no focal deficits noted, normal affect Skin: warm, dry Principal Diagnosis Acute respiratory failure with hypoxia Sepsis Pneumonia Entero/Rhino Virus Infection Urinary tract infection Discharge Data Allergies Allergy/AdvReac Type Severity Reaction Status Date / Time LUCHO Inhibitors Allergy Unknown Unknown Verified 08/16/21 15:24 reaction (Per S records) sitagliptin AdvReac Unknown Lightheadedness, Verified 08/16/21 15:24 upper abdominal pain Mizruhx-KMG-XzD Reductase AdvReac Unknown Myopathy Verified 08/16/21 15:24 Inhibitor [Soiwktw-Hzr-Fbt Reductase Inhibitor] Consultations 08/16/21 17:36 ED Decision to Admit Stat 08/17/21 07:00 Consult Nephrology Routine Hospital Course (1) Pneumonia: (2) Acute respiratory failure with hypoxia: (3) Sepsis: Patient is a 76 yr male with H/O ESRD on HD, atrial fibrillation not on anticoagulation secondary to retroperitoneal bleed while on Coumadin in 01/2021, DM II, HTN, dyslipidemia presented to ER from dialysis for noted shortness of breath and episode of vomiting and productive cough x several days. Acute respiratory failure with hypoxia Sepsis Pneumonia Entero/Rhino Virus Infection --CXR:Cardiomegaly without pulmonary edema. Mild retrocardiac left basilar opacities suggestive of atelectasis versus pneumonitis. Elevated procalcitonin Negative COVID screen Could have secondary bacterial infection Sputum culture: Moderate normal pema Blood cultures negative to date Continue vancomycin, Zosyn>> Zosyn Continue Nebs Incentive spirometer, flutter valve Weaned off of supplemental oxygen 2 STEP: Did not qualify for Oxygen Urinary tract infection-POA Urine culture growing Klebsiella On antibiotics as above (4) ESRD (end stage renal disease) on dialysis: HD on Saturday schedule Continue renal meds Appreciate Nephrology Input Dialysis as per nephrology (5) Atrial fibrillation: Chronic atrial fibrillation not on anticoagulation secondary to retroperitoneal bleed Continue carvedilol IV Lopressor as needed (6) Diabetes mellitus, type II: A1c: 8.6 on 06/29/2021 Continue Lantus Novolog sliding scale per protocol (7) HTN (hypertension): Continue carvedilol Also on Lasix (8) Hyperlipidemia: Continue Zetia DVT Px Heparin SQ Code Status Full code Disposition PT/OT: Recommends Home Total Time Total Time Spent Total Time Spent (In Minutes): 44 minutes Discharge Plan Discharge Items Patient Disposition: Home - Self-Care Reason For Visit: PNEUMONIA Discharge Diagnosis: Acute respiratory failure with hypoxia Sepsis Pneumonia Entero/Rhino Virus Infection Urinary tract infection Activity: Per Instructions section Exercise/Sports: Gradually increase as tolerated Non-emergency contact: Primary Care Provider Call non-emergency contact if: you have any medication questions, your symptoms worsen, your pain is concerning for you and you have a fever Follow-up/Referrals: Fiona Novoa, [Primary Care Provider] - Diet: Carb Consistent or DM2 and Dialysis Renal Addtl Attending Provider Instructions: Follow-up with your primary care physician in 1 week. Please call for appointment Follow-up with your plasterer maintenance for dialysis. --- Complete antibiotic course (Cefdinir and Doxycycline) as prescribed: --- Take doxycycline 100 mg twice a day for 4 days --- Take cefdinir 300 mg every other day after your dialysis on Saturday, Saturday and Saturday only. --- Your final blood cultures are pending at the time of discharge. Follow-up with your physician for results. Seek immediate medical attention if your symptoms reoccur or worsen Please take all medications as instructed on discharge list below. Please call if you have any questions or problems. You can reach a [facility] hospitalist on duty at [facility] 24 hours a day by calling [phone] Pending Studies at Discharge: Yes Studies:: Final Blood cultures Stand-Alone Forms: My [facility] Fullscreen, Smoking Cessation Medications and DC Order Prescriptions: New cefdinir 300 mg capsule 300 mg PO Q48H Qty: 3 RF: 0 doxycycline hyclate 100 mg tablet 100 mg PO BID 3 Days Qty: 8 RF: 0 Continued cyanocobalamin (vitamin B-12) [Vitamin B-12] 1,000 mcg Tablet 1,000 mcg PO QAM RF: 0 cholecalciferol (vitamin D3) [Vitamin D3] 1,000 unit Capsule 2,000 unit PO QAM RF: 0 famotidine 20 mg Tablet 20 mg PO 3XWK RF: 0 carvedilol 6.25 mg tablet 6.25 mg PO BID RF: 0 furosemide 40 mg Tablet 40 mg PO UD RF: 0 ferrous sulfate [iron] 325 mg (65 mg iron) Tablet 325 mg PO QAM RF: 0 calcium acetate 667 mg Tablet 667 mg PO TIDWMEAL RF: 0 ezetimibe 10 mg tablet 10 mg PO DAILY RF: 0 insulin glargine [Lantus Solostar U-100 Insulin] 100 unit/mL (3 mL) insulin pen 10 unit SUBCUT QPM RF: 0 Discharge Orders: Discharge Order (Routine); Ordered 08/19/21 Ordered By: Xander Holley Admission Data Admit Date/Time: 08/16/21 18:10 Attending Provider: Xander Holley Admit Provider: Rodrigo Galdamez Primary Care Provider: Fiona Novoa Other Providers: Rodrigo Galdamez ; Jose Cruz Chaparro
--- NOTE | 2021-08-19 14:20 | Electrocardiogram Report ---
Test Reason : Blood Pressure : / mmHG Vent. Rate : 082 BPM Atrial Rate : 441 BPM P-R Int : 000 ms QRS Dur : 098 ms QT Int : 406 ms P-R-T Axes : 000 -52 026 degrees QTc Int : 474 ms Atrial fibrillation Incomplete right bundle branch block Left anterior fascicular block Septal infarct (cited on or before 17-AUG-2021) Abnormal ECG When compared with ECG of 16-AUG-2021 14:38, Questionable change in initial forces of Septal leads Confirmed by Jn Beckham ([id number]) on 08/19/2021 2:20:34 PM Referred By: REFERRED SELF Confirmed By:Jn Beckham
--- NOTE | 2021-08-19 14:42 | Electrocardiogram Report ---
Test Reason : Blood Pressure : / mmHG Vent. Rate : 079 BPM Atrial Rate : 078 BPM P-R Int : 000 ms QRS Dur : 098 ms QT Int : 404 ms P-R-T Axes : 000 -47 047 degrees QTc Int : 463 ms Atrial fibrillation Pulmonary disease pattern Left anterior fascicular block Abnormal ECG When compared with ECG of 17-AUG-2021 17:19, (unconfirmed) No significant change Confirmed by Jn Beckham ([id number]) on 08/19/2021 2:42:03 PM Referred By: REFERRED SELF Confirmed By:Jn Beckham
== END 2021-08-19 13:45 | disposition home or self-care (01) | DRG 871 ==
LOC: ED 14:30 → EDINP 18:10 → SUATTDRO 18:10 → 2N 20:00

== ENCOUNTER 2024-03-17 16:07 | Inpatient (IN) ==
[2024-03-17] MEDS: OPTIRAY 320 125ml IV ONE (16:15)
--- NOTE | 2024-03-17 16:25 | Emergency Department Note ---
Impression & Plan Facial droop, A-fib, ESRD (end stage renal disease) on dialysis ED Provider Note NAME: ALEJANDRA MZT AGE: 78 SEX: M : 1945 ARRIVES VIA: Ambulance INFORMANT: Patient, EMS report ED PROVIDER(S): Ervin Zapien MD CHIEF COMPLAINT: Strokelike symptoms MEDICAL DECISION MAKING: Patient presents due to concern for left-sided facial droop which is present for 5 minutes ambulance was called thereafter. IV was established and blood work was obtained after going to CAT scan. Initial CT head does not show obvious ICH. Patient is awake alert following commands. No obvious deficits on exam. A-fib may be new. Patient CT is unremarkable. Patient was noted to be hypertensive greater than 230 so IV labetalol 10 mg was ordered still trying to observe permissive hypertension in light of the patient's CT without obvious ICH. Blood work does show white count of 6 with a hemoglobin 11.9. Platelet count 113. Kidney function with creatinine 6.7. Patient does have known ESRD troponin 30. Heparin ordered in light of the patient strokelike symptoms even the patient is not currently anticoagulated as the patient does have a known history of A-fib. Additional treatment deferred to inpatient service. I did speak the on-call hospitalist and the patient was admitted to medicine service by Dr. Briggs. Critical Care: I have personally spent 35 minutes of critical care time in direct management of this patient. This includes bedside care, interpretation of diagnostic studies, and testing, discussion with consultants, patient, and family members, and other require inpatient management activities. This 35 minutes is in excess of all separately billable procedures. Discussion w/ other healthcare providers: Dr. Briggs inpatient medicine service Prior /Outside records reviewed: None Differential diagnosis: Infection, dehydration, metabolic abnormality, hypo/hyperglycemia, electrolyte imbalance, anemia, UTI, pneumonia, thyroid dysfunction among others were considered. Diagnostics, as interpreted by me: ECG:A-fib, rate of 79, normal QRS, left axis deviation no obvious ST elevations. Cardiac monitoring: An order was placed for continuous cardiac monitoring. The monitor shows a rate of 82 with irregular irregular rhythm. Patient was placed on pulse oximetry Medical decision rules: None Imaging studies: I informally interpreted the patient's CT head does not show obvious ICH with formal report to follow. HPI: Patient presents due to concern for TIA strokelike symptoms. The patient reportedly developed a facial droop at the time of waking up around 245. This lasted about 5 minutes in duration and EMS was called and presented noted the patient to be in A-fib. Patient without any acute complaints at this time. He has not had that his dialysis in about 4 days time does have a right chest permacath. Does have a "touch of dementia" per EMS. Patient denies any falls or trauma no headache. No cough or fever. Patient does not take any blood thinning medications. PAST MEDICAL HISTORY: See Below PAST SURGICAL HISTORY: See Below SOCIAL HISTORY: See Below HOME MEDICATIONS: See Below ALLERGIES: See Below VITALS: See Below PHYSICAL EXAMINATION: GENERAL: NAD, non-toxic. Hard of hearing. EYE EXAM: Normal conjunctiva. PERRL, no anisocoria and EOM's grossly intact w/o pain. OROPHARYNX: Moist mucus membranes, poor dentition of the mandible. Absent maxillary teeth. NECK: Trachea midline, no stridor. Supple, no nuchal rigidity, no adenopathy, non-tender. No signs of meningismus. FROM of the neck with good chin to chest and neck extension. LUNGS: Clear to auscultation. Normal chest wall mechanics. HEART: NSR, no MRG. ABDOMEN: Abdomen soft, non-tender, no masses, no rebound or guarding. BACK: No CVA TTP. SKIN: No rashes and no bruising. UPPER EXTREMITIES: Upper extremities are grossly normal. LOWER EXTREMITIES: Grossly normal, no edema. NEURO EXAM: A&O x3, cranial nerves II-XII grossly intact, normal speech, moves all 4 extremities. Good [id number], no drift and no sensory deficits. No obvious facial droop. Past Med/Surg History Problem List (Updated 03/18/24 @ 11:33 by Ervin Zapien MD) ESRD (end stage renal disease) on dialysis (Acute) A-fib (Acute) Facial droop (Acute) Atrial fibrillation Rate controlled, not anticoagulated d/t hx retroperitoneal bleed. Hypertensive urgency Stroke-like symptoms Ambulatory dysfunction (Acute) Chronic renal failure, stage 4 (severe) (Chronic) Weakness (Acute) Hyperglycemia (Acute) Contusion of rib on left side (Acute) Upper GI bleed (Acute) DVT prophylaxis Discharge planning issues Encounter for pre-operative examination Gastritis and duodenitis Hypokalemia Colonic polyp (Chronic) Encounter for pre-operative examination Gastritis and duodenitis Encounter for pre-operative examination History of colon polyps CKD (chronic kidney disease) stage 5, GFR less than 15 ml/min Hyponatremia (Acute) Elevated lipase (Acute) Acute kidney injury superimposed on CKD (Acute) Peritoneal dialysis catheter dysfunction Peritoneal dialysis catheter in place Anaplasmosis (Acute) Metabolic encephalopathy Elevated troponin Fall Hyponatremia Acute alteration in mental status (Acute) Acute UTI (Acute) ESRD (end stage renal disease) on dialysis Retroperitoneal bleeding Retroperitoneal bleed Hemodialysis catheter malfunction ESRD (end stage renal disease) on dialysis ESRD (end stage renal disease) on dialysis Fever (Acute) Pneumonia (Acute) Hypoxia (Acute) Acute respiratory failure with hypoxia Sepsis Hyperlipidemia HTN (hypertension) Diabetes mellitus, type II IDDM, last A1c per d/c summary 06/29/21: 8.6% Medical History History of blood transfusion 2020 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 Currently on transplant list- RENAL [facility] Gastric ulcer hx Depression Anxiety Anemia Chronic Surgical History S/P dialysis catheter insertion 04/2021 [place] Hx of abdominal surgery removal of Peritoneal Diaylsis cath (11/2020) History of tooth extraction History of peritoneal dialysis Insertion of CAPD catheter (09/23/20): Grade view 2, MAC #3, ETT 7.5 at [facility] Reposition of dialysis catheter, perm cath placement (10/28/20): Grade view 2, Tian #2, ETT 7.5 at [facility] Peritoneal dialysis catheter removal (11/22/20): MAC at [facility] History of esophagogastroduodenoscopy (EGD) EGD (01/11/21): MAC at [facility] History of cataract surgery R/L S/P colonoscopy with polypectomy Family History Mother Diabetes Breast cancer Family history of diabetes mellitus Father Family history of diabetes mellitus Other No family history of adverse response to anesthesia Social History Smoking Status: Former smoker Tobacco Type: Cigarettes Second Hand Exposure: No; Do You Dip or Chew Tobacco: No; Hx Alcohol Use: No Hx Substance Use: No Preferred Language: Ecuadorean Communication Ability: Effective Visual Impairment: No Limitations Inverted Block Operator Required: No Beliefs That Will Affect Care: None marital status: / Current Living Situation: Family Current Living Situation Comment: with daughter How many Children do You have: 2 Feels Safe at Home: Yes Safety Concerns: Feels Safe At This Time Assistive Devices: Cane, Hearing Aid - Right and Hospital Bed Allergies Allergies Allergy/AdvReac Type Severity Reaction Status Date / Time LUCHO Inhibitors Allergy Unknown Unknown Verified 10/25/22 11:42 reaction (Per [facility] records) sitagliptin AdvReac Unknown Lightheadedness, Verified 10/25/22 11:42 upper abdominal pain [id number]-[id number] Reductase AdvReac Unknown Myopathy Verified 10/25/22 11:42 Inhibitor [Qamferv-Jcr-Rjv Reductase Inhibitor] Home Meds Home Medications Medication Instructions Recorded Confirmed cholecalciferol (vitamin D3) 25 2,000 unit PO QAM 10/27/18 03/17/24 mcg (1,000 unit) capsule (Vitamin D3) cyanocobalamin (vitamin B-12) 1,000 mcg PO QAM 10/27/18 03/17/24 1,000 mcg tablet (Vitamin B-12) famotidine 20 mg tablet (Pepcid) 20 mg PO [id number] PRN Heartburn 06/01/20 03/17/24 ferrous sulfate 325 mg (65 mg 325 mg PO QAM 05/04/21 03/17/24 iron) tablet (iron) ezetimibe 10 mg tablet 10 mg PO DAILY 08/16/21 03/17/24 vitamin E 200 unit tablet 45 mg PO QPM 08/31/21 10/25/22 calcium acetate(phosphat bind) 667 667 mg 03/17/24 mg capsule losartan 50 mg tablet 25 mg PO QAM 03/17/24 03/17/24 metoprolol succinate 25 mg See Rx Instructions .Route .COMPLEX 03/17/24 03/17/24 tablet,extended release 24 hr Results & Data (ED) Vital Signs Vital Signs - 24 hr 03/17/24 16:20 03/17/24 16:41 03/17/24 16:45 Temperature 36.4 C L Temperature Source Oral Pulse Rate 93 H 75 74 Pulse Rate from SpO2 Sensor 74 Pulse Rhythm Regular Pulse Strength Normal Respiratory Rate 20 17 Respiratory Effort / Characteristics Non-Labored Respiratory Depth Normal Respiratory Pattern Regular Blood Pressure 231/110 H 222/97 H 188/93 H Blood Pressure Mean 150 124 Blood Pressure Position Lying Pulse Oximetry 100 100 Oxygen Delivery Method Room Air Sepsis Recent Fever Within 48 Hours No Sepsis New/Unexplained Change in Mental Status N/A Sepsis Action Taken by Nursing No Action Required 03/17/24 16:46 03/17/24 16:48 03/17/24 16:49 Temperature Temperature Source Pulse Rate 75 Pulse Rate from SpO2 Sensor Pulse Rhythm Pulse Strength Respiratory Rate Respiratory Effort / Characteristics Respiratory Depth Respiratory Pattern Blood Pressure 188/93 H Blood Pressure Mean 137 Blood Pressure Position Pulse Oximetry 98 Oxygen Delivery Method Room Air Sepsis Recent Fever Within 48 Hours Sepsis New/Unexplained Change in Mental Status Sepsis Action Taken by Nursing 03/17/24 17:01 03/17/24 17:03 03/17/24 17:27 Temperature Temperature Source Pulse Rate 69 77 Pulse Rate from SpO2 Sensor 72 74 Pulse Rhythm Pulse Strength Respiratory Rate 17 13 Respiratory Effort / Characteristics Respiratory Depth Respiratory Pattern Blood Pressure 218/93 H Blood Pressure Mean 152 Blood Pressure Position Pulse Oximetry 100 Oxygen Delivery Method Sepsis Recent Fever Within 48 Hours Sepsis New/Unexplained Change in Mental Status Sepsis Action Taken by Nursing 03/17/24 17:30 03/17/24 17:44 Temperature Temperature Source Pulse Rate 74 Pulse Rate from SpO2 Sensor Pulse Rhythm Pulse Strength Respiratory Rate Respiratory Effort / Characteristics Respiratory Depth Respiratory Pattern Blood Pressure 159/92 H 159/92 H Blood Pressure Mean 144 Blood Pressure Position Pulse Oximetry Oxygen Delivery Method Sepsis Recent Fever Within 48 Hours Sepsis New/Unexplained Change in Mental Status Sepsis Action Taken by Residential Medications Current Medication List: was personally reviewed by me Laboratory Data Attestation: I reviewed the patient's lab results. 03/18/24 05:39 03/18/24 05:39 Lab Results 03/17/24 Range/Units 16:25 WBC 6.84 (4.8-10.8) K/ul RBC 3.69 L (4.70-6.10) M/uL Hgb 11.9 L (14.0-18.0) g/dl Hct 34.9 L (42.0-52.0) % MCV 94.6 (80.0-100.0) fL MCH 32.2 (25.0-34.0) pg MCHC 34.1 (32.0-36.0) g/dL RDW Std Deviation 49.5 H (36.4-46.3) fL RDW Coeff of Juma 14.3 (11.5-14.5) % Plt Count 113 L (130-400) K/uL MPV 11.1 (9.4-12.4) fL Immature Gran % (Auto) 0.6 % Neut % (Auto) 61.3 % Lymph % (Auto) 20.6 % [place] % (Auto) 14.5 % Eos % (Auto) 2.3 % Baso % (Auto) 0.7 % Neut # (Auto) 4.19 (1.40-6.50) K/uL Lymph # (Auto) 1.41 (1.20-3.40) K/uL [place] # (Auto) 0.99 H (0.11-0.59) K/uL Eos # (Auto) 0.16 (0.00-0.50) K/uL Baso # (Auto) 0.05 (0.00-0.20) K/uL Immature Gran # (Auto) 0.04 (0.01-0.20) K/uL PT 11.0 (9.0-12.0) Seconds INR 1.0 (0.9-1.1) APTT 30 (21-31) Seconds PTT Ratio 1.1 Sodium 132 L (136-145) mmol/L Potassium 4.3 (3.5-5.1) mmol/L Chloride 92 L (98-107) mmol/L Carbon Dioxide 28 (21-32) mmol/L Anion Gap 12 H (3-11) BUN 54 H (6-23) mg/dl Creatinine 6.73 H* (0.6-1.4) mg/dl Est Cr Clr Drug Dosing 9.3 ml/min eGFR 7.77 BUN/Creatinine Ratio 8.0 L (10-20) Glucose 144 H (70-99(Fasting)) mg/dl Calcium 9.2 (8.6-10.3) mg/dl Magnesium 2.0 (1.7-2.4) mg/dl Total Bilirubin 0.6 (0.2-1.0) mg/dl AST 17 (13-39) U/L ALT 9 (7-52) U/L Alkaline Phosphatase 93 (34-104) U/L Troponin I High Sens 30.2 H (0-20) pg/ml Total Protein 7.4 (6.0-8.3) gm/dl Albumin 3.7 (3.4-5.0) gm/dl Globulin 3.7 (2.5-4.0) gm/dl Albumin/Globulin Ratio 1.0 (0.9-2) Administered Medications Amlodipine Besylate (Amlodipine Besylate 5 Mg Tab) 2.5 mg PO HS [facility] Stop: 04/16/24 23:29 Last Admin: 03/18/24 00:35 Dose: 2.5 mg Documented By: KRISTI Cyanocobalamin (Cyanocobalamin (B-12) 500 Mcg Tablet) [facility] Stop: 04/17/24 08:59 Last Admin: 03/18/24 08:13 Dose: 1,000 mcg Documented By: OSEAS Ezetimibe (Ezetimibe 10 Mg Tab) 10 mg PO DAILY [facility] Stop: 04/17/24 08:59 Last Admin: 03/18/24 08:13 Dose: 10 mg Documented By: OSEAS Ferrous Sulfate (Ferrous Sulfate 325 Mg Tab) 325 mg PO QAM [facility] Stop: 04/17/24 08:59 Last Admin: 03/18/24 08:13 Dose: 325 mg Documented By: OSEAS Heparin Sodium (Porcine) (Heparin Sod 5,000 Unit/0.5 Ml Vial) 5,000 units SQ Q12 [facility] Stop: 04/16/24 20:59 Last Admin: 03/18/24 08:16 Dose: 5,000 units Documented By: Admin: 03/17/24 21:56 Dose: 5,000 units Documented By: URSULA Insulin Aspart (Insulin Aspart Per Unit Charge) 0 units SC ACHS [facility] Stop: 04/16/24 20:59 Last Admin: 03/18/24 08:57 Dose: 2 units Documented By: OSEAS Co-signed By: NICK Admin: 03/17/24 20:42 Dose: Not Given Documented By: URSULA Losartan Potassium (Losartan Potassium 25 Mg Tab) [facility] Stop: 04/17/24 08:59 Last Admin: 03/18/24 08:13 Dose: 25 mg Documented By: OSEAS Metoprolol Succinate (Metoprolol Succ 25mg Ext Rel Tab) 25 mg PO BID [facility] Stop: 04/16/24 20:59 Last Admin: 03/18/24 08:35 Dose: 25 mg Documented By: Admin: 03/17/24 22:13 Dose: 25 mg Documented By: URSULA Vitamin D (Cholecalciferol 25 Mcg (1000 Units) Tab) 50 mcg PO QAM [facility] Stop: 04/17/24 08:59 Last Admin: 03/18/24 08:12 Dose: 50 mcg Documented By: OSEAS Discontinued Medications Heparin Sodium/Dextrose (Heparin Iv Adult Wt-Based Standard *No* Initial Bolus Protocol) 1 each IV ONE STA; Protocol Stop: 03/17/24 17:25 Last Admin: 03/17/24 19:13 Dose: Not Given Documented By: URSULA Hydralazine HCl (Hydralazine Hcl 20 Mg/Ml Vial) 10 mg IV NOW STA Stop: 03/17/24 23:28 Last Admin: 03/17/24 23:40 Dose: 10 mg Documented By: KRISTI Heparin Sodium/Dextrose (Heparin Sodium/Dextrose) 25,000 units in 500 mls @ 27 mls/hr IV .[id number] [facility]; Protocol Stop: 04/16/24 17:44 Last Titration: 03/17/24 19:07 Dose: Infused Documented By: URSULA Co-signed By: MAGUE Admin: 03/17/24 18:34 Dose: 1,350 units/hr, 27 mls/hr Documented By: URSULA Co-signed By: HAL Ioversol (Optiray 320 125ml) 119 ml IV ONCE ONE Stop: 03/17/24 16:16 Last Admin: 03/17/24 16:15 Dose: 119 ml Documented By: CHACE Labetalol HCl (Labetalol Hcl Iv 5 Mg/Ml 20ml) 10 mg IV NOW STA Stop: 03/17/24 16:30 Last Admin: 03/17/24 16:41 Dose: 10 mg Documented By: HAL Lorazepam (Lorazepam 0.5 Mg Tab) 0.5 mg PO NOW STA Stop: 03/17/24 18:33 Last Admin: 03/17/24 18:59 Dose: 0.5 mg Documented By: URSULA Metoprolol Succinate (Metoprolol Succ 25mg Ext Rel Tab) 25 mg PO TODAY@2100 [place] Stop: 04/16/24 20:59 Last Admin: 03/17/24 21:08 Dose: Not Given Documented By: URSULA Imaging Data Radiologist's Impression: Head CT 03/17/24 15:59 EXAM: CT Head Without Intravenous Contrast INDICATION: Unspecified neurologic deficit. TECHNIQUE: Axial computed tomography images of the head/brain without intravenous contrast. Sagittal and/or coronal reformats are provided. Sagittal and coronal reformatted images were created and reviewed. This CT exam was performed using one or more of the following dose reduction techniques: automated exposure control, adjustment of the mA and/or kV according to patient size, and/or use of iterative reconstruction technique. COMPARISON: 01/11/2021 FINDINGS: Limitations: None. Brain and extra-axial spaces: There is age appropriate cortical atrophy and chronic ischemic periventricular white matter hypodensity. No acute infarct, hemorrhage or mass noted. Bones/joints: No acute changes. Soft tissues: No significant abnormality noted. Vasculature: No acute abnormality noted. Sinuses: No layering fluid in the visualized portions of the paranasal sinuses. Mastoid air cells: No mastoid effusion. Orbits: No significant abnormality noted. IMPRESSION: Cerebral atrophy. No acute changes. Findings discussed by phone with Dr. Zapien at 4:25 PM 03/17/2024. ACT 112: N/A Electronically signed by Kimberly Boyce 03-17-2024 4:28 PM Head CTA 03/17/24 15:59 EXAM: CT Angiography Head With Intravenous Contrast INDICATION: Unspecified neurologic deficit. TECHNIQUE: Axial computed tomographic angiography images of the head with intravenous contrast. Sagittal and coronal reformatted images were created and reviewed. This CT exam was performed using one or more of the following dose reduction techniques: automated exposure control, adjustment of the mA and/or kV according to patient size, and/or use of iterative reconstruction technique. MIP reconstructed images were created and reviewed. CONTRAST: 119ml of Optiray 320 was administered intravenously. COMPARISON: No relevant prior studies available. FINDINGS: Right internal carotid artery: Diffuse calcific plaque. Intracranial segment is patent with no significant stenosis. No aneurysm. Right anterior cerebral artery: No abnormality noted. No occlusion or significant stenosis. No aneurysm. Right middle cerebral artery: No abnormality noted. No occlusion or significant stenosis. No aneurysm. Right posterior cerebral artery: No abnormality noted. No occlusion or significant stenosis. No aneurysm. Right vertebral artery: No significant abnormality noted. Left internal carotid artery: Diffuse calcific plaque. Intracranial segment is patent with no significant stenosis. No aneurysm. Left anterior cerebral artery: No abnormality noted. No occlusion or significant stenosis. No aneurysm. Left middle cerebral artery: No abnormality noted. No occlusion or significant stenosis. No aneurysm. Left posterior cerebral artery: No abnormality noted. No occlusion or significant stenosis. No aneurysm. Left vertebral artery: No significant abnormality noted. Basilar artery: No abnormality noted. No occlusion or significant stenosis. No aneurysm. Other vasculature: Patent dural venous sinuses. IMPRESSION: No acute angiographic abnormality in the brain. ACT 112: Negative or not required by law. Electronically signed by Kimberly Boyce 03-17-2024 4:34 PM Neck CTA 03/17/24 15:59 EXAM: CT Angiography Neck With Intravenous Contrast INDICATION: Unspecified neurologic deficit TECHNIQUE: Routine carotid CT angiography protocol was performed with intravenous contrast. NASCET criteria using the distal ICAs for comparison were used for evaluation of stenoses. Sagittal and coronal reformatted images were created and reviewed. This CT exam was performed using one or more of the following dose reduction techniques: automated exposure control, adjustment of the mA and/or kV according to patient size, and/or use of iterative reconstruction technique. MIP reconstructed images were created and reviewed. CONTRAST: 119ml of Optiray 320 was administered intravenously. COMPARISON: None. FINDINGS: VASCULATURE: Right common carotid artery: No abnormality noted. No occlusion or significant stenosis. No dissection. Right internal carotid artery: Moderate mixed plaque right internal carotid bulb with less than 30% proximal stenosis. No aneurysm or dissection. Right external carotid artery: No abnormality noted. No occlusion. Right vertebral artery: The right vertebral artery is patent. It is compressed in the right approximate C4 transverse foramen. No occlusion or significant stenosis. No dissection. Left common carotid artery: There is mild soft plaque in the distal left common carotid artery. No aneurysm, dissection or occlusion. Left internal carotid artery: Moderate mixed plaque left internal carotid bulb with less than 20% stenosis. No dissection or aneurysm. Left external carotid artery: No abnormality noted. No occlusion. Left vertebral artery: No abnormality noted. No occlusion or significant stenosis. No dissection. Brachiocephalic and subclavian arteries: Moderate mixed plaque in the proximal left subclavian artery with up to 30% stenosis. No occlusion or dissection. Aorta: There is moderate atherosclerosis of the aortic arch. NECK: Bones/joints: No acute or atypical chronic changes. Soft tissues: No abnormality noted. Lung apices: Clear. Tubes, lines and devices: Right internal jugular central venous catheter tip in the distal superior vena cava. CAROTID STENOSIS REFERENCE USING NASCET CRITERIA: % ICA stenosis = (1 - narrowest ICA diameter/diameter of distal cervical ICA) x 100. Mild - <50% stenosis. Moderate - 50-69% stenosis. Severe - 70-94% stenosis. Near occlusion - 95-99% stenosis. Occluded - 100% stenosis. IMPRESSION: 1. Atherosclerosis less than 30% cervical internal carotid stenosis. 2. The right vertebral artery is patent but is compressed by arthritic changes in the right approximate C4 transverse foramen. 3. Moderate mixed plaque in the proximal left subclavian artery with less than 50% stenosis. No dissection or aneurysm. ACT 112: Negative or not required by law. Electronically signed by Kimberly Boyce 03-17-2024 4:32 PM Brain MRI 03/17/24 17:44 Exam(s): MRI HEAD Without Contrast EXAM: MR Head Without Intravenous Contrast CLINICAL HISTORY: L sided facial droop. TECHNIQUE: Magnetic resonance images of the head/brain without intravenous contrast in multiple planes. COMPARISON: CT Brain 03-17-2024. MRI Brain 11-10-2020. FINDINGS: Brain: Age-appropriate central and peripheral atrophy. No acute stroke. Mild degree of supratentorial periventricular and subcortical white matter hyperintensities on FLAIR and T2-weighted images. No acute hemorrhage or abnormal extra-axial fluid collection. Ventricles: No midline shift. No ventriculomegaly. Bones/joints: Unremarkable. No acute fracture. Sinuses: Unremarkable as visualized. No acute sinusitis. Mastoid air cells: Unremarkable as visualized. No mastoid effusion. Orbits: Unremarkable as visualized. IMPRESSION: 1. No acute stroke or hemorrhage. 2. Nonspecific white matter changes most commonly seen with small vessel disease. Electronically signed by: Mike Joseph M.D. 03/17/24 22:34 PM Discharge Plan Visit Data Chief Complaint: Stroke/CVA Symptoms Stated Complaint: TIA SYMTOMS ED Provider: Ervin Zapien Discharge Problem: Facial droop, A-fib, ESRD (end stage renal disease) on dialysis Patient Disposition: Admitted As Inpatient Discharge Instructions Interventions: ED Discharge Assessment Last Done: 03/17/24 20:32 Discharge Problem: A-fib Qualifiers: Atrial fibrillation type: unspecified chronic Qualified Code(s): I48.20 - Chronic atrial fibrillation, unspecified
--- NOTE | 2024-03-17 16:28 | CT Scan Report ---
EXAM: CT Head Without Intravenous Contrast INDICATION: Unspecified neurologic deficit. TECHNIQUE: Axial computed tomography images of the head/brain without intravenous contrast. Sagittal and/or coronal reformats are provided. Sagittal and coronal reformatted images were created and reviewed. This CT exam was performed using one or more of the following dose reduction techniques: automated exposure control, adjustment of the mA and/or kV according to patient size, and/or use of iterative reconstruction technique. COMPARISON: 01/11/2021 FINDINGS: Limitations: None. Brain and extra-axial spaces: There is age appropriate cortical atrophy and chronic ischemic periventricular white matter hypodensity. No acute infarct, hemorrhage or mass noted. Bones/joints: No acute changes. Soft tissues: No significant abnormality noted. Vasculature: No acute abnormality noted. Sinuses: No layering fluid in the visualized portions of the paranasal sinuses. Mastoid air cells: No mastoid effusion. Orbits: No significant abnormality noted. IMPRESSION: Cerebral atrophy. No acute changes. Findings discussed by phone with Dr. Zapien at 4:25 PM 03/17/2024. ACT 112: N/A Electronically signed by Kimberly Boyce 03-17-2024 4:28 PM
--- NOTE | 2024-03-17 16:33 | CT Scan Report ---
EXAM: CT Angiography Neck With Intravenous Contrast INDICATION: Unspecified neurologic deficit TECHNIQUE: Routine carotid CT angiography protocol was performed with intravenous contrast. NASCET criteria using the distal ICAs for comparison were used for evaluation of stenoses. Sagittal and coronal reformatted images were created and reviewed. This CT exam was performed using one or more of the following dose reduction techniques: automated exposure control, adjustment of the mA and/or kV according to patient size, and/or use of iterative reconstruction technique. MIP reconstructed images were created and reviewed. CONTRAST: 119ml of Optiray 320 was administered intravenously. COMPARISON: None. FINDINGS: VASCULATURE: Right common carotid artery: No abnormality noted. No occlusion or significant stenosis. No dissection. Right internal carotid artery: Moderate mixed plaque right internal carotid bulb with less than 30% proximal stenosis. No aneurysm or dissection. Right external carotid artery: No abnormality noted. No occlusion. Right vertebral artery: The right vertebral artery is patent. It is compressed in the right approximate C4 transverse foramen. No occlusion or significant stenosis. No dissection. Left common carotid artery: There is mild soft plaque in the distal left common carotid artery. No aneurysm, dissection or occlusion. Left internal carotid artery: Moderate mixed plaque left internal carotid bulb with less than 20% stenosis. No dissection or aneurysm. Left external carotid artery: No abnormality noted. No occlusion. Left vertebral artery: No abnormality noted. No occlusion or significant stenosis. No dissection. Brachiocephalic and subclavian arteries: Moderate mixed plaque in the proximal left subclavian artery with up to 30% stenosis. No occlusion or dissection. Aorta: There is moderate atherosclerosis of the aortic arch. NECK: Bones/joints: No acute or atypical chronic changes. Soft tissues: No abnormality noted. Lung apices: Clear. Tubes, lines and devices: Right internal jugular central venous catheter tip in the distal superior vena cava. CAROTID STENOSIS REFERENCE USING NASCET CRITERIA: % ICA stenosis = (1 - narrowest ICA diameter/diameter of distal cervical ICA) x 100. Mild - <50% stenosis. Moderate - 50-69% stenosis. Severe - 70-94% stenosis. Near occlusion - 95-99% stenosis. Occluded - 100% stenosis. IMPRESSION: 1. Atherosclerosis less than 30% cervical internal carotid stenosis. 2. The right vertebral artery is patent but is compressed by arthritic changes in the right approximate C4 transverse foramen. 3. Moderate mixed plaque in the proximal left subclavian artery with less than 50% stenosis. No dissection or aneurysm. ACT 112: Negative or not required by law. Electronically signed by Kimberly Boyce 03-17-2024 4:32 PM
--- NOTE | 2024-03-17 16:37 | CT Scan Report ---
EXAM: CT Angiography Head With Intravenous Contrast INDICATION: Unspecified neurologic deficit. TECHNIQUE: Axial computed tomographic angiography images of the head with intravenous contrast. Sagittal and coronal reformatted images were created and reviewed. This CT exam was performed using one or more of the following dose reduction techniques: automated exposure control, adjustment of the mA and/or kV according to patient size, and/or use of iterative reconstruction technique. MIP reconstructed images were created and reviewed. CONTRAST: 119ml of Optiray 320 was administered intravenously. COMPARISON: No relevant prior studies available. FINDINGS: Right internal carotid artery: Diffuse calcific plaque. Intracranial segment is patent with no significant stenosis. No aneurysm. Right anterior cerebral artery: No abnormality noted. No occlusion or significant stenosis. No aneurysm. Right middle cerebral artery: No abnormality noted. No occlusion or significant stenosis. No aneurysm. Right posterior cerebral artery: No abnormality noted. No occlusion or significant stenosis. No aneurysm. Right vertebral artery: No significant abnormality noted. Left internal carotid artery: Diffuse calcific plaque. Intracranial segment is patent with no significant stenosis. No aneurysm. Left anterior cerebral artery: No abnormality noted. No occlusion or significant stenosis. No aneurysm. Left middle cerebral artery: No abnormality noted. No occlusion or significant stenosis. No aneurysm. Left posterior cerebral artery: No abnormality noted. No occlusion or significant stenosis. No aneurysm. Left vertebral artery: No significant abnormality noted. Basilar artery: No abnormality noted. No occlusion or significant stenosis. No aneurysm. Other vasculature: Patent dural venous sinuses. IMPRESSION: No acute angiographic abnormality in the brain. ACT 112: Negative or not required by law. Electronically signed by Kimberly Boyce 03-17-2024 4:34 PM
[2024-03-17] MEDS: LABETALOL HCL IV 5 MG/ML 20ML IV STA (16:41)
[2024-03-17 16:43] LABS: Basophils # (auto) 0.05 K/uL (0.00-0.20); Basophils % (auto) 0.7 %; Eosinophils # (auto) 0.16 K/uL (0.00-0.50); Eosinophils % (auto) 2.3 %; Hematocrit (blood only) 34.9 % (42.0-52.0); Hemoglobin 11.9 g/dl (14.0-18.0); Immature Granulocytes # (auto) 0.04 K/uL (0.01-0.20); Immature Granulocytes % (auto) 0.6 %; Lymphocytes # (auto) 1.41 K/uL (1.20-3.40); Lymphocytes % (auto) 20.6 %; Mean Corpuscular Hemoglobin 32.2 pg (25.0-34.0); Mean Corpuscular Hgb Conc 34.1 g/dL (32.0-36.0); Mean Corpuscular Volume 94.6 fL (80.0-100.0); Mean Platelet Volume 11.1 fL (9.4-12.4); Monocytes # (auto) 0.99 K/uL (0.11-0.59); Monocytes % (auto) 14.5 %; Neutrophils # (auto) 4.19 K/uL (1.40-6.50); Neutrophils % (auto) 61.3 %; Platelet Count 113 K/uL (130-400); RDW Coefficient of Variation 14.3 % (11.5-14.5); RDW Standard Deviation 49.5 fL (36.4-46.3); Red Blood Count 3.69 M/uL (4.70-6.10); White Blood Count 6.84 K/ul (4.8-10.8)
[2024-03-17 17:05] LABS: Partial Thromboplastin Ratio 1.1; Partial Thromboplastin Time 30 Seconds (21-31)
[2024-03-17 17:07] LABS: Albumin Level 3.7 gm/dl (3.4-5.0); Bilirubin,Total 0.6 mg/dl (0.2-1.0); Calcium 9.2 mg/dl (8.6-10.3); Creatinine Clr Calc Pharmacy 9.3 ml/min; Globulin 3.7 gm/dl (2.5-4.0); Potassium 4.3 mmol/L (3.5-5.1); Total Protein 7.4 gm/dl (6.0-8.3); Troponin I High Sensitivity 30.2 pg/ml (0-20)
[2024-03-17] MEDS: HEPARIN SODIUM/DEXTROSE 25,000 UNITS/500 ML BAG IV SCH (18:34)
[2024-03-17] MEDS ORDERED: FAMOTIDINE 20 MG TAB PO PRN (18:56)
--- NOTE | 2024-03-17 18:56 | History & Physical Report ---
Date of Service March 17, 2024 Assessment & Plan (1) Stroke-like symptoms: Plan: Presented with right facial droop and garbled speech resolved within 5 minutes Initial CTA and CT scan of the head unremarkable Will get MRI to rule out any stroke Will observe in telemetry unit and get an echocardiogram (2) Hypertensive urgency: Plan: Initial blood pressure noted to be very high at systolic more than 200 Received intravenous labetalol and the blood pressure is coming down Denies any chest pain, shortness of breath or palpitation (3) Atrial fibrillation: Plan: History of atrial fibrillation was on Coumadin before Coumadin has been discontinued secondary to retroperitoneal bleed in 2020 Patient has been started with intravenous heparin and that will be discontinued. Currently the rate is controlled (4) Diabetes mellitus, type II: Plan: Has type 2 diabetes on insulin We will continue with current insulin regimen (5) Hyperlipidemia: Plan: Continue statin (6) ESRD (end stage renal disease) on dialysis: Plan: Missed his last hemodialysis Next dialysis tomorrow Nephrology consult Other chronic medical conditions remained stable DVT prophylaxis Subcu heparin CODE STATUS Full Discussed with the daughter in detail for his atrial fibrillation and History of Present Illness Chief Complaint: Strokelike symptoms Primary Care Provider: Fiona Novoa DO Is a 78-year-old male with significant past medical history of end-stage renal disease on hemodialysis, atrial fibrillation not on any anticoagulation due to retroperitoneal bleed while on Coumadin on 01/2021, diabetes type 2 hypertension hyperlipidemia was brought in to emergency room with strokelike symptoms as observed by the daughter. He was in the table eating and following that his daughter noticed that his right side of the face was drooping and at the time he has had garbled speech and not sure what he was doing. This lasted for about 5 minutes without any other symptoms and symptoms completely resolved after 5 minutes. In the emergency room he did not have any neurological deficit or symptoms but noted to have a very high blood pressure of systolic more than 200 and received intravenous labetalol and the blood pressure was improving. He is apparently investigations including CT scan of the head and CTAs were unremarkable but he will have an MRI to make sure there is no stroke. He was started with intravenous heparin which will be discontinued given the history of intracranial bleed. He was admitted to telemetry unit for continuation of care. Allergies Allergy/AdvReac Type Severity Reaction Status Date / Time LUCHO Inhibitors Allergy Unknown Unknown Verified 10/25/22 11:42 reaction (Per [facility] records) sitagliptin AdvReac Unknown Lightheadedness, Verified 10/25/22 11:42 upper abdominal pain [id number] Reductase AdvReac Unknown Myopathy Verified 10/25/22 11:42 Inhibitor [Phznnqj-Mgw-Mfe Reductase Inhibitor] Home Medications Medication Instructions Recorded Confirmed Type cholecalciferol (vitamin D3) 25 2,000 unit PO QAM 10/27/18 03/17/24 History mcg (1,000 unit) capsule (Vitamin D3) cyanocobalamin (vitamin B-12) 1,000 mcg PO QAM 10/27/18 03/17/24 History 1,000 mcg tablet (Vitamin B-12) famotidine 20 mg tablet (Pepcid) 20 mg PO [id number] PRN Heartburn 06/01/20 03/17/24 History ferrous sulfate 325 mg (65 mg 325 mg PO QAM 05/04/21 03/17/24 History iron) tablet (iron) ezetimibe 10 mg tablet 10 mg PO DAILY 08/16/21 03/17/24 History vitamin E 200 unit tablet 45 mg PO QPM 08/31/21 10/25/22 History calcium acetate(phosphat bind) 667 667 mg 03/17/24 History mg capsule losartan 50 mg tablet 25 mg PO QAM 03/17/24 03/17/24 History metoprolol succinate 25 mg See Rx Instructions .Route .COMPLEX 03/17/24 03/17/24 History tablet,extended release 24 hr Past Med/Surg History Problem List (Updated 03/18/24 @ 11:33 by Ervin Zapien MD) ESRD (end stage renal disease) on dialysis (Acute) A-fib (Acute) Facial droop (Acute) Atrial fibrillation Rate controlled, not anticoagulated d/t hx retroperitoneal bleed. Hypertensive urgency Stroke-like symptoms Ambulatory dysfunction (Acute) Chronic renal failure, stage 4 (severe) (Chronic) Weakness (Acute) Hyperglycemia (Acute) Contusion of rib on left side (Acute) Upper GI bleed (Acute) DVT prophylaxis Discharge planning issues Encounter for pre-operative examination Gastritis and duodenitis Hypokalemia Colonic polyp (Chronic) Encounter for pre-operative examination Gastritis and duodenitis Encounter for pre-operative examination History of colon polyps CKD (chronic kidney disease) stage 5, GFR less than 15 ml/min Hyponatremia (Acute) Elevated lipase (Acute) Acute kidney injury superimposed on CKD (Acute) Peritoneal dialysis catheter dysfunction Peritoneal dialysis catheter in place Anaplasmosis (Acute) Metabolic encephalopathy Elevated troponin Fall Hyponatremia Acute alteration in mental status (Acute) Acute UTI (Acute) ESRD (end stage renal disease) on dialysis Retroperitoneal bleeding Retroperitoneal bleed Hemodialysis catheter malfunction ESRD (end stage renal disease) on dialysis ESRD (end stage renal disease) on dialysis Fever (Acute) Pneumonia (Acute) Hypoxia (Acute) Acute respiratory failure with hypoxia Sepsis Hyperlipidemia HTN (hypertension) Diabetes mellitus, type II IDDM, last A1c per d/c summary 06/29/21: 8.6% Medical History History of blood transfusion 2020 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 Currently on transplant list- [facility] Gastric ulcer hx Depression Anxiety Anemia Chronic Surgical History S/P dialysis catheter insertion 04/2021 [place] Hx of abdominal surgery removal of Peritoneal Diaylsis cath (11/2020) History of tooth extraction History of peritoneal dialysis Insertion of CAPD catheter (09/23/20): Grade view 2, MAC #3, ETT 7.5 at [facility] Reposition of dialysis catheter, perm cath placement (10/28/20): Grade view 2, Tian #2, ETT 7.5 at [facility] Peritoneal dialysis catheter removal (11/22/20): MAC at [facility] History of esophagogastroduodenoscopy (EGD) EGD (01/11/21): MAC at [facility] History of cataract surgery R/L S/P colonoscopy with polypectomy Family History Mother Diabetes Breast cancer Family history of diabetes mellitus Father Family history of diabetes mellitus Other No family history of adverse response to anesthesia Social History Smoking Status: Former smoker Tobacco Type: Cigarettes Second Hand Exposure: No; Do You Dip or Chew Tobacco: No; Hx Alcohol Use: No Hx Substance Use: No Preferred Language: Yakut Communication Ability: Effective Visual Impairment: No Limitations Rim Turning Finisher Required: No Beliefs That Will Affect Care: None marital status: / Current Living Situation: Family Current Living Situation Comment: with daughter How many Children do You have: 2 Feels Safe at Home: Yes Safety Concerns: Feels Safe At This Time Assistive Devices: Cane, Hearing Aid - Right and Hospital Bed Review of Systems Review of Systems: All systems reviewed and are unremarkable except as noted below Physical Exam Physical Exam: Lying in bed without any acute distress Constitutional: well developed, well nourished and + ill appearing Eyes: PERRL, conjunctivae normal, anicteric sclerae ENMT: external ear and nose normal, oropharynx normal Neck: trachea midline, no thyromegaly Respiratory: normal respiratory effort, lungs clear to auscultation Cardiovascular: Rate/Rhythm: regular rate and regular rhythm; not tachycardic Heart Sounds: normal S1 and normal S2; no murmur Extremities: no edema Gastrointestinal (Abdomen): Inspection/Auscultation: normal bowel sounds; abdomen not distended Percussion/Palpation: abdomen soft; abdomen nontender Musculoskeletal: No acute arthritis involving any of the joint Neurologic: normal touch/pain/proprioception and moves all extremities; no focal motor deficits Lymphatic: no cervical or axillary lymphadenopathy Results & Data Results & Data Vital Signs (Past 12 Hours) Vital Signs Temp Pulse Resp BP Pulse Ox O2 Del Method 03/17/24 17:44 74 159/92 H 03/17/24 17:30 159/92 H 03/17/24 17:27 77 13 100 03/17/24 17:03 69 17 03/17/24 17:01 218/93 H 03/17/24 16:49 98 Room Air 03/17/24 16:48 188/93 H 03/17/24 16:46 75 03/17/24 16:45 74 17 188/93 H 100 03/17/24 16:41 75 222/97 H 03/17/24 16:20 36.4 C L 93 H 20 231/110 H 100 Room Air Laboratory Results Short CBC 12/31/24 Range/Units 16:25 WBC 6.84 (4.8-10.8) K/ul Hgb 11.9 L (14.0-18.0) g/dl Hct 34.9 L (42.0-52.0) % Plt Count 113 L (130-400) K/uL BMP 03/17/24 16:25 Sodium 132 L Potassium 4.3 Chloride 92 L Carbon Dioxide 28 BUN 54 H Creatinine 6.73 H* Glucose 144 H Calcium 9.2 Liver Function 03/17/24 Range/Units 16:25 Total Bilirubin 0.6 (0.2-1.0) mg/dl AST 17 (13-39) U/L ALT 9 (7-52) U/L Alkaline Phosphatase 93 (34-104) U/L Albumin 3.7 (3.4-5.0) gm/dl Medications Administered Current Inpatient Medications Heparin Sodium/Dextrose (Heparin Sodium/Dextrose) 25,000 units in 500 mls @ 27 mls/hr IV .[id number] [facility]; Protocol Stop: 04/16/24 17:44 Last Admin: 03/17/24 18:34 Dose: 1,350 units/hr, 27 mls/hr Code Status & VTE Plan VTE Prophylaxis Plan VTE Prophylaxis will be ordered: Yes (4) Diabetes mellitus, type II Diabetes mellitus complication status: without complication Diabetes mellitus skilled nursing insulin use: unspecified 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
[2024-03-17] MEDS: LORazepam 0.5 MG TAB PO STA (18:59)
[2024-03-17] MEDS: Heparin IV Adult Wt-Based Standard *NO* INITIAL Bolus Protocol IV STA (19:13)
[2024-03-17] MEDS: INSULIN ASPART PER UNIT CHARGE SC SCH (20:42)
[2024-03-17] MEDS: METOPROLOL SUCC 25MG EXT REL TAB PO SCH ×2 (21:08→22:13)
[2024-03-17] MEDS: HEPARIN SOD 5,000 UNIT/0.5 ML VIAL SQ SCH (21:56)
--- OUTSIDE RECORDS SUMMARY | 2024-03-17 22:09 | External Medical Summary | Summary of Care ---
Author Name Unknown Organization [facility] Address [address] [facility] [place] [address] Phone [phone] Care Team Providers Care Alterations Workroom Clerk Name Role Phone Remy Novoaa Lottie CARTER Primary Care Provider [phone] Reason for Visit * Reason Comments Medication Refill Encounter Details Date Type Department Care Team (Late st Contact Info) Description 03/02/[address] [facility] [address] [place] [address] Jaime Grande MD [address] [place] [id number] Allergies Active Allergy Reactions Criticality Noted Date Comments Charlie Inhibitors 11/06/2018 Sitagliptin Other (Please comment) 02/22/2015 lightheadedness Statins High 11/06/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 Wound Dressing Adhesive 11/12/2023 TAPE-- SKIN TEARS documented as of this encounter (statuses as of 03/03/2024) Medications Cholecalciferol (VITAMIN D) 1000 UNIT Capsule Take 2 Capsules by mouth in the morning. 09/10/19 15 Active CYANOCOBALAMIN (VITAMIN B-12) 100 MCG Tablet DAILY 10/28/19 19 Active Vitamin C 100 MG Oral Tablet Take 1 Tablet by mouth in the morning. 06/30/19 22 Active FreeStyle Lizbeth 2 Fisher DeviceIndications: Type 2 diabetes mellitus with hemoglobin A1c goal of less than 8.0% ([facility]) Use as directed. Dx E11.9 1 Each 1 01/15/20 23 Active FreeStyle Lizbeth 2 SensorIndications: Type 2 diabetes mellitus with hemoglobin A1c goal of less than 8.0% ([facility]) Use as directed. Dx E11.9 1 Each 5 01/15/20 23 Active Ezetimibe 10 MG Oral Tablet (Zetia)Indications :Mixed hyperlipidemia Take 1 Tablet by mouth in the morning. 90 Tablet 3 01/16/2024 10:40 AM EDT 07/01/19 24 Active Calcium Acetate (Phos Binder) 667 MG Oral Capsule (Phoslo) take 1 capsule by mouth with meals and 1 capsule with snacks 450 Capsule 6 11/19/2023 10:41 AM EDT 08/30/19 24 Active Metoprolol Succinate ER 25 MG Oral Tablet Extended Release 24 Hour (toPROL XL) Take 1/2 tablet by mouth after dialysis on Saturday, Saturday and Saturday01/14/20 24 Active Metoprolol Succinate ER 25 MG Oral Tablet Extended Release 24 Hour (toPROL XL) take 1/2 tablet by mouth on saturday, saturday and saturday after dialysis 15 Tablet 6 01/24/2024 2:10 PM EST 01/20/20 24 Active Losartan Potassium 25 MG Oral Tablet (Cozaar) take 2 tablets by mouth every morning 60 Tablet 5 02/17/2024 2:58 PM EST 02/14/20 24 Active Famotidine 20 MG Oral Tablet (Pepcid) take one tablet by mouth every other day 45 Tablet 1 03/03/20 24 Active Cephalexin 500 MG Oral CapsuleIndications :Cellulitis of fifth toe of right foot,Avulsion of toenail, initial encounter Take 1 Capsule by mouth in the morning and 1 Capsule before bedtime. Do all this for 10 days. 20 Capsule 03/02/2024 12:16 PM EST 03/02/20 24 024 Active Mupirocin 2 % External Ointment (Bactroban)Indicat ions:Cellulitis of fifth toe of right foot Apply topically to affected area 2 times a day for 10 days. To affected area for up to 14 days. 22 g 1 03/02/2024 12:16 PM EST 03/02/20 24 024 Active Famotidine 20 MG Oral Tablet (Pepcid) take one tablet by mouth every other day 45 Tablet 1 12/06/2023 3:44 PM EDT 08/30/19 024 Discontin ued(Refil l) documented as of this encounter (statuses as of 03/03/2024) Active Problems Problem Noted Date Diagnosed Date Dialysis AV fistula malfunction 12/31/2023 Persistent atrial fibrillation 04/03/2023 Gastroesophageal reflux disease without esophagi tis 04/03/2023 Hypertensive kidney disease with end-stage renal disease on dialysis 09/08/2021 Hyperparathyroidism, secondary renal 05/23/2021 ESRD on dialysis 11/07/2020 CKD, patient preferred treat ment modality peritoneal dialysis 07/15/2020 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 Dyslipidemia 02/22/2009 Overview (02/22/2009): Per Lipid Taxonomy. Type 2 diabetes mellitus wit h hemoglobin A1c goal of less than 8.0% 01/13/2009 Overview (07/12/2015): Per Diabetes Taxonomy. ICD-10 update of inactive term Diverticulosis of colon 05/12/2008 documented as of this encounter (statuses as of 03/03/2024) Resolved Problems Problem Noted Date Diagnosed Date Resolved Date Disorder of parathyroid gland 04/03/2023 04/03/2023 Food insecurity 10/24/2020 03/02/2021 Overview: Per [facility] Protocol DM type 2 nursing care encounter 03/16/2020 07/04/2023 Overview (07/04/2023): duplicate History of anemia 09/17/2019 11/07/2020 History of gastrointestinal hemorrhage 11/06/2018 07/23/2019 Overview (07/23/2019): Historical. Leg weakness, bilateral 07/17/201810/17 Hypertensive kidney disease with CKD stage IV 05/06/19 19 11/07/2020 Deviated nasal septum 11/02/20162020 Hypertrophy of both inferior nasal turbinates 11/03/19 17 11/07/2020 Chronic rhinitis 11/02/2016 10/31/2017 Sensorineural hearing loss ( SNHL) of both ears 11/02/2016 11/07/2020 Kidney disease, chronic, sta ge IV (GFR 15-29 ml/min) 07/04/2015 11/07/2020 Overview: Per CKD protocol #1 HTN, goal below 130/80 11/11/201305/08 HTN, goal below 130/80 07/30/201211/11 Kidney disease, chronic, sta ge III (GFR 30-59 ml/min) 06/23/2012 07/08/2015 Overview: Per CKD protocol #1 CKD (chronic kidney disease), stage II 12/17/2011 06/23/2012 HTN, goal below 140/80 11/05/201107/30 Overview: Per HTN Protocol #27. HTN, GOAL BELOW 140/90 01/21/200904/13 Overview (04/13/2009): Modified per HTN Taxonomy. Anemia 08/11/2008 11/07/2020 Type 2 diabetes mellitus wit h hemoglobin A1c goal of less than 7.0% 05/12/2008 01/13/2009 Overview (07/12/2015): Per Diabetes Taxonomy. ICD-10 update of inactive term HTN, goal below 140/90 05/12/200801/21 Overview (01/21/2009): Modified per HTN Taxonomy. Mixed dyslipidemia 05/12/2008 Overview (02/22/2009): Per Lipid Taxonomy. Anxiety state 05/12/2008 10/31/2017 High potassium 09/17/2019 documented as of this encounter (statuses as of 03/03/2024) Immunizations Name Administration Dates Next Due COVID-19 mRNA, LNP-s, No Pre serve, 2-Dose Series (Speedment) 02/14/2021,06/30/2020,06/09/2020 Covid-19, Mrna, Lnp-s, Pf, B ivalent, 30 Mcg, IM, 12 yrs and above (Pfizer) 01/23/2022 Hepatitis B, 20+ yrs 09/27/2020,03/28/2020 Pneumococcal Conjugate Vacc, 13 Valent (Prevnar) 10/04/2015 Pneumococcal Polysaccharide PPV23 (Pneumovax) 10/07/2013,05/12/2008 Season Influenza, Quad, PF, Adjuvanted, 65+ Yrs, IM (FLUAD) 11/30/2019 Seasonal Influenza Vac., MDV , IM, 0.5 mL (Fluzone) 12/14/2013,01/19/2013,11/21/2011,12/05,01/24/2010 Seasonal Influenza Virus Vac cine, Unspecified Formulation 11/30/2019,12/26/2018,12/05/2017,01/07,01/24/2016,12/14/2013,01/19/2013 ,11/21/2011,12/05/2010,01/24/2010 Seasonal Influenza, PF, 6 M & above, IM , (FluLaval or Fluzone) 12/05/2017,01/07/2017 Seasonal Influenza, Quadriva lent Hd (Fluzone Hd) 11/15/2022,01/19/2021 Seasonal Influenza, Quadriva lent, No Preserve, IM 01/24/2016,02/22/2015 Seasonal Influenza, Trivalen t, Adjuvanted, 65+ YRS, PF, (Fluad) 12/13/2021,12/26/2018 TDAP (age 10 and older)(Boostrix) 09/17/2019 TDAP, Age 7 and older, IM (Adacel) 05/12/2008 Zoster Vaccine Recombinant (Shingrix) 05/23/2021 ,03/07/2020 documented as of this encounter Social History Tobacco Use Types Packs/Day Years Used Date Smoking Tobacco: Former Cigarettes 0.8 50.9 0 03/18/1959 - 02/15/2010 Smokeless Tobacco: Never Comments:smokes occasional c igarette with beer Alcohol Use Standard Drinks/Week Comments Not Currently 0 (1 standard drink = 0.6 oz pur e alcohol) 3-4 beers/week AUDIT-C Answer Date Recorded Q1: How often do you have a drink containing alc ohol? Monthly or less 03/01/2020 Q2: How many drinks containi ng alcohol do you have on a typical day when you are drinking? Not asked 03/01/2020 Q3: How often do you have si x or more drinks on one occasion? Not asked 03/01/2020 PHQ-2 Answer Date Recorded PHQ Adult Total Score 0 01/13/2024 [facility]ational Stress Questionnaire Answer Date Recorded Do you feel stress - tense, restless, nervous, or anxious, or unable to sleep at night because your mind is troubled all the time - these days? Not at all 08/29/2020 Exercise Vital Sign Answer Date Recorde d On average, how many days pe r week do you engage in moderate to strenuous exercise (like a brisk walk)? 2 days 08/29/2020 On average, how many minutes do you engage in exercise at this level? 60 min 08/29/2020 Hunger Vital Sign Answer Date Recorded Within the past 12 months, y ou worried that your food would run out before you got the money to buy more. Never true 01/13/20 24 Within the past 12 months, t he food you bought just didn't last and you didn't have money to get more. Never true 01/13/2024 Childcare Answer Date Recorded Do you feel overwhelmed with taking care of a child, family member or friend? No 01/13/2024 Does your family need help f inding childcare? (Household - for ages 0-17 years) Not on file 01/13/2024 Clothing Answer Date Recorded Have you been unable to get clothing when it was really needed? No 01/13/2024 Is your family able to get c lothes or diapers when needed? (Household - for ages 0-17 years) Not on file 01/13/2024 Personal Safety Answer Date Recorded Do you feel unsafe or have concerns for your saf ety? No 01/13/2024 Do you have concerns for you r family's safety? (Household - for ages 0-17 years) Not on file 01/13/2024 Utilities Answer Date Recorded Do you have trouble paying y our heating, water, or electric bill? No 01/13/2024 Is your family able to pay t he heat, water, or electric bill? (Household - for ages 0-17 years) Not on file 01/13/2024 Does your family have access to good internet? (Household - for ages 0-17 years) Not on file 01/13/2024 Employment Status Answer Date Recorded Are you unemployed or without regular income? No 01/13/2024 Does the household have a re lar source of income? (Household - for ages 0-17 years) Not on file 01/13/2024 Social Connections Answer Date Recorded How often do you feel lonely or isolated from th ose around you? Never 01/13/2024 Financial Resource Strain Answer Date R ecorded Do you have any trouble payi ng for your medications, or do you think you might in the future? No 01/13/2024 Does your family have troubl e paying for medicine? (Household - for ages 0-17 years) Not on file 01/13/2024 Transportation Needs Answer Date Record ed Do you have trouble getting a ride to medical visits or work? (Adult - for ages 18 years and over) Not on file 01/13/2024 Does your family have a hard time getting a ride to doctors visits? (Household - for ages 0-17 years) Not on file 01/13/2024 Has lack of transportation k ept you from medical appointments, meetings, work, or from getting things needed for daily living? Check all that apply. No 01/13/2024 Do you (or your family) have trouble finding or paying for a ride (transportation)? (Household - for ages 0-17 years) Not on file 01/13/2024 Housing Stability Answer Date Recorded Do you currently live in a s helter or have no steady place to sleep at night? No 01/13/2024 Do you think you are at risk of becoming homeless? (Adult - for ages 18 years and over) Not on file 01/13/2024 Does your family worry about paying for your home or becoming homeless? (Household - for ages 0-17 years) Not on file 1 Are you homeless or worried that you might be in the future? No 01/13/2024 Are you (or your family) ash eless or worried that you might be in the future? (Household - for ages 0-17 years) Not on file Food Insecurity Answer Date Recorded Do you need food for this week? No 01/13/2024 Are you able to get enough f ood for your family? (Household - for ages 0-17 years) Not on file 01/13/2024 Does your family need food t his week? (Household - for ages 0-17 years) Not on file 01/13/2024 Do you always have enough fo od for your family? (Household - for ages 0-17 years) Not on file 01/13/2024 Sex and Gender Information Value Date Recorded Sex Assigned at Not on file Legal Sex Male 5:28 AM EST Gender Identity Not on file Sexual Orientation Not on file documented as of this encounter Functional Status * Are you deaf or do you have serious difficulty hearing? Answer Date of Assessment Author No 07/16/2018 9:55 PM Summer Bray LPN * Are you blind or do you have serious difficulty seeing, even when wearing glasses? Answer Date of Assessment Author No 07/16/2018 9:55 PM Summer Bray LPN * Does this person have serious difficulty walking or climbing stairs? Answer Date of Assessment Author Yes 02/21/2021 10:15 AM EST Summer Gaxiola ch, LPN * Do you have difficulty dressing or bathing? (5 years old or older) Answer Date of Assessment Author No 07/16/2018 9:55 PM Summer Bray LPN * Because of a physical, mental, or emotional condition, do you have difficulty doing errands alone such as visiting a doctors office or shopping? (15 years old or older) Answer Date of Assessment Author No 07/16/2018 9:55 PM EDT Summer Greenfield LPN documented as of this encounter Mental Status * Because of a physical, mental, or emotional condition, do you have serious difficulty concentrating, remembering, or making decisions? (5 years old or older) Answer Entry Date Author No 07/16/2018 9:55 PM EDT Summer Greenfield LPN documented in this encounter Miscellaneous Notes * Telephone Encounter - Denita Starr [facility] - 03/03/2024 7:52 AM ESTSigned Prescriptions: Disp Refills Famotidine 20 MG Oral Tablet (Pepcid) 45 Tab*1 Sig: take one tablet by mouth every other dayAuthorizing Provider: NIGHAT NOVOA User: DENITA STARR-- Electronically signed by Denita Satrr [facility] at 03/03/2024 7:52 AM EST documented in this encounter Plan of Treatment Upcoming Encounters Date Type Department Care Team (Late st Contact Info) Description 03/03/2024 11:00 AM EST Office Visit Transplant Clinic, [place] [id number] Narcisa Jones MD [facility] [place] [phone] Samuel Schulz MD [address], [place] Nurse [facility] [address] [place] [address] Yolanda Noonan LSW [facility] [place] 03/03/2024 3:00 PM EST Laboratory Outpatient Laboratory, [address] [phone] Maxim, Ellen B1a [address] [facility] [place] [address] 03/10/2024 8:20 AM EST Office Visit General Internal Medicine [facility] [address] [place] [address] Manuel Marion, DO [address] [place] [address] 06/09/2024 8:45 AM EDT Office Visit Urology, [facility] [address] [email or web address] [place] [address] Adolfo Tian MD [address] [place] [phone] Health Maintenance Due Date Last Done Comments Diabetic Eye Exam 12/26/2019 12/25/2018, , 12/27/2014, Additional history exists Hepatitis B Vaccine (3 of 3 - 19+ 3-dose series) 11/22/2020 09/27/2020, 03/28/2020 Adult Wellness Visit 04/24/2023 04/24/2022 COVID-19 Vaccine ( season) 2023 01/23/2022, 02/14/2021, 06/30/2020, Additional history exists Influenza Vaccine (FLU shot) (#1) 2023 11/15/2022, 12/13/2021, 01/19/2021, Additional history exists HbA1c 05/07/2024 11/05/2023, 12/09/2022, 03/20/2022, Additional history exists Depression Screening 01/12/2025 01/13/2024, 11/05/19 24 Diabetic Foot Exam 03/02/2025 03/02/2024, 0 03/19/2023, 01/23/2022, Additional history exists DTap/Tdap Vaccines (3 - Td or Tdap) 09/16/2029 09/17/2019, 05/12/2008 Pneumococcal Vaccine: 65+ Years Completed 10/04/2015, 10/07/2013, 05/12/2008 Colonoscopy Discontinued 06/08/2020, 07/16, 10/19/2016, Additional history exists RETIRED - COLONOSCOPY-ANNUAL AGES 18-100 Discontinued 06/08/2020, 07/28/2018, 10/19/2016, Additional history exists Nephrology Referral Discontinued 08/20/2023, 01/22/2013, 12/04/2011 Lung Cancer Screening Completed 11/26/2023 , 10/04/2022, 10/03/2021, Additional history exists HPV (Gardasil) Vaccine Aged Out No lo nger eligible based on patient's age to complete this topic MENINGOCOCCAL (MENACTRA/MENVEO) Aged Out No longer eligible based on patient's age to complete this topic documented as of this encounter Medical Devices Not on filedocumented as of this encounter Advance Directives * Full Code (Latest Code Status on File) Date Activated Date Inactivated Comments 07/17/2018 1:29 AM 07/18/2018 10:02 PM This order re flects the patients wishes and were consensually agreed upon. Question Answer Comments Discussion of Advance Directives occurred with: Patient Care Teams Alterations Workroom Clerk Relationship Specialty Start Date End Date Nighat Novoa DO [address] [place] [address] PCP - General Family Medicine 10/04/15 documented as of this encounter
--- OUTSIDE RECORDS SUMMARY | 2024-03-17 22:09 | External Medical Summary | Summary of Care ---
Author Name Unknown Organization [facility] Address [address] [facility] [address] Phone [phone] Care Team Providers Care Shorts Sifter Name Role Phone Fiona Novoa DO Primary Care Provider [phone] Reason for Visit * Reason Comments Foreign Body * Evaluate & Treat - Unlimited Visits (Within 3 days (urgent)) - Authorized Specialty Diagnoses / Procedures Referred By Niko kulkarni Referred To Contact Otolaryngology Diagnoses Uses hearing aid Fiona Novoa DO [address] [place] [address] Phone: tel: fax: Referral ID Status Reason Start Date Expiration Date Visits Requested Visits Authorized [id number] Authorized Specialty Services Required 02/20/[phone] Encounter Details Date Type Department Care Team (Late st Contact Info) Description 02/20/2024 8:30 AM EST Office Visit Otolaryngology [facility] [address] [place] [address] Garth Hernandez PA-C [address] [place] [phone] Acute foreign body of left ear canal, initial encounter* Allergies Active Allergy Reactions Criticality Noted Date Comments Charlie Inhibitors 11/06/2018 Sitagliptin Other (Please comment) 02/22/2015 lightheadedness Statins High 11/06/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 Wound Dressing Adhesive 11/12/2023 TAPE-- SKIN TEARS documented as of this encounter (statuses as of 02/20/2024) Medications Cholecalciferol (VITAMIN D) 1000 UNIT Capsule Take 2 Capsules by mouth in the morning. 09/10/19 15 Active CYANOCOBALAMIN (VITAMIN B-12) 100 MCG Tablet DAILY 10/28/19 19 Active Vitamin C 100 MG Oral Tablet Take 1 Tablet by mouth in the morning. 06/30/19 22 Active OneTouch Verio In Vitro Strip (Glucose Blood)Indications: Type 2 diabetes mellitus with hemoglobin A1c goal of less than 7.0% (HCC) USE TO TEST BLOOD SUGAR UP TO 4 TIMES DAILY 300 Strip 3 01/07/20 23 024 Active Additional Information Patient not taking.Reported on 01/29/2024 FreeStyle Lizbeth 2 [place] DeviceIndications: Type 2 diabetes mellitus with hemoglobin A1c goal of less than 8.0% (HCC) Use as directed. Dx E11.9 1 Each 1 01/15/20 23 Active Additional Information Patient not taking.Reported on 11/05/2023 FreeStyle Lizbeth 2 SensorIndications: Type 2 diabetes mellitus with hemoglobin A1c goal of less than 8.0% (HCC) Use as directed. Dx E11.9 1 Each 5 01/15/20 23 Active Additional Information Patient not taking.Reported on 01/29/2024 Ezetimibe 10 MG Oral Tablet (Zetia)Indications :Mixed hyperlipidemia Take 1 Tablet by mouth in the morning. 90 Tablet 3 01/16/2024 10:40 AM EDT 07/01/19 24 Active Famotidine 20 MG Oral Tablet (Pepcid) take one tablet by mouth every other day 45 Tablet 1 12/06/2023 3:44 PM EDT 08/30/19 24 Active Calcium Acetate (Phos Binder) 667 [...] 02/17/2024 2:58 PM EST 02/14/20 24 Active documented as of this encounter (statuses as of 02/20/2024) Active Problems Problem Noted Date Diagnosed Date [...] as of this encounter (statuses as of 02/20/2024) Resolved Problems Problem Noted Date Diagnosed Date [...] as of this encounter (statuses as of 02/20/2024) Immunizations Name Administration Dates Next Due COVID-19 mRNA, LNP-s, No Pre serve, 2-Dose Series (Pfizer) 02/14/2021,06/30/2020,06/09/2020 Covid-19, Mrna, Lnp-s, Pf, B ivalent, [...] Recorded PHQ Adult Total Score 0 01/13/2024 [facility] of Occupat ional Health - Occupational Stress Questionnaire Answer Date Recorded [...] No 01/13/2024 Does the household have a [facility] source [facility] income? (Household - for ages [...] on file documented as of this encounter Last Filed Vital Signs Vital Sign Reading Time Taken Comments Blood Pressure - - Pulse - - Temperature 36.4 C (97.5 F) 02/20/2024 8:38 AM ES T Respiratory Rate - - Oxygen Saturation - - Inhaled Oxygen Concentration - - Weight 71.1 kg (156 lb 12.8 oz) 02/20/2024 8:38 AM EST Height - - Body Mass Index 22.99 12/31/2023 8:45 AM EDT documented in this encounter Functional Status * Are you deaf or do you have serious difficulty hearing? Answer Date of Assessment Author No 07/16/2018 9:55 PM EDT Summer Greenfield LPN * Are you blind or do you have serious difficulty seeing, even when wearing glasses? Answer Date of Assessment Author No 07/16/2018 9:55 PM EDT Summer Greenfield LPN * Does this person have serious difficulty walking or climbing stairs? Answer Date of Assessment Author Yes 02/21/2021 10:15 AM EST Summer Gaxiola ch, LPN * Do you have difficulty dressing or bathing? (5 years old or older) Answer Date of Assessment Author No 07/16/2018 9:55 PM EDT Summer Greenfield LPN * Because of a physical, mental, [...] Summer Greenfield LPN documented in this encounter Progress Notes * Garth Hernandez PA-C - 02/20/2024 8:45 AM EST 02/20/2024 Nursing Notes: Lety Cantu LPN 02/20/24 0838 Signed Pt presents today due to a piece of his hearing aid falling off inside his left ear. HISTORY OF PRESENT ILLNESS This 78 year old YO male is seen at the request of Fiona Novoa DO for the evaluation of FB left ear canal. Hearing aid tip in left ear. He notes he thinks it is too big for his ear. It is his mother's old hearing aid. He does not see an automotive project engineer and is not interested at this time. Denies hx of otologic surgeries. Problem List Patient Active Problem List Diagnosis Diverticulosis of colon Type 2 diabetes mellitus with hemoglobin A1c goal of less than 8.0% ([facility]) Dyslipidemia HTN, goal below 130/80 CHARLIE inhibitor intolerance Vitamin D deficiency Type 2 diabetes mellitus with chronic kidney disease on chronic dialysis, with long-term current use of insulin (HCC) TORIN (generalized anxiety disorder) Statin myopathy Type 2 diabetes mellitus with mild nonproliferative diabetic retinopathy without macular edema, left eye ([facility]) Renal osteodystrophy CKD, patient preferred treatment modality peritoneal dialysis ESRD on dialysis (HCC) Hyperparathyroidism, secondary renal (HCC) Hypertensive kidney disease with end-stage renal disease on dialysis (HCC) Persistent atrial fibrillation (HCC) Gastroesophageal reflux disease without esophagitis Dialysis AV fistula malfunction (HCC) Past Medical History: Diagnosis Date Anxiety state Benign neoplasm of colon Benign neoplasm of colon 07/23/2011 COLONOSCOPY FLEXIBLE PROXIMAL DIAGNOSTIC performed by EMELI NAVARRO at [facility],HYPERPLASTIC POLYPS REPEAT COLONOSCOPY IN 5 YEARS Diverticulosis of colon DM type 2, goal A1c below 7 Dyslipidemia, goal to be determined ESRD on dialysis (HCC) 11/07/2020 TORIN (generalized anxiety disorder) 10/31/2017 HTN, goal below 140/90 Stage 5 chronic kidney disease not on chronic dialysis (HCC) Past Surgical History: Procedure Laterality Date CARPAL TUNNEL SURGERY Right 2000 COLONOSCOPY THRU STOMA, W/BIOPSY 2005 3 polyps COLONOSCOPY, DIAGNOSTIC (RECTUM) 07/23/2011 COLONOSCOPY FLEXIBLE PROXIMAL DIAGNOSTIC performed by EMELI NAVARRO at [facility],HYPERPLASTIC POLYPS REPEAT COLONOSCOPY IN 5 YEARS COLONOSCOPY, DIAGNOSTIC (RECTUM) 10/19/2016 adenomatous polyp, diverticulosis, repeat 5 yrs/[facility] COLONOSCOPY, DIAGNOSTIC (RECTUM) 07/28/2018 adenomatous polyps, diverticulosis, fair prep, repeat 1 yr/[facility] COLONOSCOPY, DIAGNOSTIC (RECTUM) 06/08/2020 diverticulosis / [facility] EGD, FLEXIBLE, DIAGNOSTIC 11/28/2017 esophagitis, +H pylori / [facility] EGD, FLEXIBLE, DIAGNOSTIC 07/28/2018 duodenal erosion, gastritis, repeat 2 mo/[facility] EGD, FLEXIBLE, DIAGNOSTIC 11/03/2018 normal bx / [facility] EGD, FLEXIBLE, DIAGNOSTIC 01/11/2021 sm hiatal hernia / [facility] INFORMATION Right 2021 R arm fistula creation. INJECT DX/THER SUBSTANCE INTERLAMINAR LUMBAR/SACRAL W IMAGE GUIDE 03/01/2023 INJECTION SPINE LUMBAR OR SACRAL performed by Calvin Voss DO at OR [facility] INTRO CATH DIALYSIS CIRCUIT W/TRANSLUM BALLOON ANGIOPLASTY Right 02/22/2022 AV FISTULOGRAM & PERIPHERAL ANGIOPLASTY performed by Valdemar Nugent MD at OR [facility] REMOVE CATARACT, INSERT LENS PROSTH 2007 REPLACE,COMP,ELIU CENT ACC DEV N/A 12/31/2023 REPLACEMENT COMPLETE TUNNELED CENTRAL CATHETER NO PORT performed by Brian Long MD at OR [facility] STRESS TEST 2003 normal per pt TRANSLUMINAL BALLOON ANGIOPLASTY CENTRAL DIALYSIS SEGMENT W/IMAGING Right 02/22/2022 ANGIOPLASTY CENTRAL DIALYSIS SEGMENT performed by Valdemar Nugent MD at OR [facility] Medications Current Outpatient Medications Medication Sig Dispense Refill Cholecalciferol (VITAMIN D) 1000 UNIT Capsule Take 2 Capsules by mouth in the morning. CYANOCOBALAMIN (VITAMIN B-12) 100 MCG Tablet DAILY Vitamin C 100 MG Oral Tablet Take 1 Tablet by mouth in the morning. OneTouch Verio In Vitro Strip (Glucose Blood) USE TO TEST BLOOD SUGAR UP TO 4 TIMES DAILY (Patient not taking: Reported on 01/29/2024) 300 Strip 3 FreeStyle Lizbeth 2 [place] Device Use as directed. Dx E11.9 (Patient not taking: Reported on 11/05/2023) 1 Each 1 FreeStyle Lizbeth 2 Sensor Use as directed. Dx E11.9 (Patient not taking: Reported on 01/29/2024) 1 Each 5 Ezetimibe 10 MG Oral Tablet (Zetia) Take 1 Tablet by mouth in the morning. 90 Tablet 3 Famotidine 20 MG Oral Tablet (Pepcid) take one tablet by mouth every other day 45 Tablet 1 Calcium Acetate (Phos Binder) 667 MG Oral Capsule (Phoslo) take 1 capsule by mouth with meals and 1capsule with snacks 450 Capsule 6 Metoprolol Succinate ER 25 MG Oral Tablet Extended Release 24 Hour (toPROL XL) Take 1/2 tablet by mouth after dialysis on Saturday, Saturday and Saturday Metoprolol Succinate ER 25 MG Oral Tablet Extended Release 24 Hour (toPROL XL) take 1/2 tablet by mouth on saturday, saturday and saturday after dialysis 15 Tablet 6 Losartan Potassium 25 MG Oral Tablet (Cozaar) take 2 tablets by mouth every morning 60 Tablet 5 No current facility-administered medications for this visit. Allergies Review of patient's allergies indicates: Allergen Reactions Statins myopathy Charlie Inhibitors Januvia [Sitagliptin] Other (Please comment) lightheadedness Wound Dressing Adhesive TAPE-- SKIN TEARS Family History Family History Problem Relation Name Age of Onset Diabetes Mother Cancer Mother breast cancer Diabetes Other on dad's side Diabetes Father Diabetes Sister No Known Problems Son Social History Social History Tobacco Use Smoking status: Former Current packs/day: 0.00 Average packs/day: 0.8 packs/day for 50.9 years (38.2 ttl pk-yrs) Types: Cigarettes Start date: 03/18/1959 Quit date: 02/15/2010 Years since quittin.0 Smokeless tobacco: Never Tobacco comments: smokes occasional cigarette with beer Substance Use Topics Alcohol use: Not Currently Comment: 3-4 beers/week Vaping/E-Cigarette Use Vaping/E-Cigarette Use Never User Vaping/E-Cigarette Substances Nicotine No Cannabidiol (CBD) No Vaping/E-Cigarette Devices Disposable No REVIEW OF SYMPTOMS: Negative for constitutional, eyes, cardiac, pulmonary, hepatic, renal, digestive, hematologic, epileptic, syncopal, musculo-skeletal, mental health, integumentary, hypertensive, lipid, arthritic, diabetic, thyroid, or neurologic disorders (except as listed in the PMH and Problem List). PHYSICAL EXAMINATION: Vital Signs: Filed Vitals: 02/20/24 0838 Temp: 36.4 C (97.5 F) TempSrc: Tympanic Weight: 71.1 kg (156 lb 12.8 oz) General: this is a healthy appearing male who appears his stated age. The patient is alert and appropriately verbally conversant without hoarseness. Face: The face was inspected and no cutaneous masses or lesions were visualized. There was no erythema or edema noted. Facial movement was symmetric without weakness. IN ORDER TO BETTER EXAMINE THE EARS, THE PATIENT WAS EXAMINED USING THE OPERATING MICROSCOPE. FINDINGS ARE NOTED BELOW. Ears: Examination of the ears revealed that the auricles were normally formed with no lesions. The right external auditory canal was WNL. The right TM was WNL. The right middle ear space was WNL. The left external auditory canal with foreign body-- silicone hearing aid tip. It was removed usingforceps atraumatically by me. The left TM was WNL. The left middle ear space was WNL ASSESSMENT: 1. Acute foreign body of left ear canal, initial encounter Plan: F/U PRN. Pt verbalized understanding and agrees with plan. Questions/Concerns addressed. BAKARI Rojas Otolaryngology - Head and Neck Surgery [place], [place] 02/20/24 documented in this encounter Nursing Notes * Lety Cantu LPN - 02/20/2024 8:37 AM EST Pt presents today due to a piece of his hearing aid falling off inside his left ear. documented in this encounter Plan of Treatment Upcoming Encounters Date Type Department Care Team (Late st Contact Info) Description 03/03/2024 11:00 AM EST Office Visit Transplant Clinic, [place] [address] [place] [id number] Narcisa Jones MD [address] [place] [address] Samuel Schulz MD [address] [place] [address] Nurse Bryanna Renal Transplant [facility] [address] [place], [place] [id number] Yolanda Noonan LSW [facility] [place] [address] 03/03/2024 3:00 PM EST Laboratory Outpatient Laboratory, [address] [phone] [facility] [place] [address] 06/09/2024 8:45 AM EDT Office Visit Urology, [facility] [address] [facility] [place] [address] Adolfo Tian MD [address] [place] [id number] Scheduled Referrals Name Type Priority Associated Diagnoses Order Schedule ADULT/PEDS OTOLARYNGOLOGY REFERRAL OP Referral Within 3 days (urgent) Uses hearing aid Ordered: 02/20/2024 Health Maintenance Due Date Last Done Comments Diabetic Eye Exam 12/26/2019 12/25/2018, , 12/27/2014, Additional history exists Hepatitis B Vaccine (3 of 3 - 19+ 3-dose series) 11/22/2020 09/27/2020, 03/28/2020 Adult Wellness Visit 04/24/2023 04/24/2022 COVID-19 Vaccine ( season) 2023 01/23/2022, 02/14/2021, 06/30/2020, Additional history exists Influenza Vaccine (FLU shot) (#1) 2023 11/15/2022, 12/13/2021, 01/19/2021, Additional history exists Diabetic Foot Exam 03/19/2024 03/19/2023, 1 03/25/2021, 02/01/2021, Additional history exists HbA1c 05/07/2024 11/05/2023, 12/0 09/2022, 03/20/2022, Additional history exists Depression Screening 01/12/2025 01/13/2024, 11/05/19 DTap/Tdap Vaccines (3 - Td or Tdap) [...] Not on filedocumented as of this encounter Visit Diagnoses Diagnosis Acute foreign body of left ear canal, initial encounter- Primary documented in this encounter Advance Directives * Full Code (Latest Code Status on File) Date Activated Date Inactivated Comments 07/17/2018 1:29 AM 07/18/2018 10:02 PM This order re flects the patients wishes and were consensually agreed upon. Question Answer Comments Discussion of Advance Directives occurred with: Patient Care Teams Shorts Sifter Relationship Specialty Start Date End Date Fiona Novoa DO [address] [place] [address] PCP - General Family Medicine 10/04/15 documented as of this encounter
--- OUTSIDE RECORDS SUMMARY | 2024-03-17 22:09 | External Medical Summary | Summary of Care ---
Author Name Unknown Organization [facility] Address [address] [place] [address] Phone [phone] Care Team Providers Care Fine Grade Operator Name Role Phone BrightFiona Lottie CARTER Primary Care Provider [phone] Reason for Visit * Reason Onset Date Comments Appointment 03/09/2024 Encounter Details Date Type Department Care Team (Late st Contact Info) Description 03/09/2024 Telephone Transplant Clinic, [place] [address] [place] [address] Mike Lomas MD [address] [place] [address] Appointment Allergies Active Allergy Reactions Criticality Noted Date Comments Charlie Inhibitors 11/06/2018 Sitagliptin Other (Please comment) 02/22/2015 lightheadedness Statins High 11/06/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 Wound Dressing Adhesive 11/12/2023 TAPE-- SKIN TEARS documented as of this encounter (statuses as of 03/09/2024) Medications Cholecalciferol (VITAMIN D) 1000 UNIT Capsule Take 2 Capsules by mouth in the morning. 5 Active CYANOCOBALAMIN (VITAMIN B-12) 100 MCG Tablet DAILY 9 Active Vitamin C 100 MG Oral Tablet Take 1 Tablet by mouth in the morning. 2 Active FreeStyle Lizbeth 2 [place] DeviceIndications: Type 2 diabetes mellitus with hemoglobin A1c goal of less than 8.0% (HCC) Use as directed. Dx E11.9 1 Each 1 3 Active FreeStyle Lizbeth 2 SensorIndications: Type 2 diabetes mellitus with hemoglobin A1c goal of less than 8.0% ([facility]) Use as directed. Dx E11.9 1 Each 5 3 Active Ezetimibe 10 MG Oral Tablet (Zetia)Indications :Mixed hyperlipidemia Take 1 Tablet by mouth in the morning. 90 Tablet 3 01/16/2024 10:40 AM EDT 4 Active Calcium Acetate (Phos Binder) 667 MG Oral Capsule (Phoslo) take 1 capsule by mouth with meals and 1 capsule with snacks 450 Capsule 6 11/19/2023 10:41 AM EDT 4 Active Metoprolol Succinate ER 25 MG Oral Tablet Extended Release 24 Hour (toPROL XL) Take 1/2 tablet by mouth after dialysis on Saturday, Saturday and Saturday 4 Active Metoprolol Succinate ER 25 MG Oral Tablet Extended Release 24 Hour (toPROL XL) take 1/2 tablet by mouth on saturday, saturday and saturday after dialysis 15 Tablet 6 01/24/2024 2:10 PM EST 4 Active Losartan Potassium 25 MG Oral Tablet (Cozaar) take 2 tablets by mouth every morning 60 Tablet 5 02/17/2024 2:58 PM EST 4 Active Famotidine 20 MG Oral Tablet (Pepcid) take one tablet by mouth every other day 45 Tablet 1 4 Active Cephalexin 500 MG Oral CapsuleIndications :Cellulitis of fifth toe of right foot,Avulsion of toenail, initial encounter Take 1 Capsule by mouth in the morning and 1 Capsule before bedtime. Do all this for 10 days. 20 Capsule 03/02/2024 12:16 PM EST 4 03/12/20 24 Active Mupirocin 2 % External Ointment (Bactroban)Indicat ions:Cellulitis of fifth toe of right foot Apply topically to affected area 2 times a day for 10 days. To affected area for up to 14 days. 22 g 1 03/02/2024 12:16 PM EST 4 03/16/20 24 Active documented as of this encounter (statuses as of 03/09/2024) Active Problems Problem Noted Date Diagnosed Date [...] as of this encounter (statuses as of 03/09/2024) Resolved Problems Problem Noted Date Diagnosed Date [...] as of this encounter (statuses as of 03/09/2024) Immunizations Name Administration Dates Next Due COVID-19 mRNA, LNP-s, No Pre serve, 2-Dose Series ([employer]) 02/14/2021,06/30/2020,06/09/2020 Covid-19, Mrna, Lnp-s, Pf, B ivalent, [...] Recorded PHQ Adult Total Score 0 01/13/2024 [facility] of Occupat ional Health - Occupational Stress [...] No 01/13/2024 Does the household have a [facility] source of [facility]? (Household - for ages [...] No 07/16/2018 9:55 PM Summer Bray LPN documented as of this encounter Mental Status * Because of a physical, mental, or emotional condition, do you have serious difficulty concentrating, remembering, or making decisions? (5 years old or older) Answer Entry Date Author No 07/16/2018 9:55 PM EDT Summer Greenfield LPN documented in this encounter Miscellaneous Notes * Telephone Encounter - Connie Newton OSA - 03/09/2024 11:35 AM EST Called son, SADE, lm to return call to schedule Annual eval, can gonzales call to me if son calls back [phone] documented in this encounter Plan of Treatment Upcoming Encounters Date Type Department Care Team (Late st Contact Info) Description 03/10/2024 8:20 AM EST Office Visit General Internal Medicine [facility] [address] [facility] [place] [address] Manuel Marion, [address] [place] [address] 05/05/2024 9:00 AM EST Office Visit Transplant Clinic, [address] [address] Katie Perez MD [address] [place] [address] Samuel Schulz MD [facility] [address] [place], [place] Nurse Bryanna Renal Transplant [facility] [place] [address] Dorina Vance LSW [address] [place] [address] 05/05/2024 1:00 PM EST Laboratory Outpatient Laboratory, [address] [phone] [place] [facility] [place] [address] 05/05/2024 1:30 PM EST Appointment Radiology, [address] [phone] 05/05/2024 1:45 PM EST Imaging Radiology [facility] 1st Floor, [place] [address] [place] [address] 06/09/2024 8:45 AM EDT Office Visit Urology, [facility] [address] [place] [address] Adolfo Tian MD [address] [place] [id number] Health Maintenance Due Date Last Done Comments [...] Advance Directives occurred with: Patient Care Teams Fine Grade Operator Relationship Specialty Start Date End Date Fiona Novoa DO [address] [facility] [place] [address] PCP - General Family Medicine 10/04/15 documented as of this encounter
--- OUTSIDE RECORDS SUMMARY | 2024-03-17 22:09 | External Medical Summary ---
Author Name Unknown Address Unknown Organization : Laboratory Report Ordering Provider Test Date Status SANCHEZ LOWERY 02/24/2024 05:15:00 Final Observation Date Value Abnormality Reference (Units ) Status REFERENCE LAB SCANNED REPORT 02/24/2024 05:15:00 See Scanned Report Final [facility] STORAGE FEE 02/24/2024 05:15:00 Serum not tested, on hold at [facility] HLA Lab Final Performing Location
--- OUTSIDE RECORDS SUMMARY | 2024-03-17 22:09 | External Medical Summary | Summary of Care ---
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 Name Role Phone Fiona Novoa DO Primary Care Provider [phone] Reason for Visit * Reason Comments Follow Up Encounter Details Date Type Department Care Team (Late st Contact Info) Description 03/10/2024 8:20 AM EST Office Visit General Internal Medicine Kris [place] [place] [address] [facility] [place] [id number] Manuel Marion DO [address] [facility] [place] [address] Cellulitis of fifth toe of right foot*; Type 2 diabetes mellitus with chronic kidney disease on chronic dialysis, with long-term current use of insulin ([facility]); ESRD on dialysis ([facility]); HTN, goal below 130/80 Allergies Active Allergy Reactions Criticality Noted Date Comments Charlie Inhibitors 11/06/2018 Sitagliptin Other (Please comment) 02/22/2015 lightheadedness Statins High 11/06/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 Wound Dressing Adhesive 11/12/2023 TAPE-- SKIN TEARS documented as of this encounter (statuses as of 03/10/2024) Medications Cholecalciferol (VITAMIN D) 1000 UNIT Capsule Take 2 Capsules by mouth in the morning. 5 Active CYANOCOBALAMIN (VITAMIN B-12) 100 MCG Tablet DAILY 9 Active Vitamin C 100 MG Oral Tablet Take 1 Tablet by mouth in the morning. 2 Active FreeStyle Lizbeth 2 Bozeman DeviceIndications: Type 2 diabetes mellitus with hemoglobin A1c goal of less than 8.0% ([facility]) Use as directed. Dx E11.9 1 Each 1 3 Active FreeStyle Lizbeth 2 SensorIndications: Type 2 diabetes mellitus with hemoglobin A1c goal of less than 8.0% ([facility]) Use as directed. Dx E11.9 1 Each [...] as of this encounter (statuses as of 03/10/2024) Active Problems Problem Noted Date Diagnosed Date [...] as of this encounter (statuses as of 03/10/2024) Resolved Problems Problem Noted Date Diagnosed Date [...] as of this encounter (statuses as of 03/10/2024) Immunizations Name Administration Dates Next Due COVID-19 [...] 0 03/18/1960 - 02/15/2010 Smokeless Tobacco: Never Tobacco Cessation:Counseling Given: Not Answered Comments:smokes occasional cigarette with beer Alcohol Use Standard Drinks/Week Comments [...] Recorded PHQ Adult Total Score 0 01/13/2024 [facility] - Occupational Stress [...] Sign Reading Time Taken Comments Blood Pressure 125/61 03/10/2024 8:25 AM EST Pulse 86 03/10/2024 8:25 AM EST Temperature 35.3 C (95.5 F) 03/10/2024 8:25 AM ES T Respiratory Rate - - Oxygen Saturation - - Inhaled Oxygen Concentration - - Weight 69.3 kg (152 lb 12.8 oz) 03/10/2024 8:25 AM EST Height - - Body Mass Index 22.4 03/02/2024 10:56 AM EST documented in this encounter Functional Status * [...] of Assessment Author No 07/16/2018 9:55 PM EDSummer Kothari LPN documented as of this encounter Mental Status * Because of a physical, mental, or emotional condition, do you have serious difficulty concentrating, remembering, or making decisions? (5 years old or older) Answer Entry Date Author No 07/16/2018 9:55 PM Summer Bray LPN documented in this encounter Progress Notes * Manuel Marion, DO - 03/10/2024 8:23 AM EST Subjective Galen Jack is a 78 year old male. Chief Complaint Patient presents with Follow Up HPI: Patient presents for follow-up of cellulitis of the right 5th toe. At last visit had presentedwith redness, swelling of that toe after possibly injuring himself while clipping nails. Had been getting worse over about 2 weeks. Family was concerned as does have history of diabetes. Most recent A1c 6.1. Was treated with 10 day course of Keflex 500 mg twice daily. Also given mupirocin ointment t o apply to area twice daily. States has been looking much better. Presents with daughter. Has been applying Mupirocin. Swelling and pain done. Minimal redness. Does not note any other symptoms on the foot. No fever or chills. PMH: Patient Active Problem List Diagnosis Diverticulosis of colon Type 2 diabetes mellitus with hemoglobin A1c goal of less than 8.0% ([facility]) Dyslipidemia HTN, goal below 130/80 CHARLIE inhibitor intolerance Vitamin D deficiency Type 2 diabetes mellitus with chronic kidney disease on chronic dialysis, with long-term current use of insulin (HCC) TORIN (generalized anxiety disorder) Statin myopathy Type 2 diabetes mellitus with mild nonproliferative diabetic retinopathy without macular edema, left eye ([facility]) Renal osteodystrophy CKD, patient preferred treatment modality peritoneal dialysis ESRD on dialysis (HCC) Hyperparathyroidism, secondary renal (HCC) Hypertensive kidney disease with end-stage renal disease on dialysis (HCC) Persistent atrial fibrillation (HCC) Gastroesophageal reflux disease without esophagitis Dialysis AV fistula malfunction (HCC) Current Outpatient Medications Medication Sig Dispense Refill Cholecalciferol (VITAMIN D) 1000 UNIT Capsule Take 2 Capsules by mouth in the morning. CYANOCOBALAMIN (VITAMIN B-12) 100 MCG Tablet DAILY Vitamin C 100 MG Oral Tablet Take 1 Tablet by mouth in the morning. FreeStyle Lizbeth 2 Bozeman Device Use as directed. Dx E11.9 1 Each 1 FreeStyle Lizbeth 2 Sensor Use as directed. Dx E11.9 1 Each 5 Ezetimibe 10 MG Oral Tablet (Zetia) Take 1 Tablet by mouth in the morning. 90 Tablet 3 Calcium Acetate (Phos Binder) 667 MG Oral [...] by mouth every morning 60 Tablet 5 Famotidine 20 MG Oral Tablet (Pepcid) take one tablet by mouth every other day 45 Tablet 1 Cephalexin 500 MG Oral Capsule Take 1 Capsule by mouth in the morning and 1 Capsule before bedtime.Do all this for 10 days. 20 Capsule 0 Mupirocin 2 % External Ointment (Bactroban) Apply topically to affected area 2 times a day for 10 days. To affected area for up to 14 days. 22 g 1 No current facility-administered medications for this visit. Past Medical History: Diagnosis Date Anxiety state Benign neoplasm of colon Benign neoplasm of colon 07/23/2011 COLONOSCOPY FLEXIBLE PROXIMAL DIAGNOSTIC performed by EMELI NAVARRO at ENDOSCOPY [facility],HYPERPLASTIC POLYPS REPEAT COLONOSCOPY IN 5 YEARS Diverticulosis of colon DM type 2, goal A1c below 7 Dyslipidemia, goal to be determined ESRD on dialysis ([facility]) 11/07/2020 TORIN (generalized anxiety disorder) 10/31/2017 HTN, goal below 140/90 Stage 5 chronic kidney disease not on chronic dialysis (HCC) Past Surgical History: Procedure Laterality Date CARPAL TUNNEL SURGERY Right 2000 COLONOSCOPY THRU STOMA, W/BIOPSY 2005 3 polyps COLONOSCOPY, DIAGNOSTIC (RECTUM) 07/23/2011 COLONOSCOPY FLEXIBLE PROXIMAL DIAGNOSTIC performed by EMELI NAVARRO at ENDOSCOPY [facility],HYPERPLASTIC POLYPS REPEAT COLONOSCOPY IN 5 YEARS COLONOSCOPY, DIAGNOSTIC (RECTUM) 10/19/2016 adenomatous polyp, diverticulosis, repeat 5 yrs/[facility] COLONOSCOPY, DIAGNOSTIC (RECTUM) 07/28/2018 adenomatous polyps, diverticulosis, fair prep, repeat 1 yr/[facility] COLONOSCOPY, DIAGNOSTIC (RECTUM) 06/08/2020 diverticulosis / [facility] EGD, FLEXIBLE, DIAGNOSTIC 11/28/2017 esophagitis, +H pylori / [facility] EGD, FLEXIBLE, DIAGNOSTIC 07/28/2018 duodenal erosion, gastritis, repeat 2 mo/[facility] EGD, FLEXIBLE, DIAGNOSTIC 11/03/2018 normal bx / [facility] EGD, FLEXIBLE, DIAGNOSTIC 01/11/2021 sm hiatal hernia / [facility] INFORMATION Right 2021 R arm fistula creation. INJECT DX/THER SUBSTANCE INTERLAMINAR LUMBAR/SACRAL W IMAGE GUIDE 03/01/2023 INJECTION SPINE LUMBAR OR SACRAL performed by Calvin Voss DO at OR [facility] INTRO CATH DIALYSIS CIRCUIT W/TRANSLUM BALLOON ANGIOPLASTY Right 02/22/2022 AV FISTULOGRAM & PERIPHERAL ANGIOPLASTY performed by Valdemar Nugent MD at OR [facility] REMOVE CATARACT, INSERT LENS PROSTH 2007 REPLACE,COMP,ELIU CENT ACC DEV N/A 12/31/2023 REPLACEMENT COMPLETE TUNNELED CENTRAL CATHETER NO PORT performed by Brian Long MD at OR [facility] STRESS TEST 2003 normal per pt TRANSLUMINAL BALLOON ANGIOPLASTY CENTRAL DIALYSIS SEGMENT W/IMAGING Right 02/22/2022 ANGIOPLASTY CENTRAL DIALYSIS SEGMENT performed by Valdemar Nugent MD at OR [facility] Review of patient's allergies indicates: Allergen Reactions Statins myopathy Charlie Inhibitors Januvia [Sitagliptin] Other (Please comment) lightheadedness Wound Dressing Adhesive TAPE-- SKIN TEARS Family History Problem Relation Name Age of Onset Diabetes Mother Cancer Mother breast cancer Diabetes Other on dad's side Diabetes Father Diabetes Sister No Known Problems Son Family Status Relation Status Mo Other (Not Specified) Fa Sis Alive Bro Alive MGMA MGFA PGMA PGFA Son Alive Social History Socioeconomic History Marital status: Spouse name: Not on file Number of children: 1 Years of education: Not on file Highest education level: Not on file Occupational History Not on file Tobacco Use Smoking status: Former Current packs/day: 0.00 Average packs/day: 0.8 packs/day for 50.9 years (38.2 ttl pk-yrs) Types: Cigarettes Start date: [birth year]/18/1960 Quit date: 02/15/2010 Years since quittin.0 Smokeless tobacco: Never Tobacco comments: smokes occasional cigarette with beer Vaping Use Vaping status: Never Used Substance and Sexual Activity Alcohol use: Not Currently Comment: 3-4 beers/week Drug use: No Sexual activity: Not Currently Other Topics Concern Not on file Social History Narrative Not on file Social Needs Financial Resource Strain: Low Risk (01/13/2024) Financial Resource Strain Do you have any trouble paying for your medications, or do you think you might in the future? (Adult - for ages 18 years and over): No Does your family have trouble paying for medicine? (Household - for ages 0-17 years): Not on file Food Insecurity: No Food Insecurity (01/13/2024) Food Insecurity Do you need food for this week? (Adult - for ages 18 years and over): No Are you able to get enough food for your family? (Household - for ages 0-17 years): Not on file Does your family need food this week? (Household - for ages 0-17 years): Not on file Do you always have enough food for your family? (Household - for ages 0-17 years): Not on file Transportation Needs: No Transportation Needs (01/13/2024) Transportation Needs Do you have trouble getting a ride to medical visits or work? (Adult - for ages 18 years and over):Not on file Does your family have a hard time getting a ride to doctors visits? (Household - for ages 0-17 years): Not on file Has lack of transportation kept you from medical appointments, meetings, work, or from getting things needed for daily living? Check all that apply. (Adult - for ages 18 years and over): No Do you (or your family) have trouble finding or paying for a ride (transportation)? (Household - for ages 0-17 years): Not on file Social Connections: Socially Integrated (01/13/2024) Social Connections How often do you feel lonely or isolated from those around you? (Adult - for ages 18 years and over): Never Housing Stability: Low Risk (01/13/2024) Housing Stability Do you currently live in a snf or have no steady place to sleep at night? (Adult - for ages 18 years and over): No Do you think you are at risk of becoming homeless? (Adult - for ages 18 years and over): Not on file Does your family worry about paying for your home or becoming homeless? (Household - for ages 0-17 years): Not on file Are you homeless or worried that you might be in the future? (Adult - for ages 18 years and over): No Are you (or your family) homeless or worried that you might be in the future? (Household - for ages0-17 years): Not on file Review of Systems Constitutional: Negative for chills, fatigue and fever. HENT: Negative for congestion, sore throat and trouble swallowing. Eyes: Negative for photophobia and pain. Respiratory: Negative for cough and shortness of breath. Cardiovascular: Negative for chest pain and palpitations. Gastrointestinal: Negative for abdominal distention, abdominal pain, nausea and vomiting. Genitourinary: Negative for dysuria and frequency. Musculoskeletal: Negative for back pain and neck stiffness. Skin: Negative for pallor. Neurological: Negative for dizziness, light-headedness and headaches. Psychiatric/Behavioral: Negative for sleep disturbance. The patient is not nervous/anxious. Objective BP 125/61 | Pulse 86 | Temp 95.5 F (35.3 C) | Wt 152 lb 12.8 oz (69.3 kg) | BMI 22.40 kg/m | BSA 1.84 m Physical Exam Constitutional: General: He is not in acute distress. Appearance: He is not ill-appearing. HENT: Head: Normocephalic and atraumatic. Right Ear: Tympanic membrane, ear canal and external ear normal. Left Ear: Tympanic membrane, ear canal and external ear normal. Nose: Nose normal. No congestion or rhinorrhea. Mouth/Throat: Mouth: Mucous membranes are moist. Pharynx: Oropharynx is clear. Eyes: General: No scleral icterus. Extraocular Movements: Extraocular movements intact. Conjunctiva/sclera: Conjunctivae normal. Pupils: Pupils are equal, round, and reactive to light. Neck: Vascular: No carotid bruit. Cardiovascular: Rate and Rhythm: Normal rate and regular rhythm. Pulses: Normal pulses. Heart sounds: Normal heart sounds. No murmur heard. No friction rub. No gallop. Pulmonary: Effort: Pulmonary effort is normal. Breath sounds: Normal breath sounds. No wheezing, rhonchi or rales. Abdominal: General: Bowel sounds are normal. There is no distension. Palpations: Abdomen is soft. There is no mass. Tenderness: There is no abdominal tenderness. There is no right CVA tenderness or left CVA tenderness. Musculoskeletal: General: No swelling or tenderness. Normal range of motion. Cervical back: Normal range of motion and neck supple. Right lower leg: No edema. Left lower leg: No edema. Skin: General: Skin is warm and dry. Coloration: Skin is not jaundiced. Findings: No rash. Comments: Previous redness and swelling of the right 5th toe basically resolved. No discharge. No tenderness. No further red streaking on dorsal right foot Neurological: General: No focal deficit present. Mental Status: He is oriented to person, place, and time. Cranial Nerves: No cranial nerve deficit. Sensory: No sensory deficit. Motor: No weakness. Psychiatric: Mood and Affect: Mood normal. Behavior: Behavior normal. ASSESSMENT/PLAN: Cellulitis of fifth toe of right foot (Primary) Type 2 diabetes mellitus with chronic kidney disease on chronic dialysis, with long-term current use of insulin (HCC) ESRD on dialysis (HCC) HTN, goal below 130/80 Plan: Patient presents for follow-up of cellulitis of the right 5th toe Previous infection almost completely resolve. Should complete current course of Keflex 500 mg twicedaily. Does have history type 2 diabetes but currently well managed off of medications. Last A1c 6.1 Continue other medications. Blood pressure remains well controlled on losartan 25 mg twice daily, metoprolol succinate 12.5 mg daily Continue current dialysis schedule. Follow-up Nephrology as scheduled Follow Up: Return in about 3 months (around 06/08/2024), or if symptoms worsen or fail to improve, for Follow up next routine with PCP as scheduled. | For: Follow up next routine with PCP as scheduled| Check-out note: Follow up in 3-4 months with PCP Manuel Marion DO documented in this encounter Nursing Notes * Antonia Goodrich CCMA - 03/10/2024 8:17 AM EST Pt is here today for a follow up pt stated his toe is feeling better on right foot daughter stated that her dad leaves his shoes and socks on all day long would like some advise on it documented in this encounter Plan of Treatment Upcoming Encounters Date Type Department Care Team (Late st Contact Info) Description 05/05/2024 9:00 AM EST Office Visit Trans[facility], [place] [address] [place] [address] Katie Perez MD [address] [place] [address] Samuel Schulz MD [address] [place] [address] Nurse [facility] [address] [place] [address] Dorina Vance LSW [address] [place] [address] 05/05/2024 1:00 PM EST Laboratory Outpatient Laboratory, [place] [address] [place] [id number] [place], Lab [address] [place] [address] 05/05/2024 1:30 PM EST Appointment Radiology, [address] [phone] 05/05/2024 1:45 PM EST Imaging Radiology [facility] [address] [place] [address] 06/09/2024 8:45 AM EDT Office Visit Urology, [address] [place] [address] Adolfo Tian MD [address] [place] [address] Health Maintenance Due Date Last Done Comments [...] history exists Depression Screening 01/12/2025 01/13/2024, 11/05/19 Diabetic Foot Exam 03/02/2025 03/02/2024, 0 03/19/2023, [...] as of this encounter Visit Diagnoses Diagnosis Cellulitis of fifth toe of right foot- Primary Cellulitis and abscess of toe, unspecified Type 2 diabetes mellitus with chronic kidney disease on chronic dialysis, with long-term current use of insulin (HCC) ESRD on dialysis (HCC) End stage renal disease HTN, goal below 130/80 Unspecified essential hypertension documented in this encounter Advance Directives * Full Code (Latest Code Status on File) Date Activated Date Inactivated Comments 07/17/2018 1:29 AM 07/18/2018 10:02 PM This order re flects the patients wishes and were consensually agreed upon. 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
--- OUTSIDE RECORDS SUMMARY | 2024-03-17 22:09 | External Medical Summary | Summary of Care ---
Author Name Unknown Organization [facility] Address [address] [facility] [place] [address] Phone [phone] Care Team Providers Care Court Abstractor Name Role Phone Fiona Novoa DO Primary Care Provider [phone] Reason for Visit * Reason Comments Acute Encounter Details Date Type Department Care Team (Late st Contact Info) Description 03/02/2024 11:00 AM EST Office Visit General Internal Medicine Kris Ponce [place] [address] [facility] [place] [address] Manuel Marion DO [address] [facility] [place] [address] Cellulitis of fifth toe of right foot*; Type 2 diabetes mellitus with chronic kidney disease on chronic dialysis, with long-term current use of insulin (HCC); Avulsion of toenail, initial encounter Allergies Active Allergy Reactions Criticality Noted Date Comments Charlie Inhibitors 11/06/2018 Sitagliptin Other (Please comment) 02/22/2015 lightheadedness Statins High 11/06/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 Wound Dressing Adhesive 11/12/2023 TAPE-- SKIN TEARS documented as of this encounter (statuses as of 03/02/2024) Medications Cholecalciferol (VITAMIN D) 1000 UNIT Capsule Take 2 Capsules by mouth in the morning. 5 Active CYANOCOBALAMIN (VITAMIN B-12) 100 MCG Tablet DAILY 9 Active Vitamin C 100 MG Oral Tablet Take 1 Tablet by mouth in the morning. 2 Active FreeStyle Lizbeth 2 [place] DeviceIndications: Type 2 diabetes mellitus with hemoglobin A1c goal of less than 8.0% ([facility]) Use as directed. Dx E11.9 1 Each 1 3 Active FreeStyle Lizbeth 2 SensorIndications: Type 2 diabetes mellitus with hemoglobin A1c goal of less than 8.0% (HCC) Use as directed. Dx E11.9 1 Each 5 3 Active Ezetimibe 10 MG Oral Tablet (Zetia)Indications :Mixed hyperlipidemia Take 1 Tablet by mouth in the morning. 90 Tablet 3 01/16/2024 10:40 AM EDT 4 Active Famotidine 20 MG Oral Tablet (Pepcid) take one tablet by mouth every other day 45 Tablet 1 12/06/2023 3:44 PM EDT 4 Active Calcium Acetate (Phos Binder) [...] 5 02/17/2024 2:58 PM EST 4 Active Cephalexin 500 MG Oral CapsuleIndications :Cellulitis of fifth toe of right foot,Avulsion of toenail, initial encounter Take 1 Capsule by mouth in the morning and 1 Capsule before bedtime. Do all this for 10 days. 20 Capsule 4 03/12/20 24 Active Mupirocin 2 % External Ointment (Bactroban)Indicat ions:Cellulitis of fifth toe of right foot Apply topically to affected area 2 times a day for 10 days. To affected area for up to 14 days. 22 g 1 4 03/16/20 24 Active documented as of this encounter (statuses as of 03/02/2024) Active Problems Problem Noted Date Diagnosed Date [...] as of this encounter (statuses as of 03/02/2024) Resolved Problems Problem Noted Date Diagnosed Date [...] as of this encounter (statuses as of 03/02/2024) Immunizations Name Administration Dates Next Due COVID-19 mRNA, LNP-s, No Pre serve, 2-Dose Series ([employer]) 02/14/2021,06/30/2020,06/09/2020 Covid-19, Mrna, Lnp-s, Pf, B ivalent, [...] Recorded PHQ Adult Total Score 0 01/13/2024 [facility] - Occupational [...] No 01/13/2024 Does the household have a [facility] source of income? (Household - for [...] Sign Reading Time Taken Comments Blood Pressure 148/74 03/02/2024 10:56 AM EST Pulse - - Temperature 36.2 C (97.1 F) 03/02/2024 10:[address] Respiratory Rate - - Oxygen Saturation - - Inhaled Oxygen Concentration - - Weight 69.6 kg (153 lb 6.4 oz) 03/02/2024 10:56 AM EST Height 175.9 cm (5' 9.25") 03/02/2024 10:[address] Body Mass Index 22.49 03/02/2024 10:56 AM EST documented in this [...] of Assessment Author Yes 02/21/2021 10:15 AM Summer Reyes ch, LPN * Do you have difficulty dressing or bathing? (5 years old or older) Answer Date of Assessment Author No 07/16/2018 9:55 PM YANIQUET Summer Greenfield LPN * Because of a [...] Summer Bray LPN documented in this encounter Patient Instructions * Patient Instructions* Yanni Villela, ACCOUNT INSTALLER - 03/02/2024 10:49 AM EST Diabetes: Keeping Feet Healthy Inspect your feet every day for signs of a problem. Diabetes can damage nerves in your feet and cause neuropathy. This condition makes it hard for you to feel injuries or sore spots. Diabetes can also change blood flow, making it harder for small problems, like a blister, to heal properly. In fact, minor injuries can quickly become serious infections that send you to the hospital. Practice self-care to protect your feet and keep them healthy. Take Special Care Inspect your feet daily for problems such as redness, blisters, cracks, dry skin, or numbness. Use a mirror to see the bottoms of your feet. Or, ask for help. Manage your diabetes. Monitor and control your blood sugar. Take all your medications as prescribed. Avoid walking barefoot, even indoors. Wash your feet with warm water and mild soap. Dry well, especially between toes. Dont treat corns or calluses yourself. Talk to your doctor or chief recordist (a doctor who specializes in foot care) if you need assistance trimming your toenails. Use moisturizing cream or lotion if you have dry skin, but dont use it between toes. Dont use heating pads on your feet. If you have neuropathy, you could get a burn and not feel it. Stop smoking. Smoking restricts blood flow and can make it harder for wounds to heal. Have Regular Checkups Foot problems can develop quickly. So be sure to follow your healthcare teams schedule for regular checkups. During office visits, take off your shoes and socks as soon as you get in the exam room. Ask your healthcare provider to examine your feet for problems. This will make it easier to find and treat small skin irritations before they get worse. Regular checkups can also help keep track of the blood flow and feeling in your feet. If you have neuropathy, you may need to have checkups more often. Wear Proper Footwear Wearing proper footwear is very important. If areas of your feet have been damaged by too much pressure, your healthcare provider may recommend changing your footwear. In some cases, avoiding high heels or tight work boots may be all thats needed. Or, your healthcare provider may recommend special shoes or custom inserts. These help protect your feet and keep existing irritations from getting worse. If you need special footwear, ask your healthcare provider if you qualify for [employer] diabetic shoe program. Make Sure Shoes and Socks Fit Any pair of shoes--new or old--should feel comfortable as soon as you put them on. There shouldnt be any rubbing when you walk. Wear the right shoe for any activity. For instance, a running shoe is designed to keep your feet injury-free while jogging. Buy shoes at the end of the day, when your feet are larger. Make sure they provide support without feeling too loose. Make sure your socks fit, t oo. Wear soft, seamless, well-padded socks for activity. Cotton or microfiber socks are best to help to absorb sweat. To protect your feet, avoid shoes that are open-toed or open-heeled. If you have questions about what kinds of shoes and socks are best, talk to your healthcare team. Get Regular Exercise Regular exercise improves blood flow in your feet. It also increases foot strength and flexibility.Gentle exercises, like walking or riding a stationary bicycle, are best. You can also do special foot exercises. Just be sure to talk with your healthcare provider before starting any exercise program. Also mention if any exercise causes pain, redness, or other signs of foot problems. Note: If you have any kind of break in the skin of your foot or ankle, keep the area clean. Then call your doctor--especially if the area doesnt appear to be healing. [phone] [employer], [address] [place] [address], [place] [address]. All rights reserved. This information is not intended as a substitute for professional medical care. Always follow your healthcare professional's instructions. Diabetes: Keeping Feet Healthy Inspect your feet every day for signs of a problem. Diabetes can damage nerves in your feet and cause neuropathy. This condition makes it hard for you to feel injuries or sore spots. Diabetes can also change blood flow, making it harder for small problems, like a blister, to heal properly. In fact, minor injuries can quickly become serious infections that send you to the hospital. Practice self-care to protect your feet and keep them healthy. Take Special Care Inspect your feet daily for problems such as redness, blisters, cracks, dry skin, or numbness. Use a mirror to see the bottoms of your feet. Or, ask for help. Manage your diabetes. Monitor and control your blood sugar. Take all your medications as prescribed. Avoid walking barefoot, even indoors. Wash your feet with warm water and mild soap. Dry well, especially between toes. Dont treat corns or calluses yourself. Talk to your doctor or chief recordist (a doctor who specializes in foot care) if you need assistance trimming your toenails. Use moisturizing cream or lotion if you have dry skin, but dont use it between toes. Dont use heating pads on your feet. If you have neuropathy, you could get a burn and not feel it. Stop smoking. Smoking restricts blood flow and can make it harder for wounds to heal. Have Regular Checkups Foot problems can develop quickly. So be sure to follow your healthcare teams schedule for regular checkups. During office visits, take off your shoes and socks as soon as you get in the exam room. Ask your healthcare provider to examine your feet for problems. This will make it easier to find and treat small skin irritations before they get worse. Regular checkups can also help keep track of the blood flow and feeling in your feet. If you have neuropathy, you may need to have checkups more often. Wear Proper Footwear Wearing proper footwear is very important. If areas of your feet have been damaged by too much pressure, your healthcare provider may recommend changing your footwear. In some cases, avoiding high heels or tight work boots may be all thats needed. Or, your healthcare provider may recommend special shoes or custom inserts. These help protect your feet and keep existing irritations from getting worse. If you need special footwear, ask your healthcare provider if you qualify for [employer] diabetic shoe program. Make Sure Shoes and Socks Fit Any pair of shoes--new or old--should feel comfortable as soon as you put them on. There shouldnt be any rubbing when you walk. Wear the right shoe for any activity. For instance, a running shoe is designed to keep your feet injury-free while jogging. Buy shoes at the end of the day, when your feet are larger. Make sure they provide support without feeling too loose. Make sure your socks fit, t oo. Wear soft, seamless, well-padded socks for activity. Cotton or microfiber socks are best to help to absorb sweat. To protect your feet, avoid shoes that are open-toed or open-heeled. If you have questions about what kinds of shoes and socks are best, talk to your healthcare team. Get Regular Exercise Regular exercise improves blood flow in your feet. It also increases foot strength and flexibility.Gentle exercises, like walking or riding a stationary bicycle, are best. You can also do special foot exercises. Just be sure to talk with your healthcare provider before starting any exercise program. Also mention if any exercise causes pain, redness, or other signs of foot problems. Note: If you have any kind of break in the skin of your foot or ankle, keep the area clean. Then call your doctor--especially if the area doesnt appear to be healing. [id number] [employer], [address] [place] [address], [place] [address]. All rights reserved. This information is not intended as a substitute for professional medical care. Always follow your healthcare professional's instructions. documented in this encounter Progress Notes * Manuel Marion, DO - 03/02/2024 11:03 AM EST Subjective Galen Jack is a 78 year old male. Chief Complaint Patient presents with Acute Text in this note was generated using an [employer] documentation service. I discussed the use of a device to record and summarize our discussion today. All persons present during the encounter consented to its use. HPI: History of Present Illness The patient, with a history of diabetes - off medications/A1c 6.1 in Oct 2023, presents with a toe injury that occurred approximately 2 weeks ago. Patient/son state he was clipping his nails when mayhave gone to deep on the right little toe. Actually seems to have pulled off his toenail. Patient unsure if as ever seen Podiatry in the past a clip nails. States little toe has been red and swollen.Some pain. Also notes some redness on dorsal right foot. Son also believes may have cut himself on the right 4th toe. No obvious drainage from the area. They have been trying to keep nailbed covered.Does not have any history of prior amputation. Also dialysis patient for ESRD. Dialysis unit recommended follow-up in the office to have toe checked. PMH: Patient Active Problem List Diagnosis Diverticulosis of colon Type 2 diabetes mellitus with hemoglobin A1c goal of less than 8.0% (HCC) Dyslipidemia HTN, goal below 130/80 CHARLIE inhibitor intolerance Vitamin D deficiency Type 2 diabetes mellitus with chronic kidney disease on chronic dialysis, with long-term current use of insulin (HCC) TORIN (generalized anxiety disorder) Statin myopathy Type 2 diabetes mellitus with mild nonproliferative diabetic retinopathy without macular edema, left eye (HCC) Renal osteodystrophy CKD, patient preferred treatment modality [...] 1 Tablet by mouth in the morning. [employer] Lizbeth 2 [place] Device Use as directed. Dx E11.9 1 [...] DIAGNOSTIC performed by EMELI NAVARRO at [facility],HYPERPLASTIC POLYPS REPEAT COLONOSCOPY IN 5 YEARS Diverticulosis of colon DM type 2, goal A1c below 7 Dyslipidemia, goal to be determined ESRD on dialysis (HCC) 11/07/2020 TORIN (generalized anxiety disorder) 10/31/2017 HTN, goal below 140/90 Stage 5 chronic kidney disease not on chronic dialysis (HCC) Past Surgical History: Procedure Laterality Date CARPAL TUNNEL SURGERY Right 1999 COLONOSCOPY THRU STOMA, W/BIOPSY 2005 3 polyps COLONOSCOPY, DIAGNOSTIC (RECTUM) 07/23/2011 COLONOSCOPY FLEXIBLE PROXIMAL DIAGNOSTIC performed by EMELI NAVARRO at [facility],HYPERPLASTIC POLYPS REPEAT COLONOSCOPY IN 5 YEARS COLONOSCOPY, DIAGNOSTIC (RECTUM) 10/19/2016 adenomatous polyp, diverticulosis, repeat 5 yrs/[facility] COLONOSCOPY, DIAGNOSTIC (RECTUM) 07/28/2018 adenomatous polyps, diverticulosis, fair prep, repeat 1 yr/[facility] COLONOSCOPY, DIAGNOSTIC (RECTUM) 06/08/2020 diverticulosis / [facility] EGD, FLEXIBLE, DIAGNOSTIC 11/28/2017 esophagitis, +H pylori / [facility] EGD, FLEXIBLE, DIAGNOSTIC 07/28/2018 duodenal erosion, gastritis, repeat 2 mo/[facility] EGD, FLEXIBLE, DIAGNOSTIC 11/03/2018 normal bx / [facility] EGD, FLEXIBLE, DIAGNOSTIC 01/11/2021 sm hiatal hernia / [facility] INFORMATION Right 2021 R arm fistula creation. INJECT DX/THER SUBSTANCE INTERLAMINAR LUMBAR/SACRAL W IMAGE GUIDE 03/01/2023 INJECTION SPINE LUMBAR OR SACRAL performed by Calvin Voss DO at OR [facility] INTRO CATH DIALYSIS CIRCUIT W/TRANSLUM BALLOON ANGIOPLASTY Right 02/22/2022 AV FISTULOGRAM & PERIPHERAL ANGIOPLASTY performed by Valdemar Nugent MD at OR [facility] REMOVE CATARACT, INSERT LENS PROSTH 2007 REPLACE,COMP,ELIU CENT ACC DEV N/A 12/31/2023 REPLACEMENT COMPLETE TUNNELED CENTRAL CATHETER NO PORT performed by Brian Long MD at [facility] 2003 normal per pt TRANSLUMINAL BALLOON ANGIOPLASTY CENTRAL DIALYSIS SEGMENT W/IMAGING Right 02/22/2022 ANGIOPLASTY CENTRAL DIALYSIS SEGMENT performed by Valdemar Nugent MD at OR [facility] Review of patient's allergies indicates: Allergen Reactions [...] Stability Do you currently live in a chcf or have no steady place to sleep [...] Genitourinary: Negative for dysuria and frequency. Musculoskeletal: Positive for joint swelling. Negative for back pain and neck stiffness. Skin: Positive for color change and rash. Negative for pallor. Neurological: Negative for dizziness, light-headedness and headaches. Psychiatric/Behavioral: Negative for sleep disturbance. The patient is not nervous/anxious. Objective BP 148/74 (BP Site: Left Arm, BP Position: Sitting, BP Cuff Size: Regular) | Temp 97.1 F (36.2 C) (Tympanic) | Ht 5' 9.25" (1.759 m) | Wt 153 lb 6.4 oz (69.6 kg) | BMI 22.49 kg/m | BSA 1.84 m Physical Exam [...] dry. Coloration: Skin is not jaundiced. Findings: Erythema and rash present. Comments: On examination of the right foot, the toenail of the right 5th toe has been avulsed. Completely removed. Nailbed intact. The toe is slightly swollen and red. No warmth or tenderness. There is some slight red streaking in the right foot. Range of motion in the foot intact. Neurological: General: No focal deficit present. Mental Status: He is oriented to person, place, and time. Cranial Nerves: No cranial nerve deficit. Sensory: No sensory deficit. Motor: No weakness. Psychiatric: Mood and Affect: Mood normal. Behavior: Behavior normal. ASSESSMENT/PLAN: Cellulitis of fifth toe of right foot (Primary) - Cephalexin 500 MG Oral Capsule; Take 1 Capsule by mouth in the morning and 1 Capsule before bedtime. Do all this for 10 days. - Mupirocin 2 % External Ointment (Bactroban); Apply topically to affected area 2 times a day for 10 days. To affected area for up to 14 days. Type 2 diabetes mellitus with chronic kidney disease on chronic dialysis, with long-term current use of insulin (HCC) - DIABETES FOOT EXAM Avulsion of toenail, initial encounter - Cephalexin 500 MG Oral Capsule; Take 1 Capsule by mouth in the morning and 1 Capsule before bedtime. Do all this for 10 days. Plan: Assessment & Plan Toe Injury - Cellulitis right little toe due to clipping Trauma to the toe with nail avulsion and minor laceration. No signs of infection. Discussed the importance of wound care and monitoring for signs of infection, especially given the patient's history of diabetes. -Apply mupirocin 2% antibiotic ointment twice daily to left nailbed times 10 days. Cover area with Band-Aid -Take Keflex 500mg (prescribed) twice daily for 10 days. -Schedule follow-up appointment to assess healing progress. -counseled patient that would be good idea to have podiatry referral in the future for nail clipping to avoid injury Diabetes Well-controlled, but discussed the potential for impaired wound healing and decreased sensation leading to unnoticed injuries. -Continue current management and monitor for signs of infection in the injured toe. Follow Up: Return in about 1 week (around 03/09/2024), or if symptoms worsen or fail to improve, for Return with Physician. | For: Return with Physician | Check-out note: Follow up 7-10 days for recheck Manuel Marion DO * Yanni Villela CMA - 03/02/2024 11:01 AM EST Socks and Shoes Removed for Annual Diabetic Foot Screening RIGHT FOOT: Area of Concern: pinky toe and third toe . RIGHT Dorsalis Pedis Pulse: Palpable RIGHT Posterior Tibial Pulse: Palpable RIGHT Monofilament:Patient reports feeling monofilament pressure on plantar surface of foot LEFT FOOT: No Reddened, Cracking or Open Areas Noted. LEFT Dorsalis Pedis Pulse: Palpable LEFT Posterior Tibial Pulse: Palpable LEFT Monofilament:Patient reports feeling monofilament pressure on plantar surface of foot Do you need diabetic shoes: No documented in this encounter Nursing Notes * Yanni Villela CMA - 03/02/2024 10:52 AM EST Patient presents today with complaints of possible infected wound on toe. He states that he was trimming his toenails about a week or so ago and it now looks infected. The affected toe is his left pinky toe. It does appear to be dark red and swollen, he has some redness up his foot as well. He denies any drainage from the area. It is sore and tender to touch. Upon undressing his toe, patient pulled the toenail almost completely off of the skin. documented in this encounter Plan of Treatment Upcoming Encounters Date Type Department Care Team (Late st Contact Info) Description 03/03/2024 11:00 AM EST Office Visit Transplant Clinic, [place] [address] [place] [address] Narcisa Jones MD [address] [place] [id number] Samuel Schulz MD [address] [place] [address] Nurse Bryanna [facility] [address] [place], [place] [id number] Yolanda Noonan, SATELLITE MANAGER [address] [place] [address] 03/03/2024 3:00 PM EST Laboratory Outpatient Laboratory, [place] [address] [place] [id number] [facility] [address] [place], [place] [id number] 03/10/2024 8:20 AM EST Office Visit General Internal Medicine [facility] [address] [facility] [place] [address] Manuel Marion, [address] [facility] [place] [address] 06/09/2024 8:45 AM EDT Office Visit Urology, [facility] [address] [facility] [place] [address] Adolfo Tian MD [address] [place] [id number] [...] with long-term current use of insulin (HCC) Avulsion of toenail, initial encounter documented in this encounter Advance Directives * Full Code (Latest Code Status on File) Date Activated Date Inactivated Comments 07/17/2018 1:29 AM 07/18/2018 10:02 PM This order re flects the patients wishes and were consensually agreed upon. Question Answer Comments Discussion of Advance Directives occurred with: Patient Care Teams Court Abstractor Relationship Specialty Start Date End Date Fiona Novoa DO [address] [place] [id number] PCP - General Family Medicine 10/04/15 documented as of this encounter
--- OUTSIDE RECORDS SUMMARY | 2024-03-17 22:10 | External Medical Summary ---
Author Name Unknown Address Unknown Organization : Laboratory Report Ordering Provider Test Date Status SANCHEZ LOWERY 01/27/2024 05:20:00 Final Observation Date Value Abnormality Reference (Units ) Status REFERENCE LAB SCANNED REPORT 01/27/2024 05:20:00 See Scanned Report Final Performing Location
--- OUTSIDE RECORDS SUMMARY | 2024-03-17 22:10 | External Medical Summary | Summary of Care ---
Author Name Unknown Organization [facility] [address] [facility] [address] Phone [phone] Care Team Providers Care Environmental Engineering Manager Name Role Phone Fiona Novoa DO Primary Care Provider [phone] Reason for Visit * Reason Comments eRx-Medication Refill Encounter Details Date Type Department Care Team (Late st Contact Info) Description 01/13/2024 Refill Nephrology, Kris Luxora [address] [place] [address] Victor Hugo Lanier MD [address] [place] [address] Allergies Active Allergy Reactions Criticality Noted Date Comments Charlie Inhibitors 11/06/2018 Sitagliptin Other (Please comment) 02/22/2015 lightheadedness Statins High 11/06/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 Wound Dressing Adhesive 11/12/2023 TAPE-- SKIN TEARS documented as of this encounter (statuses as of 01/14/2024) Medications Medication Sig Dispensed Refills Start Date End Date Status Cholecalciferol (VITAMIN D) 1000 UNIT Capsule Take 2 Capsules by mouth in the morning. 5 Active CYANOCOBALAMIN (VITAMIN B-12) 100 MCG Tablet DAILY 9 Active Vitamin C 100 MG Oral Tablet Take 1 Tablet by mouth in the morning. 2 Active OneTouch Verio In Vitro Strip (Glucose Blood)Indications:T ype 2 diabetes mellitus with hemoglobin A1c goal of less than 7.0% (HCC) USE TO TEST BLOOD SUGAR UP TO 4 TIMES DAILY 300 Strip 3 3 02/23/20 24 Active FreeStyle Lizbeth 2 [place] DeviceIndications:T ype 2 diabetes mellitus with hemoglobin A1c goal of less than 8.0% ([facility]) Use as directed. Dx E11.9 1 Each 1 3 Active Additional Information Patient not taking.Reported on 11/05/2023 FreeStyle Lizbeth 2 SensorIndications:T ype 2 diabetes mellitus with hemoglobin A1c goal of less than 8.0% ([facility]) Use as directed. Dx E11.9 1 Each 5 3 Active Additional Information Patient not taking.Reported on 11/05/2023 Ezetimibe 10 MG Oral Tablet (Zetia)Indications: Mixed hyperlipidemia Take 1 Tablet by mouth in the morning. 90 Tablet 3 4 Active Famotidine 20 MG Oral Tablet (Pepcid) take one tablet by mouth every other day 45 Tablet 1 4 Active Calcium Acetate (Phos Binder) 667 MG Oral Capsule (Phoslo) take 1 capsule by mouth with meals and 1 capsule with snacks 450 Capsule 6 4 Active Losartan Potassium 25 MG Oral Tablet (Cozaar) take 2 tablets by mouth daily in the morning 60 Tablet 3 4 Active Metoprolol Succinate ER 25 MG Oral Tablet Extended Release 24 Hour (toPROL XL) Take 1/2 tablet by mouth after dialysis on Saturday, Saturday and Saturday 4 Active Metoprolol Succinate ER 25 MG Oral Tablet Extended Release 24 Hour (toPROL XL) Take 1/2 tablet by mouth after dialysis on Saturday, Saturday and Saturday 15 Tablet 4 01/14/20 24 Discontinued documented as of this encounter (statuses as of 01/14/2024) Active Problems Problem Noted Date Diagnosed Date [...] intolerance 05/09/2012 HTN, goal below 130/80 04/13/2009 Overview: Modified per HTN Taxonomy. Dyslipidemia 02/22/2009 Overview: Per Lipid Taxonomy. Type 2 diabetes mellitus wit h hemoglobin A1c goal of less than 8.0% 01/13/2009 Overview: Per Diabetes Taxonomy. ICD-10 update of inactive term Diverticulosis of colon 05/12/2008 documented as of this encounter (statuses as of 01/14/2024) Resolved Problems Problem Noted Date Diagnosed Date Resolved Date Disorder of parathyroid gland 04/03/2023 04/03/2023 Food insecurity 10/24/2020 03/02/2021 Overview: Per [facility] Protocol DM type 2 nursing care encounter 03/16/2020 07/04/2023 Overview: duplicate History of anemia 09/17/2019 11/07/2020 History of gastrointestinal hemorrhage 11/06/2018 07/23/2019 Overview: Historical. Leg weakness, bilateral 07/17/201810/17 Hypertensive kidney [...] Protocol #27. HTN, GOAL BELOW 140/90 01/21/200904/13 Overview: Modified per HTN Taxonomy. Anemia 08/11/2008 11/07/2020 Type 2 diabetes mellitus wit h hemoglobin A1c goal of less than 7.0% 05/12/2008 01/13/2009 Overview: Per Diabetes Taxonomy. ICD-10 update of inactive term HTN, goal below 140/90 05/12/200801/21 Overview: Modified per HTN Taxonomy. Mixed dyslipidemia 05/12/2008 Overview: Per Lipid Taxonomy. Anxiety state 05/12/2008 10/31/2017 High potassium 09/17/2019 documented as of this encounter (statuses as of 01/14/2024) Immunizations Name Administration Dates Next Due COVID-19 [...] Date Recorded PHQ Adult Total Score 0 04/24/2022 [facility] - Occupational Stress Questionnaire Answer [...] 01/13/2024 Does the household have a re gular source of income? (Household - for ages [...] Recorded Sex Assigned at Not on file Gender Identity Not on file Sexual Orientation Not on file Job Start Date Occupation Industry Not on file Not on file Not on file documented as of this encounter Functional Status Functional Status Response Date of Assess ment Are you deaf or do you have serious difficulty h earing? No 07/16/2018 Are you blind or do you have serious difficulty seeing, even when wearing glasses? No 07/16/2018 Does this person have seriou s difficulty walking or climbing stairs? Yes 02/21/2021 Do you have difficulty dress ing or bathing? (5 years old or older) No 07/16/2018 Because of a physical, menta l, or emotional condition, do you have difficulty doing errands alone such as visiting a doctor s office or shopping? (15 years old or older) No 07/17/19 19 Cognitive Status Response Date of Assessm ent Because of a physical, menta l, or emotional condition, do you have serious difficulty concentrating, remembering, or making decisions? (5 years old or older) No 07/16/2018 documented as of this encounter Miscellaneous Notes * Telephone Encounter - Carmina Hall RN - 01/14/2024 9:02 AM EDTSigned Prescriptions: Disp Refills Metoprolol Succinate ER 25 MG Oral Tablet * Sig: Take 1/2 tablet by mouth after dialysis on Saturday, Saturday and SaturdayAuthorizing Provider: VICTOR HUGO LANIER User: CARMINA HALL * Telephone Encounter - Carmina Hall RN - 01/14/2024 9:00 AM EDT RX faxed to [facility]. documented in this encounter Plan of Treatment Upcoming Encounters Date Type Department Care Team (Late st Contact Info) Description 03/03/2024 11:00 AM EST Office Visit Trans[facility], [place] [address], [place] [id number] Narcisa Jones MD [address] [place] [address] Samuel Schulz MD [address] [place], [place] [id number] Nurse [facility] [address], [place] [id number] Yolanda Noonan LSW [address] [place] [address] 03/03/2024 3:00 PM EST Laboratory Outpatient Laboratory, [place] [address] [place] [address] [place] [address] [place] [address] 06/09/2024 8:45 AM EDT Office Visit Urology, [facility] [address] [facility] [place] [address] Adolfo Tian MD [address] [place] [address] Health Maintenance Due Date Last Done [...] Advance Directives occurred with: Patient Care Teams Environmental Engineering Manager Relationship Specialty Start Date End Date Fiona Novoa DO [address] [place] [id number] PCP - General Family Medicine 10/04/15 documented as of this encounter
--- OUTSIDE RECORDS SUMMARY | 2024-03-17 22:10 | External Medical Summary | Summary of Care ---
Author Name Unknown Organization [facility] Address [address] [place] [address] Phone [phone] Care Team Providers Care Tubing Assembler Name Role Phone KaydenFiona mooney Primary Care Provider [phone] Reason for Visit * Auth/Cert Specialty Diagnoses / Procedures Referred By Contac t Referred To Contact Diagnoses ESRD (end stage renal disease) on dialysis (HCC) ESRD (end stage renal disease) on dialysis (HCC) [N18.6, Z99.2] Procedures REPLACE,COMP,ELIU CENT ACC DEV REPLACEMENT COMPLETE TUNNELED CENTRAL CATHETER NO PORT Brian Long MD [address] [place] [address] Or [facility] [address] [place] [address] Referral ID Status Reason Start Date Expiration Date Visits Re quested Visits Authorized [id number] Encounter Details Date Type Department Care Team (Latest Contact Info) Description 12/31/2023 8:40 AM EDT - 12/31/2023 12:59 PM EDT Hospital Encounter [facility] [address] [place] [address] Brian Long MD [address] [place] [address] Discharge Disposition: Home - Self Care Allergies Active Allergy Reactions Criticality Noted Date Comments Charlie Inhibitors 11/06/2018 Sitagliptin Other (Please comment) 02/22/2015 lightheadedness Statins High 11/06/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 Wound Dressing Adhesive 11/12/2023 TAPE-- SKIN TEARS documented as of this encounter (statuses as of 01/01/2024) Medications Medication Sig Dispensed Refills Start Date End Date Status Cholecalciferol (VITAMIN D) 1000 UNIT Capsule Take 2 Capsules by mouth in the morning. 09/09/2014 Active CYANOCOBALAMIN (VITAMIN B-12) 100 MCG Tablet DAILY 10/27/2018 Active Vitamin C 100 MG Oral Tablet Take 1 Tablet by mouth in the morning. 06/29/2021 Active OneTouch Verio In Vitro Strip (Glucose Blood)Indications:Ty pe 2 diabetes mellitus with hemoglobin A1c goal of less than 7.0% (HCC) USE TO TEST BLOOD SUGAR UP TO 4 TIMES DAILY 300 Strip 3 01/06/2023 4 Active OneTouch Delica Plus [id number] USE UP TO 4 TIMES A DAY 100 Each 5 01/06/2023 4 Active FreeStyle Lizbeth 2 Highland DeviceIndications:Ty pe 2 diabetes mellitus with hemoglobin A1c goal of less than 8.0% (HCC) Use as directed. Dx E11.9 1 Each 1 01/14/2023 Active Additional Information Patient not taking.Reported on 11/05/2023 FreeStyle Lizbeth 2 SensorIndications:Ty pe 2 diabetes mellitus with hemoglobin A1c goal of less than 8.0% (HCC) Use as directed. Dx E11.9 1 Each 5 01/14/2023 Active Additional Information Patient not taking.Reported on 11/05/2023 Ezetimibe 10 MG Oral Tablet (Zetia)Indications:M ixed hyperlipidemia Take 1 Tablet by mouth in the morning. 90 Tablet 3 07/01/2023 Active Famotidine 20 MG Oral Tablet (Pepcid) take one tablet by mouth every other day 45 Tablet 1 08/30/2023 Active Calcium Acetate (Phos Binder) 667 MG Oral Capsule (Phoslo) take 1 capsule by mouth with meals and 1 capsule with snacks 450 Capsule 6 08/30/2023 Active Losartan Potassium 25 MG Oral Tablet (Cozaar) take 2 tablets by mouth daily in the morning 60 Tablet 3 10/11/2023 Active Metoprolol Succinate ER 25 MG Oral Tablet Extended Release 24 Hour (toPROL XL) Take 1/2 tablet by mouth after dialysis on Saturday, Saturday and Saturday 15 Tablet 11/26/2023 Active documented as of this encounter (statuses as of 01/01/2024) Active Problems Problem Noted Date Diagnosed Date [...] as of this encounter (statuses as of 01/01/2024) Resolved Problems Problem Noted Date Diagnosed Date [...] as of this encounter (statuses as of 01/01/2024) Immunizations Name Administration Dates Next Due COVID-19 mRNA, LNP-s, No Pre serve, 2-Dose Series ([employer]) 02/14/2021,06/30/2020,06/09/2020 Covid-19, Mrna, Lnp-s, Pf, B ivalent, [...] Recorded PHQ Adult Total Score 0 04/24/2022 [facility] - Occupational Stress Questionnaire Answer Date Recorded [...] you got the money to buy more. Sometimes true Ran Out of Food in the Last Year Not on file 09/27/2020 Sex and Gender Information Value Date Recorded Sex Assigned at Not on file Gender Identity Not on file Sexual Orientation Not on file Job Start Date Occupation Industry Not on file Not on file Not on file documented as of this encounter Last Filed Vital Signs Vital Sign Reading Time Taken Comments Blood Pressure 193/84 12/31/2023 12:33 PM EDT Pulse 71 12/31/2023 12:33 PM EDT Temperature 36 C (96.8 F) 12/31/2023 12: 33 PM EDT Respiratory Rate 16 12/31/2023 12:3 3 PM EDT Oxygen Saturation 100% 12/31/2023 12: 33 PM EDT Inhaled Oxygen Concentration - - Weight 71.1 kg (156 lb 12.8 oz) 12/31/2023 8:45 AM EDT Height 175.9 cm (5' 9.25") 12/31/2023 8:45 AM ED T Body Mass Index 22.99 12/31/2023 8:45 AM EDT documented in this encounter Functional Status Functional Status Response [...] No 07/16/2018 documented as of this encounter Discharge Summaries * Magno Resendiz MD - 12/31/2023 12:01 PM EDT [facility] [address] [facility] [address] OUTPATIENT SURGERY DISCHARGE SUMMARY NOTE Name: Galen Jack [place] [facility] [place] Date: 12/31/2023 Time: 12:02 PM Date and Time of Procedure: 12/31/2023 at 12:02 PM Surgery Date: 12/31/2023 Procedure(s): REPLACEMENT COMPLETE TUNNELED CENTRAL CATHETER NO PORT Surgeon: Brian Long MD Discharge Diagnosis: malfunctioning tunneled HD catheter After examination of this patient, I have determined he is ready for discharge to home when the patient meets criteria. Discharge instructions were given to the patient. Magno Resendiz MD Vascular Surgery Fellow 12/31/2023 12:02 PM documented in this encounter Discharge Instructions * Discharge Instr - AVS* Magno Resendiz MD - 12/31/2023 12:01 PM EDT Discharge Date: 12/31/2023 You may call Brian Long MD of the department of Vascular Surgery at the [facility] [place] [phone] option 2. After business hours, you may call with emergency questions to [phone] and ask that the on-call Vascular Surgery provider be paged. The information below provides you with the instructions and the list of medications you need to betaking following discharge from the hospital. If you have any questions, please ask before leaving.Please carry this letter with you when you see your doctor in the clinic. If you have questions, you can reach us at the numbers above. Brief summary of your inpatient care: tunneled HD catheter exchange Your primary diagnosis at discharge was malfunctioning tunneled HD line. Your doctors during this hospitalization included: Brian Long MD Inpatient test results pending: None Complications: none applicable Advance Directive Documented: Advance Directive Does the Patient have an Advance Directive? No SUPPLEMENTAL INSTRUCTIONS: Discharge Instructions: Caring for Your Dialysis Catheter You are going home with a dialysis catheter, which is a small, soft tube that is placed in a vein that leads to your heart. At home, you need to take care of your central line to keep it working and avoid infection. This sheet will help you remember what to do at home. Protecting the central line If the central line gets damaged, it won't work right and could raise your chance of infection. Call your healthcare team right away if any damage occurs. To protect the central line at home Prevent infection. Use good hand hygiene. Don't touch the catheter or dressing unless you need to. And always clean your hands before and after you come in contact with any part of the central line. Your caregivers, family members, and any visitors should use good hand hygiene, too. Keep the central line dry. The catheter and dressing must stay dry. Don't take baths, go swimming, use a hot tub, or do other activities that could get the central line wet. Take a sponge bath to avoid getting the central line wet, unless your dialysis team tells you otherwise. Ask your dialysis team about the best way to keep the line dry when bathing or showering. If the dressing does get wet, call your healthcare team right away. Don't damage the catheter. Don't use any sharp or pointy objects around the catheter. This includesscissors, pins, knives, razors, or anything else that could cut it or put a hole in it (puncture it). Also, don't let anything pull or rub on the catheter, such as clothing. Watch for signs of problems. Pay attention to how much of the catheter sticks out from your skin. If this changes at all, let your healthcare provider know. Also watch for cracks, leaks, or other damage. If the dressing becomes dirty, loose, or wet, contact your dialysis team right away. Also call right away if you have increasing pain, swelling, redness, or bleeding from the area. Call your dialysis team right away if you have any of the following: Pain, burning, or swelling around the catheter or your arm Fever or chills Signs of infection at the catheter site (pain, redness, drainage, burning, or stinging) The catheter falls out, breaks, cracks, leaks, or has other damage See your primary care physician (Fiona Novoa DO) as scheduled. For routine questions, your [facility] Vascular Surgery Team prefers the use of InferX. InferX is an online internet tool to help you meet your health care needs quickly by providing a secure, confidential way to view your health records and communicate with your [facility] Vascular SurgeryTeam. To sign up for InferX go to [email or web address], "Click" [place] Now on the right side of the screen and complete the user registration information. HOW TO QUIT SMOKING Smoking is one of the hardest habits to break. About half of all those who have ever smoked have been able to quit, and most of those (about 70%) who still smoke want to quit. Here are some of the best ways to stop smoking. KEEP TRYING: It takes most smokers about 8 tries before they are finally able to fully quit. So, the more often you try and fail, the better your chance of quitting the next time! So, don't give up! GO COLD TURKEY: Most ex-smokers quit cold turkey. Trying to cut back gradually doesn't seem to work as well, perhaps because it continues the smoking habit. Also, it is possible to fool yourself by inhaling more while smoking fewer cigarettes. This results in the same amount of nicotine in your body! GET SUPPORT: Support programs can make an important difference, especially for the heavy smoker. These groups offer lectures, methods to change your behavior and peer support. Call the free national Quitline for more information. 805-CBLI-GIM (792-260-7218). Low-cost or free programs are offered by many hospitals, local chapters of the [place] [employer] (588-222-7244) and the [employer] (018-242-5009). Support at home is important too. Non-smokers can help by offering praise and encouragement. If the smoker fails to quit, encourage them to try again! NBBO-ZUW-JXKXQFT MEDICINES: For those who can't quit on their own, Nicotine Replacement Therapy (NRT) may make quitting much easier. Certain aids such as the nicotine patch, gum and lozenge are available without a prescription.However, it is best to use these under the guidance of your doctor. The skin patch provides a steady supply of nicotine to the body. Nicotine gum and lozenge gives temporary bursts of low levels of nicotine. Both methods take the edge off the craving for cigarettes. WARNING: If you feel symptoms ofnicotine overdose, such as nausea, vomiting, dizziness, weakness, or fast heartbeat, stop using these and see your doctor. PRESCRIPTION MEDICINES: After evaluating your smoking patterns and prior attempts at quitting, your doctor may offer a prescription medicine. Each has its unique advantage and side effects which your doctor can review with you. HEALTH BENEFITS OF QUITTING: The benefits of quitting start right away and keep improving the longer you go without smoking: -20 minutes: blood pressure and pulse return to normal -8 hours: oxygen levels return to normal -2 days: ability to smell and taste begins to improve as damaged nerves start to regrow -2-3 weeks: circulation and lung function improves -1-9 months: decreased cough, congestion and shortness of breath; less tired -1 year: risk of heart attack decreases by half -5 years: risk of lung cancer decreases by half; risk of stroke becomes the same as a non-smoker documented in this encounter H&P Notes * Chirag Pratt MD - 12/31/2023 9:16 AM EDT HISTORY AND PHYSICAL EXAMINATION - Vascular Surgery [facility] [place] [address] Name: Galen Jack Location: [place] [facility] [place] Date: 12/31/2023 Time: 9:16 AM PRESENTING PROBLEM: Problem with tunneled dialysis catheter HISTORY OF PRESENT ILLNESS: Galen Jack is a 78 year old, male with hx of ESRD, DM, HTN, and dyslipidemia. Presenting for problems with R sided TDC. Patient previously had a Right brachio basilic AVF which was never able to beused. Ptient remains catheter dependent since no other good options for autogenous fistula were available. Patient has chronic right innominate vein occlusion. Recently, this patient has been having high arterial pressures. Patient has not been able to reach prescribed blood flow rate and adequacy has been tranding down. HOSPITAL PROBLEM LIST: Active Problems: * No active hospital problems. * POA = Present On Admission PAST MEDICAL HISTORY: Past Medical History: Diagnosis Date Anxiety state Benign neoplasm of colon Benign neoplasm of colon 07/23/2011 COLONOSCOPY FLEXIBLE PROXIMAL DIAGNOSTIC performed by EMELI NAVARRO at [facility],HYPERPLASTIC POLYPS REPEAT COLONOSCOPY IN 5 YEARS Diverticulosis of colon DM type 2, goal A1c below 7 Dyslipidemia, goal to be determined ESRD on dialysis (HCC) 11/07/2020 TORIN (generalized anxiety disorder) 10/31/2017 HTN, goal below 140/90 Stage 5 chronic kidney disease not on chronic dialysis (HCC) PAST SURGICAL HISTORY: Past Surgical History: Procedure Laterality Date CARPAL TUNNEL SURGERY Right 1999 COLONOSCOPY THRU STOMA, W/BIOPSY 2005 3 polyps COLONOSCOPY, DIAGNOSTIC (RECTUM) 07/23/2011 COLONOSCOPY FLEXIBLE PROXIMAL DIAGNOSTIC [facility],HYPERPLASTIC POLYPS REPEAT COLONOSCOPY IN 5 YEARS COLONOSCOPY, DIAGNOSTIC (RECTUM) 10/19/2016 adenomatous polyp, diverticulosis, repeat 5 yrs/[facility] COLONOSCOPY, DIAGNOSTIC (RECTUM) 07/28/2018 adenomatous polyps, diverticulosis, fair prep, repeat 1 yr/[facility] COLONOSCOPY, DIAGNOSTIC (RECTUM) 06/08/2020 diverticulosis / [facility] EGD, FLEXIBLE, DIAGNOSTIC 11/28/2017 esophagitis, +H pylori / [facility] EGD, FLEXIBLE, DIAGNOSTIC 07/28/2018 duodenal erosion, gastritis, repeat 2 mo/[facility] EGD, FLEXIBLE, DIAGNOSTIC 11/03/2018 normal bx / [facility] EGD, FLEXIBLE, DIAGNOSTIC 01/11/2021 sm hiatal hernia / [facility] INFORMATION Right 2021 R arm fistula creation. INJECT DX/THER SUBSTANCE INTERLAMINAR LUMBAR/SACRAL W IMAGE GUIDE 03/01/2023 INJECTION SPINE LUMBAR OR SACRAL performed by Calvin Voss DO at OR [facility] INTRO CATH DIALYSIS CIRCUIT W/TRANSLUM BALLOON ANGIOPLASTY Right 02/22/2022 AV FISTULOGRAM & PERIPHERAL ANGIOPLASTY performed by Valdemar Nugent MD at OR [facility] REMOVE CATARACT, INSERT LENS PROSTH 2007 STRESS TEST 2004 normal per pt TRANSLUMINAL BALLOON ANGIOPLASTY CENTRAL DIALYSIS SEGMENT W/IMAGING Right 02/22/2022 ANGIOPLASTY CENTRAL DIALYSIS SEGMENT performed by Valdemar Nugent MD at OR [facility] FAMILY HISTORY: Family History Problem Relation Name Age of Onset Diabetes Mother Cancer Mother breast cancer Diabetes Other on dad's side Diabetes Father Diabetes Sister No Known Problems Son SOCIAL HISTORY: Social History Tobacco Use Smoking status: Former Current packs/day: 0.00 Average packs/day: 0.8 packs/day for 50.9 years (38.2 ttl pk-yrs) Types: Cigarettes Start date: 03/18/1959 Quit date: 02/15/2010 Years since quittin.8 Smokeless tobacco: Never Tobacco comments: smokes occasional cigarette with beer Vaping Use Vaping status: Never Used Substance Use Topics Alcohol use: Not Currently Comment: 3-4 beers/week Drug use: No CURRENT HOSPITAL MEDICATIONS: Note that completed medications (per the MAR) continue to display for 24 hours. Ordered medicationsto be given in the future also display. Current Facility-Administered Medications Medication Dose Route Frequency Provider 1/2 NSS infusion Intravenous Continuous Alexandra Foote PA-C ceFAZolin in dextrose (Ancef) ivpb 2 g 2 g IV Piggyback Pre-Op Alexandra Foote PA-C ALLERGIES: Statins, Charlie inhibitors, Januvia [sitagliptin], and Wound dressing adhesive ROS: Constitutional: (-) fever chills sweats or weight loss Cardiovascular: (-) negative: no chest pain, dyspnea, syncope, or palpitations Pulmonary: (-) negative: no cough, wheezing, or shortness of breath PHYSICAL EXAMINATION: Most Recent Vital Signs: BP: 199 mmHg/88 mmHg (12/31/23921) Pulse: 100 (12/31/23921) Resp: 18 (12/31/23921) Temp: 36 C (12/31/23921) Temp Summary: Temp Min: 36 C (96.8 F) Max: 36 C (96.8 F) SpO2: 100 % (12/31/23921) O2 flow rate: Supplemental O2 Delivery: Room Air, None (12/31/23921) Constitutional: no acute distress CV: normal rate and rhythm, no murmur, gallops or rub Chest: normal respiratory effort, lungs clear to auscultation and percussion Abdomen: normal: soft, bowel sounds normal, no masses, tenderness or organomegaly Musculoskeletal: (-) negative Extremities: no clubbing, cyanosis, or edema, otherwise grossly normal, warm, and dry LABS: None obtained IMAGING: None obtained IMPRESSION and PLAN: Plan for Tunneled dialysis catheter exchange with Dr Long this morning. REFERRING PHYSICIAN: 1. @REF@ PRIMARY CARE PHYSICIAN: Fiona Novoa DO Associated attestation - Brian Long MD - 12/31/2023 10:27 AM EDT I saw and evaluated the patient today. I have reviewed the resident/fellow physician note and agree. The patient was counseled at length regarding the nature of hemodialysis access procedures and the risks, benefits and alternatives of this surgery. The patient and I discussed that given enough time, all hemodialysis access will fail and will require periodic endovascular procedures and/or open surgery. I have discussed with the patient that they are at very high risk for the following anticipated complications due to the patient's co-morbidities including hemodialysis access thrombosis/malfunction/rupture, wound complications including nonhealing and wound infection, steal syndrome requiring additional procedures such as bypass surgery or arteriovenous access ligation, heart attack, respiratorycomplications, worsening kidney function requiring dialysis, nerve damage, bleeding or thrombosis requiring transfusion/re- operation, hemorrhage/thrombosis/aneurysm formation at the site of catheter i nsertion, clot or blockage of blood flow to the extremities, re-operation for limb ischemia, accessthrombosis or digit/hand/limb amputation. I have also explained to the patient that other risks of the procedure include, but are not limitedto, radiation injury, allergic reaction to the contrast, stroke, transfusion reaction, infection, or . The patient understands the seriousness of the situation and would like to proceed with theprocedure. The patient has had a thorough medical evaluation and management of symptoms as outlined above. Theplan is to proceed initially with angiography and then immediate intervention based upon the results. I plan on proceeding with an endovascular procedure as the only other alternative would be an invasive open surgical procedure (which the patient understands may still be required). If the lesion(s) are amenable to an endovascular approach, angioplasty will be performed first for appropriate lesions. Stenting will also be performed for lesions known to have a poor result from angioplasty alone and those lesions that demonstrate a poor result post angioplasty. I also discussed the possible need for placement of a dialysis catheter. I have discussed with the patient that they are at very high risk for the following anticipated complications due to the patient's co-morbidities including pneumothorax that may require a chest tube, air embolism, catheter clotting and replacement, catheter fracture, catheter malfunction, bleeding, catheter infection requiring removal or replacement or venous injury. The patient is also at anticipated high risk for future central vein stenosis or occlusion which can affect clotting of the catheter. Other complications related to a catheter discussed included pulmonary embolism, deep vein thrombosis requiring anticoagulation, , stroke, respiratory complications and radiation injury. The patient understands the seriousness of the situation and would like to proceed with surgery. All questions were answered, and informed consent was obtained. Will plan on additional dialysis access surgery to ensure continued functionality. Brian Long MD Section of Vascular and Endovascular Surgery [place], [place] [id number] [phone] documented in this encounter Nursing Notes * Jake Lester RN - 12/31/2023 12:26 PM EDT Dual Licensed Skin Assessment completed by jake krueger and deena krueger. The patient is/has a N/A Skin Breakdown (includes non blanchable erythema): Yes - Surgical/Procedural changes only. * Markus Lester RN - 12/31/2023 10:01 AM EDT Dual Licensed Skin Assessment completed by ANNE MARIE Feldman and ANNE MARIE Kwong. The patient is/has a N/A Skin Breakdown (includes non blanchable erythema): No Right elbow slightly red * Michelle Cullen RN - 12/30/2023 9:59 AM EDT Surgical case is tomorrow, no call made. Patient does not have a [facility] portal. Pre-operative chart review completed-instructions provided based on current medication list in [facility]. NO ANESTHESIA EVAL REQUESTED PER CASE DOCUMENTATION. Per Vascular Surgery: PATIENT PRE-OP INSTRUCTIONS: Surgical Procedure: Catheter exchange Surgical Date: 12/30 Surgeon: Dr. Long [facility] phone number: [phone] You will receive a phone call the night before surgery telling you what time to arrive to the Surgery Check-In Unit on the 1st floor of the hospital, Main Entrance. Nothing to eat or drink by mouth after midnight the night before surgery including no food, no gum/hard candy, coffee, tea, other drink, or tobacco product. Continue all of your normal morning medications with a few sips of water on day of surgery Please follow the pre-operative instructions provided by your vascular surgeon. If you have any questions regarding these instructions please contact your surgeon's office at [phone]. 24 hours prior to surgery/procedure DO NOT consume any alcohol. DO NOT use medical marijuana. DO NOT smoke or use tobacco products of any kind after midnight prior to surgery. *Using any of these products may increase your risks of procedural complications. Contact your surgeon's office if you develop any of the following within 2 weeks of surgery: A cold Infection Fever Shingles Chicken pox or exposure to chicken pox Open areas such as scrapes, cuts, cotton or other skin conditions Rashes GENERAL INSTRUCTIONS FOR PREPARING FOR SURGERY: BATHING INSTRUCTIONS: Bathe the evening prior to and the morning of surgery/procedure. Cleanse your body using ONLY anti-bacterial soap (eg, Dial, Safeguard) or any specific soap/cleansers and instructions provided by your surgeon (eg, Chlorhexidine). -You should brush your teeth the morning of surgery. Do NOT apply any lotions, powders, sprays, creams, oils, make-up, or deodorants after bathing. No hairspray, or nail kazakh on fingers or toes. Day of surgery/procedure do not use tampons. If you wear contacts wear your eyeglasses if available otherwise bring your contact supplies with you to remove them prior to your surgery/procedure. If you wear glasses or dentures, please bring cases in which you can store them during your surgery. Please remove all piercings and jewelry and leave them at home. Wear comfortable and loose clothing. -Please leave all valuables at home. -If you use a CPAP and are staying overnight, please bring your mask and tubing with you to the hospital. -If you use an assistive mobility device (walker, cane, etc), please label it with your name and bring to hospital. -An escort armored car guard and driver is required if you are being discharged the same day of the surgery. You should have a responsible adult over the age of 18 [address] drive you home. This person should be present with youin the hospital at the time of discharge and for the first 24 hours after the surgery to support your needs. If you are taking a taxi home, you must have your responsible alliance party accompany you in the taxi ride home at the time of discharge. OR times subject to change. Please check voicemail messages the day/evening before your surgery forany updates. PRE-OP: You will be taken to the pre-op area where your vital signs (blood pressure, pulse and temperature)will be taken. Any preparations that need to be done will be done there. When it is time for your surgery, you will be taken to the operating room. PARENTS OF PEDIATRIC PATIENTS WILL BE ALLOWED TO STAY WITH THEIR CHILDREN UNTIL THEY ARE ESCORTED TO THE OPERATING ROOM OUTPATIENT SURGERY PATIENTS: After your surgery you will be taken to the Same Day Surgery Unit when you are awake and will go home from there. You will get instructions about your home care before you leave. Arrange to have someone drive you home from the hospital. You may not drive for 24 hours after anesthesia. You must have an adult stay with you at home for 24 hours after your operation. This is very important. If you are not able to comply with these guidelines, your Short Stay surgery cannot be done. ADMISSION PATIENTS: After your stay in the recovery area, you will be taken to your room. Your family may visit you in your room based on current visitation policy. If a next day discharge is expected, it is important to make arrangements for a armored car guard and driver to take you home. Please be aware our visitation policies are subject to change Professionals, attendants, caregivers or family members are allowable visitors for patients with intellectual, developmental or cognitive disabilities, communication barriers or behavioral concerns. Because patients' and families' needs vary, they will be taken into account when applying visitation restrictions. [facility]: Contact # [phone] Directions to Surgical Suite in from the [place] Entrance The Surgical Waiting Room can be found in the Lobby [facility]. Enter through Main Lobby Entrance and the Waiting Room is directly in front of you. Proceed to check in and give them your name. Directions to Surgical Suite from the East Entrance Enter the East entrance and follow the hallway to the J elevator. Take the J elevator up to Level 1. Continue down the long hallway to the main [facility] Lobby. The Surgical Waiting Room will be on your Right. Proceed to check in and give them your Name. Directions to Surgical Suite from the Parking Garage Enter the [facility] lobby and proceed down the harrison to the left. At the end of the harrison, turn right. Continue down the long hallway to the main [facility] Lobby. The Surgical Waiting Room will be on your Right. Proceed to check in and give them your Name. THANK YOU FOR CHOOSING [facility]! documented in this encounter OR Notes * OR Surgeon - Brian Long MD - 12/31/2023 11:39 AM EDT [facility] [address] [facility] [id number] OPERATIVE REPORT Name: Galen Jack Date: 12/31/2023 Time: 11:39 AM [place] [facility] [place]: Vascular Surgery Date of Operation: 12/31/2023 Pre-op Diagnosis: Hemodialysis catheter dysfunction in patient with end-stage renal disease Post-op Diagnosis: Same Surgeon: Brian Long MD Assistants: Magno Resendiz MD and Chirag Pratt MD Anesthesia: Monitored Local Anesthesia with Sedation Operation: Removal and replacement of right internal jugular vein tunneled dialysis catheter with aPalindrome heparin bonded dialysis catheter with silver ion sleeve Findings: The previously placed dialysis catheter was removed and the new Palindrome tunneled dialysis catheter was inserted successfully into the jugular vein and brought out through a separate incision on the anterior chest wall. The tip of the dialysis catheter is at the level of the atriocaval junction. No evidence of pneumothorax on completion film. Good flush and draw from both ports. The dialysis catheter may be used immediately. Specimen and Disposition: None Estimated Blood Loss: 10 ml Fluids: 300 ml crystalloid Urine output: None Drains/Implants: Palindrome catheter Complications: None Postoperative Condition: Stable Indications and History: This is a 78 year olddws-dytd-cxf male who presents with end-stage renal disease requiring need for chronic hemodialysis. The previously placed tunneled dialysis catheter is not functioning properly andneeds replacement. The patient understands the risks, benefits and alternatives of the procedure and agrees to proceed with the catheter replacement. Description of Operation: The patient was identified and the procedure verified. A time-out was held and the correct procedure and correct site were confirmed with the consent. The patient was given anesthesia and the patients right neck and chest was prepped and draped in the usual sterile fashion. Local anesthetic was i nfiltrated over the internal jugular vein and along the track on the chest wall. The exit site for the old catheter was slightly incised. A stiff angled glidewire was passed down each port of the Palindrome catheter into the superior vena cava under fluoroscopic guidance. The old catheter was removed. The proper length of catheter was confirmed under fluroscopic guidance. The 19 cm Palindrome catheter was then passed over the glidewires into the jugular vein. The tip of the catheter was positioned at the atriocaval junction. The position of the catheter was confirmed by fluroscopy and found to be without any significant kink. Thecatheter was secured with 3-0 nylon suture. Each lumen of the catheter was aspirated and had excellent blood return. Each lumen was flushed with heparinized saline and capped with straight heparin per protocol. Sterile dressings applied including chlorhexidine dressing over the catheter exit site. Sponge count and needle counts were correct. The patient was transported in stable condition to the Recovery Room. Attestation: I was present and scrubbed for the tolentino portions of the procedure documented in this encounter Plan of Treatment Upcoming Encounters Date Type Department Care Team (Late st Contact Info) Description 03/03/2024 11:00 AM EST Office Visit Transplant Clinic, [place] [address], [place] [id number] Narcisa Jones MD [facility] [place] [address] Samuel Schulz MD [address] [place] [address] Nurse Bryanna Renal Transplant [facility] [place] [address] Yolanda Noonan LSW [address] [place], [place] [id number] 03/03/2024 3:00 PM EST Laboratory Outpatient Laboratory, [address] [phone] [place], Lab B1a [facility] [address] [place], [place] [id number] 06/09/2024 8:45 AM EDT Office Visit Urology, [facility] [address] [facility] [place] [id number] Adolfo Tian MD [address] [place] [address] Scheduled Orders Name Type Priority Associated Diagnoses Orde r Schedule GLUCOSE METER, POINT OF CARE (COMMUNICATION ORDER) Point of Care Testing STAT Perform Now for 1 Occurrences starting 12/31/2023 until 12/31/2023 Health Maintenance Due Date Last Done Comments [...] 09/2022, 03/20/2022, Additional history exists Depression Screening 11/04/2024 11/05/2023 DTap/Tdap Vaccines (3 - Td or Tdap) [...] Not on filedocumented as of this encounter Procedures Procedure Name Priority Date/Time Associated Diagnosis Comments VASC PROCEDURE IN VASCULAR ANGIO SUITE Routine 12/31/2023 11:46 AM EDT POTASSIUM, WHOLE BLOOD STAT 12/31/2023 9:48 AM EDT GLUCOSE METER, POINT OF CARE CLAIRE 12/31/2023 9:39 AM EDT documented in this encounter Results * VASC PROCEDURE IN VASCULAR ANGIO SUITE (12/31/2023 11:46 AM EDT) Narrative Scheduling, Silent - 12/31/2023 11:47 AM EDT This procedure will not be read by a Radiologist. Please see operative note. Brian Long MD RAD SPECIAL PROCED URES * POTASSIUM, WHOLE BLOOD (12/31/2023 9:48 AM EDT) Potassium 4.3 3.5 - 5.1 mmol/L 12/31/2023 9:58 AM EDT [place]ORAT[place] [facility] [place] Venous blood specimen / Unknown Venipuncture / Unknown 12/31/2023 9:48 AM EDT 12/31/2023 9:55 AM EDT Alexandra Foote PA-C LAB BLOOD ORDER [facility] [place] [address] [place] [address] * GLUCOSE METER, POINT OF CARE (12/31/2023 9:39 AM EDT) GLUCOSE - POCT 103 70 - 120 mg/dL 12/31/2023 9:41 AM EDT [employer] Blood Whole blood specimen / Unknown 12/31/2023 9:39 AM EDT 12/31/2023 9:41 AM EDT Brian Long MD LAB POINT OF CARE TEST DOCKED DEVICE UNSOLICITED RESULTS Wan Shidao managementLONGS PEAK HOSPITALMode [facility] [address] [place] [address] documented in this encounter Visit Diagnoses Diagnosis ESRD on dialysis (HCC)- Primary End stage renal disease Dialysis AV fistula malfunction (HCC) Mechanical complication of other vascular device, implant, and graft documented in this encounter Administered Medications Inactive Administered Medications - up to 3 most recent administrations Medication Order MAR Action Action Date Dose Rate Site 1/2 NSS infusion Intravenous, at 25 mL/hr, CONTINUOUS, Starting on Sat12/31/23 at 1000, Until Sat12/31/23 at 1700, Pre-Op New Bag 12/31/2023 10:51 AM EDT documented in this encounter Active and Recently Administered Medications Times are shown in EDT. Scheduled Medication Order 12/29/2023 12/30/2023 12/31/2023 ceFAZolin in dextrose (Ancef) ivpb 2 g (COMPLETED) 2 g, IV Piggyback, PREOP, 1 dose, First dose on Sat12/31/23 at 1000, Administer 60 minutes prior to skin incision, Pre-Op 1108 (Given - Provid er: Eren Laird CRNA) Continuous Medication Order 12/29/2023 12/30/2023 12/31/2023 1/2 NSS infusion Intravenous, at 25 mL/hr, CONTINUOUS, Starting on Sat12/31/23 at 1000, Until Sat12/31/23 at 1700, Pre-Op 1051 (New Bag - Prov ider: Eren Laird CRNA)1143 (Anes Intra-Op Fluid - Provider: Eren Laird CRNA) PRN Medication Order 12/29/2023 12/30/2023 12/31/2023 bupivacaine HCl 30 mL, lidocaine 1 % 30 mL inj (CANCELED) ONCE PRN INTRA PROCEDURE, Starting on Sat12/31/23 at 1142, Until Sat12/31/23 at 1150, Intra-Op 1142 (Given - Provid er: Magno Resendiz MD - Comment: Local injection surgical site) hEParin 1000 UNIT/ML inj (CANCELED) ONCE PRN INTRA PROCEDURE, Starting on Sat12/31/23 at 1141, Until Sat12/31/23 at 1150, Intra-Op 1141 (Given - Provid er: Magno Resendiz MD - Comment: 2 ml each port) hEParin 5,000 Units in NSS 500 mL infusion (CANCELED) ONCE PRN INTRA PROCEDURE, Starting on Sat12/31/23 at 1118, Until Sat12/31/23 at 1150, Intra-Op 1118 (Given - Provid er: Magno Resendiz MD) documented in this encounter Advance Directives * Full Code (Latest Code Status on File) Date Activated Date Inactivated Comments 07/17/2018 1:29 AM 07/18/2018 10:02 PM This order re flects the patients wishes and were consensually agreed upon. Question Answer Comments Discussion of Advance Directives occurred with: Patient Care Teams Tubing Assembler Relationship Specialty Start Date End Date Fiona Novoa DO [address] [place] [address] PCP - General Family Medicine 10/04/15 documented as of this encounter
--- OUTSIDE RECORDS SUMMARY | 2024-03-17 22:10 | External Medical Summary | Summary of Care ---
Author Name Unknown Organization [facility] Address [address] [facility] [address] Phone [phone] Care Team Providers Care Business Development Recruiter Name Role Phone Fiona Novoa DO Primary Care Provider [phone] Reason for Visit * Reason Onset Date Comments Medication Question 01/20/2024 Encounter Details Date Type Department Care Team (Late st Contact Info) Description 01/20/2024 Telephone NephrologyKris [address] [facility] [place] [address] Brooklyn Carpenter MD [address] [facility] [place] [address] Medication Question Allergies Active Allergy Reactions Criticality Noted Date Comments Charlie Inhibitors 11/06/2018 Sitagliptin Other (Please comment) 02/22/2015 lightheadedness Statins High 11/06/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 Wound Dressing Adhesive 11/12/2023 TAPE-- SKIN TEARS documented as of this encounter (statuses as of 01/27/2024) Medications Cholecalciferol (VITAMIN D) 1000 UNIT Capsule [...] hemoglobin A1c goal of less than 7.0% ([facility]) USE TO TEST BLOOD SUGAR UP TO 4 TIMES DAILY 300 Strip 3 01/07/20 23 024 Active FreeStyle Lizbeth 2 Spencer DeviceIndications: Type 2 diabetes mellitus with hemoglobin A1c goal of less than 8.0% ([facility]) Use as directed. Dx E11.9 1 Each 1 01/15/20 23 Active Additional Information Patient not taking.Reported on 11/05/2023 FreeStyle Lizbeth 2 SensorIndications: Type 2 diabetes mellitus with hemoglobin A1c goal of less than 8.0% ([facility]) Use as directed. Dx E11.9 1 Each 5 01/15/20 23 Active Additional Information Patient not taking.Reported on 11/05/2023 Ezetimibe 10 MG Oral Tablet (Zetia)Indications :Mixed [...] 11/19/2023 10:41 AM EDT 08/30/19 24 Active Losartan Potassium 25 MG Oral Tablet (Cozaar) take 2 tablets by mouth daily in the morning 60 Tablet 3 01/16/2024 10:40 AM EDT 10/11/19 24 Active Metoprolol Succinate ER 25 MG Oral Tablet Extended Release 24 Hour (toPROL XL) Take 1/2 tablet by mouth after dialysis on Saturday, Saturday and Saturday01/14/20 24 Active documented as of this encounter (statuses as of 01/27/2024) Active Problems Problem Noted Date Diagnosed Date [...] as of this encounter (statuses as of 01/27/2024) Resolved Problems Problem Noted Date Diagnosed Date [...] as of this encounter (statuses as of 01/27/2024) Immunizations Name Administration Dates Next Due COVID-19 mRNA, LNP-s, No Pre serve, 2-Dose Series ([employer]) 02/14/2021,06/30/2020,06/09/2020 Covid-19, Mrna, Lnp-s, Pf, B ivalent, 30 Mcg, IM, 12 yrs and above ([employer]) 01/23/2022 Hepatitis B, 20+ yrs 09/27/2020,03/28/2020 Pneumococcal [...] Score 0 01/13/2024 [facility] - Occupational Stress Questionnaire Answer Date Recorded [...] Author No 07/16/2018 9:55 PM EDT Summer Greenfield, PUBLIC WORKS MANAGER * Are you blind or do you have serious difficulty seeing, even when wearing glasses? Answer Date of Assessment Author No 07/16/2018 9:55 PM EDT Summer Greenfield, PUBLIC WORKS MANAGER * Does this person have serious difficulty walking or climbing stairs? Answer Date of Assessment Author Yes 02/21/2021 10:15 AM EST Summer Gaxiola ch, PUBLIC WORKS MANAGER * Do you have difficulty dressing or bathing? (5 years old or older) Answer Date of Assessment Author No 07/16/2018 9:55 PM EDT Summer Greenfield A, PUBLIC WORKS MANAGER * Because of a physical, mental, or emotional condition, do you have difficulty doing errands alone such as visiting a doctors office or shopping? (15 years old or older) Answer Date of Assessment Author No 07/16/2018 9:55 PM EDT Summer Greenfield, PUBLIC WORKS MANAGER documented as of this encounter Mental Status * Because of a physical, mental, or emotional condition, do you have serious difficulty concentrating, remembering, or making decisions? (5 years old or older) Answer Entry Date Author No 07/16/2018 9:55 PM EDT Summer Greenfield, PUBLIC WORKS MANAGER documented in this encounter Miscellaneous Notes * Telephone Encounter - Carmina Cantu RN - 01/27/2024 2:00 PM EST TE with Jenni at [facility]. She does verify that pt is currently taking Metoprolol as ordered . * Telephone Encounter - Brooklyn Carpenter MD - 01/27/2024 12:49 PM EST Pls clarify >> pls review w/ jenni at [facility] if pt is/is not to be currently taking med * Telephone Encounter - Carmina Cantu RN - 01/20/2024 1:49 PM EST Call received from Jenni [facility]. Pt was told this medication had been discontinued. RX signed by provider on 01/14/24. documented in this encounter Plan of Treatment Upcoming Encounters Date Type Department Care Team (Late st Contact Info) Description 01/29/2024 3:10 PM EST Home Visit Care Coordination and Integration [address] [place] [address] Cheryle Doe, Community Health Real Estate Leasing Manager [address] [place], [place] 03/03/2024 11:00 AM EST Office Visit Transplant Clinic, [place] [address] [place], [place] [phone] Narcisa Jones MD [address] [place] [phone] Samuel Schulz MD [address] [place], [place] Bryanna Nurse Renal Transplant [address] [place] [address] Yolanda Noonan LSW [address] [place], [place] 03/03/2024 3:00 PM EST Laboratory Outpatient Laboratory, [place] [address] [place] [phone] [place], Lab [address]1a [address] [facility] [place] [address] 06/09/2024 8:45 AM EDT Office Visit Urology, [facility] [address] [place] [address] Adolfo Tian MD [address] [place] [address] Health Maintenance Due Date Last Done [...] exists Depression Screening 01/12/2025 01/13/2024, 11/05/19 24 DTap/Tdap Vaccines (3 - Td or Tdap) [...] Advance Directives occurred with: Patient Care Teams Business Development Recruiter Relationship Specialty Start Date End Date Fiona Novoa DO [address] [place] [address] PCP - General Family Medicine 10/04/15 documented as of this encounter
--- OUTSIDE RECORDS SUMMARY | 2024-03-17 22:10 | External Medical Summary | Summary of Care ---
Author Name Unknown Organization [facility] Address [address] [place] [address] Phone [phone] Care Team Providers Care E Business Manager Name Role Phone Remy Novoaa Lottie CARTER Primary Care Provider [phone] Encounter Details Date Type Department Care Team (Late st Contact Info) Description 01/29/2024 3:10 PM EST Home Visit Care Coordination and Integration [address] [place], [place] [phone] Cheryle Doe, Community Health Pole Setter [address] [place], [place] [phone] Allergies Active Allergy Reactions Criticality Noted Date Comments Charlie Inhibitors 11/06/2018 Sitagliptin Other (Please comment) 02/22/2015 lightheadedness Statins High 11/06/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 Wound Dressing Adhesive 11/12/2023 TAPE-- SKIN TEARS documented as of this encounter (statuses as of 02/05/2024) Medications Cholecalciferol (VITAMIN D) 1000 UNIT Capsule [...] hemoglobin A1c goal of less than 7.0% ([facility]) USE TO TEST BLOOD SUGAR UP TO 4 TIMES DAILY 300 Strip 3 01/07/20 23 024 Active Additional Information Patient not taking.Reported on 01/29/2024 FreeStyle Lizbeth 2 [place] DeviceIndications: Type 2 diabetes mellitus with hemoglobin A1c goal of less than 8.0% ([facility]) Use as directed. Dx E11.9 1 Each 1 01/15/20 23 Active Additional Information Patient not taking.Reported on 11/05/2023 FreeStyle Lizbeth 2 SensorIndications: Type 2 diabetes mellitus with hemoglobin A1c goal of less than 8.0% ([facility]) Use as directed. Dx E11.9 [...] 01/24/2024 2:10 PM EST 01/20/20 24 Active documented as of this encounter (statuses as of 02/05/2024) Active Problems Problem Noted Date Diagnosed Date [...] as of this encounter (statuses as of 02/05/2024) Resolved Problems Problem Noted Date Diagnosed Date [...] as of this encounter (statuses as of 02/05/2024) Immunizations Name Administration Dates Next Due COVID-19 mRNA, LNP-s, No Pre serve, 2-Dose Series ([employer]) 02/14/2021,06/30/2020,06/09/2020 Covid-19, Mrna, Lnp-s, Pf, B ivalent, [...] PHQ Adult Total Score 0 01/13/2024 [facility] - Occupational Stress Questionnaire Answer Date Recorded [...] Sign Reading Time Taken Comments Blood Pressure 150/70 01/29/2024 4:15 PM EST Pulse 58 01/29/2024 4:15 PM EST Temperature - - Respiratory Rate - - Oxygen Saturation 98% 01/29/2024 4:15 PM EST Inhaled Oxygen Concentration - - Weight - - Height - - Body Mass Index - - documented in this encounter Functional Status * [...] documented in this encounter Progress Notes * Cheryle Doe, Community Health Pole Setter - 01/29/2024 4:22 PM EST Telemedicine visit: No Community Health Pole Setter (MICHEL) documentation: This CHW initiated home visit with patient and patients daughter Jaci When this CHW arrived patient was giving daughter a hard time and would not come out of his bedroom. He was hollering at daughter. Daughter reported that patient is always nasty and mean with her. This has gotten increasingly worse over the past few months. Daughter said it is not a UTI, its different. He is more confused and is going through son's mail and getting son's mail(POA) patient is going into daughters bedroom and looking for things. Feels his alzheimer's is getting worse. This CHW provided support and put several referrals through [facility] for agencies for home healthsupport and career and technology education teacher support in the home. Daughter has already been in touch with [facility] and has some agencies to contact. Patient cannot be left alone for any amount of time and she works outside of the home. Brother Galen Corral who is POA lives near and does not help her at all with patient. Biggest need is in home support of patient. This CHW completed: VS CHW survey SDOH assessment Home safety assessment documented in this encounter Plan of Treatment Upcoming Encounters Date Type Department Care Team (Late st Contact Info) Description 03/03/2024 11:00 AM EST Office Visit Transplant Clinic, [place] [address] [place] [address] Narcisa Jones MD [address] [place] [address] Samuel Schulz MD [address] [place] [address] Bryanna Nurse Renal Transplant [address] [place] [address] Yolanda Noonan, HEAVY EQUIPMENT SALES MANAGER [address] [place] [address] 03/03/2024 3:00 PM EST Laboratory Outpatient Laboratory, [place] [address] [place] [phone] [place], Lab B1a [address] [place], [place] [phone] 06/09/2024 8:45 AM EDT Office Visit Urology, [facility] [address] [facility] [place] [address] Adolfo Tian MD [address] [place] [phone] Health Maintenance Due Date Last Done Comments [...] Advance Directives occurred with: Patient Care Teams E Business Manager Relationship Specialty Start Date End Date Fiona Novoa DO [address] [place] [address] PCP - General Family Medicine 10/04/15 documented as of this encounter
--- OUTSIDE RECORDS SUMMARY | 2024-03-17 22:10 | External Medical Summary | Summary of Care ---
Author Name Unknown Organization [facility] Address [address] [place] [address] Phone [phone] Care Team Providers Care Vending Technician Name Role Phone KaydenFiona mooney Primary Care Provider [phone] Reason for Visit * Reason Onset Date Comments Advice 12/26/2023 Encounter Details Date Type Department Care Team (Late st Contact Info) Description 12/26/2023 Telephone Vascular Surg [facility] [address], [place] [phone] Huy Zapien MD [address] [place] [address] Advice Allergies Active Allergy Reactions Criticality Noted Date Comments Charlie Inhibitors 11/06/2018 Sitagliptin Other (Please comment) 02/22/2015 lightheadedness Statins High 11/06/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 Wound Dressing Adhesive 11/12/2023 TAPE-- SKIN TEARS documented as of this encounter (statuses as of 12/30/2023) Medications Medication Sig Dispensed Refills Start Date [...] hemoglobin A1c goal of less than 7.0% ([facility]) USE TO TEST BLOOD SUGAR UP TO 4 TIMES DAILY 300 Strip 3 01/06/2023 4 Active OneTouch Delica Plus [id number] USE UP TO 4 TIMES A DAY 100 Each 5 01/06/2023 4 Active FreeStyle Lizbeth 2 [place] DeviceIndications:Ty pe 2 diabetes mellitus with hemoglobin [...] as of this encounter (statuses as of 12/30/2023) Active Problems Problem Noted Date Diagnosed Date Persistent atrial fibrillation 04/03/2023 Gastroesophageal reflux disease [...] as of this encounter (statuses as of 12/30/2023) Resolved Problems Problem Noted Date Diagnosed Date [...] as of this encounter (statuses as of 12/30/2023) Immunizations Name Administration Dates Next Due COVID-19 [...] Recorded PHQ Adult Total Score 0 04/24/2022 [facility]ational [facility] Questionnaire Answer [...] encounter Miscellaneous Notes * Telephone Encounter - Garth Phillips OSA - 12/30/2023 9:30 AM EDT Pre-op instructions given Patient scheduled for tomorrow with Dr. Long * Telephone Encounter - Alexandra Foote PA-C - 12/30/2023 9:24 AM EDT Orders signed and held I created letter...probably cannot get it to patient prior to surgery tomorrow so if that is the case please call to go over instructions. Thanks * Telephone Encounter - Garth Phillips OSA - 12/30/2023 9:14 AM EDT Patient's son called and scheduled him for a CVC exchange tomorrow with Dr. Long Case booked Relayed NPO after midnight, please document any other pre-op instructions * Telephone Encounter - Garth Phillips OSA - 12/30/2023 8:48 AM EDT Called [facility] and spoke to Jenni, she directed me to call patient's daughter, Jaci, as she told them she would be able to bring him. Called Jaci and left a message. * Telephone Encounter - Garth Phillips OSA - 12/27/2023 10:49 AM EDT Called and left patient a message to schedule CVC exchange is able to do this on Saturday 12/30. * Telephone Encounter - Shannan Farfan LPN - 12/26/2023 2:50 PM EDT Secretaries, Please set patient up for CVC exchange. Shannan Farfan LPN 12/26/2023 2:51 PM * Telephone Encounter - Garth Phillips OSA - 12/26/2023 2:45 PM EDT Message received from Lenora at [facility] Good Afternoon, I am emailing regarding a mutual patient Galen Jack : 1945 . We have been having several issues with his CVC, the main problem being that his arterial pressures are too high. We have tried repositioning, flushing the lumens, reversing lines (we often have to do this). Specifically, this Saturday and Saturday we have been unable to reach his prescribed BFR. His adequacy is also noted to betrending down, likely due to poor catheter function. We have informed the patient we would be reaching out to you for a potential CVC exchange. He would prefer [facility] but would be willing to go to [place]. Please let us know if you need any other information from us. I have attached data from his treatments regarding his BFR not meeting prescription. Thanks! Lenora Hawk, [facility] [address], [address] [place] [address] [phone] documented in this encounter Plan of Treatment Upcoming Encounters Date Type Department Care Team (Latest Contact Info) Description 12/31/2023 10:50 AM EDT Hospital Encounter OR C, OPERATING ROOM [facility] [address] [place] [address] Brian Long MD [address] [place] [address] 12/31/2023 10:50 AM EDT - 12/31/2023 12:10 PM EDT Surgery OR [facility]PER[facility] ROOM [facility] [address] [place] [address] Brian Long MD [address] [place] [address] REPLACEMENT COMPLETE TUNNELED CENTRAL CATHETER NO PORT 03/03/2024 11:00 AM EST Office Visit Transplant Clinic, [place] [address] [place] [address] Narcisa oJnes MD [address] [place] [phone] Samuel Schulz MD [address] [place], [place] [phone] Bryanna Nurse Renal Transplant [address] [place] [address] Yolanda Noonna, QUALITY IMPROVEMENT CONSULTANT [address], [place] [phone] 03/03/2024 3:00 PM EST Laboratory Outpatient Laboratory, [place] [address] [place] [phone] [place], Lab B1a [address] [place], [place] [phone] 06/09/2024 8:45 AM EDT Office Visit Urology, [facility] [address] [facility] [place] [address] Adolfo Tian MD [address] [place] [address] Scheduled Procedures Name Priority Associated Diagnoses Date/Ti me REPLACEMENT COMPLETE TUNNELED CENTRAL CATHETER NO PORT ESRD (end stage renal disease) on dialysis (HCC) 12/31/2023 10:50 AM EDT Health Maintenance Due Date Last Done Comments [...] Advance Directives occurred with: Patient Care Teams Vending Technician Relationship Specialty Start Date End Date Fiona Novoa DO [address] [place] [address] PCP - General Family Medicine 10/04/15 documented as of this encounter
--- OUTSIDE RECORDS SUMMARY | 2024-03-17 22:10 | External Medical Summary ---
Author Name Unknown Address Unknown Organization K01:[facility]ATORY [facility] [address] [place] [address] Laboratory Report Ordering Provider Test Date Status BRIONNA ABREU 12/31/2023 09:48:35 Final Observation Date Value Abnormality Reference (Units ) Status Potassium, Whole Blood 12/31/2023 09:48:35 4.3 3.5-5.1 (mmol/L) Final Performing Location LABORATORY C - [address] [place] [address]
--- OUTSIDE RECORDS SUMMARY | 2024-03-17 22:10 | External Medical Summary ---
Author Name Unknown Address Unknown Organization : Laboratory Report Ordering Provider Test Date Status SANCHEZ LOWERY 01/13/2024 05:15:00 Final Observation Date Value Abnormality Reference (Units ) Status REFERENCE LAB SCANNED REPORT 01/13/2024 05:15:00 See Scanned Report Final [facility] STORAGE FEE 01/13/2024 05:15:00 Serum not tested, on hold at [facility] Final Performing Location
--- OUTSIDE RECORDS SUMMARY | 2024-03-17 22:10 | External Medical Summary | Summary of Care ---
Author Name Unknown Organization [facility] [address] [facility] [address] Phone [phone] Care Team Providers Care Framer Name Role Phone Fiona Novoa DO Primary Care Provider [phone] Reason for Visit * Reason Onset Date Comments Medication Question 01/20/2024 Encounter Details Date Type Department Care Team (Late st Contact Info) Description 01/20/2024 Telephone NephrologyKris [address] [facility] [place] [address] Brooklyn Carpenter MD [address] [facility] [place] [address] Medication Question Allergies Active Allergy Reactions Criticality Noted Date Comments Charlie Inhibitors 11/06/2018 Sitagliptin Other (Please comment) 02/22/2015 lightheadedness Statins High 11/06/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 Wound Dressing Adhesive 11/12/2023 TAPE-- SKIN TEARS documented as of this encounter (statuses as of 01/20/2024) Medications Medication Sig Dispensed Refills Start Date [...] hemoglobin A1c goal of less than 7.0% ([facility]) USE TO TEST BLOOD SUGAR UP TO 4 TIMES DAILY 300 Strip 3 01/06/2023 Active FreeStyle Lizbeth 2 [place] DeviceIndications:Ty pe 2 diabetes mellitus with hemoglobin [...] mouth after dialysis on Saturday, Saturday and Saturday01/14/2024 Active documented as of this encounter (statuses as of 01/20/2024) Active Problems Problem Noted Date Diagnosed Date [...] as of this encounter (statuses as of 01/20/2024) Resolved Problems Problem Noted Date Diagnosed Date [...] as of this encounter (statuses as of 01/20/2024) Immunizations Name Administration Dates Next Due COVID-19 mRNA, LNP-s, No Pre serve, 2-Dose Series ([employer]) 02/14/2021,06/30/2020,06/09/2020 Covid-19, Mrna, Lnp-s, Pf, B ivalent, [...] Recorded PHQ Adult Total Score 0 04/24/2022 [facility] of Occupat ional Health - Occupational Stress [...] 1:49 PM EST Call received from Jenni at [facility]. Pt was told this medication had been discontinued. RX signed by provider on 01/14/24. documented in this encounter Plan of Treatment Upcoming Encounters Date Type Department Care Team (Late st Contact Info) Description 03/03/2024 11:00 AM EST [facility] [address] [place], [place] [phone] Narcisa Jones MD [address] [place] [address] Samuel Schulz MD [address] [place], [place] Nurse Bryanna Renal Transplant [address] [place] Yolanda Noonan LSW [address] [place], [place] 03/03/2024 3:00 PM EST Laboratory Outpatient Laboratory, [place] [address] [facility] [place] [address] [place], Lab B1a [address] [place] [address] 06/09/2024 8:45 AM EDT Office Visit Urology, [facility] [address] [place] [address] Adolfo Tian MD [address] [place] [...] Advance Directives occurred with: Patient Care Teams Framer Relationship Specialty Start Date End Date Fiona Novoa DO [address] [place] [address] PCP - General Family Medicine 10/04/15 documented as of this encounter
--- OUTSIDE RECORDS SUMMARY | 2024-03-17 22:10 | External Medical Summary | Summary of Care ---
Author Name Unknown Organization [facility] Address [address] [facility] [place] [address] Phone [phone] Care Team Providers Care Supervisor Wet Pour Name Role Phone Fiona Novoa DO Primary Care Provider [phone] Reason for Visit * Reason Onset Date Comments Advice 01/02/2024 Encounter Details Date Type Department Care Team (Late st Contact Info) Description 01/02/2024 Telephone Family Practice [facility] [address] [place] [address] Fiona Novoa DO [address] [place] [address] Advice Allergies Active Allergy Reactions Criticality Noted Date Comments Charlie Inhibitors 11/06/2018 Sitagliptin Other (Please comment) 02/22/2015 lightheadedness Statins High 11/06/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 Wound Dressing Adhesive 11/12/2023 TAPE-- SKIN TEARS documented as of this encounter (statuses as of 01/09/2024) Medications Medication Sig Dispensed Refills Start Date [...] Strip 3 01/06/2023 Active FreeStyle Lizbeth 2 [place] DeviceIndications:Ty pe 2 diabetes mellitus with hemoglobin [...] as of this encounter (statuses as of 01/09/2024) Active Problems Problem Noted Date Diagnosed Date [...] as of this encounter (statuses as of 01/09/2024) Resolved Problems Problem Noted Date Diagnosed Date [...] as of this encounter (statuses as of 01/09/2024) Immunizations Name Administration Dates Next Due COVID-19 mRNA, LNP-s, No Pre serve, 2-Dose Series ([employer]) 02/14/2021,06/30/2020,06/09/2020 Covid-19, Mrna, Lnp-s, Pf, B ivalent, [...] Recorded PHQ Adult Total Score 0 04/24/2022 [facility] [place] of Occupat ional Health - Occupational Stress [...] encounter Miscellaneous Notes * Telephone Encounter - Angelina Womack RN - 01/09/2024 9:11 AM EDT Patient is not currently enrolled with case management. I can reach out to patient and his EC Jaci Romo to discuss needs. [employer] [place]. * Telephone Encounter - Marina Vanegas RN - 01/07/2024 1:00 PM EDT Is this pt being followed by family caseworker? If not, any thoughts? * Telephone Encounter - Viviane Ricketts OSA - 01/02/2024 3:31 PM EDT Reason for patient's call: asking to speak to nurse about home health and getting assistance while she is at work She would like to know how to go about getting him care at home . She would like a call back to discuss She was asking to speak to family caseworker . Please call to assist as dedicated advised to send over to front desk auxiliary to have call back . documented in this encounter Plan of Treatment Upcoming Encounters Date Type Department Care Team (Late st Contact Info) Description 03/03/2024 11:00 AM EST Office Visit Transplant Clinic, [place] [address] [place], [place] [phone] Narcisa Jones MD [address] [place] [phone] Samuel Schulz MD [address] [place] [address] Nurse Bryanna Renal Transplant [address] [place] [address] Yolanda Noonan LSW [address] [place] [address] 03/03/2024 3:00 PM EST Laboratory Outpatient Laboratory, [place] [address] [place] [phone] Ellen Stauffer B1a [address] [place] [address] 06/09/2024 8:45 AM EDT Office Visit Urology, [facility] [address] [facility] [place] [address] Adolfo Tian MD [address] [place] [address] Health Maintenance Due Date Last Done Comments [...] Advance Directives occurred with: Patient Care Teams Supervisor Wet Pour Relationship Specialty Start Date End Date Fiona Novoa DO [address] [place] [address] PCP - General Family Medicine 10/04/15 documented as of this encounter
--- OUTSIDE RECORDS SUMMARY | 2024-03-17 22:10 | External Medical Summary | Summary of Care ---
Author Name Unknown Organization [facility] Address [address] [facility] [address] Phone [phone] Care Team Providers Care Buttonhole Maker Name Role Phone Fiona Novoa DO Primary Care Provider [phone] Reason for Visit * Reason Onset Date Comments Medication Question 01/20/2024 Encounter Details Date Type Department Care Team (Late st Contact Info) Description 01/20/2024 Telephone NephrologyKris [address] [place] [address] Brooklyn Carpenter MD [address] [place] [address] Medication Question Allergies Active Allergy Reactions Criticality [...] hemoglobin A1c goal of less than 7.0% ([facility]) USE TO TEST BLOOD SUGAR UP TO 4 TIMES DAILY 300 Strip 3 01/07/20 23 024 Active FreeStyle Lizbeth 2 [place] DeviceIndications: Type 2 diabetes mellitus with hemoglobin A1c goal of less than 8.0% ([facility]) Use as directed. Dx E11.9 1 Each 1 01/15/20 23 Active Additional Information Patient not taking.Reported on 11/05/2023 FreeStyle Lizbeth 2 SensorIndications: Type 2 diabetes mellitus with hemoglobin A1c goal of less than 8.0% ([facility]) Use as directed. Dx E11.9 [...] mRNA, LNP-s, No Pre serve, 2-Dose Series ([employer]) 02/14/2021,06/30/2020,06/09/2020 Covid-19, Mrna, Lnp-s, Pf, B ivalent, 30 Mcg, IM, 12 yrs and above ([employer]) 01/23/2022 Hepatitis B, 20+ yrs 09/27/2020,03/28/2020 Pneumococcal [...] 01/13/2024 [facility] of Occupat ional [facility] - Occupational Stress Questionnaire Answer Date [...] No 07/16/2018 9:55 PM EDT Summer Greenfield, PARTNERSHIP MARKETING MANAGER * Are you blind or do you have serious difficulty seeing, even when wearing glasses? Answer Date of Assessment Author No 07/16/2018 9:55 PM EDSummer Kothari LPN * Does this person have serious difficulty walking or climbing stairs? Answer Date of Assessment Author Yes 02/21/2021 10:15 AM EST Summer Gaxiola ch, LPN * Do you have difficulty dressing or bathing? (5 years old or older) Answer Date of Assessment Author No 07/16/2018 9:55 PM EDT Summer Greenfield PARTNERSHIP MARKETING MANAGER * Because of a physical, mental, [...] encounter Miscellaneous Notes * Telephone Encounter - Brooklyn Carpenter MD - 01/27/2024 12:49 PM EST Pls clarify >> pls review w/ jenni at [facility] if pt is/is not to be currently taking med * Telephone Encounter - Carmina Cantu RN - 01/20/2024 1:49 PM EST Call received from Jenni at [facility]. Pt was told this medication had been discontinued. RX signed by provider on 01/14/24. documented in this encounter Plan of Treatment Upcoming Encounters Date Type Department Care Team (Late st Contact Info) Description 01/29/2024 3:10 PM EST Home Visit Care Coordination and Integration [address] [place] [address] Cheryle Doe, Community Health Travel Rn Or [address] [place] [address] 03/03/2024 11:00 AM EST Office Visit Transplant Clinic, [place] [address] [place] [address] Narcisa Jones MD [address] [place] [phone] Samuel Schulz MD [address] [place] [address] Nurse Bryanna Renal Transplant [address] [place] [address] Yolanda Noonan LSW [address] [place] [address] 03/03/2024 3:00 PM EST Laboratory Outpatient Laboratory, [place] [address] [place] [phone] [facility] B1a [address] [place] [address] 06/09/2024 8:45 AM EDT Office Visit Urology, [address] [place] [address] Adolfo Tian MD [address] [place] [address] Health Maintenance Due Date Last Done Comments [...] Advance Directives occurred with: Patient Care Teams Buttonhole Maker Relationship Specialty Start Date End Date Fiona Novoa DO [address] [place] [address] PCP - General Family Medicine 10/04/15 documented as of this encounter
--- OUTSIDE RECORDS SUMMARY | 2024-03-17 22:10 | External Medical Summary | Summary of Care ---
Author Name Unknown Organization [facility] Address [address] [facility] [address] Phone [phone] Care Team Providers Care Paint Maker Name Role Phone Fiona Novoa DO Primary Care Provider [phone] Reason for Visit * Reason Onset Date Comments Medication Question 01/20/2024 Encounter Details Date Type Department Care Team (Late st Contact Info) Description 01/20/2024 Telephone NephrologyKris [address] [facility] [place] [address] Brooklyn Carpenter MD [address] [facility] [place] [address] Medication Question Allergies Active Allergy Reactions Criticality [...] hemoglobin A1c goal of less than 7.0% ([facility]) USE TO TEST BLOOD SUGAR UP TO 4 TIMES DAILY 300 Strip 3 01/07/20 23 024 Active FreeStyle Lizbeth 2 [place] DeviceIndications: Type 2 diabetes mellitus with hemoglobin A1c goal of less than 8.0% ([facility]) Use as directed. Dx E11.9 1 Each 1 01/15/20 23 Active Additional Information Patient not taking.Reported on 11/05/2023 FreeStyle Lizbeth 2 SensorIndications: Type 2 diabetes mellitus with hemoglobin A1c goal of less than 8.0% ([facility]) Use as directed. Dx E11.9 1 [...] mRNA, LNP-s, No Pre serve, 2-Dose Series ([employer]) 02/14/2021,06/30/2020,06/09/2020 Covid-19, Mrna, Lnp-s, Pf, B ivalent, 30 Mcg, IM, 12 yrs and above ([employer]) 01/23/2022 Hepatitis B, 20+ yrs 09/27/2020,03/28/2020 Pneumococcal [...] Recorded PHQ Adult Total Score 0 01/13/2024 [facility] of Occupat ional [facility] - Occupational Stress Questionnaire Answer Date [...] No 07/16/2018 9:55 PM EDT Summer Greenfield, MAIL CLERK BILLS * Are you blind or do you [...] No 07/16/2018 9:55 PM EDT Summer Greenfield MAIL CLERK BILLS * Because of a physical, mental, or [...] clarify >> pls review w/ jenni at [facility] if pt is/is not to be currently taking med * Telephone Encounter - Carmina Cantu RN - 01/20/2024 1:49 PM EST Call received from Jenni at [facility]. Pt was told this medication had been discontinued. RX signed by provider on 01/14/24. documented in this encounter Plan of Treatment Upcoming Encounters Date Type Department Care Team (Late st Contact Info) Description 01/29/2024 3:10 PM EST Home Visit Care Coordination and Integration [address] [place] [address] Cheryle Doe, Community Health Grease And Tallow Pumper [address] [place] [address] 03/03/2024 11:00 AM EST Office Visit Transplant Clinic, [place] [address] [place] [address] Narcisa Jones MD [address] [place] [phone] Samuel Schulz MD [address] [place] [address] Nurse Bryanna Renal Transplant [address] [place] [address] Yolanda Noonan LSW [address] [place] [address] 03/03/2024 3:00 PM EST Laboratory Outpatient Laboratory, [place] [address] [place] [phone] [facility] B1a [address] [place] [address] 06/09/2024 8:45 AM EDT Office Visit Urology, [address] [place] [address] Adolfo Tian MD [address] [place] [address] Health Maintenance Due Date Last Done Comments [...] Advance Directives occurred with: Patient Care Teams Paint Maker Relationship Specialty Start Date End Date Fiona Novoa DO [address] [place] [address] PCP - General Family Medicine 10/04/15 documented as of this encounter
--- OUTSIDE RECORDS SUMMARY | 2024-03-17 22:10 | External Medical Summary | Summary of Care ---
Author Name Unknown Organization [facility] Address [address] [place] [address] Phone [phone] Care Team Providers Care Clay Thrower Name Role Phone Fiona Novoa DO Primary Care Provider [phone] Reason for Referral * Evaluate & Treat - Unlimited Visits (Within 3 days (urgent)) - Authorized Specialty Diagnoses / Procedures Referred By Niko kulkarni Referred To Contact Otolaryngology Diagnoses Uses hearing aid Fiona Novoa DO [address] [place] [address] Phone: tel: fax: Referral ID Status Reason Start Date Expiration Date Visits Requested Visits Authorized [id number] Authorized Specialty Services Required 02/20/[phone] Question Answer Referral Priority Within 3 days (urgent) Where should this appointment be scheduled? [facility] Reason for Referral Other Using "other" may delay scheduling. Only use it if no appropriate choice exists. Acknowledge Please provide more details: Foreign body of left ear Reason for Visit * Reason Onset Date Comments Referral 02/20/2024 Encounter Details Date Type Department Care Team ([facility] st Contact Info) Description 02/20/2024 Telephone Family Practice [facility] [address] [place] [address] Fiona Novoa DO [address] [place] [address] Referral Allergies Active Allergy Reactions Criticality Noted Date [...] not taking.Reported on 01/29/2024 FreeStyle Lizbeth 2 [place] DeviceIndications: Type 2 diabetes mellitus with hemoglobin [...] mRNA, LNP-s, No Pre serve, 2-Dose Series ([employer]) 02/14/2021,06/30/2020,06/09/2020 Covid-19, Mrna, Lnp-s, Pf, B ivalent, [...] Recorded PHQ Adult Total Score 0 01/13/2024 [facility] - [facility]ational Stress Questionnaire [...] Summer Bray LPN documented in this encounter Miscellaneous Notes * Telephone Encounter - Katherin Martines LPN - 02/20/2024 8:48 AM EST Pt seen by ENT for acute foreign body of left ear. Pt needed referral placed. Referral placed as requested. documented in this encounter Plan of Treatment Upcoming Encounters Date Type Department Care Team (Late st Contact Info) Description 03/03/2024 11:00 AM EST Office Visit Transplant Clinic, [place] [address] [place] [address] Narcisa Jones MD [address] [place] [address] Samuel Schulz MD [address], [place] Nurse [facility] [address], [place] Yolanda Noonan LSW [address], [place] 03/03/2024 3:00 PM EST Laboratory Outpatient Laboratory, [place] [address] [facility] [place] [address] [place], Lab B1a [address] [place] [address] 06/09/2024 8:45 AM EDT Office Visit Urology, [facility] [address] [place] [address] Adolfo Tian MD [address] [place] [address] Scheduled Referrals Name Type Priority Associated Diagnoses [...] as of this encounter Visit Diagnoses Diagnosis Uses hearing aid- Primary documented in this encounter Advance Directives * Full Code (Latest Code Status on File) Date Activated Date Inactivated Comments 07/17/2018 1:29 AM 07/18/2018 10:02 PM This order re flects the patients wishes and were consensually agreed upon. Question Answer Comments Discussion of Advance Directives occurred with: Patient Care Teams Clay Thrower Relationship Specialty Start Date End Date Fiona Novoa DO [address] [facility] [place] [address] PCP - General Family Medicine 10/04/15 documented as of this encounter
--- OUTSIDE RECORDS SUMMARY | 2024-03-17 22:10 | External Medical Summary ---
Author Name Unknown Address Unknown Organization : Laboratory Report Ordering Provider Test Date Status RUKHSANA WHITLOCK 12/31/2023 09:39:23 Final Observation Date Value Abnormality Reference (Units ) Status Glucose Point of Care 12/31/2023 09:39:23 103 70-120 (mg/dL) Final Performing Location
--- OUTSIDE RECORDS SUMMARY | 2024-03-17 22:11 | External Medical Summary | Summary of Care ---
Author Name Unknown Organization [facility] Address [address] [place] [address] Phone [phone] Care Team Providers Care Clinical Educator Name Role Phone KaydenFiona mooney Primary Care Provider [phone] Reason for Visit * Reason Onset Date Comments Advice 12/26/2023 Encounter Details Date Type Department Care Team (Late st Contact Info) Description 12/26/2023 Telephone Vascular Surg [facility] [address] [place] [address], [place] [phone] Huy Zapien MD [address] [place] [address] Advice Allergies Active Allergy Reactions [...] hemoglobin A1c goal of less than 7.0% ([facility]) USE TO TEST BLOOD SUGAR UP TO 4 TIMES DAILY 300 Strip 3 01/06/2023 4 Active OneTouch Delica Plus [id number] USE UP TO 4 TIMES A DAY 100 Each 5 01/06/2023 4 Active FreeStyle Lizbeth 2 [place] DeviceIndications:Ty pe 2 diabetes mellitus with hemoglobin [...] Recorded PHQ Adult Total Score 0 04/24/2022 [facility] - Occupational Stress Questionnaire [...] encounter Miscellaneous Notes * Telephone Encounter - Alexandra Foote PA-C [...] PM EDT Message received from Lenora at [facility] Good Afternoon, I am emailing regarding a [...] a potential CVC exchange. He would prefer [facility] but would be willing to go to [place]. Please let us know if you need any other information from us. I have attached data from his treatments regarding his BFR not meeting prescription. Thanks! Lenora Hawk, [facility] [address] [place] [address] [phone] documented in this encounter Plan of Treatment Upcoming Encounters Date Type Department Care Team (Latest Contact Info) Description 12/31/2023 10:50 AM EDT Hospital Encounter OR [facility], OPERATING ROOM [facility], [facility] [address] [place] [phone] Brian Long MD [address], [place] [phone] 12/31/2023 10:50 AM EDT - 12/31/2023 12:10 PM EDT Surgery OR C, OPERATING ROOM [facility], [facility] [address] [place] [phone] Brian Long MD [address] [place] [address] REPLACEMENT COMPLETE TUNNELED CENTRAL CATHETER NO PORT 03/03/2024 11:00 AM EST Office Visit Transplant Clinic, [place] [address] [place] [address] Narcisa Jones MD [address] [place] [address] Samuel Schulz MD [address] [place] [address] [place], Nurse Renal Transplant [address] [place] [address] Yolanda Noonan, WATER SYSTEMS DESIGNER [address] [place], [place] [phone] 03/03/2024 3:00 PM EST Laboratory Outpatient Laboratory, [place] [address] [place] [address] [place], Lab B1a [address] [place], [place] [id number] 06/09/2024 8:45 AM EDT Office Visit Urology, [facility] [address] [facility] [place] [address] Adolfo Tian MD [address] [place] [address] Scheduled Procedures Name Priority Associated Diagnoses [...] Advance Directives occurred with: Patient Care Teams Clinical Educator Relationship Specialty Start Date End Date Fiona Novoa DO [address] [place] [address] PCP - General Family Medicine 10/04/15 documented as of this encounter
--- OUTSIDE RECORDS SUMMARY | 2024-03-17 22:11 | External Medical Summary | Summary of Care ---
Author Name Unknown Organization [facility] Address [address] [facility] [place] [address] Phone [phone] Care Team Providers Care Mine Car Dispatcher Name Role Phone Fiona Novoa DO Primary Care Provider [phone] Reason for Visit * Reason Onset Date Comments Appointment 09/16/2023 Encounter Details Date Type Department Care Team (Late st Contact Info) Description 09/16/2023 Telephone Cardiology, [facility] [address] [place] [address] Gennaro Ace, PAJessieC [address] [place] [address] Appointment Allergies Active Allergy Reactions Criticality Noted Date Comments Charlie Inhibitors 11/06/2018 Sitagliptin Other (Please comment) 02/22/2015 lightheadedness Statins High 11/06/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 Wound Dressing Adhesive 11/12/2023 TAPE-- SKIN TEARS documented as of this encounter (statuses as of 12/16/2023) Medications Medication Sig Dispensed Refills Start Date [...] 3 01/06/2023 4 Active OneTouch Delica Plus [id number] USE UP TO 4 TIMES A DAY 100 Each 5 01/06/2023 4 Active FreeStyle Lizbeth 2 [place] DeviceIndications:Ty pe 2 diabetes mellitus with hemoglobin [...] with snacks 450 Capsule 6 08/30/2023 Active documented as of this encounter (statuses as of 12/16/2023) Active Problems Problem Noted Date Diagnosed Date [...] as of this encounter (statuses as of 12/16/2023) Resolved Problems Problem Noted Date Diagnosed Date [...] as of this encounter (statuses as of 12/16/2023) Immunizations Name Administration Dates Next Due COVID-19 mRNA, LNP-s, No Pre serve, 2-Dose Series ([employer]) 02/14/2021,06/30/2020,06/09/2020 Covid-19, Mrna, Lnp-s, Pf, B ivalent, 30 Mcg, IM, 12 yrs and above (Pfizer) 01/23/2022 Hepatitis B, 20+ yrs 09/27/2020,03/28/2020 Pneumococcal Conjugate Vacc, 13 Valent (Prevnar) 10/04/2015 Pneumococcal Polysaccharide PPV23 (Pneumovax) 10/07/2013,05/12/2008 Season Influenza, Quad, PF, Adjuvanted, 65+ Yrs, IM (FLUAD) 11/30/2019 Seasonal Influenza Virus Vac cine, Unspecified Formulation 11/30/2019,12/26/2018,12/05/2017,01/07,01/24/2016,12/14/2013,01/19/2013 ,11/21/2011,12/05/2010,01/24/2010 Seasonal Influenza, PF, 6 M & above, IM , (FluLaval or Fluzone) 12/05/2017,01/07/2017 Seasonal Influenza, Quadriva lent Hd (Fluzone Hd) 11/15/2022,01/19/2021 Seasonal Influenza, Quadriva lent, No Preserve, IM 01/24/2016,02/22/2015 Seasonal Influenza, Trivalen t, (IIV3), with Preserv, (Fluzone) 12/14/2013,01/19/2013,11/21/2011,12/05,01/24/2010 Seasonal Influenza, Trivalen t, Adjuvanted, 65+ YRS, PF, (Fluad) 12/13/2021,12/26/2018 TDAP (age 10 and older)(Boostrix) 09/17/2019 TDAP, Age 7 and older, IM (Adacel) 05/12/2008 Zoster Vaccine Recombinant (Shingrix) 05/23/2021 ,03/07/2020 documented as of this encounter Social History Tobacco Use Types Packs/Day Years Used Date Smoking Tobacco: Former Cigarettes 0.8 50 0 03/18/1959 - 03/18/2009 Smokeless Tobacco: Never Comments:smokes occasional c igarette [...] Recorded PHQ Adult Total Score 0 04/24/2022 [facility] [place] of Occupat ional Health - Occupational Stress [...] encounter Miscellaneous Notes * Telephone Encounter - Pablo Swenson, MICK - 09/16/2023 12:50 PM EDT Images from the original note were not included. Received message to [facility]udle testing in 2023. Patient is ordered a: ECHO, COMPLETE (2D), TRANS-THORACIC [[id number]] (Order [id number]) NM MYOCARD PERF IMG SPECT MULT STUDIES WITH PHARM INTERV [56741.02] (Order [id number] More Tian, RN P [facility] Cardiology Scheduling Pool/Class; More Tian, RN Please schedule an echo and stress at [facility] in Nov 2023 on a Tue or Thur And then cards appt in Dec 2023 at [facility] with with Gennaro [place] on a Sat or For annual transplant testuing and clearance. More Tian RN documented in this encounter Plan of Treatment Upcoming Encounters Date Type Department Care Team (Late st Contact Info) Description 12/26/2023 11:00 AM EDT Office Visit Cardiology, [facility] [address] [facility] [place] [address] Gennaro Ace PA-C [address] [facility] [place] [address] 03/03/2024 11:00 AM EST Office Visit Transplant Clinic, [place] [address] [place] [address] Narcisa Jones MD [address] [place] [phone] Samuel Schulz MD [address] [place] [address] Nurse [facility] [address] [place] [address] Yolanda Noonan LSW [address] [place] [address] 03/03/2024 3:00 PM EST Laboratory Outpatient Laboratory, [place] [address] [place] [phone] [place] Lab B1a [address] [place] [address] 06/09/2024 8:45 AM EDT Office Visit Urology, [facility] [address] [facility] [place] [address] Adolfo Tian MD [address] [place] [address] Health Maintenance Due Date Last Done Comments [...] Advance Directives occurred with: Patient Care Teams Mine Car Dispatcher Relationship Specialty Start Date End Date Fiona Novoa DO [address] [place] [address] PCP - General Family Medicine 10/04/15 documented as of this encounter
--- OUTSIDE RECORDS SUMMARY | 2024-03-17 22:11 | External Medical Summary | Summary of Care ---
Author Name Unknown Organization [facility] Address [address] [place] [address] Phone [phone] Care Team Providers Care Senior Pensions Administrator Name Role Phone Bright Fiona Lottie CARTER Primary Care Provider [phone] Encounter Details Date Type Department Care Team (Late st Contact Info) Description 12/12/2023 Orders Only Unspecified Department Mike Lomas MD [address] [place] [address] Allergies Active Allergy Reactions Criticality Noted Date Comments Charlie Inhibitors 11/06/2018 Sitagliptin Other (Please comment) 02/22/2015 lightheadedness Statins High 11/06/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 Wound Dressing Adhesive 11/12/2023 TAPE-- SKIN TEARS documented as of this encounter (statuses as of 12/12/2023) Medications Medication Sig Dispensed Refills Start Date [...] 3 01/06/2023 4 Active OneTouch Delica Plus [id number] USE UP TO 4 TIMES A DAY 100 Each 5 01/06/2023 4 Active FreeStyle Lizbeth 2 [place] DeviceIndications:Ty pe 2 diabetes mellitus with hemoglobin [...] as of this encounter (statuses as of 12/12/2023) Active Problems Problem Noted Date Diagnosed Date [...] as of this encounter (statuses as of 12/12/2023) Resolved Problems Problem Noted Date Diagnosed Date [...] as of this encounter (statuses as of 12/12/2023) Immunizations Name Administration Dates Next Due COVID-19 mRNA, LNP-s, No Pre serve, 2-Dose Series ([employer]) 02/14/2021,06/30/2020,06/09/2020 Covid-19, Mrna, Lnp-s, Pf, B ivalent, 30 Mcg, IM, 12 yrs and above ([employer]) 01/23/2022 Hepatitis B, 20+ yrs 09/27/2020,03/28/2020 Pneumococcal [...] Recorded PHQ Adult Total Score 0 04/24/2022 [facility] [place] of Occupat ional Health - Occupational Stress [...] No 07/16/2018 documented as of this encounter Plan of Treatment Upcoming Encounters Date Type Department Care Team (Late st Contact Info) Description 12/26/2023 11:00 AM EDT Office Visit Cardiology, [facility] [address] [place] [address] Gennaro Ace PAJessieC [address] [place] [address] 03/03/2024 11:00 AM EST [facility] [address] [place] [address] Narcisa Jones MD [address] [place] [address] Samuel Schulz MD [address] [place] [address] Nurse [facility] [address] [place] [address] Yolanda Noonan, BOOK SALESMAN [address], [place] [phone] 03/03/2024 3:00 PM EST Laboratory Outpatient Laboratory, [place] [address] [place] [address] [place], Lab B1a [address] [place], [place] [phone] 06/09/2024 8:45 AM EDT Office Visit Urology, [facility] [address] [facility] [place] [address] Adolfo Tian MD [address] [place] [id number] Health Maintenance Due Date Last Done Comments [...] Procedure Name Priority Date/Time Associated Diagnosis Comments NM MYOCARDIAL PERFUSION IMAGING SPECT MULTIPLE STUDIES WITH PHARMACOLOGIC INTERVENTION Routine 12/12/2023 11:02 AM EDT documented in this encounter Results * NM MYOCARDIAL PERFUSION IMAGING SPECT MULTIPLE STUDIES WITH PHARMACOLOGIC INTERVENTION (12/12/2023 11:02 AM EDT) 12/12/2023 11:0 2 AM EDT Mike Lomas MD [facility] documented in this encounter Advance Directives * Full Code (Latest Code Status on File) Date Activated Date Inactivated Comments 07/17/2018 1:29 AM 07/18/2018 10:02 PM This order re flects the patients wishes and were consensually agreed upon. Question Answer Comments Discussion of Advance Directives occurred with: Patient Care Teams Senior Pensions Administrator Relationship Specialty Start Date End Date Fiona Novoa DO [address] [place] [address] PCP - General Family Medicine 10/04/15 documented as of this encounter
--- OUTSIDE RECORDS SUMMARY | 2024-03-17 22:11 | External Medical Summary ---
Author Name Unknown Address Unknown Organization K01:LABORATORY [facility] - [address] [place] [address] Laboratory Report Ordering Provider Test Date Status NEW GUALLPA 11/05/2023 10:54:48 Final Observation Date Value Abnormality Reference (Units ) Status MYCODE SPECIMEN-SST 11/05/2023 10:54:48 Freezing of extracted DNA, whole blood and/or serum. Final Performing Location LAB[facility]ATORY [facility] - [address] [place] [address]
--- OUTSIDE RECORDS SUMMARY | 2024-03-17 22:11 | External Medical Summary | Summary of Care ---
Author Name Unknown Organization [facility] Address [address] [place] [address] Phone [phone] Care Team Providers Care Senior Revenue Accountant Name Role Phone Fiona Novoa DO Primary Care Provider [phone] Reason for Visit * Reason Comments Follow Up Pre-op Clearance Annual transplant sc reening Encounter Details Date Type Department Care Team (Late st Contact Info) Description 12/26/2023 11:00 AM EDT Office Visit Cardiology, [facility] [address] [place] [address] Gennaro Ace PASatinder [address] [place] [id number] Pre-transplant evaluation for kidney transplant*; Persistent atrial fibrillation (HCC); HTN, goal below 140/90; LAFB (left anterior fascicular block); Dyslipidemia, goal LDL below 70; Mixed hyperlipidemia; ESRD on dialysis (HCC) Allergies Active Allergy Reactions Criticality Noted Date Comments Charlie Inhibitors 11/06/2018 Sitagliptin Other (Please comment) 02/22/2015 lightheadedness Statins High 11/06/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 Wound Dressing Adhesive 11/12/2023 TAPE-- SKIN TEARS documented as of this encounter (statuses as of 12/27/2023) Medications Medication Sig Dispensed Refills Start Date [...] 3 01/06/2023 4 Active OneTouch Delica Plus [id number] USE UP TO 4 TIMES A DAY 100 Each 5 01/06/2023 4 Active FreeStyle Lizbeth 2 [place] DeviceIndications:Ty pe 2 diabetes mellitus with hemoglobin [...] as of this encounter (statuses as of 12/27/2023) Active Problems Problem Noted Date Diagnosed Date [...] as of this encounter (statuses as of 12/27/2023) Resolved Problems Problem Noted Date Diagnosed Date Resolved Date Disorder of parathyroid gland 04/03/2023 04/03/2023 Food insecurity 10/24/2020 03/02/2021 Overview: Per [facility] Protocol DM type 2 nursing care encounter 03/16/2020 07/04/2023 Overview: duplicate History of anemia 09/17/2019 11/07/2020 History of gastrointestinal hemorrhage 11/06/2018 07/23/2019 Overview: Historical. Leg weakness, bilateral 07/17/201810/17 Hypertensive kidney disease with CKD stage IV 05/06/1911/07/2020 Deviated nasal septum 11/02/20162020 Hypertrophy of both [...] Modified per HTN Taxonomy. Mixed dyslipidemia 05/12/2008 12/08/200 9 Overview: Per Lipid Taxonomy. Anxiety state 05/12/2008 10/31/2017 High potassium 09/17/2019 documented as of this encounter (statuses as of 12/27/2023) Immunizations Name Administration Dates Next Due COVID-19 mRNA, LNP-s, No Pre serve, 2-Dose Series ([facility]) 02/14/2021,06/30/2020,06/09/2020 Covid-19, Mrna, Lnp-s, Pf, B ivalent, [...] Recorded PHQ Adult Total Score 0 [facility]20[facility]ational Stress Questionnaire Answer [...] Sign Reading Time Taken Comments Blood Pressure 196/86 12/26/2023 11:03 AM EDT Pulse 72 12/26/2023 11:03 AM EDT Temperature - - Respiratory Rate 12 12/26/2023 11:03 AM EDT Oxygen Saturation - - Inhaled Oxygen Concentration - - Weight 73.3 kg (161 lb 8 oz) 12/26/2023 11:03 AM EDT Height - - Body Mass Index 23.65 08/20/2023 10:18 AM EDT documented in this encounter Functional [...] No 07/16/2018 documented as of this encounter Progress Notes * Gennaro Ace PA-C - 12/26/2023 11:00 AM EDT History of Present Illness: Galen Jack is a 78-year-old male who returns today for routine cardiology follow-up. Accompanied by daughter. Undergoing hemodialysis on MWF's at [facility] under the direction of Dr. Carpenter via a right subclavian Perm catheter. Listed at [facility] for kidney transplantation. No chest pain or discomfort. No unusual shortness of breath. No tachypalpitations. No peripheral edema. Dizziness resolved with Dr. Carpenter changed medications recently.No near syncope or syncope. No fevers or chills. No epistaxis, hemoptysis, melena, hematochezia, orhematuria. Problem List: Type 2 diabetes mellitus since age 39 End-stage renal disease, diabetic/hypertensive, on dialysis MWF Endovascular fistula placement 05/09/2021, had complications from anesthesia Status post right arm fistula placement, unsuccessful. Malfunctioning PermCath status post exchange, last on October 25, 2022 Chronic atrial fibrillation [id number] score of 4. 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 Hospitalization in August 2000 with acute respiratory failure with hypoxia secondary to pneumonia, UTI Patient Active Problem List Diagnosis Diverticulosis of [...] fibrillation (HCC) Gastroesophageal reflux disease without esophagitis Past Medical History: Diagnosis Date Anxiety state Benign neoplasm of colon Benign neoplasm of colon 07/23/2011 COLONOSCOPY FLEXIBLE PROXIMAL DIAGNOSTIC performed by EMELI NAVARRO at ENDOSCOPY [facility],HYPERPLASTIC POLYPS REPEAT COLONOSCOPY IN 5 YEARS Diverticulosis of colon DM type 2, goal A1c below 7 Dyslipidemia, goal to be determined ESRD on dialysis (HCC) 11/07/2020 TORIN (generalized anxiety disorder) 10/31/2017 HTN, goal below 140/90 Stage 5 chronic kidney disease not on chronic dialysis ([facility]) Past Surgical History: Procedure Laterality Date CARPAL TUNNEL SURGERY Right 2000 COLONOSCOPY THRU STOMA, W/BIOPSY 2005 3 polyps COLONOSCOPY, DIAGNOSTIC (RECTUM) 07/23/2011 COLONOSCOPY FLEXIBLE PROXIMAL DIAGNOSTIC performed by EMELI NAVARRO at ENDOSCOPY [facility],HYPERPLASTIC POLYPS REPEAT COLONOSCOPY IN 5 YEARS COLONOSCOPY, DIAGNOSTIC (RECTUM) 10/19/2016 adenomatous polyp, diverticulosis, repeat 5 yrs/[facility] COLONOSCOPY, DIAGNOSTIC (RECTUM) 07/28/2018 adenomatous polyps, diverticulosis, fair prep, repeat 1 yr/[facility] COLONOSCOPY, DIAGNOSTIC (RECTUM) 06/08/2020 diverticulosis / [facility] EGD, FLEXIBLE, DIAGNOSTIC 11/28/2017 esophagitis, +H pylori / [facility] EGD, FLEXIBLE, DIAGNOSTIC 07/28/2018 duodenal erosion, gastritis, repeat 2 mo/[facility] EGD, FLEXIBLE, DIAGNOSTIC 11/03/2018 normal bx / [facility] EGD, FLEXIBLE, DIAGNOSTIC 01/11/2021 sm hiatal hernia / [facility] INFORMATION Right 2021 R arm fistula creation. INJECT DX/THER SUBSTANCE INTERLAMINAR LUMBAR/SACRAL W IMAGE GUIDE 03/01/2023 INJECTION SPINE LUMBAR OR SACRAL performed by Calvin Voss DO at OR [facility] INTRO CATH DIALYSIS CIRCUIT W/TRANSLUM BALLOON ANGIOPLASTY Right 02/22/2022 AV FISTULOGRAM & PERIPHERAL ANGIOPLASTY performed by Valdemar Nugent MD at OR [facility] REMOVE CATARACT, INSERT LENS PROSTH 2007 STRESS TEST 2003 normal per pt TRANSLUMINAL BALLOON ANGIOPLASTY CENTRAL DIALYSIS SEGMENT W/IMAGING Right 02/22/2022 ANGIOPLASTY CENTRAL DIALYSIS SEGMENT performed by Valdemar Nugent MD at OR [facility] Family History Problem Relation Name Age of Onset Diabetes Mother Cancer Mother breast cancer Diabetes Other on dad's side Diabetes Father Diabetes Sister No Known Problems Son Social History Socioeconomic History Marital status: Spouse [...] Social History Narrative Not on file Social Determinants of Health Financial Resource Strain: Not on file Food Insecurity: Food Insecurity Present (09/27/2020) Hunger Vital Sign Worried About Running Out of Food in the Last Year: Sometimes true Ran Out of Food in the Last Year: Not on file Transportation Needs: Not on file Social Connections: Unknown (12/26/2023) Social Connections How often do you feel lonely or isolated from those around you? (Adult - for ages 18 years and over): Not on file Housing Stability: Not on file . Lives with daughter. 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 Complete Review of Systems is as stated above, negative, or noncontributory. Review of patient's allergies indicates: Allergen Reactions Statins myopathy Charlie Inhibitors Januvia [Sitagliptin] Other (Please comment) lightheadedness Wound Dressing Adhesive TAPE-- SKIN TEARS Current Outpatient Medications Medication Sig Dispense Refill Cholecalciferol (VITAMIN D) 1000 UNIT Capsule Take 2 Capsules by mouth in the morning. CYANOCOBALAMIN (VITAMIN B-12) 100 MCG Tablet DAILY Vitamin C 100 MG Oral Tablet Take 1 Tablet by mouth in the morning. Ezetimibe 10 MG Oral Tablet (Zetia) Take 1 Tablet by mouth in the morning. 90 Tablet 3 Famotidine 20 MG Oral Tablet (Pepcid) take one tablet by mouth every other day 45 Tablet 1 Calcium Acetate (Phos Binder) 667 MG Oral Capsule (Phoslo) take 1 capsule by mouth with meals and 1capsule with snacks 450 Capsule 6 Losartan Potassium 25 MG Oral Tablet (Cozaar) take 2 tablets by mouth daily in the morning 60 Tablet 3 Metoprolol Succinate ER 25 MG Oral Tablet Extended Release 24 Hour (toPROL XL) Take 1/2 tablet by mouth after dialysis on Saturday, Saturday and Saturday 15 Tablet 0 OneTouch Verio In Vitro Strip (Glucose Blood) USE TO TEST BLOOD SUGAR UP TO 4 TIMES DAILY 300 Strip3 OneTouch Delica Plus [id number] USE UP TO 4 TIMES A DAY 100 Each 5 FreeStyle Lizbeth 2 [place] Device Use as directed. Dx E11.9 (Patient not taking: Reported on 11/05/2023) 1 Each 1 FreeStyle Lizbeth 2 Sensor Use as directed. Dx E11.9 (Patient not taking: Reported on 11/05/2023) 1 Each 5 No current facility-administered medications for this visit. PHYSICAL EXAMINATION: BP 196/86 (BP Site: Left Arm, BP Position: Sitting, BP Cuff Size: Regular) | Pulse 72 | Resp 12 | Wt 73.3 kg (161 lb 8 oz) | BMI 23.65 kg/m | BSA 1.89 m Blood pressure on my evaluation was 158/76 General: Alert and no distress. Hard of hearing Eyes: PER. Conjunctiva pink, sclera clear. HENT: Normocephalic. Atraumatic. Neck: No carotid bruits. No JVD. Heart: Irregularly irregular, 70 bpm. Grade I/ systolic murmur. No diastolic murmur. No rub. Lungs: Clear to auscultation. No wheeze. Abdomen: +BS. Soft. Nontender. No masses. No organomegaly. Extremities: No clubbing, cyanosis, or edema. Pulses: Posterior tibial=1/4. Limited neurological examination: No focal deficit. Data: [facility] 04/2021: Atrial Fibrillation occurred continuously (100% burden), ranging from 55-132 bpm (avg of 81 bpm). Isolated VEs were rare (<1.0%, 1825), VE Couplets were rare (<1.0%, 19), and VE Triplets were rare (<1.0%, 2). Ventricular Bigeminy and Trigeminy were present. December 12, 2023 TTE Interpretation Summary (as per Dr. Wilson): The LV wall thickness is moderately increased (concentric). The left ventricular wall motion is normal. The qualitative LV ejection fraction is 55-59% (normal). The left atrium is severely enlarged. Mild aortic valve regurgitationis present. Mild mitral regurgitation is present. Mild tricuspid regurgitation is present. Comparedto the report of the previous study dated 10/25/2022, mild aortic valve regurgitation and mild tricuspid regurgitation are now noted. December 12, 2023 Lexiscan Interpretation Summary (as per Dr. Wilson): The pharmacologic myocardial perfusion imaging study reveals normal resting and stress perfusion without evidence of scar or inducible ischemia. The stress EKG response is negative for ischemia. Persistent atrial fibrillationobserved throughout the study. Gated SPECT imaging reveals normal myocardial thickening and wall motion. The left ventricular ejection fraction was calculated to be 48 % (mildly reduced) however by visual qualitative assessment it was within normal limits in the range of 55-60%. Lipid Panel Results: Results for orders placed or performed in visit on 11/05/23 LIPID PANEL WITH DIRECT LDL IF TG IS HIGH Result Value Ref Range Triglycerides 127 <=174 mg/dL Cholesterol 224 (H) <200 mg/dL HDL Cholesterol 60 >39 mg/dL Non-HDL Cholesterol 164 (H) <=159 mg/dL LDL Cholesterol 139 (H) <=129 mg/dL December 26, 2023 EKG: Atrial fibrillation with a ventricular rate of 66 bpm. Left axis deviation. Old septal infarct pattern. QTc 423 ms. ASSESSMENT AND RECOMMENDATIONS/PLAN: Persistent atrial fibrillation. Rate controlled. Asymptomatic. Continue rate control. [id number] Score 5 points (age greater than 75, male, hypertension, aortic plaque, diabetes history). History of retroperitoneal bleed. Anticoagulation risks felt to be greater than benefit per documentation. Patient against anticoagulation. + Ambulatory dysfunction noted. Continue without anticoa gulation. Hypertension, with hypertensive heart disease, history of labile blood pressures. Blood pressure acceptable. Hyperlipidemia. Imaging with atherosclerotic changes of the aorta and coronary artery calcifications. History of statin induced myopathy. PCSK9 Inhibitor therapy declined. Continue ezetimibe 10 mg/day. End-stage renal disease, diabetic/hypertensive, on dialysis MWF. As per Nephrology. No overt cardiac contraindications to renal transplantation. Routine cardiology follow-up. ER with emergencies. Gennaro Ace PA-C. Department of Cardiology I spent a total of 30-39 minutes (exact time 30 mins) on the date of service in preparation, delivery, and documentation of the care provided to Galen Jack excluding any time spent in the performance of separately billed services. This visit involved medical care services related to at least one serious condition or complex condition requiring ongoing care. This chart was completed in part utilizing [employer] Voice Recognition Software. Grammatical errors, random word insertions, prounoun errors, and incomplete sentences are an occasional consequence of this system due to software limitations, ambient noise, and hardware issues. Any formal questions or concerns about the content, text, or information contained within the body of this dictation should be directly addressed to the provider for clarification. documented in this encounter Procedure Notes * Jaya Beasley MD - 12/26/2023 11:12 AM EDTAssociated Order(s): EKG REASON FOR STUDY: annual transplant screen;annual transplant CONCLUSIONS: Atrial fibrillation Left axis deviation Septal infarct (cited on or before 27-Dec-2022) Abnormal ECG When compared with ECG of 27-Dec-2022 07:53, No significant change was found Ventricular Rate: 66 Atrial Rate: 220 QRS Duration: 96 QT/QTc: 404/423 ms P-R-T [place]: 0 : -42 : 27 degrees documented in this encounter Nursing Notes * Jess Duffy CMA - 12/26/2023 10:55 AM EDT Chief Complaint Patient presents with Follow Up Pre-op Clearance Annual transplant screening Examination Room: 2 Name: Galen Jack Date of : (1945). Reason for Visit: f/u for annual transplant screen Interim Hospitalization(s): none Problems/Concerns: Previously had orthostatic lightheadedness, improved with medication. Denies other concerns. Chest Pain/SOB: Denies CP. Some SOB at times. [facility] Discussed: No My [facility] is a way you can talk to your provider online through e-mail. Would you like to sign up? I can activate it for you? DECLINES Patient was instructed to not get up on the exam table until directed and assisted by their provider; patient is to remain seated in the chair/ wheelchair/ exam table for fall prevention and safety reasons. Patient is aware to have assistance to step down off exam table with personnel. Patient voiced full comprehension of instructions. documented in this encounter Plan of Treatment Upcoming Encounters Date Type Department Care Team (Late st Contact Info) Description 03/03/2024 11:00 AM EST Office Visit Transplant Clinic, [place] [address], [place] [id number] Narcisa Jones MD [address] [place] [address] Samuel Schulz MD [address] [place] [address] Nurse Bryanna [facility] Trans[facility] [address] [place], [place] [id number] Yolanda Noonan LSW [address] [place] [address] 03/03/2024 3:00 PM EST Laboratory Outpatient Laboratory, [place] [address] [place] [address] [place], Lab B[address]a [address] [place] [address] 06/09/2024 8:45 AM EDT Office Visit Urology, [facility] [address] [facility] [place] [address] Adolfo Tian MD [address] [place] [address] Health Maintenance Due Date Last Done Comments [...] Procedure Name Priority Date/Time Associated Diagnosis Comments MD ECG ROUTINE ECG W/LEAST 12 LDS W/I&R Routine 12/26/2023 11:12 AM EDT Persistent atrial fibrillation (HCC) Pre-transplant evaluation for kidney transplant HTN, goal below 140/90 LAFB (left anterior fascicular block) Dyslipidemia, goal LDL below 70 Mixed hyperlipidemia ESRD on dialysis (HCC) documented in this encounter Results * EKG (12/26/2023 11:12 AM EDT) 12/26/2023 11:1 2 AM EDT Narrative Procedure Note Jaya Beasley MD - 12/26/2023 11:12 AM EDT REASON FOR STUDY: annual transplant screen;annual transplant CONCLUSIONS: Atrial fibrillation Left axis deviation Septal infarct (cited on or before 27-Dec-2022) Abnormal ECG When compared with ECG of 27-Dec-2022 07:53, No significant change was found Ventricular Rate: 66 Atrial Rate: 220 QRS Duration: 96 QT/QTc: 404/423 ms P-R-T [place]: 0 : -42 : 27 degrees Gennaro Ace PA-C EKG [facility] documented in this encounter Visit Diagnoses Diagnosis Pre-transplant evaluation for kidney transplant- Primary Other specified pre-operative examination Persistent atrial fibrillation (HCC) Atrial fibrillation HTN, goal below 140/90 Unspecified essential hypertension LAFB (left anterior fascicular block) Left bundle branch hemiblock Dyslipidemia, goal LDL below 70 Other and unspecified hyperlipidemia Mixed hyperlipidemia ESRD on dialysis (HCC) End stage renal disease documented in this encounter Advance Directives * Full Code (Latest Code Status on File) Date Activated Date Inactivated Comments 07/17/2018 1:29 AM 07/18/2018 10:02 PM This order re flects the patients wishes and were consensually agreed upon. Question Answer Comments Discussion of Advance Directives occurred with: Patient Care Teams Senior Revenue Accountant Relationship Specialty Start Date End Date Fiona Novoa DO [address] [place] [address] [place] [id number] PCP - General Family Medicine 10/04/15 documented as of this encounter"
--- OUTSIDE RECORDS SUMMARY | 2024-03-17 22:11 | External Medical Summary | Summary of Care ---
Author Name Unknown Organization [facility] Address [address] [facility] [place] [address] Phone [phone] Care Team Providers Care Grain Merchandising Manager Name Role Phone Nighat Novoa DO Primary Care Provider [phone] Reason for Visit * Reason Comments Medication Refill Encounter Details Date Type Department Care Team (Late st Contact Info) Description 11/13/2022 Refill Pharmacy, [facility] [address] [place] [address] Nighat Novoa DO [address] [place] [address] Type 2 diabetes mellitus with chronic kidney disease on chronic dialysis, without long-term current use of insulin (HCC) Allergies Active Allergy Reactions Criticality Noted Date Comments Charlie Inhibitors 11/06/2018 Sitagliptin Other (Please comment) 02/22/2015 lightheadedness 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 09/09/2014 Active CYANOCOBALAMIN (VITAMIN B-12) 100 MCG Tablet DAILY 10/27/2018 Active Vitamin C 100 MG Oral Tablet Take 1 Tablet by mouth in the morning. 06/29/2021 Active Carvedilol 6.25 MG Oral Tablet (Coreg)Indications:E ssential hypertension with goal blood pressure less than 140/90 Take by mouth 1 Tablet 2 times a day with morning and evening meals . 180 Tablet 3 06/29/2021 4 Discontinue d(Medicatio n List Clean Up) Insulin Pen Needle 32G X 6 MMIndications:Type 2 diabetes mellitus with chronic kidney disease on chronic dialysis, without long-term current use of insulin (HCC) Use to inject lantus insulin once daily 100 Each 3 07/10/2021 3 Discontinue d(Refill) Ferrous Sulfate 325 (65 Fe) MG Oral Tablet (Feosol) Take 1 Tablet by mouth in the morning and 1 Tablet before bedtime. 60 Tablet 11 08/22/2021 3 Discontinue d(Medicatio n List Clean Up) Vitamin E 134 MG (200 UNIT) Oral Tablet Take by mouth . 08/22/2021 3 Discontinue d(Medicatio n List Clean Up) Calcium Acetate (Phos Binder) 667 MG Oral Capsule (Phoslo) take one capsule by mouth with meals and one capsule with snacks 450 Capsule 3 06/04/2022 4 Discontinue d(Refill) Ezetimibe 10 MG Oral Tablet (Zetia)Indications:M ixed hyperlipidemia Take 1 Tablet by mouth in the morning. 90 Tablet 3 06/27/2022 4 Discontinue d(Refill) Famotidine 20 MG Oral Tablet (Pepcid) take one tablet by mouth every other day 45 Tablet 6 06/27/2022 4 Discontinue d(Refill) Losartan Potassium 25 MG Oral Tablet (Cozaar) take one tablet by mouth once daily 90 Tablet 3 07/30/2022 4 Discontinue d(Medicatio n/Dose Changed) Ciprofloxacin HCl 250 MG Oral Tablet (Cipro) Take 1 Tablet by mouth in the morning and 1 Tablet before bedtime. 80 Tablet 08/06/2022 3 Discontinue d(Medicatio n List Clean Up) Carvedilol 6.25 MG Oral Tablet (Coreg) TAKE ONE TABLET BY MOUTH TWICE DAILY 180 Tablet 6 09/17/2022 3 Discontinue d(Medicatio n List Clean Up) Lantus SoloStar 100 UNIT/ML Subcutaneous Solution Pen-injectorIndicati ons:Type 2 diabetes mellitus with chronic kidney disease on chronic dialysis, without long-term current use of insulin ([facility]) INJECT 10 UNITS UNDER THE SKIN EVERY NIGHT AT BEDTIME 15 mL 3 11/13/2022 4 Discontinue d(Medicatio n/Dose Changed) Insulin Pen Needle 32G X 6 MMIndications:Type 2 diabetes mellitus with chronic kidney disease on chronic dialysis, without long-term current use of insulin ([facility]) Use to inject lantus insulin once daily 100 Each 3 11/13/2022 4 Discontinue d(Medicatio n/Dose Changed) documented as of this encounter (statuses as of 11/07/2023) Active Problems Problem Noted Date Diagnosed Date [...] as of this encounter (statuses as of 11/07/2023) Resolved Problems Problem Noted Date Diagnosed Date [...] inactive term HTN, goal below 140/90 05/12/200801/21 /2009 Overview: Modified per HTN Taxonomy. Mixed dyslipidemia 05/12/2008 Overview: Per Lipid Taxonomy. Anxiety state 05/12/2008 10/31/2017 High potassium 09/17/2019 documented as of this encounter (statuses as of 11/07/2023) Immunizations Name Administration Dates Next Due COVID-19 [...] lent, No Preserve, IM 01/24/2016,02/22/2015 Seasonal Influenza, Split, I IV3, With Preserve, Inj 12/14/2013,01/19/2013,11/21/2011,12/05,01/24/2010 Seasonal Influenza, Trivalen t, Adjuvanted, 65+ yrs 12/13/2021,12/26/2018 TDAP (age 10 and older)(Boostrix) 09/17/2019 [...] Recorded PHQ Adult Total Score 0 04/24/2022 [facility] - Occupational Stress Questionnaire Answer Date [...] as of this encounter Miscellaneous Notes * Addendum Note - Desi Llanes [facility] - 11/07/2023 5:45 AM EDTAddended by: DESI LLANES on: 11/07/2023 05:45 AM Modules accepted: Orders * Telephone Encounter - Desi Llanes [facility] - 11/13/2022 8:50 AM EDTSigned Prescriptions: Disp Refills Lantus SoloStar 100 UNIT/ML Subcutaneous S*15 mL 3 Sig: INJECT 10 UNITS UNDER THE SKIN EVERY NIGHT AT BEDTIMEAuthorizing Provider: NIGHAT NOVOA User: DESI LLANES Insulin Pen Needle 32G X 6 MM 100 Ea*3 Sig: Use to inject lantus insulin once da ilyAuthorizing Provider: NIGHAT NOVOA User: DESI LLANES * Telephone Encounter - Desi Llanes [facility] - 11/13/2022 8:50 AM EDTSigned Prescriptions: Disp Refills Lantus SoloStar 100 UNIT/ML Subcutaneous S*15 mL 3 Sig: INJECT 10 UNITS UNDER THE SKIN EVERY NIGHT AT BEDTIMEAuthorizing Provider: NIGHAT NOVOA User: DESI LLANES Insulin Pen Needle 32G X 6 MM 100 Ea*3 Sig: Use to inject lantus insulin once da ilyAuthorizing Provider: NIGHAT NOVOA User: DESI LLANES * Telephone Encounter - Allison Chapa [facility] - 11/13/2022 8:48 AM EDT Pt is low. Did you pend patient's preferred pharmacy and medication before forwarding?yes Pharmacy: [facility] Pending Prescriptions: Disp Refills Lantus SoloStar 100 UNIT/ML Subcutaneous *15 mL 3 Sig: INJECT 10 UNITS UNDER THE SKIN EVERY NIGHT AT BEDTIME Insulin Pen Needle 32G X 6 MM 100 Ea*3 Sig: Use to inject lantus insulin once daily Last Visit: 10/23/2022 (in office), Visit date not found (telemedicine) Next Visit: 04/09/2023 If no future appointments scheduled, and last appointment is greater than a year ago, please schedule patient for a follow-up appointment Last date the medication was ordered: 07/10/21 Is this request for a controlled substance?No Urine Drug Screen:No results found. However, due to the size of the patient record, not all encounters were searched. Please check Results Review for a complete set of results. Patient Phone Numbers Labs: Lab Results Component Value Date/Time CREAT 5.4 (H) 03/20/2022 08:54 AM CREAT 3.9 (H) 03/01/2020 10:54 AM POTASSIUM 3.1 (L) 03/20/2022 08:54 AM POTASSIUM 5.2 (H) 03/01/2020 10:54 AM TSH 1.49 09/08/2020 08:58 AM TSH 1.31 11/06/2018 10:07 AM LDLCALC 124 09/28/2021 08:00 AM LDLCALC 147 (H) 03/01/2020 10:54 AM LDLDIRECT 140 (H) 09/17/2019 11:36 AM ALT 9 (L) 03/20/2022 08:54 AM ALT 16 03/01/2020 10:54 AM HGBA1C 6.8 (H) 03/20/2022 08:54 AM HGBA1C 7.0 (H) 03/01/2020 10:54 AM documented in this encounter Plan of Treatment Upcoming Encounters Date Type Department Care Team (Late st Contact Info) Description 11/26/2023 9:30 AM EDT Imaging Radiology [facility] [address] [place] [address] 12/12/2023 9:30 AM EDT Cardiac Studies Cardiac Studies, [facility] [address] [place] [address] 12/12/2023 10:30 AM EDT Imaging [facility] 2nd Floor Cardiology, [place] [address] [place] [phone] Gw, Excess Time Radiology [facility] [address] [place] [address] 12/26/2023 11:00 AM EDT Office Visit Cardiology, [facility] [address] [place] [address] Gennaro Ace PA-C [address] [place] [address] 06/09/2024 8:45 AM EDT Office Visit Urology, [facility] [address] [place] [address] Adolfo Tian MD [address] [place] [address] Scheduled Orders Name Type Priority Associated Diagnoses Orde r Schedule COMPREHENSIVE METABOLIC PANEL Lab Routine Type 2 diabetes mellitus with chronic kidney disease on chronic dialysis, without long-term current use of insulin (HCC) Ordered: 11/07/2023 Health Maintenance Due Date Last Done Comments Diabetic Eye Exam 12/26/2019 12/25/2018, , 12/27/2014, Additional history exists Hepatitis B Vaccine (3 of 3 - 19+ 3-dose series) 11/22/2020 09/27/2020, 03/28/2020 COVID-19 Vaccine (2022- season) 2022 01/23/2022, 02/14/2021, 06/30/2020, Additional history exists Adult Wellness Visit 04/24/2023 04/24/2022 Influenza Vaccine (FLU shot) (#1) 2023 11/15/2022, 12/13/2021, 01/19/2021, Additional history exists Diabetic Foot Exam 03/19/2024 03/19/2023, 1 03/25/2021, 02/01/2021, Additional history exists HbA1c 05/07/2024 11/05/2023, 12/0 09/2022, 03/20/2022, Additional history exists Depression Screening 11/04/2024 11/05/2023 DTaP,Tdap,and Td Vaccines (3 - Td or Tdap) 09/16/2029 09/17/2019, 05/12/2008 Pneumococcal Vaccine: 65+ Years Completed 10/04/2015, 10/07/2013, 05/12/2008 Colonoscopy Discontinued 06/08/2020, 07/16, 10/19/2016, Additional history exists RETIRED - COLONOSCOPY-ANNUAL AGES 18-100 Discontinued 06/08/2020, 07/28/2018, 10/19/2016, Additional history exists Lung Cancer Screening Completed 10/04/2022 , 10/03/2021, 04/11/2020 Nephrology Referral Discontinued 08/20/2023, 01/22/2013, 12/04/2011 HPV (Gardasil) Vaccine Aged Out No lo nger eligible based on patient's age to complete this topic MENINGOCOCCAL (MENACTRA/MENVEO) Aged Out No longer eligible based on patient's age to complete this topic documented as of this encounter Medical Devices Not on filedocumented as of this encounter Results * (ABNORMAL) LIPID PANEL WITH DIRECT LDL IF TG IS HIGH (11/05/2023 10:54 AM EDT) Triglycerides 127 <=174 mg/dL 11/05/2023 9:12 PM EDT [facility] Comment: Triglyceride Reference Ranges (mg/dL): <150 Acceptable 150-174 Borderline high 175-499 High >=500 Very high Cholesterol 224(H) <200 mg/dL 11/05/2023 9:12 PM EDT [facility] Comment: Total Cholesterol Reference Ranges (mg/dL): <200 Desirable 200-239 Borderline high >=240 High HDL Cholesterol 60 >39 mg/dL 9:12 PM EDT [facility] Comment: HDL Cholesterol Reference Ranges (mg/dL): >=60 High (Desirable) <50 Low (Undesirable) For Females <40 Low (Undesirable) For Males Non-HDL Cholesterol 164(H) <=159 mg/dL 11/05/2023 9:12 PM EDT [facility] Comment: Non-HDL Cholesterol Reference Range (mg/dL): <100 Target level for high risk ASCVD patient <130 Optimal for general population 130-159 Near optimal for general population 160-189 Borderline High 190-219 High >=220 Very High LDL Cholesterol 139(H) <=129 mg/dL 11/05/2023 9:12 PM EDT [facility] Comment: LDL Cholesterol Reference Ranges (mg/dL): <70 Target level for high risk ASCVD patient <100 Optimal for general population 100-129 Near optimal for general population 130-159 Borderline high 160-189 High >=190 Very high Blood Venous blood specimen / Unknown Venipuncture / Unknown 11/05/2023 10:54 AM EDT 11/05/2023 10:54 AM EDT Desi Llanes [facility] LAB BLOOD ORDERA BLES [facility] [address] [place] [address] documented in this encounter Visit Diagnoses Diagnosis Type 2 diabetes mellitus with chronic kidney disease on chronic dialysis, without long-term current use of insulin (HCC) documented in this encounter Advance Directives * Full Code (Latest Code Status on File) Date Activated Date Inactivated Comments 07/17/2018 1:29 AM 07/18/2018 10:02 PM This order re flects the patients wishes and were consensually agreed upon. Question Answer Comments Discussion of Advance Directives occurred with: Patient Care Teams Grain Merchandising Manager Relationship Specialty Start Date End Date Nighat Novoa DO [address] [place] [address] PCP - General Family Medicine 10/04/15 documented as of this encounter
--- OUTSIDE RECORDS SUMMARY | 2024-03-17 22:11 | External Medical Summary | Summary of Care ---
Author Name Unknown Organization [facility] Address [address] [place] [address] Phone [phone] Care Team Providers Care Patternmaker Wood Name Role Phone KaydenFiona mooney Primary Care Provider [phone] Reason for Visit * Reason Onset Date Comments Advice 12/26/2023 Encounter Details Date Type Department Care Team (Late st Contact Info) Description 12/26/2023 Telephone Vascular Surg [facility] [address], [place] [id number] Huy Zapien MD [address] [place] [address] Advice Allergies Active Allergy Reactions [...] hemoglobin A1c goal of less than 7.0% ([facility]) USE TO TEST BLOOD SUGAR UP TO 4 TIMES DAILY 300 Strip 3 01/06/2023 4 Active OneTouch Delica Plus [id number] USE UP TO 4 TIMES A DAY 100 Each 5 01/06/2023 4 Active FreeStyle Lizbeth 2 [place] DeviceIndications:Ty pe 2 diabetes mellitus with hemoglobin [...] Recorded PHQ Adult Total Score 0 04/24/2022 [facility] [...] PM EDT Message received from Lenora at [facility] Good Afternoon, I am emailing regarding [...] a potential CVC exchange. He would prefer [facility] but would be willing to go to [place]. Please let us know if you need any other information from us. I have attached data from his treatments regarding his BFR not meeting prescription. Thanks! Lenora Hawk, [facility] [address] [place] [address] [phone] documented in this encounter Plan of Treatment Upcoming Encounters Date Type Department Care Team (Late st Contact Info) Description 03/03/2024 11:00 AM EST Office Visit Transplant Clinic, [place] [address], [place] [id number] Narcisa Jones MD [address] [place] [address] Samuel Schulz MD [address] [place] [address] Nurse [facility] [address] [place] [address] Yolanda Noonan, MAGNETIC PROSPECTOR [address] [place] [address] 03/03/2024 3:00 PM EST Laboratory Outpatient Laboratory, [place] [address] [place] [phone] [place], Lab B1a [address] [place] [address] 06/09/2024 8:45 AM EDT Office Visit Urology, [facility] [address] [facility] [place] [address] Adolfo Tian MD [address] [place] [address] Health Maintenance Due Date Last Done Comments [...] 02/01/2021, Additional history exists HbA1c 05/07/2024 11/05/2023, 12/09/2022, 03/20/2022, Additional history exists Depression Screening 11/04/2024 [...] Advance Directives occurred with: Patient Care Teams Patternmaker Wood Relationship Specialty Start Date End Date Fiona Novoa DO [address] [place] [address] PCP - General Family Medicine 10/04/15 documented as of this encounter
--- OUTSIDE RECORDS SUMMARY | 2024-03-17 22:11 | External Medical Summary | Summary of Care ---
Author Name Unknown Organization [facility] Address [address] [facility] [address] Phone [phone] Care Team Providers Care Loading Unit Operator Crimping Name Role Phone Fiona Novoa DO Primary Care Provider [phone] Reason for Visit * Reason Comments Outpatient Testing Encounter Details Date Type Department Care Team (Late st Contact Info) Description 11/05/2023 10:50 AM EDT Laboratory Laboratory, [facility] [address] [facility] [place] [phone] [facility] [address] [facility] [place] [address] Type 2 diabetes mellitus with chronic kidney disease on chronic dialysis, without long-term current use of insulin ([facility]); Acute cystitis without hematuria; History of UTI; Elevated prostate specific antigen (PSA); [employer] Other*[id number]; Type 2 diabetes mellitus with chronic kidney disease on chronic dialysis, with long-term current use of insulin ([facility]) Allergies Active Allergy Reactions Criticality Noted Date Comments Charlie Inhibitors 11/06/2018 Sitagliptin Other (Please comment) 02/22/2015 lightheadedness Statins 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/06/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 documented as of this encounter (statuses as of 11/05/2023) Medications Medication Sig Dispensed Refills Start Date [...] 3 01/06/2023 4 Active OneTouch Delica Plus [id number] USE UP TO 4 TIMES A DAY 100 Each 5 01/06/2023 4 Active FreeStyle Lizbeth 2 [place] DeviceIndications:Ty pe 2 diabetes mellitus with hemoglobin [...] the morning 60 Tablet 3 10/11/2023 Active documented as of this encounter (statuses as of 11/05/2023) Active Problems Problem Noted Date Diagnosed Date [...] as of this encounter (statuses as of 11/05/2023) Resolved Problems Problem Noted Date Diagnosed Date [...] as of this encounter (statuses as of 11/05/2023) Immunizations Name Administration Dates Next Due COVID-19 mRNA, LNP-s, No Pre serve, 2-Dose Series (Factorli) 02/14/2021,06/30/2020,06/09/2020 Covid-19, Mrna, Lnp-s, Pf, B ivalent, [...] Recorded PHQ Adult Total Score 0 04/24/2022 [facility] - Occupational Stress [...] Team (Late st Contact Info) Description 12/12/2023 9:30 AM EDT Cardiac Studies Cardiac Studies, [facility] [address] [facility] [place] [address] 12/12/2023 10:30 AM EDT Imaging [facility] 2nd Floor Cardiology, [place] [address] [place] [phone] Gw, Excess Time Radiology [address] [place] [address] 12/26/2023 11:00 AM EDT Office Visit Cardiology, [facility] [address] [facility] [place] [address] Gennaro Ace PA-C [address] [place] [address] 06/09/2024 8:45 AM EDT Office Visit [facility]rology, [facility] [place] [address] Adolfo Tian MD [address] [place] [address] Pending Results Name Type Priority Associated Diagnoses Date /Time LIPID PANEL WITH DIRECT LDL IF TG IS HIGH Lab Routine Type 2 diabetes mellitus with chronic kidney disease on chronic dialysis, without long-term current use of insulin ([facility]) 11/05/2023 10:54 AM EDT PSA Lab Routine Acute cystitis without hematuria History of UTI Elevated prostate specific antigen (PSA) 11/05/2023 10:54 AM EDT MYCODE SUBSEQUENT ADULT Lab Routine [employer] Other*[id number] 11/05/2023 10:54 AM EDT HEMOGLOBIN A1C Lab Routine Type 2 diabetes mellitus with chronic kidney disease on chronic dialysis, with long-term current use of insulin (HCC) 11/05/2023 10:54 AM EDT MYCODE SST1 Lab Routine [employer] Other*[id number] 11/05/2023 10:54 AM EDT MYCODE SST2 Lab Routine [employer] Other*[id number] 11/05/2023 10:54 AM EDT Health Maintenance Due Date Last Done Comments Diabetic Eye Exam 12/26/2019 12/25/2018, , 12/27/2014, Additional history exists Hepatitis B Vaccine (3 of 3 - 19+ 3-dose series) 11/22/2020 09/27/2020, 03/28/2020 COVID-19 Vaccine (2022- season) 2022 01/23/2022, 02/14/2021, 06/30/2020, Additional history exists Adult Wellness Visit 04/24/2023 04/24/2022 HbA1c 08/23/2023 02/21/2023, 05/2022, 01/23/2022, Additional history exists Influenza Vaccine (FLU shot) (#1) 2023 11/15/2022, 12/13/2021, 01/19/2021, Additional history exists Diabetic Foot Exam 03/19/2024 03/19/2023, 1 03/25/2021, 02/01/2021, Additional history exists Depression Screening 11/04/2024 11/05/2023, 04/24/19 DTaP,Tdap,and Td Vaccines (3 - Td or [...] as of this encounter Visit Diagnoses Diagnosis Type 2 diabetes mellitus with chronic kidney disease on chronic dialysis, without long-term current use of insulin (HCC) Acute cystitis without hematuria Acute cystitis History of UTI Personal history of urinary (tract) infection Elevated prostate specific antigen (PSA) [employer] Research Other*[id number] Type 2 diabetes mellitus with chronic kidney disease on chronic dialysis, with long-term current use of insulin (HCC) documented in this encounter Advance Directives * Full Code (Latest Code Status on File) Date Activated Date Inactivated Comments 07/17/2018 1:29 AM 07/18/2018 10:02 PM This order re flects the patients wishes and were consensually agreed upon. Question Answer Comments Discussion of Advance Directives occurred with: Patient Care Teams Loading Unit Operator Crimping Relationship Specialty Start Date End Date Fiona Novoa DO [address] [place] [address] PCP - General Family Medicine 10/04/15 documented as of this encounter
--- OUTSIDE RECORDS SUMMARY | 2024-03-17 22:11 | External Medical Summary | Summary of Care ---
Author Name Unknown Organization [facility] Address [address] [place] [address] Phone [phone] Care Team Providers Care Materials Branch Chief Name Role Phone KaydenalbayukiFiona Primary Care Provider [phone] Reason for Referral * Precert (Within 10 days (routine)) - Pending Review Specialty Diagnoses / Procedures Referred By Niko kulkarni Referred To Contact Radiology Diagnoses ESRD on dialysis (HCC) Pre-transplant evaluation for ESRD (end stage renal disease) Procedures CT ABD/PELVIS WO IV/ORAL CONTRAST Mike Lomas MD [address] [place] [address] Referral ID Status Reason Start Date Expiration Date V isits Requested Visits Authorized [id number] Pending Review 02/18/2024 999 999 Reason for Visit * Reason Onset Date Comments Information 11/27/2023Mar 10 Encounter Details Date Type Department Care Team (Late st Contact Info) Description [facility]/27[facility] [address], [place] [id number] More Tian, ANNE MARIE [facility] [place] [address] Information (Mar 10) Allergies Active Allergy Reactions Criticality Noted Date Comments Charlie Inhibitors 11/06/2018 Sitagliptin Other (Please comment) 02/22/2015 lightheadedness Statins High 11/06/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 Wound Dressing Adhesive 11/12/2023 TAPE-- SKIN TEARS documented as of this encounter (statuses as of 11/27/2023) Medications Medication Sig Dispensed Refills Start Date [...] 3 01/06/2023 4 Active OneTouch Delica Plus [id number] USE UP TO 4 TIMES A DAY 100 Each 5 01/06/2023 4 Active FreeStyle Lizbeth 2 [place] DeviceIndications:Ty pe 2 diabetes mellitus with hemoglobin [...] as of this encounter (statuses as of 11/27/2023) Active Problems Problem Noted Date Diagnosed Date [...] as of this encounter (statuses as of 11/27/2023) Resolved Problems Problem Noted Date Diagnosed Date [...] as of this encounter (statuses as of 11/27/2023) Immunizations Name Administration Dates Next Due COVID-19 mRNA, LNP-s, No Pre serve, 2-Dose Series ([employer]) 02/14/2021,06/30/2020,06/09/2020 Covid-19, Mrna, Lnp-s, Pf, B ivalent, [...] 0 04/24/2022 [facility] - Occupational Stress Questionnaire Answer Date [...] encounter Miscellaneous Notes * Telephone Encounter - More Tian RN - 11/27/2023 10:45 AM EDT Patient is due in Mar 10 for annual with transplant with labs, CXR and CT ab pelvis. More Tian RN documented in this encounter Plan of Treatment Upcoming Encounters Date Type Department Care Team (Late st Contact Info) Description 12/12/2023 9:30 AM EDT Cardiac Studies Cardiac Studies, [facility] [address] [place] [address] 12/12/2023 10:30 AM EDT Imaging [facility] 2nd Floor Cardiology, [place] [address] [facility] [place] [phone] Gw, Excess Time Radiology [address] [place] [address] 12/26/2023 11:00 AM EDT Office Visit Cardiology, [facility] [address] [place] [address] Gennaro Ace PA-C [address] [place] [address] 06/09/2024 8:45 AM EDT Office Visit Urology, [facility] [address] [place] [address] Adolfo Tian MD [address] [place] [address] Scheduled Orders Name Type Priority Associated Diagnoses Orde r Schedule QUANTIFERON TB GOLD PLUS Lab STAT ESRD on dialysis (HCC) Pre-transplant evaluation for ESRD (end stage renal disease) Expected: 02/18/2024 (Approximate), Expires: 12/03/2024 HIV ANTIGEN & ANTIBODY SCREEN W/ CONFIRMATION Lab STAT ESRD on dialysis (HCC) Pre-transplant evaluation for ESRD (end stage renal disease) Expected: 02/18/2024 (Approximate), Expires: 12/03/2024 CMV IGG ANTIBODY Lab STAT ESRD on dialysis (HCC) Pre-transplant evaluation for ESRD (end stage renal disease) Expected: 02/18/2024 (Approximate), Expires: 12/03/2024 RPR Lab STAT ESRD on dialysis (HCC) Pre-transplant evaluation for ESRD (end stage renal disease) Expected: 02/18/2024 (Approximate), Expires: 12/03/2024 HEPATITIS B SURFACE ANTIGEN Lab STAT ESRD on dialysis (HCC) Pre-transplant evaluation for ESRD (end stage renal disease) Expected: 02/18/2024 (Approximate), Expires: 12/03/2024 HEPATITIS B SURFACE ANTIBODY Lab STAT ESRD on dialysis (HCC) Pre-transplant evaluation for ESRD (end stage renal disease) Expected: 02/18/2024 (Approximate), Expires: 12/03/2024 HEPATITIS B CORE ANTIBODIES IGG AND IGM Lab STAT ESRD on dialysis (HCC) Pre-transplant evaluation for ESRD (end stage renal disease) Expected: 02/18/2024 (Approximate), Expires: 12/03/2024 HEPATITIS C ANTIBODY SCREEN WITH PROGRESSION TO HEPATITIS C RNA QUANTITATIVE Lab STAT ESRD on dialysis (HCC) Pre-transplant evaluation for ESRD (end stage renal disease) Expected: 02/18/2024 (Approximate), Expires: 12/03/2024 COMPREHENSIVE METABOLIC PANEL Lab STAT ESRD on dialysis (HCC) Pre-transplant evaluation for ESRD (end stage renal disease) Expected: 02/18/2024 (Approximate), Expires: 12/03/2024 MONTHLY HLA CLASS 1 & 2 W/REFLEX, SOLID ORGAN TRANSPLANT Lab STAT ESRD on dialysis (HCC) Pre-transplant evaluation for ESRD (end stage renal disease) Expected: 02/18/2024 (Approximate), Expires: 12/03/2024 PTH Lab STAT ESRD on dialysis (HCC) Pre-transplant evaluation for ESRD (end stage renal disease) Expected: 02/18/2024 (Approximate), Expires: 12/03/2024 XR CHEST 2 VIEWS Medical Imaging Routine ESRD on dialysis (HCC) Pre-transplant evaluation for ESRD (end stage renal disease) Expected: 02/18/2024, Expires: 12/26/2024 CT ABD/PELVIS WO IV/ORAL CONTRAST Medical Imaging Routine ESRD on dialysis (HCC) Pre-transplant evaluation for ESRD (end stage renal disease) Expected: 02/18/2024, Expires: 12/26/2024 HEMOGLOBIN A1C Lab STAT Type 2 diabetes mellitus with hemoglobin A1c goal of less than 8.0% (HCC) ESRD on dialysis (HCC) Pre-transplant evaluation for ESRD (end stage renal disease) Expected: 02/18/2024 (Approximate), Expires: 12/03/2024 PSA Lab STAT ESRD on dialysis (HCC) Pre-transplant evaluation for ESRD (end stage renal disease) Expected: 02/18/2024 (Approximate), Expires: 12/03/2024 Health Maintenance Due Date Last Done Comments [...] Diagnoses Diagnosis Type 2 diabetes mellitus with hemoglobin A1c goal of less than 8.0% (HCC)- Primary ESRD on dialysis (HCC) End stage renal disease Pre-transplant evaluation for ESRD (end stage renal disease) Other specified pre-operative examination documented in this encounter Advance Directives * Full Code (Latest Code Status on File) Date Activated Date Inactivated Comments 07/17/2018 1:29 AM 07/18/2018 10:02 PM This order re flects the patients wishes and were consensually agreed upon. Question Answer Comments Discussion of Advance Directives occurred with: Patient Care Teams Materials Branch Chief Relationship Specialty Start Date End Date Fiona Novoa DO [address] [place] [id number] PCP - General Family Medicine 10/04/15 documented as of this encounter
--- OUTSIDE RECORDS SUMMARY | 2024-03-17 22:11 | External Medical Summary | Summary of Care ---
Author Name Unknown Organization [facility] Address [address] [place] [address] Phone [phone] Care Team Providers Care Soda Dry House Operator Name Role Phone KaydenFiona mooney Primary Care Provider [phone] Reason for Visit * Reason Onset Date Comments Advice 12/26/2023 Encounter Details Date Type Department Care Team (Late st Contact Info) Description 12/26/2023 Telephone Vascular Surg [facility] [address] [place], [place] [phone] Huy Zapien MD [address] [place] [address] Advice Allergies Active Allergy Reactions [...] A1c goal of less than 7.0% ([facility]) USE TO TEST BLOOD SUGAR UP TO 4 TIMES DAILY 300 Strip 3 01/06/2023 4 Active OneTouch Delica Plus Csoiqf32U USE UP TO 4 TIMES A DAY 100 Each 5 01/06/2023 4 Active FreeStyle Lizbeth 2 [place] DeviceIndications:Ty pe 2 diabetes mellitus with hemoglobin [...] Recorded PHQ Adult Total Score 0 04/24/2022 [facility] - Occupational Stress Questionnaire [...] PM EDT Message received from Lenora at [facility] Good Afternoon, I am emailing regarding a [...] a potential CVC exchange. He would prefer [facility] but would be willing to go to [facility]. Please let us know if you need any other information from us. I have attached data from his treatments regarding his BFR not meeting prescription. Thanks! Lenora Hawk, [facility] [place] [facility] [address], [address] [place] [address] [phone] documented in this encounter Plan of Treatment Upcoming Encounters Date Type Department Care Team (Late st Contact Info) Description 12/31/2023 Hospital Encounter OR [facility]PER[facility], CACHORROCHELSEA LAZO [address] [place] [phone] Brian Long MD [address] [place], [place] [phone] 03/03/2024 11:00 AM EST Office Visit Transplant Clinic, [facility] [address], [place] [phone] Narcisa Jones MD [address] [place] [address] Samuel Schulz MD [address] [place] [address] Nurse [facility] [address] [place], [place] [phone] Yolanda Noonan, FISCAL ACCOUNTANT [address] [place], [place] [phone] 03/03/2024 3:00 PM EST Laboratory Outpatient Laboratory, [facility] [address] [place] [phone] [facility], Lab B1a [address] [place] [address] 06/09/2024 8:45 AM EDT Office Visit Urology, [facility] [address] [place] [address] Adolfo Tian MD [address] [place] [address] Scheduled Procedures Name Priority Associated Diagnoses Date/Ti me REPLACEMENT COMPLETE TUNNELE D CENTRAL CATHETER NO PORT ESRD (end stage renal disease) on dialysis (HCC) Health Maintenance Due Date Last Done Comments [...] Advance Directives occurred with: Patient Care Teams Soda Dry House Operator Relationship Specialty Start Date End Date Fiona Novoa DO [address] [place] [address] PCP - General Family Medicine 10/04/15 documented as of this encounter
--- OUTSIDE RECORDS SUMMARY | 2024-03-17 22:11 | External Medical Summary ---
Author Name Unknown Address Unknown Organization : Laboratory Report Ordering Provider Test Date Status SANCHEZ LOWERY 11/27/2023 05:15:00 Correction Observation Date Value Abnormality Reference (Units ) Status REFERENCE LAB SCANNED REPORT 11/27/2023 05:15:00 See Scanned Report Final [facility] STORAGE FEE 11/27/2023 05:15:00 Serum not tested, on hold at [facility] HLA Lab Final Performing Location
--- OUTSIDE RECORDS SUMMARY | 2024-03-17 22:11 | External Medical Summary | Summary of Care ---
Author Name Unknown Organization [facility] Address [address] [facility] [place] [address] Phone [phone] Care Team Providers Care Coconut Boiler Name Role Phone Fiona Novoa DO Primary Care Provider [phone] Reason for Visit * Reason Comments Acute Fall skin tear Encounter Details Date Type Department Care Team (Late st Contact Info) Description 11/12/2023 1:00 PM EDT Office Visit Family Practice [facility] [address] [place] [address] Kalpana Paulson CRNP [address] [place] [address] Skin tear of forearm without complication, right, initial encounter* Allergies Active Allergy Reactions Criticality Noted Date Comments Charlie Inhibitors 11/06/2018 Sitagliptin Other (Please comment) 02/22/2015 lightheadedness Statins High 11/06/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 Wound Dressing Adhesive 11/12/2023 TAPE-- SKIN TEARS documented as of this encounter (statuses as of 11/28/2023) Medications Medication Sig Dispensed Refills Start Date [...] 3 01/06/2023 4 Active OneTouch Delica Plus [id number] USE UP TO 4 TIMES A DAY 100 Each 5 01/06/2023 4 Active FreeStyle Lizbeth 2 [place] DeviceIndications:Ty pe 2 diabetes mellitus with hemoglobin [...] as of this encounter (statuses as of 11/28/2023) Active Problems Problem Noted Date Diagnosed Date [...] as of this encounter (statuses as of 11/28/2023) Resolved Problems Problem Noted Date Diagnosed Date [...] as of this encounter (statuses as of 11/28/2023) Immunizations Name Administration Dates Next Due COVID-19 mRNA, LNP-s, No Pre serve, 2-Dose Series ([employer] [place]) 02/14/2021,06/30/2020,06/09/2020 Covid-19, Mrna, Lnp-s, Pf, B ivalent, [...] Recorded PHQ Adult Total Score 0 04/24/2022 [facility] - Occupational Stress Questionnaire [...] Sign Reading Time Taken Comments Blood Pressure 146/82 11/12/2023 12:56 PM EDT Pulse 58 11/12/2023 12:56 PM EDT Temperature 35.9 C (96.6 F) 11/12/2023 12:56 PM E DT Respiratory Rate - - Oxygen Saturation 97% 11/12/2023 12:56 PM EDT Inhaled Oxygen Concentration - - Weight 73.3 kg (161 lb 8 oz) 11/12/2023 12:56 PM EDT Height - - Body Mass Index [...] as of this encounter Progress Notes * Kalpana Paulson CRNP - 11/12/2023 1:07 PM EDT Images from the original note were not included. History of Present Illness Galen Jack is a 78 year old male that presents for Acute (Fall skin tear) HPI Here for skin tear on R forearm after mechanical fall yesterday leaving dialysis. Did not hit head.Full ROM of elbow, wrist on R arm. Presents with sister for evaluation. Current Outpatient Medications Medication Sig Dispense Refill Losartan Potassium 25 MG Oral Tablet (Cozaar) take 2 tablets by mouth daily in the morning 60 Tablet 3 Calcium Acetate (Phos Binder) 667 MG Oral Capsule (Phoslo) take 1 capsule by mouth with meals and 1capsule with snacks 450 Capsule 6 Famotidine 20 MG Oral Tablet (Pepcid) take one tablet by mouth every other day 45 Tablet 1 Ezetimibe 10 MG Oral Tablet (Zetia) Take 1 Tablet by mouth in the morning. 90 Tablet 3 OneTouch Delica Plus [id number] USE UP TO 4 TIMES A DAY 100 Each 5 OneTouch Verio In Vitro Strip (Glucose Blood) USE TO TEST BLOOD SUGAR UP TO 4 TIMES DAILY 300 Strip3 Vitamin C 100 MG Oral Tablet Take 1 Tablet by mouth in the morning. CYANOCOBALAMIN (VITAMIN B-12) 100 MCG Tablet DAILY Cholecalciferol (VITAMIN D) 1000 UNIT Capsule Take 2 Capsules by mouth in the morning. Metoprolol Succinate ER 25 MG Oral Tablet Extended Release 24 Hour (toPROL XL) Take 1/2 tablet by mouth after dialysis on Saturday, Saturday and Saturday 15 Tablet 0 FreeStyle Lizbeth 2 [place] Device Use as directed. Dx E11.9 (Patient not taking: Reported on 11/05/2023) 1 Each 1 FreeStyle Lizbeth 2 Sensor Use as directed. Dx E11.9 (Patient not taking: Reported on 11/05/2023) 1 Each 5 No current facility-administered medications for this visit. Physical Exam Vitals: 11/12/23 1256 Temp: 35.9 C (96.6 F) Pulse: 58 SpO2: 97% BP: 146/82 Physical Exam Vitals reviewed. Constitutional: General: He is not in acute distress. Musculoskeletal: General: Normal range of motion. Skin: Comments: + skin tear Neurological: Mental Status: He is alert. Mental status is at baseline. Psychiatric: Behavior: Behavior normal. Thought Content: Thought content normal. Assessment and Plan Skin tear of forearm without complication, right, initial encounter Wound dressing removed, wound cleansed, new bandage placed Discussed wound care, indications for follow up or ER Wrap-Up Follow Up: Return if symptoms worsen or fail to improve. Time: I spent a total of 20-29 minutes (exact time 20 mins) on the date of service in preparation, delivery, and documentation of the care provided to Galen Jack excluding any time spent in the performance of separately billed services. documented in this encounter Nursing Notes * Xiao Cason LPN - 11/12/2023 12:55 PM EDT The patient has been properly identified by confirmation of name and date of . Chief Complaint Patient presents with Acute Fall skin tear Pt had a fall yesterday, skin tear on R arm. Outer elbow. Did not hit head. No on blood thinners. documented in this encounter Plan of Treatment Upcoming Encounters Date Type Department Care Team (Late st Contact Info) Description 12/12/2023 9:30 AM EDT Cardiac Studies Cardiac Studies, [facility] [address] [place] [address] 12/12/2023 10:30 AM EDT Imaging [facility] 2nd Floor Cardiology, [place] [address] [place] [phone] Gw, Excess Time Radiology [address] [place] [address] 12/26/2023 11:00 AM EDT Office Visit Cardiology, [facility] [place] [address] Gennaro Ace PA-C [address] [place] [address] 03/03/2024 11:00 AM EST Office Visit Transplant Clinic, [facility] [address] [place], [place] [phone] Narcisa Jones MD [address] [place] [address] Samuel Schulz MD [address] [place], [place] [phone] Nurse [facility] [address] [place], [place] [phone] Yolanda Noonan, LAYER UP [address] [place] [address] 03/03/2024 3:00 PM EST Laboratory Outpatient Laboratory, [address] [address] [facility], Lab B1a [address] [place] [address] 06/09/2024 8:45 AM EDT Office Visit Urology, [facility] [address] [facility] [place] [address] [...] as of this encounter Visit Diagnoses Diagnosis Skin tear of forearm without complication, right, initial encounter- Primary documented in this encounter Advance Directives * Full Code (Latest Code Status on File) Date Activated Date Inactivated Comments 07/17/2018 1:29 AM 07/18/2018 10:02 PM This order re flects the patients wishes and were consensually agreed upon. Question Answer Comments Discussion of Advance Directives occurred with: Patient Care Teams Coconut Boiler Relationship Specialty Start Date End Date Fiona Novoa DO [address] [place] [address] PCP - General Family Medicine 10/04/15 documented as of this encounter
--- OUTSIDE RECORDS SUMMARY | 2024-03-17 22:11 | External Medical Summary | Summary of Care ---
Author Name Unknown Organization [facility] Address [address] [place] [address] Phone [phone] Care Team Providers Care Manuscripts Curator Name Role Phone Fiona Novoa DO Primary Care Provider [phone] Reason for Referral * Evaluate & Treat - Unlimited Visits (Within 10 days (routine)) - Authorized Specialty Diagnoses / Procedures Referred By Niko kulkarni Referred To Contact HOME CARE / Home Care Diagnoses Balance problem Ambulatory dysfunction Fiona Novoa DO [address] [place] [address] Referral ID Status Reason Start Date Expiration Date Visits Requested Visits Authorized [id number] Authorized Specialty Services Required 11/05/2023 999 999 Question Answer Referral Priority Within 10 days (routine) Where should this appointment be scheduled? Jose Comments Documentation of [id number] Encounter Addendum Patient Name: Galen Jack I certify that this patient is under my care and that I, or a nurse practitioner or physician's middle school assistant principal working with me, had a [id number] encounter that meets the physician [id number] encounter requirements with this patient on: 11/05/23 The encounter with the patient was in whole, or in part, for the following medical condition, which is the primary reason for home health care (List medical condition): Gait dysfunction I certify that, based on my findings, the following services are medically necessary home health services: Physical Therapy To provide the following care/treatments: (All hospitalists not following the patient after discharge should complete this section): balance training, ambulatory dysfunction Primary Care Physician to follow home care plan of care after discharge: Fiona Novoa My clinical findings support the need for the above services because: ambulatory dysfunction, risk of falls Further, I certify that my clinical findings support that this patient is homebound (i.e. Absences from home require considerable and taxing effort and are for medical reasons or jewish services or infrequently or of short duration when for other reason) because: Advanced age, inability to drive, ambulatory dysfunction Physician Signature: Date of Signature: Physician Printed Name: Fiona Novoa DO Reason for Visit * Reason Comments Re-Check 6 mo check Encounter Details Date Type Department Care Team (Late st Contact Info) Description 11/05/2023 10:00 AM EDT Office Visit Family Practice [facility] [address] [facility] [place] [address] Fiona Novoa DO [address] [place] [address] Balance problem*; Ambulatory dysfunction; Type 2 diabetes mellitus with chronic kidney disease on chronic dialysis, with long-term current use of insulin (HCC); HTN, goal below 130/80; Persistent atrial fibrillation (HCC); ESRD on dialysis (HCC); Dyslipidemia, goal LDL below 70 Allergies Active Allergy Reactions Criticality Noted Date [...] 4 TIMES DAILY 300 Strip 3 01/06/2023 02/23/20 24 Active OneTouch Delica Plus [id number] USE UP TO 4 TIMES A DAY 100 Each 5 01/06/2023 01/06/20 24 Active FreeStyle Lizbeth 2 [place] DeviceIndications:T ype 2 diabetes mellitus with hemoglobin [...] (toPROL XL) take 1/2 tablet by mouth daily. Take after treatments on Saturday/Saturday /Saturday. 15 Tablet 6 09/09/2023 11/05/19 24 Discontinu ed(Medicat ion List Clean Up) documented as of this encounter (statuses as [...] mRNA, LNP-s, No Pre serve, 2-Dose Series ([employer]) 02/14/2021,06/30/2020,06/09/2020 Covid-19, Mrna, Lnp-s, Pf, B ivalent, [...] Recorded PHQ Adult Total Score 0 04/24/2022 [facility] - Occupational Stress [...] Sign Reading Time Taken Comments Blood Pressure 162/70 11/05/2023 9:59 AM EDT Pulse 80 11/05/2023 9:59 AM EDT Temperature 36.2 C (97.1 F) 11/05/2023 9:59 AM ED T Respiratory Rate 18 11/05/2023 9:59 AM EDT Oxygen Saturation - - Inhaled Oxygen Concentration - - Weight 71.7 kg (158 lb) 11/05/2023 9:59 AM EDT Height - - Body Mass Index 23.14 08/20/2023 10:18 AM EDT documented in this [...] as of this encounter Progress Notes * Fiona Novoa, DO - 11/05/2023 10:18 AM EDT Subjective: Galen Jack is a 78 year old male. Chief Complaint Patient presents with Re-Check 6 mo check HPI: Pt presents for follow up today. Working w/nephrology on BP - elevated today. Pt reports BP is elevated after dialysis. Denies THAKKAR orvision changes. He reports episodes of dizziness, feels unsteady when standing up and when outside, not terribly active. Balance with ambulation is poor. Fell a few weeks ago, + skin tear of the R arm. Denies hitting his head. BG have been stable at home, avg 130s. Off all meds. GERD sx controlled, appetite is good. PHM: Patient Active Problem List Diagnosis Diverticulosis of colon Type 2 diabetes mellitus with hemoglobin A1c goal of less than 8.0% ([facility]) Dyslipidemia HTN, goal below 130/80 CHARLIE inhibitor intolerance Vitamin D deficiency Type 2 diabetes mellitus with chronic kidney disease on chronic dialysis, with long-term current use of insulin ([facility]) TORIN (generalized anxiety disorder) Statin myopathy Type 2 diabetes mellitus with mild nonproliferative diabetic retinopathy without macular edema, left eye ([facility]) Renal osteodystrophy CKD, patient preferred treatment modality peritoneal dialysis ESRD on dialysis ([facility]) Hyperparathyroidism, secondary renal (HCC) Hypertensive kidney disease with end-stage renal disease on dialysis ([facility]) Persistent atrial fibrillation ([facility]) Gastroesophageal reflux disease without esophagitis Current Outpatient Medications Medication Sig Dispense Refill [...] TIMES DAILY 300 Strip3 OneTouch Delica Plus [id number] USE UP TO 4 TIMES A DAY 100 Each 5 Ezetimibe 10 MG Oral Tablet [...] daily in the morning 60 Tablet 3 FreeStyle Lizbeth 2 [place] Device Use as directed. Dx E11.9 (Patient [...] DIAGNOSTIC performed by EMELI NAVARRO at ENDOSCOPY [facility],HYPERPLASTIC POLYPS REPEAT COLONOSCOPY IN 5 [...] DIAGNOSTIC performed by EMELI NAVARRO at ENDOSCOPY [facility],HYPERPLASTIC POLYPS REPEAT COLONOSCOPY IN 5 YEARS COLONOSCOPY, DIAGNOSTIC (RECTUM) 10/19/2016 adenomatous polyp, diverticulosis, repeat 5 yrs/[facility] COLONOSCOPY, DIAGNOSTIC (RECTUM) 07/28/2018 adenomatous polyps, diverticulosis, fair prep, repeat 1 yr/[facility] COLONOSCOPY, DIAGNOSTIC (RECTUM) 06/08/2020 diverticulosis / [facility] EGD, FLEXIBLE, DIAGNOSTIC 11/28/2017 esophagitis, +H pylori / [facility] EGD, FLEXIBLE, DIAGNOSTIC 07/28/2018 duodenal erosion, gastritis, repeat 2 mo/[facility] EGD, FLEXIBLE, DIAGNOSTIC 11/03/2018 normal bx / [facility] EGD, FLEXIBLE, DIAGNOSTIC 01/11/2021 sm hiatal hernia / [facility] INFORMATION Right 2021 R arm fistula creation. INJECT DX/THER SUBSTANCE INTERLAMINAR LUMBAR/SACRAL W IMAGE GUIDE 03/01/2023 INJECTION SPINE LUMBAR OR SACRAL performed by Calvin Voss DO at OR [facility] INTRO CATH DIALYSIS CIRCUIT W/TRANSLUM BALLOON ANGIOPLASTY Right 02/22/2022 AV FISTULOGRAM & PERIPHERAL ANGIOPLASTY performed by Valdemar Nugent MD at OR [facility] REMOVE CATARACT, INSERT LENS PROSTH 2007 STRESS TEST 2003 normal per pt TRANSLUMINAL BALLOON ANGIOPLASTY CENTRAL DIALYSIS SEGMENT W/IMAGING Right 02/22/2022 ANGIOPLASTY CENTRAL DIALYSIS SEGMENT performed by Valdemar Nugent MD at OR [facility] Review of patient's allergies indicates: Allergen Reactions Statins myopathy Charlie Inhibitors Januvia [Sitagliptin] Other (Please comment) lightheadedness Objective: BP 162/70 (BP Site: Left Arm, BP Position: Sitting, BP Cuff Size: Regular) | Pulse 80 | Temp 36.2 C (97.1 F) (Tympanic) | Resp 18 | Wt 71.7 kg (158 lb) | BMI 23.14 kg/m | BSA 1.87 m Review of Systems: As per HPI, all other ROS neg. Physical Exam: General: alert, healthy, and no distress Head: Normocephalic, No masses, lesions, tenderness or abnormalities Heart: no gallops and irregularly irregular Lungs: chest symmetric with normal AP diameter, no chest deformities noted, no chest wall tenderness, lungs clear to auscultation Abdomen: abdomen soft, non-tender, normal bowel sounds, and no masses or organomegaly Extremities: no joint deformities, effusion, or inflammation, no edema Balance problem (Primary) - HOME HEALTH REFERRAL OP Ambulatory dysfunction - HOME HEALTH REFERRAL OP Type 2 diabetes mellitus with chronic kidney disease on chronic dialysis, with long-term current use of insulin (HCC) - HEMOGLOBIN A1C; Future; Expected date: 11/05/2023 HTN, goal below 130/80 BP labile, following w/nephrology Persistent atrial fibrillation (HCC) Rate controlled, no current anticoagulation ESRD on dialysis (HCC) Dyslipidemia, goal LDL below 70 Follow up: in 6 month(s). Fiona Novoa DO documented in this encounter Plan of Treatment Upcoming Encounters Date Type Department Care Team (Late st Contact Info) Description 12/12/2023 9:30 AM EDT Cardiac Studies Cardiac Studies, [facility] [address] [facility] [place] [address] 12/12/2023 10:30 AM EDT Imaging [facility] 2nd Floor Cardiology, [address] [place] [id number] Gw, Excess Time Radiology [address] [facility] [place] [address] 12/26/2023 11:00 AM EDT Office Visit Cardiology, [facility] [address] [facility] [place] [address] Gennaro Ace PA-C [address] [place] [address] 06/09/2024 8:45 AM EDT Office Visit Urology, [facility] [address] [facility] [place] [address] Adolfo Tian MD [address] [place] [address] Pending Results Name Type Priority Associated Diagnoses Date /Time HEMOGLOBIN A1C Lab Routine Type 2 diabetes mellitus with chronic kidney disease on chronic dialysis, with long-term current use of insulin (HCC) 11/05/2023 10:54 AM EDT Scheduled Orders Name Type Priority Associated Diagnoses Orde r Schedule HEMOGLOBIN A1C Lab Routine Type 2 diabetes mellitus with chronic kidney disease on chronic dialysis, with long-term current use of insulin (HCC) Expected: 11/05/2023 (Approximate), Expires: 11/04/2024 Scheduled Referrals Name Type Priority Associated Diagnoses Orde r Schedule HOME HEALTH REFERRAL OP Referral Within 10 days (routine) Balance problem Ambulatory dysfunction Ordered: 11/05/2023 Health Maintenance Due Date Last Done Comments [...] as of this encounter Visit Diagnoses Diagnosis Balance problem- Primary Other symptoms involving nervous and musculoskeletal systems Ambulatory dysfunction Type 2 diabetes mellitus with chronic kidney disease on chronic dialysis, with long-term current use of insulin (HCC) HTN, goal below 130/80 Unspecified essential hypertension Persistent atrial fibrillation (HCC) Atrial fibrillation ESRD on dialysis (HCC) End stage renal disease Dyslipidemia, goal LDL below 70 Other and unspecified hyperlipidemia documented in this encounter Advance Directives * Full Code (Latest Code Status on File) Date Activated Date Inactivated Comments 07/17/2018 1:29 AM 07/18/2018 10:02 PM This order re flects the patients wishes and were consensually agreed upon. Question Answer Comments Discussion of Advance Directives occurred with: Patient Care Teams Manuscripts Curator Relationship Specialty Start Date End Date Fiona Novoa DO [address] [place] [address] PCP - General Family Medicine 10/04/15 documented as of this encounter"
--- OUTSIDE RECORDS SUMMARY | 2024-03-17 22:11 | External Medical Summary | Summary of Care ---
Author Name Unknown Organization [facility] Address [address] [place] [address] Phone [phone] Care Team Providers Care Imcu Nurse Name Role Phone KaydenFiona mooney Primary Care Provider [phone] Reason for Visit * Reason Onset Date Comments Advice 12/26/2023 Encounter Details Date Type Department Care Team (Late st Contact Info) Description 12/26/2023 Telephone Vascular Surg [facility] [address], [place] [phone] Huy Zapien MD [address] [place] [address] Advice Allergies Active Allergy Reactions [...] hemoglobin A1c goal of less than 7.0% ([facility]) USE TO TEST BLOOD SUGAR UP TO 4 TIMES DAILY 300 Strip 3 01/06/2023 4 Active OneTouch Delica Plus [id number] USE UP TO 4 TIMES A DAY 100 Each 5 01/06/2023 4 Active FreeStyle Lizbeth 2 [place] DeviceIndications:Ty pe 2 diabetes mellitus with hemoglobin [...] Recorded PHQ Adult Total Score 0 04/24/2022 [facility] - Occupational Stress Questionnaire [...] PM EDT Message received from Lenora at [facility] Good Afternoon, I am emailing regarding a [...] a potential CVC exchange. He would prefer [facility] but would be willing to go to [place]. Please let us know if you need any other information from us. I have attached data from his treatments regarding his BFR not meeting prescription. Thanks! Lenora Hawk, [facility] [address], [address] [place] [address] [phone] documented in this encounter Plan of Treatment Upcoming Encounters Date Type Department Care Team (Late st Contact Info) Description 03/03/2024 11:00 AM EST Office Visit Transplant Clinic, [address] [place], [place] [phone] Narcisa Jones MD [address] [place] [address] Samuel Schulz MD [address] [place], [place] [phone] Nurse [facility] [address] [place], [place] [phone] Yolanda Noonan, WIRE [employer] [address] [place] [address] 03/03/2024 3:00 PM EST Laboratory Outpatient Laboratory, [place] [address] [place] [address] [place], Lab B1a [address] [place] [address] 06/09/2024 8:45 AM EDT Office Visit Urology, [facility] [address] [facility] [place] [address] Adolfo Tian MD [address] [...] Advance Directives occurred with: Patient Care Teams Imcu Nurse Relationship Specialty Start Date End Date Fiona Novoa DO [address] [facility] [place] [address] PCP - General Family Medicine 10/04/15 documented as of this encounter
--- OUTSIDE RECORDS SUMMARY | 2024-03-17 22:12 | External Medical Summary | Summary of Care ---
Author Name Unknown Organization [facility] Address [address] [place] [address] Phone [phone] Care Team Providers Care Bowling Ball Assembler Name Role Phone Fiona Novoa DO Primary Care Provider [phone] Reason for Visit * Reason Onset Date Comments Appointment 10/03/2023 Encounter Details Date Type Department Care Team (Late st Contact Info) Description 10/03/2023 Telephone [facility] [place] [address] [place] [address] Schedgick Annette Bolton, DO [address] [place] [address] Appointment (//) Allergies Active Allergy Reactions Criticality Noted Date Comments Charlie Inhibitors 11/06/2018 Sitagliptin Other (Please comment) 02/22/2015 lightheadedness Statins High 11/06/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 documented as of this encounter (statuses as of 10/03/2023) Medications Medication Sig Dispensed Refills Start Date [...] hemoglobin A1c goal of less than 7.0% ([facility]) USE TO TEST BLOOD SUGAR UP TO 4 TIMES DAILY 300 Strip 3 01/06/2023 4 Active OneTouch Delica Plus [id number] USE UP TO 4 TIMES A DAY 100 Each 5 01/06/2023 4 Active FreeStyle Lizbeth 2 [place] DeviceIndications:Ty pe 2 diabetes mellitus with hemoglobin A1c goal of less than 8.0% ([facility]) Use as directed. Dx E11.9 1 Each 1 01/14/2023 Active FreeStyle Lizbeth 2 SensorIndications:Ty pe 2 diabetes mellitus with hemoglobin A1c goal of less than 8.0% ([facility]) Use as directed. Dx E11.9 1 Each 5 01/14/2023 Active Losartan Potassium 50 MG Oral Tablet (Cozaar) Take 1 Tablet by mouth in the morning. 90 Tablet 3 03/19/2023 Active Ezetimibe 10 MG Oral Tablet (Zetia)Indications:M ixed [...] with snacks 450 Capsule 6 08/30/2023 Active Metoprolol Succinate ER 25 MG Oral Tablet Extended Release 24 Hour (toPROL XL) take 1/2 tablet by mouth daily. Take after treatments on Saturday/Saturday /Saturday. 15 Tablet 6 09/09/2023 Active Losartan Potassium 25 MG Oral Tablet (Cozaar) take 1 tablet by mouth daily 30 Tablet 6 09/27/2023 Active documented as of this encounter (statuses as of 10/03/2023) Active Problems Problem Noted Date Diagnosed Date Persistent atrial fibrillation 04/03/2023 Gastroesophageal reflux disease without esophagi tis 04/03/2023 Hypertensive kidney disease with end-stage renal disease on dialysis 09/08/2021 Hyperparathyroidism, secondary renal 05/23/2021 ESRD on dialysis 11/07/2020 CKD, patient preferred treat ment modality peritoneal dialysis 07/15/2020 CKD, patient interested in transplantation 07/15 Type 2 diabetes mellitus wit h mild [...] as of this encounter (statuses as of 10/03/2023) Resolved Problems Problem Noted Date Diagnosed Date [...] as of this encounter (statuses as of 10/03/2023) Immunizations Name Administration Dates Next Due COVID-19 mRNA, LNP-s, No Pre serve, 2-Dose Series ([employer]) 02/14/2021,06/30/2020,06/09/2020 Covid-19, Mrna, Lnp-s, Pf, B ivalent, [...] Total Score 0 04/24/2022 [facility] - Occupational Stress Questionnaire [...] encounter Miscellaneous Notes * Telephone Encounter - Carlton Childs OSA - 10/03/2023 1:33 PM EDT [facility] Engagement Attempt Engagement: Engagement Attempt 1: Unable to contact Engagement Attempt 2: Unable to contact Engagement Attempt 3: Unable to contact [facility] letter sent Episode closed Home Information: No data was found Advance Care Planning (ACP): No data was found Has Living Will or Advance Directive: No data was found Anticipated Sub-Program: Focused Care Management (3-9 months) Confirmation of Sub-Program Type (by care collection team lead): No data was found Handoff Information: Current care team notified via: Epic communication Current telemonitoring equipment: No data was found documented in this encounter Plan of Treatment Upcoming Encounters Date Type Department Care Team (Late st Contact Info) Description 10/29/2023 8:00 AM EDT Office Visit Family Practice [facility] [address] [facility] [place] [address] Fiona Novoa DO [address] [place] [address] 12/12/2023 9:30 AM EDT Cardiac Studies Cardiac Studies, [facility] [place] [address] 12/12/2023 10:30 AM EDT Imaging [facility] 2nd Floor Cardiology, [address] [place] [phone] Gw, Excess Time Radiology [address] [facility] [place] [address] 12/26/2023 11:00 AM EDT Office Visit Cardiology, [facility] [address] [facility] [place] [address] Gennaro Ace, PA-C [address] [facility] [place] [address] 06/09/2024 8:45 AM EDT Office Visit Urology, [facility] [address] [facility] [place] [address] Adolfo Tian MD [address] [place] [address] Health Maintenance Due Date Last Done Comments Diabetic Eye Exam 12/26/2019 12/25/2018, , 12/27/2014, Additional history exists Hepatitis B Vaccine (3 of 3 - 19+ 3-dose series) 11/22/2020 09/27/2020, 03/28/2020 COVID-19 Vaccine ( - 2022-24 season) 2022 01/23/2022, 02/14/2021, 06/30/2020, Additional history exists Depression Screening 04/24/2023 04/24/2022 HbA1c 08/23/2023 02/21/2023, 05/2022, 01/23/2022, Additional history exists Influenza Vaccine (FLU shot) (#1) 2023 11/15/2022, 12/13/2021, 01/19/2021, Additional history exists Diabetic Foot Exam 03/19/2024 03/19/2023, 1 03/25/2021, 02/01/2021, Additional history exists DTaP,Tdap,and Td Vaccines (3 - Td or [...] Advance Directives occurred with: Patient Care Teams Bowling Ball Assembler Relationship Specialty Start Date End Date Fiona Novoa DO [address] [place] [address] PCP - General Family Medicine 10/04/15 documented as of this encounter
--- OUTSIDE RECORDS SUMMARY | 2024-03-17 22:12 | External Medical Summary | Summary of Care ---
Author Name Unknown Organization [facility] Address [address] [place] [address] Phone [phone] Care Team Providers Care Wastewater Treatment Plant Chemist Name Role Phone Fiona Novoa DO Primary Care Provider [phone] Reason for Visit * Reason Onset Date Comments Appointment 10/01/2023 Encounter Details Date Type Department Care Team (Late st Contact Info) Description 10/01/2023 Telephone [facility] [address] [place] [address] [facility] Annette Bolton, DO [address] [place] [address] Appointment (//) Allergies Active Allergy Reactions Criticality Noted Date Comments Charlie Inhibitors 11/06/2018 Sitagliptin Other (Please comment) 02/22/2015 lightheadedness Statins High 11/06/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 documented as of this encounter (statuses as of 10/01/2023) Medications Medication Sig Dispensed Refills Start Date [...] A1c goal of less than 7.0% ([facility]) USE TO TEST BLOOD SUGAR UP TO 4 TIMES DAILY 300 Strip 3 01/06/2023 4 Active OneTouch Delica Plus [id number] USE UP TO 4 TIMES A DAY 100 Each 5 01/06/2023 4 Active FreeStyle Lizbeth 2 [place] DeviceIndications:Ty pe 2 diabetes mellitus with hemoglobin A1c goal of less than 8.0% ([facility]) Use as directed. Dx E11.9 1 Each 1 01/14/2023 Active FreeStyle Lizbeth 2 SensorIndications:Ty pe 2 diabetes mellitus with hemoglobin A1c goal of less than 8.0% ([facility]) Use as directed. Dx E11.9 1 Each [...] as of this encounter (statuses as of 10/01/2023) Active Problems Problem Noted Date Diagnosed Date [...] as of this encounter (statuses as of 10/01/2023) Resolved Problems Problem Noted Date Diagnosed Date [...] as of this encounter (statuses as of 10/01/2023) Immunizations Name Administration Dates Next Due COVID-19 mRNA, LNP-s, No Pre serve, 2-Dose Series (Anevia) 02/14/2021,06/30/2020,06/09/2020 Covid-19, Mrna, Lnp-s, Pf, B ivalent, [...] Recorded PHQ Adult Total Score 0 04/24/2022 [facility] - [...] Miscellaneous Notes * Telephone Encounter - Carlton Childs, MICK - 10/01/2023 1:03 PM EDT [facility] Engagement Attempt Engagement: Engagement Attempt 1: Unable to contact Engagement Attempt 2: Unable to contact Engagement Attempt 3: No data was found Home Information: No data was found Advance Care Planning (ACP): No data was found Has Living Will or Advance Directive: No data was found Anticipated Sub-Program: Focused Care Management (3-9 months) Confirmation of Sub-Program Type (by care automobile washer steam): No data was found Handoff Information: Current care team notified via: Acorio communication Current telemonitoring equipment: No data was found 09/30-lmom Looking at tamara 10/01 documented in this encounter Plan of Treatment Upcoming Encounters Date Type Department Care Team (Late st Contact Info) Description 10/29/2023 8:00 AM EDT Office Visit Family Practice [facility] [address] [place] [address] Fiona Novoa DO [address] [place] [address] 12/12/2023 9:30 AM EDT Cardiac Studies Cardiac Studies, [facility] [address] [place] [address] 12/12/2023 10:30 AM EDT Imaging [facility] 2nd Floor Cardiology, [place] [address] [facility] [place] [phone] Gw, Excess Time Radiology [address] [facility] [place] [address] 12/26/2023 11:00 AM EDT Office Visit Cardiology, [facility] [address] [facility] [place] [address] Gennaro Ace, PA-C [address] [place] [address] 06/09/2024 8:45 AM EDT Office Visit Urology, [facility] [address] [place] [address] Adolfo Tian MD [address] [place] [id number] Health Maintenance Due Date Last Done Comments Diabetic Eye Exam 12/26/2019 12/25/2018, , 12/27/2014, Additional history exists Hepatitis B Vaccine (3 of 3 - 19+ 3-dose series) 11/22/2020 09/27/2020, 03/28/2020 COVID-19 Vaccine ( - 2022- season) 2022 01/23/2022, 02/14/2021, 06/30/2020, Additional history [...] Advance Directives occurred with: Patient Care Teams Wastewater Treatment Plant Chemist Relationship Specialty Start Date End Date Fiona Novoa DO [address] [place] [address] PCP - General Family Medicine 10/04/15 documented as of this encounter
--- OUTSIDE RECORDS SUMMARY | 2024-03-17 22:12 | External Medical Summary | Summary of Care ---
Author Name Unknown Organization [facility] Address [address] [facility] [address] Phone [phone] Care Team Providers Care Heel Burnisher Name Role Phone Fiona Novoa DO Primary Care Provider [phone] Reason for Visit * Reason Comments Medication Refill Encounter Details Date Type Department Care Team (Late st Contact Info) Description 10/10/2023 Refill Nephrology, [place] [address] [place] [address] [place] Carpenter MD [address] [place] [address] Allergies Active Allergy Reactions Criticality Noted Date Comments Charlie Inhibitors 11/06/2018 Sitagliptin Other (Please comment) 02/22/2015 lightheadedness Statins High 11/06/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 documented as of this encounter (statuses as of 10/10/2023) Medications Medication Sig Dispensed Refills Start Date [...] hemoglobin A1c goal of less than 7.0% ([facility]) USE TO TEST BLOOD SUGAR UP TO 4 TIMES DAILY 300 Strip 3 01/06/2023 4 Active OneTouch Delica Plus [id number] USE UP TO 4 TIMES A DAY 100 Each 5 01/06/2023 4 Active FreeStyle Lizbeth 2 [place] DeviceIndications:Ty pe 2 diabetes mellitus with hemoglobin A1c goal of less than 8.0% ([facility]) Use as directed. Dx E11.9 [...] as of this encounter (statuses as of 10/10/2023) Active Problems Problem Noted Date Diagnosed Date [...] as of this encounter (statuses as of 10/10/2023) Resolved Problems Problem Noted Date Diagnosed Date [...] as of this encounter (statuses as of 10/10/2023) Immunizations Name Administration Dates Next Due COVID-19 mRNA, LNP-s, No Pre serve, 2-Dose Series ([employer]) 02/14/2021,06/30/2020,06/09/2020 Covid-19, Mrna, Lnp-s, Pf, B ivalent, [...] Recorded PHQ Adult Total Score 0 04/24/2022 [facility] ional Health - Occupational Stress [...] encounter Miscellaneous Notes * Telephone Encounter - Batsheva Arteaga LPN - 10/10/2023 4:44 PM EDTRefused Prescriptions: Disp Refills Metoprolol Succinate ER 25 MG Oral Tablet *15 Tab*6 Sig: take 1/2 tablet by mouth daily. Take after treatments on Saturday/Saturday/Saturday. Refused By: BATSHEVA ARTEAGA Reason for Refusal: Managed by another physician * Telephone Encounter - Batsheva Arteaga LPN - 10/10/2023 4:35 PM EDT This is an dialysis pt Will fax to [facility] in [place] documented in this encounter Plan of Treatment Upcoming Encounters Date Type Department Care Team (Late st Contact Info) Description 11/05/2023 10:00 AM EDT Office Visit Family Practice [facility] [address] [place] [address] Fiona Novoa DO [address] [place] [address] 12/12/2023 9:30 AM EDT Cardiac Studies Cardiac Studies, [facility] [address] [place] [address] 12/12/2023 10:30 AM EDT Imaging [facility] 2nd Floor Cardiology, [place] [address] [place] [phone] Gw, Excess Time Radiology [address] [place] [address] 12/26/2023 11:00 AM EDT Office Visit Cardiology, [facility] [address] [place] [address] Gennaro Ace PASatinder [address] [place] [address] 06/09/2024 8:45 AM EDT Office Visit Urology, [facility] [address] [place] [address] Adolfo Tian MD [address] [place] [address] Health Maintenance Due Date Last Done Comments Diabetic Eye Exam 12/26/2019 12/25/2018, , 12/27/2014, Additional history exists Hepatitis B Vaccine (3 of 3 - 19+ 3-dose series) 11/22/2020 09/27/2020, 03/28/2020 COVID-19 Vaccine (2022-24 season) 2022 01/23/2022, 02/14/2021, 06/30/2020, Additional history [...] Advance Directives occurred with: Patient Care Teams Heel Burnisher Relationship Specialty Start Date End Date Fiona Novoa DO [address] [place] [address] PCP - General Family Medicine 10/04/15 documented as of this encounter
--- OUTSIDE RECORDS SUMMARY | 2024-03-17 22:12 | External Medical Summary ---
Author Name Unknown Address Unknown Organization : Laboratory Report Ordering Provider Test Date Status SANCHEZ LOWERY 09/23/2023 06:10:00 Final Observation Date Value Abnormality Reference (Units ) Status REFERENCE LAB SCANNED REPORT 09/23/2023 06:10:00 See Scanned Report Final [facility] FEE 09/23/2023 06:10:00 Serum not tested, on hold at [facility] HLA Lab Final Performing Location
--- OUTSIDE RECORDS SUMMARY | 2024-03-17 22:12 | External Medical Summary | Summary of Care ---
Author Name Unknown Organization [facility] Address [address] [facility] [place] [address] Phone [phone] Care Team Providers Care Side Laster Staple Name Role Phone Fiona Novoa DO Primary Care Provider [phone] Reason for Visit * Reason Onset Date Comments Health Maintenance 09/26/2023 Encounter Details Date Type Department Care Team (Late st Contact Info) Description 09/26/2023 Telephone Family Practice [facility] [address] [place] [address] Fiona Novoa DO [address] [place] [address] Health Maintenance Allergies Active Allergy Reactions Criticality Noted Date Comments Charlie Inhibitors 11/06/2018 Sitagliptin Other (Please comment) 02/22/2015 lightheadedness Statins 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 Dx E11.9 1 Each 1 01/14/2023 Active FreeStyle Lizbeth 2 SensorIndications:Ty pe 2 diabetes mellitus with hemoglobin A1c goal of less than 8.0% ([facility]) Use as directed. Dx E11.9 1 Each [...] Saturday/Saturday /Saturday. 15 Tablet 6 09/09/2023 Active documented as of this encounter (statuses as of 09/26/2023) Active Problems Problem Noted Date Diagnosed Date [...] as of this encounter (statuses as of 09/26/2023) Resolved Problems Problem Noted Date Diagnosed Date [...] as of this encounter (statuses as of 09/26/2023) Immunizations Name Administration Dates Next Due COVID-19 mRNA, LNP-s, No Pre serve, 2-Dose Series (Audanika) 02/14/2021,06/30/2020,06/09/2020 Covid-19, Mrna, Lnp-s, Pf, B ivalent, [...] Recorded PHQ Adult Total Score 0 04/24/2022 [facility] Occupat ional Health - Occupational Stress [...] encounter Miscellaneous Notes * Telephone Encounter - Nandini Cowan LPN - 09/26/2023 10:47 AM EDT Care Gaps Comprehensive Care Outreach Last Office/Telemedicine Visit: 03/19/2023 (in office), Visit date not found (telemedicine) Next Office Visit: 10/29/2023 Hemoglobin AIC Results: Lab Results Component Value Date/Time HEMOGLOBIN A1C - [facility] 6.1 (H) 02/21/2023 09:32 AM HEMOGLOBIN A1C - [facility] 6.8 (H) 03/20/2022 08:54 AM HEMOGLOBIN A1C - [facility] 6.7 (H) 01/23/2022 10:51 AM HEMOGLOBIN A1C - [facility] 7.0 (H) 03/01/2020 10:54 AM HEMOGLOBIN A1C - [facility] 7.2 (H) 09/17/2019 11:36 AM HEMOGLOBIN A1C - [facility] 6.9 (H) 01/29/2019 07:11 AM BP Readings from Last 1 Encounters: 08/20/23 163/77 Reviewed Health Maintenance below: Health Maintenance Topic Date Due Diabetic Eye Exam 12/26/2019 Hepatitis B Vaccine (3 of 3 - 19+ 3-dose series) 11/22/2020 COVID-19 Vaccine ( season) 2022 Depression Screening 04/24/2023 HbA1c 08/23/2023 Influenza Vaccine (FLU shot) (1) 11/17/2023 Eye Lab already ordered Care Gap Outreach Action Taken: Left message documented in this encounter Plan of Treatment Upcoming Encounters Date Type Department Care Team (Late st Contact Info) Description 10/29/2023 8:00 AM EDT Office Visit Family Practice [facility] [address] [place] [address] Fiona Novoa DO [address] [place] [address] 12/12/2023 9:30 AM EDT Cardiac Studies Cardiac Studies, [facility] [address] [place] [address] 12/12/2023 10:30 AM EDT Imaging [facility] 2nd Floor Cardiology, [place] [address] [place] [phone] Gw, Excess Time Radiology [address] [place] [address] 12/26/2023 11:00 AM EDT Office Visit Cardiology, [facility] [address] [place] [address] Gennaro Ace PA-C [address] [place] [address] 06/09/2024 8:45 AM EDT Office Visit Urology, [facility] [address] [facility] [place] [address] Adolfo Tian MD [address] [place] [address] Health Maintenance Due Date Last Done Comments [...] Advance Directives occurred with: Patient Care Teams Side Laster Staple Relationship Specialty Start Date End Date Fiona Novoa DO [address] [place] [address] PCP - General Family Medicine 10/04/15 documented as of this encounter
--- OUTSIDE RECORDS SUMMARY | 2024-03-17 22:12 | External Medical Summary ---
Author Name Unknown Address Unknown Organization [id number]:LABORATORY [facility] [place] - [address] [facility] [place] [address] Laboratory Report Ordering Provider Test Date Status JUAN JOSÉ COWANCK 11/05/2023 10:54:48 Final Observation Date Value Abnormality Reference (Units ) Status Triglyceride 11/05/2023 10:54:48 127 <=174 ( mg/dL) Final Triglyceride Reference Range s (mg/dL):
<150 Acceptable
150-174 Borderline high
175-499 High
>=500 Very high Cholesterol 11/05/2023 10:54:48 224 Above high normal <200 (mg/dL) Final Total Cholesterol Reference Ranges (mg/dL):
<200 Desirable
200-239 Borderline high
>=240 High HDL 11/05/2023 10:54:48 60 >39 (mg/dL ) Final HDL Cholesterol Reference Ra nges (mg/dL):
>=60 High (Desirable)
<50 Low (Undesirable) For Females
<40 Low (Undesirable) For Males NON-HDL CHOLESTEROL 11/05/2023 10:54:48 164 Above high normal <=159 (mg/dL) Final Non-HDL Cholesterol Referenc e Range (mg/dL):
<100 Target level for high risk ASCVD patient
<130 Optimal for general population
130-159 Near optimal for general population
160-189 Borderline High
190-219 High
>=220 Very High LDL, (calculated) 11/05/2023 10:54:48 139 Above high n ormal <=129 (mg/dL) Final LDL Cholesterol Reference Ra nges (mg/dL):
<70 Target level for high risk ASCVD patient
<100 Optimal for general population
100-129 Near optimal for general population
130-159 Borderline high
160-189 High
>=190 Very high Performing Location LABORATORY [facility] [place] - [address] [facility] [place] [address]
--- OUTSIDE RECORDS SUMMARY | 2024-03-17 22:12 | External Medical Summary ---
Author Name Unknown Address Unknown Organization [id number]:[facility] [place] [address] [place] [address] Laboratory Report Ordering Provider Test Date Status DAVID DISLA 11/05/2023 10:54:48 Final Observation Date Value Abnormality Reference (Units ) Status HbA1C 11/05/2023 10:54:48 6.1 Above high normal 4. 0-5.6 (%) Final The use of HbA1c to monitor glycemic status is based on normal hemoglobin and HbA composition. This test should not be used in patients with abnormal hemoglobin that affects the half life of the red blood cell or the in vivo glycation rates. Glucose, estimated average 11/05/2023 10:54:48 128 Above high normal <126 (mg/dL) Ricky brooks Performing Location LAB[facility] [place] - [address] [facility] [address]
--- OUTSIDE RECORDS SUMMARY | 2024-03-17 22:12 | External Medical Summary ---
Author Name Unknown Address Unknown Organization : Laboratory Report Ordering Provider Test Date Status SANCHEZ LOWERY 10/28/2023 05:20:00 Final Observation Date Value Abnormality Reference (Units ) Status REFERENCE LAB SCANNED REPORT 10/28/2023 05:20:00 See Scanned Report Final Performing Location
--- OUTSIDE RECORDS SUMMARY | 2024-03-17 22:12 | External Medical Summary | Summary of Care ---
Author Name Unknown Organization [facility] Address [address] [place] [address] Phone [phone] Care Team Providers Care Semaphore Operator Name Role Phone Fiona Novoa DO Primary Care Provider [phone] Reason for Visit * Reason Onset Date Comments Appointment 09/30/2023 Encounter Details Date Type Department Care Team (Late st Contact Info) Description 09/30/2023 Telephone [facility] [address] [place] [address] [facility] Annette Bolton, DO [address] [place] [id number] Appointment (//) Allergies Active Allergy Reactions Criticality Noted Date Comments Charlie Inhibitors 11/06/2018 Sitagliptin Other (Please comment) 02/22/2015 lightheadedness Statins 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 Dx E11.9 1 Each 1 01/14/2023 Active FreeStyle Lizbeth 2 SensorIndications:Ty pe 2 diabetes mellitus with hemoglobin A1c goal of less than 8.0% ([facility]) Use as directed. Dx E11.9 [...] as of this encounter (statuses as of 09/30/2023) Active Problems Problem Noted Date Diagnosed Date [...] as of this encounter (statuses as of 09/30/2023) Resolved Problems Problem Noted Date Diagnosed Date [...] as of this encounter (statuses as of 09/30/2023) Immunizations Name Administration Dates Next Due COVID-19 mRNA, LNP-s, No Pre serve, 2-Dose Series ([employer]) 02/14/2021,06/30/2020,06/09/2020 Covid-19, Mrna, Lnp-s, Pf, B ivalent, [...] Recorded PHQ Adult Total Score 0 04/24/2022 [facility] - Occupational Stress Questionnaire Answer [...] Telephone Encounter - Carlton Childs OSA - 09/30/2023 12:07 PM EDT [facility] Engagement Attempt Engagement: Engagement Attempt 1: Unable to contact Engagement Attempt 2: No data was found Home Information: No data was found Advance Care Planning (ACP): No data was found Has Living Will or Advance Directive: No data was found Anticipated Sub-Program: Focused Care Management (3-9 months) Confirmation of Sub-Program Type (by care cafe team member): No data was found Handoff Information: Current care team notified via: Donuts communication Current telemonitoring equipment: No data was found 09/29-lmom Looking at tamara 09/30 documented in this encounter Plan of Treatment Upcoming Encounters Date Type Department Care Team (Late st Contact Info) Description 10/29/2023 8:00 AM EDT Office Visit Family Practice [facility] [address] [place] [address] Fiona Novoa DO [address] [place] [address] 12/12/2023 9:30 AM EDT Cardiac Studies Cardiac Studies, [facility] [place] [address] 12/12/2023 10:30 AM EDT Imaging [facility] 2nd Floor Cardiology, [address] [place] [phone] Gw, Excess Time Radiology [address] [facility] [place] [address] 12/26/2023 11:00 AM EDT Office Visit Cardiology, [facility] [address] [facility] [place] [address] Gennaro Ace, PA-C [address] [facility] [place] [address] 06/09/2024 8:45 AM EDT Office Visit Urology, [facility] [address] [facility] [place] [address] Adolfo Tian MD [address] [place] [address] Health Maintenance Due Date Last Done Comments [...] Advance Directives occurred with: Patient Care Teams Semaphore Operator Relationship Specialty Start Date End Date Fiona Novoa DO [address] [place] [address] PCP - General Family Medicine 10/04/15 documented as of this encounter
--- OUTSIDE RECORDS SUMMARY | 2024-03-17 22:12 | External Medical Summary ---
Author Name Unknown Address Unknown Organization K01:[facility] [place] [address] [place] [address] Laboratory Report Ordering Provider Test Date Status [place] 11/05/2023 10:54:48 Final Observation Date Value Abnormality Reference (Units ) Status MYCODE SPECIMEN-SST 11/05/2023 10:54:48 Freezing of extracted DNA, whole blood and/or serum. Final Performing Location LABORATORY [facility] - [address] [place] [address]
--- NOTE | 2024-03-17 22:35 | Magnetic Resonance Report ---
Exam(s): MRI HEAD Without Contrast EXAM: MR Head Without Intravenous Contrast CLINICAL HISTORY: L sided facial droop. TECHNIQUE: Magnetic resonance images of the head/brain without intravenous contrast in multiple planes. COMPARISON: CT Brain 03-17-2024. MRI Brain 11-10-2020. FINDINGS: Brain: Age-appropriate central and peripheral atrophy. No acute stroke. Mild degree of supratentorial periventricular and subcortical white matter hyperintensities on FLAIR and T2-weighted images. No acute hemorrhage or abnormal extra-axial fluid collection. Ventricles: No midline shift. No ventriculomegaly. Bones/joints: Unremarkable. No acute fracture. Sinuses: Unremarkable as visualized. No acute sinusitis. Mastoid air cells: Unremarkable as visualized. No mastoid effusion. Orbits: Unremarkable as visualized. IMPRESSION: 1. No acute stroke or hemorrhage. 2. Nonspecific white matter changes most commonly seen with small vessel disease. Electronically signed by: Mike Joseph M.D. 03/17/24 22:34 PM
[2024-03-17] MEDS: hydrALAZINE HCL 20 MG/ML VIAL IV STA (23:40)
[2024-03-18] MEDS ORDERED: INFLUENZA VACC TS2024-25(65y+)/PF (IIV3) 0.5mL Syr IM ONE (00:07)
[2024-03-18] MEDS ORDERED: PNEUMOCOCCAL VACCINE (PCV20) 20-VAL CONJ-DIP CRM/PF 0.5 ML SYR IM ONE (00:07)
--- NOTE | 2024-03-18 00:26 | Communication Note ---
Date of Service: March 18, 2024 Made aware by RN of uncontrolled blood pressure upon arrival at the floor. SBP 230s. Heart rate 60 to 70s Patient asymptomatic as per RN. AP Hypertensive crisis Add amlodipine to regimen Will relay to AM provider.
[2024-03-18] MEDS: amLODIPine BESYLATE 5 MG TAB PO SCH (00:35)
[2024-03-18 06:07] LABS: Basophils # (auto) 0.07 K/uL (0.00-0.20); Eosinophils # (auto) 0.26 K/uL (0.00-0.50); Eosinophils % (auto) 3.5 %; Hematocrit (blood only) 38.2 % (42.0-52.0); Hemoglobin 12.8 g/dl (14.0-18.0); Immature Granulocytes # (auto) 0.05 K/uL (0.01-0.20); Immature Granulocytes % (auto) 0.7 %; Lymphocytes # (auto) 1.23 K/uL (1.20-3.40); Lymphocytes % (auto) 16.7 %; Mean Corpuscular Hemoglobin 31.4 pg (25.0-34.0); Mean Corpuscular Hgb Conc 33.5 g/dL (32.0-36.0); Mean Corpuscular Volume 93.9 fL (80.0-100.0); Monocytes # (auto) 0.95 K/uL (0.11-0.59); Monocytes % (auto) 12.9 %; Neutrophils # (auto) 4.79 K/uL (1.40-6.50); Neutrophils % (auto) 65.2 %; Platelet Count 116 K/uL (130-400); RDW Coefficient of Variation 14.4 % (11.5-14.5); RDW Standard Deviation 49.6 fL (36.4-46.3); Red Blood Count 4.07 M/uL (4.70-6.10); White Blood Count 7.35 K/ul (4.8-10.8)
[2024-03-18 06:31] LABS: BUN Creatinine Ratio 7.7 (10-20); Calcium 9.4 mg/dl (8.6-10.3); Creatinine Clr Calc Pharmacy 7.5 ml/min; Magnesium 2.1 mg/dl (1.7-2.4); Potassium 4.4 mmol/L (3.5-5.1)
[2024-03-18] MEDS: CHOLECALCIFEROL 25 MCG (1000 UNITS) TAB PO SCH (08:12)
[2024-03-18] MEDS: FERROUS SULFATE 325 MG TAB PO SCH (08:13)
[2024-03-18] MEDS: CYANOCOBALAMIN (B-12) 500 MCG TABLET PO SCH (08:13)
[2024-03-18] MEDS: LOSARTAN POTASSIUM 25 MG TAB PO SCH (08:13)
[2024-03-18] MEDS: EZETIMIBE 10 MG TAB PO SCH (08:13)
[2024-03-18] MEDS ORDERED: METOPROLOL SUCC 25MG EXT REL TAB PO SCH (09:00)
[2024-03-18] MEDS: HEPARIN SOD (PORCINE) 1000 UNIT/ML IV SCH (12:29)
[2024-03-18] MEDS: HEPARIN SOD (PORCINE) 1000 UNIT/ML IV ONE (12:29)
[2024-03-18] MEDS: OLANZapine 10 MG/2.1 ML SDV IM STA (13:55)
--- NOTE | 2024-03-18 14:16 | Hospitalist Progress Note ---
Date of Service March 18, 2024 Assessment & Plan (1) Stroke-like symptoms: Plan: Presented with right facial droop and garbled speech resolved within 5 minutes Initial CTA and CT scan of the head unremarkable Will get MRI to rule out any stroke Will observe in telemetry unit and get an echocardiogram MRI of the head has been negative for any stroke and will get echocardiogram to evaluate cardiac functions Does not have any more signs and or symptoms of TIA Will discuss with the benefits manager for possible administering baby aspirin to prevent stroke Acute confusion with combative behavior Happened to be after dialysis Code yan was called and he received IM Zyprexa 2.5 mg and also required wrist restraint Will observe (2) Hypertensive urgency: Plan: Initial blood pressure noted to be very high at systolic more than 200 Received intravenous labetalol and the blood pressure is coming down Denies any chest pain, shortness of breath or palpitation Blood pressure remains stable with current medications (3) Atrial fibrillation: Plan: History of atrial fibrillation was on Coumadin before Coumadin has been discontinued secondary to retroperitoneal bleed in 2020 Patient has been started with intravenous heparin and that will be discontinued. Currently the rate is controlled (4) Diabetes mellitus, type II: Plan: Has type 2 diabetes on insulin We will continue with current insulin regimen (5) Hyperlipidemia: Plan: Continue statin (6) ESRD (end stage renal disease) on dialysis: Plan: Missed his last hemodialysis Next dialysis tomorrow Nephrology consult Other chronic medical conditions remained stable DVT prophylaxis Subcu heparin CODE STATUS Full Discussed with the daughter in detail for his atrial fibrillation and the reason why he has not been on any anticoagulation Admission and Anticipated Discharge Date Admission Date: March 17, 2024 Subjective 03/18/2024 The patient was seen and examined in telemetry unit following dialysis He has been stable until back from dialysis and following that all of a sudden He became very confused and combative Code yan was called and he received IM Zyprexa and also required restraint to prevent harming himself and others Review of Systems Review of Systems: Unobtainable due to cognitive status Physical Exam Physical Exam: Lying in bed acute distress due to aggressiveness and unsteadiness Constitutional: well developed, well nourished and + ill appearing Eyes: PERRL, conjunctivae normal, anicteric sclerae ENMT: external ear and nose normal, oropharynx normal Neck: trachea midline, no thyromegaly Respiratory: normal respiratory effort, lungs clear to auscultation Cardiovascular: Rate/Rhythm: regular rate and regular rhythm; not tachycardic Heart Sounds: normal S1 and normal S2; no murmur Extremities: no edema Gastrointestinal (Abdomen): Inspection/Auscultation: normal bowel sounds; abdomen not distended Percussion/Palpation: abdomen soft; abdomen nontender Neurologic: normal touch/pain/proprioception and moves all extremities; no focal motor deficits Psychiatric: acute confusion with combative behavior Lymphatic: no cervical or axillary lymphadenopathy Results & Data Results & Data Vital Signs (Past 12 Hours) Vital Signs Temp Pulse Pulse Pulse Resp BP BP 03/18/24 13:00 78 102/60 03/18/24 12:30 88 94/46 L 03/18/24 12:00 79 95/65 L 03/18/24 11:30 59 L 112/57 L 03/18/24 11:00 56 L 204/90 H 03/18/24 10:30 56 L 190/99 H 03/18/24 10:00 69 210/83 H 03/18/24 09:50 36.5 C 71 03/18/24 07:56 36.5 C 75 17 168/79 H 03/18/24 07:30 69 03/18/24 03:00 36.4 C L 73 16 147/68 H Pulse Ox O2 Del Method 03/18/24 13:00 03/18/24 12:30 03/18/24 12:00 03/18/24 11:30 03/18/24 11:00 03/18/24 10:30 03/18/24 10:00 03/18/24 09:50 03/18/24 07:56 99 Room Air 03/18/24 07:30 03/18/24 03:00 95 Room Air Laboratory Results Short CBC 03/17/24 03/18/24 Range/Units 16:25 05:39 WBC 6.84 7.35 (4.8-10.8) K/ul Hgb 11.9 L 12.8 L (14.0-18.0) g/dl Hct 34.9 L 38.2 L (42.0-52.0) % Plt Count 113 L 116 L (130-400) K/uL BMP 03/17/24 03/18/24 16:25 05:39 Sodium 132 L 136 Potassium 4.3 4.4 Chloride 92 L 96 L Carbon Dioxide 28 26 BUN 54 H 59 H Creatinine 6.73 H* 7.63 H* D Glucose 144 H 103 H Calcium 9.2 9.4 Liver Function 03/17/24 Range/Units 16:25 Total Bilirubin 0.6 (0.2-1.0) mg/dl AST 17 (13-39) U/L ALT 9 (7-52) U/L Alkaline Phosphatase 93 (34-104) U/L Albumin 3.7 (3.4-5.0) gm/dl Medications Administered Current Inpatient Medications Amlodipine Besylate (Amlodipine Besylate 5 Mg Tab) 2.5 mg PO HS [facility] Stop: 04/16/24 23:29 Last Admin: 03/18/24 00:35 Dose: 2.5 mg Cyanocobalamin (Cyanocobalamin (B-12) 500 Mcg Tablet) 1,000 mcg PO QAM [facility] Stop: 04/17/24 08:59 Last Admin: 03/18/24 08:13 Dose: 1,000 mcg Ezetimibe (Ezetimibe 10 Mg Tab) 10 mg PO DAILY [facility] Stop: 04/17/24 08:59 Last Admin: 03/18/24 08:13 Dose: 10 mg Famotidine (Famotidine 20 Mg Tab) 20 mg PO DAILY PRN PRN Reason: Heartburn Stop: 04/16/24 18:55 Ferrous Sulfate (Ferrous Sulfate 325 Mg Tab) 325 mg PO QAM [facility] Stop: 04/17/24 08:59 Last Admin: 03/18/24 08:13 Dose: 325 mg Heparin Sodium (Porcine) (Heparin Sod 5,000 Unit/0.5 Ml Vial) 5,000 units SQ Q12 [facility] Stop: 04/16/24 20:59 Last Admin: 03/18/24 08:16 Dose: 5,000 units Insulin Aspart (Insulin Aspart Per Unit Charge) 0 units SC ACHS [facility] Stop: 04/16/24 20:59 Last Admin: 03/18/24 08:57 Dose: 2 units Losartan Potassium (Losartan Potassium 25 Mg Tab) 25 mg PO QAM [facility] Stop: 04/17/24 08:59 Last Admin: 03/18/24 08:13 Dose: 25 mg Metoprolol Succinate (Metoprolol Succ 25mg Ext Rel Tab) 25 mg PO BID [facility] Stop: 04/16/24 20:59 Last Admin: 03/18/24 08:35 Dose: 25 mg Vitamin D (Cholecalciferol 25 Mcg (1000 Units) Tab) 50 mcg PO QAM [facility] Stop: 04/17/24 08:59 Last Admin: 03/18/24 08:12 Dose: 50 mcg (4) Diabetes mellitus, type II Diabetes mellitus complication status: without complication Diabetes mellitus lobsterman insulin use: unspecified snf insulin use status Qualified Code(s): E11.9 - Type 2 diabetes mellitus without complications
[2024-03-18] MEDS: OLANZapine 10 MG/2.1 ML SDV IM ONE (14:34)
[2024-03-18] MEDS: risperiDONE 0.25 MG TAB PO STA (17:12)
--- NOTE | 2024-03-18 19:45 | Nephrology Consultation ---
Date of Consultation March 18, 2024 Assessment & Plan (1) Hypertensive urgency: uncontrolled HTN w/ encephalopathy and facial droop ; goal is sbp in 160-180s; can lower BP some since he won't be getting out of bed; significant BP lability as below he is anuric so no point to diuretics -continue losartan, toprol, amlodipine current doses >> needs toprol d/t AF hx >will give doxazosin 1mg this evening and qhs and extra dose of losartan 25 mg tonight -suggest prn hydralazine or labetalol overnight (2) ESRD (end stage renal disease) on dialysis: had HD today > tolerated 1.5 L UF ; behavioral issues on treatment -next HD 1/3 or as needs dictate (3) Autonomic dysfunction with type 2 diabetes mellitus: labile BP ranging from 95-230 systolic, new on dialysis care w/ BP med adjustments >> challenge is he has to be able to ambulate and BP falls w/ standing History of Present Illness Reason for Consultation: esrd on HD Requesting Physician: Dr Briggs Attending Physician: Harper Briggs MD History of Present Illness 78 y/o M whom I'm asked to see for dialysis needs was admitted here yesterday for evaluation of stroke like symptoms after his daughter noticed R sided facial droop while eating along w/ acute confusion and garbled speech; sx resolved w/in 5 minutes per report. PMH ESRD on HD incenter via [facility], atrial fibrillation not on anticoagulation 2/2 retroperitoneal bleed 2020, longstanding diabetes at times poorly controlled, severe autonomic dysfunction w/ large drops in his blood pressure going from seated to standing position (often in the order of 30-50 mmHg); chronic ambulatory dysfunction (walker dependent), concern for progressive cognitive impairment/dementia for which his family has been seeking services. Pt lives alone w/ adult children nearby. He dialyzes under [facility] care at [facility]. His systolic BP is often quite elevated while seated but he also has orthostatic sx and can drop his BP quite readily at HD. No focal neurologic deficits noted on arrival to ED but marked HTN w/ sBP >2oo noted and he received labetalol. MRI brain and CT angio neck showed no acute stroke concerns or bleeding. His SBP was in 230s on arrival to floor and amlodipine was added to his regimen. I arranged for him to get his routine HD today >> he tolerated 1.5 L w/o cramping or hypotension (pretty good for him); but he did have compliance issues during tx which is very atypical for him << he was pulling at lines and kept attempting to get out of bed. On arrival back to his reoom he continued effots to get out of bed. A code heredia was called. When I saw the pt he was in his bed in restraints and deeply confused > oriented to self only and unable to give much ROS apart from assuring me he had no pain and no dyspnea. Allergies Allergy/AdvReac Type Severity Reaction Status Date / Time LUCHO Inhibitors Allergy Unknown Unknown Verified 10/25/22 11:42 reaction (Per [facility] records) sitagliptin AdvReac Unknown Lightheadedness, Verified 10/25/22 11:42 upper abdominal pain [id number] Reductase AdvReac Unknown Myopathy Verified 10/25/22 11:42 Inhibitor [Qmpbqnn-Avx-Nmf Reductase Inhibitor] Home Medications Medication Instructions Recorded Confirmed Type cholecalciferol (vitamin D3) 25 2,000 unit PO QAM 10/27/18 03/17/24 History mcg (1,000 unit) capsule (Vitamin D3) cyanocobalamin (vitamin B-12) 1,000 mcg PO QAM 10/27/18 03/17/24 History 1,000 mcg tablet (Vitamin B-12) famotidine 20 mg tablet (Pepcid) 20 mg PO [id number] PRN Heartburn 06/01/20 03/17/24 History ferrous sulfate 325 mg (65 mg 325 mg PO QAM 05/04/21 03/17/24 History iron) tablet (iron) ezetimibe 10 mg tablet 10 mg PO DAILY 08/16/21 03/17/24 History vitamin E 200 unit tablet 45 mg PO QPM 08/31/21 10/25/22 History calcium acetate(phosphat bind) 667 667 mg 03/17/24 History mg capsule losartan 50 mg tablet 25 mg PO QAM 03/17/24 03/17/24 History metoprolol succinate 25 mg See Rx Instructions .Route .COMPLEX 03/17/24 03/17/24 History tablet,extended release 24 hr Patient History Medical History History of blood transfusion 2020 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 Currently on transplant list- RENAL S XIOMY Gastric ulcer hx Depression Anxiety Anemia Chronic Surgical History S/P dialysis catheter insertion 04/2021 [place] Hx of abdominal surgery removal of Peritoneal Diaylsis cath (11/2020) History of tooth extraction History of peritoneal dialysis Insertion of CAPD catheter (09/23/20): Grade view 2, MAC #3, ETT 7.5 at [facility] Reposition of dialysis catheter, perm cath placement (10/28/20): Grade view 2, Tian #2, ETT 7.5 at [facility] Peritoneal dialysis catheter removal (11/22/20): MAC at [facility] History of esophagogastroduodenoscopy (EGD) EGD (01/11/21): MAC at [facility] History of cataract surgery R/L S/P colonoscopy with polypectomy Family History Mother Diabetes Breast cancer Family history of diabetes mellitus Father Family history of diabetes mellitus Other No family history of adverse response to anesthesia Social History Smoking Status: Former smoker Tobacco Type: Cigarettes Second Hand Exposure: No; Do You Dip or Chew Tobacco: No; Hx Alcohol Use: No Hx Substance Use: No Preferred Language: Setswana Communication Ability: Effective Visual Impairment: No Limitations Electromechanical Assembly Technician Required: No Beliefs That Will Affect Care: None marital status: / Current Living Situation: Family Current Living Situation Comment: with daughter How many Children do You have: 2 Feels Safe at Home: Yes Safety Concerns: Feels Safe At This Time Assistive Devices: Cane, Hearing Aid - Right and Hospital Bed Review of Systems 2 Review of Systems: Unobtainable due to cognitive status (delirium) Physical Exam 2 Constitutional: well developed, + thin, + altered mental status, + behavioral limitations and + frail appearing Eyes: EOM intact bilaterally ENMT: Mouth: + dry oral mucous membranes Respiratory: normal respiratory effort Auscultation: + diminished lung sounds Cardiovascular: Rate/Rhythm: + irregularly irregular Extremities: no edema Gastrointestinal (Abdomen): Inspection/Auscultation: normal bowel sounds P ercussion/Palpation: abdomen soft; abdomen nontender Musculoskeletal: Extremities: strength 5/5 throughout Skin: no rashes, warm and dry Neurologic: quintero, fluent speech, no tremor Psychiatric: Orientation: alert and oriented to person; + not oriented to place and + not oriented to time Results & Data Vital Signs (Past 12 Hours) Vital Signs Temp Pulse Pulse Pulse Resp BP BP 03/18/24 16:21 36.5 C 03/18/24 15:44 90 03/18/24 15:26 90 16 03/18/24 13:15 36.6 C 78 03/18/24 13:00 78 102/60 03/18/24 12:30 88 94/46 L 03/18/24 12:00 79 95/65 L 03/18/24 11:30 59 L 112/57 L 03/18/24 11:00 56 L 204/90 H 03/18/24 10:30 56 L 190/99 H 03/18/24 10:00 69 210/83 H 03/18/24 09:50 36.5 C 71 03/18/24 07:56 36.5 C 75 17 168/79 H BP Pulse Ox O2 Del Method 03/18/24 16:21 03/18/24 15:44 03/18/24 15:26 176/68 H 96 Room Air 03/18/24 13:15 126/72 03/18/24 13:00 03/18/24 12:30 03/18/24 12:00 03/18/24 11:30 03/18/24 11:00 03/18/24 10:30 03/18/24 10:00 03/18/24 09:50 03/18/24 07:56 99 Room Air Laboratory Results 03/18/24 05:39 03/18/24 05:39 Diagnostic Findings imaging as above
[2024-03-18] MEDS: LOSARTAN POTASSIUM 25 MG TAB PO ONE (20:33)
[2024-03-18] MEDS: DOXAZOSIN MESYLATE 1 MG TAB PO SCH (20:43)
[2024-03-18] MEDS ORDERED: risperiDONE 0.5 MG TABLET PO SCH (21:00)
--- NOTE | 2024-03-18 22:51 | Electrocardiogram Report ---
Test Reason : Blood Pressure : */* mmHG Vent. Rate : 79 BPM Atrial Rate : * BPM P-R Int : * ms QRS Dur : 88 ms QT Int : 396 ms P-R-T Axes : * -55 34 degrees QTcB Int : 454 ms Atrial fibrillation with premature ventricular or aberrantly conducted complexes Left axis deviation Anteroseptal infarct , age undetermined Abnormal ECG When compared with ECG of 18-Aug-2021 05:27, Anteroseptal infarct is now Present Confirmed by Azeem Hopkins ([id number]) on 03/18/2024 10:50:57 PM Referred By: REFERRED SELF Confirmed By: Azeem Hopkins
[2024-03-19] MEDS: OLANZapine 10 MG/2.1 ML SDV IM PRN (00:07)
[2024-03-19 10:06] LABS: Hep B Surface Ag with confirm Prelim Positive (Negative)
[2024-03-19 10:07] LABS: Hepatitis B Surface Antibody Immune
--- NOTE | 2024-03-19 11:30 | Psychiatric Consultation ---
Date of Consultation March 19, 2024 Impression / Recommendations Impression Diagnostically consistent with encephalopathy/delirium. Unfortunately there are no known medications to cure or shorten the duration of delirium; rather antipsychotics are used at times to help with sleep/appetite/psychomotor agitation and hallucinations if these symptoms are causing significant distress and/or interfering with acute safety. Duration of delirium varies broadly with persistent delirium (defined as lasting for weeks or months) occurring frequently with [id number]% of patients exhibiting some symptoms of delirium at 6 months after symptom onset, see:Anastasia Godoy., Kayy Posey., Fortunato Jordan.et al.Delirium.Alicja Rev Dis Primers6, 90 (2020). [email or web address]. MRI brain on 03/17/2024 showed small vessel disease and white matter changes per radiologist report suggestive of possible vascular dementia component but apparently he has been able to live independently and typically only has brief periods of confusion that resolve within a few hours of his dialysis at baseline. Would continue use of olanzapine for acute behavioral emergency given no dosage adjustments required for kidney impairment/dialysis and safer from a cardiac standpoint than ziprasidone and haldol. Hopefully use of a scheduled po antipsychotic for short-term management of agitation can help to avoid need for IM medications and can then allow for discontinuation of soft restraints if effective. Overall, I spent a total of 45 minutes with this case including review of chart records, review of labwork, review of EKG QTc, direct evaluation of the patient at bedside, counseling the patient, discussion of the patient with the Nurse and with the hospitalist provider, discussion with the psychiatric liason during clinical rounds, and documentation in the electronic health record. (1) Delirium: (2) ESRD (end stage renal disease) on dialysis: (3) A-fib: Atrial fibrillation type: unspecified chronic Qualified Code(s): I48.20 - Chronic atrial fibrillation, unspecified Plan -1-on-1 prn given level of agitation -Consider starting scheduled seroquel 12.5 mg qhs and can titrate up to 25mg BID for behavioral management as needed; would check EKG QTc routinely as tolerated -Consider melatonin 3mg qhs -Continue medical workup to rule out and treat any underlying causes contributing to potential delirium, avoid or limit use of deliriogenic medica tions (benzodiazepines, opioids, anticholinergics) -Continue with delirium prevention measures: raising blinds during the day, closing at night, frequent re-orientation, contact with family/friends, e xplaining procedures/nursing care measures prior to physical contact, correct any hearing and visual impairments -For behavioral emergency: * could try olanzapine 5mg ODT BID prn for agitation * for acute aggression: olanzapine 5 mg IM x 1 (DO NOT exceed 10mg per 24 hours, check EKG if IM dose required, NEVER co-administer with IM or IV benzodiazepines). Psych History Identifying Data 78 yo man with a history of end-stage renal disease on hemodialysis, atrial fibrillation not on any anticoagulation due to retroperitoneal bleed while on Coumadin on 01/2021, diabetes type 2, hypertension, hyperlipidemia admitted medically for stroke-like symptoms. Psychiatry was consulted for agitation. Chief Complaint "3 or 4 Pepsi's". History of Present Illness Galen was admitted for increased confusion and concern for possible stroke. Now being treated for hypertensive urgency. Yesterday became confused and started pulling at his dialysis lines and code heredia called. Recieved IM zyprexa 2.5mg IM at 2pm yesterday and then 12am overnight. Still in soft restraints. Ongoing periods of aburpt agitation. Per RN he made verbal threats toward her this mor janelle. Mid-morning he is lying in bed, has pulled covers off of himself. Responds and smiles to his name. Otherwise not oriented states "I don't even know where anything is in this place". Attempted to re-orient. Did respond to other questions, at one point mentioned pepsi but declined off for a drink. Allergies Allergy/AdvReac Type Severity Reaction Status Date / Time LUCHO Inhibitors Allergy Unknown Unknown Verified 10/25/22 11:42 reaction (Per S records) sitagliptin AdvReac Unknown Lightheadedness, Verified 10/25/22 11:42 upper abdominal pain Dbszwnu-MHV-ScL Reductase AdvReac Unknown Myopathy Verified 10/25/22 11:42 Inhibitor [Nzkwzvk-Jyu-Lbq Reductase Inhibitor] Home Medications Medication Instructions Recorded Confirmed Type cholecalciferol (vitamin D3) 25 2,000 unit PO QAM 10/27/18 03/17/24 History mcg (1,000 unit) capsule (Vitamin D3) cyanocobalamin (vitamin B-12) 1,000 mcg PO QAM 10/27/18 03/17/24 History 1,000 mcg tablet (Vitamin B-12) famotidine 20 mg tablet (Pepcid) 20 mg PO [id number] PRN Heartburn 06/01/20 03/17/24 History ferrous sulfate 325 mg (65 mg 325 mg PO QAM 05/04/21 03/17/24 History iron) tablet (iron) ezetimibe 10 mg tablet 10 mg PO DAILY 08/16/21 03/17/24 History vitamin E 200 unit tablet 45 mg PO QPM 08/31/21 10/25/22 History calcium acetate(phosphat bind) 667 667 mg 03/17/24 History mg capsule losartan 50 mg tablet 25 mg PO QAM 03/17/24 03/17/24 History metoprolol succinate 25 mg See Rx Instructions .Route .COMPLEX 03/17/24 03/17/24 History tablet,extended release 24 hr Patient History Medical History History of blood transfusion 2020 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 Currently on transplant list- [facility] Gastric ulcer hx Depression Anxiety Anemia Chronic Surgical History S/P dialysis catheter insertion 04/2021 [place] Hx of abdominal surgery removal of Peritoneal Diaylsis cath (11/2020) History of tooth extraction History of peritoneal dialysis Insertion of CAPD catheter (09/23/20): Grade view 2, MAC #3, ETT 7.5 at [facility] Reposition of dialysis catheter, perm cath placement (10/28/20): Grade view 2, Tian #2, ETT 7.5 at [facility] Peritoneal dialysis catheter removal (11/22/20): MAC at [facility] History of esophagogastroduodenoscopy (EGD) EGD (01/11/21): MAC at [facility] History of cataract surgery R/L S/P colonoscopy with polypectomy Family History Mother Diabetes Breast cancer Family history of diabetes mellitus Father Family history of diabetes mellitus Other No family history of adverse response to anesthesia Social History Smoking Status: Former smoker Tobacco Type: Cigarettes Second Hand Exposure: No; Do You Dip or Chew Tobacco: No; Hx Alcohol Use: No Hx Substance Use: No Preferred Language: Tamazight Communication Ability: Effective Visual Impairment: No Limitations Warehouse Analyst Required: No Beliefs That Will Affect Care: None marital status: / Current Living Situation: Family Current Living Situation Comment: with daughter How many Children do You have: 2 Feels Safe at Home: Yes Safety Concerns: Feels Safe At This Time Assistive Devices: Cane, Hearing Aid - Right and Hospital Bed Physical Exam Psychiatric: Orientation: alert and oriented to person; + not oriented to place and + not oriented to time Apperance: + disheveled Eye Contact: good eye contact Motor Behavior: no abnormal motor movements Speech: + abnormal rate/rhythm/volume of speech Affect: + labile affect Thought Process: + looseness of associations Cognition: + recent memory not intact and + attention not intact Insight: + poor insight Judgment: + poor judgement Vital Signs (Past 24 Hours): Last Vital Signs Temp 36.6 C 03/19/24 08:08 Pulse 81 03/19/24 08:08 Resp 18 03/19/24 08:08 BP 191/72 H 03/19/24 08:08 Pulse Ox 100 03/19/24 08:08 O2 Del Method Room Air 03/19/24 08:08 Results & Data (PSY) Medications Administered Amlodipine Besylate (Amlodipine Besylate 5 Mg Tab) 2.5 mg PO HS [place] Stop: 04/16/24 23:29 Last Admin: 03/18/24 20:32 Dose: 2.5 mg Documented By: Admin: 03/18/24 00:35 Dose: 2.5 mg Documented By: KRISTI Cyanocobalamin (Cyanocobalamin (B-12) 500 Mcg Tablet) 1,000 mcg PO QAM [place] Stop: 04/17/24 08:59 Last Admin: 03/19/24 08:57 Dose: 1,000 mcg Documented By: Admin: 03/18/24 08:13 Dose: 1,000 mcg Documented By: OSEAS Doxazosin Mesylate (Doxazosin Mesylate 1 Mg Tab) 1 mg PO HS [facility] Stop: 04/17/24 20:59 Last Admin: 03/18/24 20:43 Dose: 1 mg Documented By: ZEE Ezetimibe (Ezetimibe 10 Mg Tab) 10 mg PO DAILY [facility] Stop: 04/17/24 08:59 Last Admin: 03/19/24 08:57 Dose: 10 mg Documented By: Admin: 03/18/24 08:13 Dose: 10 mg Documented By: OSEAS Ferrous Sulfate (Ferrous Sulfate 325 Mg Tab) 325 mg [facility] [place] Stop: 04/17/24 08:59 Last Admin: 03/19/24 08:57 Dose: 325 mg Documented By: Admin: 03/18/24 08:13 Dose: 325 mg Documented By: OSEAS Heparin Sodium (Porcine) (Heparin Sod 5,000 Unit/0.5 Ml Vial) 5,000 units SQ Q12 [facility] Stop: 04/16/24 20:59 Last Admin: 03/19/24 08:54 Dose: 5,000 units Documented By: Admin: 03/18/24 20:41 Dose: 5,000 units Documented By: Admin: 03/18/24 08:16 Dose: 5,000 units Documented By: Admin: 03/17/24 21:56 Dose: 5,000 units Documented By: URSULA Insulin Aspart (Insulin Aspart Per Unit Charge) 0 units SC ACHS [facility] Stop: 04/16/24 20:59 Last Admin: 03/19/24 08:40 Dose: Not Given Documented By: Admin: 03/18/24 20:39 Dose: Not Given Documented By: Admin: 03/18/24 17:27 Dose: Not Given Documented By: Admin: 03/18/24 14:20 Dose: Not Given Documented By: Admin: 03/18/24 08:57 Dose: 2 units Documented By: OSEAS Co-signed By: NICK Admin: 03/17/24 20:42 Dose: Not Given Documented By: URSULA Losartan Potassium (Losartan Potassium 25 Mg Tab) 25 mg PO QAM [facility] Stop: 04/17/24 08:59 Last Admin: 03/19/24 08:56 Dose: 25 mg Documented By: Admin: 03/18/24 08:13 Dose: 25 mg Documented By: OSEAS Metoprolol Succinate (Metoprolol Succ 25mg Ext Rel Tab) 25 mg PO BID [facility] Stop: 04/16/24 20:59 Last Admin: 03/19/24 08:57 Dose: 25 mg Documented By: Admin: 03/18/24 20:34 Dose: 25 mg Documented By: Admin: 03/18/24 08:35 Dose: 25 mg Documented By: Admin: 03/17/24 22:13 Dose: 25 mg Documented By: URSULA Olanzapine (Olanzapine 10 Mg/2.1 Ml Sdv) 2.5 mg IM Q6H PRN PRN Reason: Agitation Stop: 04/17/24 18:44 Last Admin: 03/19/24 00:07 Dose: 2.5 mg Documented By: ZEE Vitamin D (Cholecalciferol 25 Mcg (1000 Units) Tab) 50 mcg PO QAM [facility] Stop: 04/17/24 08:59 Last Admin: 03/19/24 08:56 Dose: 50 mcg Documented By: Admin: 03/18/24 08:12 Dose: 50 mcg Documented By: OSEAS Coding Level of Care Code 12105 IN/OBS CONSULT LVL 3,45M Diagnoses Delirium R41.0 ESRD (end stage renal disease) on dialysis N18.6; Z99.2 A-fib I48.20 Atrial fibrillation type: unspecified chronic
[2024-03-19] MEDS: OLANZapine ZYDIS 5 MG ORALLY DIS. TAB PO PRN (14:11)
--- NOTE | 2024-03-19 16:13 | Hospitalist Progress Note ---
Date of Service March 19, 2024 Assessment & Plan (1) Stroke-like symptoms: Plan: Presented with right facial droop and garbled speech resolved within 5 minutes Initial CTA and CT scan of the head unremarkable Will get MRI to rule out any stroke Will observe in telemetry unit and get an echocardiogram MRI of the head has been negative for any stroke and will get echocardiogram to evaluate cardiac functions Does not have any more signs and or symptoms of TIA Will discuss with the national accounts sales for possible administering baby aspirin to prevent stroke No more signs and or symptoms of Acute confusion with combative behavior Happened to be after dialysis Code yan was called and he received IM Zyprexa 2.5 mg and also required wrist restraint Has been requiring restraint and the confusion is persisting The daughter and the son feel that this time the confusion is worse compared with before Appreciate psychiatrist input and recommendation The medications have been updated as per psychiatrist recommendation (2) Hypertensive urgency: Plan: Initial blood pressure noted to be very high at systolic more than 200 Received intravenous labetalol and the blood pressure is coming down Denies any chest pain, shortness of breath or palpitation Blood pressure remains stable with current medications Blood pressure seems to be at the lower side at 99/45 (3) Atrial fibrillation: Plan: History of atrial fibrillation was on Coumadin before Coumadin has been discontinued secondary to retroperitoneal bleed in 2020 Patient has been started with intravenous heparin and that will be discontinued. Currently the rate is controlled (4) Diabetes mellitus, type II: Plan: Has type 2 diabetes on insulin We will continue with current insulin regimen (5) Hyperlipidemia: Plan: Continue statin (6) ESRD (end stage renal disease) on dialysis: Plan: Missed his last hemodialysis Next dialysis tomorrow Nephrology consult Other chronic medical conditions remained stable DVT prophylaxis Subcu heparin CODE STATUS Full Discussed with the daughter in detail for his atrial fibrillation and the reason why he has not been on any anticoagulation Admission and Anticipated Discharge Date Admission Date: March 17, 2024 Subjective 03/18/2024 The patient was seen and examined in telemetry unit following dialysis He has been stable until back from dialysis and following that all of a sudden He became very confused and combative Code yan was called and he received IM Zyprexa and also required restraint to prevent harming himself and others 03/19/2024 The patient was seen and examined in telemetry unit He remains agitated and trying to get out of bed and is still requiring restraint Remains otherwise hemodynamically stable Review of Systems Review of Systems: All systems reviewed and are unremarkable except as noted below Physical Exam Physical Exam: Lying in bed acute distress due to aggressiveness and unsteadiness Constitutional: well developed, well nourished and + ill appearing Eyes: PERRL, conjunctivae normal, anicteric sclerae ENMT: external ear and nose normal, oropharynx normal Neck: trachea midline, no thyromegaly Respiratory: normal respiratory effort, lungs clear to auscultation Cardiovascular: Rate/Rhythm: regular rate and regular rhythm; not tachycardic Heart Sounds: normal S1 and normal S2; no murmur Extremities: no edema Gastrointestinal (Abdomen): Inspection/Auscultation: normal bowel sounds; abdomen not distended Percussion/Palpation: abdomen soft; abdomen nontender Neurologic: normal touch/pain/proprioception and moves all extremities; no focal motor deficits Lymphatic: no cervical or axillary lymphadenopathy Results & Data Results & Data Vital Signs (Past 12 Hours) Vital Signs Temp Pulse Pulse Resp BP BP Pulse Ox 03/19/24 15:26 36.6 C 85 20 99/45 L 99 03/19/24 14:19 73 03/19/24 11:32 36.2 C L 82 18 185/45 H 99 03/19/24 08:08 36.6 C 81 18 191/72 H 100 03/19/24 08:00 79 03/19/24 08:00 O2 Del Method 03/19/24 15:26 Room Air 03/19/24 14:19 03/19/24 11:32 Room Air 03/19/24 08:08 Room Air 03/19/24 08:00 03/19/24 08:00 Room Air Medications Administered Current Inpatient Medications Amlodipine Besylate (Amlodipine Besylate 5 Mg Tab) 2.5 mg PO [place] Stop: 04/16/24 23:29 Last Admin: 03/18/24 20:32 Dose: 2.5 mg Cyanocobalamin (Cyanocobalamin (B-12) 500 Mcg Tablet) 1,000 mcg PO QA [facility] Stop: 04/17/24 08:59 Last Admin: 03/19/24 08:57 Dose: 1,000 mcg Doxazosin Mesylate (Doxazosin Mesylate 1 Mg Tab) 1 mg PO [place] Stop: 04/17/24 20:59 Last Admin: 03/18/24 20:43 Dose: 1 mg Ezetimibe (Ezetimibe 10 Mg Tab) 10 mg PO DAILY [facility] Stop: 04/17/24 08:59 Last Admin: 03/19/24 08:57 Dose: 10 mg Famotidine (Famotidine 20 Mg Tab) 20 mg PO DAILY PRN PRN Reason: Heartburn Stop: 04/16/24 18:55 Ferrous Sulfate (Ferrous Sulfate 325 Mg Tab) 325 mg PO QAM [facility] Stop: 04/17/24 08:59 Last Admin: 03/19/24 08:57 Dose: 325 mg Heparin Sodium (Porcine) (Heparin Sod 5,000 Unit/0.5 Ml Vial) 5,000 units SQ Q12 [facility] Stop: 04/16/24 20:59 Last Admin: 03/19/24 08:54 Dose: 5,000 units Insulin Aspart (Insulin Aspart Per Unit Charge) 0 units SC ACHS [facility] Stop: 04/16/24 20:59 Last Admin: 03/19/24 13:04 Dose: 5 units Losartan Potassium (Losartan Potassium 25 Mg Tab) 25 mg PO QAM [facility] Stop: 04/17/24 08:59 Last Admin: 03/19/24 08:56 Dose: 25 mg Melatonin (Melatonin 3 Mg Tab) 3 mg PO HS PRN PRN Reason: Sleep Stop: 04/18/24 13:26 Metoprolol Succinate (Metoprolol Succ 25mg Ext Rel Tab) 25 mg PO BID [facility] Stop: 04/16/24 20:59 Last Admin: 03/19/24 08:57 Dose: 25 mg Olanzapine (Olanzapine Zydis 5 Mg Orally Dis. 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
--- NOTE | 2024-03-19 18:41 | Nephrology Progress Note ---
Date of Service March 19, 2024 Assessment & Plan (1) Hypertensive urgency: Plan: uncontrolled HTN w/ encephalopathy and facial droop ; goal is sbp in 160-180s; can lower BP some since he won't be getting out of bed; significant BP lability as below he is anuric so no point to diuretics BP is consistently higher in R arm and should ideally as able be taken there last BP low but on his L calf at 1530 -continue losartan, toprol, amlodipine, doxazosin current doses >> needs toprol d/t AF hx >may well miss BP med doses if remains as obtunded as currently -suggest prn hydralazine or labetalol overnight (2) ESRD (end stage renal disease) on dialysis: Plan: for HD tomorrow; on 03/18, tolerated 1.5 L UF ; behavioral issues on treatment >> will need sitter or /and medication and/or restraints -next HD 03/20 or as needs dictate (3) Autonomic dysfunction with type 2 diabetes mellitus: Plan: labile BP ranging from 95-230 systolic, new on dialysis care w/ BP med adjustments >> challenge is he has to be able to ambulate and BP falls w/ standing Admission and Anticipated Discharge Date Admission Date: March 17, 2024 Subjective seen at 1600; d/w RN > had IM zyprexa ON and had oral zyprexa this afternoon >> initially this afternoon was extremely agitated after dose but then sedated. Review of Systems 2 Review of Systems: Unobtainable due to reduced consciousness Physical Exam 2 Constitutional: well developed, + thin, + altered mental status, + behavioral limitations (in soft BL wrist restraints), + frail appearing and + lethargic ( snoring mostly; then cries out; difficult to arouse) Eyes: EOM intact bilaterally ENMT: Mouth: + dry oral mucous membranes Respiratory: normal respiratory effort Auscultation: + diminished lung sounds Cardiovascular: Rate/Rhythm: + irregularly irregular Extremities: no edema Gastrointestinal (Abdomen): Inspection/Auscultation: normal bowel sounds P ercussion/Palpation: abdomen soft; abdomen nontender Musculoskeletal: Extremities: strength 5/5 throughout Skin: no rashes, warm and dry Neurologic: snoring, difficult to arouse; opens eyes briefly then straight back asleep Results & Data Vital Signs (Past 12 Hours) Vital Signs Temp Pulse Pulse Resp BP BP Pulse Ox 03/19/24 15:26 36.6 C 85 20 99/45 L 99 03/19/24 14:19 73 03/19/24 11:32 36.2 C L 82 18 185/45 H 99 03/19/24 08:08 36.6 C 81 18 191/72 H 100 03/19/24 08:00 79 03/19/24 08:00 O2 Del Method 03/19/24 15:26 Room Air 03/19/24 14:19 03/19/24 11:32 Room Air 03/19/24 08:08 Room Air 03/19/24 08:00 03/19/24 08:00 Room Air Laboratory Results 03/18/24 05:39 03/18/24 05:39
[2024-03-19] MEDS: QUEtiapine FUMARATE 25 MG TABLET PO SCH (20:17)
[2024-03-19] MEDS: MELATONIN 3 MG TAB PO PRN (20:17)
[2024-03-20 09:47] LABS: Hematocrit (blood only) 37.9 % (42.0-52.0); Mean Corpuscular Hemoglobin 32.7 pg (25.0-34.0); Mean Corpuscular Hgb Conc 34.3 g/dL (32.0-36.0); Mean Corpuscular Volume 95.2 fL (80.0-100.0); Mean Platelet Volume 11.9 fL (9.4-12.4); Platelet Count 116 K/uL (130-400); RDW Coefficient of Variation 14.6 % (11.5-14.5); RDW Standard Deviation 51.1 fL (36.4-46.3); Red Blood Count 3.98 M/uL (4.70-6.10); White Blood Count 9.14 K/ul (4.8-10.8)
--- NOTE | 2024-03-20 09:48 | Dialysis Progress Note ---
Date of Service March 20, 2024 Assessment & Plan Admission and Anticipated Discharge Date Admission Date: March 17, 2024 Subjective Assessment & Plan (1) Hypertensive urgency: Plan: uncontrolled HTN w/ encephalopathy and facial droop ; goal is sbp in 160-180s; can lower BP some since he won't be getting out of bed; significant BP lability as below he is anuric so no point to diuretics BP is consistently higher in R arm and should ideally as able be taken there continue losartan, toprol, amlodipine, doxazosin current doses . needs toprol d/t AF hx may well miss BP med doses if remains as obtunded as currently suggest prn hydralazine or labetalol overnight. Last 4-5 BP readings are fine (2) ESRD (end stage renal disease) on dialysis: Plan: HD today and will do as Rxed. Just started so will see how he does. tolerated 1.5 L UF last Rx behavioral issues on treatment but currently sedated with Zyprexa. (3) Autonomic dysfunction with type 2 diabetes mellitus: Plan: labile BP ranging from 95-230 systolic, new on dialysis care w/ BP med adjustments >> challenge is he has to be able to ambulate and BP falls w/ standing Subjective seen in dialysis. Vital signs fine. patient currently seems sedated after Zyprexa but was very agitated and combative before. CVC fine Review of Systems Review of Systems: Unobtainable due to reduced consciousness Physical Exam Constitutional: well developed, + thin, + altered mental status, + behavioral limitations (in soft BL wrist restraints), + frail appearing and + lethargic ( snoring mostly; then cries out; difficult to arouse) Eyes: EOM intact bilaterally ENMT: Mouth: + dry oral mucous membranes Respiratory: normal respiratory effort Auscultation: + diminished lung sounds Cardiovascular: Rate/Rhythm: + irregularly irregular Extremities: no edema Gastrointestinal (Abdomen): Inspection/Auscultation: normal bowel sounds Percussion/Palpation: abdomen soft; abdomen nontender Musculoskeletal: Extremities: strength 5/5 throughout Skin: no rashes, warm and dry Neurologic: snoring, difficult to arouse; opens eyes briefly then straight back asleep Results & Data Vital Signs (Past 12 Hours) Vital Signs Temp Pulse Pulse Resp BP BP Pulse Ox 03/20/24 08:04 36.0 C L 78 16 148/72 H 97 03/20/24 08:00 72 03/19/24 23:00 80 03/19/24 22:40 36.6 C 69 19 119/51 L 96 O2 Del Method 03/20/24 08:04 Room Air 03/20/24 08:00 03/19/24 23:00 03/19/24 22:40 Room Air
[2024-03-20 10:08] LABS: BUN Creatinine Ratio 7.3 (10-20); Calcium 9.7 mg/dl (8.6-10.3); Creatinine Clr Calc Pharmacy 7.2 ml/min; Potassium 4.8 mmol/L (3.5-5.1)
[2024-03-20] MEDS: HEPARIN SOD (PORCINE) 1000 UNIT/ML IV ONE (10:19)
[2024-03-20] MEDS: ONDANSETRON INJ 2 MG/ML 2 ML VIAL IV PRN (11:06)
[2024-03-20] MEDS: HEPARIN SOD (PORCINE) 1000 UNIT/ML IV SCH (11:30)
[2024-03-20 12:37] LABS: iSTAT Arterial Blood Gas HCO3 23 meg/L (19-24); iSTAT Arterial Blood Gas pCO2 38 mmHg (35-46); iSTAT Arterial Blood Gas pH 7.39 (7.35-7.45); iSTAT Arterial Blood Gas pO2 193 mmHg (80-95); iSTAT Carbon Dioxide 24 mmol/L (24-31); iSTAT Hematocrit 39 % (42-52); iSTAT Hemoglobin 13.3 g/dl (14.0-18.0); iSTAT Potassium 4.1 mmol/L (3.3-5.0); iSTAT Sodium 134 mmol/L (135-144)
[2024-03-20] MEDS: SODIUM CHLORIDE 0.9% 500 ML IV ONE (12:40)
--- NOTE | 2024-03-20 12:42 | XRay Report ---
XR chest 1V portable CLINICAL HISTORY: Aspiration. COMPARISON STUDY: Chest radiograph August 16, 2021. FINDINGS: Dual lumen right internal jugular central venous catheter is in place. There is no pneumoth orax or pleural effusion. There is no consolidation. There is no evidence for pulmonary edema. Cardio mediastinal silhouette is unremarkable. IMPRESSION: No acute cardiopulmonary findings. ACT 112: Negative or not required by law. Electronically signed by: Oumar Gann M.D. 03/20/2024 12:41 PM
[2024-03-20 12:44] LABS: Basophils # (auto) 0.06 K/uL (0.00-0.20); Basophils % (auto) 0.6 %; Eosinophils # (auto) 0.01 K/uL (0.00-0.50); Eosinophils % (auto) 0.1 %; Hematocrit (blood only) 39.3 % (42.0-52.0); Hemoglobin 13.3 g/dl (14.0-18.0); Immature Granulocytes # (auto) 0.08 K/uL (0.01-0.20); Immature Granulocytes % (auto) 0.8 %; Lymphocytes # (auto) 0.69 K/uL (1.20-3.40); Lymphocytes % (auto) 6.9 %; Mean Corpuscular Hemoglobin 31.7 pg (25.0-34.0); Mean Corpuscular Hgb Conc 33.8 g/dL (32.0-36.0); Mean Corpuscular Volume 93.8 fL (80.0-100.0); Mean Platelet Volume 12.3 fL (9.4-12.4); Monocytes # (auto) 0.82 K/uL (0.11-0.59); Monocytes % (auto) 8.2 %; Neutrophils # (auto) 8.37 K/uL (1.40-6.50); Neutrophils % (auto) 83.4 %; Platelet Count 124 K/uL (130-400); RDW Coefficient of Variation 14.6 % (11.5-14.5); RDW Standard Deviation 50.2 fL (36.4-46.3); Red Blood Count 4.19 M/uL (4.70-6.10); White Blood Count 10.03 K/ul (4.8-10.8)
[2024-03-20 13:15] LABS: BUN Creatinine Ratio 7.3 (10-20); Calcium 9.3 mg/dl (8.6-10.3); Creatinine Clr Calc Pharmacy 13.8 ml/min; Phosphorus 4.9 mg/dl (2.5-4.9); Troponin I High Sensitivity 51.9 pg/ml (0-20)
--- NOTE | 2024-03-20 15:28 | Electrocardiogram Report ---
Test Reason : Blood Pressure : */* mmHG Vent. Rate : 79 BPM Atrial Rate : 75 BPM P-R Int : * ms QRS Dur : 94 ms QT Int : 444 ms P-R-T Axes : * -36 37 degrees QTcB Int : 509 ms Atrial fibrillation Left axis deviation Septal infarct (cited on or before 17-Mar-2024) Prolonged QT Abnormal ECG When compared with ECG of 17-Mar-2024 16:35, QT has lengthened Confirmed by Rodrigo Graham ([id number]) on 03/20/2024 3:27:53 PM Referred By: REFERRED SELF Confirmed By: Rodrigo Graham
--- NOTE | 2024-03-20 17:14 | Hospitalist Progress Note ---
Date of Service March 20, 2024 Assessment & Plan (1) Stroke-like symptoms: Plan: Presented with right facial droop and garbled speech resolved within 5 minutes Initial CTA and CT scan of the head unremarkable Will get MRI to rule out any stroke Will observe in telemetry unit and get an echocardiogram MRI of the head has been negative for any stroke and will get echocardiogram to evaluate cardiac functions Does not have any more signs and or symptoms of TIA Will discuss with the shoe parts molder for possible administering baby aspirin to prevent stroke No more signs and or symptoms of TIA with that that holds mostly going to send him home later on Saturday Acute confusion with combative behavior Happened to be after dialysis Code yan was called and he received IM Zyprexa 2.5 mg and also required wrist restraint Has been requiring restraint and the confusion is persisting The daughter and the son feel that this time the confusion is worse compared with before Appreciate psychiatrist input and recommendation The medications have been updated as per psychiatrist recommendation Code purple Happened at the middle of dialysis when his blood pressure went down to systolic 70s and the patient has had profuse bile vomiting He remained less/unresponsive and received 500 mL of normal saline bolus Apparent investigations including CBC, BMP, chest x-ray were unremarkable Troponin is minimally high secondary to a stress-induced and will repeat in 6 hours Discussed with the family members Will observe for now and the patient is likely to be a DNR DNI after checking advanced directive papers at home by the daughter Will observe (2) Hypertensive urgency: Plan: Initial blood pressure noted to be very high at systolic more than 200 Received intravenous labetalol and the blood pressure is coming down Denies any chest pain, shortness of breath or palpitation Blood pressure remains stable with current medications Blood pressure seems to be at the lower side at 99/45 Blood pressure is controlled now (3) Atrial fibrillation: Plan: History of atrial fibrillation was on Coumadin before Coumadin has been discontinued secondary to retroperitoneal bleed in 2020 Patient has been started with intravenous heparin and that will be discontinued. Currently the rate is controlled (4) Diabetes mellitus, type II: Plan: Has type 2 diabetes on insulin We will continue with current insulin regimen (5) Hyperlipidemia: Plan: Continue statin (6) ESRD (end stage renal disease) on dialysis: Plan: Missed his last hemodialysis Next dialysis tomorrow Nephrology consult-appreciate input and recommendation Other chronic medical conditions remained stable DVT prophylaxis Subcu heparin CODE STATUS Full Discussed with the daughter in detail for his atrial fibrillation and the reason why he has not been on any anticoagulation Admission and Anticipated Discharge Date Admission Date: March 17, 2024 Subjective 03/18/2024 The patient was seen and examined in telemetry unit following dialysis He has been stable until back from dialysis and following that all of a sudden He became very confused and combative Code yan was called and he received IM Zyprexa and also required restraint to prevent harming himself and others 03/19/2024 The patient was seen and examined in telemetry unit He remains agitated and trying to get out of bed and is still requiring restraint Remains otherwise hemodynamically stable 03/20/2024 Patient was seen and examined in dialysis unit Attended ashli treviñoin the middle of dialysis the patient noted to be hypotensive and vomited bile-stained vomitus and following that he was less responsive and subsequent events were addressed as below He was seen later in the telemetry unit in presence of the family members the son and the daughter Remains less responsive but hemodynamically stable Review of Systems Review of Systems: Unobtainable due to cognitive status Physical Exam Physical Exam: Lying in bed lethargic and almost unresponsive Constitutional: + ill appearing and average body habitus Eyes: Closed ENMT: external ear and nose normal, oropharynx normal Neck: trachea midline, no thyromegaly Respiratory: no respiratory distress Auscultation: + diminished lung sounds Cardiovascular: Rate/Rhythm: regular rate and regular rhythm; not tachycardic Heart Sounds: normal S1 and normal S2; no murmur Extremities: no edema Gastrointestinal (Abdomen): Inspection/Auscultation: normal bowel sounds; abd omen not distended Musculoskeletal: No acute arthritis involving any of the joint Neurologic: Alert but difficult to arouse. Lymphatic: no cervical or axillary lymphadenopathy Results & Data Results & Data Vital Signs (Past 12 Hours) Vital Signs Temp Pulse Pulse Pulse Resp BP BP 03/20/24 15:25 36.1 C L 75 16 03/20/24 14:41 80 03/20/24 12:58 80 18 03/20/24 12:10 36.4 C L 03/20/24 12:00 86 120/58 L 03/20/24 11:30 67 76/58 L 03/20/24 11:16 88 162/77 H 03/20/24 11:00 78 79/42 L 03/20/24 10:30 94 H 135/65 03/20/24 10:00 63 109/89 03/20/24 09:39 67 87/52 L 03/20/24 09:33 36.4 C L 71 03/20/24 08:04 36.0 C L 78 16 148/72 H 03/20/24 08:00 72 BP Pulse Ox O2 Del Method 03/20/24 15:25 116/56 L 100 Room Air 03/20/24 14:41 03/20/24 12:58 134/62 100 Room Air 03/20/24 12:10 110/62 03/20/24 12:00 03/20/24 11:30 03/20/24 11:16 03/20/24 11:00 03/20/24 10:30 03/20/24 10:00 03/20/24 09:39 03/20/24 09:33 03/20/24 08:04 97 Room Air 03/20/24 08:00 Laboratory Results Short CBC 03/20/24 03/20/24 Range/Units 09:31 12:24 WBC 9.14 10.03 (4.8-10.8) K/ul Hgb 13.0 L 13.3 L (14.0-18.0) g/dl Hct 37.9 L 39.3 L (42.0-52.0) % Plt Count 116 L 124 L (130-400) K/uL BMP 03/20/24 03/20/24 09:31 12:24 Sodium 135 L 136 Potassium 4.8 4.0 Chloride 94 L 98 Carbon Dioxide 20 L 22 BUN 58 H 30 H D Creatinine 7.92 H* 4.12 H D Glucose 132 H 133 H Calcium 9.7 9.3 Medications Administered Current Inpatient Medications Amlodipine Besylate (Amlodipine Besylate 5 Mg Tab) 2.5 mg PO HS [facility] Stop: 04/16/24 23:29 Last Admin: 03/19/24 20:19 Dose: 2.5 mg Cyanocobalamin (Cyanocobalamin (B-12) 500 Mcg Tablet) 1,000 mcg PO [facility] [place] Stop: 04/17/24 08:59 Last Admin: 03/20/24 08:41 Dose: 1,000 mcg Doxazosin Mesylate (Doxazosin Mesylate 1 Mg Tab) 1 mg PO HS [facility] Stop: 04/17/24 20:59 Last Admin: 03/19/24 20:18 Dose: 1 mg Ezetimibe (Ezetimibe 10 Mg Tab) 10 mg PO DAILY [facility] Stop: 04/17/24 08:59 Last Admin: 03/20/24 08:41 Dose: 10 mg Famotidine (Famotidine 20 Mg Tab) 20 mg PO DAILY PRN PRN Reason: Heartburn Stop: 04/16/24 18:55 Ferrous Sulfate (Ferrous Sulfate 325 Mg Tab) 325 mg PO QAM [facility] Stop: 04/17/24 08:59 Last Admin: 03/20/24 08:42 Dose: 325 mg Heparin Sodium (Porcine) (Heparin Sod 5,000 Unit/0.5 Ml Vial) 5,000 units SQ Q12 [facility] Stop: 04/16/24 20:59 Last Admin: 03/20/24 08:45 Dose: 5,000 units Insulin Aspart (Insulin Aspart Per Unit Charge) 0 units SC ACHS [facility] Stop: 04/16/24 20:59 Last Admin: 03/20/24 17:09 Dose: Not Given Losartan Potassium (Losartan Potassium 25 Mg Tab) 25 mg PO QAM [facility] Stop: 04/17/24 08:59 Last Admin: 03/20/24 08:42 Dose: 25 mg Melatonin (Melatonin 3 Mg Tab) 3 mg PO HS PRN PRN Reason: Sleep Stop: 04/18/24 13:26 Last Admin: 03/19/24 20:17 Dose: 3 mg Metoprolol Succinate (Metoprolol Succ 25mg Ext Rel Tab) 25 mg PO BID [facility] Stop: 04/16/24 20:59 Last Admin: 03/20/24 08:41 Dose: 25 mg Olanzapine (Olanzapine Zydis 5 Mg Orally Dis. Tab) 5 mg PO BID PRN PRN Reason: Agitation Stop: 04/18/24 20:59 Last Admin: 03/19/24 14:11 Dose: 5 mg Olanzapine (Olanzapine 10 Mg/2.1 Ml Sdv) 5 mg IM Q12H PRN PRN Reason: Agitation Stop: 04/17/24 18:33 Ondansetron HCl (Ondansetron Inj 2 Mg/Ml 2 Ml Vial) 4 mg IV Q6H PRN PRN Reason: Nausea And Vomiting Stop: 04/19/24 10:42 Last Admin: 03/20/24 11:06 Dose: 4 mg Quetiapine Fumarate (Quetiapine Fumarate 25 Mg Tablet) 12.5 mg PO [facility] Stop: 04/18/24 20:59 Last Admin: 03/19/24 20:17 Dose: 12.5 mg Vitamin D (Cholecalciferol 25 Mcg (1000 Units) Tab) [facility] Stop: 04/17/24 08:59 Last Admin: 03/20/24 08:41 Dose: 50 mcg (4) Diabetes mellitus, type II Diabetes mellitus complication status: without complication Diabetes mellitus longterm insulin use: unspecified longterm insulin use status Qualified Code(s): E11.9 - Type 2 diabetes mellitus without complications
[2024-03-20] MEDS: OLANZapine 10 MG/2.1 ML SDV IM PRN (19:08)
[2024-03-21 07:15] LABS: Basophils # (auto) 0.05 K/uL (0.00-0.20); Basophils % (auto) 0.5 %; Eosinophils # (auto) 0.01 K/uL (0.00-0.50); Eosinophils % (auto) 0.1 %; Hematocrit (blood only) 36.4 % (42.0-52.0); Hemoglobin 12.3 g/dl (14.0-18.0); Immature Granulocytes # (auto) 0.09 K/uL (0.01-0.20); Immature Granulocytes % (auto) 0.9 %; Lymphocytes # (auto) 0.97 K/uL (1.20-3.40); Lymphocytes % (auto) 9.2 %; Mean Corpuscular Hemoglobin 32.1 pg (25.0-34.0); Mean Corpuscular Hgb Conc 33.8 g/dL (32.0-36.0); Mean Platelet Volume 12.6 fL (9.4-12.4); Monocytes # (auto) 1.91 K/uL (0.11-0.59); Monocytes % (auto) 18.1 %; Neutrophils # (auto) 7.51 K/uL (1.40-6.50); Neutrophils % (auto) 71.2 %; Platelet Count 119 K/uL (130-400); RDW Coefficient of Variation 14.6 % (11.5-14.5); RDW Standard Deviation 50.8 fL (36.4-46.3); Red Blood Count 3.83 M/uL (4.70-6.10); White Blood Count 10.54 K/ul (4.8-10.8)
[2024-03-21 08:29] LABS: BUN Creatinine Ratio 8.5 (10-20); Calcium 9.4 mg/dl (8.6-10.3); Creatinine Clr Calc Pharmacy 8.3 ml/min; Magnesium 2.4 mg/dl (1.7-2.4); Phosphorus 9.3 mg/dl (2.5-4.9); Potassium 4.7 mmol/L (3.5-5.1)
--- NOTE | 2024-03-21 14:40 | Hospitalist Progress Note ---
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 for possible administering baby aspirin to prevent stroke No more signs and or symptoms of TIA with that that holds mostly going to send him home later on Saturday No neurological symptoms Acute confusion with combative behavior Happened to be after dialysis Radha heredia was called and he received IM Zyprexa 2.5 mg and also required wrist restraint Has been requiring restraint and the confusion is persisting The daughter and the son feel that this time the confusion is worse compared with before Appreciate psychiatrist input and recommendation The medications have been updated as per psychiatrist recommendation He has been much improved and seems to be at his baseline with memory Has been conversing well and listening to instructions and committed to follow dose Code purple Happened at the middle of dialysis when his blood pressure went down to systolic 70s and the patient has had profuse bile vomiting He remained less/unresponsive and received 500 mL of normal saline bolus Apparent investigations including CBC, BMP, chest x-ray were unremarkable Troponin is minimally high secondary to a stress-induced and will repeat in 6 hours Discussed with the family members Will observe for now and the patient is likely to be a DNR DNI after checking advanced directive papers at home by the daughter Will observe- shows significant improvement since this morning Elevated troponin-Demand Ischemia Happened to be following the "portable with highest level went up to 531 No EKG changes and no cardiac symptoms Echo of the heart did not show any wall motion abnormality Doubt any ACS and the elevation of troponin is secondary to demand ischemia (2) Hypertensive urgency: Plan: Initial blood pressure noted to be very high at systolic more than 200 Received intravenous labetalol and the blood pressure is coming down Denies any chest pain, shortness of breath or palpitation Blood pressure remains stable with current medications Blood pressure seems to be at the lower side at 99/45 Blood pressure is controlled now (3) Atrial fibrillation: Plan: History of atrial fibrillation was on Coumadin before Coumadin has been discontinued secondary to retroperitoneal bleed in 2020 Patient has been started with intravenous heparin and that will be discontinued. Currently the rate is controlled (4) Diabetes mellitus, type II: Plan: Has type 2 diabetes on insulin We will continue with current insulin regimen (5) Hyperlipidemia: Plan: Continue statin (6) ESRD (end stage renal disease) on dialysis: Plan: Missed his last hemodialysis Next dialysis tomorrow Nephrology consult-appreciate input and recommendation Other chronic medical conditions remained stable DVT prophylaxis Subcu heparin CODE STATUS Full Discussed with the daughter in detail for his atrial fibrillation and the reason why he has not been on any anticoagulation Admission and Anticipated Discharge Date Admission Date: March 17, 2024 Subjective 03/18/2024 The patient was seen and examined in telemetry unit following dialysis He has been stable until back from dialysis and following that all of a sudden He became very confused and combative Radha heredia was called and he received IM Zyprexa and also required restraint to prevent harming himself and others 03/19/2024 The patient was seen and examined in telemetry unit He remains agitated and trying to get out of bed and is still requiring restraint Remains otherwise hemodynamically stable 03/20/2024 Patient was seen and examined in dialysis unit Attended radha treviñoin the middle of dialysis the patient noted to be hypotensive and vomited bile-stained vomitus and following that he was less responsive and subsequent events were addressed as below He was seen later in the telemetry unit in presence of the family members the son and the daughter Remains less responsive but hemodynamically stable 03/21/2024 The patient was seen and examined in telemetry unit He has been feeling much better and seems to be a new person Minimal confusion and has been communicating well He was strongly advised to eat and drink more and take medications as advised Review of Systems Review of Systems: All systems reviewed and are unremarkable except as noted below Physical Exam Physical Exam: Lying in bed lethargic and almost unresponsive Constitutional: well developed, well nourished, + ill appearing and average body habitus Eyes: PERRL, conjunctivae normal, anicteric sclerae ENMT: external ear and nose normal, oropharynx normal Neck: trachea midline, no thyromegaly Respiratory: normal respiratory effort, lungs clear to auscultation no respiratory distress Auscultation: + diminished lung sounds Cardiovascular: Rate/Rhythm: regular rate and regular rhythm; not tachycardic Heart Sounds: normal S1 and normal S2; no murmur Extremities: no edema Gastrointestinal (Abdomen): Inspection/Auscultation: normal bowel sounds; abdomen not distended Percussion/Palpation: abdomen soft; abdomen nontender Neurologic: normal touch/pain/proprioception and moves all extremities; no focal motor deficits Lymphatic: no cervical or axillary lymphadenopathy Results & Data Results & Data Vital Signs (Past 12 Hours) Vital Signs Temp Pulse Pulse Resp BP Pulse Ox O2 Del Method 03/21/24 11:50 36.5 C 67 20 95/57 L 96 Room Air 03/21/24 08:08 36.2 C L 72 20 120/72 93 Room Air 03/21/24 03:11 36.4 C L 84 22 106/65 98 Room Air Laboratory Results Short CBC 03/21/24 Range/Units 06:36 WBC 10.54 (4.8-10.8) K/ul Hgb 12.3 L (14.0-18.0) g/dl Hct 36.4 L (42.0-52.0) % Plt Count 119 L (130-400) K/uL BMP 03/21/24 06:36 Sodium 137 Potassium 4.7 Chloride 98 Carbon Dioxide 23 BUN 58 H D Creatinine 6.85 H* D Glucose 124 H Calcium 9.4 Medications Administered Current Inpatient Medications Amlodipine Besylate (Amlodipine Besylate 5 Mg Tab) 2.5 mg PO HS [facility] Stop: 04/16/24 23:29 Last Admin: 03/20/24 19:04 Dose: 2.5 mg Cyanocobalamin (Cyanocobalamin (B-12) 500 Mcg Tablet) 1,000 mcg PO QAM [facility] Stop: 04/17/24 08:59 Last Admin: 03/21/24 09:17 Dose: 1,000 mcg Doxazosin Mesylate (Doxazosin Mesylate 1 Mg Tab) 1 mg PO HS [facility] Stop: 04/17/24 20:59 Last Admin: 03/20/24 19:05 Dose: 1 mg Ezetimibe (Ezetimibe 10 Mg Tab) 10 mg PO DAILY [facility] Stop: 04/17/24 08:59 Last Admin: 03/21/24 09:18 Dose: 10 mg Famotidine (Famotidine 20 Mg Tab) 20 mg PO DAILY PRN PRN Reason: Heartburn Stop: 04/16/24 18:55 Ferrous Sulfate (Ferrous Sulfate 325 Mg Tab) 325 mg PO QAM [facility] Stop: 04/17/24 08:59 Last Admin: 03/21/24 09:18 Dose: 325 mg Heparin Sodium (Porcine) (Heparin Sod 5,000 Unit/0.5 Ml Vial) 5,000 units SQ Q12 [facility] Stop: 04/16/24 20:59 Last Admin: 03/21/24 09:19 Dose: 5,000 units Insulin Aspart (Insulin Aspart Per Unit Charge) 0 units SC ACHS [facility] Stop: 04/16/24 20:59 Last Admin: 03/21/24 12:48 Dose: 3 units Losartan Potassium (Losartan Potassium 25 Mg Tab) 25 mg PO QAM [facility] Stop: 04/17/24 08:59 Last Admin: 03/21/24 09:17 Dose: 25 mg Melatonin (Melatonin 3 Mg Tab) 3 mg PO HS PRN PRN Reason: Sleep Stop: 04/18/24 13:26 Last Admin: 03/20/24 19:08 Dose: 3 mg Metoprolol Succinate (Metoprolol Succ 25mg Ext Rel Tab) 25 mg PO BID [facility] Stop: 04/16/24 20:59 Last Admin: 03/21/24 09:18 Dose: 25 mg Olanzapine (Olanzapine Zydis 5 Mg Orally Dis. Tab) 5 mg PO BID PRN PRN Reason: Agitation Stop: 04/18/24 20:59 Last Admin: 03/19/24 14:11 Dose: 5 mg Olanzapine (Olanzapine 10 Mg/2.1 Ml Sdv) 5 mg IM Q12H PRN PRN Reason: Agitation Stop: 04/17/24 18:33 Last Admin: 03/20/24 19:08 Dose: 5 mg Ondansetron HCl (Ondansetron Inj 2 Mg/Ml 2 Ml Vial) 4 mg IV Q6H PRN PRN Reason: Nausea And Vomiting Stop: 04/19/24 10:42 Last Admin: 03/20/24 11:06 Dose: 4 mg Quetiapine Fumarate (Quetiapine Fumarate 25 Mg Tablet) 12.5 mg PO HS [facility] Stop: 04/18/24 20:59 Last Admin: 03/20/24 19:05 Dose: 12.5 mg Vitamin D (Cholecalciferol 25 Mcg (1000 Units) Tab) [facility] Stop: 04/17/24 08:59 Last Admin: 03/21/24 09:17 Dose: 50 mcg (4) Diabetes mellitus, type II Diabetes mellitus complication status: without complication 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
--- NOTE | 2024-03-21 16:15 | Communication Note ---
Date of Service: March 21, 2024 Attended code heredia: Patient got very agitated and took out his IV lines and was listening to the attendants. He was requiring multiple personnel to hold him stable in bed. Zyprexa 5 mg IM was administered as per prior instructions and mittens were provided to prevent any pulling out of medical equipment. Dr Lottie Briggs
[2024-03-21] MEDS: OLANZapine 10 MG/2.1 ML SDV IM ONE (16:20)
[2024-03-21] MEDS: LORazepam 2 MG/1 ML VIAL ONE (17:50)
--- NOTE | 2024-03-22 14:32 | Hospitalist Progress Note ---
Date of Service March 22, 2024 Assessment & Plan (1) Stroke-like symptoms: Plan: Presented with right facial droop and garbled speech resolved within 5 minutes Initial CTA and CT scan of the head unremarkable Will get MRI to rule out any stroke Will observe in telemetry unit and get an echocardiogram MRI of the head has been negative for any stroke and will get echocardiogram to evaluate cardiac functions Does not have any more signs and or symptoms of TIA Will discuss with the [facility] for possible administering baby aspirin to prevent stroke No more signs and or symptoms of TIA with that that holds mostly going to send him home later on Saturday No neurological symptoms Acute confusion with combative behavior Happened to be after dialysis Radha heredia was called and he received IM Zyprexa 2.5 mg and also required wrist restraint Has been requiring restraint and the confusion is persisting The daughter and the son feel that this time the confusion is worse compared with before Appreciate psychiatrist input and recommendation The medications have been updated as per psychiatrist recommendation He has been much improved and seems to be at his baseline with memory Has been conversing well and listening to instructions and committed to follow dose Remains stable Code purple Happened at the middle of dialysis when his blood pressure went down to systolic 70s and the patient has had profuse bile vomiting He remained less/unresponsive and received 500 mL of normal saline bolus Apparent investigations including CBC, BMP, chest x-ray were unremarkable Troponin is minimally high secondary to a stress-induced and will repeat in 6 hours Discussed with the family members Will observe for now and the patient is likely to be a DNR DNI after checking advanced directive papers at home by the daughter Will observe- shows significant improvement since this morning Has had Code purple last evening x 2 and were managed appropriately with IM Zyprexa and second time with intravenous Ativan Has been feeling much better and can remember the events of last evening Will observe Elevated troponin-Demand Ischemia Happened to be following the "portable with highest level went up to 531 No EKG changes and no cardiac symptoms Echo of the heart did not show any wall motion abnormality Doubt any ACS and the elevation of troponin is secondary to demand ischemia (2) Hypertensive urgency: Plan: Initial blood pressure noted to be very high at systolic more than 200 Received intravenous labetalol and the blood pressure is coming down Denies any chest pain, shortness of breath or palpitation Blood pressure remains stable with current medications Blood pressure seems to be at the lower side at 99/45 Blood pressure is controlled now (3) Atrial fibrillation: Plan: History of atrial fibrillation was on Coumadin before Coumadin has been discontinued secondary to retroperitoneal bleed in 2020 Patient has been started with intravenous heparin and that will be discontinued. Currently the rate is controlled (4) Diabetes mellitus, type II: Plan: Has type 2 diabetes on insulin We will continue with current insulin regimen (5) Hyperlipidemia: Plan: Continue statin (6) ESRD (end stage renal disease) on dialysis: Plan: Missed his last hemodialysis Next dialysis tomorrow Nephrology consult-appreciate input and recommendation Other chronic medical conditions remained stable DVT prophylaxis Subcu heparin CODE STATUS Full Discussed with the daughter in detail for his atrial fibrillation and the reason why he has not been on any anticoagulation Discussed with the daughter yesterday and will discuss further Admission and Anticipated Discharge Date Admission Date: March 17, 2024 Subjective 03/18/2024 The patient was seen and examined in telemetry unit following dialysis He has been stable until back from dialysis and following that all of a sudden He became very confused and combative Radha heredia was called and he received IM Zyprexa and also required restraint to prevent harming himself and others 03/19/2024 The patient was seen and examined in telemetry unit He remains agitated and trying to get out of bed and is still requiring restraint Remains otherwise hemodynamically stable 03/20/2024 Patient was seen and examined in dialysis unit Attended radha treviñoin the middle of dialysis the patient noted to be hypotensive and vomited bile-stained vomitus and following that he was less responsive and subsequent events were addressed as below He was seen later in the telemetry unit in presence of the family members the son and the daughter Remains less responsive but hemodynamically stable 03/21/2024 The patient was seen and examined in telemetry unit He has been feeling much better and seems to be a new person Minimal confusion and has been communicating well He was strongly advised to eat and drink more and take medications as advised 03/22/2024 The patient was seen and examined in telemetry unit He has had Code Purple x 2 yesterday evening and required IM Zyprexa x 1 and also IV Ativan at the time Has been feeling much better this morning and remembers the situation that happened yesterday Has been eating and drinking reasonably well denies any significant symptoms Review of Systems Review of Systems: All systems reviewed and are unremarkable except as noted below Physical Exam Physical Exam: Lying in bed lethargic and almost unresponsive Constitutional: well developed, well nourished, + ill appearing and average body habitus Eyes: PERRL, conjunctivae normal, anicteric sclerae ENMT: external ear and nose normal, oropharynx normal Neck: trachea midline, no thyromegaly Respiratory: normal respiratory effort, lungs clear to auscultation no respiratory distress Auscultation: + diminished lung sounds Cardiovascular: Rate/Rhythm: regular rate and regular rhythm; not tachycardic Heart Sounds: normal S1 and normal S2; no murmur Extremities: no edema Gastrointestinal (Abdomen): Inspection/Auscultation: normal bowel sounds; abdomen not distended Percussion/Palpation: abdomen soft; abdomen nontender Neurologic: normal touch/pain/proprioception and moves all extremities; no focal motor deficits Lymphatic: no cervical or axillary lymphadenopathy Results & Data Results & Data Vital Signs (Past 12 Hours) Vital Signs Temp Pulse Pulse Resp BP Pulse Ox O2 Del Method 03/22/24 11:23 36.3 C L 74 20 166/68 H 100 Room Air 03/22/24 08:19 74 03/22/24 03:00 72 19 161/72 H 93 Room Air (4) Diabetes mellitus, type II Diabetes mellitus complication status: without complication 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
--- NOTE | 2024-03-22 15:04 | Psychiatric Progress Note ---
Date of Service March 22, 2024 Impression / Recommendations Impression Diagnostically consistent with encephalopathy/delirium. Unfortunately there are no known medications to cure or shorten the duration of delirium; rather antipsychotics are used at times to help with sleep/appetite/psychomotor agitation and hallucinations if these symptoms are causing significant distress and/or interfering with acute safety. Duration of delirium varies broadly with persistent delirium (defined as lasting for weeks or months) occurring frequently with [id number] of patients exhibiting some symptoms of delirium at 6 months after symptom onset, see:Anastasia Godoy., Kayy Posey., Fortunato Jordan.et al.Delirium.Alicja Rev Dis Primers6, 90 (2020). [email or web address]. MRI brain on 03/17/2024 showed small vessel disease and white matter changes per radiologist report suggestive of possible vascular dementia component but apparently he has been able to live independently and typically only has brief periods of confusion that resolve within a few hours of his dialysis at baseline. A: Ongoing periods of impulsive aggression and confusion. Limited benefit from olanzapine IM when required but also with ongoing cardiac concerns which makes other IM options like Thorazine, haldol and ziprasidone ill-advised. Would continue use of olanzapine for acute behavioral emergency. Ativan seemed to be effective and is the best choice from cardiac safety standpoint, especially if QTc is >500ms but with caution for potential worsening and prolongation of delirium. Could also consider use of low dose pain medication if possible that pain may be contributing to impulsive outbursts and aggression. Would increase scheduled Seroquel po as this may help lessen need for IM/IV medications and QTc improved yesterday to <500ms. Overall, I spent a total of 45 minutes with this case including review of chart records, review of labwork, review of EKG QTc, direct evaluation of the patient at bedside, discussion of the patient with the Nurse and with the hospitalist provider, discussion with the psychiatric liason during clinical rounds, and documentation in the electronic health record. (1) Delirium: (2) ESRD (end stage renal disease) on dialysis: (3) A-fib: Plan 03/22/2024: -Increase Seroquel to 12.5mg qafternoon and 25mg HS. If 25mg HS is ineffective and no cardiac concerns would then increase further to 50mg HS. -For behavioral emergency: * could try olanzapine 5mg ODT BID prn for agitation OR risperidone 0.5mg BID ODT prn for agitation if olanzapine remains ineffective * for acute aggression: * If QTc <500ms on EKG: olanzapine 5 mg IM x 1 (DO NOT exceed 10mg per 24 hours, check EKG if IM dose required, NEVER co-administer with IM or IV benzodiazepines). * If QTc >500ms on EKG: ativan 0.5mg - 1mg IV or IM 03/19/2024: -1-on-1 prn given level of agitation -Consider starting scheduled seroquel 12.5 mg qhs and can titrate up to 25mg BID for behavioral management as needed; would check EKG QTc routinely as tolerated -Consider melatonin 3mg qhs -Continue medical workup to rule out and treat any underlying causes contributing to potential delirium, avoid or limit use of deliriogenic medications (benzodiazepines, opioids, anticholinergics) -Continue with delirium prevention measures: raising blinds during the day, closing at night, frequent re-orientation, contact with family/friends, explaining procedures/nursing care measures prior to physical contact, correct any hearing and visual impairments -For behavioral emergency: * could try olanzapine 5mg ODT BID prn for agitation * for acute aggression: olanzapine 5 mg IM x 1 (DO NOT exceed 10mg per 24 hours, check EKG if IM dose required, NEVER co-administer with IM or IV benzodiazepines). Interval History Identifying Information 78 yo man with a history of end-stage renal disease on hemodialysis, atrial fibrillation not on any anticoagulation due to retroperitoneal bleed while on Coumadin on 01/2021, diabetes type 2, hypertension, hyperlipidemia admitted medically for stroke-like symptoms. Psychiatry was consulted for agitation. Chief Complaint sleeping Subjective Subjective Patient was seen & assessed and interval progress reviewed. Taking po medications Multiple behavioral events, aggressive and impulsive. Yesterday required IM olanzapine 5mg at ~4pm and then due to concerns for increased QTc got IV ativan 1mg @ 6pm. Slept with less agitation after IV ativan. Today he's sleeping. Physical Exam Vital Signs (Past 24 Hours) Last Vital Signs Temp 36.3 C L 03/22/24 11:23 Pulse 74 03/22/24 11:23 Resp 20 03/22/24 11:23 BP 166/68 H 03/22/24 11:23 Pulse Ox 100 03/22/24 11:23 O2 Del Method Room Air 03/22/24 11:23 Results & Data ([facility]) Laboratory Results Laboratory Results - last 24 hr 03/21/24 03/21/24 03/22/24 16:50 20:26 08:13 POC Glucose 177 H 120 H 124 H 03/22/24 12:27 POC Glucose 162 H Current Inpatient Medications Current Inpatient Medications: Current Inpatient Medications Amlodipine Besylate (Amlodipine Besylate 5 Mg Tab) 2.5 mg PO HS [facility] Stop: 04/16/24 23:29 Last Admin: 03/21/24 21:12 Dose: 2.5 mg Cyanocobalamin (Cyanocobalamin (B-12) 500 Mcg Tablet) 1,000 mcg PO QAM [facility] Stop: 04/17/24 08:59 Last Admin: 03/22/24 09:38 Dose: 1,000 mcg Doxazosin Mesylate (Doxazosin Mesylate 1 Mg Tab) 1 mg PO HS [facility] Stop: 04/17/24 20:59 Last Admin: 03/21/24 21:12 Dose: 1 mg Ezetimibe (Ezetimibe 10 Mg Tab) 10 mg PO DAILY [facility] Stop: 04/17/24 08:59 Last Admin: 03/22/24 09:37 Dose: 10 mg Famotidine (Famotidine 20 Mg Tab) 20 mg PO DAILY PRN PRN Reason: Heartburn Stop: 04/16/24 18:55 Ferrous Sulfate (Ferrous Sulfate 325 Mg Tab) 325 mg PO QAM [facility] Stop: 04/17/24 08:59 Last Admin: 03/22/24 09:38 Dose: 325 mg Heparin Sodium (Porcine) (Heparin Sod 5,000 Unit/0.5 Ml Vial) 5,000 units SQ Q12 [facility] Stop: 04/16/24 20:59 Last Admin: 03/22/24 09:40 Dose: 5,000 units Insulin Aspart (Insulin Aspart Per Unit Charge) 0 units SC ACHS [facility] Stop: 04/16/24 20:59 Last Admin: 03/22/24 13:09 Dose: 4 units Losartan Potassium (Losartan Potassium 25 Mg Tab) 25 mg PO QAM [facility] Stop: 04/17/24 08:59 Last Admin: 03/22/24 09:38 Dose: 25 mg Melatonin (Melatonin 3 Mg Tab) 3 mg PO HS PRN PRN Reason: Sleep Stop: 04/18/24 13:26 Last Admin: 03/21/24 21:11 Dose: 3 mg Metoprolol Succinate (Metoprolol Succ 25mg Ext Rel Tab) 25 mg PO BID [facility] Stop: 04/16/24 20:59 Last Admin: 03/22/24 09:37 Dose: 25 mg Olanzapine (Olanzapine Zydis 5 Mg Orally Dis. Tab) 5 mg PO BID PRN PRN Reason: Agitation Stop: 04/18/24 20:59 Last Admin: 03/19/24 14:11 Dose: 5 mg Olanzapine (Olanzapine 10 Mg/2.1 Ml Sdv) 5 mg IM Q12H PRN PRN Reason: Agitation Stop: 04/17/24 18:33 Last Admin: 03/21/24 16:04 Dose: 5 mg Ondansetron HCl (Ondansetron Inj 2 Mg/Ml 2 Ml Vial) 4 mg IV Q6H PRN PRN Reason: Nausea And Vomiting Stop: 04/19/24 10:42 Last Admin: 03/20/24 11:06 Dose: 4 mg Quetiapine Fumarate (Quetiapine Fumarate 25 Mg Tablet) 12.5 mg PO HS [facility] Stop: 04/18/24 20:59 Last Admin: 03/21/24 21:15 Dose: 12.5 mg Vitamin D (Cholecalciferol 25 Mcg (1000 Units) Tab) 50 mcg PO QAM [facility] Stop: 04/17/24 08:59 Last Admin: 03/22/24 09:38 Dose: 50 mcg (3) A-fib Atrial fibrillation type: unspecified chronic Qualified Code(s): I48.20 - Chronic atrial fibrillation, unspecified
[2024-03-22] MEDS: QUEtiapine FUMARATE 25 MG TABLET PO SCH (20:36)
[2024-03-23 07:32] LABS: Basophils # (auto) 0.04 K/uL (0.00-0.20); Basophils % (auto) 0.4 %; Eosinophils # (auto) 0.06 K/uL (0.00-0.50); Eosinophils % (auto) 0.6 %; Hematocrit (blood only) 35.7 % (42.0-52.0); Hemoglobin 12.4 g/dl (14.0-18.0); Immature Granulocytes # (auto) 0.09 K/uL (0.01-0.20); Immature Granulocytes % (auto) 0.9 %; Lymphocytes # (auto) 1.06 K/uL (1.20-3.40); Lymphocytes % (auto) 10.5 %; Mean Corpuscular Hemoglobin 32.5 pg (25.0-34.0); Mean Corpuscular Hgb Conc 34.7 g/dL (32.0-36.0); Mean Corpuscular Volume 93.7 fL (80.0-100.0); Mean Platelet Volume 12.3 fL (9.4-12.4); Monocytes # (auto) 1.44 K/uL (0.11-0.59); Monocytes % (auto) 14.3 %; Neutrophils % (auto) 73.3 %; Platelet Count 110 K/uL (130-400); RDW Coefficient of Variation 14.6 % (11.5-14.5); RDW Standard Deviation 50.3 fL (36.4-46.3); Red Blood Count 3.81 M/uL (4.70-6.10); White Blood Count 10.09 K/ul (4.8-10.8)
[2024-03-23 07:42] LABS: BUN Creatinine Ratio 10.5 (10-20); Calcium 9.1 mg/dl (8.6-10.3); Creatinine Clr Calc Pharmacy 5.2 ml/min; Magnesium 2.3 mg/dl (1.7-2.4); Potassium 4.7 mmol/L (3.5-5.1)
--- NOTE | 2024-03-23 10:59 | Dialysis Progress Note ---
Date of Service March 23, 2024 Assessment & Plan Admission and Anticipated Discharge Date Admission Date: March 17, 2024 Subjective Assessment & Plan (1) Hypertensive urgency: Plan: uncontrolled HTN w/ encephalopathy and facial droop ; goal is sbp in 160-180s; can lower BP some since he won't be getting out of bed; significant BP lability as below he is anuric so no point to diuretics BP is consistently higher in R arm and should ideally as able be taken there suggest prn hydralazine or labetalol overnight. Last 2 days Multiple BP are too low. Stop Amlodipine. Would rather see high than low BP. (2) ESRD (end stage renal disease) on dialysis: Plan: HD today and will do as Rxed. Just started so will see how he does. tolerated 1.5 L UF last Rx (3) Autonomic dysfunction with type 2 diabetes mellitus: Plan: labile BP ranging from 95-230 systolic, new on dialysis care w/ BP med adjustments >> challenge is he has to be able to ambulate and BP falls w/ standing Subjective seen in dialysis. Vital signs fine. CVC fine. NO Issues with Dialysis as of now Review of Systems Review of Systems: Unobtainable due to reduced consciousness Physical Exam Constitutional: well developed, + thin, + altered mental status, + behavioral limitations (in soft BL wrist restraints), + frail appearing and + lethargic ( snoring mostly; then cries out; difficult to arouse) Eyes: EOM intact bilaterally ENMT: Mouth: + dry oral mucous membranes Respiratory: normal respiratory effort Auscultation: + diminished lung sounds Cardiovascular: Rate/Rhythm: + irregularly irregular Extremities: no edema Gastrointestinal (Abdomen): Inspection/Auscultation: normal bowel sounds Percussion/Palpation: abdomen soft; abdomen nontender Musculoskeletal: Extremities: strength 5/5 throughout Skin: no rashes, warm and dry Neurologic: snoring, difficult to arouse; opens eyes briefly then straight back asleep Results & Data Vital Signs (Past 12 Hours) Vital Signs Temp Pulse Pulse Pulse Resp BP BP 03/23/24 10:30 77 113/56 L 03/23/24 10:00 55 L 92/62 L 03/23/24 09:30 79 152/79 H 03/23/24 09:12 36.5 C 76 03/23/24 08:07 36.3 C L 73 16 114/65 03/22/24 23:17 36.8 C 74 21 BP Pulse Ox O2 Del Method 03/23/24 10:30 03/23/24 10:00 03/23/24 09:30 03/23/24 09:12 03/23/24 08:07 97 Room Air 03/22/24 23:17 152/67 H 98 Room Air
--- NOTE | 2024-03-23 15:01 | Hospitalist Progress Note ---
Date of Service March 23, 2024 Assessment & Plan (1) Stroke-like symptoms: Plan: Presented with right facial droop and garbled speech resolved within 5 minutes Initial CTA and CT scan of the head unremarkable Will get MRI to rule out any stroke Will observe in telemetry unit and get an echocardiogram MRI of the head has been negative for any stroke and will get echocardiogram to evaluate cardiac functions Does not have any more signs and or symptoms of TIA Will discuss with the public health engineer for possible administering baby aspirin to prevent stroke No more signs and or symptoms of TIA with that that holds mostly going to send him home later on Saturday No neurological symptoms Acute confusion with combative behavior Happened to be after dialysis Radha heredia was called and he received IM Zyprexa 2.5 mg and also required wrist restraint Has been requiring restraint and the confusion is persisting The daughter and the son feel that this time the confusion is worse compared with before Appreciate psychiatrist input and recommendation The medications have been updated as per psychiatrist recommendation He has been much improved and seems to be at his baseline with memory Has been conversing well and listening to instructions and committed to follow dose Much better today even following dialysis As needed reevaluation by the psychiatrist Will get PT and OT evaluation and possible discharge following the recommendation Code purple Happened at the middle of dialysis when his blood pressure went down to systolic 70s and the patient has had profuse bile vomiting He remained less/unresponsive and received 500 mL of normal saline bolus Apparent investigations including CBC, BMP, chest x-ray were unremarkable Troponin is minimally high secondary to a stress-induced and will repeat in 6 hours Discussed with the family members Will observe for now and the patient is likely to be a DNR DNI after checking advanced directive papers at home by the daughter Will observe- shows significant improvement since this morning Has had Code purple last evening x 2 and were managed appropriately with IM Zyprexa and second time with intravenous Ativan Has been feeling much better and can remember the events of last evening Elevated troponin-Demand Ischemia Happened to be following the "portable with highest level went up to 531 No EKG changes and no cardiac symptoms Echo of the heart did not show any wall motion abnormality Doubt any ACS and the elevation of troponin is secondary to demand ischemia (2) Hypertensive urgency: Plan: Initial blood pressure noted to be very high at systolic more than 200 Received intravenous labetalol and the blood pressure is coming down Denies any chest pain, shortness of breath or palpitation Blood pressure remains stable with current medications Blood pressure seems to be at the lower side at 99/45 Blood pressure is controlled now (3) Atrial fibrillation: Plan: History of atrial fibrillation was on Coumadin before Coumadin has been discontinued secondary to retroperitoneal bleed in 2020 Patient has been started with intravenous heparin and that will be discontinued. Currently the rate is controlled (4) Diabetes mellitus, type II: Plan: Has type 2 diabetes on insulin We will continue with current insulin regimen (5) Hyperlipidemia: Plan: Continue statin (6) ESRD (end stage renal disease) on dialysis: Plan: Missed his last hemodialysis Next dialysis tomorrow Nephrology consult-appreciate input and recommendation Continue hemodialysis as per public health engineer Other chronic medical conditions remained stable DVT prophylaxis Subcu heparin CODE STATUS Full Discussed with the daughter in detail for his atrial fibrillation and the reason why he has not been on any anticoagulation Discussed with the daughter yesterday and will discuss further Admission and Anticipated Discharge Date Admission Date: March 17, 2024 Subjective 03/18/2024 The patient was seen and examined in telemetry unit following dialysis He has been stable until back from dialysis and following that all of a sudden He became very confused and combative Radha heredia was called and he received IM Zyprexa and also required restraint to prevent harming himself and others 03/19/2024 The patient was seen and examined in telemetry unit He remains agitated and trying to get out of bed and is still requiring restraint Remains otherwise hemodynamically stable 03/20/2024 Patient was seen and examined in dialysis unit Attended radha treviñoin the middle of dialysis the patient noted to be hypotensive and vomited bile-stained vomitus and following that he was less responsive and subsequent events were addressed as below He was seen later in the telemetry unit in presence of the family members the son and the daughter Remains less responsive but hemodynamically stable 03/21/2024 The patient was seen and examined in telemetry unit He has been feeling much better and seems to be a new person Minimal confusion and has been communicating well He was strongly advised to eat and drink more and take medications as advised 03/22/2024 The patient was seen and examined in telemetry unit He has had Code Purple x 2 yesterday evening and required IM Zyprexa x 1 and also IV Ativan at the time Has been feeling much better this morning and remembers the situation that happened yesterday Has been eating and drinking reasonably well denies any significant symptoms 03/23/2024 Patient was seen and examined in telemetry unit He has been managed better today even after dialysis Sitting on a chair without any acute distress and has been communicating normal ly Review of Systems Review of Systems: All systems reviewed and are unremarkable except as noted below Physical Exam Physical Exam: Sitting on a chair without any acute distress Constitutional: well developed, well nourished, + ill appearing and average body habitus Eyes: PERRL, conjunctivae normal, anicteric sclerae ENMT: external ear and nose normal, oropharynx normal Neck: trachea midline, no thyromegaly Respiratory: normal respiratory effort, lungs clear to auscultation no respiratory distress Auscultation: + diminished lung sounds Cardiovascular: Rate/Rhythm: regular rate and regular rhythm; not tachycardic Heart Sounds: normal S1 and normal S2; no murmur Extremities: no edema Gastrointestinal (Abdomen): Inspection/Auscultation: normal bowel sounds; abdomen not distended Percussion/Palpation: abdomen soft; abdomen nontender Musculoskeletal: No acute arthritis involving any of the joint Neurologic: normal touch/pain/proprioception and moves all extremities; no focal motor deficits Lymphatic: no cervical or axillary lymphadenopathy Results & Data Results & Data Vital Signs (Past 12 Hours) Vital Signs Temp Pulse Pulse Pulse Resp BP BP 03/23/24 12:43 36.5 C 78 16 159/75 H 03/23/24 12:25 36.4 C L 75 03/23/24 12:00 66 98/58 L 03/23/24 11:30 79 114/57 L 03/23/24 11:00 79 108/61 03/23/24 10:30 77 113/56 L 03/23/24 10:00 55 L 92/62 L 03/23/24 09:30 79 152/79 H 03/23/24 09:12 36.5 C 76 03/23/24 08:07 36.3 C L 73 16 114/65 03/23/24 08:00 78 BP Pulse Ox O2 Del Method 03/23/24 12:43 96 Room Air 03/23/24 12:25 150/63 H 03/23/24 12:00 03/23/24 11:30 03/23/24 11:00 03/23/24 10:30 03/23/24 10:00 03/23/24 09:30 03/23/24 09:12 03/23/24 08:07 97 Room Air 03/23/24 08:00 Laboratory Results Short CBC 03/23/24 Range/Units 06:47 WBC 10.09 (4.8-10.8) K/ul Hgb 12.4 L (14.0-18.0) g/dl Hct 35.7 L (42.0-52.0) % Plt Count 110 L (130-400) K/uL BMP 03/23/24 06:47 Sodium 134 L Potassium 4.7 Chloride 96 L Carbon Dioxide 18 L BUN 115 H Creatinine 10.95 H* Glucose 134 H Calcium 9.1 Medications Administered Current Inpatient Medications Cyanocobalamin (Cyanocobalamin (B-12) 500 Mcg Tablet) 1,000 mcg PO QAM [place] Stop: 04/17/24 08:59 Last Admin: 03/23/24 08:52 Dose: 1,000 mcg Doxazosin Mesylate (Doxazosin Mesylate 1 Mg Tab) 1 mg PO HS [place] Stop: 04/17/24 20:59 Last Admin: 03/22/24 20:36 Dose: 1 mg Ezetimibe (Ezetimibe 10 Mg Tab) 10 mg PO DAILY [place] Stop: 04/17/24 08:59 Last Admin: 03/23/24 08:53 Dose: 10 mg Famotidine (Famotidine 20 Mg Tab) 20 mg PO DAILY PRN PRN Reason: Heartburn Stop: 04/16/24 18:55 Ferrous Sulfate (Ferrous Sulfate 325 Mg Tab) 325 mg PO QAM [place] Stop: 04/17/24 08:59 Last Admin: 03/23/24 08:53 Dose: 325 mg Heparin Sodium (Porcine) (Heparin Sod 5,000 Unit/0.5 Ml Vial) 5,000 units SQ Q12 [place] Stop: 04/16/24 20:59 Last Admin: 03/23/24 08:45 Dose: Not Given Insulin Aspart (Insulin Aspart Per Unit Charge) 0 units SC ACHS [place] Stop: 04/16/24 20:59 Last Admin: 03/23/24 13:12 Dose: Not Given Losartan Potassium (Losartan Potassium 25 Mg Tab) 25 mg PO QAM [place] Stop: 04/17/24 08:59 Last Admin: 03/23/24 08:53 Dose: 25 mg Melatonin (Melatonin 3 Mg Tab) 3 mg PO HS PRN PRN Reason: Sleep Stop: 04/18/24 13:26 Last Admin: 03/21/24 21:11 Dose: 3 mg Metoprolol Succinate (Metoprolol Succ 25mg Ext Rel Tab) 25 mg PO BID [place] Stop: 04/16/24 20:59 Last Admin: 03/23/24 08:47 Dose: Not Given Olanzapine (Olanzapine Zydis 5 Mg Orally Dis. Tab) 5 mg PO BID PRN PRN Reason: Agitation Stop: 04/18/24 20:59 Last Admin: 03/19/24 14:11 Dose: 5 mg Olanzapine (Olanzapine 10 Mg/2.1 Ml Sdv) 5 mg IM Q12H PRN PRN Reason: Agitation Stop: 04/17/24 18:33 Last Admin: 03/21/24 16:04 Dose: 5 mg Ondansetron HCl (Ondansetron Inj 2 Mg/Ml 2 Ml Vial) 4 mg IV Q6H PRN PRN Reason: Nausea And Vomiting Stop: 04/19/24 10:42 Last Admin: 03/20/24 11:06 Dose: 4 mg Quetiapine Fumarate (Quetiapine Fumarate 25 Mg Tablet) 25 mg PO HS [place] Stop: 04/21/24 20:59 Last Admin: 03/22/24 20:36 Dose: 25 mg Vitamin D (Cholecalciferol 25 Mcg (1000 Units) Tab) 50 mcg PO QAM [facility] Stop: 04/17/24 08:59 Last Admin: 03/23/24 08:52 Dose: 50 mcg (4) Diabetes mellitus, type II Diabetes mellitus complication status: without complication Diabetes mellitus top icer insulin use: unspecified longterm insulin use status Qualified Code(s): E11.9 - Type 2 diabetes mellitus without complications
--- NOTE | 2024-03-23 16:25 | Electrocardiogram Report ---
Test Reason : Blood Pressure : */* mmHG Vent. Rate : 78 BPM Atrial Rate : 74 BPM P-R Int : * ms QRS Dur : 94 ms QT Int : 404 ms P-R-T Axes : * -42 57 degrees QTcB Int : 460 ms Atrial fibrillation Left axis deviation Low voltage QRS Cannot rule out Anteroseptal infarct (cited on or before 17-Mar-2024) Abnormal ECG When compared with ECG of 20-Mar-2024 13:42, No significant change was found Confirmed by Jn Beckham ([id number]) on 03/23/2024 4:25:12 PM Referred By: REFERRED SELF Confirmed By: Jn Beckham
[2024-03-24 02:55] VITALS: RESP 18; O2SAT 98
[2024-03-24 14:53] VITALS: TEMP 98.2
[2024-03-24 15:57] VITALS: BP 122/67; PULSE 79
--- NOTE | 2024-03-25 09:22 | Discharge Summary ---
Date of Service March 25, 2024 Admission HPI Per Admitting Provider Is a 78-year-old male with significant past medical history of end-stage renal disease on hemodialysis, atrial fibrillation not on any anticoagulation due to retroperitoneal bleed while on Coumadin on 01/2021, diabetes type 2 hypertension hyperlipidemia was brought in to emergency room with strokelike symptoms as observed by the daughter. He was in the table eating and following that his daughter noticed that his right side of the face was drooping and at the time he has had garbled speech and not sure what he was doing. This lasted for about 5 minutes without any other symptoms and symptoms completely resolved after 5 minutes. In the emergency room he did not have any neurological deficit or symptoms but noted to have a very high blood pressure of systolic more than 200 and received intravenous labetalol and the blood pressure was improving. He is apparently investigations including CT scan of the head and CTAs were unremarkable but he will have an MRI to make sure there is no stroke. He was started with intravenous heparin which will be discontinued given the history of intracranial bleed. He was admitted to telemetry unit for continuation of care. Admission Exam Per Admitting Provider Physical Exam: Lying in bed without any acute distress Constitutional: well developed, well nourished and + ill appearing Eyes: PERRL, conjunctivae normal, anicteric sclerae ENMT: external ear and nose normal, oropharynx normal Neck: trachea midline, no thyromegaly Respiratory: normal respiratory effort, lungs clear to auscultation Cardiovascular: Rate/Rhythm: regular rate and regular rhythm; not tachycardic Heart Sounds: normal S1 and normal S2; no murmur Extremities: no edema Gastrointestinal (Abdomen): Inspection/Auscultation: normal bowel sounds; abdomen not distended Percussion/Palpation: abdomen soft; abdomen nontender Musculoskeletal: No acute arthritis involving any of the joint Neurologic: normal touch/pain/proprioception and moves all extremities; no focal motor deficits Lymphatic: no cervical or axillary lymphadenopathy Principal Diagnosis Strokelike symptoms- resolved and no stroke, ESRD on hemodialysis, hypertensive urgency, acute confusion Discharge Exam Sitting on a chair without any acute distress Constitutional well developed, well nourished, + ill appearing and average body habitus Eyes PERRL, conjunctivae normal, anicteric sclerae ENMT external ear and nose normal, oropharynx normal Neck trachea midline, no thyromegaly Respiratory normal respiratory effort, lungs clear to auscultation no respiratory distress Auscultation: + diminished lung sounds Cardiovascular Rate/Rhythm: regular rate and regular rhythm; not tachycardic Heart Sounds: normal S1 and normal S2; no murmur Extremities: no edema Gastrointestinal (Abdomen) Inspection/Auscultation: normal bowel sounds; abdomen not distended Percussion/Palpation: abdomen soft; abdomen nontender Neurologic normal touch/pain/proprioception and moves all extremities; no focal motor deficits Lymphatic no cervical or axillary lymphadenopathy Discharge Data Allergies Allergy/AdvReac Type Severity Reaction Status Date / Time LUCHO Inhibitors Allergy Unknown Unknown Verified 10/25/22 11:42 reaction (Per S records) sitagliptin AdvReac Unknown Lightheadedness, Verified 10/25/22 11:42 upper abdominal pain Ehbeeid-BXK-EiD Reductase AdvReac Unknown Myopathy Verified 10/25/22 11:42 Inhibitor [Lfawjkl-Ksz-Fzs Reductase Inhibitor] Consultations 03/17/24 17:24 ED Decision to Admit Stat 03/17/24 21:02 Consult Nephrology Routine 03/19/24 10:39 Consult Psychiatry Routine Ordered Studies 03/17/24 15:59 CT angio head w con Stat CT angio neck with con Stat CT head/brain wo con Stat 03/17/24 17:44 MR brain wo con Routine Hospital Course (1) Stroke-like symptoms: Presented with right facial droop and garbled speech resolved within 5 minutes Initial CTA and CT scan of the head unremarkable Will get MRI to rule out any stroke Will observe in telemetry unit and get an echocardiogram MRI of the head has been negative for any stroke and will get echocardiogram to evaluate cardiac functions Does not have any more signs and or symptoms of TIA Will discuss with the hand blocker for possible administering baby aspirin to prevent stroke No more signs and or symptoms of TIA with that that holds mostly going to send him home later on Saturday No neurological symptoms Acute confusion with combative behavior Happened to be after dialysis Radha heredia was called and he received IM Zyprexa 2.5 mg and also required wrist restraint Has been requiring restraint and the confusion is persisting The daughter and the son feel that this time the confusion is worse compared with before Appreciate psychiatrist input and recommendation The medications have been updated as per psychiatrist recommendation He has been much improved and seems to be at his baseline with memory Has been conversing well and listening to instructions and committed to follow dose Much better today even following dialysis As needed reevaluation by the psychiatrist Will get PT and OT evaluation and possible discharge following the recommendation Code purple Happened at the middle of dialysis when his blood pressure went down to systolic 70s and the patient has had profuse bile vomiting He remained less/unresponsive and received 500 mL of normal saline bolus Apparent investigations including CBC, BMP, chest x-ray were unremarkable Troponin is minimally high secondary to a stress-induced and will repeat in 6 hours Discussed with the family members Will observe for now and the patient is likely to be a DNR DNI after checking advanced directive papers at home by the daughter Will observe- shows significant improvement since this morning Has had Code purple last evening x 2 and were managed appropriately with IM Zyprexa and second time with intravenous Ativan Has been feeling much better and can remember the events of last evening Elevated troponin-Demand Ischemia Happened to be following the "portable with highest level went up to 531 No EKG changes and no cardiac symptoms Echo of the heart did not show any wall motion abnormality Doubt any ACS and the elevation of troponin is secondary to demand ischemia (2) Hypertensive urgency: Initial blood pressure noted to be very high at systolic more than 200 Received intravenous labetalol and the blood pressure is coming down Denies any chest pain, shortness of breath or palpitation Blood pressure remains stable with current medications Blood pressure seems to be at the lower side at 99/45 Blood pressure is controlled now (3) Atrial fibrillation: History of atrial fibrillation was on Coumadin before Coumadin has been discontinued secondary to retroperitoneal bleed in 2020 Patient has been started with intravenous heparin and that will be discontinued. Currently the rate is controlled (4) Diabetes mellitus, type II: Has type 2 diabetes on insulin We will continue with current insulin regimen (5) Hyperlipidemia: Continue statin (6) ESRD (end stage renal disease) on dialysis: Missed his last hemodialysis Next dialysis tomorrow Nephrology consult-appreciate input and recommendation Continue hemodialysis as per hand blocker Other chronic medical conditions remained stable DVT prophylaxis Subcu heparin CODE STATUS Full Discussed with the daughter in detail for his atrial fibrillation and the reason why he has not been on any anticoagulation Discussed with the daughter yesterday and will discuss further Total Time Total Time Spent Total Time Spent (In Minutes): 40 minutes Discharge Plan Discharge Items Patient Disposition: Home - Home Health Services Reason For Visit: STROKE LIKE SYMPTOMS,HTN,A FIB Discharge Diagnosis: strokelike symptoms- resolved and no stroke, ESRD on hemodialysis, hypertensive urgency, acute confusion Activity: Resume your previous activity Non-emergency contact: Primary Care Provider Call non-emergency contact if: you have any medication questions and your symptoms worsen Follow-up/Referrals: Fiona Novoa DO [Primary Care Provider] - (Date & Time 03/31/2024 10:00 AM Provider: Fiona Novoa DO Department: Family [facility] ) Diet: Dialysis Renal and Heart Healthy Addtl Attending Provider Instructions: please take precaution to avoid falls Take your medications as advised Please keep regular appointments with the dialysis clinic Keep appointments with the healthcare provider Pending Studies at Discharge: No Stand-Alone Forms: My [employer], Smoking Cessation Medications and DC Order Prescriptions: New quetiapine 25 mg Tablet 25 mg PO HS Qty: 30 0RF melatonin 3 mg Tablet 3 mg PO HS PRN (Reason: sleep) Qty: 30 0RF olanzapine 5 mg Tablet,Disintegrating 5 mg PO BID PRN (Reason: agitation) Qty: 10 0RF doxazosin 1 mg Tablet 1 mg PO HS Qty: 30 0RF Continued cyanocobalamin (vitamin B-12) [Vitamin B-12] 1,000 mcg Tablet 1,000 mcg PO QAM cholecalciferol (vitamin D3) [Vitamin D3] 1,000 unit Capsule 2,000 unit PO QAM famotidine [Pepcid] 20 mg Tablet 20 mg PO 3XWK PRN (Reason: Heartburn) Patient Comments: mon, wed, fri -morning ferrous sulfate [iron] 325 mg (65 mg iron) Tablet 325 mg PO QAM vitamin E 200 unit Tablet 45 mg PO QPM ezetimibe 10 mg tablet 10 mg PO DAILY calcium acetate(phosphat bind) 667 mg capsule 667 mg Rx Instructions: 2 aps with meals 1 cap with snacks losartan 50 mg tablet 25 mg PO QAM metoprolol succinate 25 mg tablet extended release 24 hr See Rx Instructions .ROUTE .COMPLEX Rx Instructions: 1.2 tab m-w-f after dialysis Discharge Orders: Discharge Order (Routine); Ordered 03/24/24 Ordered By: Harper Sahu/Other Patient Handouts: High Blood Sugar (Hyperglycemia), Hypoglycemia (Low Blood Sugar), Managing Type 2 Diabetes Admission Data Admit Date/Time: 03/17/24 18:04 Attending Provider: Harper Briggs Admit Provider: Harper Briggs Primary Care Provider: Fiona Novoa Other Providers: Harper Briggs; Brooklyn Carpenter; Nuzhat Soares; Hoang Abreu; Asya Merritt; Diane Ricardo; Juan Daniel King; Marielos Luna; Jono Fournier; [facility] Other Interventions: Discharge Summary Assessment (RN) Last Done: 03/24/24 15:56
== END 2024-03-24 17:22 | disposition home health service (06) | DRG 91 ==
LOC: ED 16:07 → EDINP 18:04 → 4W 20:32